=== PATIENT | male | born 1930 | race Caucasian/White ===

== ENCOUNTER 2018-03-27 22:00 | Inpatient (IN) | payer MEDICARE ==
[~2018-03-27] VITALS: Ht 182.9 cm; Wt 63.9 kg
[~2018-03-27 22:00] MED LIST: ALDACTONE25 MG PO; ALENDRONATE SOD70 MG PO; ANORO ELLIPTA1 EACH INH; ASPIR 8181 MG PO; BISOPROLOL FUMAR5 MG PO; CARDURA2 MG PO; CO Q-10200 MG PO; COUMADIN2 MG PO; DILTIAZEM 24HR120 MG PO; IPRAT-ALBUT 0.5-3 ML INH; LANOXIN125 MCG PO; LASIX40 MG PO; LISINOPRIL2.5 MG PO; MIRALAX17 GM PO; MULTI VITAMIN1 EACH PO; OXYBUTYNIN CHLOR5 MG PO; OXYCODONE HCL5 MG PO; SENNA8.6 MG PO; VENTOLIN HFA18 GM INH; ZOCOR20 MG PO
--- OUTSIDE RECORDS SUMMARY | 2018-03-27 22:08 | XMS ---
PreManage Notification: RUDY MARTI Security Project Intern Events No recent Security Events currently on file CRITERIA MET - [facility] - Has Care Guidelines CARE PROVIDERS There are no care providers on record at this time. Guidelines Source: [facility] Guidelines Date: 03/05/2018 Care Coordination: PATIENT IS UNDER SERVICES AT [facility].\T\nbsp; IF PATIENT IS SEEN IN THE ED, PLEASE NOTIFY THEM AT [phone].\T\nbsp; IF AFTER HOURS OR ON WEEKENDS PLEASE CALL SWITCHBOARD AT [phone] AND HAVE ON-CALL RN NOTIFIED. E.D. VISIT COUNT (12 MO.) 1 [facility] 1 [facility]. TOTAL 2 NOTE: Visits indicate total known visits. ED/UCC VISIT TRACKING (12 MO.) 03/27/2018 22:04 ROJELIO Longo TYPE: Emergency COMPLAINT: - [facility] TYPE: Emergency DIAGNOSES: - Shortness of Breath - Acute pulmonary edema - Heart failure, unspecified - Presents with CC of SOB and low 02 sat. - Chronic obstructive pulmonary disease with (acute) exacerbation - Wedge compression fracture of T11-T12 vertebra, initial encounter for closed fracture - Swelling INPATIENT VISIT TRACKING (12 MO.) [facility]14[facility]2017 [facility] TYPE: Inpatient Rehab DIAGNOSES: - Deconditioning 11/11/2017 15:27 [facility] TYPE: General Medicine DIAGNOSES: - Heart failure, unspecified - Chronic obstructive pulmonary disease with (acute) exacerbation - Acute pulmonary edema - Unspecified atrial fibrillation - Repeated falls - Shortness of breath - Wedge compression fracture of T11-T12 vertebra, initial encounter for closed fracture - Low back pain [email or web address]
[2018-03-27] MEDS ORDERED: LASIX20 MG PO (22:39)
[2018-03-28] MEDS ORDERED: K-TAB10 MEQ PO (01:29)
--- NOTE | 2018-03-28 03:00 | NUR ---
PATIENT ARRIVED TO ROOM 129 VIA STRETCHER, TRANSFERED TO BED WITH 1PA. NOW RESTING IN BED, BREATHING IS EVEN AND UNLABORED. DENIES CHEST PAIN OR FEELING SOB. DENIES NEEDS AT THIS TIME. CALL LIGHT WITHIN REACH.
--- NOTE | 2018-03-28 04:30 | NUR ---
PATIENT RESTING IN BED WITH EYES CLOSED, BREATHING IS EVEN AND UNLABORED. CALL LIGHT WITHIN REACH.
--- NOTE | 2018-03-28 05:46 | NUR ---
TITRATED O2 TO 4L O2 VIA NC DUE TO SATURATIONS <88%. PATIENT RR IS 20, DENIES SOB, NO CHEST PAIN. PATIENT NOT DIAPHORETIC, NO APPARENT SIGNS OF DISTRESS. CALL LIGHT WITHIN REACH.
--- NOTE | 2018-03-28 06:11 | NUR ---
NOTIFIED DR. ARCOS REGADING PATIENT'S POTASSIUM OF 5.5 AND SODIUM OF 129. NO NEW ORDERS AT THIS TIME. ALSO CONFIRMED THAT NO FURTHER TROPONIN TESTS WERE NEEDED.
--- NOTE | 2018-03-28 08:07 | NUR ---
PATIENT RESTING IN BED UPON INITIAL ASSESSMENT. PT'S HEART RATE NOTED TO BE LUIZ, ANYWHERE FROM 35-60s. PT IS AWAKE, ALERT, AND ORIENTED. SP02 IS RANING IN THE MID TO UPPER 80-LOW 90s ON 3 L NC. PT NORMALLY WEARS 2 L NC AT HOME AT BASELINE. PT'S DAUGTHER IN LAW BEBA IN ROOM AND BRINGS PT HIS GLASSES AND DENTURES. RT PROVIDING NEB TX. PT IS SHORT OF BREATH WITH TOO MUCH ACTIVITY OR TALKING. CARTER DRAINING CLEAR YELLOW URINE. PT HAS CRACKLES BILATERALLY TO HIS LOWER BASES AND LOW AIR MOVEMENT NOTED TO RIGHT SIDE ESPECIALLY. TRACE PITTING EDEMA NOTED TO BILATERAL LOWER LEGS. SCDs ON. LAB DRAWING NEXT BMP. PLAN OF CARE DISCUSSED WITH PATIENT. CONTINUE TO MONITOR.
--- NOTE | 2018-03-28 09:30 | NUR ---
DR. ARCOS CALLED AND UPDATED ON PT'S HEART RHYTHM AND MOST RECENT POTASSIUM LEVEL. EKG ORDERED AND DONE AT THIS TIME. PT NOTED TO BE HAVING MORE PVCs AND HR MAINTAINING IN THE LOW 40-50s. PT RESTING IN BED. URINE OUTPUT REMAINS CLEAR. MONITOR CLOSELY.
--- NOTE | 2018-03-28 09:53 | NUR ---
DR. ARCOS IN ROOM TO SEE PATIENT AT THIS TIME. CARTER DRAINING CLEAR DILUTE URINE AT THIS TIME.
--- NOTE | 2018-03-28 10:04 | NUR ---
KUB COMPLETED AT THIS TIME. PT IS VERY PAINFUL WHEN LYING ON HIS BACK FLAT. TYLENOL AND FLOMAX GIVEN, WELL AN ADDITIONAL 20 MG IV LASIX AT THIS TIME. PT SHORT OF BREATH WITH MUCH ACTIVITY. STILL ON 3 L NC. CONTINUE TO MONITOR.
--- NOTE | 2018-03-28 11:02 | NUR ---
PATIENT GIVEN POTASSIUM LOWERING PROTOCOL OF MEDICATIONS WHICH INCLUDED 1 AMP OF 13.6 MEQ CALCIUM CHLORIDE, 25 ML OF D50, 10 UNITS OF REGULAR INSULIN IV, AND 1 AMP OF SODIUM BICARB. PT TOLERATED WELL. CARTER CONTINUES TO PUT OUT CLEAR YELLOW URINE. PT ALERT AND SITTING UP WATCHING TV. CALL LIGHT IN PT'S HAND.
[2018-03-28] MEDS ORDERED: SPIRONOLACTONE25 MG PO (12:06)
--- NOTE | 2018-03-28 14:43 | NUR ---
ADDITIONAL 20 MG IV LASIX GIVEN AROUND THIS TIME. PT'S FAMILY ARRIVES IN ROOM AND HAS QUESTIONS ABOUT PATIENT'S CARE AND TIMELINE OF POTENTIAL DISCHARGE. FAMILY ALSO WANTING TO DISCUSS PT'S STATUS WITH PHYSICIAN AT SOME POINT TODAY IF POSSIBLE. DR. CODY TO BE NOTIFIED LATER THIS AFTERNOON. PT'S CARTER CONTINUES TO DRAINE DILUTE YELLOW URINE. PT GIVEN 1000 MG PO TYLENOL FOR CHRONIC BACK PAIN. PT AND FAMILY ALSO CONCERNED ABOUT PT'S BOWEL HABITS, AND THE FACT THAT HE WILL LIKELY NEED STOOL SOFTENERS TO HELP HIM WITH HAVING A BM. CONTINUE TO MONITOR.
[2018-03-28] MEDS ORDERED: WARFARIN SODIUM2 MG PO (15:04)
[2018-03-28] MEDS ORDERED: DAILY MULTIPLE1 EACH PO (15:05)
[2018-03-28] MEDS ORDERED: PRESERVISION A1 EAC3 PO (15:05)
[2018-03-28] MEDS ORDERED: CALCIUM 500 +1 EAC3 PO (15:06)
[2018-03-28] MEDS ORDERED: MYRBETRIQ25 MG PO (15:07)
[2018-03-28] MEDS ORDERED: OXYCODONE HCL5 MG PO (15:09)
[2018-03-28] MEDS ORDERED: NAPROSYN500 MG PO (15:10)
[2018-03-28] MEDS ORDERED: TYLENOL EXTRA500 MG PO (15:11)
--- NOTE | 2018-03-28 15:13 | NUR ---
MED REC COMPLETE
--- NOTE | 2018-03-28 17:19 | NUR ---
LAB IN TO DRAW 1700 LABS AT THIS TIME. PT'S DINNER ORDERED. PT HAS RESTED WELL THIS AFTERNOON. PT SEEMS LESS SHORT OF BREATH TONIGHT AND LUNG SOUNDS SHOWED IMPROVEMENT THIS LAST ASSESSMETN WITH LESS CRACKLES AND MORE AIR ENTRY APPRECIATED. CARTER STILL DRAINING CLEAR YELLOW URINE. CONTINUE TO MONITOR.
--- NOTE | 2018-03-28 18:34 | NUR ---
PATIENT'S OXYGEN TURNED UP TO 4 L NC FROM 3, SP02 WAS HOVERING AT 85-87%. PT ASKED TO TAKE A FEW DEEP BREATHS WHICH HE ATTEMPTS TO DO, BUT STATES, "I JUST DON'T FEEL LIKE I CAN YET TAKE A FULL DEEP BREATH." DR. CODY UPDATED ON PT'S STATUS OVERALL. PT SITTING UPRIGHT IN BED WATCHING TV AND ATE 100% OF HIS DINNER. CONTINUE TO MONITOR.
--- NOTE | 2018-03-28 19:30 | NUR ---
SHIFT REPORT RECEIVED FROM SELAM SEXTON. PT CURRENTLY RESTING IN BED, 2 VISITORS AT BEDSIDE. 4L O2 VIA NC IN PLACE. EMMA PATENT. CALL LIGHT WITHIN REACH.
--- NOTE | 2018-03-28 20:06 | NUR ---
ASSESSMENT COMPLETED. PT IS ALERT/ORIENTED, DENIES PAIN. LUNGS CLEAR, DIM IN BASES, 4L O2 VIA NC IN PLACE, RT IN TO GIVE BREATHING TREATMENT. HR REGULAR, MURMUR NOTED. BOWEL TONES ACTIVE, DENIES NAUSEA, SENNA AND MIRALAX GIVEN. SKIN GROSSLY INTACT, TRACE EDEMA IN BLE, SCD'S IN PLACE. IV IN RIGHT AC IS PAINFUL AND SLUGGISH WHEN FLUSHED, BRUISED AT SITE, D/C'D WNL. SITE IN FOREARM PATENT, SL. PT HAS CALL LIGHT WITHIN REACH, WILL CONTINUE TO MONITOR.
--- NOTE | 2018-03-28 20:26 | NUR ---
20G IV PLACED ON FIRST ATTEMPT VIA ASEPTIC TECHNIQUE IN LEFT FOREARM. PT TOLERATED WELL.
--- NOTE | 2018-03-28 22:05 | NUR ---
PT REMAINS AWAKE AND WATCHING TV. DENIES NEEDS AT THIS TIME, STATES HE THINKS ITS ABOUT TIME TO TRY TO GO TO SLEEP. CALL LIGHT WITHIN REACH, WILL CONTINUE TO MONITOR.
--- NOTE | 2018-03-29 00:17 | NUR ---
PT APPEARS TO BE SLEEPING, NO APPARENT DISTRESS. RESPIRATIONS EVEN AND UNLABORED, RR:21, SPO2: 92% ON 4L VIA NC. LUNGS REMAIN CLEAR/DIM. HR REGULAR WITH MURMUR. CARTER PATENT, DRAINING CLEAR YELLOW URINE. WILL ALLOW FOR REST AND CONTINUE TO MONITOR.
--- NOTE | 2018-03-29 02:25 | NUR ---
PT CONTINUES TO SLEEP, NO APPARENT DISTRESS. RESPIRATIONS EVEN AND UNLABORED, RR:15, SPO2:98% ON 4L, HR:65. WILL ALLOW FOR REST AND CONTINUE TO MONITOR.
--- NOTE | 2018-03-29 04:05 | NUR ---
PT CONTINUES TO SLEEP, NO APPARENT DISTRESS. RESPIRATIONS EVEN AND UNLABORED, RR: 17, SPO2: 98% ON 4L, LUNGS REMAIN CLEAR/DIM. HR REGULAR, MURMUR. CARTER PATENT, UO QS. WILL ALLOW FOR REST AND CONTINUE TO MONITOR.
--- NOTE | 2018-03-29 06:32 | NUR ---
STANDING WEIGHT: 148.1 POUNDS. DOWN 4.3LBS (1.95KG) FROM ADMIT WEIGHT.
--- NOTE | 2018-03-29 08:39 | NUR ---
PATIENT RESTING IN BED THIS AM UPON INITIAL ASSESSMENT. PATIENT STATES HE SLEPT WELL THROUGH THE NIGHT. ASSESSMENT AND VITALS COMPLETE. PT'S OXYGEN TURNED BACK DOWN TO 3 L SP02 NOTED TO BE 97%. PATIENT HELPED UP TO CHAIR THIS AM. LINEN CHANGED. PT'S FAMILY NOW IN ROOM VISITING WITH HIM. PATIENT STATES HE FEELS LIKE HE CAN TAKE SOMEWHAT OF A DEEPER BREATH OVERALL. CRACKLES NOTED TO LOWER BASES STILL. TRACE EDEMA IN PRETIBIAL AREAS. CARTER DRAINING DILUTE YELLOW URINE. AM MEDS GIVEN WITHOUT DIFFICUTLY. PT'S WEIGHT 148.1 LB ON STANDING SCALE THIS AM. CONTINUE TO MONITOR CLOSELY.
--- NOTE | 2018-03-29 09:55 | NUR ---
PATIENT WORKED WITH PHYSICAL THERAPY AND WALKED FROM 129, DOWN TO [address] TO THE END OF CCU [place] BY 130 BEFORE RETURNING TO HIS ROOM. PT USED A FRONT WHEEL WALKER AND REMAINED ON OXYGEN DURING THIS MOVEMENT AND TOLERATED IT WELL. PT STATES HE EVEN SUPRISED HIMSELF WITH HOW WELL HE MOVED. PT NOW SITTING IN CHAIR WATCHING TV. PT'S FAMILY HAS LEFT AT THIS TIME, BUT STATE THEY WILL RETURN LATER TODAY. CONTINUE TO MONITOR.
--- NOTE | 2018-03-29 11:55 | NUR ---
PATIENT WANTING TO WALK AGAIN AND WALKED IN [place] WITH THIS RN. PT AGAIN WALKED TO END OF CCU [place] AND BACK. PT TOLERATED WELL, BUT DID NOTE HIMSELF TO BE A LITTLE MORE WINDED AFTER THIS WALK. LUNCH NOW IN ROOM AND PT UP IN CHAIR EATING. PT WANTING TO WAIT UNTIL THIS AFTERNOON TO SHOWER. PT WILL BE GIVEN A SUPPOSITORY TO TRY AND HELP HIM HAVE A BM. CALL LIGHT WITHIN REACH. CONTINUE TO MONITOR.
--- NOTE | 2018-03-29 13:46 | NUR ---
PATIENT WALKED AGAIN IN HALLWAY AND TOLERATED FAIR. PT THEN INTO BATHROOM TO HAVE A BM WHICH WAS LARGE AND FORMED. DULCOLAX SUPP GIVEN TO PATIENT STILL HE STILL REQUETED TO HAVE IT. PT HAS TWO VISITORS NOW AT BEDSIDE. CONTINUE TO MONITOR.
--- NOTE | 2018-03-29 14:16 | NUR ---
PATIENT HAD ANOTHER BM, SOME IN HIS ATTENDS. PATIENT SAT ON COMMODE AGAIN AND HAD MORE OF A LARGE BM. PT HELPED BACK TO BED AND NOW RESTING. FRIENDS IN ROOM AGAIN.
--- NOTE | 2018-03-29 15:18 | NUR ---
PATIENT'S VISITORS GONE AT THIS TIME AND PATIENT GOING TO REST UNTIL AROUND 1600. PLAN TO WALK PATIENT TO END OF ESP[place]OSA AND HELP HIM SHOWER AROUND 1600.
--- NOTE | 2018-03-29 18:47 | NUR ---
PATIENT WALKED DOWN TO SHOWER ROOM AND TOLERATED SHOWER WELL. PT THEN SAT IN CHAIR AND ATE DINNNER. PT RE-WEIGHED FOR 147.7 LB THIS EVENING. CARTER EMPTIED FOR 925 ML DILUTE URINE. PT'S FAMILY BACK TO VISIT THIS EVENING. PT REMAINS IN CHAIR AT THIS TIME. CONTINUE TO MONITOR.
--- NOTE | 2018-03-29 18:59 | NUR ---
PATIENT HELPED BACK TO BED AT THIS TIME. PT IS A ONE PERSON ASSIST TO TRANSFER AND TOLERATES THIS ACTIVITY WELL. PT AWARE OF HOW MUCH FLUID HE HAS LEFT TO DRINK FOR THE REST OF THE DAY.
--- NOTE | 2018-03-29 19:20 | NUR ---
SHIFT REPORT RECEIVED FROM SELAM SEXTON. PT CURRENTLY SITTING UP IN CHAIR, TRANSFERRED BACK TO BED WITH SBA. 3L O2 VIA NC IN PLACE. EMMA PATENT. IV'S SL. CALL LIGHT WITHIN REACH.
--- NOTE | 2018-03-29 19:53 | EKG ---
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
--- NOTE | 2018-03-29 19:53 | EKG ---
[facility] [address] [place] [address] Signed Junctional bradycardia Possible Anterior infarct (cited on or before 27-MAR-2018) Abnormal ECG When compared with ECG of 27-MAR-2018 22:12, (Unconfirmed) Current undetermined rhythm precludes rhythm comparison, needs review ST no longer depressed in Anterior leads Confirmed by SOURAV CODY MD ([id number]) on 03/29/2018 7:53:23 PM Electronically Signed By: SOURAV CODY MD 03/29/181952 PATIENT NAME: RUDY MARTI Electrocardiogram DATE OF : 34 PHYSICIAN: SOURAV CODY MD REPORT #: [id number] REPORT IS CONFIDENTIAL AND NOT TO BE RELEASED WITHOUT AUTHORIZATION
--- NOTE | 2018-03-29 20:45 | NUR ---
ASSESSMENT COMPLETED. ALERT/ORIENTED, DENIES PAIN. LUNGS CLEAR AND DIM IN THE BASES, 3L O2 VIA NC IN PLACE, DENIES SOB. HR REGULAR, MURMUR, DENIES CHEST PAIN. BOWEL TONES ACTIVE, DENIES NAUSEA. IV SITES PATENT, SL. CARTER PATENT, DRAINING CLEAR YELLOW URINE. PT DENIES NEEDS AT THIS TIME, CALL LIGHT IS WITHIN REACH. WILL CONTINUE TO MONITOR.
--- NOTE | 2018-03-29 22:20 | NUR ---
INCREASED O2 TO 4L, PT DESATURATING INTO LOW-MID 80'S.
--- NOTE | 2018-03-29 23:45 | NUR ---
ASSESSMENT COMPLETED, NO CHANGES FROM PREVIOUS ASSESSMENT. PT DENIES NEEDS AT THIS TIME, WILL CONTINUE TO MONITOR.
--- NOTE | 2018-03-30 02:42 | NUR ---
PT SLEEPING, NO APPARENT DISTRESS. RESPIRATIONS EVEN AND UNLABORED, RR:17, SPO2: 100% ON 4L, HR: 70. WILL ALLOW FOR REST AND CONTINUE TO MONITOR.
--- NOTE | 2018-03-30 04:24 | NUR ---
PT SLEEPING, NO APPARENT DISTRESS. RESPIRATIONS EVEN AND UNLABORED, RR:17, SPO2:99% ON 4L, HR:74. WILL ALLOW FOR REST AND CONTINUE TO MONITOR.
--- NOTE | 2018-03-30 06:15 | NUR ---
COUDE CATHETER REMOVED AFTER 5ML DEFLATED FROM BALLOON. PT TOLERATED WELL. PT UP TO STANDING SCALE WITH SBA, WEIGHT: 145.2 POUNDS. PT TOLERATED ACTIVITY WELL, DENIES SOB. FRESH ICE WATER PROVIDED. NO FURTHER REQUESTS AT THIS TIME.
[2018-03-30] MEDS ORDERED: DOXAZOSIN MESYLA1 MG PO (08:57)
--- NOTE | 2018-03-30 09:05 | NUR ---
PATIENT'S SON IN ROOM EARLIER THIS AM AND PT EATING HIS BREAKFAST. PT STATES HE HAD A GOOD NIGHT OVERALL, BUT STRUGGLED TO FALL ASLEEP. SHEETER MACHINE OPERATOR NOW IN ROOM TALKING WITH PATIENT. PT HAS VOIDED TWICE SINCE EMMA WAS D/C. CALL LIGHT WITHIN REACH. PT REPORTS FEELING LESS SHORT OF BREATH TODAY.
--- NOTE | 2018-03-30 10:23 | NUR ---
PATIENT USES CALL LIGHT AND NEEDS TO WALK INTO BATHROOM TO HAVE A BM. PT HAD SOME IN HIS ATTENDS, AND NOW SITTING ON TOILET. PT ALSO WORKED WITH OCCUPATIONAL THERAPY THIS AM.
--- NOTE | 2018-03-30 11:26 | NUR ---
PATIENT WORKED WITH PHYSICAL THERAPY AND WALKED DOWN TO PHYS THERAPY ROOM AND BACK. DR. CODY IN ROOM TO EVAL PATIENT. RT NOW IN ROOM ADMINISTERING CB LEÓN
--- NOTE | 2018-03-30 11:32 | NUR ---
PATIENT TO TRANSITION TO THE MEDICAL FLOOR WITHOUT TELEMETRY. PATIENT TO BE GIVEN A DOSE OF DIAMOX TODAY. CONTINUE TO MONITOR.
--- NOTE | 2018-03-30 13:11 | NUR ---
REPORT GIVEN TO SELAM ROWAN ON MED/SURG AND PATIENT TAKEN OVER TO ROOM 107 AT 1305.
--- NOTE | 2018-03-30 13:22 | NUR ---
PATIENT TRANSFERED FROM CCU. REPORT RECEIVED FROM SELAM ROWAN. ASSESSMENT DONE. PATIENT SITTING IN CHAIR WATCHING TV. CALL LIGHT WITHIN REACH.
--- NOTE | 2018-03-30 13:51 | NUR ---
PATIENT WAS SLEEPING, FAMILY IN ROOM. CALL LIGHT IN REACH. NO OTHER NEEDS AT THIS TIME.
--- NOTE | 2018-03-30 13:53 | NUR ---
Medications reconciled with RX bottles and patient interview.
--- NOTE | 2018-03-30 14:21 | NUR ---
PATIENT SITTING UP IN HIS CHAIR, WATCHING TV. VITALS TAKEN NO I & OS AT THIS TIME. NO OTHER NEEDS AT THIS TIME
--- NOTE | 2018-03-30 15:53 | NUR ---
ROUNDED ON PATIENT. REFILLED WATER FOR AFTERNOON FREE WATER. CALL LIGHT WITHIN REACH. NO FURTHER REQUESTS AT THIS TIME.
--- NOTE | 2018-03-30 16:07 | NUR ---
REPORT RECEIVED FROM ANUM DOSS. THIS RN TAKING OVER CARE FOR PATIENT. PATIENT SITTING IN RECLINER. 3L [address] PT REPORTS WEARING 2L 02 CHRONICALLY DAY AND NIGHT AT HOME. PT WATCHING TELEVISION. REFUSES STOOL SOFTENERS PLANNED FOR EVENING MED PASS. BM THIS MORNING.
--- NOTE | 2018-03-30 17:20 | NUR ---
PATIENT REQUESTED A SHOWER. SHOWER WAS GIVING BY MELQUIADES GUTIERREZ, PATIENT IS WITH FAMILY, REQUESTED TO STAY UP AND MOVE AROUND. NO OTHER NEEDS AT THIS TIME
--- NOTE | 2018-03-30 18:10 | NUR ---
3L 02 VIA GA. 2L CHRONIC. DUONEBS QID. NEBS Q2P. MIRALAX AND SENNA HELD THIS EVENING. BM THIS MORNING. COUMADIN GIVEN. LASIX THIS MORNING. CARTER OUT THIS MORNING. VOIDING WELL. FINE CRACKLES LEFT LOBE. CLEAR RIGHT LOBE. PT/OT. 1PA/SBA FWW. DAILY WEIGHT 145.2# TODAY. IV X2 SALINE LOCKED. CARDIAC DIET. 1800ML FLUID RESTRICTION.
--- NOTE | 2018-03-30 19:00 | NUR ---
RECEIVED REPORT FROM DAY SHIFT RN. PATIENT IS RESTING IN RECLINER VISITING WITH FAMILY. PATIENT DENIES ANY NEEDS AT THIS TIME. ALL QUESTIONS ANSWERED. CALL LIGHT IN REACH.
--- NOTE | 2018-03-30 20:15 | NUR ---
PATIENT ASSESMENT COMPLETED. PATIENT ASSISTED INTO BED BY COURT INTERPRETER. VITALS TAKEN AND RECORDED BY COURT INTERPRETER. PATIENT DENIES ANY [AIN OR SOB. PATIENT TOELRATED ACITVITY WELL. PATIENT IS A SBA W/FWW AND DOES WELL WITH AMBULATION. PATIENT DENIES ANY FURTHER NEEDS. PATIENT IS NOW RESTING IN BED WATCDHING TV. CALL LIGHT IN REACH. COURT INTERPRETER GAVE PATIENT MORE ICE WATER. PATIENT EDUCATED ON HIS FLUID RESTRICTION AND HOW MUCH IS LEFT UNTIL 0600. PATIENT VERBALIZES UNDERSTANDING.
--- NOTE | 2018-03-30 21:00 | EKG ---
[facility] [address] [facility] [place] [address] Signed Sinus bradycardia with marked sinus arrhythmia with 1st degree AV block Nonspecific T wave abnormality Abnormal ECG When compared with ECG of 28-MAR-2018 01:28, (Unconfirmed) Previous ECG has undetermined rhythm, needs review Borderline criteria for Anterior infarct are no longer present Confirmed by SOURAV CODY MD ([id number]) on 03/30/2018 9:00:21 PM Electronically Signed By: SOURAV CODY MD 03/30/18 2100 PATIENT NAME: RUDY MARTI Electrocardiogram DATE OF : 34 PHYSICIAN: SOURAV CODY MD REPORT #: [id number] REPORT IS CONFIDENTIAL AND NOT TO BE RELEASED WITHOUT AUTHORIZATION
--- NOTE | 2018-03-30 23:34 | NUR ---
PATIENT IS RESTING IN BED WATCHING TV. PATIENT DENIES ANY NEEDS. CALL LIGHT IN REACH. BED ALARM ON FOR SAFETY.
--- NOTE | 2018-03-31 00:12 | NUR ---
1PA/ SBA TO THE BATHROOM AND BACK TO BED. CALL LIGHT AND BEDSIDE TABLE WITHIN REACH.
--- NOTE | 2018-03-31 02:20 | NUR ---
PATIENT AWOKEN WHEN ROOM WAS ENTERED. PATIENT REPOSITIONED IN BED. ASSESMENT COMPLETED. PATIENT DENIES ANY SOB. NO NEEDS NOTED. CALL LIGHT IN REACH.
--- NOTE | 2018-03-31 03:52 | NUR ---
PATIENTS BED ALARM ALERTED STAFF THAT PATIENT WAS GETTING UP. PATIENT ASSISTED TO THE RESTROOM A SBA. PATIENT WAS INCONTINET AND WAS ABLE TO VOID. PATIENTS BEDDING CHANGED. PATIENT IS NOW BACK IN BED RESTING. BED ALARM IS ON FOR SAFETY. CALL LIGHT IN REACH.
--- NOTE | 2018-03-31 04:42 | NUR ---
PATIENT RESTED WELL THROUGHOUT THE SHIFT. PATIENT IS ON A CARDIAC DIET AD 1800ML FLUID RESTRICTION. PAITENT IS ON 3L VIA NC(2L IS CHRONIC). PATIENTIS WORKING WITH PT/OT. PATIENT IS A SBA W/FWW. PATIENT DOES WELL WITH AMBULATION AND IS STEADY ON HIS FEET. PATIENT IS SL X2 IV SITES. PATIENT IS A DAILY WEIGHT. PATIENT IS FORGETFUL AT TIMES. PATIENT DENIED ANY SOB AT REST OR WITH AMBULATION. PATIENTS BED ALARM IS ON FOR SAFETY. PATIENT DOES NOT ALWAYS USE HIS CALL LIGHT APPROPRIATELY.
--- NOTE | 2018-03-31 05:37 | NUR ---
PATIENT ASSESMENT COMPLETED. PATIENTS VITALS TAKEN AND RECORDED. PATIENTS DAILY WEIGHT TAKEN AND RECORDED. PATIENT AMBULATED TO THE RESTROOM A SBA W/FWW. PATIENT IS STEADY ON HIS FEET. PATIENT IS BACK IN BED RESTING. BED ALARM IS IN PLACE FOR PATIENT SAFETY. PATIENT REMAINS ON 3L VIA NC. PATIENT DENIES SOB WITH AMBULATION. PATIENT DENIES ANY FURTHER NEEDS. CALL LIGHT IN REACH.
--- NOTE | 2018-03-31 07:11 | NUR ---
RECIEVED CHANGE OF SHIFT REPORT FROM JAVY DOSS. PATIENT RESTING COMFORTABLY IN BED. SALINE LOCKED. CALL LIGHT WITHIN REACH. WHITE BOARD UPDATED. NO NEEDS AT THIS TIME.
--- NOTE | 2018-03-31 07:41 | NUR ---
PATIENT WAS IN BED UP TO BR W 1 PA. BACK TO BED, RN CHECKING ON HIS WATER, CALL LIGHT IN REACH, NO OTER NEEDS AT THIS TIME.
[2018-03-31] MEDS ORDERED: TAMSULOSIN HCL0.4 MG PO (09:19)
[2018-03-31] MEDS ORDERED: TYLENOL EXTRA500 MG PO (09:21)
[2018-03-31] MEDS ORDERED: MAG-OXIDE400 MG PO (09:22)
[2018-03-31] MEDS ORDERED: SENNA8.6 MG PO (09:23)
--- NOTE | 2018-03-31 09:59 | NUR ---
ROUNDED ON PATIENT FOR MORNING ASSESSMENT AND MEDICATION ADMINSTRATION. PATIENT UP IN CHAIR. 3L VIA NC. NO COMPLAINTS OF PAIN. PLAN TO DISCHARGE PATIENT AND TO ADMINISTER FLU SHOT AT THAT TIME. PHARMACIST IN ROOM TO VISIT WITH PATIENT. WILL CONTINUE TO MONITOR. CALL LIGHT WITHIN REACH. NO COMPLAINTS AT THIS TIME. SALINE LOCKED.
--- NOTE | 2018-03-31 10:54 | NUR ---
FAXED ORDERS TO [facility] IN [place]. RECIEVED FAX CONFIRMATION. TALKED WITH KRYSTA AT [facility]. SHE STATED THAT THEY WILL BE HERE TO PICK HIM UP AT 1330 TODAY.
--- NOTE | 2018-03-31 11:30 | NUR ---
PATIENT SITTING IN HIS CHAIR WATCHING TV, VITALS DONE. NO OTHER NEEDS AT THIS TIME.
--- NOTE | 2018-03-31 12:36 | NUR ---
Patient walked to the bath room w 4WW. 1 assist. back to his chair.watching to TV. call light with in reach, no otherneeds at this time.
--- NOTE | 2018-03-31 14:12 | NUR ---
Certified Heart Failure Nurse Notes: Diagnosis:HFpEF, hyperkalemia PCP: Dr. Jones Admit Wt.: 152 Today's Wt.: 141 Admit BNP: Social support system: Patient is discharging to [facility]. He states we can call his son Blayne with outpatient communications as needed. Weight monitoring: Discussed how to weigh daily/ when to notify PCP Diet: Usual diet not discussed at this initial meeting. Patient states he feels better about salt restrictions since talking to [facility] staff members about it. Usual physical activity: Not discussed at this initial meeting. Recently patient has been too weak to stand for home weights. Patient's ride to care facility arrived during this discussion. Follow-up plans: I will follow up with phone call to facility. Patient agrees to later contact for individual outpatient heart failure education. He may qualify for Pulmonary Rehab- I have contacted Chandrakant Simental [facility] RT Teaching materials given today: [facility] Living with Heart Failure book, Low Sodium Shopping list, Daily weight and symptom monitoring log
--- NOTE | 2018-03-31 14:37 | NUR ---
VISITED WITH PT HE WAS BEING DC'D. HE WAS ALL SMILES AND STATED HE FEELS SO MUCH BETTER. EXTENDED A BLESSING
== END 2018-03-31 13:50 | DRG 292 ==
LOC: ED 22:00 → CCU 22:05 → MS 03-28 02:47 → CCU 03-28 02:47 → MS 03-30 13:10
PROVIDERS: ADMIT Student in an Organized Health Care Education/Training Program
DX: I11.0 Hypertensive heart disease with heart failure (principal); J96.11 Chronic respiratory failure with hypoxia; I50.33 Acute on chronic diastolic (congestive) heart failure; E87.5 Hyperkalemia; I48.91 Unspecified atrial fibrillation; Z79.01 Long term (current) use of anticoagulants; J44.9 Chronic obstructive pulmonary disease, unspecified; N40.0 Benign prostatic hyperplasia without lower urinary tract symptoms; G89.4 Chronic pain syndrome; Z72.89 Other problems related to lifestyle; Z87.311 Personal history of (healed) other pathological fracture
CPT/HCPCS: 36415; 51702; 51798; 71045; 74018; 80048; 80053; 80069; 80162; 83735; 83880; 84100; 84484; 85025; 85610; 85730; 93005; 93010; 94640; 96374; 96375; 96376; 97116; 97162; 97165; 99285; J1120; J1815; J2930

== ENCOUNTER 2018-09-30 16:42 | Inpatient (IN) | payer MEDICARE ==
[~2018-09-30] VITALS: Ht 182.9 cm; Wt 64.0 kg
--- NOTE | 2018-09-30 08:35 | NUR ---
PATIENT ARRIVED TO ROOM 127 VIA STRETCHER WITH SELAM LOZOYA. WITH SELAM LOZOYA, SELAM PLASCENCIA, AND THIS RN, PATIENT SLID TO HOSPITAL BED. PATIENT IS A&O X4, BREATHING IS EVEN AND UNLABORED, SPO2 98% ON 3L O2 VIA NC, LUNGS ARE CLEAR. REPORTS PAIN IN LEFT SHOULDER, STATES THAT PAIN HAPPENED AFTER GROUND-LEVEL FALL BEFORE COMING TO ED. IV BOLUS STARTED IN ED INFUSING THROUGH PATENT IV. PATIENT IS HYPOTENSIVE (SEE DOCUMENTED VITALS), AND BRADICARDIC, PATIENT DENIES SYMPTOMS WITH THIS. DR. SANCHEZ AWARE OF VITALS, CONTINUE WITH IV BOLUS OF NS. SKIN GROSSLY INTACT. PATIENT DENIES NEEDS AT THIS TIME. CALL LIGHT WITHIN REACH.
[~2018-09-30 16:42] MED LIST changes: -ANORO ELLIPTA1 EACH INH; +ATORVASTATIN CA10 MG PO; +CALCIUM 500 +1 EAC3 PO; +COUMADIN3 MG PO; +DAILY MULTIPLE1 EACH PO; +DEMADEX20 MG PO; +DIGOX125 MCG PO; +DOXAZOSIN MESYLA1 MG PO; +FERRLECIT62.5 MG/1 IV; +K-TAB10 MEQ PO; +LASIX20 MG PO; +MAG-OXIDE400 MG PO; +METOPROLOL SUCC25 MG PO; +MYRBETRIQ25 MG PO; +NAPROSYN500 MG PO; +PRESERVISION A1 EAC3 PO; +SPIRONOLACTONE25 MG PO; +TAMSULOSIN HCL0.4 MG PO; +TYLENOL EXTRA500 MG PO; +WARFARIN SODIUM3 MG PO
--- OUTSIDE RECORDS SUMMARY | 2018-09-30 16:44 | XMS ---
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.\T\nbsp; IF PATIENT IS SEEN IN THE ED, PLEASE NOTIFY THEM AT [phone].\T\nbsp; IF AFTER HOURS OR ON WEEKENDS PLEASE CALL SWITCHBOARD AT [phone] AND HAVE ON-CALL RN NOTIFIED. Care History Medical/Surgical 03/30/2018 [facility] - Patient is currently established with [facility]. If patient is seen in the ED during business hours. Please contact CHWs at [facility]. Care Recommendation: This patient has had 5 or more Emergency Department visits in the last 12 months.\T\nbsp; Patient requires education on the scope and purpose of the ED as an acute care provider not a Primary Care Provider and should not be utilized for chronic conditions.\T\nbsp; These are guidelines and the provider should exercise clinical judgment when providing care. E.D. VISIT COUNT (12 MO.) 1 [facility] 2 ROJELIO Zamora TOTAL 3 NOTE: Visits indicate total known visits. ED/UCC VISIT TRACKING (12 MO.) 09/30/2018 16:42 [facility] [place] TYPE: Emergency COMPLAINT: - L SHOULDER PAIN/FALL 03/27/2018 22:04 [facility] [place] TYPE: Emergency COMPLAINT: - HEART FAILURE EXACERBATION 11/11/2017 15:27 [facility] TYPE: Emergency DIAGNOSES: - Shortness of Breath - Acute pulmonary edema - Heart failure, unspecified - Presents with CC of SOB and low 02 sat. - Chronic obstructive pulmonary disease with (acute) exacerbation - Wedge compression fracture of T11-T12 vertebra, initial encounter for closed fracture - Swelling INPATIENT VISIT TRACKING (12 MO.) 06/10/2018 13:37 [facility] [place] TYPE: Medical Surgical COMPLAINT: - CHF DIAGNOSES: - Chronic obstructive pulmonary disease, unspecified - Dependence on supplemental oxygen - Gastro-esophageal reflux disease without esophagitis - Benign prostatic hyperplasia without lower urinary tract symptoms - Atherosclerotic heart disease of [place] coronary artery without angina pectoris - Iron deficiency anemia, unspecified - Paroxysmal atrial fibrillation - Do not resuscitate - Acute on chronic diastolic (congestive) heart failure - Hypertensive heart disease with heart failure - Chronic atrial fibrillation - Acute and chronic respiratory failure with hypoxia - Mixed hyperlipidemia 03/28/2018 02:47 ROJELIO Longo TYPE: Medical Surgical COMPLAINT: - HEART FAILURE EXACERBATION DIAGNOSES: - Chronic obstructive pulmonary disease, unspecified - Unspecified atrial fibrillation - Hypertensive heart disease with heart failure - [employer] (current) use of anticoagulants - Acute on chronic diastolic (congestive) heart failure - Chronic pain syndrome - Other problems related to lifestyle - Encounter for immunization - Benign prostatic hyperplasia without lower urinary tract symptoms - Personal history of (healed) other pathological fracture - Hyperkalemia - Chronic respiratory failure with hypoxia [facility]14[facility]2017 11:[facility] DIAGNOSES: - Deconditioning 11/11/2017 15:27 [facility]: General Medicine DIAGNOSES: - Heart failure, unspecified - Chronic obstructive pulmonary disease with (acute) exacerbation - Acute pulmonary edema - Unspecified atrial fibrillation - Repeated falls - Shortness of breath - Wedge compression fracture of T11-T12 vertebra, initial encounter for closed fracture - Low back pain [email or web address]
[2018-09-30] MEDS ORDERED: NITROFURANTOIN100 M1 PO (17:26)
[2018-09-30] MEDS ORDERED: ELIQUIS2.5 MG PO (17:27)
[2018-09-30] MEDS ORDERED: FERRLECIT62.5 MG/1 IV (17:28)
[2018-09-30] MEDS ORDERED: SPIRONOLACTONE25 MG PO (17:33)
--- NOTE | 2018-09-30 20:12 | EKG ---
[facility] [address] [facility] [place] [address] Signed Sinus bradycardia with 1st degree AV block Otherwise normal ECG When compared with ECG of 28-MAR-2018 09:26, Nonspecific T wave abnormality no longer evident in Lateral leads Confirmed by MELQUIADES SANCHEZ MD ([id number] on 09/30/2018 8:11:50 PM Electronically Signed By: MELQUIADES SANCHEZ MD 09/30/18 2012 PATIENT NAME: RUDY MARTI Electrocardiogram DATE OF : 34 PHYSICIAN: MELQUIADES SANCHEZ MD REPORT #: [id number] REPORT IS CONFIDENTIAL AND NOT TO BE RELEASED WITHOUT AUTHORIZATION
--- NOTE | 2018-09-30 21:45 | NUR ---
UPDATED DR. SANCHEZ THAT PATIENT'S BP IS 69/45 (51), CONFIRMED WITH MANUAL BLOOD PRESSURE. ORDER FOR STAT BLOOD CULTURES AND LACTIC ACID, INCREASE IVF TO 150 CC/HR.
--- NOTE | 2018-09-30 22:43 | NUR ---
PATIENT RESTFUL WITH EYES CLOSED, BREATHING IS EVEN AND UNLABORED, SPO2 98% ON 3L O2 VIA NC. LAST BP 90/48 (59), HEART RATE VARIES BETWEEN 35 AND 65. CALL LIGHT WITHIN REACH, IVF INFUSING PER ORDER.
--- NOTE | 2018-09-30 23:30 | NUR ---
PATIENT CONTINUES TO HAVE HYPOTENSION WITH SYSTOLIC < 70 AND MAP BETWEEN 45 AND 50, NOTIFIED DR. SANCHEZ, 250 CC BOLUS OF NS ORDERED.
--- NOTE | 2018-10-01 00:41 | NUR ---
PATIENT IS RESTFUL WITH EYES CLOSED, BREATHING IS EVEN AND UNLABORED, DENIES PAIN, HAS NO NEEDS AT THIS TIME. CONTINUES TO HAVE HPOTENSION WITH SYSTOLIC < 70 AND MAP BETWEEN 45 AND 50, HEART RATE BETWEEN 42 AND 55. MD IS AWARE AND ON UNIT. PATIENT IS ASYMPTOMATIC.
--- NOTE | 2018-10-01 01:47 | NUR ---
PATIENT REMAINS RESTFUL, BREATHING IS EVEN AND UNLABORED. BP 70/52 (56), 500 CC BOLUS NORMAL SALINE STARTED. PATIENT DENIES NEEDS AT THIS TIME. CALL LIGHT WITHIN REACH.
--- NOTE | 2018-10-01 02:35 | NUR ---
DR. SANCHEZ NOTIFIED THAT PATIENT CONTINUES TO HAVE HYPOTENSION WITH SYSTOLIC <75 AND MAP BETWEEN 47 AND 52. ALSO NOTIFIED HER THAT PATIENT IS ASYMPTOMATIC, SPO2 96% WITH 3L O2, LUNGS ARE CLEAR. NO NEW ORDERS AT THIS TIME.
--- NOTE | 2018-10-01 04:20 | NUR ---
PATIENT REPORTS 7/10 PAIN IN LEFT SHOULDER, PRN TYLENOL GIVEN. ALSO CHANGED LINENS DUE TO INCONTINENT VOID. DENIES FURTHER NEEDS.
--- NOTE | 2018-10-01 05:59 | NUR ---
PATIENT IS RESTFUL WITH EYES CLOSED, BREATHING IS EVEN AND UNLABORED. BP 84/59 (64), HEART RATE 50. FLACC SCORE OF 0. IVF INFUSING PER ORDER, CALL LIGHT WITHIN REACH.
--- NOTE | 2018-10-01 08:07 | NUR ---
pt boosted up in bed with two person assist. pt alert and oriented x4, denies pain, nausea, and sob at this time. pt given breakfast tray.
--- NOTE | 2018-10-01 08:50 | NUR ---
IV SITE INTACT, NO REDNESS OR SWELLING NOTED, PT DENIES PAIN AT SITE, FLUIDS INFUSING EASILY.
--- NOTE | 2018-10-01 10:55 | NUR ---
DISCUSSED PLAN FOR A SHOWER WITH PT. PT STATES HE WOULD LIKE TO SHOWER AFTER LUNCH. OREDERED LUNCH FOR PT. PT IS AWAKE AND ALERT SITTING UP IN BED WATCHING TV. PT GIVEN 650 MG PO TYLENOL FOR 7/10 LEFT SHOULDER PAIN. BLINDS OPENED SO PT CAN SEE OUTSIDE.
--- NOTE | 2018-10-01 12:34 | NUR ---
PT EATING LUNCH, USES CALL LIGHT APPROPRIATLY. VOIDS IN URINAL WHILE IN BED. HANDS WASHED WITH WARM SOAPY WASH CLOTH. PT FINISHING LUNCH TRAY. PT IS ALERT AND ORIENTED X4, DENIES PAIN, NAUSEA, AND SOB AT THIS TIME. HR IS A-FIB RATE CONTROLED.
--- NOTE | 2018-10-01 12:49 | NUR ---
norepi drip started a 2mcg/min.
--- NOTE | 2018-10-01 13:07 | NUR ---
titrated levophed to 4 mcg/min
--- NOTE | 2018-10-01 13:19 | NUR ---
titrated levophed to 8 mcg/min.
--- NOTE | 2018-10-01 13:21 | NUR ---
PT BACK TO BED AT THIS TIME WITH TWO WARM BLANKETS. CALL LIGHT WITHIN REACH. PHONE CALL TO [facility] TO INFORM THEM OF PT BM STATUS. NO NEW ORDERS AT THIS TIME.
--- NOTE | 2018-10-01 13:22 | NUR ---
IV SITE INTACT, NO REDNESS OR SWELLING NOTED, FLUIDS INFUSING EASILY.
--- NOTE | 2018-10-01 13:35 | NUR ---
titrated levophed drip to 14 mcg/min.
--- NOTE | 2018-10-01 13:50 | NUR ---
titrated levophed drip to 16 mcg/min.
--- NOTE | 2018-10-01 15:15 | NUR ---
titrated levophed drip down to 12 mcg/min.
--- NOTE | 2018-10-01 15:40 | NUR ---
titrated levophed drip down to 8 mcg/min.
--- NOTE | 2018-10-01 16:10 | NUR ---
PT GIVEN 650 MG PO TYLENOL FOR LEFT SHOULDER PAIN.
--- NOTE | 2018-10-01 16:50 | NUR ---
TITRATED LEVOPHED DRIP TO 6 MCG/MIN
--- NOTE | 2018-10-01 17:00 | NUR ---
FULL BED BATH COMPLETED, SHAMPOOED PT HAIR. PT FULL ASSIST WITH BATH, ONLY ABLE TO WASH HIS OWN HANDS AND FACE. ALL LINENS CHANGED. PT ABLE TO ASSIST WITH ROLLING FROM SIDE TO SIDE WITH LINEN CHANGE, PAINFUL TO ROLL ONTO THE LEFT SIDE DUE TO RECENT LEFT SHOULDER INJURY. PT REMAINS COOPERATIVE AND ORIENTED.
--- NOTE | 2018-10-01 17:20 | NUR ---
TITRATED LEVOPHED DRIP TO 4 MCG/MIN
--- NOTE | 2018-10-01 17:35 | NUR ---
PT SITTING UP IN BED EATING DINNER AND VISITING WITH HIS SON. PT DENIES SOB, NAUSEA, AND PAIN AT THIS TIME.
[2018-10-01] MEDS ORDERED: AMPICILLIN TRI500 MG PO (17:41)
[2018-10-01] MEDS ORDERED: MYRBETRIQ50 MG PO (17:44)
--- NOTE | 2018-10-01 17:51 | NUR ---
TITRATED LEVOPHED DRIP TO 8 MCG/MIN
[2018-10-01] MEDS ORDERED: ANORO ELLIPTA1 EACH INH (18:43)
[2018-10-01] MEDS ORDERED: FERROUS GLUCON324 M1 PO (18:45)
[2018-10-01] MEDS ORDERED: IPRAT-ALBUT 0.5-3 ML INH (18:46)
[2018-10-01] MEDS ORDERED: PRESERVISION A1 EAC3 PO (18:48)
[2018-10-01] MEDS ORDERED: SENNA8.6 MG PO (18:49)
--- NOTE | 2018-10-01 18:51 | NUR ---
MED REC COMPLETE
--- NOTE | 2018-10-01 19:51 | NUR ---
RECEIVED REPORT AT 1900, PT WAS IN BED READING NEWS PAPER. LEVOPHED DRIP AT THIS TIME IS AT 4MCG/MIN SINCE 1945.
--- NOTE | 2018-10-01 20:45 | NUR ---
NEW BAG OF LEVOPHED MIXED AND STARTED. BP STILL LOW AT TIMES, MAP IS WDL. LOBES ARE CLEAR BUT VERY DIMINISHED IN THE BASES. ABD SOUNDS ARE PRESENT. PERIPHERAL PULSES ARE WDL AND CAP REFILL IS WDL. URINE OUTPUT SO FAR IS ADEQUATE. NO NEW CONCERNS NOTED AT THIS TIME.
--- NOTE | 2018-10-01 20:50 | NUR ---
SECOND IV CATHETER PLACED TO PT'S RIGHT FOREARM, 22 GAUZE. PT TOLERATED WELL. WINDOW AND TAPE IN PLACE. RECENT 225 OUTPUT NOTED AND DOCUMENTED. PT ALSO REPORTED 7/10 PAIN IN LEFT SHOULDER, PRN TYLENOL GIVEN. NO FURTHER NEEDS, WATER AND CALL LIGHT IN REACH.
--- NOTE | 2018-10-01 22:07 | NUR ---
LEVOPHED GOING AT 12MCG/MIN. CAP REFILL IS WDL, PERIPHERAL PULSES ARE +2. HANDS AND FEET ARE WARM TO TOUCH. PT DENIES ANY SOB. URINE OUTPUT IS ADEQUATE. PT WAS ABOUT TO FALL ASLEEP. WILL CONTINUE TO MONITOR. NO NEW COCNERNS NOTED AT THIS TIME.
--- NOTE | 2018-10-01 22:38 | NUR ---
LEVOPHED DRIP TITRATED DOWN TO 8MCG/MIN. FRESH WATER AT BEDSIDE, URINAL EMPTIED. CALL LIGHT IN REACH.
--- NOTE | 2018-10-01 23:48 | NUR ---
PAIN IS WELL CONTROLLED WITH PRN TYLENOL. LEVOPHED DRIP IS AT 4-12MCG/MIN. PERIPHERAL PULSES ARE WDL, CAP REFILL IS WDL. LOBES ARE CLEAR BUT VERY DIMINISHED IN THE BASES. URINE OUTPUT IS ADEQUATE. IV SITE IS WDL. WILL CONTINUE TO MONITOR.
--- NOTE | 2018-10-01 23:48 | NUR ---
LEVOPHED DRIP TITRATED UP TO 8 MCG/MIN, IV SITE WNL. CALL LIGHT IN REACH.
--- NOTE | 2018-10-02 00:53 | NUR ---
PT AT THIS TIME IS SLEEPING. LEVOPHED AT 8MCG/MIN AT THIS TIME.
--- NOTE | 2018-10-02 02:08 | NUR ---
I&O'S RECORDED. LEVOFED DRIP AT 8MCG/MIN, IV SITE WNL. CALL LIGHT IN REACH.
--- NOTE | 2018-10-02 02:29 | NUR ---
PT IS SLEEPING AT THIS TIME. LEVOPHED DRIP AT 8MCG/MIN. V/S OVERALL ARE WDL. IV SITE IS WDL.
--- NOTE | 2018-10-02 03:07 | NUR ---
PT RECEIVED ANOTHER DOSE OF TYLENOL FOR PAIN OF 03/16. PERIPHERAL PULSES +2, CAP REFILL IS WDL, LEVOPHED AT 8MCG/MIN.
--- NOTE | 2018-10-02 04:24 | NUR ---
PT IS RESTING FOR THE MOST PART. NO CHANGE WITH 0400 ASSESSMENT NOTED. PAIN IS WELL CONTROLLED WITH PRN TYLENOL. LEVOPHED AT 4MCG/MIN AT THIS TIME.
--- NOTE | 2018-10-02 06:20 | NUR ---
PT OVERALL HAD A RESTFUL NIGHT. PT HAS REMAINED ON LEVOPHED DRIP ALL SHIFT. DOSE WAS FROM 4MCG-12MCG. MOSTLY PT WAS AT 8MCG/MIN HOWEVER. LOBES HAVE BEEN CLEAR BUT DIMM IN THE BASES. HR IS IRREGULAR WITH A 1ST DEGREE HEART BLOCK, A-FIB AT TIMES, FREQUENT PVC'S AND MULTIFORM PVC'S. PT ALSO HAD A FEW PAUSES >2SEC. PERIPHERAL PULSES ARE +2, IV SITES ARE WDL, NO INFILTRATION NOTED. CAP REFILL IS < 3SEC. RR IS STILL IN THE 20'S FOR THE MOST PART. PT DENIED SOB. PAIN IS CONTROLLED WITH PRN TYLENOL BUT THE 6HR WINDOW MAY BE A BIT TOO LONG. PERHAPS ANOTHER MEDICATION COULD BE ADDED. PT MAY BENEFIT FORM A LIDOCAINE PATCH. NO NEW CONCERNS WERE NOTED SO FAR THIS SHIFT.
--- NOTE | 2018-10-02 07:35 | NUR ---
levophed drip down to 4 mcg/min
--- NOTE | 2018-10-02 07:50 | NUR ---
levophed drip turned off.
--- NOTE | 2018-10-02 07:51 | NUR ---
pt sitting up in bed eating breakfast at this time, pt denies pain, nausea, and sob at this time.
--- NOTE | 2018-10-02 10:23 | NUR ---
SPOKE WITH ASST DIRECTOR AT [facility] THEY ARE INTENDING FOR PATIENT TO DISCHARGE HOME TO THEIR FACILITY WHEN MEDICALLY STABLE. SHE STATES THEY HAVE NEEDED EQUPMENT. PATIENT IS MOSTLY WHEELCHAIR BOUND. SHE KNOWS OF NO NEED EQUIPMENT UNLESS A NEW NEED DEVELOPS WHILE HERE. SHE STATES TO LET THEM KNOW THE DAY BEFORE ANTICIPATED DISCHARGE.
--- NOTE | 2018-10-02 12:30 | NUR ---
SPOKE WITH PATIENT IN ROOM. PATIENT IS EATING LUNCH ON OWN. PATIENT LIVES AT [facility]. PATIENT STATES HE PLANS TO RETURN THERE AT DISCHARGE. PATIENT STATES HE KNOWS OF NO EQUIPMENT HE NEEDS. HE HAS OWN WHEELCHAIR IN ROOM. DISCUSSED THAT HE SHOULD UNDERSTAND ALL DIAGNOSIS AND MEDICATIONS AND SIDE EFFECTS. HE STATES UNDERSTANDING. PATIENT DENIES QUESITONS AT THIS TIME. WILL CONTINUE TO FOLLOW.
--- NOTE | 2018-10-02 15:25 | NUR ---
PT ASSISTED UP TO THE CHAIR WITH TWO PERSON ASSIST AND WALKER. PT GIVEN PARTIAL BEDBATH, CLEAN ATTENDS AND GOWN PLACED. PT GIVEN PARTIAL BED BATH. PT REPORTS WOB HAS INCREASED THE AFTERNOON.
--- NOTE | 2018-10-02 15:38 | NUR ---
PT UP TO BEDSIDE COMMODE WITH TWO PERSON ASSIST. CALL LIGHT WITHIN REACH. PT USES CALL LIGHT APPROPRIATLY.
--- NOTE | 2018-10-02 15:50 | NUR ---
PT BACK TO CHAIR FROM [facility], ONLY ABLE TO PASS FLATUS.
--- NOTE | 2018-10-02 19:30 | NUR ---
[employer]WN [employer]ERS'Ema FROM DAY SHIFT NURSE [facility]. REPORTS PT UP TO CHAIR, NEW MEDICATION FOR PAIN MANAGEMENT, UNABLE TO HAVE BM AND SENNA GIVEN EARLY SO NO 2100 DOSE NEEDED. PT RESTING IN CHAIR AT THIS TIME.
--- NOTE | 2018-10-02 20:25 | NUR ---
Vitals were complete and patient asked if he could use the urinal. bedside table and call light are in place. patient is in a good mood as per usual.
--- NOTE | 2018-10-02 21:25 | NUR ---
patient asked for a denture cup for his teeth. call light and bed side table are within reach.
--- NOTE | 2018-10-02 21:30 | NUR ---
AAOX4 AND RESPONDING APPROPRIATELY. AFIB NOTED ON MONITOR. BUL CLEAR, BLL DIMINISHED, DEEP BREATHING COMPLETED, NO COUGH, CHRONIC 3L O2. BOWEL TONES ACTIVE X4, DENIES NAUSEA, TOLERATING REGULAR DIET. VOIDING QS. CMS INTACT. REPORTS PAIN WITHIN TOLERABLE LIMITS, 4/10, CHRONIC 3/10 BACK PAIN. IV SITES SALINE LOCKED, FLUSHED, PATENT, WNL. 2PA WITH FWW BABK TO BED, TOLERATED WELL. EDUCATION PROVIDED ON PLAN OF CARE, SAFETY, FALL PREVENTION, AND MEDICATION, VERBALIZED UNDERSTADNING, NO QUESTIONS, AGREEABLE WITH PLAN. DENIES OTHER NEEDS. CALL LIGHT WITHIN REACH
--- NOTE | 2018-10-03 00:30 | NUR ---
PT REQUESTING "NEW PAIN PILL" FOR 6/10 PAIN, GIVEN. CRACKLES TO BLL AUSCULTATED, INSTRUCTED TO DEEP BREATH, NO IMPROVEMENT. NO ADDITIONAL ACUTE CHANGES TO ASSESSMENT. DENIES OTHER NEEDS. CALL LIGHT WITHIN REACH.
--- NOTE | 2018-10-03 01:30 | NUR ---
CALL LIGHT ANSWERED, PT REQUESTING TO HAVE URINAL DUMPED, COMPLETED. STATES IMPROVMENT IN PAIN. DENIES OTHER NEEDS.
--- NOTE | 2018-10-03 03:00 | NUR ---
CALL LIGHT ANSWERED, PT REQUESTING URINAL TO BE EMPTIED, COMPLETED. DENEIS OTHER NEEDS. CALL LIGHT WITHIN REACH.
--- NOTE | 2018-10-03 04:21 | NUR ---
NO ACUTE CHANGES TO ASSESSMENT. PT RESTING COMFORTABLY AND AWAKENS EASILY. REPORTS PAIN IMPROVED. DENIES OTHER NEEEDS. CALL LIGHT WITHIN REACH.
--- NOTE | 2018-10-03 06:34 | NUR ---
PT RESTED ON AND OFF FOR MAJORITY OF SHIFT. PRN NORCO 5/325 GIVEN X3, REPORTS PAIN WELL MANAGED WITH MEDICATION. BUL CLEAR AND FINE CRACKLES TO BLL, CHRONIC 3L O2, RR 18/24. SYSTOLIC BP 90-100'S FOR MOST OF SHIFT, LAST BP AT 0600 151/84, CONTINUE TO MONTIOR. VOIDING QS. SALINE LOCKED.
--- NOTE | 2018-10-03 08:00 | NUR ---
ASSESSMENT DONE, C/O PAIN IN LEFT SHOULDER AND LEFT SIDE. HAS BRUISE ON LEFT ANTERIOR CHEST WALL. TALKED WITH PATIENT ABOUT PLAN OF CARE FOR DAY, IS UNDERSTANDING. TOOK BREAKFAST WELL. DENIES NAUSEA.
--- NOTE | 2018-10-03 09:45 | NUR ---
REPORT TO MEDICAL FLOOR.
--- NOTE | 2018-10-03 09:50 | NUR ---
SPONGE BATH GIVEN. TRANSFERRED TO CHAIR. TELE #6 APPLIED.
--- NOTE | 2018-10-03 10:15 | NUR ---
TO MED-SURG VIA CHAIR.
--- NOTE | 2018-10-03 10:30 | NUR ---
PATIENT ARRIVED BY CHAIR FROM CCU. PATIENT RATES LEFT SHOULDER PAIN 6/10 AND WOULD LIKE HIS PAIN MEDICATIONS SOON, PLAN TO GIVE MEDICATION AT 1115. PATIENT HAS CHRONIC 3L OF OXYGEN ON, DENIES OTHER NEEDS AT THIS TIME. FOCUSED RESPIRATORY AND PAIN ASSESSEMENTS DONE UPON ARRIVAL.
--- NOTE | 2018-10-03 11:40 | NUR ---
PO PAIN PILL GIVEN FOR 7/10 LEFT SHOULDER PAIN. LUNCH ORDERED FOR PATIENT.
--- NOTE | 2018-10-03 12:14 | NUR ---
PATIENT UP TO COMMODE WITH 1 ASSIST, LARGE BM, BACK TO CHAIR FOR LUNCH.
--- NOTE | 2018-10-03 14:49 | NUR ---
PATIENT UP TO CHAIR. ORDERING DINNER, DENIES NEEDS.
--- NOTE | 2018-10-03 17:17 | NUR ---
PATIENT HAS DONE WELL TODAY, WAS UP TO CHAIR FOR MOST OF THE DAY, RESTED IN BED IN THE LATE AFTERNOON. PATIENT HAS CHRONIC BACK PAIN, ADDITIONAL LEFT SHOULDER PAIN FROM PREVIOUS FALL AT HOME. PATIENT IS GIVEN ONE NORCO EVERY 6 HOURS, THE LAST DOSE AT 1715. PATIENT HAD BM TODAY, VOIDS TO URINAL, AND IS ONE PERSON ASSIST FROM BED TO CHAIR. PATIENT TO HAVE PHYSICAL THERAPY EVALUATION AND POSSIBLE RETURN TO [facility] TOMORROW.
--- NOTE | 2018-10-03 19:00 | NUR ---
SHIFT REPORT RECEIVED. PATIENT RESTING IN BED WATCHING TV. DENIES ANY NEEDS AT THIS TIME. CALL LIGHT IN REACH.
--- NOTE | 2018-10-03 20:17 | NUR ---
patient requested to take his dentures out so i got his denture cup and helped him out. he does not need anything else at this time, bedside table and call light within reach.
--- NOTE | 2018-10-03 21:00 | NUR ---
PATIENT PROVIDED WITH EVENING MEDICATIONS. PATIENT REPORTS PAIN IN HIS L SHOULDER, 6/10. PRN NORCO PROVIDED. INSTRUMENT SETTER IN ROOM TO COMPLETE VS, WNL. PATIENT APPEARS SLIGHTLY SOB AFTER HAVING TO ROLL FOR A BED CHANGE DUE TO WATER BEING SPILLED. PATIENT REQUEST PRN NEB WHICH WAS PROVIDED. PATIENT HAD SOME EXP WHEEZES PRIOR TO THE NEB WHICH RESOLVED. AND CRACKLES IN SOLO LUNG BASES, WHICH CONTINUE POST-NEB. PATIENT REPORTS FEELING LESS SOB AND APPEARS COMFORTABLE. NO OTHER NEEDS AT THIS TIME. CALL LIGHT IN REACH.
--- NOTE | 2018-10-03 23:17 | NUR ---
PATIENT APPEARS TO BE SLEEPING SOUNDLY. RR18. CALL LIGHT IN REACH.
--- NOTE | 2018-10-04 01:15 | NUR ---
PATIENT APPEARS TO BE SLEEPING SOUNDLY. RR 18. 3L NC IN PLACE. CALL LIGHT IN REACH.
--- NOTE | 2018-10-04 03:00 | NUR ---
PATIENT EXIT THE BED WITHOUT CALLING FOR ASSISTANCE. PATIENT WAS STANDING AT BEDSIDE, VERY UNSTEADY AND LEANING ON THE BEDSIDE TABLE WHILE USING THE URNAL. ASSISTED THE PATIENT IN STANDING, PATIENT APPEARS CONFUSED. 2ND RN IN TO ASSIST. PATIENT'S BED CHANGED DUE TO INCONTINENCE. FRESH ATTENDS AND GOWN PLACED. PATIENT ABLE TO SIT IN WC THEN TRANSFER BACK TO BED. PATIENT APPEARS MORE AWAKE AT THIS TIME AND ORIENTED TO PLACE AND TIME. PATIENT APPEARS SOB, DENIES NEB TREATMENT. REPORTS PAIN IN LEFT SHOULDER, WARM PACK PROVIDED. BED ALARM ON. REMINDED PATIENT TO USE CALL LIGHT.
--- NOTE | 2018-10-04 04:50 | NUR ---
PATIENT HAVING 8/10 LEFT SHOULDER PAIN AND GIVEN 1 PO NORCO.
--- NOTE | 2018-10-04 05:14 | NUR ---
patients VS, I&O's and weight were completed. bedside table in place and call light within reach.
--- NOTE | 2018-10-04 05:39 | NUR ---
PATIENT SLEPT MOST OF THE NIGHT. PATIENT HAD SOME MOMENTS OF CONFUSION THROUGHOUT THE SHIFT BUT IS OTHERWISE AAOX4. PRN NORCO FOR LEFT SHOULDER PAIN. WARM PACK PRN. PATIENT HAS LIMITED MOVEMENT OF LEFT LIMB DUE TO PAIN. SBA TRANSFER TO . PRN NEB X1. 3L NC. REGULAR DIET. IV SL.
--- NOTE | 2018-10-04 07:23 | NUR ---
Pt resting in bed with no complaints at this time and his call costa within reach. Bedside report recived from Sarai DOSS.
--- NOTE | 2018-10-04 07:55 | NUR ---
PT RESTING IN HIS BED AND EATING BREAKFAST AT THIS TIME. HE DENIES ANY CP OR SOB. HE STATES HIS LEFT SHOULDER PAIN IS A 5/10 FROM HIS FALL WHICH HE STATES IS ACCEPTABLE TO HIM AND HE DECLINES THE NEED FOR ANYTHING FOR IT. PT VOIDING CLEAR YELLOW URINE WITHOUT DIFFICULTY.
--- NOTE | 2018-10-04 08:54 | NUR ---
Pt states his left shoulder pain is a 7/10 at this time. 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 He was informed to tell me if the pain increases or if he changes his mind on the Tylenol. The pt states understanding of this.
[2018-10-04] MEDS ORDERED: HYDROCODON-ACE1 EA10 PO (09:30)
[2018-10-04] MEDS ORDERED: TORSEMIDE5 MG PO (09:31)
--- NOTE | 2018-10-04 10:00 | NUR ---
Pt working with physical therapy at this time.
--- NOTE | 2018-10-04 10:03 | NUR ---
Per the physical therapist his sat decreased to 83% on 3L and HR increased to 120 with standing. Sat increased and hr decreased back to baseline with sitting back down. The hr quickly returned and the sat took about 5 minutes to return. Pt denies feeling dizzy when he stood up.
--- NOTE | 2018-10-04 10:20 | NUR ---
1010: notified of pt status with activity. New orders recieved.
--- NOTE | 2018-10-04 11:01 | NUR ---
PT RESTING IN HIS CHAIR AND HE DENIES ANY CHEST PAIN BUT STATES HE IS HAVING A "LITTLE DIFFICULTY WITH HIS BREATHING". SAT IS 92% AT THIS TIME. UPPER LUNGS ARE CLEAR AND CRACKLES NOTED IN THE BASES.
--- NOTE | 2018-10-04 11:49 | NUR ---
Pt states his breathing feels "better". His left shoulder pain is now a 5/10 which he states is acceptable to him.
--- NOTE | 2018-10-04 12:07 | NUR ---
Pt's HR increased to the 120's while using the urinal. aware.
--- NOTE | 2018-10-04 12:25 | NUR ---
I was notified by [facility] that the pt has about 30 seconds of SVT. Pt denies any problems and is eating lunch when I stepped into his room. HR 112, RR 20, bp 144/85, MAP (94), sat 92% on 3L. Dr Montgomery was called and nofied of the pt's status.
--- NOTE | 2018-10-04 13:19 | NUR ---
Pt states his shoulder pain level is now a 4.5/10 and he denies any CP. HR is now 110.
--- NOTE | 2018-10-04 15:24 | NUR ---
HR in the 90's at this time and appears to be SSS.
--- NOTE | 2018-10-04 17:12 | NUR ---
Pt denies any change in how he is feeling with the increased HR and he continues eating his dinner. A tele sheet was printed out from CCU and Dr Dougherty was called and notified of the event.
--- NOTE | 2018-10-04 17:24 | NUR ---
DR ARCOS VISITED WITH THE PT AND CHECKED UP ON HIM A FEW MINUTES AGO.
--- NOTE | 2018-10-04 18:09 | NUR ---
PT BECOME SOB, HR INCREASED 120'S AND O2 SAT DECREASED TO 83% WITH STANDING FOR PHYSICAL THERAPY. PT HAD 2 EPISODES OF SVT WITH RATES HITTING AROUND 200. HE WAS NON-SYMPTOMATIC, HIS VITALS REMAINED STABLE. LABS HAVE BEEN DRAWN AND HE WAS GIVEN IV DIGOXIN, LASIX AND HIS MAG WAS REPLACED. PT CONTINUES TO HAVE LEFT SHOULDER PAIN R/T HIS FALL AND HAS PRN NORCO.
--- NOTE | 2018-10-04 19:00 | NUR ---
SHIFT REPORT RECEIVED. PATIENT RESTING IN BED. DENIES PAIN OR SOB AT THIS TIME. TELE IN PLACE, IRREGULAR RHYTHM NOTED WITH HR 80-90. PATIENT DENIES NEEDS AT THIS TIME. CALL LIGHT IN REACH.
--- NOTE | 2018-10-04 20:45 | NUR ---
PATIENT PROVIDED WITH EVENING MEDS. PATIENT REPORTS GOOD PAIN CONTROL AT THIS TIME IN HIS LEFT SHOULDER WITH THE PRN NORCO. DENIES ANY CONCERNS. PATIENT HAS BEEN VOIDING FREQUENTLY AFTER RECEIVING IV LASIX, USES URNAL INDEPENDENTLY. PATIENT TOLERATING 3L NC. LUNG SOUNDS ARE CLEAR IN SOLO UPPER LOBES WITH UNFAMILIAR ADVENTISIOUS LUNG SOUNDS IN BASE OF LUNGS AT END OF EXPIRATION. PATIENT DENIES FEELING SOB. NO CRACKLES NOTED. PATIENT TOLERATING REGULAR DIET. NO EDEMA NOTED. PATIENT DENIES ANY NEEDS AT THIS TIME. CALL LIGHT IN REACH.
--- NOTE | 2018-10-04 21:07 | NUR ---
VS along with I&O's were complete. Patient requested his urinal be empited and I suggested a breif changed which he agreed to. He also requested that his teeth be put in a denture cup for tonight.
--- NOTE | 2018-10-04 22:00 | NUR ---
PATIENT REQUESTING PRN NORCO FOR PAIN. DISCUSSED TIME FRAME WITH PATIENT ON HIS NEXT AVAILABLE DOSE. PATIENT DECLINED PRN TYLENOL AND WILL WAIT UNTIL NORCO IS AVAILABLE. HOT/COLD PACK OFFERED AND REFUSED. PATIENT DECLINES FURTHER NEEDS. CALL LIGHT IN REACH.
--- NOTE | 2018-10-04 22:25 | NUR ---
Patient asked for ice water and a pillow under his feet because it feels like his feet are swelling.
--- NOTE | 2018-10-04 23:30 | NUR ---
PATIENT PROVIDED WITH PRN NORCO FOR 8/10 L SHOULDER PAIN. PATIENT STATES "THIS HAS BEEN THE WORST IT HAS FELT SINCE IT HAPPENED". PATIENT DECLINES HOT/COLD PACK.
--- NOTE | 2018-10-05 01:23 | NUR ---
PATIENT'S URNAL EMPTIED. HE IS RESTING IN BED WATCH TV. DENIES ANY NEEDS. APPEARS COMFORTABLE. CALL LIGHT IN REACH.
--- NOTE | 2018-10-05 02:57 | NUR ---
PATIENT REQUEST HIS BLANKETS TO BE RESITUATED AND URNAL EMPTIED. IKER DOSS ASSISTED PATIENT.
--- NOTE | 2018-10-05 05:42 | NUR ---
PATIENT PROVIDED WITH PRN NORCO FOR LEFT SHOULDER PAIN 02/13. PATIENT CALLED SOON 6 HOURS HAD PASSED. STATES "I'VE BEEN WATCHING THE CLOCK BECAUSE ITS BEEN HURTING PRETTY BAD". ENCOURAGED PATIENT TO ALERT STAFF WHEN PAIN IS INCREASING. DISCUSSED PAIN CONTROL OPTIONS. PATIENT UNSURE IF HE WILL HAVE GOOD PAIN CONTROL ONCE DISCHARGED DUE TO NEEDING TO CARE FOR HIMSELF AT HIS ASSISTED LIVING FACILITY. PATIENT ABLE TO TRANSFER BUT HAS LIMITED MOVEMENT OF LEFT SHOULDER. WILL DISCUSS WITH DAYSHIFT TO CONSIDER PRIOR TO DC. PATIENT VERBALIZED AGREEMENT WITH THIS PLAN.
--- NOTE | 2018-10-05 06:28 | NUR ---
PATIENT HAS SLEPT ON AND OFF THIS SHIFT. PRN NORCO Q6H FOR LEFT SHOULDER PAIN. PATIENT HAS CONSISTENTLY RATED PAIN 6-8/10 AND HAS NOT BEEN ABLE TO USE HIS LEFT ARM AT ALL. 1PA TO WC STAND PIVOT FOR TRANSFER. 3L NC, PRN NEBS. PATIENT HIGHLY ACTIVITY INTOLERANT. HR 80-90'S IRREGULAR, TELE 6. IV SL. REGULAR DIET.
--- NOTE | 2018-10-05 06:31 | NUR ---
VS and I&O's were complete.
--- NOTE | 2018-10-05 07:05 | NUR ---
BEDSIDE REPORTS..PT RESTING IN BED. NO COMPLAINTS OR REQUESTS. ALERT AND ORIENTED
--- NOTE | 2018-10-05 09:00 | NUR ---
SPOKE WITH PATIENT AND FAMILY. PATIENT REMAINS PLANNING TO RETURN TO [facility] AT DISCHARGE. HE STATES HE IS STILL FEELING SOME SOB AND DOES NOT THINK HE IS READY TO GO HOME TODAY. DISCUSSED FOR THEM TO UNDERSTAND DISCHARGE INSTRUCTIONS, DIAGNOSIS, MEDICATIONS (AND SIDE EFFECTS) AT DISCHARGE. NO QUESTIONS AT THIS TIME. WILL FOLLOW NEEDED.
--- NOTE | 2018-10-05 10:19 | NUR ---
RETURNED CALL TO RANDAL DOSS AT [facility].
--- NOTE | 2018-10-05 11:08 | NUR ---
PT WORKING WITH PHYSICAL THERAPY. HR 97 BPM AT THIS TIME. PT TOLERATED ACTIVITY WELL
--- NOTE | 2018-10-05 11:10 | NUR ---
PATIENT IN WHEEL CHAIR LOOKING OUTSIDE. LINENS CHANGED. FRESH WATER GIVEN. CALL LIGHT IN REACH. NO FURTHER NEEDS AT THIS TIME.
--- NOTE | 2018-10-05 11:34 | NUR ---
PT SITTING UP IN W/C, FACING WINDOW, PERSONAL SUPPLIES AT SIDE, IS CALL LIGHT. PT REPORTS THAT HIS PAIN TO LEFT SHOULDER IS IMPROVED WITH LIDOCAINE PATCH, RATES PAIN 4/10. DENIED NEEDS AT THIS TIME.
--- NOTE | 2018-10-05 13:35 | NUR ---
PATIENT TRANSFERED FROM WHEEL CHAIR TO BED, 1PA. CALL LIGHT IN REACH. NO FURTHER NEEDS AT THIS TIME.
--- NOTE | 2018-10-05 13:44 | NUR ---
PT IN BED, HOB ELEVATED. PT REPORTED THAT PAIN TO LEFT SHOULDER IS WELL CONTROLLED AT THIS TIME. PERSONAL SUPPLIES AND CALL LIGHT IN REACH. PT EDUCATED REGARDING INSENTIVE SPIROMETER USE. PT USED INSENTIVE SPIROMETER AFTER THIS RN ENCOUARGED HIM TO.
--- NOTE | 2018-10-05 14:53 | NUR ---
PT IN BED, AWAKE, ALERT, WATCHING TV. RATED PAIN TO LEFT SHOULDER 4/10 AT REST, 6/10 WITH MOVEMENT. GAVE SCHEDULED TYLENOL. PT REMAINS ON 3L O2 VIA NC.
--- NOTE | 2018-10-05 16:19 | NUR ---
RECEIVED A MESSAGE FOR CALL BACK FROM SHAYNE [facility] [phone]. RETURNED AND SPOKE WITH SHAYNE. QUESTIONS ANSWERED REGARDING PATIENTS ADMIT AND CHANGE TO INPATIENT STATUS. THEY WISH TO BE NOTIFIED FOR DISCHARGE IF ORDERS WILL BE RESUMED FOR CARE AT FACILITY.
--- NOTE | 2018-10-05 16:55 | NUR ---
PT REPOSITIONED IN BED WITH ASSISTANCE FROM THIS RN. SITTING UPRIGHT, EATING DINNER. RATES PAIN TO LEFT SHOULDER 4/10, REPORTS THIS IS TOLERABLE LEVEL. DENIES NEEDS.
--- NOTE | 2018-10-05 17:38 | NUR ---
PATIENT SITTING UP IN BED WATCHING TV. FRESH WATER GIVEN. CALL LIGHT IN REACH. NO FURTHER NEEDS AT THIS TIME.
--- NOTE | 2018-10-05 18:43 | NUR ---
PT ON TELE # 6, HR IRREGULAR. PT ON 3L O2 VIA NC, CHRONIC. FINE CRACKLES NOTED IN BASES OF LUNGS ON AUSCULTATION. PT C/O 3-12/14 PAIN TO LEFT SHOULDER, REPORTS PAIN IMPROVED WITH NEWLY ORDERED SCHEDULED TYLENOL AND LIDOCAINE PATCH. IV SALINE LOCKED. 2 PERSON ASSIST WITH TRANSFERS. PT UP IN W/C MUCH OF SHIFT. TOLERATED WELL. ECHO DONE THIS AM. PT HAD MAGNESIUM IV REPLACEMENT THIS AM. WILL HAVE DIGOXIN LAB LEVEL DRAWN 10/06/18 AM.
--- NOTE | 2018-10-05 18:57 | NUR ---
SHIFT REPORT RECEIVED FROM DAYSNEFT SELAM SERRANO AT BEDSIDE. PT AWAKE, RR WNL, DENIES NEEDS AT THIS TIME. CALL LIGHT IN REACH.
--- NOTE | 2018-10-05 21:30 | NUR ---
ASSESSMENT COMPLETE, SCHEDULED MEDICATIONS GIVEN (SEE EMAR). PT RATES PAIN 5/10, SCHEDULED TYLENOL GIVEN. LIDOCAINE PATCH REMOVED. PT ON 3LNC, TELE#[address], IRREGULAR RHYTHM. PT DENIES CHEST PAIN. BILATERAL CRACKLES AUSCULTATED IN LOWER BASES. 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 CALL LIGHT IN REACH.
--- NOTE | 2018-10-05 21:57 | NUR ---
V/S AND I&O DONE AND CHARTED.
--- NOTE | 2018-10-05 23:17 | NUR ---
PT RESTING IN BED, EYES CLOSED, RR WNL. TELE#[address], HR 75, IRREGULAR RHYTHM . CALL LIGHT IN REACH.
--- NOTE | 2018-10-06 02:36 | NUR ---
PT RESTING IN BED, EYES CLOSED, RR WNL. TELE#6 HR 72, IRREGULAR. NO DISTRESS NOTED. PT APPEARS COMFORTABLE. CALL LIGHT IN REACH.
--- NOTE | 2018-10-06 03:58 | NUR ---
PT RESTING IN BED, EYES CLOSED. NO DISTRESS NOTED. TELE #[address], HR 70 AND IRREGULAR. CALL LIGHT IN REACH.
--- NOTE | 2018-10-06 05:45 | NUR ---
ASSESSMENT COMPLETE, NO NEW CONCERNS. VSS AND I&O'S RECORDED. 3LNC INPLACE, PT DENIES SOB. NO FURTHER NEEDS, CALL LIGHT IN REACH.
--- NOTE | 2018-10-06 06:45 | NUR ---
pt slept for most of night, pain controlled with scheduled pain medications. vss, tele#6, irregular. pt on ra, 3lnc. pt wheelchair bound, 1-2pa. bt active. pt uses call light approperiately.
--- NOTE | 2018-10-06 07:05 | NUR ---
BEDSIDE HANDOFF REPORT RECEIVED FROM BILINGUAL SCHOOL PSYCHOLOGIST RN. PT RESTING IN BED. PT DENIES NEEDS AT THIS TIME.
--- NOTE | 2018-10-06 08:16 | NUR ---
PT RESTING ROBERTO BED, PT REFUSED TO GET TO CHAIR FOR BREAKFAST, WANTS TO WAIT FOR LUNCH OR P.T. PT ON 3L NC, O2 SATS 93%, LUNG SOUNDS WITH CRACKLES THROUGHOUT. PT WITH PAIN TO LEFT SHOULDER, 01/13, SCHEDULED TYLENOL AND LIDOCAINE PATCH. IV WITH INFLAMMATION, DC'D. PT WITH CMS INTACT, WITHOUT EDEMA, PULSES PALPABLE. PT ON TELE #6, IRREGULAR. PT DENIES NAUSEA, BOWEL TONES ACTIVE, TOLERATING CARDIAC DIET. PT DENIES OTHER NEEDS AT THIS TIME.
--- NOTE | 2018-10-06 09:21 | NUR ---
PATIENT SITTING UP IN BED WATCHING TV. FRESH WATER GIVEN. CALL LIGHT IN REACH. NO FURTHER NEEDS AT THIS TIME.
[2018-10-06] MEDS ORDERED: LIDODERM1 EACH TD (09:43)
[2018-10-06] MEDS ORDERED: OXYCODONE HCL5 MG PO (09:43)
[2018-10-06] MEDS ORDERED: METOPROLOL TART25 MG PO (09:43)
[2018-10-06] MEDS ORDERED: TYLENOL EXTRA500 MG PO (09:43)
[2018-10-06] MEDS ORDERED: MAG-OXIDE400 MG PO (09:53)
--- NOTE | 2018-10-06 10:20 | NUR ---
PT RESTING IN BED. PT STATES PAIN IS FINE AT THIS TIME, PAINFUL WHEN GETTING TO COMMODE. PT DENIES OTHER NEEDS AT THIS TIME.
--- NOTE | 2018-10-06 14:20 | NUR ---
DISCHARGE INSTRUCTIONS COMPLETED WITH PT AND SON. MEDICATIONS REVIEWED. PT DRESSED, BELONGINGS RETURNED. REPORT CALLED TO RANDAL DOSS AT [facility]. PT ESCORTED TO LOBBY WITH NURSE AIDE.
== END 2018-10-06 14:10 | disposition home or self-care (01) | DRG 309 ==
LOC: ED 16:42 → CCU 16:43 → MS 10-03 10:15
PROVIDERS: ADMIT Internal Medicine
DX: I49.5 Sick sinus syndrome (principal); N17.9 Acute kidney failure, unspecified; N39.0 Urinary tract infection, site not specified; J96.11 Chronic respiratory failure with hypoxia; I50.32 Chronic diastolic (congestive) heart failure; R00.1 Bradycardia, unspecified; E86.0 Dehydration; E83.42 Hypomagnesemia; I48.2 Chronic atrial fibrillation; J44.9 Chronic obstructive pulmonary disease, unspecified; M54.9 Dorsalgia, unspecified; G89.29 Other chronic pain; I95.9 Hypotension, unspecified; J98.6 Disorders of diaphragm; S49.92XA Unspecified injury of left shoulder and upper arm, initial encounter; W18.30XA Fall on same level, unspecified, initial encounter; Y92.099 Unspecified place in other non-institutional residence as the place of occurrence of the external cause; Z99.81 Dependence on supplemental oxygen; Z88.5 Allergy status to narcotic agent; Z66 Do not resuscitate; Z79.02 Long term (current) use of antithrombotics/antiplatelets; Z79.82 Long term (current) use of aspirin; Z79.899 Other long term (current) drug therapy
CPT/HCPCS: 36415; 73030; 80048; 80053; 80162; 81001; 83540; 83605; 83735; 83880; 84466; 84484; 85025; 85610; 87040; 87088; 93005; 93010; 93306; 94640; 96360; 96361; 97110; 97116; 97162; 99284-25; J0696; J1160; J1940; J3475; J7030; J7040; J7060

== ENCOUNTER 2019-12-28 19:44 | Emergency (ER) | payer MEDICARE ==
[~2019-12-28] VITALS: Ht 182.9 cm; Wt 64.0 kg
[~2019-12-28 19:44] MED LIST changes: +AMPICILLIN TRI500 MG PO; +ANORO ELLIPTA1 EACH INH; +ELIQUIS2.5 MG PO; +FERROUS GLUCON324 M1 PO; +HYDROCODON-ACE1 EA10 PO; +LIDODERM1 EACH TD; +METOPROLOL TART25 MG PO; +MYRBETRIQ50 MG PO; +NITROFURANTOIN100 M1 PO; +TORSEMIDE5 MG PO
--- OUTSIDE RECORDS SUMMARY | 2019-12-28 19:46 | XMS ---
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 Care History Medical/Surgical 03/30/2018 [facility] - Patient is currently established with [facility]. If patient is seen in the ED during business hours. Please contact CHWs at [facility]. Care Recommendation: This patient has had 5 [...] care. E.D. VISIT COUNT (12 MO.) 1 ROJELIO Zamora TOTAL 1 NOTE: Visits indicate total known visits. ED/UCC VISIT TRACKING (12 MO.) 12/28/2019 19:44 ROJELIO Rivera [place] TYPE: Emergency COMPLAINT: - GLF INPATIENT VISIT TRACKING (12 MO.) No inpatient visits to display in this time frame [email or web address]
== END 2019-12-28 21:48 | disposition home or self-care (01) ==
LOC: ED 19:44
PROC: 0HQ3XZZ Repair Left Ear Skin, External Approach (ICD-10-PCS; principal; 2019-12-28)
DX: S01.312A Laceration without foreign body of left ear, initial encounter (principal); S61.512A Laceration without foreign body of left wrist, initial encounter; S41.112A Laceration without foreign body of left upper arm, initial encounter; J44.9 Chronic obstructive pulmonary disease, unspecified; I50.9 Heart failure, unspecified; Z23 Encounter for immunization; I48.91 Unspecified atrial fibrillation; Z87.891 Personal history of nicotine dependence; Z88.8 Allergy status to other drugs, medicaments and biological substances; Z79.899 Other long term (current) drug therapy; Z79.82 Long term (current) use of aspirin; Z79.01 Long term (current) use of anticoagulants; W18.30XA Fall on same level, unspecified, initial encounter
CPT/HCPCS: 12014; 90471; 90714; 99283-25

== ENCOUNTER 2020-02-19 10:43 | Emergency (ER) | payer MEDICARE ==
[~2020-02-19] VITALS: Ht 182.9 cm; Wt 64.0 kg
--- OUTSIDE RECORDS SUMMARY | 2020-02-19 11:00 | XMS ---
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 Care History Medical/Surgical 12/30/2019 [facility] Patient will contact Dr. Jones if follow up needed. 03/30/2018 [facility] - Patient is currently established with [facility]. If patient is seen in the ED during business hours. Please contact CHWs at [facility]. Care Recommendation: This patient has had [...] providing care. E.D. VISIT COUNT (12 MO.) 2 ROJELIO Zamora TOTAL 2 NOTE: Visits indicate total known visits. ED/UCC VISIT TRACKING (12 MO.) 02/19/2020 10:44 ROJELIO Rivera [place] TYPE: Emergency COMPLAINT: - FALL 12/28/2019 19:[address] [facility] [place] TYPE: Emergency COMPLAINT: - GLF DIAGNOSES: - Chronic obstructive pulmonary disease, unspecified - Personal history of nicotine dependence - Other residential (current) drug therapy - Encounter for immunization - Heart failure, unspecified - intermediate frame tender (current) use of aspirin - Laceration without foreign body of left upper arm, initial en - Allergy status to other drugs, medicaments and biological sub - Fall on same level, unspecified, initial encounter - Laceration without foreign body of left ear, initial encounte - intermediate frame tender (current) use of anticoagulants - Laceration without foreign body of left wrist, initial encoun - Unspecified atrial fibrillation INPATIENT VISIT TRACKING (12 MO.) No inpatient visits to display in this time frame [id number]
== END 2020-02-19 15:30 | disposition home or self-care (01) ==
LOC: ED 10:43
DX: Z04.3 Encounter for examination and observation following other accident (principal); J44.9 Chronic obstructive pulmonary disease, unspecified; I50.9 Heart failure, unspecified; I48.91 Unspecified atrial fibrillation; Z87.891 Personal history of nicotine dependence; Z79.899 Other long term (current) drug therapy
CPT/HCPCS: 70450; 99284-25

== ENCOUNTER 2020-02-22 18:59 | Inpatient (IN) | payer MEDICARE, OTHER ==
[~2020-02-22] VITALS: Ht 162.6 cm; Wt 61.7 kg
--- OUTSIDE RECORDS SUMMARY | ~2020-02-22 | XMS | Encounter Summary ---
Demographics + + + | Address | [address] | | | [place] [address] | + + + | Home Phone | | + + + | Preferred Language | Unknown | + + + | Marital Status | | + + + | Restoration Affiliation | 1077 | + + + | Race | White | + + + | Ethnic Group | Not or | + + + Author + + + | Author | [facility] | | | and [place] | + + + | Organization | [facility] | | | and [place] | + + + | Address | Unknown | + + + | Phone | Unavailable | + + + Support + + +---------+ + | Name | Relationship | Address | Phone | + + +---------+ + | Blayne Casarez | ECON | Unknown | | + + +---------+ + | Dora Casarez (Daughter | ECON | Unknown | | | in [facility]) | | | | + + +---------+ + Care Team Providers + +------+ + | Care Architecture Department Chair Name | Role | Phone | + +------+ + PCP | Unavailable | + +------+ + Encounter Details +--------+ + + + + | Date | Type | Department | Care Team | Description | +--------+ + + + + | 12/01/ | Hospital | [facility] | Qiana, | AMI NOS, Unspecified | | 2006 - | Encounter | [facility] | MD Annalee | ([facility]) | | | | CARE FLOOR [address] | [address] [place] | | | 12/03/ | | [address] | [address] [place], [place] | | | 2006 | | [place], [place] | [address] | | | | | [address] | [phone] | | | | | [phone] | | | +--------+ + + + + Social History + +-------+ +--------+------+ | Tobacco Use | Types | Packs/Day | Years | Date | | | | | Used | | + +-------+ +--------+------+ | Never Assessed | | | | | + +-------+ +--------+------+ + + + | Sex Assigned at | Date Recorded | | | | + + + | Not on file | | + + + documented as of this encounter Plan of Treatment +--------+---------+ + + + | Date | Type | Specialty | Care Team | Description | +--------+---------+ + + + | 06/22/ | Office | Cardiology | Jody Lebron | | | 2019 | Visit | | [address] | | | | | | [address] | | | | | | [place] [address] | | | | | | [phone] | | | | | | | | +--------+---------+ + + + documented as of this encounter Visit Diagnoses + + | Diagnosis | + + | Acute myocardial infarction, unspecified site, episode of care unspecified | + + documented in this encounter"
--- OUTSIDE RECORDS SUMMARY | ~2020-02-22 | XMS | Encounter Summary ---
Demographics + + + | Address | [address] | | | [place] [address] | + + + | Home Phone | | + + + | Preferred Language | Unknown | + + + | Marital Status | | + + + | Confucianist Affiliation | [id number] | + + + | Race | White | + + + | Ethnic Group | Not or | + + + Author + + + | Author | [facility] | | | and [place] | + + + | Organization | [facility] | | | and [...] ECON | Unknown | | | in [facility]) | | | | + + +---------+ + Care Team Providers + +------+ + | Care Central Supply Nurse Name | Role | Phone | + +------+ + | Nalini Jones MD | PCP | | + +------+ + Reason for Visit + + + | Reason | Comments | + + + | Follow-up, Office | 2 month | | Visit | | + + + Encounter Details +--------+---------+ + + + | Date | Type | Department | Care Team | Description | +--------+---------+ + + + | 09/26/ | Office | [facility] | Jody Lebron | Persistent atrial | | 2020 | Visit | [facility]ARDIOLOGY [facility] | [address] | fibrillation (HCC) | | | | [address] | [place]I [address] [address] | (Primary Dx); | | | | [address] | [place] [address] | Chronic diastolic | | | | [place] | [phone] | heart failure (HCC); | | | | [address] | | Coronary artery | | | | [phone] | | disease of [place] | | | | | | artery of [place] | | | | | | 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 | | | | | | (HCC); History of | | | | | | non-ST elevation | | | | | | myocardial | | | | | | infarction (NSTEMI); | | | | | | Moderate mitral | | | | | | regurgitation by | | | | | | prior | | | | | | echocardiogram; | | | | | | Chronic | | | | | | anticoagulation; | | | | | | Essential | | | | | | hypertension; Mixed | | | | | | hyperlipidemia; | | | | | | Other secondary | | | | | | pulmonary | | | | | | hypertension (HCC); | | | | | | Encounter for | | | | | | monitoring diuretic | | | | | | therapy; Chronic | | | | | | respiratory failure | | | | | | with hypoxia, on | | | | | | home O2 therapy | | | | | | (HCC); Stage 3 | | | | | | chronic kidney | | | | | | disease (HCC); | | | | | | Chronic obstructive | | | | | | pulmonary disease, | | | | | | unspecified COPD | | | | | | type (HCC); Former | | | | | | smoker | +--------+---------+ + + + Social History + +-------+ +--------+------+ | Tobacco Use | Types | Packs/Day | Years | Date | | | | | Used | | + +-------+ +--------+------+ | Former Smoker | | 2.5 | | | + +-------+ +--------+------+ + +---+---+---+ | Smokeless Tobacco: | | | | | Former User | | | | + +---+---+---+ + + +---------+ + | Alcohol Use | Drinks/Week | oz/Week | Comments | + + +---------+ + | Yes | 2 Shots of liquor | 2.0 | Twice weekly | + + +---------+ + + + + | Sex Assigned at | Date Recorded | | | | + + + | Not on file | | + + + documented as of this encounter Last Filed Vital Signs + + + + + | Vital Sign | Reading | Time Taken | Comments | + + + + + | Blood Pressure | 96/50 | 09/27/2019 10:29 AM | | | | | PDT | | + + + + + | Pulse | 59 | 09/27/2019 10:29 AM | | | | | PDT | | + + + + + | Temperature | 36.7 C (98.1 F) | 09/27/2019 10:29 AM | | | | | PDT | | + + + + + | Respiratory Rate | - | - | | + + + + + | Oxygen Saturation | 90% | 09/27/2019 10:54 AM | | | | | PDT | | + + + + + | Inhaled Oxygen | - | - | | | Concentration | | | | + + + + + | Weight | 71.5 kg (157 lb 11.2 | 09/27/2019 10:29 AM | | | | oz) | PDT | | + + + + + | Height | 163.8 cm (5' 4.5") | 09/27/2019 10:29 AM | | | | | PDT | | + + + + + | Body Mass Index | 26.65 | 09/27/2019 10:29 AM | | | | | PDT | | + + + + + documented in this encounter Patient Instructions Patient Instructions Jody Lebron FNP - 09/27/2019 10:30 AM PDTYou are stable totita de leon I made no changes to medications See me back in 6 months, and you have an appointment with Dr. Keating in December What is Coronavirus? The Novel Coronavirus 2019 (COVID-19) is a new virus strain that is spread mainly from pers bg-ql-[id number] through respiratory droplets when an infected person coughs or sneezes. Symptom s may appear 2-14 days after exposure. Reported illnesses have ranged from mild symptoms to severe illness and for confirmed cases. Symptoms include: ? Fever ? Cough ? Shortness of breath COVID-19 is most commonly spread from an infected person to others through: ? Respiratory droplets produced by coughing and sneezing. ? Close personal contact, like shaking hands. ? Touching a surface with the virus on it and then touching your mouth, nose, or eyes befor e washing your hands. How to protect yourself ? Stay home when you are sick. ? Avoid touching your eyes, nose and mouth. ? Wash your hands often with soap and water for at least 20 seconds. This is especially imp ortant after blowing your nose, coughing, or sneezing; going to the bathroom; and before eat ing or preparing food. ? If soap and water are not available, use an alcohol-based hand air cargo specialist supervisor with at least 60 % alcohol covering all surfaces of your hands and rubbing them together until they feel dry. ? Cover your cough or sneeze with a tissue, then throw the tissue in the trash. (Putting a tissue on a table contaminates the surface of the table with germs.) ? Routinely disinfect frequently touched objects and surfaces, using a cleaning spray or wi pe. ? Avoid travel to high-risk countries. We are discouraging non-essential travel to or throu gh any of the countries for which the CDC has issued a level 2 or 3 travel health notice. (h ttps://www.cdc.gov/coronavirus/2019-ncov/travelers/index.html) The Centers for Disease Control and Prevention (CDC) does not recommend that people who are well wear a facemask to protect themselves from respiratory illnesses, including COVID-19. You should only wear a mask if a healthcare professional recommends it. A facemask should be used by people who have COVID-19 and are showing symptoms of infection like coughing, sneez ing or fever. This is to protect others from the risk of getting infected. What to do if you are sick ? Stay home if you are sick or believe you have been exposed to the virus, even if you are not showing any symptoms. ? Separate yourself from other people in your home, this is known as home isolation. ? Monitor yourself for fever, coughing and shortness of breath. When you should seek medical evaluation and advice? ? Call 911 if you have a medical emergency. If you have a medical emergency and need to sindhu l 911, notify the power digger operator that you have or think you might have, COVID-19. If possible, put on a facemask before medical help arrives. ? If you are 60 and older, or have underlying conditions such as , heart disease, diabetes, lung disease and weakened immune system, work with your doctor to develop a plan t o determine your health risks to COVID-19 and how to manage symptoms. If you do have symptom s, contact your doctor immediately. ? For worsening symptoms or difficulty breathing, please contact your primary care provider or consider a virtual visit. ? If you do not have a high-risk condition and your symptoms are mild, you do not need to b e evaluated in person and do not need to be tested for COVID-19. (Please see Home Quarantin e and Isolation Instructions below) We ask that you please avoid coming to the emergency department, unless you have a health e mergency and/or you have been advised by a provider to do so. This helps prevent the risk of spreading this disease and further exposure in our community and allows us to dedicate crit ical and limited emergency resources to those who are very sick. Who should be tested? A common question right now is, Why can't I get tested? The answer: Not everyone need s to be tested. People with flu-like symptoms are not being tested for COVID-19 unless they meet certain criteria set by the CDC. The criteria are set by the CDC as a condition of the FDA-approved emergency use authorization, which allows new tests to be used in an emergency situation on high-risk people only. That criteria have widened in the last week to include people who are hospitalized with sym ptoms that are otherwise unexplained. That is in addition to testing people with travel hist ory, and people with contacts to a known case. These criteria may evolve to include more peo ple over time, as this situation is evolving rapidly. Home Quarantine and Isolation Instructions: If you are currently sick with a fever, respiratory symptoms or a virus, you should avoid e xposure to others. If you have possible significant exposure to COVID-19 because of travel o r direct exposure to a known case, the current recommendation is for you to stay home for 7 days (home quarantine) even if you do not develop symptoms or your illness has improved. If you are ill, we recommend avoiding exposure to others (home isolation) until you have been well (without a fever or feeling ill) for 72 hours. Many patients will have a prolonged coug h after they are sick if you are otherwise well, contact your doctor or one of the noted resources to determine if it is safe to return to your usual activities. Guidelines for home quarantine and home isolation include: ? Stay at home and do not have visitors. ? Do not go to another person's home. ? Do not use public transportation. ? Restrict activities outside your home, except for seeking medical care. ? Do not go to work, school or public areas. ? Avoid close contact with household members (stay 10 feet away when possible). ? Cover coughs and sneezes. ? Clean all high touch surfaces every day. ? Use separate sleeping and bathroom/bathing facilities, if feasible. ? Avoid sharing personal household items (dishes, drinking glasses, cups, eating utensils, towels, or bedding) with other people or pets in your home. After using these items, they sh ould be washed thoroughly with soap and water. ? Call ahead before visiting your doctor. This will help the healthcare provider's office t samina steps to keep other people from getting infected or exposed. ? If you have been tested for COVID-19, stay home until your healthcare provider contacts y ou about your test results. Does this mean my family or other people I live with need to self-quarantine? Other members of the household are not required to self-quarantine, unless they have been told by a medical professional to do so. If you develop symptoms and are suspected to have C OVID-19, members of the household will be classified as close contacts and will then need to be in self-quarantine. How is this Virus Treated? Most people with COVID-19 will recover on their own. There is no specific antiviral treatm ent recommended for COVID-19. People with COVID-19 should receive supportive care to help re lieve symptoms. For severe cases, treatment should include care to support vital organ funct ions. Additional Information For up-to-date information about coronavirus and the community public health response, visi t your local public health website. CDC: COVID-19: https://www.cdc.gov/coronavirus/2019-ncov/index.html [place] Coronavirus Advisory: https://www.[place].org/zinkkhmw-hnh-ptiauywn/coron avirus-advisory Virtual Visits Available https://virtual.[facility].org/ documented in this encounter Progress Notes Jody Lebron FNP - 09/27/2019 10:30 AM PDTFormatting of this note might be differe nt from the original. Date of visit: 09/27/2019 Primary Care Physician: Nalini Jones MD CHIEF COMPLAINT: Chief Complaint Patient presents with Follow-up, Office Visit 2 month HISTORY OF PRESENT ILLNESS: Jose Ayala is an 89 year old man who is here today for 2 month follow-up on his heart failure He is with his son Blayne, today , who contributed to history , and is his primary caregive r, though he also lives in assisted living at [facility]. He was previously been a patient of ,and last seen by him 10/16/2017, and also has been seen by heart failure PHYSICIAN OPHTHALMOLOGIST, Cornelia Escudero , last on 01/2018. He has now established care with Dr. Keating , who is his local primary it help desk associate, an d last seen by him in 05/19/2019, and he ordered him a BNP , and made no medication changes. . I saw him last 07/29/2019 when he was doing well on Bisoprolol 5 mg daily controlling A. fib with RVR resolved , and continued Torsemide to 10 mg at 8 am and 2 pm, and ordered and updated BMP. Today, I reviewed all current and previous documentation available to me in electronic medical record and external sources. He has a history of coronary artery disease with prior myocardial infarction, chronic atri al fibrillation, chronic diastolic heart failure,secondary pulmonary hypertension, COPD wit h chronic respiratory failure with hypoxia, treated with 2 liters oxygen 24 hrs daily ,paral yzed right diaphragm, and ongoing back pain related to thoracic compression fractures. He is anticoagulated on Eliquis 2.5 mg twice daily for [id number] VASC score is 5 (CHF, a ge, vasc dis,) . Though previously documented as valvular atrial fibrillation , he has not undergone valve surgery, either repair or replacement, and does not have severe rheumatic mitral stenosis. He was previously hospitalized on November 1405/2018 until December 022017 at [facility] for increa sed dyspnea, edema, and back pain due to acute heart failure and new T12 compression fractur e, and heart failure exacerbation likely secondary to stopping diuretic and fall. He was also hospitalized [facility] on June 10 - June 14, 2018 for acute deco mpensation of chronic diastolic heart failure and iron deficiency anemia as well as exacerba tion of his chronic respiratory failure, and chronic A. fib . He was admitted again to [facility] September 30 - October 04, 2018 after a ground-level f all at home with injury to his left shoulder, predominantly soft tissue, symptomatic bradyca rdia, hypotension, acute kidney injury,in the setting of chronic UTI. He has not been hospitalized since. His current and previous testing and procedures are detailed below He reports today that he continues to feel improved on the increased dose of bisoprolol 5 mg with much less shortness of breath and better activity tolerance, as he can walk 3 la ps around his assisted living and tolerating it well, and also attends daily 15 minute exerc ise He also reports he feels much stronger, and his appetite has improved, and though his w eight is up overall in the last few months, it has been stable at his facility at 153-156 po unds at his facility since I saw him last, and stable in the clinic as well and he appears t o be euvolemic. I think increased weight is due more to better appetite than fluid, as BNP again good at 156 on [facility] . His vital sign record from [facility] documents blood pressure has also been well contro lled as predominantly in the 122-140 mmHg systolic range for the past 2 weeks, and his room air sat's have been 91 to 95%, and his heart rate has been 64 to 75 bpm and recorded as reg ular at his facility He still as ongoing HERNANDEZ with chronic obstructive and restrictive lung disease, but stable with no recent exacerbations. He has not had any hospital admissions since seen by Dr. Lloyd on November 11, which is also the longest he has gone without being admitted to the emergency room or hospital. He continues to look much improved today, and is still using a walker to ambulate instead of a wheelchair, and his son reports he seems much stronger and less short of breath, thoug h still using continuous oxygen. He denies any chest pain, focal edema, dizziness or lightheadedness. He also denies any s igns or symptoms of stroke or TIA, though continues to bruise easily. He is anticoagulated on Eliquis 2.5 mg twice daily and no longer takes any NSAIDs., and de nies any bleeding We had previously discussed that he wishes to remain DNR/DNI. His bradycardia in the hospital had resolved by decreasing his beta-nini and stopping di goxin, but they had discussed the possibility of a pacemaker. He reports he would proceed w ith a pacemaker if indicated. I had previously discussed with him that no current indication for a pacemaker as he had been maintaining sinus rhythm until today in the 60's without any bradycardia, or pauses, o r blocks.. He and his son report he will be seeing Dr. Jones again in October REVIEW OF SYSTEMS: Negative except for pertinent items noted in HPI. Constitutional: reports improved energy, activity tolerance, and appetite.Denies unexplain ed weight loss. Appetite is good. Weight is Decreased 12 lbs since 11/14/2017 when weighed 162 lbs, dry weight close to 145 ?euvolemic at 146 lbs Denies night sweats fevers or ch ills HENT: Denies nosebleeds. Moderate hearing loss. Denies dysphagia Eyes: Denies visual disturbance or double vision. Respiratory/Sleep::Ongoing HERNANDEZ, Use continuous oxygen. 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 Denies hemoptysis or excessive sputum production. Denies snoring, PND. Cardiovascular: Resolved LE edema. Resolved central edema. Denies chest pain, palpitatio ns .Denies history of rheumatic fever. Denies claudication . Gastrointestinal: HX PUD, history of GERD. Hx hepatitis ,prone to constipation . Hx Knee s urgery Denies nausea, vomiting, abdominal pain and blood in stool. Genitourinary: Denies hematuria. Musculoskeletal: pain to left upper shoulder and neck since ground level fall 09/30/2018 t horacic compression fractures, DJD, uses wheel chair , and now walker.Kyphoscoliosis, freque nt falls denies myalgias,. Skin: Denies color change. Denies rash or lesions. Skin dry , thin, and fragile. Neurological: Denies history of stroke/Transient ischemic attack.Denies history of seizures . Denies dizziness, syncope and numbness. Hematological/Oncology . Bruises easily. Denies bleeding Denies history of cancer Endocrine: Denies diabetes or thyroid disease. Denies excessive thirst or hunger. Psychiatric/Behavioral: denies any history of depression or anxiety or other psychiatric il lness. Vaccines: Current on 04/2019 flu vaccine. Current on post 67 pneumonia vaccine. Habits/Social : history of smoking, quit 09/1999. EtOH use. seldom now, previously 2 [facility] ons per day, . Drinks 1 servings of caffeine daily . Denies recreational or illicit drug use. Exercises with occasional walking , limited by pain from compression fractures, and O2 and tolerates. Lives in [place] [facility] at [facility]. Son lives nearby. Use d to live in [place] [facility] Medications Prior to Visit Medication Sig Dispense Refill acetaminophen (TYLENOL) 500 mg tablet Take 500 mg by mouth every 6 hours as needed. albuterol-ipratropium (COMBIVENT RESPIMAT) 100-20 mcg/puff inhaler Inhale 1 puff into t he lungs every 4 hours as needed. apixaban (ELIQUIS) 2.5 mg tablet Take 1 tablet by mouth 2 (two) times daily. aspirin 81 MG tablet Take 81 mg by mouth daily. atorvaSTATin (LIPITOR) 10 mg tablet Take 1 tablet by mouth every morning. bisoprolol (ZEBETA) 5 mg tablet Take 1 tablet by mouth At Bedtime. Hold for HR < 50, or SBP< 100 mmhg 30 tablet 11 Calcium Carbonate-Vitamin D (OYST-SINDHU-D 500 PO) Take 1 tablet by mouth qhs Coenzyme Q10 (COQ10) 200 MG CAPS Take 200 mg by mouth Daily. DEBROX 6.5 % otic solution Place 1 drop into both ears 2 times daily. ferrous gluconate (FERGON) 324 (38 Fe) MG tablet Take 324 mg by mouth daily with breakf ast. MAGNESIUM PO Take 400 mg by mouth daily. mirabegron (MYRBETRIQ) 50 mg ER tablet Take 1 tablet by mouth daily. Multiple Vitamins-Minerals (CENTRUM SILVER) TABS one by mouth daily (Patient taking dif ferently: 1 tablet.) Multiple Vitamins-Minerals (PRESERVISION AREDS 2 PO) Take 1 capsule by mouth daily. spironolactone (ALDACTONE) 25 mg tablet Take 25 mg by mouth twice daily tamsulosin (FLOMAX) 0.4 mg CAPS Take 0.8 mg by mouth nightly. torsemide (DEMADEX) 10 mg tablet Take 1 tablet by mouth 2 times daily. At 8 am and 2pm 60 tablet 11 umeclidinium-vilanterol (ANORO ELLIPTA) 62.5-25 mcg/puff inhaler Inhale 1 puff into the lungs daily. UNABLE TO FIND Start oxygen on exertion/ambulation at __ LPM via nasal cannula, and at night at __ LPM. Pls evaluate for conserving device. Pls provide home concentrator and tomasa ble oxygen system. No facility-administered medications prior to visit. PHYSICAL EXAM: Wt Readings from Last 3 Encounters: 09/27/19 71.5 kg (157 lb 11.2 oz) 07/29/19 69.7 kg (153 lb 9.6 oz) 06/24/19 69.3 kg (152 lb 11.2 oz) Temp Readings from Last 3 Encounters: 09/27/19 36.7 C (98.1 F) BP Readings from Last 3 Encounters: 09/27/19 96/50 07/29/19 98/52 06/24/19 110/58 Pulse Readings from Last 3 Encounters: 09/27/19 59 07/29/19 63 06/24/19 123 Vital signs: 12/24/2018 Wt:143 Lbs. BP:110/56 . HR. 62 Vital signs: 11/11/2018 Wt: 136 Lbs. BP: 96/54 . HR. 55 GENERAL: Frail elderly man, in no distress. Appears approximately stated age. HEENT: Normocephalic, atraumatic. EYES: PERRL, EOM normal. MOUTH: Oral mucosae moist, dentures, no lesions noted NECK: No JVD, lymphadenopathy, thyromegaly, bruits. Carotid pulses are 2+ bilaterally LUNGS/CHEST: Kyphoscoliosis, diminished breath sounds throughout, continuous oxygen. Margot r bilaterally, with no rhonchi or wheezing noted, respirations unlabored HEART: Nondisplaced PMI, irregularly irregular rhythm with fast rate, S1, S2 normal. 2/6 LLSB Murmurs, No rubs or gallops noted. ABDOMEN: Soft, nontender, no organomegaly, masses or bruits. Bowel sounds are normal in a ll 4 quadrants. The abdominal aortic pulsation is not palpable. EXTREMITIES: No pedal edema ,radial pulses 2+ bilaterally. Femoral pulses are 2+ bilat erally without bruits. DP and PT pulses are 2+ bilaterally. clubbing to nail beds, , SKIN: Warm and dry, capillary refill is normal, no lesions. Skin tear to right forearm co flash with a dressing. NEUROLOGIC: Awake, alert and oriented x 3. No focal motor or sensory deficits. PSYCHIATRIC: Appropriate, affect appears normal DATA: Blood tests: Lab Results Component Value Date WBC 10.04 11/14/2017 RBC 4.96 11/14/2017 HGB 10.4 (L) 11/14/2017 Lab Results Component Value Date NA 135 06/25/2018 K 4.7 06/25/2018 CL 88 (A) 06/25/2018 CO2 38 (A) 06/25/2018 ANIONGAP 13.7 06/25/2018 GLUF 117 (A) 06/25/2018 BUN 20 06/25/2018 EGFR 90 06/25/2018 Lab Results Component Value Date GLUF 117 (A) 06/25/2018 Lab Results Component Value Date BNP 194 (H) 11/11/2017 No results found for: TOTEPI CARDIAC PROCEDURES/IMAGING Last angiogram 12/01/2006:Severe coronary arteriosclerosis, with complete occlusion of o btuse marginal branch/ramus intermedius branch, and complete occlusion RCA. Oifp-xo-lllokiuj involvement of the rest of the system.Good left ventricular function, with inferobasal hypo kinesia.Normal LVEDP. Attempted and failed angioplasty of the obtuse marginal branch/ramus intermedius branch. Attempt at angioplasty of the right coronary artery. Last stress test:( Nuclear Treadmill) 08/22/2016: No exercise induced symptoms, no change i n underlying arrhythmia, EKG suggestive of ischemia. SPECT images show small inferior defec t that worsens her breast, no ischemia. Normal LV systolic function. Resting heart rate 79 bpm, resting blood pressure 104/78. EKG atrial fib is 73 bpm, old septal IL. Nonspecific ST and T-wave abnormalities. Stress heart rate 148 bpm, stress blood pressure 139/69. METS 5.10. 108 percent MPHR. No change in underlying arrhythmia on EKG, ST segment depression suggestive of ischemia area. Rest EF 65 percent, stress EF 68 percent. VASCULAR TESTING AND PROCEDURES-none ECHO Last echo: 10/05/2018: ([facility]) atrial fibrillation. Technically adequate study. Sub-supraster nal and subcostal windows not visualized. EF 55-60%, LV normal in size and wall thickness. Moderate RV E, RV systolic function normal. Left atrium markedly enlarged. Right atrium m oderately enlarged. Aortic valve trileaflet, mild AI, no aortic stenosis, valve is trileafl et, mildly thickened, aortic pressure by halftime 467 ms. Normal-appearing mitral valve, mo derate MR. Tricuspid valve normal, mild TR. Moderate pulmonary hypertension, RVSP 52 mmHg. Pulmonic valve normal, trace PI, no pericardial or pleural effusion. IVC not well visuali zed. Aortic root dilated limited to sinus of Valsalva, 41 mm. Mobile intra-arterial septum Echo: 11/12/2017:([facility]) . Atrial fib. EF 55-60 percent. LV normal in size with mild left ventricular hypertrophy. Unable to assess diastolic function. Severe RVE, >4.1 cm. Marked ly dilated LA. Markedly enlarged RA. Aortic valve trileaflet, minimally thickened, trileaf let, mild aortic sclerosis without stenosis, mild to moderate AI, no aortic stenosis. Radha l valve normal, moderate MR, mild MAC. Tricuspid valve normal, moderate TR. Mild to modera te pulmonary hypertension, RVSP 50.90 mmHg. Trace SD. No pericardial effusion. IVC WNL, C [employer] normal. 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 Technically adequate study. EF 60-65 percent. LV normal in size, moderate left ventricular hypertrophy. No assessment of diastolic function. Severe R VE, >4.1 cm. LA markedly enlarged, RA markedly enlarged. Aortic valve trileaflet, mild AI, no aortic stenosis. Mitral valve normal, moderate MR. Tricuspid valve normal, moderate TR . Moderate pulmonary hypertension, RVSP 50.47 mmHg. Pulmonic valve normal, no pericardial effusion. IVC WNL, CVP 5-10. Aortic root dilated 4.0 cm Echo: 08/22/2016: Atrial fib. Technically adequate study. EF 55-60 percent. LV normal in size, mild left ventricular hypertrophy, no regional wall motion abnormalities. Moderate, g rade 2 diastolic dysfunction. Moderate RVE, 3.8-4.1. Both atria markedly enlarged. Aortic valve trileaflet, mild AI, no aortic stenosis. Mitral valve normal, mild MR. Mild to mode rate TR. Moderate pulmonary hypertension, RVSP 51.16 mmHg. Trace PI. No pericardial effus ion. IVC dilated greater than 2.5 cm, CVP 10 mmHg. Aortic root, ascending aorta are dilate d up to 42 mm. No mass, no clot EKG/EVENT MONITOR EK08/01/2016: Atrial fibrillation, with controlled ventricular response. Rate 86 bpm, QR S 104 ms, QTC [address]-T wave abnormalities in inferolateral leads, tracing per sonally reviewed by sc EK11/11/2017: Atrial fib with RVR, rate 1 26 bpm, QRS 90 ms, QTC 443 ms him a tracing perc ent reviewed by sc EK03/28/2018: Atrial fibrillation with slow ventricular response, rate 47 bpm, QRS 102 ms , QTC 332 ms , tracing personally reviewed by sc EK05/18/2018: Atrial fib with borderline controlled rate. Rate 92 bpm, QRS 92 ms, QTC 4 30 ms, wondering baseline, tracing personally reviewed by sc E K10/19/2018: NS rhythm, PAC's, A. fib at 85 bpm, SD 236 ms, QRS 94 ms, QTC 430 ms jose luis ng personally reviewed by sc, also had atrial fib with controlled ventricular response at 62 bpm captured when EKG tracing allowed to run EK06/24/2019:(bisoprolol 2.5 mg) Atrial fib with RVR, occasional PVC. Rate 123 bpm, QRS 90 ms, QTC 449 ms, tracing personally reviewed by sc EK07/29/2019:( bisoprolol 5 mg ) Sinus rhythm with occasional PAC. Rate 63 bpm, SD 178 ms, QRS 98 ms, QTC 405 ms, tracing personally reviewed by me, and compared to EKG performed on June 24, sinus rhythm has replaced atrial fib, and rate now well controlled LABS Labs: 03/31/2018: BMP: Sodium 139, potassium 3.9, chloride 95, glucose 96, BUN 20, creatinin e 0.69, GFR 109 Labs: 03/27/2018:( [facility]) CMP: Sodium 134, potassium 5.7, chloride 98, BUN 31, creatinine 0.99, GFR 72, glucose 122, magnesium 2, total bilirubin 0.4, AST 24, ALT 18, alk phos 112, t roponin T 0.124, BNP 1600, albumin 3.1, INR 1.6. CBC: WBC 8.5, hemoglobin 10.6, hematocrit 34.3, platelets 209, digoxin 1.52 Labs: 05/14/2018: CMP: Sodium 144, potassium 3.8, chloride 97, glucose 117, BUN 28, creatini ne 0.75, GFR 99, AST 77, ALT 60, alk phos 193, total bilirubin 0.8,albumin 3.5. BNP 371. C BC: WBC 7.1, hemoglobin 9.3, hematocrit 32.4, platelets 196 Labs: 07/03/2018: Iron panel: Iron 26.69, TIBC 476, percent sat 5.6, ferritin 83.2 U IBC 44 9, transferrin 39.91. CMP: Sodium 138, potassium 4.8, chloride 92, CO2 32, glucose 105, BUN 19, creatinine 0.79, GFR 93, AST 26, ALT 24, alk phos 202, total bili 0.7, albumin 3.7. Vi tamin B12 484, folate 10.6. CBC: WBC 7.6, RBC 5.27, hemoglobin 11.9, hematocrit 40.8, plate lets 298. Labs: 09/30/2018: [facility] ER: CMP: Sodium 131, potassium 4.9, chloride 93, CO2 29, B UN 44, creatinine 2.77, GFR 22, glucose 140, total bili 0.6, AST 28, ALT 33, alk phos 114, t roponin T 0.152, albumin 3.5. CBC: WBC 9.7, RBC 4.78, hemoglobin 13.8, hematocrit 42.7, simona telets 239. Digoxin 1.6 Labs: 10/01/2018: Iron panel: Iron 45.61, TIBC 314, percent sat 14.5%, transferrin 224 BNP 10/04/2018: 205 Labs:: 10/06/2018: BMP: Sodium 136, potassium 4.2, chloride 98, BUN 20, creatinine 0.66, GFR 114, glucose 99, magnesium 2.1, digoxin 0.65 Labs: 11/05/2018 CMP: Sodium 144, potassium 4.6, chloride 100, glucose 107, BUN 10, creatinin e 0.76, GFR 97, AST 20, ALT 23, alk phos 118, total bili 0.6, albumin 3.5. CBC: WBC 6.2, RB C 4.27, hemoglobin 12.7, hematocrit 39.2, platelets 224. Labs: 03/25/2019: CMP: Sodium 138, potassium 5.3, chloride 95, CO2 34, glucose 73, BUN 29, c reatinine 1.04, GFR 68, AST 25, ALT 29, alk phos 114, total bili 0.6, albumin 4. CBC: WBC 6 .8, RBC 4.56, hemoglobin 14.5, hematocrit 44.6, platelets 221 Labs: 04/30/2019: CMP: Sodium 138, potassium 4.8, chloride 94, glucose 111, BUN 30, creatin ine 1.06, AST 42, ALT 53, alk phos 118, total bili 0.5, GFR 66, albumin 4.1. BNP 152. Labs: 05/12/2019: Lipids: ( atorvastatin 10 mg) cholesterol 136, triglycerides 90, HDL 52.8 , LDL 65. CMP: Sodium 137, potassium 5, chloride 96, glucose 95, BUN 34, creatinine 1.16, G FR 60, AST 35, ALT 52, alk phos 121, total bili 0.6, albumin 4 ferritin: 89.6. BNP 156. CB C: WBC 7.2, RBC 4.43, hemoglobin 14.2, hematocrit 43.6, platelets 225 Labs: 08/05/2018 labs:CMP: Sodium 138, potassium 4.9, chloride 96, CO2 37, glucose 97, BUN 33, creatinine 1.03, GFR 68, calcium 9.8, AST 29, ALT 31, alk phos 112, total bili 0.5, albu min 4.2. Magnesium: 2.4. CBC: WBC 7, RBC 4.8, hemoglobin 15.1, hematocrit 46.3, platelets 242 ASSESSMENT & PLAN: He was here today with his son for 2 month follow-up on for A. fib and heart failure He has problems as detailed below with significant co morbidities, and is a DNR/DNI. As discussed in HPI, overall he continues to feel well, though blood pressure again a l ittle low in the clinic today, his systolic blood pressure at his facility has been good as discussed in HPI. He also symptomatically feels much improved, and has increased activity tolerance, and st rength, and looked very bright and alert today with good color, and appears euvolemic today . His labs performed in July are detailed above, and CMP continues to show good renal fu nction, with normal electrolytes, , magnesium therapeutic, and CBC normal , and I reviewed w ith him and his son in detail. I made no changes to his cardiac medications today, and he should continue bisoprolol 5 mg qhs,aspirin 81 mg daily for coronary artery disease, atorvastatin 10 mg nightly for hype rlipidemia, spironolactone 25 mg twice daily for heart failure, and torsemide 10 mg at 8 AM and 2 PM for heart failure, and Eliquis 2.5 mg twice daily for stroke prevention. He should be on Tylenol only for pain, due to decreased renal function and increased risk of bleeding with NSAIDs and chronic anticoagulation. I have encouraged him to continue with his daily physical therapy with gentle daily walki ng of 15-30 minutes daily which he has been progressing well with, and he is now on the wait ing list to attend Cardiac Rehab as ordered by Dr. Keating., but cardiac rehab now closed d ue to Covid-19 pandemic restrictions. He will see Dr. Lloyd 12/15/2019, and I have not ordered an updated echo for that visit , as non urgent testing on hold with pandemic, and he is aware his visit may be rescheduled , and done telephonically due to pandemic. I will see him back in 6 months 1. Persistent atrial fibrillation 2. Chronic diastolic heart failure (HCC) 3. 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 History of non-ST elevation myocardial infarction (NSTEMI) 5. Moderate mitral regurgitation by prior echocardiogram 6. Chronic anticoagulation 7. Essential hypertension 8. Mixed hyperlipidemia 9. Other secondary pulmonary hypertension (HCC) 10. Encounter for monitoring diuretic therapy 11. Chronic respiratory failure with hypoxia, on home O2 therapy (HCC) 12. Stage 3 chronic kidney disease (HCC) 13. Chronic obstructive pulmonary disease, unspecified COPD type (HCC) 14. Former smoker No orders of the defined types were placed in this encounter. The following portions of the patient's history were personally reviewed by me and updated as appropriate: EKG tracings, other specialty provider and PCP notes,any Hospital admission and discharge summaries, any ER records , current and previous cardiac testing and procedure reports and d korina, medication and vital sign record from [facility] personally reviewed by me. Allergies, current medications.labs Family history, past medical history, past social history, past surgical history. Problem list. This encounter was dictated with voice recognition software and may contain inadvertent rec ognition errors. Portions of this chart may have been copied from previous notes for continuity of care purp ose Taylor [facility] Cardiology 09/27/2019 docume nted in this encounter Plan of Treatment +--------+---------+ + + + | Date | Type | Specialty | Care Team | Description | +--------+---------+ + + + | 06/22/ | Office | Cardiology | Jody Lebron | | 2019 | Visit | | [address] | | | | | | [address] | | | | | | [place] [address] | | | | | | [phone] | | | | | | | | +--------+---------+ + + + documented as of this encounter Visit Diagnoses + + | Diagnosis | + + | Persistent atrial fibrillation (HCC) - Primary Atrial fibrillation | + + | Chronic diastolic heart failure (HCC) Chronic diastolic heart failure | + + | Coronary artery disease of [place] artery of [place] heart with stable angina pectoris | | (HCC) | + + | History of non-ST elevation myocardial infarction (NSTEMI) Old myocardial infarction | + + | Moderate mitral regurgitation by prior echocardiogram Mitral valve disorders | + + | Chronic anticoagulation Encounter for long-term (current) use of anticoagulants | + + | Essential hypertension Unspecified essential hypertension | + + | Mixed hyperlipidemia | + + | Other secondary pulmonary hypertension (HCC) | + + | Encounter for monitoring diuretic therapy Encounter for therapeutic drug monitoring | + + | Chronic respiratory failure with hypoxia, on home O2 therapy (HCC) | + + | Stage 3 chronic kidney disease (HCC) | + + | Chronic obstructive pulmonary disease, unspecified COPD type (HCC) | + + | Former smoker Personal history of tobacco use, presenting hazards to health | + + documented in this encounter
--- OUTSIDE RECORDS SUMMARY | ~2020-02-22 | XMS | Encounter Summary ---
Demographics + + + | Address | [address] | | | [place] [address] | + + + | Home Phone | | + + + | Preferred Language | Unknown | + + + | Marital Status | | + + + | Druze Affiliation | [id number] | + + + | Race | White | + + + | Ethnic Group | Not or | + + + Author + + + | Author | [facility] | | | and [place] | + + + | Organization | [facility] | | | [...] ECON | Unknown | | | in [facility]) | | | | + + +---------+ + Care Team Providers + +------+ + | Care Vehicle Operator Name | Role | Phone | + +------+ + PCP | Unavailable | + +------+ + Encounter Details +--------+ + + + + | Date | Type | Department | Care Team | Description | +--------+ + + + + | 10/25/ | Hospital | [facility] [place] [place] [facility] | Conversion | Pain | | 2018 | Encounter | CONVERSION [address] | Transaction, | | | | | [address] | Provider Unknown | | | | | [place], [place] | [phone] | | | | | [address] | | | | | | [phone] | | | +--------+ + + + [...] + + documented as of this encounter Medications at Time of Discharge + + + +---------+ + + | Medication | Sig | Dispensed | Refills | Start | End Date | | | | | | Date | | + + + +---------+ + + | Coenzyme Q10 | Take 200 mg by mouth | | 0 | 10/17/19 | | | (COQ10) 200 MG CAPS | Daily. | | | 12 | | + + + +---------+ + + | Multiple | one by mouth daily | | 0 | 10/17/19 | | | Vitamins-Minerals | | | | 12 | | | (CENTRUM SILVER) | | | | | | | TABS | | | | | | + + + +---------+ + + | aspirin (ASPIRIN | Take 81 mg by mouth | | 0 | 10/17/19 | | | ADULT LOW STRENGTH) | Daily. | | | 12 | 9 | | 81 mg chewable | | | | | | | tablet | | | | | | + + + +---------+ + + | | one-half tablet by | | 0 | 11/13/19 | | | bisoprolol-hydrochlo | mouth daily | | | 12 | 9 | | rothiazide (ZIAC) | | | | | | | 10-6.25 mg per | | | | | | | tablet | | | | | | + + + +---------+ + + | digoxin (LANOXIN) | Take 125 mcg by | | 0 | 10/17/19 | | | 125 mcg tablet | mouth Daily. | | | 12 | 9 | + + + +---------+ + + | doxazosin | Take 2 mg by mouth 2 | | 0 | 10/17/19 | | | (CARDURA) 2 MG | times daily. | | | 12 | 9 | | tablet | | | | | | + + + +---------+ + + | | one-half tablet by | | 0 | 11/13/19 | | | hydrochlorothiazide | mouth daily | | | 12 | 9 | | 25 mg tablet | | | | | | + + + +---------+ + + | lisinopril | Take 10 mg by mouth | | 0 | 10/17/19 | | | (PRINIVIL, ZESTRIL) | 2 times daily. | | | 12 | 9 | | 10 mg tablet | | | | | | + + + +---------+ + + | loperamide | Take 2 mg by mouth 2 | | 0 | 10/17/19 | | | (IMODIUM A-D) 2 MG | times daily. | | | 12 | 9 | | tablet | | | | | | + + + +---------+ + + | olmesartan | Take 40 mg by mouth | | 0 | 10/17/19 | | | (BENICAR) 40 MG | Daily. | | | 12 | 9 | | tablet | | | | | | + + + +---------+ + + | simvastatin | Take 40 mg by mouth | | 0 | 10/17/19 | | | (ZOCOR) 40 mg tablet | every evening. | | | 12 | 9 | + + + +---------+ + + | tadalafil (CIALIS) | Take 20 mg by mouth | | 0 | 10/17/19 | | | 20 MG tablet | as needed. | | | 12 | 9 | + + + +---------+ + + | warfarin | Take 3 mg by mouth | | 0 | 10/17/19 | | | (COUMADIN) 3 MG | Daily. | | | 12 | 9 | | tablet | | | | | | + + + +---------+ + + documented as of this encounter [...] [address] | | | | | | [place] [address] | | | | | | [phone] | | | | | | | | +--------+---------+ + + + documented as of this encounter Procedures + +--------+ + + + | Procedure Name | Priori | Date/Time | Associated Diagnosis | Comments | | | ty | | | | + +--------+ + + + | XR CHEST 2 VIEWS | Routin | 06/12/2016 | | Results for this | | | e | 2:29 AM | | procedure are in the | | | | PST | | results section. | + +--------+ + + + documented in this encounter Results XR Chest 2 Vws (06/12/2016 2:29 AM PST) + + | Specimen | + + | | + + + + + | Narrative | Performed At | + + + | This is a non-reportable procedure without a radiologist report and | | | is used for image storage only | | + + + + + | Procedure Note | + + | Armando Rdz Luli - 02/17/2019 5:56 AM PDT This is a non-reportable procedure | | without a radiologist report and isused for image storage only | + + documented in this encounter Visit Diagnoses + + | Diagnosis | + + | Pain Generalized pain | + + documented in this encounter"
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
--- OUTSIDE RECORDS SUMMARY | ~2020-02-22 | XMS | Encounter Summary ---
Demographics + + + | Address | [address] | | | [place] [address] | + + + | Home Phone | | + + + | Preferred Language | Unknown | + + + | Marital Status | | + + + | Adventist Affiliation | 1077 | + + + | Race | White | + + + | Ethnic Group | Not or | + + + Author + + + | Author | [facility] | | | and [place] | + + + | Organization | [facility] | | | [...] ECON | Unknown | | | in [facility]) | | | | + + +---------+ + Care Team Providers + +------+ + | Care Welder Operator Name | Role | Phone | + +------+ + PCP | Unavailable | + +------+ + Encounter Details +--------+ + + + + | Date | Type | Department | Care Team | Description | +--------+ + + + + | 10/23/ | Orders Only | [facility] | Enzo Knox, | | | 2017 | | [address] | [address] | | | | | [place], [place] | [place] [address] | | | | | [address] | [phone] | | | | | [phone] | | | +--------+ + + + [...] [address] | | | | | | [place] [address] | | | | | | [phone] | | | | | | | | +--------+---------+ + + + documented as of this encounter Procedures + +--------+ + + + | Procedure Name | Priori | Date/Time | Associated Diagnosis | Comments | | | ty | | | | + +--------+ + + + | BASIC METABOLIC | Routin | 10/23/2017 | | Results for this | | PANEL | e | 12:14 PM | | procedure are in the | | | | PDT | | results section. | + +--------+ + + + documented in this encounter Results Basic Metabolic Panel (10/23/2017 12:14 PM PDT) + + + + + + | Component | Value | Ref Range | Performed | Pathologist | | | | | At | Signature | + + + + + + | Na | 136 | 135 - 145 | EXTERNAL | | | | | mmol/L | LAB | | + + + + + + | K | 4.3 | 3.5 - 4.9 | EXTERNAL | | | | | mmol/L | LAB | | + + + + + + | Cl | 96 (L) | 99 - 109 mmol/L | EXTERNAL | | | | | | LAB | | + + + + + + | CO2 | 34 (H) | 23 - 32 mmol/L | EXTERNAL | | | | | | LAB | | + + + + + + | Anion Gap | 10 | 5 - 20 mmol/L | EXTERNAL | | | | | | LAB | | + + + + + + | Glucose, | 123 (H) | 65 - 99 mg/dL | EXTERNAL | | | Fasting | | | LAB | | + + + + + + | BUN | 17 | 8 - 25 mg/dL | EXTERNAL | | | | | | LAB | | + + + + + + | Creatinine | 0.9 | 0.70 - 1.30 | EXTERNAL | | | | | mg/dL | LAB | | + + + + + + | BUN/Creatin | 19 | | EXTERNAL | | | ine Ratio | | | LAB | | + + + + + + | Calcium | 9.3 | 8.5 - 10.5 | EXTERNAL | | | | | mg/dL | LAB | | + + + + + + | Estimated | >60Comment: GFR <60: | mL/min/1.73_m2 | EXTERNAL | | | GFR | CHRONIC KIDNEY DISEASE, | | LAB | | | | IF FOUND OVER A 3 MONTH | | | | | | PERIOD. GFR <15: KIDNEY | | | | | | FAILURE. FOR | | | | | | AMERICANS, MULTIPLY THE | | | | | | CALCULATED GFR BY 1.210. | | | | + + + + + + + + | Specimen | + + | Blood specimen | | (specimen) | + + + +---------+ + + | Performing | Address | City/State/Zipcode | Phone Number | | Organization | | | | + +---------+ + + | EXTERNAL LAB | | | | + +---------+ + + documented in this encounter Visit Diagnoses Not on filedocumented in this encounter"
--- OUTSIDE RECORDS SUMMARY | ~2020-02-22 | XMS | Encounter Summary ---
Demographics + + + | Address | [address] | | | [place] [address] | + + + | Home Phone | | + + + | Preferred Language | Unknown | + + + | Marital Status | | + + + | Buddhist Affiliation | 1077 | + + + | Race | White | + + + | Ethnic Group | Not or | + + + Author + + + | Author | [facility] | | | and [place] | + + + | Organization | [facility] | | | and [...] ECON | Unknown | | | in [facility]) | | | | + + +---------+ + Care Team Providers + +------+ + | Care Counselling Psychologist Name | Role | Phone | + +------+ + PCP | Unavailable | + +------+ + Encounter Details +--------+ + + + + | Date | Type | Department | Care Team | Description | +--------+ + + + + | 05/18/ | Hospital | [facility] | Timur Londono MD | | | 2007 | Encounter | MED CTR GENERIC OP | [address], [place] | | | | | CONV DEPT [address] [place], [place] | | | | | [address] [place], | [address] | | | | | [place] [address] | | | | | | [phone] | | | +--------+ + + + [...] [address] | | | | | | [place] [address] | | | | | | [phone] | | | | | | | | +--------+---------+ + + + documented as of this encounter Visit Diagnoses Not on filedocumented in this encounter"
--- OUTSIDE RECORDS SUMMARY | ~2020-02-22 | XMS | Encounter Summary ---
Demographics + + + | Address | [address] | | | [place] [address] | + + + | Home Phone | | + + + | Preferred Language | Unknown | + + + | Marital Status | | + + + | Advent Affiliation | 1077 | + + + | Race | White | + + + | Ethnic Group | Not or | + + + Author + + + | Author | [facility] | | | and [place] | + + + | Organization | [facility] | | | [...] ECON | Unknown | | | in [facility]) | | | | + + +---------+ + Care Team Providers + +------+ + | Care Cloth Mercerizer Operator Name | Role | Phone | + +------+ + PCP | Unavailable | + +------+ + Encounter Details +--------+ + + + + | Date | Type | Department | Care Team | Description | +--------+ + + + + | 10/25/ | Hospital | [facility] | Conversion | Pain | | 2018 | Encounter | CONVERSION [address] | Transaction, | | | | | [address] | Provider Unknown | | | | | [place], [place] | [phone] | | | | | [address] | | | | | | [phone] | | | +--------+ + + + [...] [address] | | | | | | [place] [address] | | | | | | [phone] | | | | | | | | +--------+---------+ + + + documented as of this encounter Procedures + +--------+ + + + | Procedure Name | Priori | Date/Time | Associated Diagnosis | Comments | | | ty | | | | + +--------+ + + + | XR CHEST 2 VIEWS | Routin | 06/25/2010 | | Results for this | | | e | 2:29 AM | | procedure are in the | | | | PST | | results section. | + +--------+ + + + documented in this encounter Results XR Chest 2 Vws (06/25/2010 2:29 AM PST) + + | Specimen [...]
--- OUTSIDE RECORDS SUMMARY | ~2020-02-22 | XMS | Clinical Summary ---
Demographics + + + | Address | [address] | | | [place] [address] | + + + | Home Phone | | + + + | Preferred Language | Unknown | + + + | Marital Status | | + + + | Mandaeism Affiliation | 1077 | + + + | Race | White | + + + | Ethnic Group | Not or | + + + Author + + + | Author | [facility] | | | and [place] | + + + | Organization | [facility] | | | [...] ECON | Unknown | | | in Law) | | | | + + +---------+ + Care Team Providers + +------+ + | Care Elementary Ell Teacher Name | Role | Phone | + +------+ + | Nalini Jones MD | PCP | | + +------+ + Allergies + + + + + + | Active Allergy | Reactions | Severity | Noted | Comments | | | | | Date | | + + + + + + | Fentanyl | Diarrhea | Low | 11/13/19 | | | | | | 18 | | + + + + + + Medications + + + +---------+------+------+-------+ | Medication | Sig | Dispensed | Refills | Star | End | Statu | | | | | | t | Date | s | | | | | | Date | | | + + + +---------+------+------+-------+ | Coenzyme Q10 | Take 200 mg by mouth | | 0 | 04/1 | | Activ | | (COQ10) 200 MG CAPS | Daily. | | | 08/26 | | e | | | | | | 12 | | | + + + +---------+------+------+-------+ | Multiple | one by mouth daily | | 0 | 04/1 | | Activ | | Vitamins-Minerals | | | | 08/26 | | e | | (CENTRUM SILVER) | | | | 12 | | | | TABS | | | | | | | + + + +---------+------+------+-------+ +---+ + | | Additional | | | InformationPatient | | | taking differently: | | | 1 tablet, Reported | | | on 03/29/2019 11:19 | | | AM | +---+ + + + +--------+----+------+---+-------+ | Multiple | Take 1 capsule by | | 0 | | | Activ | | Vitamins-Minerals | mouth daily. | | | | | e | | (PRESERVISION AREDS | | | | | | | | 2 PO) | | | | | | | + + +--------+----+------+---+-------+ | UNABLE TO FIND | Start oxygen on | | 0 | 06/2 | | Activ | | | exertion/ambulation | | | 020 | | e | | | at __ LPM via nasal | | | 18 | | | | | cannula, and at | | | | | | | | night at __ LPM. Pls | | | | | | | | evaluate for | | | | | | | | conserving device. | | | | | | | | Pls provide home | | | | | | | | concentrator and | | | | | | | | portable oxygen | | | | | | | | system. | | | | | | + + +--------+----+------+---+-------+ | acetaminophen | Take 500 mg by mouth | | 0 | | | Activ | | (TYLENOL) 500 mg | every 6 hours as | | | | | e | | tablet | needed. | | | | | | + + +--------+----+------+---+-------+ | apixaban (ELIQUIS) | Take 1 tablet by | | 0 | 01/1 | | Activ | | 2.5 mg tablet | mouth 2 (two) times | | | 6/20 | | e | | | daily. | | | 19 | | | + + +--------+----+------+---+-------+ | atorvaSTATin | Take 1 tablet by | | 0 | 11/0 | | Activ | | (LIPITOR) 10 mg | mouth every morning. | | | 6/20 | | e | | tablet | | | | 18 | | | + + +--------+----+------+---+-------+ | MAGNESIUM PO | Take 400 mg by | | 0 | | | Activ | | | mouth daily. | | | | | e | + + +--------+----+------+---+-------+ | mirabegron | Take 1 tablet by | | 0 | 05/2 | | Activ | | (MYRBETRIQ) 50 mg ER | mouth daily. | | | 9/20 | | e | | tablet | | | | 19 | | | + + +--------+----+------+---+-------+ | spironolactone | Take 25 mg by mouth | | 0 | | | Activ | | (ALDACTONE) 25 mg | twice daily | | | | | e | | tablet | | | | | | | + + +--------+----+------+---+-------+ | tamsulosin | Take 0.8 mg by mouth | | 0 | 11/0 | | Activ | | (FLOMAX) 0.4 mg CAPS | nightly. | | | 6/20 | | e | | | | | | 18 | | | + + +--------+----+------+---+-------+ | | Inhale 1 puff into | | 0 | 05/1 | | Activ | | umeclidinium-vilante | the lungs daily. | | | 07/26 | | e | | rol (ANORO ELLIPTA) | | | | 18 | | | | 62.5-25 mcg/puff | | | | | | | | inhaler | | | | | | | + + +--------+----+------+---+-------+ | aspirin 81 MG | Take 81 mg by mouth | | 0 | | | Activ | | tablet | daily. | | | | | e | + + +--------+----+------+---+-------+ | torsemide | Take 1 tablet by | 60 | 11 | / | | Activ | | (DEMADEX) 10 mg | mouth 2 times daily. | tablet | | 09/23 | | e | | tablet | At 8 am and 2pm | | | 19 | | | + + +--------+----+------+---+-------+ | | Inhale 1 puff into | | 0 | | | Activ | | albuterol-ipratropiu | the lungs every 4 | | | | | e | | m (COMBIVENT | hours as needed. | | | | | | | RESPIMAT) 100-20 | | | | | | | | mcg/puff inhaler | | | | | | | + + +--------+----+------+---+-------+ | bisoprolol | Take 1 tablet by | 30 | 11 | 12/ | | Activ | | (ZEBETA) 5 mg tablet | mouth At Bedtime. | tablet | | 03/26 | | e | | | Hold for HR < 50, or | | | 19 | | | | | SBP< 100 mmhg | | | | | | + + +--------+----+------+---+-------+ | DEBROX 6.5 % otic | Place 1 drop into | | 0 | 01/3 | | Activ | | solution | both ears 2 times | | | 0/20 | | e | | | daily. | | | 20 | | | + + +--------+----+------+---+-------+ | | Take 1 tablet by | | 0 | | | Activ | | oxyCODONE-acetaminop | mouth Daily as | | | | | e | | hen (PERCOCET) 5-325 | needed for Pain. | | | | | | | mg per tablet | | | | | | | + + +--------+----+------+---+-------+ Active Problems + + + | Problem | Noted Date | + + + | Moderate mitral regurgitation by prior echocardiogram | 12/24/2018 | + + + | Chronic anticoagulation | 10/19/2018 | + + + + + | Manjeet: Miles 2.5 mg BID | + + + + + | Stage 3 chronic kidney disease | 10/19/2018 | + + + | Coronary artery disease involving [place] coronary artery of | 05/18/2018 | | [place] heart | | + + + | Diaphragmatic paralysis | 12/24/2017 | + + + | Mixed restrictive and obstructive lung disease | 12/24/2017 | + + + | Chronic diastolic heart failure | 11/12/2017 | + + + + + | Overview: Heart failure with preserved EF, NYHA class III, | | stage C | + + + + + | Essential hypertension | 11/12/2017 | + + + | Chronic obstructive pulmonary disease | 10/21/2017 | + + + | Chronic respiratory failure with hypoxia, on home O2 therapy | 10/21/2017 | + + + | Other secondary pulmonary hypertension | 09/19/2017 | + + + | Former smoker | 09/19/2017 | + + + | T12 compression fracture | 09/19/2017 | + + + + + | Overview: Last Assessment & Plan: | | Please see discussion under lumbar facet hypertrophy | + + + + + | Spondylolisthesis of lumbar region | 11/09/2012 | + + + + + | Overview: Last Assessment & Plan: | | Please see discussion under lumbar facet hypertrophy | + + + + + | Mixed hyperlipidemia | 10/17/2011 | + + + Resolved Problems + + + + | Problem | Noted | Resolved | | | Date | Date | + + + + | Absolute anemia | 10/20/19 | | | | 19 | 9 | + + + + | Encounter for monitoring diuretic therapy | 10/20/19 | | | | 19 | 9 | + + + + | Hospital discharge follow-up | 12/03/19 | | | | 18 | 9 | + + + + | Persistent atrial fibrillation | 09/20/19 | | | | 18 | 9 | + + + + | ATRIAL FIBRILLATION | 10/17/19 | | | | 12 | 9 | + + + + | CHF | 10/17/19 | | | | 12 | 9 | + + + + | Coronary artery disease | 10/17/19 | | | | 12 | 9 | + + + + | Essential hypertension, benign | 10/17/19 | | | | 12 | 0 | + + + + | Coronary atherosclerosis | 10/17/19 | | | | 12 | 9 | + + + + Encounters +--------+---------+ + + + | Date | Type | Specialty | Care Team | Description | +--------+---------+ + + + | 12/14/ | Office | Cardiology | Sera Godwin, | Chronic diastolic | | 2020 | Visit | | MD | heart failure (HCC) | | | | | | (Primary Dx); | | | | | | Essential | | | | | | hypertension; | | | | | | Coronary artery | | | | | | disease of [place] | | | | | | artery of [place] | | | | | | 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 | | | | | | (HCC) | +--------+---------+ + + + from Last 3 Months Family History + + +------+ + | Medical History | Relation | Name | Comments | + + +------+ + | Cancer | Sister | | | + + +------+ + + +------+--------+ + | Relation | Name | Status | Comments | + +------+--------+ + | Sister | | Alive | | + +------+--------+ + | Sister | | | | + +------+--------+ + Social History + +-------+ +--------+------+ | [...] on file | | + + + Last Filed Vital Signs + + + + + | Vital Sign | Reading | Time Taken | Comments | + + + + + | Blood Pressure | 98/66 | 12/15/2019 10:01 AM | | | | | PDT | | + + + + + | Pulse | 66 | 12/15/2019 10:01 AM | | | | | PDT | | + + + + + | Temperature | 36.7 C (98.1 F) | 09/27/2019 10:29 AM | | | | | PDT | | + + + + + | Respiratory Rate | 18 | 12/24/2018 1:33 PM | | | | | PDT | | + + + + + | Oxygen Saturation | 93% | 12/15/2019 10:01 AM | | | | | PDT | | + + + + + | Inhaled Oxygen | - | - | | | Concentration | | | | + + + + + | Weight | 68.5 kg (151 lb) | 12/15/2019 10:01 AM | | | | | PDT | | + + + + + | Height | 162.6 cm (5' 4") | 12/15/2019 10:01 AM | | | | | PDT | | + + + + + | Body Mass Index | 25.92 | 12/15/2019 10:01 AM | | | | | PDT | | + + + + + Plan of Treatment +--------+---------+ + + + | Date | Type | Specialty | Care Team | Description | +--------+---------+ + + + | 06/22/ | Office | Cardiology | Jody Lebron | | | 2019 | Visit | | [address] | | | | | | [address] | | | | | | [place] [address] | | | | | | [phone] | | | | | | | | +--------+---------+ + + + + + + + + | Health Maintenance | Due Date | Last | Comments | | | | Done | | + + + + + | Medication | | | | | Management | 2 | | | + + + + + | Vaccine: | | | | | Dtap/Tdap/Td (1 - | 1 | | | | Tdap) | | | | + + + + + | Vaccine: Zoster (1 | | | | | of 2) | 2 | | | + + + + + | Vaccine: | | | | | Pneumococcal 65+ (1 | 7 | | | | of 1 - PPSV23) | | | | + + + + + | Med Mgmt: HCT | | 11/15/19 | | | | 9 | 18, | | | | | 11/14/19 | | | | | 18, | | | | | 11/13/19 | | | | | 18, | | | | | Addition | | | | | al | | | | | history | | | | | exists | | + + + + + | Med Mgmt: HGB | | 11/15/19 | | | | 9 | 18, | | | | | 11/14/19 | | | | | 18, | | | | | 11/13/19 | | | | | 18, | | | | | Addition | | | | | al | | | | | history | | | | | exists | | + + + + + | Adult Annual | | | | | Wellness Visit | 9 | | | + + + + + | Med Mgmt: Cr | | 06/25/20 | | | | 9 | 18, | | | | | 12/05/19 | | | | | 18, | | | | | 11/15/19 | | | | | 18, | | | | | Addition | | | | | al | | | | | history | | | | | exists | | + + + + + | Med Mgmt: K | | 06/25/20 | | | | 9 | 18, | | | | | 12/05/19 | | | | | 18, | | | | | 11/15/19 | | | | | 18, | | | | | Addition | | | | | al | | | | | history | | | | | exists | | + + + + + | Med Mgmt: Na | | 06/25/20 | | | | 9 | 18, | | | | | 12/05/19 | | | | | 18, | | | | | 11/15/19 | | | | | 18, | | | | | Addition | | | | | al | | | | | history | | | | | exists | | + + + + + | Vaccine: Influenza | | | | | (#1) | 0 | | | + + + + + Procedures + +--------+ + + + | Procedure Name | Priori | Date/Time | Associated Diagnosis | Comments | | | ty | | | | + +--------+ + + + | LABS - EXTERNAL SCAN | | 12/15/2019 | | Results for this | | | | 12:00 AM | | procedure are in the | | | | PDT | | results section. | + +--------+ + + + from Last 3 Months Results LABS - EXTERNAL SCAN (12/15/2019 12:00 AM PDT) + + + | Narrative | Performed At | + + + | Ordered by an | | | unspecified provider. | | + + + from Last 3 Months Insurance + +--------+ +--------+ +---------+--------+ | Payer | Benefi | Subscriber | Effect | Phone | Address | Type | | | t Plan | ID | rico | | | | | | / | | Dates | | | | | | Group | | | | | | + +--------+ +--------+ +---------+--------+ | MEDICARE | MEDICA | [id number] | 11/05/19 | [phone] | | Medica | | | RE | | 00-Pre | 5 | | re | | | PART A | | sent | | | | | | AND B | | | | | | + +--------+ +--------+ +---------+--------+ | AARP | AARP | [id number] | 07/07/19 | [phone] | | Indemn | | | MDCR | | 19-Pre | 0 | | ity | | | SUPPL | | sent | | | | + +--------+ +--------+ +---------+--------+ + +--------+ +--------+ + + | Guarantor Name | Accoun | Relation to | Date | Phone | Billing Address | | | t Type | Patient | of | | | | | | | | | | + +--------+ +--------+ + + | Yeyo Casarez | Person | Self | [birth year] | [address] | | | al/Fam | | 1930 | [phone] | [place] | | | [place] | | | [place] (Home) | [address] | + +--------+ +--------+ + + Advance Directives + + + + + | Type | Date Recorded | Patient | Explanation | | | | [employer] | | + + + + + | Power of | | | | | Ad Setter | | | | + + + + + | Advance | 12/03/2017 4:53 | | | | Directive | PM | | | + + + + + | Advance | 12/03/2017 5:41 | | | | Directive | PM | | | + + + + +
--- OUTSIDE RECORDS SUMMARY | ~2020-02-22 | XMS | Encounter Summary ---
Demographics + + + | Address | [address] | | | [place] [address] | + + + | Home Phone | | + + + | Preferred Language | Unknown | + + + | Marital Status | | + + + | Worship Affiliation | 1077 | + + + | Race | White | + + + | Ethnic Group | Not or | + + + Author + + + | Author | [facility] | | | and [place] | + + + | Organization | [facility] | | | and [...] ECON | Unknown | | | in [facility]) | | | | + + +---------+ + Care Team Providers + +------+ + | Care Director Gift Name | Role | Phone | + +------+ + PCP | Unavailable | + +------+ + Encounter Details +--------+ + + + + | Date | Type | Department | Care Team | Description | +--------+ + + + + | 06/25/ | Orders Only | [facility] | Jody Lebron | | | 2018 | | CARDIOLOGY [place] | [address] | | | | | [address] | [address] | | | | | [place], [place] | [place] [address] | | | | | [address] | [phone] | | | | | [phone] | | | +--------+ + + + [...] [address] | | | | | | [place] [address] | | | | | | [phone] | | | | | | | | +--------+---------+ + + + documented as of this encounter Procedures + +--------+ + + + | Procedure Name | Priori | Date/Time | Associated Diagnosis | Comments | | | ty | | | | + +--------+ + + + | COMPREHENSIVE | Routin | 06/25/2018 | | Results for this | | METABOLIC PANEL | e | 9:05 AM | | procedure are in the | | | | PST | | results section. | + +--------+ + + + documented in this encounter Results Comprehensive Metabolic Panel (06/25/2018 9:05 AM PST) + +---------+ + + + | Component | Value | Ref Range | Performed | Pathologist | | | | | At | Signature | + +---------+ + + + | Glucose, | 117 (A) | 70 - 100 mg/dL | EXTERNAL | | | Fasting | | | LAB | | + +---------+ + + + | BUN | 20 | 6 - 23 mg/dL | EXTERNAL | | | | | | LAB | | + +---------+ + + + | Creatinine | 0.81 | 0.70 - 1.11 | EXTERNAL | | | | | mg/dL | LAB | | + +---------+ + + + | BUN/Creatin | 24.7 | 6.0 - 28.6 | EXTERNAL | | | ine Ratio | | | LAB | | + +---------+ + + + | Calcium | 9.4 | 8.5 - 10.3 | EXTERNAL | | | | | mg/dL | LAB | | + +---------+ + + + | Protein, | 6.0 | 6.0 - 8.3 g/dL | EXTERNAL | | | Total | | | LAB | | + +---------+ + + + | Albumin | 3.7 | 3.5 - 5.0 | EXTERNAL | | | | | | LAB | | + +---------+ + + + | Globulin | 2.3 | 1.8 - 3.5 | EXTERNAL | | | | | | LAB | | + +---------+ + + + | A/G Ratio | 1.6 | 1.1 - 2.4 | EXTERNAL | | | | | | LAB | | + +---------+ + + + | Bilirubin | 0.7 | 0.0 - 1.2 mg/dL | EXTERNAL | | | Total | | | LAB | | + +---------+ + + + | ALP, | 218 (A) | 31 - 120 | EXTERNAL | | | External | | | LAB | | + +---------+ + + + | ALT | 36 | 7 - 52 U/L | EXTERNAL | | | | | | LAB | | + +---------+ + + + | AST | 37 | 13 - 39 U/L | EXTERNAL | | | | | | LAB | | + +---------+ + + + | Na | 135 | 132 - 143 | EXTERNAL | | | | | mmol/L | LAB | | + +---------+ + + + | K | 4.7 | 3.6 - 5.1 | EXTERNAL | | | | | mmol/L | LAB | | + +---------+ + + + | Cl | 88 (A) | 95 - 112 mmol/L | EXTERNAL | | | | | | LAB | | + +---------+ + + + | CO2 | 38 (A) | 19 - 31 mmol/L | EXTERNAL | | | | | | LAB | | + +---------+ + + + | Anion Gap | 13.7 | 7 - 21 mmol/L | EXTERNAL | | | | | | LAB | | + +---------+ + + + | Estimated | 90 | mg/dL | EXTERNAL | | | GFR | | | LAB | | + +---------+ + + + + + | Specimen [...]
--- OUTSIDE RECORDS SUMMARY | ~2020-02-22 | XMS | Encounter Summary ---
Demographics + + + | Address | [address] | | | [place] [address] | + + + | Home Phone | | + + + | Preferred Language | Unknown | + + + | Marital Status | | + + + | Religion Affiliation | 1077 | + + + | Race | White | + + + | Ethnic Group | Not or | + + + Author + + + | Author | [facility] | | | and [place] | + + + | Organization | [facility] | | [...] ECON | Unknown | | | in [facility]) | | | | + + +---------+ + Care Team Providers + +------+ + | Care Enforcement Safety Officer Name | Role | Phone | + +------+ + | Nalini Jones MD | PCP | | + +------+ + Encounter Details +--------+ + + + + | Date | Type | Department | Care Team | Description | +--------+ + + + + | 10/05/ | Orders Only | [facility] | Anna Montgomery, | | | 2018 | | CONVERSION 888 | MD [address] | | | | | [address] | [place], [place] | | | | | [place], [place] | [address] | | | | | [address] | | | | | | [phone] | | | +--------+ + + + [...] TERAN | | | | | | [facility] [address] | | | | | | [phone] | | | | | | | | +--------+---------+ + + + documented as of this encounter Procedures + +--------+ + + + | Procedure Name | Priori | Date/Time | Associated Diagnosis | Comments | | | ty | | | | + +--------+ + + + | ECHO INTERPRETATION | Routin | 10/05/2018 | | Results for this | | OF OUTSIDE FILMS | e | 12:41 PM | | procedure are in the | | | | PDT | | results section. | + +--------+ + + + documented in this encounter Results ECHO Interpretation of Outside Films (10/05/2018 12:41 PM PDT) + + | Specimen | + + | | + + + + + | Impressions | Performed At | + + + | 1. The left ventricle is normal in size, wall thickness and systolic | | | function EF 55-60% 2. The right ventricle is moderately enlarged | | | with normal systolic function. 3. Moderate mitral regurgitation with | | | severely dilated left atrium. 4. Mild tricuspid regurgitation and | | | moderate pulmonary hypertension. 5. There is no pericardial effusion. | | + + + + + + | Narrative | Performed At | + + + | Patient Name: RUDY CASAREZ Date of : 1930 | | | Performing Physician: Sera Godwin | | | | | | INDICATIONS HYPOTENSION, MR CONCLUSIONS | | | 1. The left ventricle is normal in size, wall thickness and systolic | | | function EF 55-60% 2. The right ventricle is moderately enlarged | | | with normal systolic function. 3. Moderate mitral regurgitation with | | | severely dilated left atrium. 4. Mild tricuspid regurgitation and | | | moderate pulmonary hypertension. 5. There is no pericardial effusion. | | | FINDINGS -------- ECG rhythm: Atrial fibrillation. Study: A | | | 2-dimensional transthoracic echocardiogram with m-mode, spectral and | | | color flow Doppler was perfomed. Study: This was a technically | | | adequate study. Study: Suprasternal and subcostal windows not | | | visualized. Left Ventricle: Overall left ventricular systolic | | | function is normal with, an EF between 55 - 60 %. Left Ventricle: The | | | left ventricle cavity size is normal. Left Ventricle: Left | | | ventricular wall thickness is normal. Right Ventricle: The right | | | ventricle is moderately enlarged. Right Ventricle: The right | | | ventricular systolic function is normal. Left Atrium: The left atrium | | | is markedly enlarged. Right Atrium: The right atrium is moderately | | | enlarged. Aortic Valve: The aortic valve is trileaflet. Aortic | | | Valve: There is mild aortic regurgitation. Aortic Valve: There is no | | | evidence of aortic stenosis. Aortic Valve: The aortic valve is | | | trileaflet. Aortic Valve: Aortic valve is mildly thickened. Aortic | | | Valve: The aortic pressure half-time by doppler is 467ms. Mitral | | | Valve: Normal appearing mitral valve. Mitral Valve: Moderate mitral | | | regurgitation is present. Tricuspid Valve: The tricuspid valve | | | appears structurally normal. Tricuspid Valve: Mild tricuspid | | | regurgitation present. Tricuspid Valve: There is moderate pulmonary | | | hypertension. Tricuspid Valve: The right ventricular systolic | | | pressure (pulmonary artery systolic pressure), as measured by Doppler, | | | is 52 mmHg. Pulmonic Valve: Pulmonic valve appears structurally | | | normal. Pulmonic Valve: Trace pulmonic regurgitation. Pericardium: | | | There is no pericardial effusion. Pericardium: No pleural effusion | | | seen. IVC/Hepatic Veins: The IVC was not well visualized. Aorta: The | | | aortic root is dilated, limited to the sinuses of valsalva measuring | | | up to 41mm. Septum: Mobile interatrial septum. MEASUREMENTS | | | Ao asc: 3.49 cm Ao sinus: 4.[address] junct: | | | 3.37 cm LA Diam: 6.87 cm EDV(Teich): 86.47 ml IVSd: | | | 1.06 cm LVIDd: 4.37 cm LVPWd: 1.13 cm LVOT Area: 4.34 cm2 | | | LVOT Diam: 2.35 cm %FS: 36.00 % EF(Teich): 65.84 % | | | ESV(Teich): 29.53 ml LVIDs: 2.79 cm SV(Teich): 56.94 ml RV | | | Major: 7.83 cm RV Minor: 4.79 cm LVEF MOD A2C: 58.60 % SV | | | MOD A2C: 85.09 ml LVEF MOD A4C: 51.78 % SV MOD A4C: 64.23 | | | ml EF Biplane: 55.85 % LVEDV MOD BP: 136.88 ml LVESV MOD BP: | | | 60.43 ml LVEDV MOD A2C: 145.20 ml LVLd A2C: 7.58 cm LVEDV | | | MOD A4C: 124.03 ml LVLd A4C: 7.22 cm LVESV MOD A2C: 60.11 | | | ml LVLs A2C: 6.39 cm LVESV MOD A4C: 59.79 ml LVLs A4C: | | | 6.26 cm LAESV(A-L): 184.94 ml LAESV Index (A-L): 101.61 ml/m2 | | | LAAs A2C: 38.67 cm2 LAESV A-L A2C: 172.17 ml LALs A2C: | | | 7.37 cm LAAs A4C: 41.54 cm2 LAESV A-L A4C: 195.38 ml LALs | | | A4C: 7.49 cm RAAs: 21.71 cm2 RAESV A-L: 58.10 ml RAESV | | | MOD: 61.98 ml RALs: 6.88 cm TAPSE: 1.90 cm AR Dec Howard: | | | 2.60 m/s2 AR Dec Time: 1609.18 ms AR maxP.36 mmHg AR | | | PHT: 466.66 ms AR Vmax: 4.19 m/s AV maxP.15 mmHg AV | | | meanP.43 mmHg AV Vmax: 1.51 m/s AV Vmean: 1.00 m/s AV | | | VTI: 27.53 cm EFRAÍN Vmax: 2.61 cm2 EFRAÍN (VTI): 2.84 cm2 AVAI | | | (Vmax): 0.00 cm2/m2 AVAI (VTI): 0.00 cm2/m2 LVOT maxPG: | | | 3.31 mmHg LVOT meanP.66 mmHg LVSI Dopp: 42.98 ml/m2 LVSV | | | Dopp: 78.23 ml LVOT Vmax: 0.91 m/s LVOT Vmean: 0.59 m/s | | | LVOT VTI: 18.00 cm MV A Kehinde: 0.44 m/s MV Dec Howard: 3.91 | | | m/s2 MV DecT: 187.42 ms MV E Kehinde: 0.73 m/s MV E/A Ratio: | | | 1.65 MV PHT: 54.35 ms MVA By PHT: 4.04 cm2 TR maxP.14 | | | mmHg TR Vmax: 3.35 m/s RV s': 0.12 m/s Earth Mover: MORALES | | | Authenticated by: Sera Almontenorth [place] Report Date/Time: 10-06-2018 | | | 15:40:22 | | + + + + + | Procedure Note | + + | [place], Rad Conversion - 02/25/2019 12:31 PM PDT Patient Name: Carlos CASAREZ of | | : 1930 Performing Physician: Sera | | Tato INDICATIONS------ | | -----HYPOTENSION, MR CONCLUSIONS 1. The left ventricle is normal in size, wall | | thickness and systolic function EF 55-60%2. The right ventricle is moderately enlarged | | with normal systolic function.3. Moderate mitral regurgitation with severely dilated | | left atrium.4. Mild tricuspid regurgitation and moderate pulmonary hypertension.5. There | | is no pericardial effusion. FINDINGS--------ECG rhythm: Atrial fibrillation.Study: A | | 2-dimensional transthoracic echocardiogram with m-mode, spectral and color flow Doppler | | was perfomed.Study: This was a technically adequate study.Study: Suprasternal and | | subcostal windows not visualized.Left Ventricle: Overall left ventricular systolic | | function is normal with, an EF between 55 - 60 %.Left Ventricle: The left ventricle | | cavity size is normal.Left Ventricle: Left ventricular wall thickness is normal.Right | | Ventricle: The right ventricle is moderately enlarged.Right Ventricle: The right | | ventricular systolic function is normal.Left Atrium: The left atrium is markedly | | enlarged.Right Atrium: The right atrium is moderately enlarged.Aortic Valve: The aortic | | valve is trileaflet.Aortic Valve: There is mild aortic regurgitation.Aortic Valve: There | | is no evidence of aortic stenosis.Aortic Valve: The aortic valve is trileaflet.Aortic | | Valve: Aortic valve is mildly thickened.Aortic Valve: The aortic pressure half-time by | | doppler is 467ms.Mitral Valve: Normal appearing mitral valve.Mitral Valve: Moderate | | mitral regurgitation is present.Tricuspid Valve: The tricuspid valve appears | | structurally normal.Tricuspid Valve: Mild tricuspid regurgitation present.Tricuspid | | Valve: There is moderate pulmonary hypertension.Tricuspid Valve: The right ventricular | | systolic pressure (pulmonary artery systolic pressure), as measured by Doppler, is 52 | | mmHg.Pulmonic Valve: Pulmonic valve appears structurally normal.Pulmonic Valve: Trace | | pulmonic regurgitation.Pericardium: There is no pericardial effusion.Pericardium: No | | pleural effusion seen.IVC/Hepatic Veins: The IVC was not well visualized.Aorta: The | | aortic root is dilated, limited to the sinuses of valsalva measuring up to 41mm.Septum: | | Mobile interatrial septum. MEASUREMENTS Ao asc: 3.49 cmAo sinus: 4.11 | | cmAo st junct: 3.37 cmLA Diam: 6.87 cmEDV(Teich): 86.47 mlIVSd: 1.06 cmLVIDd: | | 4.37 cmLVPWd: 1.13 cmLVOT Area: 4.34 [id number] Diam: 2.35 cm%FS: 36.00 %EF(Teich): | | 65.84 %ESV(Teich): 29.53 mlLVIDs: 2.79 cmSV(Teich): 56.94 mlRV Major: 7.83 | | cmRV Minor: 4.79 cmLVEF MOD A2C: 58.60 %SV MOD A2C: 85.09 mlLVEF MOD A4C: 51.78 | | %SV MOD A4C: 64.23 mlEF Biplane: 55.85 %LVEDV MOD BP: 136.88 mlLVESV MOD BP: | | 60.43 mlLVEDV MOD A2C: 145.20 mlLVLd A2C: 7.58 cmLVEDV MOD A4C: 124.03 mlLVLd A4C: | | 7.22 cmLVESV MOD A2C: 60.11 mlLVLs A2C: 6.39 cmLVESV MOD A4C: 59.79 mlLVLs A4C: | | 6.26 cmLAESV(A-L): 184.94 mlLAESV Index (A-L): 101.61 ml/m2LAAs A2C: 38.67 | | [id number] A-L A2C: 172.17 mlLALs A2C: 7.37 cmLAAs A4C: 41.54 [id number] A-L A4C: | | 195.38 mlLALs A4C: 7.49 cmRAAs: 21.71 [id number] A-L: 58.10 mlRAESV MOD: 61.98 | | mlRALs: 6.88 cmTAPSE: 1.90 cmAR Dec Howard: 2.60 m/s2AR Dec Time: 1609.18 msAR | | maxP.36 mmHgAR PHT: 466.66 msAR Vmax: 4.19 m/Roxy maxP.15 mmHgAV meanPG: | | 4.43 mmHgAV Vmax: 1.51 m/Roxy Vmean: 1.00 m/Roxy VTI: 27.53 cmAVA Vmax: 2.61 | | cm2AVA (VTI): 2.84 [id number] (Vmax): 0.00 cm2/m2AVAI (VTI): 0.00 cm2/m2LVOT maxPG: | | 3.31 mmHgLVOT meanP.66 mmHgLVSI Dopp: 42.98 ml/m2LVSV Dopp: 78.23 mlLVOT | | Vmax: 0.91 m/sLVOT Vmean: 0.59 m/sLVOT VTI: 18.00 cmMV A Kehinde: 0.44 m/sMV Dec | | Howard: 3.91 m/s2MV DecT: 187.42 msMV E Kehinde: 0.73 m/sMV E/A Ratio: 1.65MV PHT: | | 54.35 msMVA By PHT: 4.04 cm2TR maxP.14 mmHgTR Vmax: 3.35 m/sRV s': 0.12 m/s | | Earth Mover: DBSAuthenticated by: Sera Leighort Date/Time: 10-06-2018 15:40:22 | | IMPRESSION: 1. The left ventricle is normal in size, wall thickness and systolic | | function EF 55-60%2. The right ventricle is moderately enlarged with normal systolic | | function.3. Moderate mitral regurgitation with severely dilated left atrium.4. Mild | | tricuspid regurgitation and moderate pulmonary hypertension.5. There is no pericardial | | effusion. | |MEASUREMENTS | | | |Ao asc: 3.49 cm | |Ao sinus: 4.11 cm | |Ao st junct: 3.37 cm | |LA Diam: 6.87 cm | |EDV(Teich): 86.47 ml | |IVSd: 1.06 cm | |LVIDd: 4.37 cm | |LVPWd: 1.13 cm | |LVOT Area: 4.34 cm2 | |LVOT Diam: 2.35 cm | |%FS: 36.00 % | |EF(Teich): 65.84 % | |ESV(Teich): 29.53 ml | |LVIDs: 2.79 cm | |SV(Teich): 56.94 ml | |RV Major: 7.83 cm | |RV Minor: 4.79 cm | |LVEF MOD A2C: 58.60 % | |SV MOD A2C: 85.09 ml | |LVEF MOD A4C: 51.78 % | |SV MOD A4C: 64.23 ml | |EF Biplane: 55.85 % | |LVEDV MOD BP: 136.88 ml | |LVESV MOD BP: 60.43 ml | |LVEDV MOD A2C: 145.20 ml | |LVLd A2C: 7.58 cm | |LVEDV MOD A4C: 124.03 ml | |LVLd A4C: 7.22 cm | |LVESV MOD A2C: 60.11 ml | |LVLs A2C: 6.39 cm | |LVESV MOD A4C: 59.79 ml | |LVLs A4C: 6.26 cm | |LAESV(A-L): 184.94 ml | |LAESV Index (A-L): 101.61 ml/m2 | |LAAs A2C: 38.67 cm2 | |LAESV A-L A2C: 172.17 ml | |LALs A2C: 7.37 cm | |LAAs A4C: 41.54 cm2 | |LAESV A-L A4C: 195.38 ml | |LALs A4C: 7.49 cm | |RAAs: 21.71 cm2 | |RAESV A-L: 58.10 ml | |RAESV MOD: 61.98 ml | |RALs: 6.88 cm | |TAPSE: 1.90 cm | |AR Dec Howard: 2.60 m/s2 | |AR Dec Time: 1609.18 ms | |AR maxP.36 mmHg | |AR PHT: 466.66 ms | |AR Vmax: 4.19 m/s | |AV maxP.15 mmHg | |AV meanP.43 mmHg | |AV Vmax: 1.51 m/s | |AV Vmean: 1.00 m/s | |AV VTI: 27.53 cm | |EFRAÍN Vmax: 2.61 cm2 | |EFRAÍN (VTI): 2.84 cm2 | |AVAI (Vmax): 0.00 cm2/m2 | |AVAI (VTI): 0.00 cm2/m2 | |LVOT maxP.31 mmHg | |LVOT meanP.66 mmHg | |LVSI Dopp: 42.98 ml/m2 | |LVSV Dopp: 78.23 ml | |LVOT Vmax: 0.91 m/s | |LVOT Vmean: 0.59 m/s | |LVOT VTI: 18.00 cm | |MV A Kehinde: 0.44 m/s | |MV Dec Howard: 3.91 m/s2 | |MV DecT: 187.42 ms | |MV E Kehinde: 0.73 m/s | |MV E/A Ratio: 1.65 | |MV PHT: 54.35 ms | |MVA By PHT: 4.04 cm2 | |TR maxP.14 mmHg | |TR Vmax: 3.35 m/s | |RV s': 0.12 m/s | | | |Earth Mover: DBS | |Authenticated by: Sera Godwin | |Report Date/Time: 10-06-2018 15:40:22 | | | |IMPRESSION: | |1. The left ventricle is normal in size, wall thickness and systolic function EF 55-60% | |2. The right ventricle is moderately enlarged with normal systolic function. | |3. Moderate mitral regurgitation with severely dilated left atrium. | |4. Mild tricuspid regurgitation and moderate pulmonary hypertension. | |5. There is no pericardial effusion. | + + documented in this encounter Visit Diagnoses Not on filedocumented in this encounter"
--- OUTSIDE RECORDS SUMMARY | ~2020-02-22 | XMS | Encounter Summary ---
Demographics + + + | Address | [address] | | | [place] [address] | + + + | Home Phone | | + + + | Preferred Language | Unknown | + + + | Marital Status | | + + + | Catholic Affiliation | 1077 | + + + | Race | White | + + + | Ethnic Group | Not or | + + + Author + + + | Author | [facility] | | | and [place] | + + + | Organization | [facility] | | | and [...] ECON | Unknown | | | in [facility]) | | | | + + +---------+ + Care Team Providers + +------+ + | Care Pass Worker Name | Role | Phone | + +------+ + PCP | Unavailable | + +------+ + Encounter Details +--------+ + + + + | Date | Type | Department | Care Team | Description | +--------+ + + + + | 10/27/ | Hospital | [facility] | Conversion | Pain | | 2013 | Encounter | CONVERSION [address] | Transaction, | | | | | [address] | Provider Unknown | | | | | [place], [place] | [phone] | | | | | [address] | | | | | | [phone] | | | +--------+ + + + [...] [address] | | | | | | [place] [address] | | | | | | [phone] | | | | | | | | +--------+---------+ + + + documented as of this encounter Procedures + +--------+ + + + | Procedure Name | Priori | Date/Time | Associated Diagnosis | Comments | | | ty | | | | + +--------+ + + + | CT LUMBAR SPINE WO | Routin | 10/23/2012 | | Results for this | | CONTRAST | e | 11:14 AM | | procedure are in the | | | | PDT | | results section. | + +--------+ + + + documented in this encounter Results CT Lumbar Spine wo Contrast (10/23/2012 11:14 AM PDT) + + | Specimen | + + | | + + + + + | Narrative | Performed At | + + + | This is a non-reportable procedure without a radiologist report and | | | is used for image storage only | | + + + + + | Procedure Note | + + | Armando Rdz Luli - 02/26/2019 10:09 PM PDT This is a non-reportable procedure | | without a radiologist report and isused for image storage only | + + documented in this encounter Visit Diagnoses + + | Diagnosis | + + | Pain Generalized pain | + + documented in this encounter"
--- OUTSIDE RECORDS SUMMARY | ~2020-02-22 | XMS | Encounter Summary ---
Demographics + + + | Address | [address] | | | [place] [address] | + + + | Home Phone | | + + + | Preferred Language | Unknown | + + + | Marital Status | | + + + | Episcopal Affiliation | [id number] | + + + | Race | White | + + + | Ethnic Group | Not or | + + + Author + + + | Author | [facility] | | | and [place] | + + + | Organization | [facility] | | [...] ECON | Unknown | | | in [facility]) | | | | + + +---------+ + Care Team Providers + +------+ + | Care Beautician Apprentice Name | Role | Phone | + [...] Description | +--------+---------+ + + + | 05/06/ | Office | [facility] | Jody Lebron | Coronary artery | | 2019 | Visit | [facility] | [address] | disease of [place] | | | | [address] | [place] [address] [address] | artery [place] | | | | [address] | [place] [address] | heart with stable | | | | [place] | [phone] | angina pectoris | | | | [phone] | | (HCC) (Primary Dx); | | | | [phone] | | History of non-ST | | | | | | elevation myocardial | | | | | | infarction | | | | | | (NSTEMI); Chronic | | | | | | diastolic heart | | | | | | failure (HCC); | | | | | | Persistent atrial | | | | | | fibrillation ([facility]); | | | | | | Chronic | | | | | | anticoagulation; | | | | | | Encounter for | | | | | | monitoring diuretic | | | | | | therapy; Essential | | | | | | hypertension; Mixed | | | | | | hyperlipidemia; | | | | | | Moderate mitral | | | | | | regurgitation by | | | | | | prior | | | | | | echocardiogram; | | | | | | Stage 3 chronic | | | | | | kidney disease | | | | | | ([facility]); Other | | | | | | secondary pulmonary | | | | | | hypertension ([facility]); | | | | | | 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 | | | | | | disease ([facility]); | | | | | | Chronic obstructive | | | | | | pulmonary disease, | | | | | | unspecified COPD | | | | | | type ([facility]); Chronic | | | | | | respiratory failure | | | | | | with hypoxia, on | | | | | | home O2 therapy | | | | | | ([facility]) | +--------+---------+ + + + Social History [...] | | | + +---+---+---+ + + + | Sex Assigned at | Date Recorded | | | | + + + | Not on file | | + + + documented as of this encounter Last Filed Vital Signs + + + + + | Vital Sign | Reading | Time Taken | Comments | + + + + + | Blood Pressure | 104/68 | 05/06/2019 9:04 AM | | | | | PDT | | + + + + + | Pulse | 91 | 05/06/2019 9:04 AM | | | | | PDT | | + + + + + | Temperature | - | - | | + + + + + | Respiratory Rate | - | - | | + + + + + | Oxygen Saturation | 98% | 05/06/2019 9:04 AM | | | | | PDT | | + + + + + | Inhaled Oxygen | - | - | | | Concentration | | | | + + + + + | Weight | 67.8 kg (149 lb 8 | 05/06/2019 9:04 AM | | | | oz) | PDT | | + + + + + | Height | 175.3 cm (5' 9") | 05/06/2019 9:04 AM | | | | | PDT | | + + + + + | Body Mass Index | 22.08 | 05/06/2019 9:04 AM | | | | | PDT | | + + + + + documented in this encounter Patient Instructions Patient Instructions Jody Lebron FNP - 05/06/2019 9:00 AM PDTI made these change s to medications : stop metoprolol after 2nd dose today, and tomorrow night start Bisoprolol 2.5 mg , and have them call me if heart rate still > [address] Keating back in May 19, and see me 6 weeks after that documented in this encounter Progress Notes Jody Lebron FNP - 05/06/2019 9:00 AM PDTFormatting of this note might be differe nt from the original. Date of visit: 05/06/2019 Primary Care Physician: Nalini Jones MD CHIEF COMPLAINT: Chief Complaint Patient presents with Follow-up, Office Visit One month HISTORY OF PRESENT ILLNESS: Jose Ayala is an 89 year old man who is here today follow-up on his respons e to torsemide 10 mg twice daily which I had ordered when I saw him last on March 29 for weight gain and shortness of breath. He is with his son Blayne, today , who contributed to history , and is his primary caregive r, though he also lives in assisted living at [facility]. He was previously seen patient of and last seen by him 10/16/2017, and also has b een seen by heart failure TROUSSEAU CONSULTANT, Cornelia Escudero , last on 01/2018. He has now established care with Dr. Keating , who is his local primary frog shaker, an charo last seen by him in 11/11/2018. I saw him last 03/29/2019 when I increased his Torsemide to 10 mg at 8 am and 2 pm, and orde red him a BMP. Today, I reviewed all [...] on Eliquis 2.5 mg twice daily for [id number] VASC score is 5 (CHF, a ge, vasc dis,) . Though previously documented as valvular atrial fibrillation , he has not undergone valve surgery, either repair or replacement, and does not have severe rheumatic mitral stenosis. His current and previous testing and procedures are detailed below. He was previously hospitalized on November 1405/2018 until December 022017 at [facility] for increa sed dyspnea, edema, and back pain due to acute heart failure and new T12 compression fractur e, and heart failure exacerbation likely secondary to stopping diuretic and fall. He was also hospitalized [facility] on June 10 - June 14 for acute decompensa tion of chronic diastolic heart failure and iron deficiency anemia as well as exacerbation o f his chronic respiratory failure, and chronic A. fib . He was admitted again to [facility] September 30 - October 04, 2018 after a ground-level fall at home with injury to his left shoulder, predominantly soft tissue, symptomatic maurice cardia, hypotension, acute kidney injury,in the setting of chronic UTI. His current and previous testing and procedures are detailed below. When last seen by Dr. Keating, he continued spironolactone 25 mg twice daily, continue torsemide 10 mg daily and recommended it could be increased to 20 mg as needed, continue met oprolol 12.5 mg twice daily, and continued Eliquis 2.5 mg twice daily. He reports today that he continues to feel better, and is now able to walk the .25 miles around his facility twice , and his weight has been stable at his facility ,and seems to hav e settled down at 146-147 lbs, which I think is due more to better appetite than fluid, as e uvolemic ,and BNP now 154 on recent labs. He still as ongoing HERNANDEZ with chronic [...] current indication for a pacemaker as he miss ed maintained a sinus rhythm in the 60's without any bradycardia, or pauses, or blocks.. REVIEW OF SYSTEMS: Negative except for pertinent items noted in HPI. Constitutional: reports improved energy, activity tolerance, and appetite.Denies unexplain ed weight loss. Appetite is good. Weight is Decreased 13 lbs since 11/14/2017 when weighed 162 lbs, [...] fractures, and O2 and tolerates. Lives in [facility]. Son lives nearby. Use d to live in [place] [facility] Medications Prior to Visit Medication Sig Dispense Refill acetaminophen (TYLENOL) 500 mg tablet Take 500 mg by mouth every 4 (four) hours as need ed for Pain. apixaban (ELIQUIS) 2.5 mg tablet Take 1 tablet by mouth 2 (two) times daily. aspirin 81 MG tablet Take 81 mg by mouth daily. atorvaSTATin (LIPITOR) 10 mg tablet Take 1 tablet by mouth every morning. Calcium Carbonate-Vitamin D (OYST-DANIELLE-D 500 PO) Take 1 tablet by mouth qhs Coenzyme Q10 (COQ10) 200 MG CAPS Take 200 mg by mouth Daily. ferrous gluconate (FERGON) 324 (38 Fe) MG tablet Take 324 mg by mouth daily with breakf ast. MAGNESIUM PO Take 400 mg by mouth daily. metoprolol tartrate (LOPRESSOR) 25 mg tablet Take 0.5 tablets by mouth 2 (two) times da олег. Hold for HR< 50 bpm, or SBP< 100 mmHg mirabegron (MYRBETRIQ) 50 mg ER tablet Take 1 tablet by mouth daily. Multiple Vitamins-Minerals (CENTRUM SILVER) TABS one by mouth daily (Patient taking dif ferently: 1 tablet.) Multiple Vitamins-Minerals (PRESERVISION AREDS 2 PO) Take 1 capsule by mouth daily. MYRBETRIQ 25 MG ER tablet spironolactone (ALDACTONE) 25 mg tablet Take 25 [...] EXAM: Wt Readings from Last 3 Encounters: 05/06/19 67.8 kg (149 lb 8 oz) 03/29/19 67.7 kg (149 lb 4.8 oz) 12/02/17 68.8 kg (151 lb 9.6 oz) Temp Readings from Last 3 Encounters: 12/02/17 35.6 C (96.1 F) 11/14/17 36.7 C (98 F) BP Readings from Last 3 Encounters: 05/06/19 104/68 03/29/19 116/58 12/02/17 132/74 Pulse Readings from Last 3 Encounters: 05/06/19 91 03/29/19 54 12/02/17 83 Vital signs: 12/24/2018 Wt:143 Lbs. BP:110/56 . [...] GLUF 117 (A) 06/25/2018 BUN 20 06/25/2018 BCR 24.7 06/25/2018 EGFR 90 06/25/2018 Lab Results Component Value Date GLUF 117 (A) 06/25/2018 Lab Results Component Value Date BNP 194 (H) 11/11/2017 No results found for: TOTEPI CARDIAC PROCEDURES/IMAGING Last angiogram 12/01/2006:Severe coronary arteriosclerosis, with complete occlusion of o btuse marginal branch/ramus intermedius branch, and complete occlusion RCA. [id number] involvement of the rest of the system.Good [...] atrial fib is 73 bpm, old septal KS. Nonspecific ST and T-wave abnormalities. Stress heart [...] Valsalva, 41 mm. Mobile intra-arterial septum Echo: 11/12/2017:([facility]) . Atrial fib. EF 55-60 [...] te pulmonary hypertension, RVSP 50.90 mmHg. Trace NH. No pericardial effusion. IVC WNL, C [employer] normal. 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 Rate 92 bpm, QRS 92 ms, QTC 4 30 ms, wondering baseline, tracing personally reviewed by me E K10/19/2018: NS rhythm, PACs, A. fib at 85 bpm, NH 236 ms, QRS 94 ms, QTC 430 ms burt negrete personally reviewed by me, also had atrial fib with controlled ventricular response at 62 bpm captured when EKG tracing allowed to run LABS Labs: 03/31/2018: BMP: Sodium 139, potassium 3.9, chloride 95, glucose 96, BUN 20, creatinin e 0.69, GFR 109 Labs: 03/27/2018:( [facility]) CMP: Sodium 134, potassium 5.7, chloride [...] hematocrit 40.8, plate lets 298. Labs: 09/30/2018: [facility] ER: CMP: Sodium 131, potassium [...] 0.5, GFR 66, albumin 4.1. BNP 152. ASSESSMENT & PLAN: He was here today with his son to follow up on his response to torsemide 10 mg BID, and labs. He has problems as detailed below with significant co morbidities, and is a DNR/DNI. His labs performed 04/30/2019 are detailed above, and shows now almost normal BNP of 154 , which shows not fluid overloaded, and CMP normal except for mildly elevated BUN. He also has much improved activity tolerance as discussed in HPI, and better appetite, an d appears euvolemic today. I had previously thought his dry weight close to 136-138 lbs, but his weight has been sta ble since I saw him last at 146-147 lbs in [facility],and think now higher weight with incr eased muscle and calories. I reviewed his labs with him and his son, and discussed with him that he does not seem fl uid overloaded on current diuretics , and seems much improved overall. I am concerned today though his heart rate is more elevated, and also has been elevated at [facility], and BP more labile recently ;and I have stopped his metoprolol , and starte d him on Bisoprolol 2.5 mg qhs which should be held for heart rate less than 50, or systoli c blood pressure less than 100, which will also be a more cardiac specific beta nini for his severe pulmonary disease. I made no other changes to his cardiac medications today, and he should continue aspirin 81 mg daily for coronary artery disease, atorvastatin 10 mg nightly for hyperlipidemia, spir onolactone 25 mg twice daily for heart failure, and torsemide 10 mg at 8 AM and 2 PM for he art failure, and Eliquis 2.5 mg twice daily for stroke prevention. He should be on Tylenol only for pain, due to decreased renal function and increased risk of bleeding with NSAIDs and chronic anticoagulation. I have encouraged him to continue with his daily physical therapy with gentle daily walki ng of 15-30 minutes daily which he has been progressing well with He looked bright and alert today, and about the best that I had seen him, has not had an y recent hospitalizations . He can follow up with Dr. Keating May 19 on response to Bisoprolol, and I will see h im back in 6 weeks for ongoing monitoring of his heart failure, as has prevented hospitaliza tion since November 2018. 1. 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 History of non-ST elevation myocardial infarction (NSTEMI) 3. Chronic diastolic heart failure (HCC) 4. Persistent atrial fibrillation 5. Chronic anticoagulation 6. Encounter for monitoring diuretic therapy 7. Essential hypertension 8. Mixed hyperlipidemia 9. Moderate mitral regurgitation by prior echocardiogram 10. Stage 3 chronic kidney disease (HCC) 11. Other secondary pulmonary hypertension (HCC) 12. 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 Chronic obstructive pulmonary disease, unspecified COPD type (HCC) 14. Chronic respiratory failure with hypoxia, on home O2 therapy (HCC) No orders of the defined types were placed in this encounter. The following portions of the patient's history were personally reviewed by me and updated as appropriate: EKG tracings, other specialty provider and PCP notes,any Hospital admission and discharge summaries, any ER records , current and previous cardiac testing and procedure reports and d korina, medication and vital sign record from Megan Parada personally reviewed by me. Allergies, current medications.labs Family history, past medical history, past social history, past surgical history. Problem list. Taylor BARRETO [facility] Cardiology 05/06/2019 docum ented in this encounter Plan of Treatment +--------+---------+ + + + | Date | Type | Specialty | Care Team | Description | +--------+---------+ + + + | 06/22/ | Office | Cardiology | Jody Lebron | | | 2020 | Visit | | [address] | | | | | | [address] | | | | | | [place] [address] | | | | | | [phone] | | | | | | | | +--------+---------+ + + + documented as of this encounter Visit Diagnoses + + | Diagnosis | + + | Coronary artery disease of [place] artery of [place] heart with stable angina pectoris | | (HCC) - Primary | + + | History of non-ST elevation myocardial infarction (NSTEMI) Old myocardial infarction | + + | Chronic diastolic heart failure (HCC) Chronic diastolic heart failure | + + | Persistent atrial fibrillation ([facility]) Atrial fibrillation | + + | Chronic anticoagulation Encounter for long-term (current) use of anticoagulants | + + | Encounter for monitoring diuretic therapy Encounter for therapeutic drug monitoring | + + | Essential hypertension Unspecified essential hypertension | + + | Mixed hyperlipidemia | + + | Moderate mitral regurgitation by prior echocardiogram Mitral valve disorders | + + | Stage 3 chronic kidney disease (HCC) | + + | Other secondary pulmonary hypertension (HCC) | + + | 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
--- OUTSIDE RECORDS SUMMARY | ~2020-02-22 | XMS | Encounter Summary ---
Demographics + + + | Address | [address] | | | [place] [address] | + + + | Home Phone | | + + + | Preferred Language | Unknown | + + + | Marital Status | | + + + | Taoism Affiliation | 1077 | + + + | Race | White | + + + | Ethnic Group | Not or | + + + Author + + + | Author | [facility] | | | and [place] | + + + | Organization | [facility] | | | [...] ECON | Unknown | | | in [facility]) | | | | + + +---------+ + Care Team Providers + +------+ + | Care Welder/Installer Name | Role | Phone | + +------+ + | Nalini Jones MD | PCP | | + +------+ + Encounter Details +--------+ + + + + | Date | Type | Department | Care Team | Description | +--------+ + + + + | 04/23/ | Orders Only | [facility] | Enzo Knox, | | | 2016 | | [place] | [address] | | | | | [address] | [place] [address] | | | | | [place] | [phone] | | | | | [address] | | | | | | [phone] | | | +--------+ + + + [...] TERAN | | | | | | [place] [address] | | | | | | [phone] | | | | | | | | +--------+---------+ + + + documented as of this encounter Procedures + +--------+ + + + | Procedure Name | Priori | Date/Time | Associated Diagnosis | Comments | | | ty | | | | + +--------+ + + + | ECHO COMPLETE | Routin | 04/23/2017 | | Results for this | | | e | 2:18 PM | | procedure are in the | | | | PDT | | results section. | + +--------+ + + + documented in this encounter Results ECHO Complete (04/23/2017 2:18 PM PDT) + + | Specimen | + + | | + + + + + | Impressions | Performed At | + + + | 1. Overall left ventricular systolic function is normal with, an EF | | | between 60 - 65 %. 2. There is moderate concentric left ventricular | | | hypertrophy. 3. There is mild aortic regurgitation. 4. Moderate | | | mitral regurgitation is present. 5. Moderate tricuspid regurgitation | | | present. 6. There is moderate pulmonary hypertension. 7. 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 | | + + + + + + | Narrative | Performed At | + + + | Patient Name: RUDY CASAREZ Date of : 1930 | | | Performing Physician: Enzo Knox MD, | | | FACC, FACP, FASNC | | | | | | INDICATIONS afib CONCLUSIONS 1. | | | Overall left ventricular systolic function is normal with, an EF | | | between 60 - 65 %. 2. There is moderate concentric left ventricular | | | hypertrophy. 3. There is mild aortic regurgitation. 4. Moderate | | | mitral regurgitation is present. 5. Moderate tricuspid regurgitation | | | present. 6. There is moderate pulmonary hypertension. 7. 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 FINDINGS -------- ECG rhythm: | | | Atrial fibrillation. Study: A 2-dimensional transthoracic | | | echocardiogram with m-mode, spectral and color flow Doppler was | | | perfomed. Study: This was a technically adequate study. Left | | | Ventricle: Overall left ventricular systolic function is normal with, | | | an EF between 60 - 65 %. Left Ventricle: The left ventricle cavity | | | size is normal. Left Ventricle: There is moderate concentric left | | | ventricular hypertrophy. Left Ventricle: Poor tissue doppler signal | | | prevents accurate assessment of diastolic function. Right Ventricle: | | | The right ventricle is severely enlarged measuring >4.1 cm. Left | | | Atrium: The left atrium is markedly enlarged. Right Atrium: The right | | | atrium is markedly enlarged. Aortic Valve: The aortic valve is | | | trileaflet and appears structurally normal. Aortic Valve: There is | | | mild aortic regurgitation. Aortic Valve: There is no evidence of | | | aortic stenosis. Mitral Valve: The mitral valve is normal. Mitral | | | Valve: Moderate mitral regurgitation is present. Tricuspid Valve: The | | | tricuspid valve appears structurally normal. Tricuspid Valve: | | | Moderate tricuspid regurgitation present. Tricuspid Valve: There is | | | moderate pulmonary hypertension. Tricuspid Valve: The right | | | ventricular systolic pressure (pulmonary artery systolic pressure), as | | | measured by Doppler, is 50.47mmHg. Pulmonic Valve: The pulmonic | | | valve is normal. Pericardium: There is no pericardial effusion. | | | IVC/Hepatic Veins: The IVC is normal size (1.5-2.5cm) and collapses | | | >50% with sniff, consistent with central venous pressures of 5-10mmHg. | | | Aorta: The aortic root is dilated measuring 4.0cm. Mass: No mass | | | visualized Thrombus: No clot visualized Septum: No ASD observed. | | | Septum: No VSD observed. MEASUREMENTS Ao asc: | | | 3.71 cm Ao sinus: 4.05 cm IVC: 2.34 cm EDV(Teich): 103.12 | | | ml IVSd: 1.44 cm LVIDd: 4.71 cm LVPWd: 1.49 cm LVOT Diam: | | | 2.43 cm %FS: 33.05 % EF(Teich): 61.58 % ESV(Teich): | | | 39.60 ml LVIDs: 3.15 cm SV(Teich): 63.51 ml RVIDd: 4.29 cm | | | LVEF MOD A2C: 60.06 % SV MOD A2C: 39.89 ml LVEF MOD A4C: | | | 66.55 % SV MOD A4C: 61.73 ml EF Biplane: 64.25 % LVEDV MOD | | | BP: 79.90 ml LVESV MOD BP: 28.56 ml LVEDV MOD A2C: 66.41 ml | | | LVLd A2C: 6.62 cm LVEDV MOD A4C: 92.75 ml LVLd A4C: 7.18 | | | cm LVESV MOD A2C: 26.52 ml LVLs A2C: 5.93 cm LVESV MOD A4C: | | | 31.02 ml LVLs A4C: 5.96 cm LAESV(A-L): 175.68 ml LAESV | | | Index (A-L): 90.09 ml/m2 LAAs A2C: 42.26 cm2 LAESV A-L A2C: | | | 203.39 ml LALs A2C: 7.45 cm LAAs A4C: 35.80 cm2 LAESV A-L | | | A4C: 148.83 ml LAESV MOD A4C: 140.90 ml LALs A4C: 7.31 cm | | | RAAs: 32.35 cm2 RAESV A-L: 134.91 ml RAESV MOD: 140.79 ml | | | RALs: 6.58 cm Ao Diam: 3.91 cm Ao/LA: 0.51 LA Diam: | | | 7.56 cm LA/Ao: 1.93 TAPSE: 1.58 cm AR Dec Ralls: 2.29 m/s2 | | | AR Dec Time: 1909.57 ms AR maxP.85 mmHg AR PHT: | | | 553.77 ms AR Vmax: 4.38 m/s AV Env.Ti: 251.60 ms AV maxPG: | | | 7.91 mmHg AV meanP.07 mmHg AV Vmax: 1.40 m/s AV Vmean: | | | 0.94 m/s AV VTI: 23.83 cm EFRAÍN Vmax: 3.02 cm2 EFRAÍN (VTI): | | | 2.92 cm2 AVAI Vmax: 0.00 cm2/m2 AVAI (VTI): 0.00 cm2/m2 LVOT | | | Env.Ti: 222.31 ms LVOT maxP.33 mmHg LVOT meanP.01 | | | mmHg LVSI Dopp: 35.72 ml/m2 LVSV Dopp: 69.65 ml LVOT Vmax: | | | 0.90 m/s LVOT Vmean: 0.67 m/s LVOT VTI: 14.93 cm MR maxPG: | | | 85.14 mmHg MR meanP.02 mmHg MR Vmax: 4.61 m/s MR | | | Vmean: 3.68 m/s MR VTI: 131.43 cm MV E Kehinde: 0.92 m/s MV | | | Dec Ralls: 4.93 m/s2 MV DecT: 183.10 ms MV E Kehinde: 0.89 m/s | | | MV DecT: 145.02 ms PV maxP.45 mmHg PV Vmax: 1.05 m/s | | | RAP: 10 mmHg RV S': 0.08 m/s RVSP: 50.46 mmHg TR maxPG: | | | 40.46 mmHg TR Vmax: 3.14 m/s Band Saw Marker: [id number] Authenticated | | | by: Enzo Knox MD, FACC, FACP, FASNC Report Date/Time: 04-26-2017 | | | 15:19:7 | | + + + + + | Procedure Note | + + | [place], Rad Conversion - 02/25/2019 7:08 PM PDT Patient Name: Carlos CASAREZ of | | : 1930 Performing Physician: Enzo Knox MD, FAC, | | FACP, | | FASNC INDICATIONS--------- | | --afib CONCLUSIONS 1. Overall left ventricular systolic function is normal | | with, an EF between 60 - 65 %.2. There is moderate concentric left ventricular | | hypertrophy.3. There is mild aortic regurgitation.4. Moderate mitral regurgitation is | | present.5. Moderate tricuspid regurgitation present.6. There is moderate pulmonary | | hypertension.7. The aortic root is dilated measuring 4.0cm. FINDINGS--------ECG rhythm: | | Atrial fibrillation.Study: A 2-dimensional transthoracic echocardiogram with m-mode, | | spectral and color flow Doppler was perfomed.Study: This was a technically adequate | | study.Left Ventricle: Overall left ventricular systolic function is normal with, an EF | | between 60 - 65 %.Left Ventricle: The left ventricle cavity size is normal.Left | | Ventricle: There is moderate concentric left ventricular hypertrophy.Left Ventricle: | | Poor tissue doppler signal prevents accurate assessment of diastolic function.Right | | Ventricle: The right ventricle is severely enlarged measuring >4.1 cm.Left Atrium: The | | left atrium is markedly enlarged.Right Atrium: The right atrium is markedly | | enlarged.Aortic Valve: The aortic valve is trileaflet and appears structurally | | normal.Aortic Valve: There is mild aortic regurgitation.Aortic Valve: There is no | | evidence of aortic stenosis.Mitral Valve: The mitral valve is normal.Mitral Valve: | | Moderate mitral regurgitation is present.Tricuspid Valve: The tricuspid valve appears | | structurally normal.Tricuspid Valve: Moderate tricuspid regurgitation present.Tricuspid | | Valve: There is moderate pulmonary hypertension.Tricuspid Valve: The right ventricular | | systolic pressure (pulmonary artery systolic pressure), as measured by Doppler, is | | 50.47mmHg.Pulmonic Valve: The pulmonic valve is normal.Pericardium: There is no | | pericardial effusion.IVC/Hepatic Veins: The IVC is normal size (1.5-2.5cm) and collapses | | >50% with sniff, consistent with central venous pressures of 5-10mmHg.Aorta: The aortic | | root is dilated measuring 4.0cm.Mass: No mass visualizedThrombus: No clot | | visualizedSeptum: No ASD observed.Septum: No VSD observed. MEASUREMENTS Ao | | asc: 3.71 cmAo sinus: 4.05 cmIVC: 2.34 cmEDV(Teich): 103.12 mlIVSd: 1.44 | | cmLVIDd: 4.71 cmLVPWd: 1.49 cmLVOT Diam: 2.43 cm%FS: 33.05 %EF(Teich): 61.58 | | %ESV(Teich): 39.60 mlLVIDs: 3.15 cmSV(Teich): 63.51 mlRVIDd: 4.29 cmLVEF MOD | | A2C: 60.06 %SV MOD A2C: 39.89 mlLVEF MOD A4C: 66.55 %SV MOD A4C: 61.73 mlEF | | Biplane: 64.25 %LVEDV MOD BP: 79.90 mlLVESV MOD BP: 28.56 mlLVEDV MOD A2C: 66.41 | | mlLVLd A2C: 6.62 cmLVEDV MOD A4C: 92.75 mlLVLd A4C: 7.18 cmLVESV MOD A2C: 26.52 | | mlLVLs A2C: 5.93 cmLVESV MOD A4C: 31.02 mlLVLs A4C: 5.96 cmLAESV(A-L): 175.68 | | mlLAESV Index (A-L): 90.09 ml/m2LAAs A2C: 42.26 [id number] A-L A2C: 203.39 mlLALs | | A2C: 7.45 cmLAAs A4C: 35.80 [id number] A-L A4C: 148.83 mlLAESV MOD A4C: 140.90 | | mlLALs A4C: 7.31 cmRAAs: 32.35 [id number] A-L: 134.91 mlRAESV MOD: 140.79 mlRALs: | | 6.58 cmAo Diam: 3.91 cmAo/LA: 0.51LA Diam: 7.56 cmLA/Ao: 1.93TAPSE: 1.58 | | cmAR Dec Ralls: 2.29 m/s2AR Dec Time: 1909.57 msAR maxP.85 mmHgAR PHT: | | 553.77 msAR Vmax: 4.38 m/Roxy Env.Ti: 251.60 msAV maxP.91 mmHgAV meanP.07 | | mmHgAV Vmax: 1.40 m/Roxy Vmean: 0.94 m/Roxy VTI: 23.83 cmAVA Vmax: 3.02 cm2AVA | | (VTI): 2.92 [id number] Vmax: 0.00 cm2/m2AVAI (VTI): 0.00 cm2/m2LVOT Env.Ti: 222.31 | | msLVOT maxP.33 mmHgLVOT meanP.01 mmHgLVSI Dopp: 35.72 ml/m2LVSV Dopp: | | 69.65 mlLVOT Vmax: 0.90 m/sLVOT Vmean: 0.67 m/sLVOT VTI: 14.93 cmMR maxP.14 | | mmHgMR meanP.02 mmHgMR Vmax: 4.61 m/sMR Vmean: 3.68 m/sMR VTI: 131.43 cmMV | | E Kehinde: 0.92 m/sMV Dec Ralls: 4.93 m/s2MV DecT: 183.10 msMV E Kehinde: 0.89 m/sMV | | DecT: 145.02 msPV maxP.45 mmHgPV Vmax: 1.05 m/sRAP: 10 mmHgRV S': 0.08 | | m/sRVSP: 50.46 mmHgTR maxP.46 mmHgTR Vmax: 3.14 m/s Band Saw Marker: | | RKAuthenticated by: Enzo Knox MD, FACC, FACP, FASNCReport Date/Time: 04-26-2017 | | 15:19:7 IMPRESSION: 1. Overall left ventricular systolic function is normal with, an EF | | between 60 - 65 %.2. There is moderate concentric left ventricular hypertrophy.3. There | | is mild aortic regurgitation.4. Moderate mitral regurgitation is present.5. Moderate | | tricuspid regurgitation present.6. There is moderate pulmonary hypertension.7. The | | aortic root is dilated measuring 4.0cm. | |IVC: 2.34 cm | |EDV(Teich): 103.12 ml | |IVSd: 1.44 cm | |LVIDd: 4.71 cm | |LVPWd: 1.49 cm | |LVOT Diam: 2.43 cm | |%FS: 33.05 % | |EF(Teich): 61.58 % | |ESV(Teich): 39.60 ml | |LVIDs: 3.15 cm | |SV(Teich): 63.51 ml | |RVIDd: 4.29 cm | |LVEF MOD A2C: 60.06 % | |SV MOD A2C: 39.89 ml | |LVEF MOD A4C: 66.55 % | |SV MOD A4C: 61.73 ml | |EF Biplane: 64.25 % | |LVEDV MOD BP: 79.90 ml | |LVESV MOD BP: 28.56 ml | |LVEDV MOD A2C: 66.41 ml | |LVLd A2C: 6.62 cm | |LVEDV MOD A4C: 92.75 ml | |LVLd A4C: 7.18 cm | |LVESV MOD A2C: 26.52 ml | |LVLs A2C: 5.93 cm | |LVESV MOD A4C: 31.02 ml | |LVLs A4C: 5.96 cm | |LAESV(A-L): 175.68 ml | |LAESV Index (A-L): 90.09 ml/m2 | |LAAs A2C: 42.26 cm2 | |LAESV A-L A2C: 203.39 ml | |LALs A2C: 7.45 cm | |LAAs A4C: 35.80 cm2 | |LAESV A-L A4C: 148.83 ml | |LAESV MOD A4C: 140.90 ml | |LALs A4C: 7.31 cm | |RAAs: 32.35 cm2 | |RAESV A-L: 134.91 ml | |RAESV MOD: 140.79 ml | |RALs: 6.58 cm | |Ao Diam: 3.91 cm | |Ao/LA: 0.51 | |LA Diam: 7.56 cm | |LA/Ao: 1.93 | |TAPSE: 1.58 cm | |AR Dec Ralls: 2.29 m/s2 | |AR Dec Time: 1909.57 ms | |AR maxP.85 mmHg | |AR PHT: 553.77 ms | |AR Vmax: 4.38 m/s | |AV Env.Ti: 251.60 ms | |AV maxP.91 mmHg | |AV meanP.07 mmHg | |AV Vmax: 1.40 m/s | |AV Vmean: 0.94 m/s | |AV VTI: 23.83 cm | |EFRAÍN Vmax: 3.02 cm2 | |EFRAÍN (VTI): 2.92 cm2 | |AVAI Vmax: 0.00 cm2/m2 | |AVAI (VTI): 0.00 cm2/m2 | |LVOT Env.Ti: 222.31 ms | |LVOT maxP.33 mmHg | |LVOT meanP.01 mmHg | |LVSI Dopp: 35.72 ml/m2 | |LVSV Dopp: 69.65 ml | |LVOT Vmax: 0.90 m/s | |LVOT Vmean: 0.67 m/s | |LVOT VTI: 14.93 cm | |MR maxP.14 mmHg | |MR meanP.02 mmHg | |MR Vmax: 4.61 m/s | |MR Vmean: 3.68 m/s | |MR VTI: 131.43 cm | |MV E Kehinde: 0.92 m/s | |MV Dec Ralls: 4.93 m/s2 | |MV DecT: 183.10 ms | |MV E Kehinde: 0.89 m/s | |MV DecT: 145.02 ms | |PV maxP.45 mmHg | |PV Vmax: 1.05 m/s | |RAP: 10 mmHg | |RV S': 0.08 m/s | |RVSP: 50.46 mmHg | |TR maxP.46 mmHg | |TR Vmax: 3.14 m/s | | | |Band Saw Marker: RK | |Authenticated by: Enzo Knox MD, FACC, FACP, [facility] | |Report Date/Time: 04-26-2017 15:19:7 | | | |IMPRESSION: | |1. Overall left ventricular systolic function is normal with, an EF between 60 - 65 %. | |2. There is moderate concentric left ventricular hypertrophy. | |3. There is mild aortic regurgitation. | |4. Moderate mitral regurgitation is present. | |5. Moderate tricuspid regurgitation present. | |6. There is moderate pulmonary hypertension. | |7. The aortic root is dilated measuring 4.0cm. | + + documented in this encounter Visit Diagnoses Not on filedocumented in this encounter"
--- OUTSIDE RECORDS SUMMARY | ~2020-02-22 | XMS | Encounter Summary ---
Demographics + + + | Address | [address] | | | [place] [address] | + + + | Home Phone | | + + + | Preferred Language | Unknown | + + + | Marital Status | | + + + | Church Affiliation | 1077 | + + + | Race | White | + + + | Ethnic Group | Not or | + + + Author + + + | Author | [facility] | | | and [place] | + + + | Organization | [facility] | | [...] ECON | Unknown | | | in [facility]) | | | | + + +---------+ + Care Team Providers + +------+ + | Care Aircraft Engine Mechanic Supervisor Name | Role | Phone | + +------+ + PCP | Unavailable | + +------+ + Encounter Details +--------+ + + + + | Date | Type | Department | Care Team | Description | +--------+ + + + + | 11/14/ | Hospital | [facility] | Harmony Byrne | | | 2018 - | Encounter | [facility] | MD Christof[address] | | | | | INPATIENT | Dr Garcia | | | 12/02/ | | REHABILIT[address] | [place], [place] | | | [address] | | [address] | [address] | | | | | [place], [place] | [phone] | | | | | [address] | | | | | | [phone] | | | +--------+ + + + [...] + + + | Blood Pressure | 132/74 | 12/02/2017 8:38 AM | | | | | PDT | | + + + + + | Pulse | 83 | 12/02/2017 8:38 AM | | | | | PDT | | + + + + + | Temperature | 35.6 C (96.1 F) | 12/02/2017 8:38 AM | | | | | PDT | | + + + + + | Respiratory Rate | 18 | 12/02/2017 8:38 AM | | | | | PDT | | + + + + + | Oxygen Saturation | - | - | | + + + + + | Inhaled Oxygen | - | - | | | Concentration | | | | + + + + + | Weight | 68.8 kg (151 lb 9.6 | 12/02/2017 8:38 AM | | | | oz) | PDT | | + + + + + | Height | 175.3 cm (5' 9") | 12/02/2017 8:38 AM | | | | | PDT | | + + + + + | Body Mass Index | 22.39 | 12/02/2017 8:38 AM | | | | | PDT | | + + + + + documented in this encounter Discharge Summaries Wing Micah Jain MD - 12/02/2017 9:45 AM PDTFormatting of this note might be different from t robert original. Discharge Summaries by Wing Micah Jain MD at 12/02/17 0945 Author: Wing Micah Jain MD Service: (none) Author Type: Physician Filed: 12/03/17 1114 Date of Service: 12/02/17 0945 Status: Signed Hooking Machine Operator: Wing Micah Jain MD (Physician) [facility] Service: Physical Medicine & Rehab Discharge Summary Date of Admission: 11/14/2017 Date of Discharge: 12/02/2017 Discharge Provider: Wing Demetra Jain MD Treatment Team: Admitting Provider: Harmony Byrne MD Discharge Diagnoses: Active Problems: Compression fracture of lumbar vertebra (HCC) Lumbar degenerative disc disease T12 compression fracture (HCC) Chronic atrial fibrillation (HCC) COPD, severe (HCC) Chronic respiratory failure with hypoxia (HCC) Hypertension Resolved Problems: * No resolved hospital problems. * Final Diagnoses: Vertebral compression fracture Procedures: * No surgery found * Significant Diagnostic Studies: BRIEF HISTORY OF PRESENTATION: The patient is a 87 y.o. male with significant past medical history of Chronic atrial fibrillation, HFpEF, Oxygen dependent COPD, pulmonary hypertension, elevated right hemidiaph ragm, coronary artery disease, hepatitis, hypertension, previous history of lumbar compressi on fracture of L1 who presented with Increased dyspnea, edema, and back pain due to acute CHF and new T12 Compression Fx. Pt says that he sees Dr Knox, director of maintenance, and Dr Wei, municipal engineer. His medicatio ns were changed and his Lasix was increased but he stopped all Lasix a few days before admis kelin. He also fell 3 - 4 days before admission. He has Chronic Back pain but the pain marilyn me increasingly worse. He denies leg weakness or numbness. His edema and dyspnea also in creased so he came to [facility]. He was admitted and aggressively diuresed. Digoxin was resta rted to control his rate. He is unable to walk due to severe Lower Back pain and severe Dys pnea. Pt is on 2 L Oxygen 24 hrs a day at home. He has a chávez because he was unable to ge t out of bed and he was unable to urinate. RNs started chávez clamping routine prior to disc harge to IPR without success. No BM x 1 week. Pt plans to go home at discharge. HOSPITAL COURSE: The patient has been afebrile, vital signs have been stable. Patient's pain is adequa tely controlled. Protime was followed serially to adjust for Coumadin dosing. The patient was slightly low INR at Coumadin 3 mg daily. This was increased to 4 mg, but he was with si gnificantly elevated on the day of discharge. He was instructed to hold Coumadin. He will have home health services to follow with INR checks. Patient otherwise is eating adequately and sleeping well. The patient has made progress with IPR care. By discharge, his functional status is as fo adelaws: Activities of Daily Living: Yeyo feeds himself with modified independence. He performs jere oming tasks seated independently, standing with supervision/minimal assist. He bathes seated with moderate assist using grab bars and hand held shower head. He dresses his upper body w ith set up, supervision and cues to kait back brace. He dresses his lower body with moderate assist to supervision dependent upon pain and shortness of breath, using adaptive equipment . He toilets himself with moderate assist using walker and grab bars and elevated toilet sea t. He has been educated on kitchen retrieval and walker safety, as well as energy conservati on techniques/pacing. Standing tolerance: 1 min 45 seconds without arm support, up to 4 minutes using walker to r etrieve objects on floor Home safety assessment: indicating independent responses, patient should do well at h ome 30 second chair test: 6 stands indicating lower levels of ability (norm is 8-14 stands) Functional Transfers: Yeyo performs toilet and shower transfers with supervision using wal ker and grab bars. He is also able to transition out of bed while log rolling with supervisi on and cues to maintain his spinal precautions. Simulation of Yeyo's elevated bed height at family home requires assistance of single leg to return into bed while maintaining spinal p recautions. Yeyo is able to move from sitting to stance at his front wheeled walking with i mproving safety and requires cues less than 25% of the time. He has initiated family trainin g for car transfers with his son appropriately assisting in/out of the passenger side of the vehicle. Mobility: Yeyo has made good progress with his walking, now able to maintain upright stanc e at a front wheeled walker and complete a distance up to 54ft in a single trial with limita tions due to shortness of breath, fatigue and ongoing lumbar pain. Yeyo reports also feelin g that the legs will give out of him when he reaches increased distances and would like to c ontinue strengthening. Fall Risk: Yeyo continues to present with a high risk of falling due to limited activity t olerance, pain and decreased mobility in the presence of healing spinal fracture. Cognition/Communication:The patient has been focusing on functional memory strategies (e. g. Adding events to the calendar on his phone). At times Yeyo's memory skills are negativel y impacted by his pain, however he is able to communicate that with staff. He continues to w ant to use his phone as a means of organization for his events and appointments, even though it is hard for him to navigate. He may benefit from using speech to text. Hand writing information is not functional for him as he cannot read his handwriting. ST wi ll continue to trial different strategies to find which one would best suit his needs. Recom mend speech therapy to assess safety with activities of daily living reportedly at baseline, as well as support or new learning of safety precautions and functional strategies to use w hen he is at home. Past Medical History Diagnosis Date Acute on chronic diastolic heart failure (HCC) 11/12/2017 Atrial fibrillation (HCC) Drug-induced constipation 11/12/2017 Heart attack (HCC) Hepatitis History of stomach ulcers Hypertension Irregular heart beat Joint pain Unspecified visual disturbance Past Surgical History Procedure Laterality Date Diagnostic blocks Left 11-09-2015 Left diagnostic block of the dorsal ramus of L5 & lateral branches of S1,S2,S3 HERNIA REPAIR 1937 NECK SURGERY SACROILIAC JOINT INJECTION 11-24-12 Left SACROILIAC JOINT INJECTION 05-18-13 Left SACROILIAC JOINT INJECTION 10-14-2014 Left sacroiliac joint injection SACROILIAC JOINT INJECTION Left 03/28/2015 Left Sacroiliac Joint Injection SHOULDER SURGERY 2001 STOMACH SURGERY 1970 TOTAL KNEE ARTHROPLASTY 1999 Allergies Allergen Reactions Fentanyl Diarrhea No prescriptions prior to admission. DISCHARGE EXAM Vital Signs: BP 132/74 | Pulse 83 | Temp 96.1 F (35.6 C) (Axillary) | Resp 18 | Ht 1.753 m (5' 9 ") | Wt 68.8 kg (151 lb 9.6 oz) | SpO2 95% | BMI 22.39 kg/m Physical Exam HEENT: No Neck Lymph Nodes. [place]. . RESP: Pt speaks in short sentences due to dyspnea. Using Accessory respiratory muscles. Lungs Clear. Dull in R base. No wheezing. CV: + Murmur. No Gallop, Carotid Bruit, Pitting Edema. ABD: + BS. Nondistended. Nontender. No HSM. No rebound. SKIN: Bruising arms and legs. . Skin tear Left Elbow. EXT: Calves Nontender. Negative Rita's sign. MUSC: Bilat olecranon bursa swelling. Lumbar spine tender. Tender with movement. Could not test SLR or Maxime's test. NEURO: A&O x 3. PERRLA. CN 2 - 12 grossly normal except [place]. Reflexes symmetric. Sens ations of light touch and proprioception intact in all 4 extremities. DATA PLAN the patient will be discharge home with home health services. Disposition: Home Condition: Good Code Status: Prior No discharge procedures on file. Follow up: [facility] [address] [facility] [id number] Follow up A referral was made to [facility] for Physical and occupational therapy, bat h aid and a RN for medical management. Please call them within 24/48 hrs after your initial appointment with Dr. Jones so they can open services. Dr. Nalini Jones MD [facility] [address] [place] [address] Follow up You have a new primary care doctor appointment scheduled with Dr. Jones on December 5t h at 1:00 p.m.. Enzo Knox MD [address] [place] [address] Follow up You have a scheduled appointment with Dr. Knox on December 02 at 10:15.. [facility] [address] [facility] [address] Follow up They will call you on Friday12/02/17 with your scheduled appointment. Medication List START taking these medications ipratropium-albuterol 0.5-2.5 mg/3mL QTY: 360 mL Refills: 0 Commonly known as: DUO-NEB Take 3 mLs by nebulization every 4 (four) hours as needed. oxybutynin 5 MG tablet QTY: 180 tablet Refills: 0 Commonly known as: DITROPAN Take 2 tablets by mouth 3 (three) times daily. polyethylene glycol packet QTY: 14 each Refills: 0 Commonly known as: GLYCOLAX Take 17 g by mouth daily as needed for up to 3 days. senna 8.6 MG tablet QTY: 60 tablet Refills: 0 Commonly known as: SENOKOT Take 2 tablets by mouth nightly. warfarin 4 MG tablet QTY: 30 tablet Refills: 0 Commonly known as: COUMADIN Take 1 tablet by mouth Once daily-Coumadin. Notes to patient: DO NOT TAKE UNTIL NEW INR LAB DRAW CHANGE how you take these medications oxyCODONE 5 MG immediate release tablet QTY: 30 tablet Refills: 0 Commonly known as: ROXICODONE Take 1 tablet by mouth 4 (four) times daily. What changed: medication strength how much to take when to take this reasons to take this CONTINUE taking these medications albuterol 108 (90 Base) MCG/ACT inhaler QTY: 1 Inhaler Refills: 5 For diagnoses: Mixed restrictive and obstructive lung disease Commonly known as: PROAIR HFA Inhale 2 puffs into the lungs every 4 (four) hours as needed for Wheezing. aspirin 81 MG tablet Refills: 0 bisoprolol 5 MG tablet Refills: 0 Commonly known as: ZEBETA CoQ10 200 MG Caps Refills: 0 digoxin 0.125 MG tablet Refills: 0 Commonly known as: LANOXIN diltiazem 180 MG 24 hr capsule QTY: 90 capsule Refills: 3 Commonly known as: CARDIZEM CD Take 1 capsule by mouth daily. doxazosin 2 MG tablet Refills: 0 Commonly known as: CARDURA furosemide 40 MG tablet Refills: 0 Commonly known as: LASIX Take 1 tablet by mouth daily. lisinopril 2.5 MG tablet Refills: 0 Commonly known as: ZESTRIL multivitamin with minerals tablet Refills: 0 Oxygen (outpatient therapy) QTY: 1 Units Refills: 0 For diagnoses: Chronic respiratory failure with hypoxia Start oxygen on exertion/ambulation at __ LPM via nasal cannula, and at night at __ LPM. Pl s evaluate for conserving device. Pls provide home concentrator and portable oxygen system. simvastatin 40 MG tablet Refills: 0 Commonly known as: ZOCOR spironolactone 25 MG tablet Refills: 0 Commonly known as: ALDACTONE umeclidinium-vilanterol 62.5-25 MCG/INH inhaler QTY: 3 each Refills: 3 For diagnoses: Mixed restrictive and obstructive lung disease Commonly known as: ANORO ELLIPTA Inhale 1 puff into the lungs daily. You might also be taking other medications not listed above. If you have questions about an y of your other medications, talk to the person who prescribed them or your Primary Care Pro vider. STOP taking these medications metaxalone 800 MG tablet Commonly known as: SKELAXIN oxyCODONE-acetaminophen 10-325 MG per tablet Commonly known as: PERCOCET Where to Get Your Medications These medications were sent to [facility] - [address], [facility] [address] umeclidinium-vilanterol 62.5-25 MCG/INH inhaler You can get these medications from any pharmacy Bring a paper prescription for each of these medications ipratropium-albuterol 0.5-2.5 mg/3mL oxybutynin 5 MG tablet oxyCODONE 5 MG immediate release tablet polyethylene glycol packet senna 8.6 MG tablet warfarin 4 MG tablet Discharge took 60 minutes, to include final examination, discussion of admission, and prepa ration of prescriptions, instructions for on-going care, follow-up and documentation of disc harge summary. Wing Demetra Jain MD 12/03/2017 documented in this enco unter Medications at Time of Discharge + + [...] + + +---------+ + + | | Inhale 1 puff into | | 0 | 11/15/19 | | | umeclidinium-vilante | the lungs daily. | | | 18 | | | rol (ANORO ELLIPTA) | | | | | | | 62.5-25 mcg/puff | | | | | | | inhaler | | | | | | + [...] + + documented as of this encounter Progress Notes Luli Sun, Provider Unknown - 12/02/2017 10:16 AM PDTFormatting of this note m ight be different from the original. Progress Notes by Marisol Tyler RN at 12/02/17 1016 Author: Marisol Tyler RN Service: (none) Author Type: Registered Nurse Filed: 12/02/17 1017 Date of Service: 12/02/17 1016 Status: Signed Hooking Machine Operator: Marisol Tyler RN (Registered Nurse) Provided discharge education to patient and son. Provided them with AVS and prescriptions. Told them to call if further questions arise. No further questions at this time. onver kelin Sun, Provider Unknown - 12/02/2017 9:45 AM PDT Case Management by RONNELL Rangel at 12/02/17 0945 Author: RONNELL Rangel Service: (none) Author Type: Government Property Inspector Filed: 12/03/17 1156 Date of Service: 12/02/17944 Status: Signed Hooking Machine Operator: RONNELL Rangel (Government Property Inspector) DC Summary faxed to [facility] onver kelin Transaction, Provider Unknown - 12/02/2017 9:45 AM PDT Case Management by RONNELL Rangel at 12/02/17 0945 Author: RONNELL Rangel Service: (none) Author Type: Government Property Inspector Filed: 12/03/17 1202 Date of Service: 12/02/17944 Status: Addendum Hooking Machine Operator: RONNELL Rangel (Government Property Inspector) Related Notes: Original Note by RONNELL Rangel (Government Property Inspector) filed at 12/03/17 [address] [facility] msg that Coumadin Clinic is not able to see patient until he is established with an [place] on physician which will happen on December 09 at 1300 with Nalini Jones MD. Scheduled a couma din clinic appt on 12/09/17 at 1400. Called pt's son Blayne and informed him of the above appt and encouraged him to remind Dr. Jones to immediately make a referral to [facility] in [facility] for his appt at 1400 that same day. Informed son that pt needed to go to [facility] sometime tomorrow for an INR lab draw and that Dr. Jain will monitor his INR until marty ent gets established with a new PCP on December 09. Faxed order for INR lab draw to [facility] in [place] ([phone]) and results to be called to Dr. Jain. Faxed DC Summary to [facility] and to Dr. Jones's office. onver kelin Transaction, Provider Unknown - 12/01/2017 3:21 PM PDT Therapy Progress Note by GURWINDER Dahl at 12/01/17 1521 Author: GURWINDER Dahl Service: (none) Author Type: Occupational Therapist Filed: 12/01/17 1523 Date of Service: 12/01/171520 Status: Signed Hooking Machine Operator: GURWINDER Dahl (Occupational Therapist) OCCUPATIONAL THERAPY TREATMENT NOTE OT Received On: 12/01/17 Reason for Treatment: Deconditioning Requires OT Follow Up: No Assistance Required: 1 person Workforce Planning Analyst Needed: No Family/Caregiver Present: No Requires OT Follow Up: No Recommendation Comments Plan Requires OT Follow Up: No Focus for next session: N/A, pt discharging Follow up OT only? [] Yes [x] No Precautions Spinal Precautions: Lumbar, TLSO on when upright Other Precautions: fall risk, SpO2>/= 88%, pre medicate for pain Summary Pt seen for OT session. Focus of session on ADL's, showering and energy conservaiton durin g funcitonal ADL tasks. Pt was supine in bed when OT arrived for session. Completed bed mo bility and transferred to the W/C. Self-propelled to the for showering tasks. Pt's O2 w as increased to 3L during the shower. He removed the NC during the shower but at the end wh en it was replaced pt was prompted to breathe in through his nose and out through his mouth. Pt returned to his room and transferred back to bed. O2 sats checked after returning to [facility] room on 3L O2, at 97%. Returned pt to 2L. ADL/IADL See FIM for breakdown. FIM Bathing Which bathing tasks were completed during this session?: Arm right, Arm left, Chest, Abdome n, Perineal area front, Buttocks, Leg upper right, Leg upper left Patient completed % of overall bathing task: 100 Percent Bathing Final Score: Minimal Assistance Upper Body Dressing Clothing Items Worn This Session: addictions recovery specialist shirt Upper Body Dressing Final Score: Supervision/Set-up Lower Body Dressing Clothing Items Worn This Session: Pants, Socks % Dressing Tasks Completed : 20 % Lower Body Dressing Final Score: Total Assistance Toileting Is this a continent episode?: Yes-continue scoring Patient completed % of overall toileting task: 100 Percent Toileting Final Score: Modified Bryant Bladder Management Bladder Management: Level of Assistance: Complete Bryant Bowel Management Bowel Management: Level of Assistance: Complete Bryant Transfer Bed/Chair Wheelchair Transfers: Bed, Chair, Wheelchair Final Score: Minimal Assistance Toilet Transfer Transfers: Toilet Final Score: Supervision/Set-up Tub/Shower Transfer Transfers: Tub, Shower Final Score: Supervision/Set-up Comprehension Comprehension Final Score: 6 - Modified independence Expression Expression Final Score : Modified independence Social Interaction Social Interaction Final Score: Modified Bryant Problem Solving Problem Solving Final Score: Modified Bryant Memory Memory Final Score: Complete Bryant Barriers to d/c at this time include: [] Home environment [] Family support [] Equipment needs [] Cognitive deficits impacting functional independence [] Physical deficits impacting functional independence [] Self-care deficits impacting functional independence [] Other Pain The patient did not demonstrate any signs of symptoms of pain throughout OT session Education Completed: Education Topics: Pacing, PLB, energy conservation, functional mobility Completed with: [x] Patient [] Spouse [] Significant other [] Family [] C aregiver [] Other Completed by :[x] Verbal education [] Demonstration [] Handout [] Other: Response to Education: [x] Stated Understanding [] Reinforcement necessary [] Returned demonstration [] Demonstrated understanding [] No evidence of learning [] Refused onver kelin Sun Provider Unknown - 12/01/2017 2:36 PM PDT Progress Notes by Blayne Brown RRT at 12/01/17 6099 Author: Blayne Brown RRT Service: (none) Author Type: Registered Respiratory Therapist Filed: 12/01/17 1430 Date of Service: 12/01/171435 Status: Signed Hooking Machine Operator: Blayne Brown RRT (Registered Respiratory Therapist) [facility] Department of Respiratory Longterm Oxygen Evaluation (Evaluation is valid for 48 hours once completed) Date: 12/01/2017 RT: Blayne Brown Time: 2:36 PM Home O2 Eval at rest-Part 1 Is the patient's SpO2 88% or lower at rest & breathing room air? : Yes (did not test pt on RA his home baseline is 2l flow) If yes, lpm O2 to keep SpO2 88% or higher at rest: 2 lpm SpO2 on O2 at rest : 93 percent Home O2 Eval during exercise-Part 2 Is the patient's SpO2 88% or lower during exercise & breathing room air? : Yes (walking RA test not done pt baseline is 2l flow) If yes, lpm O2 to keep SpO2 88% or higher during excercise: 2 lpm SpO2 on O2 during exercise: 91 percent Home O2 Eval Comment Eval Comment: pt baseline supplemental O2 is 2l flow, test was to determine if increase of baseline, pt able to walk greater than 150 feet with walker at moderate pace with no additio nal SOB or dyspnea. HOME OXYGEN PROVIDER PREFERENCE PHONE FAX *NOTE* Provider must include liter flow, route of oxygen administration, frequency of use w ith duration of need in months on the prescription AND document patient s diagnosis. OXYGEN PRN IS NOT A VALID ORDER Physician Signature: Date: Time: onver kelin Transaction, Provider Unknown - 12/01/2017 2:15 PM PDT Therapy Progress Note by Josy Kwok PT at 12/01/17 1415 Author: Josy Kwok PT Service: (none) Author Type: Physical Therapist Filed: 12/01/17 1528 Date of Service: 12/01/171414 Status: Signed Hooking Machine Operator: Joys Kwok PT (Physical Therapist) PHYSICAL THERAPY TREATMENT NOTE PT Received On: 12/01/17 Reason for Treatment: Other (comment) (s/p fall with compression fx, SOB with CHF exacerbat ion) Requires PT Follow Up: Yes Follow up PT Only?: No Assistance Required: 1 person Recommendations: Home Assist, HH OT, HH PT Equipment Recommended: (pt owns FWW and W/C) PT Ready for Discharge: Yes Plan Treatment/Interventions: Continue per Primary PT POC Progress: Progressing toward goals Summary Comments: Pt supine in bed when PT arrived, agreeable to therapy. Reports no pain. Session focused on completing care tool items. RT present at start of session to monitor SpO2 during activity. SpO2 remained > 91 during all activities. Pt demonstrated good safety awareness t hroughout session. Only requiring VCs during car transfer to encourage him to get closer bef ore turning around with his walker to limit retro steps. Anticipate pt safe to d/c home with assist tomorrow. Pt finished session supine in bed, all needs met. Precautions Spinal Precautions: Lumbar, TLSO on when upright Other Precautions: fall risk, SpO2>/= 88%, pre medicate for pain Cognition Overall Cognitive Status: Within Functional Limits Orientation Level: Oriented FUNCTIONAL MOBILITY Bed Mobility Rolling: Modified independent Sidelying to Sit: Modified independent Sit to Sidelying: Modified independent - Transfers Sit to/from Stand: Modified independent Bed to/from Chair: Modified independent Car Transfer: Verbal instruction, Supervision Ambulation Maximal Ambulation Distance (feet): 175ft Total Ambulation Distance (feet): 175ft Ambulation Assistance: Supervision Distance limited by?: Patient's ability Pattern: Alternating, Decreased garland, Right swing foot doesn't pass stance foot, Left sw ing foot doesn't pass stance foot, Forward flexed Assistive Device: Walker front wheeled Stairs Number of Stairs: 9 Stairs Assistance: Standby assist Number of stairs limited by?: Patient's ability Stair Management Technique: Rails bilateral, Step-to Wheelchair Mobility Maximal Wheelchair Distance (feet): 200ft Total Wheelchair Distance (feet): 200ft Wheelchair: Modified Independent Distance limited by?: Patient's ability Wheelchair Propulsion: BUE, BLE Wheelchair Type: Lightweight Wheelchair Surface: Linoleum, Carpet, [place] Wheelchair Management: Brake Right, Brake Left Activity Tolerance: Patient limited by fatigue, Patient limited by shortness of breath (SOB ) Nurse Made Aware: yes Safety Devices in Place: (call light) The patient demonstrated no indication of pain during therapy session. Education Completed: Education Topics: [] Rationale for PT [] PT POC [x] DC planning [] Precautions [] Exercises [] Bed mobility [] Transfer training with hand placement [] Gait training [] Stair training [] Use of gait belt [] Other Completed with: [x] Patient [] Spouse [] Significant other [] Family [] C aregiver [] Other Completed by: [x] Verbal education [] Demonstration [] Handout [] Other: Response to Education: [x] Stated Understanding [] Reinforcement necessary [] Returned demonstration [x] Demonstrated understanding [] No evidence of learning [] Refused Raymundo De Los Santos MS CCC-HOSPITAL COOK - 12/01/2017 10:30 AM PDT Progress Notes by Veena Ayala MS CCC-HOSPITAL COOK at 12/01/17 1030 Author: Veena Ayala MS CCC-HOSPITAL COOK Service: (none) Author Type: Speech and Language Patho logist Filed: 12/01/17 1110 Date of Service: 12/01/17 1030 Status: Signed Hooking Machine Operator: Veena Ayala MS CCC-HOSPITAL COOK (Speech and Language Pathologist) SPEECH - LANGUAGE - COGNITION HOSPITAL COOK Received On: 12/01/17 Requires HOSPITAL COOK Follow Up: Yes Treatment Plan: Continue with current plan Treatment Frequency: 4-6 x/week Session type: Treatment Additional Pertinent History: Pt provided his personal hx wihich is corroborated by previou s ST notes. Pt was aware his phone had been done charging and asked for the wind operations supervisor to be di sconnected and placed in the night table top drawer. Initially he could not find his phone, but discovered it under some papers on his tray table. We used the memory binder to review r ecording a voice message via text. Family/Caregiver Present: No Auditory Reading Expression Pragmatics Speech/voice Passy-Kelvin Passy-Atkinson Valve Trials Written Expression Cognition Problem Solving Comments: Answered questions regarding medicine labels and variou s types of receipts to 88% accuracy. Min cues needed for more details. Pt used the labels an d receipts to answer specific questions, often involving numbers: phone numbers, amounts, fr equency of occurrence, etc. Memory Comments: Pt recalled activities documented in previous ST sessions as well as thei r significance to his ADLs. He recalled where his memory book and what it looked like. His o nly memory struggle today was finding his telephone, which was out of view under some papers on his tray table. 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 Education Completed Education Topics: [x] Cognition: Educate on speech-language pathology role, sessions activities, results, sa fety precautions, plan of care, and homework activities [] Speech: Educate on speech-language pathology role, sessions activities, results, plan of care, and homework activities. [] Language: Educate on speech-language pathology role, sessions activities, results, pl an of care, and homework activities. Completed with: [x] Patient [] Spouse [] Significant other [] Family [] C aregiver [] Other Completed by: [x] Verbal education [x] Demonstration [] Handout [] Other: Response to Education: [x] Stated Understanding [] Reinforcement necessary [x] Retur asa demonstration [x] Demonstrated understanding [] No evidence of learning [] Refused Veena Ayala MS CCC-HOSPITAL COOK onversion Tra nsaction, Provider Unknown - 12/01/2017 10:00 AM PDTFormatting of this note might be differe nt from the original. Therapy Progress Note by Josy Kwok PT at 12/01/17 1000 Author: Josy Kwok PT Service: (none) Author Type: Physical Therapist Filed: 12/01/17 5290 Date of Service: 12/01/17 1000 Status: Signed Hooking Machine Operator: Josy Kwok PT (Physical Therapist) PHYSICAL THERAPY TREATMENT NOTE PT Received On: 12/01/17 Reason for Treatment: Other (comment) (s/p fall with compression fx, SOB with CHF exacerbat ion) Requires PT Follow Up: Yes Follow up PT Only?: No Assistance Required: 1 person Recommendations: IRF Plan Treatment/Interventions: Continue per Primary PT POC Progress: Progressing toward goals Summary Comments: Pt supine in bed sleeping when PT arrived, agreeable to therapy. Reported no pain . Pt requested to use restroom at start of session - noted small BM in brief. Pt unable to u rinate or have BM. Required assistance to don new brief/pants and for peircare - pt initiall y attempting to leave bathroom with no lower body dressing completed. Pt able to maintain st anding for 1.5-2mins while therapist assisted with pericare. Required extended seated rest b reak following to recover. Remainder of session focused on assessing w/c tolerance for care tool. Pt finished session up in w/c, all needs met. Precautions Spinal Precautions: Lumbar, TLSO on when upright Other Precautions: fall risk, SpO2>/= 88%, pre medicate for pain Cognition Overall Cognitive Status: Within Functional Limits Orientation Level: Oriented FUNCTIONAL MOBILITY Bed Mobility Rolling: Modified independent Sidelying to Sit: Modified independent Sit to Sidelying: Modified independent - Transfers Sit to/from Stand: Modified independent Ambulation Stairs Wheelchair Mobility Maximal Wheelchair Distance (feet): 150x2 Total Wheelchair Distance (feet): 300ft Wheelchair: Modified Independent Distance limited by?: Patient's ability Wheelchair Propulsion: BUE, BLE Wheelchair Type: Lightweight Wheelchair Surface: Linoleum Wheelchair Management: Brake Right, Brake Left BALANCE THERAPEUTIC EXERCISE Activity Tolerance: Patient limited by fatigue, Patient limited by shortness of breath (SOB ) Nurse Made Aware: yes Safety Devices in Place: (call light) The patient demonstrated no indication of pain during therapy session. Education Completed: Education Topics: [] Rationale for PT [] PT POC [x] DC planning [] Precautions [] Exercises [] Bed mobility [] Transfer training with hand placement [] Gait training [] Stair training [] Use of gait belt [] Other Completed with: [x] Patient [] Spouse [] Significant other [] Family [] C aregiver [] Other Completed by: [x] Verbal education [] Demonstration [] Handout [] Other: Response to Education: [x] Stated Understanding [] Reinforcement necessary [] Returned demonstration [] Demonstrated understanding [] No evidence of learning [] Refused Wing Micah Lopes MD - 12/01/2017 7:20 AM PDTFormatting of this note might be different from the orig inal. Progress Notes by Wing Micah Jain MD at 12/01/17719 Author: Wing Micah Jain MD Service: (none) Author Type: Physician Filed: 12/01/17720 Date of Service: 12/01/17719 Status: Signed Hooking Machine Operator: Wing Micah Jain MD (Physician) [facility] Service: Physical Medicine & Rehab Progress Note Hospital Day: LOS: 17 days SUBJECTIVE Patient Summary: The patient with early appt with Dr. Knox tomorrow on discharge, alistair whitney get paperwork done early. participate in OT. Emphasis on addressing transporting items with use of FWW and counter to ps. w/c mobility to/from IPR kitchen area. pt to partake in task ROS: No current complaints of neurological problems such as new weakness, numbness, tinglin g, visual changes. No complaints of CVS, pulmonary, GI, , integument, probs. No complaints of SOB,CP,NAUSEA, swallowing problems or pain problems. No complaints of sleeping difficult y. No complaints of anxiety or depression. Scheduled Medications aspirin 81 mg Oral Daily atorvastatin 20 mg Oral Nightly calcitonin (salmon) 1 spray Alternating Nares Daily co-enzyme Q-10 200 mg Oral Daily digoxin 0.125 mg Oral Daily diltiazem 240 mg Oral Daily doxazosin 2 mg Oral Nightly furosemide 40 mg Oral Daily Lidocaine 1 patch Transdermal Daily methocarbamol 750 mg Oral 4x Daily methylnaltrexone 12 mg Subcutaneous Daily multivitamin with minerals 1 tablet Oral Daily oxybutynin 10 mg Oral TID oxyCODONE 5 mg Oral 4x Daily senna 2 tablet Oral Nightly spironolactone 12.5 mg Oral Daily umeclidinium-vilanterol 1 puff Inhalation Daily warfarin 4 mg Oral Daily PRN Medications acetaminophen OR acetaminophen, ipratropium-albuterol, magnesium hydroxide, ondansetron OR ondansetron, oxyCODONE-acetaminophen, oxyCODONE-acetaminophen, polyethylene glycol, zolpidem OBJECTIVE Vital Signs: BP 138/82 (BP Location: Left upper arm) | Pulse 75 | Temp 98 F (36.7 C) (Oral) | Res p 18 | Ht 1.753 m (5' 9") | Wt 67.9 kg (149 lb 9.6 oz) | SpO2 95% | BMI 22.09 kg/m General Appearance: Alert, cooperative, no distress. Head: symmetrical Eyes: reactive Lungs: clear Chest wall: nontender Heart: regular Abdomen: soft Extremities: Negative edema Pulses: regular Skin: intact DATA No results found for this or any previous visit (from the past 24 hour(s)). 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 2) Mobility ADL/dysfunction - continue OT for ADL's, IADL's, functional transfers, equipmen t evaluation, family training. 3) Mobility dysfunction - continue 24 hr. Rehab nursing for bowel, bladder skin pain sleep. Wing Demetra Jain MD 12/01/20177:20 AM onversion Transaction, Provider Unknown - 11/30/2017 2:15 PM PDTFormatting of this note might be different from t robert original. Therapy Progress Note by Enzo Chan at 11/30/17 1415 Author: Enzo Chan Service: (none) Author Type: Recreational Therapist Filed: 11/30/17 1415 Date of Service: 11/30/171414 Status: Signed Hooking Machine Operator: Enzo Chan (Recreational Therapist) 11/30/17 1413 Attendance Activity Leisure planning (sports history journal) Therapeutic Recreation Social Skills Initiates conversation or social interaction Physical Functioning Skills Increase tolerance Cognitive Function (good) Leisure Participation Active participation Satisfied with Leisure Interest Yes Time Spent With Patient Minutes 30 Requires REC Follow Up Yes (continue possible crafts, magic cards, history journaling) Wing Micah Lopes MD - 11/30/2017 7:59 AM PDTFormatting of this note might be different from the orig inal. Progress Notes by Wing Micah Jain MD at 11/30/17 0759 Author: Wing Micah Jain MD Service: (none) Author Type: Physician Filed: 11/30/17 0759 Date of Service: 11/30/17 0759 Status: Signed Hooking Machine Operator: Wing Micah Jain MD (Physician) [facility] Service: Physical Medicine & Rehab Progress Note Hospital Day: LOS: 16 days SUBJECTIVE Patient Summary: The patient's INR at 2.5 today, therapeutic. Pt demonstrated improved safety awareness with w/c management, did not require cueing to lo ck brakes. Once down in gym pt requested to use bathroom. Demonstrated improved safety aware ness while ambulating to the bathroom - did not woodard, improved upright posture. Pt unsuccess ful with urinating. Pt demonstrated improved recall for safe car transfer technique, did not attempt to lift one limb into car while standing as he did during his last car transfer ROS: No current complaints of neurological problems such as new weakness, numbness, tinglin g, visual changes. No complaints of CVS, pulmonary, GI, , integument, probs. No complaints of SOB,CP,NAUSEA, swallowing problems or pain problems. No complaints of sleeping difficult y. No complaints of anxiety or depression. Scheduled Medications aspirin 81 mg Oral Daily atorvastatin 20 mg Oral Nightly calcitonin (salmon) 1 spray Alternating Nares Daily co-enzyme Q-10 200 mg Oral Daily digoxin 0.125 mg Oral Daily diltiazem 240 mg Oral Daily doxazosin 2 mg Oral Nightly furosemide 40 mg Oral Daily Lidocaine 1 patch Transdermal Daily methocarbamol 750 mg Oral 4x Daily methylnaltrexone 12 mg Subcutaneous Daily multivitamin with minerals 1 tablet Oral Daily oxybutynin 10 mg Oral TID oxyCODONE 5 mg Oral 4x Daily senna 2 tablet Oral Nightly spironolactone 12.5 mg Oral Daily umeclidinium-vilanterol 1 puff Inhalation Daily warfarin 4 mg Oral Daily PRN Medications acetaminophen OR acetaminophen, ipratropium-albuterol, magnesium hydroxide, ondansetron OR ondansetron, oxyCODONE-acetaminophen, oxyCODONE-acetaminophen, polyethylene glycol, zolpidem OBJECTIVE Vital Signs: BP 120/73 | Pulse 106 | Temp 98.5 F (36.9 C) (Oral) | Resp 18 | Ht 1.753 m (5' 9") | Wt 67.6 kg (149 lb 1.6 oz) | SpO2 92% | BMI 22.02 kg/m General Appearance: Alert, cooperative, no distress. Head: symmetrical Eyes: reactive Lungs: clear Chest wall: nontender Heart: regular Abdomen: soft Extremities: Negative edema Pulses: regular Skin: intact DATA Results for orders placed or performed during the hospital encounter of 11/14/17 (from the past 24 hour(s)) Protime-INR Collection Time: 11/30/17 6:27 AM Result Value Ref Range INR 2.5 ASSESSMENT & PLAN Patient Active Hospital Problem List: Compression fracture of lumbar vertebra (HCC) (11/09/2012) Assessment: improving Plan: cont with pain management Lumbar degenerative disc disease (11/09/2012) Assessment: stable Plan: pain management T12 compression fracture (HCC) (09/19/2017) Assessment: stable Plan: pain management Chronic atrial fibrillation (HCC) (09/19/2017) Assessment: stable Plan: cont with Digoxin COPD, 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 2) Mobility ADL/dysfunction - continue OT for ADL's, IADL's, functional transfers, equipmen t evaluation, family training. 3) Mobility dysfunction - continue 24 hr. Rehab nursing for bowel, bladder skin pain sleep. Wing Demetra Jain MD 11/30/20177:59 AM onversion Transaction, Provider Unknown - 11/29/2017 11:33 AM PDTFormatting of this note might be different from t robert original. Therapy Progress Note by Josy Kwok PT at 11/29/17 4623 Author: Josy Kwok PT Service: (none) Author Type: Physical Therapist Filed: 11/29/17 1222 Date of Service: 11/29/17 1133 Status: Signed Hooking Machine Operator: Josy Kwok PT (Physical Therapist) PHYSICAL THERAPY TREATMENT NOTE PT Received On: 11/29/17 Reason for Treatment: Other (comment) (s/p fall with compression fx, SOB with CHF exacerbat ion) Requires PT Follow Up: Yes Follow up PT Only?: No Assistance Required: 1 person Recommendations: IRF Plan Treatment/Interventions: Continue per Primary PT POC Progress: Progressing toward goals Summary Comments: Pt sitting up in w/c when PT arrived, agreeable to therapy. Pt demonstrated impro olimpia safety awareness with w/c management, did not require cueing to lock brakes. Once down i n gym pt requested to use bathroom. Demonstrated improved safety awareness while ambulating to the bathroom - did not woodard, improved upright posture. Pt unsuccessful with urinating. Pt demonstrated improved recall for safe car transfer technique, did not attempt to lift one l imb into car while standing as he did during his last car transfer. Pt finished session sitt ing up in w/c all needs met. Precautions Spinal Precautions: Lumbar, TLSO on when upright Other Precautions: fall risk, SpO2>/= 88%, pre medicate for pain Cognition Overall Cognitive Status: Within Functional Limits Orientation Level: Oriented FUNCTIONAL MOBILITY Bed Mobility - Transfers Sit to/from Stand: Modified independent Car Transfer: Supervision Ambulation Weight Bearing Status: WBAT RLE, WBAT LLE Maximal Ambulation Distance (feet): 75ft Total Ambulation Distance (feet): 75ft Ambulation Assistance: Supervision Distance limited by?: Therapist/staff discretion Pattern: Alternating, Decreased garland, Right swing foot doesn't pass stance foot, Left sw ing foot doesn't pass stance foot, Forward flexed Assistive Device: Walker front wheeled Stairs Wheelchair Mobility BALANCE THERAPEUTIC EXERCISE Activity Tolerance: Patient limited by fatigue, Patient limited by shortness of breath (SOB ) Safety Devices in Place: (call light) The patient demonstrated no indication of pain during therapy session. Education Completed: Education Topics: [] Rationale for PT [x] PT POC [] DC planning [] Precautions [] Exercises [] Bed mobility [x] Transfer training with hand placement [] Gait training [] Stair training [] Use of gait belt [] Other Completed with: [x] Patient [] Spouse [] Significant other [] Family [] C aregiver [] Other Completed by: [x] Verbal education [] Demonstration [] Handout [] Other: Response to Education: [x] Stated Understanding [] Reinforcement necessary [] Returned demonstration [] Demonstrated understanding [] No evidence of learning [] Refused onver kelin Transaction, Provider Unknown - 11/29/2017 11:00 AM PDT Therapy Progress Note by EMMA Mead at 11/29/17 1100 Author: EMMA Mead Service: (none) Author Type: Occupational Therapy Meir davis Filed: 11/29/17 1226 Date of Service: 11/29/17 1100 Status: Signed Hooking Machine Operator: EMMA Mead (Automatic Wheel Line Operator) OCCUPATIONAL THERAPY TREATMENT NOTE OT Received On: 11/29/17 Reason for Treatment: Deconditioning Requires OT Follow Up: Yes Assistance Required: 1 person Workforce Planning Analyst Needed: No Family/Caregiver Present: No Recommendation: (continue IRF) Equipment Recommended: Raised toilet seat Requires OT Follow Up: Yes Recommendation Comments Plan Treatment Interventions: (per OT POC) Progress: Progressing toward goals Requires OT Follow Up: Yes Focus for next session: Activity tolerance Follow up OT only? [] Yes [x] No Precautions Spinal Precautions: Lumbar, TLSO on when upright Other Precautions: fall risk, SpO2>/= 88%, pre medicate for pain Summary pt seated in w/c in room upon ELISEO arrival. Agreeable to participate in OT at this time. Emp hasis on addressing transporting items with use of FWW and counter tops. w/c mobility to/fro m IPR kitchen area. pt to partake in task. At end of session pt remained seated in w/c in ro om no needs indicated at htis time. ADL/IADL Light Housekeeping Light Housekeeping Level: Walker Light Housekeeping Level of Assistance: Close supervision Light Housekeeping: for placement of cup into top shelf of plate washer providing for appropriate reaching distance and walker positioning. Kitchen Mobility Kitchen-Mobility Level: Walker Kitchen Activity: Transport items Kitchen Mobility Comments: pt requiring mod for tech to transport item from one area to another with use of FWW and counter top. Pt to have tendency to twist and or attempt to hold item within hand. With /demonstration of appropriate tech pt able to demonstrate. frequen t seated rest break d/t fatigue throughout session. Safety Devices in Place: Yes Type of Devices: Call lite in place, Wheelchair Comprehension Comprehension Final Score: 5 - Supervision/set-up Expression Expression Final Score : Modified independence Social Interaction Social Interaction Final Score: Modified Bryant Problem Solving Problem Solving Final Score: Moderate Assistance Memory Memory Final Score: Minimal Assistance Barriers to d/c at this time include: [] Home environment [] Family support [] Equipment needs [] Cognitive deficits impacting functional independence [] Physical deficits impacting functional independence [] Self-care deficits impacting functional independence [] Other Pain The patient did not demonstrate any signs of symptoms of pain throughout OT session Education Completed: Education Topics: wlkaer safety(transporting) Completed with: [x] Patient [] Spouse [] Significant other [] Family [] C aregiver [] Other Completed by :[x] Verbal education [] Demonstration [] Handout [] Other: Response to Education: [x] Stated Understanding [] Reinforcement necessary [x] Returned demonstration [] Demonstrated understanding [] No evidence of learning [] Refused Reviewed plan of care and goals set by OTR/L. ovarTrinity hoffmann MA, CCC-HOSPITAL COOK - 11/29/2017 10:29 AM PDTFormatting of this note might be differ ent from the original. Therapy Progress Note by Trinity Arzola MA CCC-HOSPITAL COOK at 11/29/17 1029 Author: Trinity Arzola MA CCC-HOSPITAL COOK Service: (none) Author Type: Speech and Language Pathologist Filed: 11/29/17 1226 Date of Service: 11/29/17 1029 Status: Signed Hooking Machine Operator: Trinity Arzola MA CCC-HOSPITAL COOK (Speech and Language Pathologist) SPEECH - LANGUAGE - COGNITION HOSPITAL COOK Received On: 11/29/17 Requires HOSPITAL COOK Follow Up: Yes Treatment Plan: Continue with current plan Session type: Treatment Additional Pertinent History: Pt given cognitive stimulation packet with a variety of activ ities and worksheets. Family/Caregiver Present: No Cognition Memory Comments: Started memory binder that included a section to write down steps on how t o do different tasks on his cell phone. Wrote down steps for how to send a recorded voice me ssage via text. Activity Tolerance Activity Tolerance: Patient tolerated treatment well Goals are progressing unless otherwise indicated. Education Completed Education Topics: [x] Cognition: Educate on speech-language pathology role, sessions activities, results, sa fety precautions, plan of care, and homework activities [] Speech: Educate on speech-language pathology role, sessions activities, results, plan of care, and homework activities. [] Language: Educate on speech-language pathology role, sessions activities, results, pl an of care, and homework activities. Completed with: [x] Patient [] Spouse [] Significant other [] Family [] C aregiver [] Other Completed by: [x] Verbal education [x] Demonstration [x] Handout [] Other: Response to Education: [x] Stated Understanding [x] Reinforcement necessary [] Retur asa demonstration [] Demonstrated understanding [] No evidence of learning [] Refused Trinity Arzola MA CCC-HOSPITAL COOK Wing Micah Lopes MD - 11/29/2017 7:08 AM PDTFormatting of this note might be different from the orig inal. Progress Notes by Wing Micah Jain MD at 11/29/17707 Author: Wing Micah Jain MD Service: (none) Author Type: Physician Filed: 11/29/17708 Date of Service: 11/29/17707 Status: Signed Hooking Machine Operator: Wing Micah Jain MD (Physician) [facility] Service: Physical Medicine & Rehab Progress Note Hospital Day: LOS: 15 days SUBJECTIVE Patient Summary: The patient is doing adequately with nasal oxygen. participated in Therex session ( nustep, 2 lbs dowel therex, tossing ball to therapist 1x10 and against trampoline 1x 20 . Pt required Min vcs for body mechanics and safety to transfe r from W/C to nustep and R/W. Pt O2 was checked duriing therapy Pt withing ranges at pO2 of 97. ROS: No current complaints of neurological problems such as new weakness, numbness, tinglin g, visual changes. No complaints of CVS, pulmonary, GI, , integument, probs. No complaints of SOB,CP,NAUSEA, swallowing problems or pain problems. No complaints of sleeping difficult y. No complaints of anxiety or depression. Scheduled Medications aspirin 81 mg Oral Daily atorvastatin 20 mg Oral Nightly calcitonin (salmon) 1 spray Alternating Nares Daily co-enzyme Q-10 200 mg Oral Daily digoxin 0.125 mg Oral Daily diltiazem 240 mg Oral Daily doxazosin 2 mg Oral Nightly furosemide 40 mg Oral Daily Lidocaine 1 patch Transdermal Daily methocarbamol 750 mg Oral 4x Daily methylnaltrexone 12 mg Subcutaneous Daily multivitamin with minerals 1 tablet Oral Daily oxybutynin 10 mg Oral TID oxyCODONE 5 mg Oral 4x Daily senna 2 tablet Oral Nightly spironolactone 12.5 mg Oral Daily umeclidinium-vilanterol 1 puff Inhalation Daily warfarin 4 mg Oral Daily PRN Medications acetaminophen OR acetaminophen, ipratropium-albuterol, magnesium hydroxide, ondansetron OR ondansetron, oxyCODONE-acetaminophen, oxyCODONE-acetaminophen, polyethylene glycol, zolpidem OBJECTIVE Vital Signs: BP 128/89 (BP Location: Left upper arm) | Pulse 85 | Temp 96.8 F (36 C) (Oral) | Res p 16 | Ht 1.753 m (5' 9") | Wt 68.5 kg (151 lb) | SpO2 94% | BMI 22.30 kg/m General Appearance: Alert, cooperative, no distress. Head: symmetrical Eyes: reactive Lungs: clear Chest wall: nontender Heart: regular Abdomen: soft Extremities: Negative edema Pulses: regular Skin: intact DATA No results found for this or any previous visit (from the past 24 hour(s)). 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 2) Mobility ADL/dysfunction - continue OT for ADL's, IADL's, functional transfers, equipmen t evaluation, family training. 3) Mobility dysfunction - continue 24 hr. Rehab nursing for bowel, bladder skin pain sleep. Wing Demetra Jain MD 11/29/20177:08 AM onversion Transaction, Provider Unknown - 11/28/2017 4:31 PM PDTFormatting of this note might be different from t he original. Therapy Progress Note by EMMA Joiner at 11/28/17 1631 Author: EMMA Joiner Service: (none) Author Type: Occupational Therapy Meir davis Filed: 11/28/17 1638 Date of Service: 11/28/17 1631 Status: Signed Hooking Machine Operator: EMMA Joiner (Automatic Wheel Line Operator) 11/28/17 2995 OT Last Visit OT Received On 11/28/17 Reason for Treatment Deconditioning Requires OT Follow Up Yes Assistance Required 1 person Workforce Planning Analyst Needed No Family/Caregiver Present No Precautions Spinal Precautions Lumbar;TLSO on when upright Other Precautions fall risk, SpO2>/= 88%, pre medicate for pain Other Comments Comments Ppt supine upon ELISEO arrival. Pt willing to participated in Therex session ( nustep , 2 lbs dowel therex, tossing ball to therapist 1x10 and against trampoline 1x 20 . Pt requi red Min vcs for body mechanics and safety to transfer from W/C to nustep and R/W. Pt O2 was checked duriing therapy Pt withing ranges 97. However, Pt required rest breaks and water jordan aks during session.. Therapeutic Exercise - Strength Strength Yes Strength Exercise shoulder protraction seated with 2 lbs Exercise Tools Exercise Tools Yes Other Exercise Tool 1 Dowel 2 lbs Other Exercise Tool 2 nustep for 10 minutes Other Exercise Tool 3 tossing ball to trampolie Activity Tolerance Activity Tolerance Patient tolerated treatment well (with rest breaks SPO2 checked 97) Safety Devices Safety Devices in Place Yes Type of Devices Call lite in place;Wheelchair Plan Treatment Interventions (Per OT POC) Progress Progressing toward goals Recommendation Recommendation (Cont IPR) Equipment Recommended Raised toilet seat 11/28/17 1345 Comprehension (in [place] language) 6 - Patient understands complex/abstract information WITH? extra time 5 - Patient understands basic information WITH? cues/instruction Comprehension Final Score 5 - Supervision/set-up Expression (in [place] language) 6 - Patient expresses complex/abstract information WITH? extra time (3 times normal) Expression Final Score 6 Social Interaction 6 - Patient interacts appropriately WITH? extra time Social Interaction Final Score 6 Problem Solving 6 - Patient solves complex problems WITH? mild difficulty 5 - Patient requires supervision for basic problem solving DUE TO? cueing/instruction only in unfamiliar environments Problem Solving Final Score 5 Memory 7- Patient is independent with memory DUE TO? recalling 3 of 3 tasks 6 - Patient is modified independent with memory DUE TO? mild difficulty recognizing/remembe ring/executing tasks 5 - Patient requires supervision for memory DUE TO? cueing/instruction only in unfamiliar e nvironments 4 - Patient requires minimal assistance for memory DUE TO? recognizing/remembering/executin g tasks 75-90% of time Memory Final Score 4 Social/Cognitive Score Impacted By: The 5 social/cognitive scores impacted by Hearing Mary Schwartz MARCIAL/L 11/28/2017 Wing Micah Lopes MD - 11/28/2017 1:39 PM PDTFormatting of this note might be different from the orig inal. Progress Notes by Wing Micah Jain MD at 11/28/17 3628 Author: Wing Micah Jain MD Service: (none) Author Type: Physician Filed: 11/28/17 6854 Date of Service: 11/28/171338 Status: Signed Hooking Machine Operator: Wing Micah Jain MD (Physician) [facility] Service: Physical Medicine & Rehab Progress Note Hospital Day: LOS: 14 days SUBJECTIVE Patient Summary: The patient's INR still at 1.9, increase Coumadin 4 mg daily. Became SOB with bed mobility and donning TLSO- able to recover with deep breathing. Pt req uested to use bathroom. Demosntrated fair balance while donning on doffing pants - still req uiring supervision for safety. ROS: No current complaints of neurological problems such as new weakness, numbness, tinglin g, visual changes. No complaints of CVS, pulmonary, GI, , integument, probs. No complaints of SOB,CP,NAUSEA, swallowing problems or pain problems. No complaints of sleeping difficult y. No complaints of anxiety or depression. Scheduled Medications aspirin 81 mg Oral Daily atorvastatin 20 mg Oral Nightly calcitonin (salmon) 1 spray Alternating Nares Daily co-enzyme Q-10 200 mg Oral Daily digoxin 0.125 mg Oral Daily diltiazem 240 mg Oral Daily doxazosin 2 mg Oral Nightly furosemide 40 mg Oral Daily Lidocaine 1 patch Transdermal Daily methocarbamol 750 mg Oral 4x Daily methylnaltrexone 12 mg Subcutaneous Daily multivitamin with minerals 1 tablet Oral Daily oxybutynin 10 mg Oral TID oxyCODONE 5 mg Oral 4x Daily senna 2 tablet Oral Nightly spironolactone 12.5 mg Oral Daily umeclidinium-vilanterol 1 puff Inhalation Daily warfarin 4 mg Oral Daily PRN Medications acetaminophen OR acetaminophen, ipratropium-albuterol, magnesium hydroxide, ondansetron OR ondansetron, oxyCODONE-acetaminophen, oxyCODONE-acetaminophen, polyethylene glycol, zolpidem OBJECTIVE Vital Signs: BP 123/86 | Pulse 86 | Temp 97.9 F (36.6 C) (Oral) | Resp 18 | Ht 1.753 m (5' 9") | Wt 66.5 kg (146 lb 9.7 oz) | SpO2 94% | BMI 21.65 kg/m General Appearance: Alert, cooperative, no distress. Head: symmetrical Eyes: reactive Lungs: clear Chest wall: nontender Heart: regular Abdomen: soft Extremities: Negative edema Pulses: regular Skin: intact DATA Results for orders placed or performed during the hospital encounter of 11/14/17 (from the past 24 hour(s)) Protime-INR Collection Time: 11/28/17 7:07 AM Result Value Ref Range INR 1.8 ASSESSMENT & PLAN Patient Active Hospital Problem List: Compression fracture of lumbar vertebra (HCC) (11/09/2012) Assessment: improving Plan: cont with pain management Lumbar degenerative disc disease (11/09/2012) Assessment: stable Plan: pain management T12 compression fracture (HCC) (09/19/2017) Assessment: stable Plan: pain management Chronic atrial fibrillation ([facility]) (09/19/2017) Assessment: stable Plan: cont with Digoxin COPD, 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 2) Mobility ADL/dysfunction - continue OT for ADL's, IADL's, functional transfers, equipmen t evaluation, family training. 3) Mobility dysfunction - continue 24 hr. Rehab nursing for bowel, bladder skin pain sleep. Wing Demetra Jain MD 11/28/20171:39 PM onversion Transaction, Provider Unknown - 11/28/2017 1:25 PM PDTFormatting of this note might be different from t he original. Therapy Progress Note by Josy Kwok PT at 11/28/17 2115 Author: Josy Kwok PT Service: (none) Author Type: Physical Therapist Filed: 11/28/17 0800 Date of Service: 11/28/174 Status: Signed Hooking Machine Operator: Josy Kwok PT (Physical Therapist) PHYSICAL THERAPY TREATMENT NOTE PT Received On: 11/28/17 Reason for Treatment: Other (comment) (s/p fall with compression fx, SOB with CHF exacerbat ion) Requires PT Follow Up: Yes Follow up PT Only?: No Assistance Required: 1 person Recommendations: IRF Plan Treatment/Interventions: Continue per Primary PT POC Progress: Progressing toward goals Summary Comments: Pt supine in bed when PT arrived, agreeable to therapy. Session focused on improv ing up right posture and standing tolerance for improved ability to complete ADLS in standin g. Pt able to stand for 5 mins, continues to benefit from cues for pacing. Ed pt on position ing of w/c within the home setting as therapy has recommended pt use w/c when home alone to improve safety and energy conservation. Pt required cueing for proper positioning and would benefit from continued practice. Finished session supine in bed, all needs met. Precautions Spinal Precautions: Lumbar, TLSO on when upright Other Precautions: fall risk, SpO2>/= 88%, pre medicate for pain Cognition Overall Cognitive Status: Within Functional Limits Orientation Level: Oriented FUNCTIONAL MOBILITY Bed Mobility Sidelying to Sit: Modified independent Sit to Sidelying: Modified independent, Verbal instruction - Transfers Sit to/from Stand: Modified independent Ambulation Stairs Wheelchair Mobility Maximal Wheelchair Distance (feet): 50x2 Total Wheelchair Distance (feet): 100ft Wheelchair: Modified Independent Distance limited by?: Therapist/staff discretion Wheelchair Propulsion: BUE Wheelchair Type: Lightweight Wheelchair Surface: Linoleum Wheelchair Management: Brake Right, Brake Left Wheelchair Adaptations: Brake extension right, Brake extension left BALANCE THERAPEUTIC EXERCISE Activity Tolerance: Patient limited by fatigue, Patient limited by shortness of breath (SOB ) Nurse Made Aware: yes Safety Devices in Place: (call light) The patient demonstrated no indication of pain during therapy session. Education Completed: Education Topics: [] Rationale for PT [] PT POC [] DC planning [] Precautions [] Exercises [] Bed mobility [] Transfer training with hand placement [] Gait training [] Stair training [] Use of gait belt [x] Other: w/c management in the home Completed with: [x] Patient [] Spouse [] Significant other [] Family [] C aregiver [] Other Completed by: [x] Verbal education [x] Demonstration [] Handout [] Other: Response to Education: [] Stated Understanding [x] Reinforcement necessary [] Returned demonstration [] Demonstrated understanding [] No evidence of learning [] Refused onver kelin Transaction, Provider Unknown - 11/28/2017 12:31 PM PDT Case Management by RONNELL Rangel at 11/28/17 1231 Author: RONNELL Rangel Service: (none) Author Type: Government Property Inspector Filed: 11/28/17 1233 Date of Service: 11/28/17 1231 Status: Signed Hooking Machine Operator: RONNELL Rangel (Government Property Inspector) A referral/order was sent to [facility] for mgmt of INR. Requested [facility] call son with appt time on Friday. onver kelin Transaction, Provider Unknown - 11/28/2017 10:48 AM PDT Therapy Progress Note by EVANGELIST Braun at 11/28/17 1044 Author: EVANGELIST Braun Service: (none) Author Type: Physical Therapist Filed: 11/28/17 3311 Date of Service: 11/28/17 1048 Status: Attested Hooking Machine Operator: EVANGELIST Braun (Physical Therapist) Cosigner: Josy Kwok, PT at 1448 Attestation signed by Josy Kwok PT at 11/28/17 1440 Student therapist educationally participated in therapy session under the supervision of brent vazquez licensed therapist. This note was created by the student therapist and co-signed by the li censed therapist. Information in this note may have been obtained from flowsheet charting. T his note is co-signed at the treatment plan/progress note level. The patient approved of brent vazquez student's role in care. PHYSICAL THERAPY TREATMENT NOTE PT Received On: 11/28/17 Reason for Treatment: Other (comment) (s/p fall with compression fx, SOB with CHF exacerbat ion)) Requires PT Follow Up: Yes Follow up PT Only?: No Assistance Required: 1 person Workforce Planning Analyst Needed: No Recommendations: IRF Plan Treatment/Interventions: Continue per Primary PT POC Progress: Progressing toward goals Summary Comments: Pt upright in w/c when PT arrived, BLOOD BANK ASSISTANT and son present. Pt reports 7/10 pain, SELAM Vera notified and administered meds. Session focused on family education and proper mobility techniques in the home. Assesed fit of pt new w/c. [facility] educated on pt limited endurance and need for cues to pace self during activites with frequent rest brakes. [facility] ed on use of w/c brakes, armrests and footplates. [facility] aware of spinal precautions and proper technique of ca r transfers. [facility] ed on w/c and walker placement in the kitchen and next to bed. Pt demonstra kalen correct transfer technique with verbal cues from PT with family present. Pt likely benef it from continued therapy to improve recall of spinal precations and improve endurance. Sess ion ended supine in bed, all needs met, family present. Precautions Spinal Precautions: Lumbar, TLSO on when upright Other Precautions: fall risk, SpO2>/= 88%, pre medicate for pain Cognition Overall Cognitive Status: Within Functional Limits Orientation Level: Oriented FUNCTIONAL MOBILITY Bed Mobility Rolling: Modified independent Sit to Supine: Modified independent, Verbal instruction Sit to Sidelying: Modified independent, Verbal instruction - Transfers Sit to/from Stand: Modified independent Car Transfer: Supervision, Verbal instruction Stairs Number of Stairs: 3 Stairs Assistance: Minimal assist, Standby assist Number of stairs limited by?: Therapist/staff discretion Stair Management Technique: Rail on right ascending, Step-to (lateral step to) Wheelchair Mobility Maximal Wheelchair Distance (feet): 50 Total Wheelchair Distance (feet): 50 Wheelchair: Modified Independent Distance limited by?: Therapist/staff discretion Wheelchair Type: Standard Wheelchair Surface: Linoleum Wheelchair Management: Brake Right, Brake Left (verbal cue) Activity Tolerance: Patient limited by fatigue Nurse Made Aware: yes Safety Devices in Place: (call light) The patient reported pain rated at a 7/10. RN was notified (Jody). Education Completed: Education Topics: [] Rationale for PT [] PT POC [] DC planning [x] Precautions [] Exercises [x] Bed mobility [x] Transfer training with hand placement [] Gait training [] Stair training [] Use of gait belt [x] Other kitchen safety, w/c us e Completed with: [x] Patient [] Spouse [] Significant other [x] Family [] Caregiver [] Other Completed by: [x] Verbal education [x] Demonstration [] Handout [] Other: Response to Education: [x] Stated Understanding [] Reinforcement necessary [] Returned demonstration [] Demonstrated understanding [] No evidence of learning [] Refused onver kelin Transaction, Provider Unknown - 11/28/2017 10:15 AM PDT Therapy Progress Note by EMMA Mead at 11/28/17 1015 Author: EMMA Mead Service: (none) Author Type: Occupational Therapy Meir davis Filed: 11/28/17 3673 Date of Service: 11/28/17 1015 Status: Signed Hooking Machine Operator: EMMA Mead (Automatic Wheel Line Operator) OCCUPATIONAL THERAPY TREATMENT NOTE OT Received On: 11/28/17 Reason for Treatment: Deconditioning Requires OT Follow Up: Yes Assistance Required: 1 person Workforce Planning Analyst Needed: No Family/Caregiver Present: Yes Recommendation: (continue IRF) Equipment Recommended: Raised toilet seat Requires OT Follow Up: Yes Recommendation Comments Plan Treatment Interventions: (per OT POC) Progress: Progressing toward goals Requires OT Follow Up: Yes Focus for next session: Activity tolerance Follow up OT only? [] Yes [x] No Precautions Spinal Precautions: Lumbar, TLSO on when upright Other Precautions: fall risk, SpO2>/= 88% Summary pt seated in w/c with son upon ELISEO arrival Agreeable for participation in OT at this time. Emphasis on family training/education regarding assistance levels throughout all ADL/IADL ta sks, standing tolerance, ECT within home, precautions related to ADL tasks and functional tr ansfer. At end of sesison pt returned to room for PT session no further needs indicated at t his time. ADL/IADL Toileting Toileting Comments: unsucessful attempt with urination/BM at this time. SBA for safety whil e completing clothing management with use of grab bars Toilet Transfers Toilet Transfers Comments: educated benefits on RTS to assist with transition to/from walke r. Pt son state understanding Tub Transfers Tub Transfer From: Walker Tub Transfer Type: To and From Tub Transfer to: Transfer tub bench Tub Transfer Technique: Ambulating Tub Transfers: Supervision Tub Transfers Comments: for transition to/from tub unit. for hand placement during ST S transition as well as bringing 1 LE in/out of tub unit. Son report understanding and posit ioning to assist pt during transition Safety Devices in Place: Yes Type of Devices: Call lite in place Barriers to d/c at this time include: [] Home environment [] Family suppor [] Equipment needs-RTS [] Cognitive deficits impacting functional independence [] Physical deficits impacting functional independence [] Self-care deficits impacting functional independence [] Other Pain The patient did not demonstrate any signs of symptoms of pain throughout OT session Education Completed: Education Topics: Family training Completed with: [x] Patient [] Spouse [] Significant other [] Family [] C aregiver [] Other Completed by :[x] Verbal education [] Demonstration [] Handout [] Other: Response to Education: [x] Stated Understanding [] Reinforcement necessary [x] Returned demonstration [] Demonstrated understanding [] No evidence of learning [] Refused Reviewed plan of care and goals set by OTR/L. ovarTrinity hoffmann MA, CCC-HOSPITAL COOK - 11/28/2017 9:30 AM PDTFormatting of this note might be differ ent from the original. Therapy Progress Note by Trinity Arzola MA CCC-HOSPITAL COOK at 11/28/17929 Author: Trinity Arzola MA CCC-HOSPITAL COOK Service: (none) Author Type: Speech and Language Pathologist Filed: 11/28/17 1223 Date of Service: 11/28/17929 Status: Signed Hooking Machine Operator: Trinity Arzola MA CCC-HOSPITAL COOK (Speech and Language Pathologist) SPEECH - LANGUAGE - COGNITION HOSPITAL COOK Received On: 11/28/17 Requires HOSPITAL COOK Follow Up: Yes Treatment Plan: Continue with current plan Session type: Treatment Additional Pertinent History: Completed family training today. Pt and son given handouts re : applications and web sites targeting cognitive skills, and attention strategies. Reviewed recommendations re: using calendar with large print. Per son: pt's hearing aids are not work ing and they will be going to get them repaired once pt d/c'. Son reports he would like for patient to continue to learn how to use his phone (using calendar, sending messages). Pt in agreement to have ST write down steps for his to use different applications on his phone as he reports he forgets how to get navigate his phone. All of pt and son's questions were answ ered. Family and pt with no further questions. Family/Caregiver Present: Yes (Pt's son present ) Cognition Memory Comments: Pt recalled activities from previous ST sessions and today's date. 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 Education Completed Education Topics: [x] Cognition: Educate on speech-language pathology role, sessions activities, results, sa fety precautions, plan of care, and homework activities [] Speech: Educate on speech-language pathology role, sessions activities, results, plan of care, and homework activities. [] Language: Educate on speech-language pathology role, sessions activities, results, pl an of care, and homework activities. Completed with: [x] Patient [] Spouse [] Significant other [x] Family [] Caregiver [] Other Completed by: [x] Verbal education [x] Demonstration [] Handout [] Other: Response to Education: [x] Stated Understanding [x] Reinforcement necessary for patient [] Returned demonstration [] Demonstrated understanding [] No evidence of learning [] Refused Trinity Arzola MA CCC-HOSPITAL COOK onver kelin Transaction, Provider Unknown - 11/27/2017 2:30 PM PDT Therapy Progress Note by EVANGELIST Braun at 11/27/17 1430 Author: EVANGELIST Braun Service: (none) Author Type: Physical Therapist Filed: 11/27/17 4479 Date of Service: 11/27/171429 Status: Attested Hooking Machine Operator: EVANGELIST Braun (Physical Therapist) Cosigner: Josy Kwok PT at 1543 Attestation signed by Josy Kwok PT at 11/27/171543 Student therapist educationally participated in therapy session under the supervision of brent vazquez licensed therapist. This note was created by the student therapist and co-signed by the [facility] centered therapist. Information in this note may have been obtained from flowsheet charting. T his note is co-signed at the treatment plan/progress note level. The patient approved of brent vazquez student's role in care. PHYSICAL THERAPY TREATMENT NOTE PT Received On: 11/03/17 Reason for Treatment: Other (comment) (s/p fall with compression fx, SOB with CHF exacerbat ion) Requires PT Follow Up: Yes Follow up PT Only?: No Assistance Required: 1 person Workforce Planning Analyst Needed: No Recommendations: IRF Plan Treatment/Interventions: Continue per Primary PT POC Progress: Progressing toward goals Summary Comments: Pt upright in w/c when PT arrived, agreeable to therapy. Pt reports no pain. Sess ion focused on standing and stair tolerance to improve endurance. Pt required verbal cues to take deep, slow breaths. Pt reports fatigue at end of session. Could benefit from contivued therapy to improve endurance and 5STS time. Session ended supine in bed, all needs met. Precautions Spinal Precautions: Lumbar, TLSO on when upright Other Precautions: fall risk, SpO2>/= 88% Cognition Overall Cognitive Status: Within Functional Limits Orientation Level: Oriented FUNCTIONAL MOBILITY Bed Mobility Rolling: Modified independent Sit to Sidelying: Modified independent - Transfers Sit to/from Stand: Supervision Bed to/from Chair: Supervision Stand Pivot Transfers: Supervision Ambulation Weight Bearing Status: WBAT RLE, WBAT LLE Maximal Ambulation Distance (feet): 50x2+100 Total Ambulation Distance (feet): 200 Ambulation Assistance: Supervision Distance limited by?: Patient's ability Pattern: Alternating, Decreased garland, Right swing foot doesn't pass stance foot, Left sw ing foot doesn't pass stance foot, Forward flexed Assistive Device: Walker front wheeled Wheelchair Mobility Maximal Wheelchair Distance (feet): 200 Total Wheelchair Distance (feet): 200 Wheelchair: Modified Independent, Verbal instruction (occasional cues to relock brakes) Distance limited by?: Patient's ability Wheelchair Propulsion: BUE, BLE Wheelchair Type: Standard Wheelchair Surface: Linoleum Wheelchair Management: Brake Right, Brake Left BALANCE Static Standing Balance Static Standing-Balance Support: No upper extremity support Static Standing-Level of Assistance: Supervision Static Standing-Comment/Duration: 15sec, 30sec,45 sec, 20 sec High Level Balance High Level Comments: 5x3 step ups with B railing Standardized Test Five Time Vem-mh-Ltstd: 44 sec Activity Tolerance: Patient limited by fatigue, Patient limited by shortness of breath (SOB ) Nurse Made Aware: yes Safety Devices in Place: (call light) The patient demonstrated no indication of pain during therapy session. Education Completed: Education Topics: [] Rationale for PT [] PT POC [] DC planning [] Precautions [] Exercises [] Bed mobility [x] Transfer training with hand placement [] Gait training [] Stair training [] Use of gait belt [] Other Completed with: [x] Patient [] Spouse [] Significant other [] Family [] C aregiver [] Other Completed by: [x] Verbal education [] Demonstration [] Handout [] Other: Response to Education: [x] Stated Understanding [] Reinforcement necessary [] Returned demonstration [] Demonstrated understanding [] No evidence of learning [] Refused onver kelin Transaction, Provider Unknown - 11/27/2017 12:45 PM PDT Therapy Progress Note by Josy Kwok PT at 11/27/17 9094 Author: Josy Kwok PT Service: (none) Author Type: Physical Therapist Filed: 11/27/17 7310 Date of Service: 11/27/17 4336 Status: Signed Hooking Machine Operator: Josy Kwok PT (Physical Therapist) PHYSICAL THERAPY TREATMENT NOTE PT Received On: 11/27/17 Reason for Treatment: Other (comment) (L1 compression fracture) Requires PT Follow Up: Yes Follow up PT Only?: No Assistance Required: 1 person Recommendations: IRF Plan Treatment/Interventions: Continue per Primary PT POC Progress: Progressing toward goals Summary Comments: Pt supine in bed when PT arrived, agreeable to therapy. Pt requiring more frequen t rest breaks today. Became SOB with bed mobility and donning TLSO- able to recover with emily p breathing. Pt requested to use bathroom. Demosntrated fair balance while donning on doffin g pants - still requiring supervision for safety. Pt attempted to urinate twice - was unsucc essful. Pt continues to ambualte with crouched gait, however appears more stable today - les s mini buckling/trunk sway. Finished session sitting up in w/c, all needs met. Precautions Spinal Precautions: TLSO on when upright, Lumbar Other Precautions: fall risk, SpO2>/= 88% Cognition Overall Cognitive Status: Within Functional Limits Orientation Level: Oriented FUNCTIONAL MOBILITY Bed Mobility Sidelying to Sit: Modified independent - Transfers Sit to/from Stand: Supervision Ambulation Weight Bearing Status: WBAT LLE, WBAT RLE Maximal Ambulation Distance (feet): 50+75+75 Total Ambulation Distance (feet): 200ft Ambulation Assistance: Supervision Distance limited by?: Patient's ability Pattern: Alternating, Decreased garland, Right swing foot doesn't pass stance foot, Left sw ing foot doesn't pass stance foot, Forward flexed Assistive Device: Walker front wheeled Activity Tolerance: Patient limited by fatigue, Patient limited by shortness of breath (SOB ) Nurse Made Aware: yes Safety Devices in Place: (call light) The patient demonstrated no indication of pain during therapy session. Education Completed: Education Topics: [] Rationale for PT [] PT POC [] DC planning [] Precautions [] Exercises [] Bed mobility [] Transfer training with hand placement [] Gait training [] Stair training [] Use of gait belt [x] Other: activity pacing Completed with: [x] Patient [] Spouse [] Significant other [] Family [] C aregiver [] Other Completed by: [x] Verbal education [] Demonstration [] Handout [] Other: Response to Education: [x] Stated Understanding [x] Reinforcement necessary [] Returned demonstration [] Demonstrated understanding [] No evidence of learning [] Refused onver kelin Transaction, Provider Unknown - 11/27/2017 12:07 PM PDT Case Management by RONNELL Rangel at 11/27/17 1207 Author: RONNELL Rangel Service: (none) Author Type: Government Property Inspector Filed: 11/27/17 1208 Date of Service: 11/27/171206 Status: Signed Hooking Machine Operator: RONNELL Rangel (Government Property Inspector) Left ms for [facility] to call back for INR lab draw and monitoring. Aw ait call back. onver kelin Transaction, Provider Unknown - 11/27/2017 11:27 AM PDT Case Management by RONNELL Rangel at 11/27/17 1127 Author: RONNELL Rangel Service: (none) Author Type: Government Property Inspector Filed: 11/27/17 1130 Date of Service: 11/27/171126 Status: Signed Hooking Machine Operator: RONNELL Rangel (Government Property Inspector) Scheduled new PCP appointment with Dr. Nalini Jones at [facility] in [place] for FridayDecember 09 at 1300 (clinical faxed to Dr. Jones). Pt has a cardiology follow-up appointment with Dr. Knox's office on December 02 at 1015. Informed pt's son so he can be sure a nd arrive early enough for dc and then transport to [facility]. Referral sent to [facility] for physical and occupational therapy, bath aid and a RN. Left [facility] for Dr. Abilio Sanabria's nurse to see if their office can monitor pt's INR. Mariajose Bajwa, OTR/L - 11/27/2017 10:15 AM PDTFormatting of this note might be different from th e original. Therapy Progress Note by GURWINDER Mortensen at 11/27/17 1015 Author: GURWINDER Mortensen Service: (none) Author Type: Occupational Therapist Filed: 11/27/17 8886 Date of Service: 11/27/17 1015 Status: Signed Hooking Machine Operator: GURWINDER Mortensen (Occupational Therapist) OCCUPATIONAL THERAPY TREATMENT NOTE OT Received On: 11/27/17 Reason for Treatment: Deconditioning (T12 compression fx) Requires OT Follow Up: Yes Assistance Required: 1 person Workforce Planning Analyst Needed: No Family/Caregiver Present: No Recommendation: Home OT, Home PT, Home with daytime assist, Home with nighttime assist (lorne e with dtr) Equipment Recommended: Tub transfer bench Requires OT Follow Up: Yes Plan Treatment Interventions: (per OT POC) Progress: Progressing toward goals Requires OT Follow Up: Yes Focus for next session: strengthening, standing Follow up OT only? [] Yes [x] No Precautions Spinal Precautions: TLSO on when upright, Lumbar Other Precautions: fall risk, SpO2>/= 88% Summary Pt supine in bed upon OT arrival, pt agreeable to therapy. Pt required extra time to comple te using urinal. Pt participated in adl/shower, pt required extra time for SOB and rest dong ks. Bed mobility OOB mod I, into bed supervised with cues to keep knees bent, transfer to and back mod I. Pt left supine in bed at end of session, pt on 2L O2, O2 sat 95%, HR 91-99. RN notified. Safety Devices in Place: Yes Type of Devices: Call lite in place, RN notified FIM Grooming Which grooming tasks completed during this session?: Wash/rinse/dry hands, Wash/rinse/dry f jeannette, Oral care, [place] hair Patient completed % of overall grooming tasks: 100 Percent Grooming Final Score: Complete [place] Bathing Which bathing tasks were completed during this session?: Arm right, Arm left, Chest, Abdome n, Perineal area front, Buttocks, Leg upper right, Leg upper left, Leg lower left and foot, Leg lower right and foot Patient completed % of overall bathing task: 70 Percent Bathing Final Score: Moderate Assistance Upper Body Dressing Clothing Items Worn This Session: addictions recovery specialist shirt Upper Body Dressing Final Score: Complete Bryant Lower Body Dressing Clothing Items Worn This Session: Pants, Socks % Dressing Tasks Completed : 100 % Lower Body Dressing Final Score: Modified Bryant Toileting Is this a continent episode?: Yes-continue scoring (Pt stood to urinate, however did not vo id) Patient completed % of overall toileting task: 100 Percent Toileting Final Score: Complete Bryant Bladder Management Bladder Management: Level of Assistance: Set-up Transfer Bed/Chair Wheelchair Transfers: Bed, Chair, Wheelchair Final Score: Supervision/Set-up Toilet Transfer Transfers: Toilet Final Score: Activity does not occur Tub/Shower Transfer Transfers: Tub, Shower Final Score: Modified Bryant Barriers to d/c at this time include: [] Home environment [] Family support [x] Equipment needs [] Cognitive deficits impacting functional independence [x] Physical deficits impacting functional independence [x] Self-care deficits impacting functional independence [] Other Pain The patient did not demonstrate any signs of symptoms of pain throughout OT session The patient reported pain rated at a 7-8/10. RN was notified Education Completed: Education Topics: Adl Completed with: [x] Patient [] Spouse [] Significant other [] Family [] C aregiver [] Other Completed by :[x] Verbal education [] Demonstration [] Handout [] Other: Response to Education: [x] Stated Understanding [] Reinforcement necessary [] Returned demonstration [] Demonstrated understanding [] No evidence of learning [] Refused Meche Robin MS CCC-HOSPITAL COOK - 11/27/2017 9:45 AM PDTFormatting of this note might be different from the shaneka reyes. Therapy Progress Note by Meche Batista MS CCC-HOSPITAL COOK at 11/27/17 0903 Author: Meche Batista MS CCC-HOSPITAL COOK Service: (none) Author Type: Speech and Language Pa thologist Filed: 11/27/17 1016 Date of Service: 11/27/1787 Status: Signed Hooking Machine Operator: Meche Batista MS CCC-HOSPITAL COOK (Speech and Language Pathologist) SPEECH - LANGUAGE - COGNITION HOSPITAL COOK Received On: 11/27/17 Requires HOSPITAL COOK Follow Up: Yes Treatment Plan: Cognitive evaluation/treatment Treatment Frequency: 4-6 x/week Session type: Treatment Additional Pertinent History: Session targeted memory of precautions, d/c planning, and saf ety with ADLs. Pt was unaware of pocketed vitamin in the left side of his mouth, which was b right orange and visible along lips, inner cheek, gums, teeth and tongue. RN notified of poc keted vitamin from AM. Family/Caregiver Present: No Cognition Problem Solving Comments: Talked about solutions for if he fell and couldn't get up. Patimarco alvarado's voice is quiet b/c of inc'd O2 needs and he wasn't aware that if someone was in another room watching TV that he might not be heard if he tried to call for help. Therapist wrote do wn on his Team Conference report to remind his son Blayne to stay within earshot during times where he may need inc'd supervision. Organization Comments: Discussed how he has benefited from his board and having a large sindhu endar to which he could refer when he goes to his son's house. Memory Comments: Pt able to read board and reference it for his new d/c date that was tran ed yesterday. When asked why the date change, he said, "So I can get stronger before being o n my own." Pt u/a to state what equipment he needs for bathroom use. Practiced saying them a loud and remembering them in the session. Goals are progressing unless otherwise indicated. Education Completed Education Topics: [x] Cognition: Educate on speech-language pathology role, sessions activities, results, sa fety precautions, plan of care, and homework activities [] Speech: Educate on speech-language pathology role, sessions activities, results, plan of care, and homework activities. [] Language: Educate on speech-language pathology role, sessions activities, results, pl an of care, and homework activities. Completed with: [x] Patient [] Spouse [] Significant other [] Family [] C aregiver [] Other Completed by: [x] Verbal education [] Demonstration [x] Handout [] Other: Response to Education: [x] Stated Understanding [x] Reinforcement necessary [] Retur asa demonstration [] Demonstrated understanding [] No evidence of learning [] Refused onversio n Transaction, Provider Unknown - 11/27/2017 9:26 AM PDTFormatting of this note might be di fferent from the original. Case Management by RONNELL Rangel at 11/27/17925 Author: RONNELL Rangel Service: (none) Author Type: Government Property Inspector Filed: 11/27/17925 Date of Service: 11/27/17925 Status: Signed Hooking Machine Operator: RONNELL Rangel (Government Property Inspector) Faxed order for MWC and FWW to [facility]. Wing Micah Lopes MD - 11/27/2017 6:45 AM PDTFormatting of this note might be different from the orig inal. Progress Notes by Wing Micah Jain MD at 11/27/17644 Author: Wing Micah Jain MD Service: (none) Author Type: Physician Filed: 11/27/17645 Date of Service: 11/27/17644 Status: Signed Hooking Machine Operator: Wing Micah Jain MD (Physician) [facility] Service: Physical Medicine & Rehab Progress Note Hospital Day: LOS: 13 days SUBJECTIVE Patient Summary: The patient's INR at 1.9, continue Coumadin 3 mg daily. Pt reports no pain. Session focused on stair training with railing and parallel bar activit ies. Pt completed stairs safely, requiring rest breaks between bouts due to SOB. Pt tolerate d retro ambulation and side stepping in parallel bars, requiring rest breaks to catch breath . Pt able to propel self upstairs back to room with 1 rest break ROS: No current complaints of neurological problems such as new weakness, numbness, tinglin g, visual changes. No complaints of CVS, pulmonary, GI, , integument, probs. No complaints of SOB,CP,NAUSEA, swallowing problems or pain problems. No complaints of sleeping difficult y. No complaints of anxiety or depression. Scheduled Medications aspirin 81 mg Oral Daily atorvastatin 20 mg Oral Nightly calcitonin (salmon) 1 spray Alternating Nares Daily co-enzyme Q-10 200 mg Oral Daily digoxin 0.125 mg Oral Daily diltiazem 240 mg Oral Daily doxazosin 2 mg Oral Nightly furosemide 40 mg Oral Daily Lidocaine 1 patch Transdermal Daily methocarbamol 750 mg Oral 4x Daily methylnaltrexone 12 mg Subcutaneous Daily multivitamin with minerals 1 tablet Oral Daily oxybutynin 10 mg Oral TID oxyCODONE 5 mg Oral 4x Daily senna 2 tablet Oral Nightly spironolactone 12.5 mg Oral Daily umeclidinium-vilanterol 1 puff Inhalation Daily warfarin 3 mg Oral Daily PRN Medications acetaminophen OR acetaminophen, ipratropium-albuterol, magnesium hydroxide, ondansetron OR ondansetron, oxyCODONE-acetaminophen, oxyCODONE-acetaminophen, polyethylene glycol, zolpidem OBJECTIVE Vital Signs: BP 144/71 (BP Location: Left upper arm) | Pulse 88 | Temp 97.3 F (36.3 C) (Oral) | R santiago 16 | Ht 1.753 m (5' 9") | Wt 67.5 kg (148 lb 13 oz) | SpO2 94% | BMI 21.98 kg/m General Appearance: Alert, cooperative, no distress. Head: symmetrical Eyes: reactive Lungs: clear Chest wall: nontender Heart: regular Abdomen: soft Extremities: Negative edema Pulses: regular Skin: intact DATA No results found for this or any previous visit (from the past 24 hour(s)). 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 2) Mobility ADL/dysfunction - continue OT for ADL's, IADL's, functional transfers, equipmen t evaluation, family training. 3) Mobility dysfunction - continue 24 hr. Rehab nursing for bowel, bladder skin pain sleep. Wing Demetra Jain MD 11/27/20176:45 AM onversion Transaction, Provider Unknown - 11/26/2017 6:50 PM PDTFormatting of this note might be different from t robert original. Therapy Progress Note by Enzo Chan at 11/26/171849 Author: Enzo Chan Service: (none) Author Type: Recreational Therapist Filed: 11/26/171849 Date of Service: 11/26/171849 Status: Signed Hooking Machine Operator: Enzo Chan (Recreational Therapist) 11/26/171846 Attendance Activity Leisure planning (future activities) Therapeutic Recreation Social Skills Initiates conversation or social interaction Physical Functioning Skills Increase tolerance Cognitive Function (good) Leisure Participation Active participation Satisfied with Leisure Interest Yes Time Spent With Patient Minutes 15 Requires REC Follow Up Yes (continue history journal, possible [employer] project, cards) onver kelin Transaction, Provider Unknown - 11/26/2017 4:40 PM PDT Case Management by RONNELL Rangel at 11/26/17 1640 Author: RONNELL Rangel Service: (none) Author Type: Government Property Inspector Filed: 11/26/17 1641 Date of Service: 11/26/17 1640 Status: Signed Hooking Machine Operator: RONNELL Rangel (Government Property Inspector) Scheduled family trng with pt's son for Friday at 0930. onver kelin Transaction, Provider Unknown - 11/26/2017 4:34 PM PDT Case Management by RONNELL Rangel at 11/26/17 1634 Author: RONNELL Rangel Service: (none) Author Type: Government Property Inspector Filed: 11/26/17 1635 Date of Service: 11/26/17 1634 Status: Signed Hooking Machine Operator: RONNELL Rangel (Government Property Inspector) The interdisciplinary team rounded with the patient after team conference. A copy of the te am conference was provided and questions were answered. Verbal update given to son and DIL via phone. RONNELL RANGEL 11/26/2017 4:34 PM onver kelin Higginsaction, Provider Unknown - 11/26/2017 3:00 PM PDT Therapy Progress Note by EVANGELIST Braun at 11/26/17 1500 Author: EVANGELIST Braun Service: (none) Author Type: Physical Therapist Filed: 11/26/17 1631 Date of Service: 11/26/17 1500 Status: Attested Hooking Machine Operator: EVANGELIST Braun (Physical Therapist) Cosigner: Josy Kwok PT at 155 Attestation signed by Josy Kwok PT at 11/26/17 155 Student therapist educationally participated in therapy session under the supervision of brent vazquez licensed therapist. This note was created by the student therapist and co-signed by the [facility] centered therapist. Information in this note may have been obtained from flowsheet charting. T his note is co-signed at the treatment plan/progress note level. The patient approved of brent vazquez student's role in care. PHYSICAL THERAPY TREATMENT NOTE PT Received On: 11/26/17 Reason for Treatment: Other (comment) (L1 compression fracture)) Requires PT Follow Up: Yes Follow up PT Only?: No Assistance Required: 1 person Recommendations: IRF Plan Treatment/Interventions: Continue per Primary PT POC Progress: Progressing toward goals Summary Comments: Pt supine in bed when PT arived, agreeable to therapy. Pt reports no pain. Sessio n focused on stair training with railing and parallel bar activities. Pt completed stairs sa mihir, requiring rest breaks between bouts due to SOB. Pt tolerated retro ambulation and side stepping in parallel bars, requiring rest breaks to catch breath. Pt able to propel self up stairs back to room with 1 rest break. pt could benefit from continued therapy to improve en durance and decrease SOB during activity. Session endded supine in bed, all needs met. Precautions Spinal Precautions: TLSO on when upright, Lumbar Other Precautions: fall risk, SpO2>/= 88% Cognition Overall Cognitive Status: Within Functional Limits Orientation Level: Oriented FUNCTIONAL MOBILITY Bed Mobility Rolling: Supervison, Modified independent (bed rail) Supine to Sit: Supervision Sit to Supine: Supervision Sidelying to Sit: Modified independent Sit to Sidelying: Supervision Scooting : Modified independent - Transfers Sit to/from Stand: Supervision Bed to/from Chair: Supervision Stand Pivot Transfers: Supervision Stairs Number of Stairs: 3x2 Stairs Assistance: Minimal assist Number of stairs limited by?: Patient's ability Stair Management Technique: Ojmi-uzjh-dati, Step-to, Rails bilateral, Rail on right ascendi ng Wheelchair Mobility Maximal Wheelchair Distance (feet): 200 Total Wheelchair Distance (feet): 200 Wheelchair: Modified Independent Distance limited by?: Therapist/staff discretion Wheelchair Propulsion: BUE, BLE Wheelchair Type: Standard Wheelchair Surface: Linoleum Wheelchair Management: Brake Right, Brake Left High Level Balance Side Stepping: Right, Left, Parallel bars (2x) Backwards Walking: Parallel bars (2x) Activity Tolerance: Patient limited by fatigue Nurse Made Aware: yes Safety Devices in Place: (call light) The patient demonstrated no indication of pain during therapy session. Education Completed: Education Topics: [] Rationale for PT [] PT POC [] DC planning [] Precautions [] Exercises [] Bed mobility [] Transfer training with hand placement [] Gait training [x] Stair training [] Use of gait belt [] Other Completed with: [x] Patient [] Spouse [] Significant other [] Family [] C aregiver [] Other Completed by: [x] Verbal education [] Demonstration [] Handout [] Other: Response to Education: [x] Stated Understanding [] Reinforcement necessary [] Returned demonstration [] Demonstrated understanding [] No evidence of learning [] Refused Mariajose Bajwa OTR/L - 11/26/2017 1:00 PM PDTFormatting of this note might be different from brent vazquez original. Therapy Progress Note by GURWINDER Mortensen at 11/26/17 1300 Author: GURWINDER Mortensen Service: (none) Author Type: Occupational Therapist Filed: 11/26/17 1408 Date of Service: 11/26/17 1300 Status: Signed Hooking Machine Operator: GURWINDER Mortensen (Occupational Therapist) OCCUPATIONAL THERAPY TREATMENT NOTE OT Received On: 11/26/17 Reason for Treatment: Deconditioning (T12 compression fx) Requires OT Follow Up: Yes Assistance Required: 1 person Workforce Planning Analyst Needed: No Family/Caregiver Present: No Recommendation: Home OT, Home PT, Home with daytime assist, Home with nighttime assist (lorne e with dtr) Equipment Recommended: Tub transfer bench Requires OT Follow Up: Yes Plan Treatment Interventions: (per OT POC) Progress: Progressing toward goals Requires OT Follow Up: Yes Focus for next session: standing tolerance Follow up OT only? [] Yes [x] No Precautions Spinal Precautions: TLSO on when upright, Lumbar Other Precautions: fall risk, SpO2>/= 88% Summary Pt seated in in room upon OT arrival, pt agreeable to therapy. Pt participated in home s afety assessment, 30 sec chair test, and functional mobility approx 230 ft with FWW sba on 3 L O2 NC, pt sat >90%. Pt transferred from to bed via bedrail mod I. Bed mobility into bed supervised, reminder required for log roll tech. Pt left supine in bed with phone to [facility] to order dinner, no other needs identified. RN notified. Additional Activities Additional Activities Comments: Home safety assessment and 30 sec chair test completed, see results below: 30 second chair test Name: Yeyo Casarez Date: 11/26/2017 Time: 2:07 PM Instructions to the patient: 1. Sit in the middle of the chair. 2. Place each hand on the opposite shoulder crossed at the wrists. 3. Place your feet flat on the floor. 4. Keep your back straight and keep your arms against your chest. 5. On Go , rise to a full standing position and then sit back down again. 6. Repeat this for 30 seconds. On Go begin timing.# of stands in 30 seconds: Number of times patient came to a full standing position in 30 seconds and record it below. If the patient is over [facility] to a standing position when 30 seconds have elapsed, count i t as a stand. If the patient must use his or her arms to stand then stop the test and record 0 for the number below. Number of reps: 6 Modifications to test: armrests (chair height, assist needed, use of armrests) Scores less than 8 (unassisted) stands are associated with lower levels of functional abili ty Age # of stands-women (avg) # of stands-men 60-64 12-17 14-19 65-79 -06-23 70-74 04-20 75-79 04-20 80-84 03-20 85-90 02-16 90-95 10-15 [facility] Occupational Therapy Department Home Safety Assessment 1. What is the month? _may 2. What is the day? _wed 3. What is the year? _2018 4. If there is a storm at night and the electricity went off, what would you do? (get a fla shlight, light a candle, go to a friends house for the night, call the special events manager) light candle s 5. What would you do if it was still off the next day? (call the [employer]) call power co 6. What type of heat source do you have in your home? (electricity, gas, oil, wood, other) electricity 7. If it is snowing outside and your heat wasn t working, what would you do? (put on warm clothing, stay with a friend, call the [employer]/gas company) put on warm clothing ____ 8. Who would you call to fix your heat? [place] 9. If there is a tear in the carpet between your bed and the bathroom , what could happen? fall 10. What should you do about the tear? (do not score a point if pt says to cover tear) tear out carpet 11. The electric wall outlet where a lamp is plugged in begins to smoke, what should you do first? (turn off the breaker, fisher scallop, call fire department to find out) turn off dong ker 12. What should you do next? (pull plug if breaker is off, fisher scallop, etc) pull plug out 13. Would you try to use this outlet again? (not until it s fixed) no, replace it 14. What is our National Emergency Number? (911) 911 15. What emergency services does 911 connect you with? (Fire, police, ambulance-must say 2 services to get the point) fire, police, medics 16. Would you call 911 if you have a grease fire in your frying young? (no if the fire is con tained in young, if uncontrolled, then yes) yes 17. What would you do to put out a grease fire? (place a lid over it, sprinkle baking soda or salt on it) smother it 18. If you cotton picker the phone to call 911 during an emergency and there is no dial tone, wha t should you do? (wiggle the connection, use a cell phone, go to neighbor/pay phone, flag do wn a car) use cell phone, go outside and get someones' attention 19. Name a situation where you would need to call 911? (fire, person unconscious, saw an ac cident, heaving bleeding, etc) burglary 20. Name another situation where you would need to call 911? (fire, person unconscious, saw an accident, heaving bleeding, etc) bad accident 21. If your smoke alarm goes off, what would you do? (look for fire or smoke, get out and c all 911, wave a paper under the alarm to shut it off if you know it is safe, etc) look for f jennifer/smoke, then change battery if no fire 22. What would you do if you fell and couldn t get up and the phone was out of reach? (pu ll the phone cord to bring the phone down where you can reach it, crawl to the door and yell for help, push life alert, use cell phone, etc) crawl to phone Assessment completed with: __x__ Independent responses-pt should do well at home ____ Prompting to clarify or for more complete responses-pt missed 25-50%-pt may need supe rvision for safety at home ____ Unable to give appropriate responses-pt missed more than 50%-pt may be unsafe without assistance at home-recommend 24 hour supervision Patient score: __22__/22 Additional comments: Therapist: Mariajose PURDY, [facility] Date: 11/26/[address]: Yes Type of Devices: Call lite in place, RN notified Barriers to d/c at this time include: [] Home environment [] Family support [] Equipment needs [] Cognitive deficits impacting functional independence [x] Physical deficits impacting functional independence [x] Self-care deficits impacting functional independence [] Other Pain The patient reported pain rated at a 7/10. RN was notified Education Completed: Education Topics: 30 sec chair test, home safety assessment, functional mobility Completed with: [x] Patient [] Spouse [] Significant other [] Family [] C aregiver [] Other Completed by :[x] Verbal education [x] Demonstration [] Handout [] Other: Response to Education: [x] Stated Understanding [] Reinforcement necessary [] Returned demonstration [] Demonstrated understanding [] No evidence of learning [] Refused Mariajose Bajwa OTR/L - 11/26/2017 11:30 AM PDT Therapy Progress Note by GURWINDER Mortensen at 11/26/17 1130 Author: GURWINDER Mortensen Service: (none) Author Type: Occupational Therapist Filed: 11/26/17 1241 Date of Service: 11/26/17 1130 Status: Signed Hooking Machine Operator: GURWINDER Mortensen (Occupational Therapist) OCCUPATIONAL THERAPY TREATMENT NOTE OT Received On: 11/26/17 Reason for Treatment: Deconditioning (T12 compression fx) Requires OT Follow Up: Yes Assistance Required: 1 person Workforce Planning Analyst Needed: No Family/Caregiver Present: No Recommendation: (cont IPR) Equipment Recommended: (tbd) Requires OT Follow Up: Yes Plan Treatment Interventions: (per OT POC) Progress: Progressing toward goals Requires OT Follow Up: Yes Focus for next session: Standing tolerance, adls with AE Follow up OT only? [] Yes [x] No Precautions Spinal Precautions: TLSO on when upright, Lumbar Other Precautions: fall risk, SpO2>/= 88% Summary Pt seated in wc in room upon OT arrival, pt agreeable to therapy. Pt participated in standi ng tolerance without UE support. 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 Wc propulsion mod I from room to DR using B LEs. Pt left sitti ng in wc in DR with lunch tray at end of session with no other needs identified. O2 sats >90 % on 3L O2 NC. Functional Standing Tolerance Time: 1 min 45 sec; 1 min 30 sec; 1 min 45 sec Activity: folding towels Comments: Pt able to tolerate standing for approx 1.5 min while completing a UE task with n o UE support, pt had difficulty with task, more SOB and demo'd "sinking" posture, increased flexion at B knees, pt able to self correct x 3, then unable and required a seated rest dong k. Pt required approx 2 min btw sets to recover normal breathing pattern. Safety Devices in Place: Yes Type of Devices: Call lite in place, Wheelchair, RN notified Barriers to d/c at this time include: [] Home environment [] Family support [x] Equipment needs [] Cognitive deficits impacting functional independence [x] Physical deficits impacting functional independence [x] Self-care deficits impacting functional independence [] Other Pain The patient reported pain rated at a 7/10. RN was notified Education Completed: Education Topics: Standing tolerance Completed with: [x] Patient [] Spouse [] Significant other [] Family [] C aregiver [] Other Completed by :[x] Verbal education [x] Demonstration [] Handout [] Other: Response to Education: [x] Stated Understanding [] Reinforcement necessary [] Returned demonstration [] Demonstrated understanding [] No evidence of learning [] Refused onversion Transa ctmalaika, Provider Unknown - 11/26/2017 10:45 AM PDT Therapy Progress Note by EVANGELIST Braun at 11/26/17 1042 Author: EVANGELIST Braun Service: (none) Author Type: Physical Therapist Filed: 11/26/171156 Date of Service: 11/26/171044 Status: Attested Hooking Machine Operator: EVANGELIST Braun (Physical Therapist) Cosigner: Josy Kwok PT at 1156 Attestation signed by Josy Kwok PT at 11/26/171156 Student therapist educationally participated in therapy session under the supervision of brent vazquez licensed therapist. This note was created by the student therapist and co-signed by the nellie lawrence therapist. Information in this note may have been obtained from flowsheet charting. T his note is co-signed at the treatment plan/progress note level. The patient approved of brent vazquez student's role in care. PHYSICAL THERAPY TREATMENT NOTE PT Received On: 11/26/17 Reason for Treatment: Other (comment) (L1 compression fracture) Requires PT Follow Up: Yes Follow up PT Only?: No Assistance Required: 1 person Workforce Planning Analyst Needed: No Recommendations: IRF Plan Treatment/Interventions: Continue per Primary PT POC Progress: Progressing toward goals Summary Comments: Pt received supine in bed at start of session, agreeable to therapy. Pt reports n o pain. Session focused on FWW management in kitchen with use of powerhouse mechanic helper. Pt completed task, requiring verbal cues for proper walker placement >75%. Lidocane patch fell onto floor duri ng session, RN Marisol made aware. Pt presents with increased SOB during activitiy, requiring 3 rest breaks. Pt could benefit from activity pacing to ensure safety. Pt could benefit from continued therapy to improve endurance and stair train. Session ended supoine in bed, all ne eds met. Precautions Spinal Precautions: TLSO on when upright, Lumbar Other Precautions: (Fall risk, SP02>/=88%, pre medicate for ) Cognition Overall Cognitive Status: Within Functional Limits Orientation Level: Oriented FUNCTIONAL MOBILITY Bed Mobility Rolling: Supervison Sit to Supine: Supervision - Transfers Sit to/from Stand: Minimal assist (steadying/contact guard), Verbal instruction Bed to/from Chair: Supervision Ambulation Weight Bearing Status: WBAT RLE, WBAT LLE Maximal Ambulation Distance (feet): 75x2 Total Ambulation Distance (feet): 150 Ambulation Assistance: Supervision Distance limited by?: Therapist/staff discretion Pattern: Alternating, Decreased garland, Right swing foot doesn't pass stance foot, Left sw ing foot doesn't pass stance foot, Forward flexed Assistive Device: Walker front wheeled High Level Balance High Level Comments: cone scavenger martinez in kitchen Activity Tolerance: Patient limited by fatigue Nurse Made Aware: yes Safety Devices in Place: (call light) The patient demonstrated no indication of pain during therapy session. Education Completed: Education Topics: [] Rationale for PT [] PT POC [] DC planning [] Precautions [] Exercises [] Bed mobility [x] Transfer training with hand placement [] Gait training [] Stair training [] Use of gait belt [] Other Completed with: [x] Patient [] Spouse [] Significant other [] Family [] C aregiver [] Other Completed by: [x] Verbal education [] Demonstration [] Handout [] Other: Response to Education: [x] Stated Understanding [] Reinforcement necessary [] Returned demonstration [] Demonstrated understanding [] No evidence of learning [] Refused Mariajose Bajwa OTR/L - 11/25/2017 2:55 PM PDTFormatting of this note might be different from brent alberto. Therapy Progress Note by GURWINDER Mortensen at 11/25/17 5537 Author: GURWINDER Mortensen Service: (none) Author Type: Occupational Therapist Filed: 11/25/17 6590 Date of Service: 11/25/172 Status: Signed Hooking Machine Operator: GURWINDER Mortensen (Occupational Therapist) OCCUPATIONAL THERAPY TREATMENT NOTE OT Received On: 11/25/17 Reason for Treatment: Deconditioning (T12 compression fx) Requires OT Follow Up: Yes Assistance Required: 1 person Workforce Planning Analyst Needed: No Family/Caregiver Present: No Recommendation: (cont IPR) Equipment Recommended: (none. pt now has hip kit in room) Requires OT Follow Up: Yes Plan Treatment Interventions: (per OT POC) Progress: Progressing toward goals Requires OT Follow Up: Yes Focus for next session: transfers, adl using AE Follow up OT only? [] Yes [x] No Precautions Spinal Precautions: TLSO on when upright, Lumbar Other Precautions: Fall risk, SP02>/=88%, pre medicate for pain Summary Pt supine in bed upon OT arrival, pt agreeable to therapy. Pt participated in bed mobility OOB mod I, donning of TLSO with supervision, pt improved with his ability to kait using "ove r the head" method. Pt then participated in functional mobility with FWW sba from room to DR and back on 3L O2 NC, and circuit transfer training x 4 including the lift recliner chair s ba that pt states family is purchasing currently. Pt educated on controls, pt used control t o raise himself to max height and lower himself to max lower, OT educated him on positioning if needed with pillows for additional support. Pt stated understanding, pt left sitting in wc in room with family at end of session with no other needs identified. Pts O2 sats 95%. Safety Devices in Place: Yes Type of Devices: Call lite in place, Wheelchair, Other (comment) (family present) Barriers to d/c at this time include: [] Home environment [] Family support [x] Equipment needs [] Cognitive deficits impacting functional independence [x] Physical deficits impacting functional independence [x] Self-care deficits impacting functional independence [] Other Pain The patient did not demonstrate any signs of symptoms of pain throughout OT session Education Completed: Education Topics: transfers Completed with: [x] Patient [] Spouse [] Significant other [] Family [] C aregiver [] Other Completed by :[x] Verbal education [x] Demonstration [] Handout [] Other: Response to Education: [x] Stated Understanding [] Reinforcement necessary [] Returned demonstration [] Demonstrated understanding [] No evidence of learning [] Refused onversion Transa ction, Provider Unknown - 11/25/2017 1:09 PM PDT Case Management by RONNELL Rangel at 11/25/17 4062 Author: RONNELL Rangel Service: (none) Author Type: Government Property Inspector Filed: 11/25/17 7573 Date of Service: 11/25/17 1305 Status: Signed Hooking Machine Operator: Dashawn Lora, POPULATION GENETICIST (Government Property Inspector) Called pt's son and JOHNNY to inform them of change in Team Conference mtg. They are advocati ng for addtl time on rehab. Pt also expressed feeling concerned about being ready to dc on Friday. Son and JOHNNY won't make it over for Team tomorrow as they have DME being delivered i n the afternoon. They asked POPULATION GENETICIST to call and give an update via phone after Team tomorrow. onver kelin Transaction, Provider Unknown - 11/25/2017 11:15 AM PDT Therapy Progress Note by Dulce Sanders PT at 11/25/17 2101 Author: Dulce Sanders PT Service: (none) Author Type: Physical Therapist Filed: 11/25/17 4752 Date of Service: 11/25/171114 Status: Signed Hooking Machine Operator: Dulce Sanders PT (Physical Therapist) PHYSICAL THERAPY TREATMENT NOTE PT Received On: 11/25/17 Reason for Treatment: Other (comment) (L1 compression fx) Requires PT Follow Up: Yes Follow up PT Only?: No Focus for Next Treatment: Stair Training, Family Training/Education (see comment), Bed Mobi lity Technique, Transfer Technique Assistance Required: 1 person Workforce Planning Analyst Needed: No Recommendations: IRF Plan Treatment/Interventions: Continue per Primary PT POC Progress: Progressing toward goals Summary Comments: Pt received upright in manual wheelchair donning TLSO and 3LPM nc and agreeable t o PT session noting 7/10 prior to mobilization. Treatment emphasis for increased ambulation distance, ongoing education/practice for transfer safety. Pt continues to require cueing for safety during transfers for appropriate UE placement and alignment at walker frame. Additio mary pt with fair novel trial of transfer in/out of car requiring up to modA for LE managem ent to ensure no rotation through the lumbar spine. Pt to continue to benefit from further s killed PT to promote increased activity tolerance while progressing independence and improvi ng compliance with spinal precautions. Pt returned end of session to upright in manual wheel chair with brace and LPM continued, call light in reach with all needs met. Precautions Spinal Precautions: TLSO on when upright, Lumbar Other Precautions: fall risk, SpO2>/=88% Cognition Overall Cognitive Status: Within Functional Limits Orientation Level: Oriented Oriented: x 4 FUNCTIONAL MOBILITY Transfers Sit to/from Stand: Standby assist, Supervision, Verbal instruction Car Transfer: Moderate assist, Safety concerns Ambulation Weight Bearing Status: WBAT RLE, WBAT LLE Maximal Ambulation Distance (feet): 54ft Total Ambulation Distance (feet): 60ft Ambulation Assistance: Standby assist, Verbal instruction Distance limited by?: Patient's ability (SOB, fatigue) Pattern: Alternating, Decreased garland, Right swing foot doesn't pass stance foot, Left sw ing foot doesn't pass stance foot, Right step height adequate, Left step height adequate, Fo rward flexed (crouched gait) Assistive Device: Walker front wheeled Wheelchair Mobility Maximal Wheelchair Distance (feet): 200ft Total Wheelchair Distance (feet): 210ft Wheelchair: Supervision Distance limited by?: Patient's ability Wheelchair Propulsion: BUE, BLE Wheelchair Type: Standard Wheelchair Surface: Carpet, Linoleum Wheelchair Management: Brake Right, Brake Left BALANCE Static Standing Balance Static Standing-Balance Support: No upper extremity support Static Standing-Level of Assistance: Minimal assist Static Standing-Comment/Duration: 90 seconds Activity Tolerance: Patient limited by pain, Patient limited by fatigue, Patient limited by shortness of breath (SOB) Nurse Made Aware: SELAM chang Safety Devices in Place: Yes Type of Devices: (call light in reach) Restraints Initially in Place: No Pt reporting 7/10 lumbar spine prior to mobility in sitting position, declines PRN medicati on with reduction to 5/10 following PT session with nursing aware. Education Completed: Education Topics: [x] Rationale for PT [x] PT POC [x] DC planning [x] Precautions [x] Exercises [x] Bed mobility [x] Transfer training with hand placement [x] Gait training [] Stair training [] Use of gait belt [x] Other: car transfer Completed with: [x] Patient [] Spouse [] Significant other [] Family [] C aregiver [] Other Completed by: [x] Verbal education [x] Demonstration [] Handout [] Other: Response to Education: [x] Stated Understanding [x] Reinforcement necessary [x] Returned demonstration [x] Demonstrated understanding [] No evidence of learning [] Refused Mariajose Bajwa OTR/Gaby - 11/25/2017 10:15 AM PDTFormatting of this note might be different from brent vazquez original. Therapy Progress Note by GURWINDER Mortensen at 11/25/17 1015 Author: GURWINDER Mortensen Service: (none) Author Type: Occupational Therapist Filed: 11/25/17 1212 Date of Service: 11/25/17 1015 Status: Signed Hooking Machine Operator: GURWINDER Mortensen (Occupational Therapist) OCCUPATIONAL THERAPY TREATMENT NOTE OT Received On: 11/25/17 Reason for Treatment: Deconditioning (t12 compression fx) Requires OT Follow Up: Yes OT Eval/Reassessment Date: 11/25/17 Assistance Required: 1 person Workforce Planning Analyst Needed: No Family/Caregiver Present: No Recommendation: (cont IPR) Equipment Recommended: Faculty Neuropsychologist, Sock aid, Other (comment) Requires OT Follow Up: Yes Plan Treatment Interventions: (per OT POC) Progress: Progressing toward goals OT Frequency: 4-6 x/wk Care Duration (Days): 7 Days Requires OT Follow Up: Yes Focus for next session: AE training, transfers with FWW Follow up OT only? [] Yes [x] No Precautions Spinal Precautions: TLSO on when upright, Lumbar Other Precautions: Fall risk, SP02>/=88%, pre medicate for pain Summary Pt supine in bed upon OT arrival, pt agreeable to therapy. Pt participated in adls seated i n wc. Bed mobility mod I, STS to FWW sba, functional mobility with FWW to BR sba. Pt left si tting in wc for PT arrival at end of session with no other needs identified. Pt educated on alternative method for donning/doffing TLSO. Pt required min A and demo for first attempt, will continue to need practice to inc indep. Safety Devices in Place: Yes Type of Devices: Call lite in place FIM Grooming Which grooming tasks completed during this session?: Oral care, [place] hair, Wash/rinse/dry face, Shave face Patient completed % of overall grooming tasks: 100 Percent Grooming Final Score: Complete Bryant Upper Body Dressing Clothing Items Worn This Session: addictions recovery specialist shirt Upper Body Dressing Final Score: Supervision/Set-up Lower Body Dressing Clothing Items Worn This Session: Pants, Socks % Dressing Tasks Completed : 60 % Lower Body Dressing Final Score: Moderate Assistance Transfer Bed/Chair Wheelchair Transfers: Bed, Chair, Wheelchair Final Score: Supervision/Set-up Comprehension Comprehension Final Score: 5 - Supervision/set-up Expression Expression Final Score : Complete independence Social Interaction Social Interaction Final Score: Complete Bryant Problem Solving Problem Solving Final Score: Supervision/Set-up Memory Memory Final Score: Supervision/Set-up Barriers to d/c at this time include: [] Home environment [] Family support [x] Equipment needs [] Cognitive deficits impacting functional independence [x] Physical deficits impacting functional independence [x] Self-care deficits impacting functional independence [] Other Pain The patient reported pain rated at a 8/10. RN was notified Education Completed: Education Topics: Adl, transfers, bed mobility Completed with: [x] Patient [] Spouse [] Significant other [] Family [] C aregiver [] Other Completed by :[x] Verbal education [x] Demonstration [] Handout [] Other: Response to Education: [x] Stated Understanding [x] Reinforcement necessary [] Returned demonstration [] Demonstrated understanding [] No evidence of learning [] Refused onversion Transsridhar alberto, Provider Unknown - 11/25/2017 9:45 AM PDT Therapy Progress Note by SARAH NewellS at 11/25/1791 Author: SARAH NewellS Service: (none) Author Type: Speech Therapist Filed: 11/25/171118 Date of Service: 11/25/17944 Status: Attested Hooking Machine Operator: SARAH NewellS (Speech Therapist) Cosigner: MS CHAYITO AlvarezS LP at 11/25/171138 Attestation signed by Meche Batista MS CCC-HOSPITAL COOK at 11/25/171138 Student therapist educationally participated in therapy session under the supervision of brent vazquez licensed therapist. This note was created by the student therapist and co-signed by the [facility] centered therapist. Information in this note may have been obtained from flowsheet charting. T his note is co-signed at the treatment plan/progress note level. The patient approved of e student's role in care. SPEECH - LANGUAGE - COGNITION HOSPITAL COOK Received On: 11/25/17 Requires HOSPITAL COOK Follow Up: Yes Treatment Plan: Cognitive evaluation/treatment Treatment Frequency: 4-6 x/week Session type: Treatment Additional Pertinent History: Pt alert and cooperative during session. Able to add 3 events to his calendar with moderate assist. Pt needed reminders to recall what button to push to accurately navigate his phone. Pt may benefit from using speech to text on his phone. When a sked if he would still like to continue working on adding events to his calendar on his phon e, he said yes, even though it was hard for him. Expression Primary Mode of Expression: Verbal Cognition Problem Solving Comments: Pt needed moderate assist to problem solve adding events to his c alendar on his phone. Memory Comments: Struggled w/ recalling how to navigate his phone. Relied on cues from ST t o help him remember what step came next. 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 Memory/Recall Goals Windows Server Engineer Goals: Increased recall Pt will demonstrate increased recall of information : For basic ADLs, New/revised goal, Wit h min cues Short Term Goals: Recall 3 items, Recall activities/events Pt will recall activities/events : [address] session, Daily activities, With min cues, In 80% of trials, Goal progressing Pt will recall 3 items after a delay : After 10 min delay, With min cues, In 80% of trials, Goal progressing Education Completed Education Topics: [x] Cognition: Educate on speech-language pathology role, sessions activities, results, sa fety precautions, plan of care, and homework activities [] Speech: Educate on speech-language pathology role, sessions activities, results, plan of care, and homework activities. [x] Language: Educate on speech-language pathology role, sessions activities, results, p [place] of care, and homework activities. Completed with: [x] Patient [] Spouse [] Significant other [] Family [] C aregiver [] Other Completed by: [x] Verbal education [] Demonstration [] Handout [] Other: Response to Education: [x] Stated Understanding [] Reinforcement necessary [] Return ed demonstration [x] Demonstrated understanding [] No evidence of learning [] Refused Savita Sandoval, [facility]-S 11/25/2017 Wing Micah Lopes MD - 11/25/2017 7:15 AM PDTFormatting of this note might be different from the orig inal. Progress Notes by Wing Micah Jain MD at 11/25/17714 Author: Wing Micah Jain MD Service: (none) Author Type: Physician Filed: 11/25/17715 Date of Service: 11/25/17714 Status: Signed Hooking Machine Operator: Wing Micah Jain MD (Physician) [facility] Service: Physical Medicine & Rehab Progress Note Hospital Day: LOS: 11 days SUBJECTIVE Patient Summary: The patient's INR at 1.8, will return to COumadin 3 mg daily, rechec k INR tomorrow. Tinetti Balance Assessment as pt. lives alone. Patient scored 18/28 w/FWW indicating high fall risk. PT reviewing importance of having someone w/him for all upright mob due to fall risk. PT educating pt. on importance of mwc and FWW for discharge. ROS: No current complaints of neurological problems such as new weakness, numbness, tinglin g, visual changes. No complaints of CVS, pulmonary, GI, , integument, probs. No complaints of SOB,CP,NAUSEA, swallowing problems or pain problems. No complaints of sleeping difficult y. No complaints of anxiety or depression. Scheduled Medications aspirin 81 mg Oral Daily atorvastatin 20 mg Oral Nightly calcitonin (salmon) 1 spray Alternating Nares Daily co-enzyme Q-10 200 mg Oral Daily digoxin 0.125 mg Oral Daily diltiazem 240 mg Oral Daily doxazosin 2 mg Oral Nightly furosemide 40 mg Oral Daily Lidocaine 1 patch Transdermal Daily methocarbamol 750 mg Oral 4x Daily methylnaltrexone 12 mg Subcutaneous Daily multivitamin with minerals 1 tablet Oral Daily oxybutynin 10 mg Oral TID oxyCODONE 5 mg Oral 4x Daily senna 2 tablet Oral Nightly spironolactone 12.5 mg Oral Daily umeclidinium-vilanterol 1 puff Inhalation Daily warfarin 3 mg Oral Daily PRN Medications acetaminophen OR acetaminophen, ipratropium-albuterol, magnesium hydroxide, ondansetron OR ondansetron, oxyCODONE-acetaminophen, oxyCODONE-acetaminophen, polyethylene glycol, zolpidem OBJECTIVE Vital Signs: BP 134/78 (BP Location: Right upper arm) | Pulse 92 | Temp 96.8 F (36 C) (Oral) | Re sp 18 | Ht 1.753 m (5' 9") | Wt 67.9 kg (149 lb 12.8 oz) | SpO2 95% | BMI 22.12 kg/m General Appearance: Alert, cooperative, no distress. Head: symmetrical Eyes: reactive Lungs: clear Chest wall: nontender Heart: regular Abdomen: soft Extremities: Negative edema Pulses: regular Skin: intact DATA Results for orders placed or performed during the hospital encounter of 11/14/17 (from the past 24 hour(s)) Protime-INR Collection Time: 11/25/17 6:04 AM Result Value Ref Range INR 1.8 ASSESSMENT & PLAN Patient Active Hospital Problem List: Compression fracture of lumbar vertebra (HCC) (11/09/2012) Assessment: improving Plan: cont with pain management Lumbar degenerative disc disease (11/09/2012) Assessment: stable Plan: pain management T12 compression fracture (HCC) (09/19/2017) Assessment: stable Plan: pain management Chronic atrial fibrillation ([facility]) (09/19/2017) Assessment: stable Plan: cont with Digoxin COPD, 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 2) Mobility ADL/dysfunction - continue OT for ADL's, IADL's, functional transfers, equipmen t evaluation, family training. 3) Mobility dysfunction - continue 24 hr. Rehab nursing for bowel, bladder skin pain sleep. Wing Demetra Jain MD 11/25/20177:15 AM onversion Transaction, Provider Unknown - 11/24/2017 3:35 PM PDTFormatting of this note might be different from t robert original. Therapy Progress Note by Carisa Garner PT at 11/24/17 7829 Author: Carisa Garner PT Service: (none) Author Type: Physical Therapist Filed: 11/24/17 6878 Date of Service: 11/24/171534 Status: Signed Hooking Machine Operator: Carisa Garner PT (Physical Therapist) PHYSICAL THERAPY TREATMENT NOTE PT Received On: 11/24/17 Reason for Treatment: Other (comment) (s/p fall with compression fx, SOB with CHF ) Requires PT Follow Up: Yes Follow up PT Only?: No Assistance Required: 1 person Workforce Planning Analyst Needed: No Recommendations: IRF Plan Treatment/Interventions: Continue per Primary PT POC Progress: Progressing toward goals Summary Extended time required discussing scheduling requests per patient as he indicates that he h as significant pain in AM. Patient requesting to start therapies around 10 that involve mob ilizing. Comments: Upon PT arrival, pt. supine in bed. Patient agreeable to PT. Session f ocusing on Tinetti Balance Assessment as pt. lives alone. Patient scored 18/28 w/FWW indica ting high fall risk. PT reviewing importance of having someone w/him for all upright mob du e to fall risk. PT educating pt. on importance of mwc and FWW for discharge. Patient indic ates that he plans on dc'ing to his son's home in [place] to assist w/safe indep mob and d c plan. PT f/u w/OT regarding concern w/pt.'s insight/cog as pt. appeared somewhat surprise d w/high fall risk score, though after further discussing, PT discovering that pt. has had n umerous falls over this past year. Pt. seated in mwc in room @ end of PT. Call light withi n reach to verb needs. Precautions Spinal Precautions: TLSO on when upright, Lumbar Other Precautions: Fall risk, SP02>/=88%, pre medicate for pain Cognition Overall Cognitive Status: Within Functional Limits Orientation Level: Oriented Oriented: x 4 Comments: 3.5L O2 w/mob FUNCTIONAL MOBILITY Bed Mobility Rolling: Modified independent Sidelying to Sit: Modified independent - Transfers Sit to/from Stand: Standby assist, Verbal instruction Ambulation Weight Bearing Status: WBAT RLE, WBAT LLE Maximal Ambulation Distance (feet): 40ft Total Ambulation Distance (feet): 40ft Ambulation Assistance: Standby assist Distance limited by?: Therapist/staff discretion Pattern: Alternating, Decreased garland, Left swing foot doesn't pass stance foot, Forward flexed (crouched gait) Assistive Device: Walker front wheeled Standardized Test Tinetti Performance Oriented Mobility Assessment : w/FWW high fall risk, pt. Educate d that he needs to have someone w/him w/mob, pt. Verb understanding Activity Tolerance: Patient limited by fatigue The patient demonstrated no indication of pain during therapy session. Education Completed : Education Topics: [x] Rationale for PT [] PT POC [x] DC planning [x] Precautions [x] Exercises [x] Bed mobility [x] Transfer training with hand placement [x] Gait training [] Stair training [] Use of gait belt [] Other Completed with: [x] Patient [] Spouse [] Significant other [] Family [] C aregiver [] Other Completed by: [x] Verbal education [x] Demonstration [] Handout [] Other: Response to Education: [x] Stated Understanding [] Reinforcement necessary [x] Returned demonstration [x] Demonstrated understanding [] No evidence of learning [] Refused onver kelin Transaction, Provider Unknown - 11/24/2017 2:18 PM PDT Progress Notes by Gail Dave RD at 11/24/17 1418 Author: Gail Dave RD Service: (none) Author Type: Registered Dietitian Filed: 11/24/17 1427 Date of Service: 11/24/171417 Status: Addendum Hooking Machine Operator: Gail Dave RD (Registered Dietitian) Related Notes: Original Note by Gail Dave RD (Registered Dietitian) filed at 11/24 1418 11/24/17 1343 Subjective Timepoint Admit (LOS day 10) Pt c/o In to see pt admitted for chronic atrial fibrillation. Pt with Hx of CHF, currently on lasix. Reported by Patient Diet Experience Self-selected diet(s) followed Pt states he eats 3 meals daily at home. Breakfast: 2 poache d eggs and 1 slice of toast. Lunch: bowl of soup and crackers. Dinner; beef celina with ruby se and canned veggies. Fluid / Beverage Intake Oral Fluids Amount Ad emily Liquid Meal Replacement or Supplement Will send Chocolate Boost Pudding with Lunch and dinn er trays. Food Intake Amount of Food Breakfast: pt reports he couldn't eat much of it d/t therapies. Type of Food / Meals Cardiac diet Meal / Snack Pattern Per flowsheets, pt eating 50-100% of meals over the last 6 days, altho ugh meals are variable. Pt reports disliking the foods here although understands why he has to be on a cardiac diet. Micronutrient Intake Vitamin Intake Multivitamin Anthropometrics Weight change Wt down 5.5 kg since admit. Per I/O's pt is fluid negative 5.3 L and likely r /t fluids. Noted to be on lasix. Biochemical data, medical tests, and procedures reviewed Biochemical data, medical tests, and procedures reviewed labs reviewed. Recommendations Recommended energy needs Continue cardiac diet as ordered. Discontinued house meals per pt preference. Pt to order consistent meals daily. Sending Boost pudding BID with lunch and din ner trays. Encourage to maintian po intake of at least 75% of meals. Will continue to monito r per nutrition protocol. Nutritional Risk Nutritional risk Low Follow up date 12/01/[address] F/u date: 12/04/17 Wing Micah Lopes MD - 11/24/2017 10:33 AM PDTFormatting of this note might be different from the orig inal. Progress Notes by Wing Micah Jain MD at 11/24/17 1033 Author: Wing Micah Jain MD Service: (none) Author Type: Physician Filed: 11/24/17 1033 Date of Service: 11/24/17 1033 Status: Signed Hooking Machine Operator: Wing Micah Jain MD (Physician) [facility] Service: Physical Medicine & Rehab Progress Note Hospital Day: LOS: 10 days SUBJECTIVE Patient Summary: The patient is agreeable to working with [facility]. Will have repeat INR tomorrow. Targeted new learning with completing multi-step navigation on electronic calendar to impr ove new reclal with daily events/appointments. Pt formulated step by step instructions with ST, to provide written supplement. Pt limited by visual deficits and hand tremors, print and buttons on phone made larger. ST to continue to review/practice implementation. ROS: No current complaints of neurological problems such as new weakness, numbness, tinglin g, visual changes. No complaints of CVS, pulmonary, GI, , integument, probs. No complaints of SOB,CP,NAUSEA, swallowing problems or pain problems. No complaints of sleeping difficult y. No complaints of anxiety or depression. Scheduled Medications aspirin 81 mg Oral Daily atorvastatin 20 mg Oral Nightly calcitonin (salmon) 1 spray Alternating Nares Daily co-enzyme Q-10 200 mg Oral Daily digoxin 0.125 mg Oral Daily diltiazem 240 mg Oral Daily doxazosin 2 mg Oral Nightly furosemide 40 mg Oral Daily Lidocaine 1 patch Transdermal Daily methocarbamol 750 mg Oral 4x Daily methylnaltrexone 12 mg Subcutaneous Daily multivitamin with minerals 1 tablet Oral Daily oxybutynin 10 mg Oral TID oxyCODONE 5 mg Oral 4x Daily senna 2 tablet Oral Nightly spironolactone 12.5 mg Oral Daily umeclidinium-vilanterol 1 puff Inhalation Daily warfarin 2.5 mg Oral Daily PRN Medications acetaminophen OR acetaminophen, ipratropium-albuterol, magnesium hydroxide, ondansetron OR ondansetron, oxyCODONE-acetaminophen, oxyCODONE-acetaminophen, polyethylene glycol, zolpidem OBJECTIVE Vital Signs: BP 146/83 | Pulse 91 | Temp 97.6 F (36.4 C) (Oral) | Resp 18 | Ht 1.753 m (5' 9") | Wt 67.6 kg (149 lb) | SpO2 92% | BMI 22.00 kg/m General Appearance: Alert, cooperative, no distress. Head: symmetrical Eyes: reactive Lungs: clear Chest wall: nontender Heart: regular Abdomen: soft Extremities: Negative edema Pulses: regular Skin: intact DATA No results found for this or any previous visit (from the past 24 hour(s)). ASSESSMENT & PLAN Patient Active Hospital Problem List: Compression fracture of lumbar vertebra (HCC) (11/09/2012) Assessment: improving Plan: cont with pain management Lumbar degenerative disc disease (11/09/2012) Assessment: stable Plan: pain management T12 compression fracture (HCC) (09/19/2017) Assessment: stable Plan: pain management Chronic atrial fibrillation (HCC) (09/19/2017) Assessment: stable Plan: cont with Digoxin COPD, 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 2) Mobility ADL/dysfunction - continue OT for ADL's, IADL's, functional transfers, equipmen t evaluation, family training. 3) Mobility dysfunction - continue 24 hr. Rehab nursing for bowel, bladder skin pain sleep. Wing Demetra Jain MD 11/24/201710:33 AM Babs Pride COTA - 11/24/2017 10:30 AM PDT Therapy Progress Note by EMMA More at 11/24/17 1030 Author: EMMA More Service: (none) Author Type: Occupational Therapy Shauna alvarado Filed: 11/24/17 7930 Date of Service: 11/24/17 1030 Status: Signed Hooking Machine Operator: EMMA More (Automatic Wheel Line Operator) OCCUPATIONAL THERAPY TREATMENT NOTE OT Received On: 11/24/17 Reason for Treatment: Deconditioning, Other (comment) (t12 compression fx) Requires OT Follow Up: Yes Assistance Required: 1 person Workforce Planning Analyst Needed: No Family/Caregiver Present: No Requires OT Follow Up: Yes Recommendation Comments Plan Requires OT Follow Up: Yes Precautions Spinal Precautions: TLSO on when upright, Lumbar Other Precautions: Fall risk, SP02>/=88%, pre medicate for pain Summary Pt seated up in w/c upon MARCIAL arrival. Pt willing to participate with OT this am. Focus on adl training with tub t/f bench. Adapted techniques for safe home bathing and dressing. A dapted equipment disucssion and options. Pt tolerated session well and was up in w/c with ca ll light within reach, no needs indicated. ADL/IADL UE Bathing UE Bathing Comments: Discussed adapted bathing techniuqes and equipment needs. Pt reporting [id number] is getting all the needed equipment. Tub Transfers Tub Transfer From: Wheelchair Tub Transfer Type: To and From Tub Transfer to: Transfer tub bench Tub Transfer Technique: Stand pivot Tub Transfers: Contact guard Tub Transfers Comments: Dry practice of tub t/f training from w/c level. Extra time requir ed with rest breaks due to fatigue and endurance. Pt was able to complete in a safe manner to and from w/c. Exercise Tools Exercise Tools: Yes Theraputty: Blending of two color putty. Safety Devices in Place: Yes Type of Devices: Call lite in place Pain The patient did not demonstrate any signs of symptoms of pain throughout OT session Education Completed: Education Topics: Adapted equipment use and energy conservation Completed with: [x] Patient [] Spouse [] Significant other [] Family [] C aregiver [] Other Completed by :[x] Verbal education [] Demonstration [] Handout [] Other: Response to Education: [x] Stated Understanding [] Reinforcement necessary [] Returned demonstration [] Demonstrated understanding [] No evidence of learning [] Refused Wilder Burroughs PT - 11/24/2017 9:45 AM PDT Therapy Progress Note by Wilder Enrique PT at 11/24/17 7438 Author: Wilder Enrique PT Service: (none) Author Type: Physical Therapist Filed: 11/24/17 1051 Date of Service: 11/24/17944 Status: Signed Hooking Machine Operator: Wilder Enrique PT (Physical Therapist) PHYSICAL THERAPY TREATMENT NOTE PT Received On: 11/24/17 Reason for Treatment: Other (comment) (Other (comment) (s/p fall with compression fx, SOB w ith CHF ) Requires PT Follow Up: Yes Follow up PT Only?: No Assistance Required: 1 person Recommendations: IRF Plan Treatment/Interventions: Continue per Primary PT POC Progress: Progressing toward goals Summary Comments: Upon PT arrival pt sitting in [facility]. pt agreeable to therapy. Pt had spilled his cu p of water everywhere. PT grabbed towels to mop up the water and patient used his feet to mo ve the towel around as well. Pt reported that his pain was an 8.5/10. RN notified and admini stered his pn meds while PT assessed vitals. Pts vitals WNL, unable to chart d/t computer in room not functioning. Pt able to propel himself down to the [facility] gym. Pt requiring verbal cu es for directions. Pt in gym vitals assessed again O2 below 88% but quickly recovered with d eep breathing. Pt able to transfer from [facility] and ambulate in [facility] gym. Vitals assessed again a nd found WNL. Pt requiring a therapeutic rest break after ambulation. Pt propelled over to / / bars where pt practiced walkign forward and backward with varying UE support. Pt propelled himself back up to his room sitting in [facility] with call light within reach. Precautions Spinal Precautions: TLSO on when upright, Lumbar Other Precautions: Fall risk, SP02>/=88%, pre medicate for pain FUNCTIONAL MOBILITY Transfers Sit to/from Stand: Standby assist, Verbal instruction Ambulation Weight Bearing Status: WBAT RLE, WBAT LLE Maximal Ambulation Distance (feet): 100, 6x 10ft Total Ambulation Distance (feet): 160 Ambulation Assistance: Standby assist, Minimal assist (Louie with turning) Distance limited by?: Patient's ability Pattern: Alternating, Decreased garland, Right swing foot doesn't pass stance foot, Left sw ing foot doesn't pass stance foot Assistive Device: Walker front wheeled Wheelchair Mobility Maximal Wheelchair Distance (feet): 220 x2 Total Wheelchair Distance (feet): 440 Wheelchair: Standby assist, Verbal instruction Distance limited by?: Therapist/staff discretion Wheelchair Propulsion: BLE Wheelchair Type: Standard Wheelchair Surface: Carpet, Linoleum Wheelchair Management: Brake Right, Brake Left Activity Tolerance: Patient limited by fatigue, Patient limited by pain Nurse Made Aware: yes The patient reported pain rated at a 8.5/10. RN was notified (yes). Other measures provided to relieve pts pain included: repositioning Education Completed: Education Topics: [x] Rationale for PT [] PT POC [] DC planning [x] Precautions [] Exercises [x] Bed mobility [x] Transfer training with hand placement [x] Gait training [] Stair training [x] Use of gait belt [] Other Completed with: [x] Patient [] Spouse [] Significant other [] Family [] C aregiver [] Other Completed by: [x] Verbal education [x] Demonstration [] Handout [] Other: Response to Education: [x] Stated Understanding [x] Reinforcement necessary [x] Returned demonstration [x] Demonstrated understanding [] No evidence of learning [] Refused onversion Trans action, Provider Unknown - 11/24/2017 9:30 AM PDT Therapy Progress Note by EMMA Jauregui at 11/24/17929 Author: EMMA Jauregui Service: (none) Author Type: Service Delivery Analyst ant Filed: 11/24/17 1141 Date of Service: 11/24/17929 Status: Signed Hooking Machine Operator: EMMA Jauregui (Automatic Wheel Line Operator) OCCUPATIONAL THERAPY TREATMENT NOTE OT Received On: 11/24/17 Reason for Treatment: Deconditioning, Other (comment) (t12 compression fx) Requires OT Follow Up: Yes Assistance Required: 1 person Workforce Planning Analyst Needed: No Family/Caregiver Present: No Recommendation: (Cont IPR) Equipment Recommended: Faculty Neuropsychologist, Sock aid, Other (comment) (pt currently has all items in ro om) Requires OT Follow Up: Yes Recommendation Comments Pt would benefit from education on AE, using powerhouse mechanic helper and sock aide for dressing. Pt current ly has personal AE in room. Plan Treatment Interventions: Other (comment) (per OT POC) Progress: Progressing toward goals Requires OT Follow Up: Yes Focus for next session: use of AE during ADL's; standing balance; walker safety Follow up OT only? [] Yes [x] No Precautions Spinal Precautions: TLSO on when upright, Lumbar Other Precautions: Fall risk, SP02>/=88%, pre medicate for pain Summary Pt seated in W/C upon ELISEO arrival. Pt agreed to participate in OT at this time. The focus o f todays session included hygiene/grooming tasks, UB/LB dressing with use of FWW, and AE edu cation. Pt tolerated session well, but required extra time due to pain and increased fatigue . Additional Activities Additional Activities Comments: Pt would benefit from education on AE, using powerhouse mechanic helper and so ck aide for dressing. Pt currently has personal AE in room. Safety Devices in Place: Yes Type of Devices: Chair alarm, Call lite in place, Wheelchair FIM Grooming Which grooming tasks completed during this session?: Oral care, [place] hair, Wash/rinse/dry face Patient completed % of overall grooming tasks: 100 Percent Grooming Final Score: Supervision/Set-up Upper Body Dressing Clothing Items Worn This Session: addictions recovery specialist shirt Upper Body Dressing Final Score: Supervision/Set-up Lower Body Dressing Clothing Items Worn This Session: Underwear, Pants % Dressing Tasks Completed : 83.33 % Lower Body Dressing Final Score: Minimal Assistance Barriers to d/c at this time include: [] Home environment [] Family support [] Equipment needs [] Cognitive deficits impacting functional independence [x] Physical deficits impacting functional independence [x] Self-care deficits impacting functional independence [] Other Pain The patient reported pain rated at a 8.5/10. RN was notified. Education Completed: Education Topics: Hygiene/grooming tasks, UB/LB dressing, STS with use of FWW and safety awareness Completed with: [x] Patient [] Spouse [] Significant other [] Family [] C aregiver [] Other Completed by :[x] Verbal education [x] Demonstration [] Handout [] Other: Response to Education: [] Stated Understanding [x] Reinforcement necessary [] Returned demonstration [] Demonstrated understanding [] No evidence of learning [] Refused Reviewed plan of care and goals set by OTR/L. onver kelin Transaction, Provider Unknown - 11/24/2017 8:00 AM PDT Therapy Progress Note by SARAH NewellS at 11/24/17799 Author: JUAN CARLOS Newell Service: (none) Author Type: Speech Therapist Filed: 11/24/17929 Date of Service: 11/24/17799 Status: Attested Addendum Hooking Machine Operator: SARAH NewellS (Speech Therapist) Related Notes: Original Note by Savita Breazeale, [facility] (Speech Therapist) filed at 11/05 07/24 0909 Cosigner: Meche Batista, CCC-HOSPITAL COOK at 11/24/17 09 Attestation signed by Mecheqasim Batista CCC-HOSPITAL COOK at 11/24/17 09 Student therapist educationally participated in therapy session under the supervision of brent vazquez licensed therapist. This note was created by the student therapist and co-signed by the censed therapist. Information in this note may have been obtained from flowsheet charting. T his note is co-signed at the treatment plan/progress note level. The patient approved of brent vazquez student's role in care. SPEECH - LANGUAGE - COGNITION Addendum made to add treatment plan and frequency [facility] Received On: 11/24/17 Requires HOSPITAL C[facility] Follow Up: Yes Treatment Plan: Continue with current plan Treatment Frequency: 4-6 x/week Session type: Treatment Additional Pertinent History: Pt in a lot of pain and stated that he usually wakes up early , but doesn't do many activities as his pain level his higher in the morning. He needed his glasses for functional cell phone task, but couldn't recall where he left them. Pt needed pr ompting to remember that he would need his glasses for cellphone activity. Therapy minutes w ere short due to pt needing to use the restroom. Family/Caregiver Present: No Expression Primary Mode of Expression: Verbal Cognition Problem Solving Comments: Pt couldn't remember where his glasses were. Relied on ST to find them. Pt suggested they might be on the floor since they were not in his bed. Memory Comments: Able to recall step one of adding important dates to his calendar, but the n stated that his pain level was high causing him to struggle concentrating. 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 Education Completed Education Topics: [x] Cognition: Educate on speech-language pathology role, sessions activities, results, sa fety precautions, plan of care, and homework activities [] Speech: Educate on speech-language pathology role, sessions activities, results, plan of care, and homework activities. [] Language: Educate on speech-language pathology role, sessions activities, results, pl an of care, and homework activities. Completed with: [x] Patient [] Spouse [] Significant other [] Family [] C aregiver [] Other Completed by: [x] Verbal education [] Demonstration [] Handout [] Other: Response to Education: [x] Stated Understanding [] Reinforcement necessary [] Return ed demonstration [] Demonstrated understanding [] No evidence of learning [] Refused Savita Sandoval, [facility]PITAL COOK-[facility] 11/24/2017 onver kelin Transaction, Provider Unknown - 11/23/2017 5:05 PM PDT Nurse Progress Note by Naina Angeles RN at 11/23/171704 Author: Naina Angeles RN Service: (none) Author Type: Registered Nurse Filed: 11/23/17 614 Date of Service: 11/23/171704 Status: Signed Hooking Machine Operator: Naina Angeles RN (Registered Nurse) No significant events this day. Up for therapies and resting with pressure relief in betwe en. Hourly rounding completed to decrease risk for falls. Call light within reach at all ti mes when in bed/chair. Bed/chair alarm on and activated while in bed/chair. Patient eating meals without difficulty. Occupational, and physical therapy plan of care incorporated i n nursing plan of care to facilitate maximum rehabilitation. Medical management continues t o focus on DVT prevention, fall prevention, pressure ulcer prevention, medication management , bowel management, bladder management, pain management, nutrition and hydration. Continue to monitor. No complaints at this time. Wing Micah Lopes MD - 11/23/2017 1:03 PM PDTFormatting of this note might be different from the orig inal. Progress Notes by Wing Micah Jain MD at 11/23/17 1309 Author: Wing Micah Jain MD Service: (none) Author Type: Physician Filed: 11/23/17 1305 Date of Service: 11/23/17 130 Status: Signed Hooking Machine Operator: Wing Micah Jain MD (Physician) [facility] Service: Physical Medicine & Rehab Progress Note Hospital Day: LOS: 9 days SUBJECTIVE Patient Summary: The patient is with constipation. Start Relistor. Pt requesting to shave. Therapist to assist with setup. pt to partake in 5 STS, rest break after each STS d/t fatigue. ROS: No current complaints of neurological problems such as new weakness, numbness, tinglin g, visual changes. No complaints of CVS, pulmonary, GI, , integument, probs. No complaints of SOB,CP,NAUSEA, swallowing problems or pain problems. No complaints of sleeping difficult y. No complaints of anxiety or depression. Scheduled Medications aspirin 81 mg Oral Daily atorvastatin 20 mg Oral Nightly calcitonin (salmon) 1 spray Alternating Nares Daily co-enzyme Q-10 200 mg Oral Daily digoxin 0.125 mg Oral Daily diltiazem 240 mg Oral Daily doxazosin 2 mg Oral Nightly furosemide 40 mg Oral Daily Lidocaine 1 patch Transdermal Daily methocarbamol 1,500 mg Oral 4x Daily methylnaltrexone 12 mg Subcutaneous Daily multivitamin with minerals 1 tablet Oral Daily oxybutynin 10 mg Oral TID oxyCODONE 10 mg Oral 4x Daily senna 2 tablet Oral Nightly spironolactone 12.5 mg Oral Daily umeclidinium-vilanterol 1 puff Inhalation Daily warfarin 2.5 mg Oral Daily PRN Medications acetaminophen OR acetaminophen, ipratropium-albuterol, magnesium hydroxide, ondansetron OR ondansetron, oxyCODONE-acetaminophen, oxyCODONE-acetaminophen, polyethylene glycol, zolpidem OBJECTIVE Vital Signs: BP 137/80 (BP Location: Right upper arm) | Pulse 56 | Temp 96.8 F (36 C) (Oral) | Re sp 20 | Ht 1.753 m (5' 9") | Wt 70.9 kg (156 lb 4.8 oz) | SpO2 94% | BMI 23.08 kg/m General Appearance: Alert, cooperative, no distress. Head: symmetrical Eyes: reactive Lungs: clear Chest wall: nontender Heart: regular Abdomen: soft Extremities: Negative edema Pulses: regular Skin: intact DATA Results for orders placed or performed during the hospital encounter of 11/14/17 (from the past 24 hour(s)) Digoxin level Collection Time: 11/23/17 5:54 AM Result Value Ref Range DATE OF LAST DOSE UNKNOWN TIME OF LAST DOSE UNKNOWN DIGOXIN LEVEL 1.3 0.90 - 2.00 ng/mL ASSESSMENT & PLAN Patient Active Hospital Problem List: Compression fracture of lumbar vertebra (HCC) (11/09/2012) Assessment: improving Plan: cont with pain management Lumbar degenerative disc disease (11/09/2012) Assessment: stable Plan: pain management T12 compression fracture (HCC) (09/19/2017) Assessment: stable Plan: pain management Chronic atrial fibrillation ([facility]) (09/19/2017) Assessment: stable Plan: cont with Digoxin COPD, 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 2) Mobility ADL/dysfunction - continue OT for ADL's, IADL's, functional transfers, equipmen t evaluation, family training. 3) Mobility dysfunction - continue 24 hr. Rehab nursing for bowel, bladder skin pain sleep. Wing Demetra Jain MD 11/23/20171:03 PM onversion Transaction, Provider Unknown - 11/22/2017 5:57 PM PDTFormatting of this note might be different from t robert original. Nurse Progress Note by Naina Angeles RN at 11/22/171756 Author: Naina Angeles RN Service: (none) Author Type: Registered Nurse Filed: 11/22/171957 Date of Service: 11/22/171756 Status: Signed Hooking Machine Operator: Naina Angeles RN (Registered Nurse) No significant events this day. Up for therapies and resting with pressure relief in betwe en. Hourly rounding completed to decrease risk for falls. Call light within reach at all ti mes when in bed/chair. Bed/chair alarm on and activated while in bed/chair. Patient eating meals without difficulty. Occupational, and physical therapy plan of care incorporated in nursing plan of care to facilitate maximum rehabilitation. Medical management continues to focus on DVT prevention, fall prevention, pressure ulcer prevention, medication managemen t, bowel management, bladder management, pain management, nutrition and hydration. Continue to monitor. No complaints at this time. Marianne, Wing Micah MD - 11/22/2017 3:35 PM PDTFormatting of this note might be different from the orig inal. Progress Notes by Wing Micah Jain MD at 11/22/17 1805 Author: Wing Micah Jain MD Service: (none) Author Type: Physician Filed: 11/22/17 4326 Date of Service: 11/22/171534 Status: Signed Hooking Machine Operator: Wing Micah Jain MD (Physician) [facility] Service: Physical Medicine & Rehab Progress Note Hospital Day: LOS: 8 days SUBJECTIVE Patient Summary: The patient INR at 2.5, will continue with Coumadin 3 mg daily. ongoing limitations for functional activities becoming SOB while SpO2 and HR in therapeutic range with brief ambulation. Pt additionally with reduced postural control, slight R latera l trunk lean requiring therapist support for upright at AD for ambulation. ROS: No current complaints of neurological problems such as new weakness, numbness, tinglin g, visual changes. No complaints of CVS, pulmonary, GI, , integument, probs. No complaints of SOB,CP,NAUSEA, swallowing problems or pain problems. No complaints of sleeping difficult y. No complaints of anxiety or depression. Scheduled Medications aspirin 81 mg Oral Daily atorvastatin 20 mg Oral Nightly calcitonin (salmon) 1 spray Alternating Nares Daily co-enzyme Q-10 200 mg Oral Daily digoxin 0.125 mg Oral Daily diltiazem 240 mg Oral Daily doxazosin 2 mg Oral Nightly furosemide 40 mg Oral Daily Lidocaine 1 patch Transdermal Daily methocarbamol 1,500 mg Oral 4x Daily methocarbamol 1,500 mg Oral 4x Daily multivitamin with minerals 1 tablet Oral Daily oxybutynin 10 mg Oral TID oxyCODONE 10 mg Oral 4x Daily senna 2 tablet Oral Nightly spironolactone 12.5 mg Oral Daily umeclidinium-vilanterol 1 puff Inhalation Daily warfarin 2.5 mg Oral Daily PRN Medications acetaminophen OR acetaminophen, ipratropium-albuterol, magnesium hydroxide, ondansetron OR ondansetron, oxyCODONE-acetaminophen, oxyCODONE-acetaminophen, polyethylene glycol, zolpidem OBJECTIVE Vital Signs: BP 120/78 (BP Location: Right upper arm) | Pulse 68 | Temp 97.8 F (36.6 C) (Oral) | Resp 20 | Ht 1.753 m (5' 9") | Wt 67.3 kg (148 lb 6.4 oz) | SpO2 95% | BMI 21.91 kg/m General Appearance: Alert, cooperative, no distress. Head: symmetrical Eyes: reactive Lungs: clear Chest wall: nontender Heart: regular Abdomen: soft Extremities: Negative edema Pulses: regular Skin: intact DATA Results for orders placed or performed during the hospital encounter of 11/14/17 (from the past 24 hour(s)) Protime-INR Collection Time: 11/22/17 6:04 AM Result Value Ref Range INR 2.5 ASSESSMENT & PLAN Patient Active Hospital Problem List: Compression fracture of lumbar vertebra (HCC) (11/09/2012) Assessment: improving Plan: cont with pain management Lumbar degenerative disc disease (11/09/2012) Assessment: stable Plan: pain management T12 compression fracture (HCC) (09/19/2017) Assessment: stable Plan: pain management Chronic atrial fibrillation (HCC) (09/19/2017) Assessment: stable Plan: cont with Digoxin COPD, 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 2) Mobility ADL/dysfunction - continue OT for ADL's, IADL's, functional transfers, equipmen t evaluation, family training. 3) Mobility dysfunction - continue 24 hr. Rehab nursing for bowel, bladder skin pain sleep. Wing Demetra Jain MD 11/22/20173:35 PM onversion Transaction, Provider Unknown - 11/22/2017 10:30 AM PDTFormatting of this note might be different from t robert original. Therapy Progress Note by EMMA Mead at 11/22/17 1030 Author: EMMA Mead Service: (none) Author Type: Occupational Therapy Meir davis Filed: 11/22/17 1106 Date of Service: 11/22/17 1030 Status: Signed Hooking Machine Operator: EMMA Mead (Automatic Wheel Line Operator) OCCUPATIONAL THERAPY TREATMENT NOTE OT Received On: 11/22/17 Reason for Treatment: Other (comment) (t12 compression fx) Requires OT Follow Up: Yes Assistance Required: 1 person Workforce Planning Analyst Needed: No Family/Caregiver Present: No Recommendation: (continue IRF) Equipment Recommended: Faculty Neuropsychologist, Sock aid, Sponge long handled, Shoe horn long handled, AD w alker Requires OT Follow Up: Yes Recommendation Comments Plan Treatment Interventions: (per OT POC) Progress: Progressing toward goals Requires OT Follow Up: Yes Focus for next session: Activity tolerance, standing activities Follow up OT only? [] Yes [x] No Precautions Spinal Precautions: TLSO on when upright, Lumbar Other Precautions: Fall precautions, SpO2>/=88%, pre-medicate for pain Summary pt seated in w/c upon ELISEO arrival. Agreeable to participate in OT at this time. Pt requesti ng to shave. Therapist to assist with setup. pt to partake in 5 STS, rest break after each S TS d/t fatigue. At end of sesison pt reamined seated in w/c in room no needs indicated at th is time. 3L of 02 throughout entire session. ADL/IADL Grooming Grooming Comments: cueing for various areas missed, able to manage electric shaver appropri ately. additional time to complete d/t fatigue Safety Devices in Place: Yes Type of Devices: Wheelchair, RN notified FIM Grooming Which grooming tasks completed during this session?: Wash/rinse/dry hands, Wash/rinse/dry f jeannette, Shave face Patient completed % of overall grooming tasks: 100 Percent Grooming Final Score: Supervision/Set-up Transfer Bed/Chair Wheelchair Transfers: Bed, Chair, Wheelchair Final Score: Minimal Assistance Comprehension Comprehension Final Score: 6 - Modified independence Expression Expression Final Score : Modified independence Social Interaction Social Interaction Final Score: Complete Bryant Problem Solving Problem Solving Final Score: Supervision/Set-up Memory Memory Final Score: Modified Bryant Barriers to d/c at this time include: [] Home environment [] Family support [] Equipment needs [] Cognitive deficits impacting functional independence [] Physical deficits impacting functional independence [] Self-care deficits impacting functional independence [] Other Pain The patient did not demonstrate any signs of symptoms of pain throughout OT session Education Completed: Education Topics: ADL, STS Completed with: [x] Patient [] Spouse [] Significant other [] Family [] C aregiver [] Other Completed by :[x] Verbal education [] Demonstration [] Handout [] Other: Response to Education: [x] Stated Understanding [] Reinforcement necessary [x] Returned demonstration [] Demonstrated understanding [] No evidence of learning [] Refused Reviewed plan of care and goals set by OTR/L. onver kelin Transaction, Provider Unknown - 11/22/2017 8:15 AM PDT Progress Notes by Dulce Branch CCC-HOSPITAL COOK at 11/22/17814 Author: CHAYITO GrubbsHOSPITAL COOK Service: (none) Author Type: Speech and Legal Collector ologist Filed: 11/22/17 0956 Date of Service: 11/22/17814 Status: Signed Hooking Machine Operator: Dulce Branch CCC-HOSPITAL COOK (Speech and Language Pathologist) SPEECH - LANGUAGE - COGNITION HOSPITAL COOK Received On: 11/22/17 Requires HOSPITAL COOK Follow Up: Yes Treatment Plan: Continue with current plan Treatment Frequency: 4-6 x/week Session type: Treatment Family/Caregiver Present: No Expression Primary Mode of Expression: Verbal Cognition Problem Solving Comments: Targeted generating hypothetical daily/monthly/annual events to i nput into electronic calendar. Pt generated 2 ideas (e.g. doctors appointments, birthdays) i ndependently. Pt required max assist to problem solve how to locate/find dates of birthdays or appointments he could not remember. When provided solution (e.g. call son, call doctor's office) pt stated understanding and able to repeat back. New Learning Memory : Maximal cues Memory Comments: Targeted new learning with completing multi-step navigation on electronic calendar to improve new reclal with daily events/appointments. Pt formulated step by step in structions with ST, to provide written supplement. Pt limited by visual deficits and hand tr emors, print and buttons on phone made larger. ST to continue to review/practice implementat ion. 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 Education Completed Education Topics: [x] Cognition: Educate on speech-language pathology role, sessions activities, results, sa fety precautions, plan of care, and homework activities [] Speech: Educate on speech-language pathology role, sessions activities, results, plan of care, and homework activities. [] Language: Educate on speech-language pathology role, sessions activities, results, pl an of care, and homework activities. Completed with: [x] Patient [] Spouse [] Significant other [] Family [] C aregiver [] Other Completed by: [x] Verbal education [] Demonstration [] Handout [] Other: Response to Education: [x] Stated Understanding [] Reinforcement necessary [] Return ed demonstration [] Demonstrated understanding [] No evidence of learning [] Refused Dulce Branch CCC-HOSPITAL COOK onver kelin Transaction, Provider Unknown - 11/22/2017 8:00 AM PDT Therapy Progress Note by Dulce Sanders PT at 11/22/17 0800 Author: Dulce Sanders PT Service: (none) Author Type: Physical Therapist Filed: 11/22/17 1203 Date of Service: 11/22/17 08 Status: Signed Hooking Machine Operator: Dulce Sanders PT (Physical Therapist) PHYSICAL THERAPY TREATMENT NOTE PT Received On: 11/22/17 Reason for Treatment: Other (comment) (Other (comment) (s/p fall with compression fx, SOB w ith CHF ) Requires PT Follow Up: Yes Follow up PT Only?: No Assistance Required: 1 person Workforce Planning Analyst Needed: No Recommendations: IRF Plan Treatment/Interventions: Continue per Primary PT POC Progress: Progressing toward goals, Slow progress, decreased activity tolerance PT Frequency: 5-7x/wk, Once per day, Twice a day Summary Comments: Pt received reclined in bed donning 3LPM nc agreeable to PT session. Treatment em phasis for progression of all mobility techniques while maintaining spinal precautions. Pt o bserved with ongoing limitations for functional activities becoming SOB while SpO2 and HR in therapeutic range with brief ambulation. Pt additionally with reduced postural control, sli ght R lateral trunk lean requiring therapist support for upright at AD for ambulation. Pt re turned end of brief session to upright in wheelchair on 3LPM nc in room and transition to SL P treatment. Precautions Spinal Precautions: Lumbar, TLSO on when upright Other Precautions: Fall precautions, SpO2>/=88%, pre-medicate for pain Cognition Overall Cognitive Status: Within Functional Limits Orientation Level: Oriented Oriented: x 4 Comments: intermittent cueing for safety all mobility tasks FUNCTIONAL MOBILITY Bed Mobility Rolling: Supervison (cueing for log roll) Supine to Sit: Min assist (1 LE OOB) Scooting : Modified independent Transfers Sit to/from Stand: Minimal assist (steadying/contact guard), Standby assist (cueing for UE placement) Ambulation Weight Bearing Status: WBAT RLE, WBAT LLE Maximal Ambulation Distance (feet): 45ft, 25ft Total Ambulation Distance (feet): 70ft Ambulation Assistance: Minimal assist Distance limited by?: Patient's ability Pattern: Alternating, Decreased garland, Right swing foot doesn't pass stance foot, Left sw ing foot doesn't pass stance foot (crouched gait, slight R lateral trunk lean) Assistive Device: Walker front wheeled Safety Devices in Place: Yes Restraints Initially in Place: No The patient reported pain rated at a 5/10 with RN aware and pt currently on pain medication schedule. Other measures provided to relieve pts pain included: repositioning Education Completed: Education Topics: [x] Rationale for PT [] PT POC [] DC planning [x] Precautions [] Exercises [x] Bed mobility [x] Transfer training with hand placement [x] Gait training [] Stair training [] Use of gait belt [] Other Completed with: [x] Patient [] Spouse [] Significant other [] Family [] C aregiver [] Other Completed by: [x] Verbal education [x] Demonstration [] Handout [] Other: Response to Education: [x] Stated Understanding [x] Reinforcement necessary [x] Returned demonstration [x] Demonstrated understanding [] No evidence of learning [] Refused onver kelin Transaction, Provider Unknown - 11/21/2017 3:15 PM PDT Therapy Progress Note by EVANGELIST Braun at 11/21/171514 Author: EVANGELIST Braun Service: (none) Author Type: Physical Therapist Filed: 11/21/171614 Date of Service: 11/21/171514 Status: Attested Hooking Machine Operator: EVANGELIST Braun (Physical Therapist) Cosigner: Josy Kwok PT at 1615 Attestation signed by Josy Kwok PT at 11/21/171615 Student therapist educationally participated in therapy session under the supervision of brent vazquez licensed therapist. This note was created by the student therapist and co-signed by the [facility] centered therapist. Information in this note may have been obtained from flowsheet charting. T his note is co-signed at the treatment plan/progress note level. The patient approved of brent vazquez student's role in care. PHYSICAL THERAPY TREATMENT NOTE PT Received On: 11/21/17 Reason for Treatment: Other (comment) (Other (comment) (s/p fall with compression fx, SOB w ith CHF ) Requires PT Follow Up: Yes Follow up PT Only?: No Assistance Required: 1 person Recommendations: IRF Plan Treatment/Interventions: Continue per Primary PT POC Progress: Progressing toward goals Summary Comments: Pt received sitting in w/c with SOT present, agreeable to therapy. Session focuse d on bed exercises and toilet transfer. Pt requested to use the restroom. Rushing to toilet with increased crouched gait, Pt cued to stand upright and slow down for safety. Pt required verbal cues for proper hand placement during toilet transfer. Pt performed bed exercises, r equiring rest breaks to catch breath due to increased SOB. Pt could benefit from continues t herapy to improve endurance to decrease SOB and to increase ambulation/standing tolerance. S ession ended supine in bed, all needs met. Precautions Spinal Precautions: Lumbar, TLSO on when upright Other Precautions: Fall precautions, SpO2>/=88%, pre-medicate for pain Cognition Overall Cognitive Status: Within Functional Limits Orientation Level: Oriented Oriented: x 4 FUNCTIONAL MOBILITY Bed Mobility Rolling: Modified independent Sit to Supine: Min assist (1 LE into bed) Sit to Sidelying: Standby assist - Transfers Sit to/from Stand: Standby assist, Moderate assist (to arise OR lower) Ambulation Weight Bearing Status: WBAT RLE, WBAT LLE Maximal Ambulation Distance (feet): 75ft Total Ambulation Distance (feet): 75ft Ambulation Assistance: Minimal assist Distance limited by?: Patient's ability Pattern: Alternating, Decreased garland, Right swing foot doesn't pass stance foot, Left sw ing foot doesn't pass stance foot (crouched) Assistive Device: Walker front wheeled THERAPEUTIC EXERCISE Supine-Exercise Type: Ankle pumps, ABduction/ADduction, Straight leg raising, Heel slides, Bridging without bolster Supine-Exercise Comments: 10 reps B Safety Devices in Place: (call light) The patient demonstrated no indication of pain during therapy session. Education Completed: Education Topics: [] Rationale for PT [] PT POC [] DC planning [] Precautions [x] Exercises [] Bed mobility [] Transfer training with hand placement [] Gait training [] Stair training [] Use of gait belt [] Other Completed with: [x] Patient [] Spouse [] Significant other [] Family [] C aregiver [] Other Completed by: [x] Verbal education [] Demonstration [x] Handout [] Other: Response to Education: [] Stated Understanding [] Reinforcement necessary [] Returned demonstration [x] Demonstrated understanding [] No evidence of learning [] Refused onver kelin Sun Provider Unknown - 11/21/2017 2:30 PM PDT Therapy Progress Note by GURWINDER Carr at 11/21/17 1430 Author: GURWINDER Carr Service: (none) Author Type: Occupational Therapist Filed: 11/21/17 1546 Date of Service: 11/21/17 1430 Status: Signed Hooking Machine Operator: GURWINDER Carr (Occupational Therapist) OCCUPATIONAL THERAPY TREATMENT NOTE OT Received On: 11/21/17 Reason for Treatment: Other (comment) (T12 compression fx) Requires OT Follow Up: Yes Assistance Required: 1 person Workforce Planning Analyst Needed: No Family/Caregiver Present: No Recommendation: (cont IPR) Equipment Recommended: Faculty Neuropsychologist, Sock aid, Shoe horn long handled, Sponge long handled, Leg liftner Requires OT Follow Up: Yes Plan Treatment Interventions: (Per OT POC) Progress: Progressing toward goals Requires OT Follow Up: Yes Focus for next session: retrieval tasks at w/c level VS FWW, functional dynamic activities in standing Follow up OT only? [] Yes [x] No Precautions Spinal Precautions: Lumbar, TLSO on when upright Other Precautions: Fall precautions, SpO2>/=88%, pre-medicate for pain Summary Pt agreeable to session this PM. This OT and OTS present during OT tx. Pt aware of student' s role in participation/observation and agreeable to session. Pt sitting up in w/c upon OT a rrival with son present in room--discussing equipment needs at home, including a lift chair and bed. Primary focus on kitchen retrieval and ECTs. O2 sats remaining in 90s throughout se ssion on 3L of O2. At end of session, pt left in family room with PT. ADL/IADL Reviewed ECTs (and provided handout): reviewed sitting vs standing, use of AE to assist for ease/safety. Educ pt on delegating tasks to family members to assist. Pt stated understandi ng. Educ pt on taking a rest break even if the task is not completed, for safety. Kitchen Mobility Kitchen-Mobility Level: Wheelchair Kitchen Activity: Retrieve items, Transport items Kitchen Mobility Comments: Initial retrieval task started with using the FWW. When pt start ed reaching into cupboard, pt's knees not in full extension, and pt continued to bend LEs. O TS provided moderate assist to maintain pt upright. Pt assisted back into w/c. Pt aware of f lexed position and risk for falls, however pt wanted to complete the task. Reviewed benefits to use of a w/c. 2nd attempt at retrieval tasks with use of the w/c--modified environment f or items to reach at counter height. Pt was able to p/u items with use of the powerhouse mechanic helper-pt req uiring for technique and placement of w/c for success. Pt may benefit from a w/c for safety, as pt reports he will be at home by himself during the day. At w/c level, pt requiring SBA and cueing for technique. Safety Devices in Place: Yes Type of Devices: Wheelchair, Chair alarm Pain The patient reported pain rated at a 7/10. RN already aware of pt.'s pain level. Education Completed: Education Topics: Retrieval tasks, ECTs Completed with: [x] Patient [] Spouse [] Significant other [] Family [] C aregiver [] Other Completed by :[x] Verbal education [x] Demonstration [] Handout [] Other: Response to Education: [x] Stated Understanding [x] Reinforcement necessary [x] Returned demonstration [x] Demonstrated understanding [] No evidence of learning [] Refused Mariajose Bajwa OTR/L - 11/21/2017 11:30 AM PDTFormatting of this note might be different from th e original. Therapy Progress Note by GURWINDER Mortensen at 11/21/17 1130 Author: GURWINDER Mortensen Service: (none) Author Type: Occupational Therapist Filed: 11/21/17 1250 Date of Service: 11/21/17 1130 Status: Signed Hooking Machine Operator: GURWINDER Mortensen (Occupational Therapist) OCCUPATIONAL THERAPY TREATMENT NOTE OT Received On: 11/21/17 Reason for Treatment: Other (comment) (T12 compression fx) Requires OT Follow Up: Yes Assistance Required: 1 person Workforce Planning Analyst Needed: No Family/Caregiver Present: No Recommendation: (cont IPR) Equipment Recommended: Faculty Neuropsychologist, Sock aid, Shoe horn long handled, Sponge long handled, Leg liftner Requires OT Follow Up: Yes Plan Treatment Interventions: (per OT POC) Progress: Progressing toward goals Requires OT Follow Up: Yes Focus for next session: adl with AE Follow up OT only? [] Yes [x] No Precautions Spinal Precautions: TLSO on when upright, Lumbar Other Precautions: Fall precautions, SpO2>/=88%, pre-medicate for pain Summary Pt supine in bed upon OT arrival, pt agreeable to therapy. Pt participated in floor retriev al with powerhouse mechanic helper. Bed mobility OOB mod I. STS to FWW sba. Pt picked up 10 blocks off floor wi th 1 seated rest break due to SOB and fatigue in LEs. Pt on 3L O2 NC during activity. Pt pro vided with walker bag and used it during activity. Pt required cues for positioning self and walker as well as body mechanics ie bending at knees. Pts O2 sats 97% on 3L and HR 98. Pt l eft sitting in wc with lunch tray set up. No other needs identified. Safety Devices in Place: Yes Type of Devices: Call lite in place, Wheelchair, RN notified Barriers to d/c at this time include: [] Home environment [] Family support [x] Equipment needs [] Cognitive deficits impacting functional independence [x] Physical deficits impacting functional independence [x] Self-care deficits impacting functional independence [] Other Pain The patient reported pain rated at a 7/10. RN was notified Education Completed: Education Topics: Floor retrieval, body mechanics, walker safety with walker bag Completed with: [x] Patient [] Spouse [] Significant other [] Family [] C aregiver [] Other Completed by :[x] Verbal education [x] Demonstration [] Handout [] Other: Response to Education: [x] Stated Understanding [] Reinforcement necessary [] Returned demonstration [] Demonstrated understanding [] No evidence of learning [] Refused onversion Transa ction, Provider Unknown - 11/21/2017 10:00 AM PDT Therapy Progress Note by Yisel Goetz PT at 11/21/17 1000 Author: Yisel Goetz PT Service: (none) Author Type: Physical Therapist Filed: 11/21/17 1633 Date of Service: 11/21/17 1000 Status: Signed Hooking Machine Operator: Yisel Goetz PT (Physical Therapist) PHYSICAL THERAPY TREATMENT NOTE PT Received On: 11/21/17 Reason for Treatment: Other (comment) (s/p fall with compression fx, SOB with CHF exacerbat ion) Requires PT Follow Up: Yes Follow up PT Only?: No Focus for Next Treatment: Formal Balance Assessment Assistance Required: 1 person Recommendations: IRF Plan Treatment/Interventions: Continue per Primary PT POC Progress: Progressing toward goals Summary Comments: Pt in supine upon arrival and required assist for brief change and donning pants. Pt able to sequence donning TLSO but required min A to help thread LUE (after RUE was alrea dy threaded). Pt somewhat retropulsive upon initial standing d/t flexed posture. Car trans nanette was performed; pt reporting increased lumbar pain when sitting in car and states he sybil ot tolerate any seat with lumbar support. Pt has 45 minute car ride home so may need use of pillows to find comfortable position. Stair training performed on stairs with min A and pt a ble to descend backwards with min A. Sats at 92% post stairs on 3 L O2. Overall, pt limited by back pain (despite pre-medication) and fatigue/dyspnea on exertion. Pt left in room sit ting in w/c with HOSE SUSPENDER CUTTER to assist pt back to bed once linens were changed. Precautions Spinal Precautions: TLSO on when upright, Lumbar Other Precautions: Fall precautions, SpO2>/=88%, pre-medicate for pain Cognition Overall Cognitive Status: Within Functional Limits Orientation Level: Oriented FUNCTIONAL MOBILITY Bed Mobility Rolling: Modified independent Sidelying to Sit: Modified independent - Transfers Sit to/from Stand: Minimal assist (steadying/contact guard), Standby assist (d/t retropulsi on) Car Transfer: Minimal assist, Verbal instruction Ambulation Maximal Ambulation Distance (feet): 80 Total Ambulation Distance (feet): 140 Ambulation Assistance: Standby assist Distance limited by?: Patient's ability Pattern: Decreased garland, Right swing foot doesn't pass stance foot, Left swing foot does n't pass stance foot Assistive Device: Walker front wheeled Stairs Number of Stairs: 3 Stairs Assistance: Verbal instruction, Minimal assist (CGA) Number of stairs limited by?: Patient's ability Stair Management Technique: Step-to, Rails bilateral Wheelchair Mobility Maximal Wheelchair Distance (feet): 150 Total Wheelchair Distance (feet): 150 Wheelchair: Supervision Distance limited by?: Patient's ability Wheelchair Propulsion: BLE Wheelchair Type: Standard Wheelchair Surface: Linoleum Wheelchair Management: Brake Right, Brake Left Wheelchair Cushion Type: (waffle cushion) Wheelchair Pressure Relief: Verbal Instruction Activity Tolerance: Patient limited by fatigue, Patient limited by pain Nurse Made Aware: SELAM Cyr Safety Devices in Place: (HOSE SUSPENDER CUTTER to assist pt back to bed once she changes linens) The patient reported pain rated at a 7/10. RN was notified (Marisol). Other measures provided to relieve pts pain included: rest, pre-medication by RN Education Completed: Education Topics: [x] Rationale for PT [x] PT POC [] DC planning [x] Precautions [x] Exercises [x] Bed mobility [] Transfer training with hand placement [] Gait training [x] Stair training [x] Use of gait belt [] Other Completed with: [x] Patient [] Spouse [] Significant other [] Family [] C aregiver [] Other Completed by: [x] Verbal education [] Demonstration [] Handout [] Other: Response to Education: [x] Stated Understanding [] Reinforcement necessary [x] Returned demonstration [] Demonstrated understanding [] No evidence of learning [] Refused tegTereza johnson MS CCC-HOSPITAL COOK - 11/21/2017 8:45 AM PDT Therapy Progress Note by Tereza Montanez MS CCC-HOSPITAL COOK at 11/21/17 2196 Author: Tereza Montanez MS CCC-HOSPITAL COOK Service: (none) Author Type: Speech and Language Pathologist Filed: 11/21/17 1130 Date of Service: 11/21/17 1320 Status: Signed Hooking Machine Operator: Tereza Montanez MS CCC-HOSPITAL COOK (Speech and Language Pathologist) ADULT STANDARDIZED TESTS HOSPITAL COOK Last Visit HOSPITAL COOK Received On: 11/21/17 Requires HOSPITAL COOK Follow Up: Yes Assessment of Language-Related Functional Activities Understanding medicine labels # correct: 8 Understanding medicine labels % correct: 80 SPEECH - LANGUAGE - COGNITION HOSPITAL COOK Received On: 11/21/17 Requires HOSPITAL COOK Follow Up: Yes Session type: Treatment Family/Caregiver Present: No Verbal Expression Comment: Pt demo'd some word finding difficulties when answering ?s and c ommenting throughout the session. Cognition Problem Solving Comments: Pt was able to request for repetitions of prompts during testing when he was unsure of what was said. Pt had difficulty figuring out correct amounts and patricia ng of some of the medication scenarios during testing. Pt demo'd some inc'd accuracy when gi regis inc'd time process information and double check accuracy. Memory Comments: Pt was able to recall activities from ST the previous day. Goals are progressing unless otherwise indicated. Education Completed Education Topics: [x] Cognition: Educate on speech-language pathology role, sessions activities, results, sa fety precautions, plan of care, and homework activities [] Speech: Educate on speech-language pathology role, sessions activities, results, plan of care, and homework activities. [] Language: Educate on speech-language pathology role, sessions activities, results, pl an of care, and homework activities. Completed with: [x] Patient [] Spouse [] Significant other [] Family [] C aregiver [] Other Completed by: [x] Verbal education [x] Demonstration [] Handout [] Other: Response to Education: [x] Stated Understanding [x] Reinforcement necessary [] Retur asa demonstration [] Demonstrated understanding [] No evidence of learning [] Refused Tereza Montanez MS CCC-HOSPITAL COOK ristobal, Felipe Obrien MD - 11/21/2017 7:24 AM PDTFormatting of this note might be different from the arin delgadillo Progress Notes by Wing Micah Jain MD at 11/21/17723 Author: Wing Micah Jain MD Service: (none) Author Type: Physician Filed: 11/21/17723 Date of Service: 11/21/17723 Status: Signed Hooking Machine Operator: Wing Micah Jain MD (Physician) [facility] Service: Physical Medicine & Rehab Progress Note Hospital Day: LOS: 7 days SUBJECTIVE Patient Summary: The patient INR at 2.7, cont with Coumadin 3 mg daily. SBA for transfers and gait, one mild LOB during ambulation end gait but able to self correc t. Completed 5x STS 48.6s, indicates increased fall risk and decreased endurance ROS: No current complaints of neurological problems such as new weakness, numbness, tinglin g, visual changes. No complaints of CVS, pulmonary, GI, , integument, probs. No complaints of SOB,CP,NAUSEA, swallowing problems or pain problems. No complaints of sleeping difficult y. No complaints of anxiety or depression. Scheduled Medications aspirin 81 mg Oral Daily atorvastatin 20 mg Oral Nightly calcitonin (salmon) 1 spray Alternating Nares Daily co-enzyme Q-10 200 mg Oral Daily digoxin 0.125 mg Oral Daily diltiazem 240 mg Oral Daily doxazosin 2 mg Oral Nightly furosemide 40 mg Oral Daily levofloxacin 500 mg Oral QDQ Lidocaine 1 patch Transdermal Daily methocarbamol 1,500 mg Oral 4x Daily multivitamin with minerals 1 tablet Oral Daily oxybutynin 10 mg Oral TID oxyCODONE 10 mg Oral 4x Daily senna 2 tablet Oral Nightly spironolactone 12.5 mg Oral Daily umeclidinium-vilanterol 1 puff Inhalation Daily warfarin 2.5 mg Oral Daily PRN Medications acetaminophen OR acetaminophen, ipratropium-albuterol, ondansetron OR ondansetron, oxyCODONE-acetaminophen, oxyCODONE-acetaminophen, polyethylene glycol, zolpidem OBJECTIVE Vital Signs: BP 119/72 (BP Location: Left upper arm) | Pulse 85 | Temp 96.2 F (35.7 C) (Oral) | R santiago 16 | Ht 1.753 m (5' 9") | Wt 69.3 kg (152 lb 12.8 oz) | SpO2 94% | BMI 22.56 kg/m General Appearance: Alert, cooperative, no distress. Head: symmetrical Eyes: reactive Lungs: clear Chest wall: nontender Heart: regular Abdomen: soft Extremities: Negative edema Pulses: regular Skin: intact DATA Results for orders placed or performed during the hospital encounter of 11/14/17 (from the past 24 hour(s)) Protime-INR Collection Time: 11/21/17 5:48 AM Result Value Ref Range INR 2.7 ASSESSMENT & PLAN Patient Active Hospital Problem List: Compression fracture of lumbar vertebra (HCC) (11/09/2012) Assessment: improving Plan: cont with pain management Lumbar degenerative disc disease (11/09/2012) Assessment: stable Plan: pain management T12 compression fracture ([facility]) (09/19/2017) Assessment: stable Plan: pain management Chronic atrial fibrillation ([facility]) (09/19/2017) Assessment: stable Plan: cont with Digoxin COPD, 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 2) Mobility ADL/dysfunction - continue OT for ADL's, IADL's, functional transfers, equipmen t evaluation, family training. 3) Mobility dysfunction - continue 24 hr. Rehab nursing for bowel, bladder skin pain sleep. Wing Micah. Cristobal, MD 11/21/20177:24 AM Mariajose Bajwa OTR/Gaby - 11/20/2017 3:25 PM PDT Therapy Progress Note by GURWINDER Mortensen at 11/20/17 1525 Author: GURWINDER Mortensen Service: (none) Author Type: Occupational Therapist Filed: 11/20/17 5206 Date of Service: 11/20/17 1525 Status: Signed Hooking Machine Operator: GURWINDER Mortensen (Occupational Therapist) OCCUPATIONAL THERAPY TREATMENT NOTE OT Received On: 11/20/17 Reason for Treatment: Other (comment) (T12 compression fx) Requires OT Follow Up: Yes Assistance Required: 1 person Workforce Planning Analyst Needed: No Family/Caregiver Present: No Recommendation: (cont IPR) Equipment Recommended: Faculty Neuropsychologist, Sock aid, Shoe horn long handled, Sponge long handled, Leg liftner Requires OT Follow Up: Yes Plan Treatment Interventions: (per OT POC) Progress: Progressing toward goals Requires OT Follow Up: Yes Focus for next session: functional mobility, AE with LB dressing Follow up OT only? [] Yes [x] No Precautions Spinal Precautions: TLSO on when upright, Lumbar Other Precautions: Fall precautions, SpO2>/=88%, pre-medicate for pain Summary Pt supine in bed upon OT arrival, pt using urinal, pt completed task indep, set up assist t o empty urinal. Bed mobility OOB supervised, into bed min A for 1 LE into bed, STS to FWW sb a, functional mobility to shower room and back to room with FWW sba. Pt left supine in bed a t end of session with no other needs identified. Pt able to kait/doff TLSO with min . Tub Transfers Tub Transfer From: Walker Tub Transfer Type: To and From Tub Transfer to: Standing Tub Transfer Technique: Lateral Tub Transfers: Contact guard Tub Transfers Comments: Pt able to side step into tub using grab bars and FWW. No pain repo rted. Safety Devices in Place: Yes Type of Devices: Bed alarm, Call lite in place Barriers to d/c at this time include: [] Home environment [] Family support [x] Equipment needs [] Cognitive deficits impacting functional independence [x] Physical deficits impacting functional independence [x] Self-care deficits impacting functional independence [] Other Pain The patient reported pain rated at a 5/10. RN was notified Education Completed: Education Topics: Tub transfer, functional and bed mobility Completed with: [x] Patient [] Spouse [] Significant other [] Family [] C aregiver [] Other Completed by :[x] Verbal education [] Demonstration [] Handout [] Other: Response to Education: [x] Stated Understanding [] Reinforcement necessary [] Returned demonstration [] Demonstrated understanding [] No evidence of learning [] Refused onversion Transa ction, Provider Unknown - 11/20/2017 1:30 PM PDT Therapy Progress Note by Samira Sanders PT at 11/20/17 1330 Author: Samira Sanders PT Service: (none) Author Type: Physical Therapist Filed: 11/20/17 7263 Date of Service: 11/20/170 Status: Signed Hooking Machine Operator: Samira Sanders PT (Physical Therapist) PHYSICAL THERAPY TREATMENT NOTE PT Received On: 11/20/17 Reason for Treatment: Other (comment) (s/p fall with compression fx, SOB with CHF exacerbat ion) Requires PT Follow Up: Yes Follow up PT Only?: No Assistance Required: 1 person Recommendations: IRF Plan Treatment/Interventions: Continue per Primary PT POC Progress: Progressing toward goals Summary Comments: Pt in bed upon entry, agreeable to PT. Pt w/need to urinate at beginning of sess ion, able to complete, assist only to empty. SBA for transfers and gait, one mild LOB durin g ambulation end gait but able to self correct. Completed 5x STS 48.6s, indicates increased fall risk and decreased endurance (norm <15 age-matched). May benefit from formal balance testing. Progress activity tolerance as able. Precautions Spinal Precautions: TLSO on when upright Other Precautions: Fall precautions, SpO2>/=88%, pre-medicate for pain Cognition Overall Cognitive Status: Within Functional Limits Orientation Level: Oriented FUNCTIONAL MOBILITY Bed Mobility Rolling: Modified independent Sidelying to Sit: Modified independent - Transfers Sit to/from Stand: Standby assist Ambulation Maximal Ambulation Distance (feet): 75x2 Total Ambulation Distance (feet): 150 Ambulation Assistance: Standby assist Distance limited by?: Patient's ability Pattern: Alternating, Decreased garland Assistive Device: Walker front wheeled BALANCE Static Standing Balance Static Standing-Balance Support: Right upper extremity support, Left upper extremity suppor t Static Standing-Level of Assistance: Standby assist Activity Tolerance: Patient limited by fatigue (decreased HERNANDEZ) Safety Devices in Place: (call light in reach, chair alarm) The patient reported pain rated at a 4/10. RN was notified (Jody). Other measures provided to relieve pts pain included: rest, repositioning Education Completed: Education Topics: [x] Rationale for PT [x] PT POC [x] DC planning [x] Precautions [] Exercises [x] Bed mobility [x] Transfer training with hand placement [x] Gait training [] Stair training [] Use of gait belt [] Other Completed with: [x] Patient [] Spouse [] Significant other [] Family [] C aregiver [] Other Completed by: [x] Verbal education [x] Demonstration [] Handout [] Other: Response to Education: [x] Stated Understanding [x] Reinforcement necessary [] Returned demonstration [] Demonstrated understanding [] No evidence of learning [] Refused onver kelin Sun Provider Unknown - 11/20/2017 11:00 AM PDT Therapy Progress Note by Samira Sanders PT at 11/20/17 1100 Author: Samira Sanders PT Service: (none) Author Type: Physical Therapist Filed: 11/20/17 1328 Date of Service: 11/20/17 1100 Status: Signed Hooking Machine Operator: Samira Sanders PT (Physical Therapist) PHYSICAL THERAPY TREATMENT NOTE PT Received On: 11/20/17 Reason for Treatment: Other (comment) (s/p fall with compression fx, SOB with CHF exacerbat ion) Requires PT Follow Up: Yes Follow up PT Only?: No Assistance Required: 1 person Recommendations: IRF Plan Treatment/Interventions: Continue per Primary PT POC Progress: Progressing toward goals Summary Comments: Pt in bed upon entry, agreeable to PT. Noted feeling much better "I'm almost catarina k to where I was before". Pt continues to ambulate >50ft consistently, improved to SBA, min v.i. for pacing. Trialed step up and able to complete 4" step in //bars with SBA. WOuld b enefit from progression of stair training as he has step entry to home. Also trialed Nustep . Able to complete 5min intervals with rest breaks between, progress activity tolerance as able. Precautions Spinal Precautions: TLSO on when upright Other Precautions: Fall precautions, SpO2>/=88%, pre-medicate for pain Cognition Overall Cognitive Status: Within Functional Limits Orientation Level: Oriented FUNCTIONAL MOBILITY Bed Mobility Rolling: Modified independent Sidelying to Sit: Modified independent (extra time) - Transfers Sit to/from Stand: Standby assist Ambulation Maximal Ambulation Distance (feet): 65 Total Ambulation Distance (feet): 65 Ambulation Assistance: Standby assist Distance limited by?: Patient's ability Pattern: Alternating, Decreased garland Assistive Device: Walker front wheeled Stairs Number of Stairs: 4, 4" STEPS in //bars Stairs Assistance: Standby assist Number of stairs limited by?: Patient's ability Stair Management Technique: Step-to, Rails bilateral (//bars) Wheelchair Mobility Maximal Wheelchair Distance (feet): 200 Total Wheelchair Distance (feet): 200 Wheelchair: Supervision Distance limited by?: Patient's ability Wheelchair Propulsion: BUE, BLE Wheelchair Type: Standard Wheelchair Surface: Linoleum Wheelchair Management: Brake Right, Brake Left Wheelchair Cushion Type: Folded blanket (waffle) Wheelchair Pressure Relief: Verbal Instruction THERAPEUTIC EXERCISE Equipment Use Equipment Used: Nu Step Nu Step : L0 BUE/LE 2x5min for global strength/conditioning to increase activity tolerance and promote functional mobility. Activity Tolerance: Patient limited by fatigue Safety Devices in Place: (call light in reach, chair alarm) The patient demonstrated no indication of pain during therapy session. Education Completed: Education Topics: [x] Rationale for PT [x] PT POC [x] DC planning [x] Precautions [x] Exercises [] Bed mobility [x] Transfer training with hand placement [x] Gait training [] Stair training [] Use of gait belt [x] Other Completed with: [x] Patient [] Spouse [] Significant other [] Family [] C aregiver [] Other Completed by: [x] Verbal education [x] Demonstration [] Handout [] Other: Response to Education: [x] Stated Understanding [x] Reinforcement necessary [] Returned demonstration [] Demonstrated understanding [] No evidence of learning [] Refused Mariajose Bajwa OTR/L - 11/20/2017 10:00 AM PDTFormatting of this note might be different from brent vazquez original. Therapy Progress Note by GURWINDER Mortensen at 11/20/17 1000 Author: GURWINDER Mortensen Service: (none) Author Type: Occupational Therapist Filed: 11/20/17 1548 Date of Service: 11/20/17 1000 Status: Signed Hooking Machine Operator: GURWINDER Mortensen (Occupational Therapist) OCCUPATIONAL THERAPY TREATMENT NOTE OT Received On: 11/20/17 Reason for Treatment: Other (comment), Deconditioning (T12 compression fx) Requires OT Follow Up: Yes Assistance Required: 1 person Workforce Planning Analyst Needed: No Family/Caregiver Present: No Recommendation: (cont IPR) Equipment Recommended: Faculty Neuropsychologist, Sock aid, Shoe horn long handled, Sponge long handled, Leg liftner Requires OT Follow Up: Yes Plan Treatment Interventions: (per OT POC) Progress: Progressing toward goals Requires OT Follow Up: Yes Focus for next session: tub transfer Follow up OT only? [] Yes [x] No Precautions Spinal Precautions: TLSO on when upright, Lumbar Other Precautions: Fall precautions, SpO2>/=88%, pre-medicate for pain Summary Pt supine in bed upon OT arrival, pt agreeable to therapy. Pt participated in shower/adl. B ed mobility OOB sba. Transfer to from EOB sba, pt able to maintain back precautions. Pt c ompleted shower/adls, assisted back to bed due to pain level at 8-9/10 sba, bed mobility int o bed min A. Pt left supine in bed with TLSO on, RN assisted with repositioning. Pt had no o ther needs identified. Safety Devices in Place: Yes Type of Devices: Bed alarm, Call lite in place FIM Grooming Which grooming tasks completed during this session?: Wash/rinse/dry hands, Wash/rinse/dry f jeannette Patient completed % of overall grooming tasks: 100 Percent Grooming Final Score: Supervision/Set-up Bathing Which bathing tasks were completed during this session?: Arm right, Arm left, Chest, Abdome n, Perineal area front, Buttocks, Leg lower left and foot, Leg upper right, Leg upper left, Leg lower right and foot Patient completed % of overall bathing task: 70 Percent Bathing Final Score: Moderate Assistance Upper Body Dressing Clothing Items Worn This Session: addictions recovery specialist shirt Upper Body Dressing Final Score: Minimal Assistance Lower Body Dressing Clothing Items Worn This Session: Socks, Pants % Dressing Tasks Completed : 60 % Lower Body Dressing Final Score: Moderate Assistance Transfer Bed/Chair Wheelchair Transfers: Bed, Chair, Wheelchair Final Score: Supervision/Set-up Transfer Tub/Shower Transfers: Supervision Barriers to d/c at this time include: [] Home environment [] Family support [x] Equipment needs [] Cognitive deficits impacting functional independence [x] Physical deficits impacting functional independence [x] Self-care deficits impacting functional independence [] Other Pain The patient reported pain rated at a 8-9/10. RN was notified, pain meds given prior to OT a rrival Education Completed: Education Topics: adl, transfers Completed with: [x] Patient [] Spouse [] Significant other [] Family [] C aregiver [] Other Completed by :[x] Verbal education [] Demonstration [] Handout [] Other: Response to Education: [x] Stated Understanding [] Reinforcement necessary [] Returned demonstration [] Demonstrated understanding [] No evidence of learning [] Refused onversion Transa ction, Provider Unknown - 11/20/2017 9:15 AM PDT Therapy Progress Note by TREY Grubbs at 11/20/17914 Author: TREY Grubbs Service: (none) Author Type: Speech and Legal Collector ologist Filed: 11/20/17 0080 Date of Service: 11/20/17914 Status: Addendum Hooking Machine Operator: CHAYITO GrubbsHOSPITAL COOK (Speech and Language Pathologist) Related Notes: Original Note by Savita Sandoval, HOSPITAL COOK-S (Speech Therapist) filed at 11/04 01/21 1129 ADULT STANDARDIZED TESTS HOSPITAL COOK Last Visit HOSPITAL COOK Received On: 11/20/17 Requires HOSPITAL COOK Follow Up: Yes Plan of Care Treatment Plan: Continue with current plan, Cognitive evaluation/treatment Treatment Frequency: 4-6 x/week Assessment of Language-Related Functional Activities Reading instructions # correct: 9 Reading instructions % correct: 90 Reading instructions IFR: 1 Using the telephone # correct: 10 Using the telephone % correct: 50 Using the telephone IFR: 1 Writing a phone message # correct: 3 Clinical impressions: Patient to benefit from minimal supervision and assist with reading i nstructions to ensure comprehension however d/t reduced legibility and recall mod/max assist with recall of phone messages at this time. SPEECH - LANGUAGE - COGNITION HOSPITAL COOK Received On: 11/20/17 Requires HOSPITAL COOK Follow Up: Yes Treatment Plan: Continue with current plan, Cognitive evaluation/treatment Treatment Frequency: 4-6 x/week Session type: Treatment Family/Caregiver Present: No Expression Primary Mode of Expression: Verbal Cognition Problem Solving Comments: Pt re-read prompt to answer question when he couldn't remember ex act answer Reasoning Comments: Pt initiated writing phone messages down, however with reduced legibili ty. When showed his messages was not able to read them or recall message. Pt demonstrated aw areness to limitation in writing (I.e. recognizing that writing messages may not be function al strategy to improve recall of newly heard information) and impaired recall, asking for ST to repeat information. Discussed alternative ways to improve recall of/keep track of messag es. Memory: Impaired Memory Comments: Pt able to remember answers from reading prompts without referring back to them 2x. Pt recalled ST student from prior day and with minimal cueing prior conversation t opics. Activity Tolerance Activity Tolerance: Patient tolerated treatment well Goals are progressing unless otherwise indicated. Education Completed Education Topics: [x] Cognition: Educate on speech-language pathology role, sessions activities, results, sa fety precautions, plan of care, and homework activities [] Speech: Educate on speech-language pathology role, sessions activities, results, plan of care, and homework activities. [] Language: Educate on speech-language pathology role, sessions activities, results, pl an of care, and homework activities. Completed with: [x] Patient [] Spouse [] Significant other [] Family [] C aregiver [] Other Completed by: [x] Verbal education [] Demonstration [] Handout [] Other: Response to Education: [x] Stated Understanding [] Reinforcement necessary [] Return ed demonstration [] Demonstrated understanding [] No evidence of learning [] Refused Savita Sandoval, HOSPITAL COOK-S 11/20/2017 Student therapist educationally participated in therapy session under the supervision of brent vazquez licensed therapist. This note was created by the student therapist and co-signed by the li censed therapist. Information in this note may have been obtained from flowsheet charting. T his note is co-signed at the treatment plan/progress note level. The patient approved of brent vazquez student's role in care. Dulce Branch CCC-HOSPITAL COOK Wing Micah Lopes MD - 11/20/2017 6:53 AM PDTFormatting of this note might be different from the orig inal. Progress Notes by Wing Micah Jain MD at 11/20/17 0653 Author: Wing Micah Jain MD Service: (none) Author Type: Physician Filed: 11/20/17 0739 Date of Service: 11/20/17652 Status: Addendum Hooking Machine Operator: Wing Micah Jain MD (Physician) Related Notes: Original Note by Wing Micah Jain MD (Physician) filed at 11/20/17 0653 [facility] Service: Physical Medicine & Rehab Progress Note Hospital Day: LOS: 6 days SUBJECTIVE Patient Summary: The patient INR at 2.6, will reduce Coumadin to 2.5 mg daily. He garcia s frequent small urination with 100 cc PVR. Will start Ditropan. Pt significantly improved his ambulation tolerance. Required only intermittent cueing for r est breaks. Continues to require cueing for more knee extension due to crouched gait/energy inefficiency ROS: No current complaints of neurological problems such as new weakness, numbness, tinglin g, visual changes. No complaints of CVS, pulmonary, GI, , integument, probs. No complaints of SOB,CP,NAUSEA, swallowing problems or pain problems. No complaints of sleeping difficult y. No complaints of anxiety or depression. Scheduled Medications aspirin 81 mg Oral Daily atorvastatin 20 mg Oral Nightly calcitonin (salmon) 1 spray Alternating Nares Daily co-enzyme Q-10 200 mg Oral Daily digoxin 0.125 mg Oral Daily diltiazem 240 mg Oral Daily doxazosin 2 mg Oral Nightly furosemide 40 mg Oral Daily levofloxacin 500 mg Oral QDQ Lidocaine 1 patch Transdermal Daily methocarbamol 1,500 mg Oral 4x Daily multivitamin with minerals 1 tablet Oral Daily oxyCODONE 10 mg Oral 4x Daily senna 2 tablet Oral Nightly spironolactone 12.5 mg Oral Daily umeclidinium-vilanterol 1 puff Inhalation Daily warfarin 2.5 mg Oral Daily PRN Medications acetaminophen OR acetaminophen, ipratropium-albuterol, ondansetron OR ondansetron, oxyCODONE-acetaminophen, oxyCODONE-acetaminophen, polyethylene glycol, zolpidem OBJECTIVE Vital Signs: BP 124/71 (BP Location: Left upper arm) | Pulse 86 | Temp 97 F (36.1 C) (Oral) | Res p 18 | Ht 1.753 m (5' 9") | Wt 67.9 kg (149 lb 9.6 oz) | SpO2 94% | BMI 22.09 kg/m General Appearance: Alert, cooperative, no distress. Head: symmetrical Eyes: reactive Lungs: clear Chest wall: nontender Heart: regular Abdomen: soft Extremities: Negative edema Pulses: regular Skin: intact DATA Results for orders placed or performed during the hospital encounter of 11/14/17 (from the past 24 hour(s)) Protime-INR Collection Time: 11/20/17 5:44 AM Result Value Ref Range INR 2.6 ASSESSMENT & PLAN Patient Active Hospital Problem List: Compression fracture of lumbar vertebra (HCC) (11/09/2012) Assessment: improving Plan: cont with pain management Lumbar degenerative disc disease (11/09/2012) Assessment: stable Plan: pain management T12 compression fracture (HCC) (09/19/2017) Assessment: stable Plan: pain management Chronic atrial fibrillation ([facility]) (09/19/2017) Assessment: stable Plan: cont with Digoxin COPD, 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 2) Mobility ADL/dysfunction - continue OT for ADL's, IADL's, functional transfers, equipmen t evaluation, family training. 3) Mobility dysfunction - continue 24 hr. Rehab nursing for bowel, bladder skin pain sleep. Wing Demetra Jain MD 11/20/20176:53 AM onversion Transaction, Provider Unknown - 11/20/2017 3:28 AM PDTFormatting of this note might be different from t he original. Nurse Progress Note by Juventino Velasco RN at 11/20/17327 Author: Juventino Velasco RN Service: (none) Author Type: Registered Nurse Filed: 11/20/17 0344 Date of Service: 11/20/17327 Status: Signed Hooking Machine Operator: Juventino Velasco RN (Registered Nurse) Patient set off his bed alarm this morning trying to get to the bathroom. He forgot his TL SO. When asked why he got up instead of using the urinal as he had, he stated he forgot whe re he was and what he was doing. Reoriented well with simple conversation. onver kelin Transaction, Provider Unknown - 11/19/2017 6:18 PM PDT Therapy Progress Note by Enzo Chan at 11/19/171817 Author: Enzo Chan Service: (none) Author Type: Recreational Therapist Filed: 11/19/171817 Date of Service: 11/19/171817 Status: Signed Hooking Machine Operator: Enzo Chan (Recreational Therapist) 11/19/171816 Attendance Activity Leisure planning (future plans) Therapeutic Recreation Social Skills Initiates conversation or social interaction Physical Functioning Skills Increase tolerance Cognitive Function (good) Leisure Participation Active participation Time Spent With Patient Minutes 15 Requires REC Follow Up Yes (continue possible crafts, magic cards, history journaling) onver kelin Transaction, Provider Unknown - 11/19/2017 3:05 PM PDT Therapy Progress Note by Josy Kwok PT at 11/19/17 1500 Author: Josy Kwok PT Service: (none) Author Type: Physical Therapist Filed: 11/19/17 1275 Date of Service: 11/19/171504 Status: Signed Hooking Machine Operator: Josy Kwok PT (Physical Therapist) PHYSICAL THERAPY TREATMENT NOTE PT Received On: 11/19/17 Reason for Treatment: Other (comment) (/p fall with compression fx, SOB with CHF exacerbati on) Requires PT Follow Up: Yes Follow up PT Only?: No Assistance Required: 1 person Workforce Planning Analyst Needed: No Recommendations: IRF Plan Treatment/Interventions: Continue per Primary PT POC Progress: Progressing toward goals Summary Comments: Pt supine in bed when PT arrived, agreeable to therapy. Session focused on improv ing ambulation tolerance, activity pacing and safety with ambulation. Pt significantly impro olimpia his ambulation tolerance. Required only intermittent cueing for rest breaks. Continues t o require cueing for more knee extension due to crouched gait/energy inefficiency. Pt more f atigued at end of session and required assistance to bring LEs into bed. Finished session moss pine in bed, all needs met. Precautions Spinal Precautions: TLSO on when upright Other Precautions: Fall precautions, SpO2>/=88%, pre-medicate for pain Cognition Overall Cognitive Status: Within Functional Limits Orientation Level: Oriented FUNCTIONAL MOBILITY Bed Mobility Sidelying to Sit: Mod assist (BLEs OOB or trunk to upright) Sit to Sidelying: Standby assist - Transfers Sit to/from Stand: Standby assist, Minimal assist (steadying/contact guard) Ambulation Weight Bearing Status: WBAT RLE, WBAT LLE Maximal Ambulation Distance (feet): 30-50ft Total Ambulation Distance (feet): 400ft Ambulation Assistance: Standby assist, Minimal assist Distance limited by?: Patient's ability Pattern: Alternating, Decreased garland, Right swing foot doesn't pass stance foot, Left sw ing foot doesn't pass stance foot (crouched gait) Assistive Device: Walker front wheeled Stairs Wheelchair Mobility BALANCE High Level Balance Side Stepping: Right, Left (wall rail x12 ft B) THERAPEUTIC EXERCISE Activity Tolerance: Patient limited by fatigue Nurse Made Aware: yes Safety Devices in Place: (call light, bed alarm on) The patient reported pain rated at a 6/10. RN was notified Education Completed: Education Topics: [] Rationale for PT [] PT POC [] DC planning [] Precautions [] Exercises [x] Bed mobility [] Transfer training with hand placement [] Gait training [] Stair training [] Use of gait belt [x] Other activity pacing Completed with: [x] Patient [] Spouse [] Significant other [] Family [] C aregiver [] Other Completed by: [x] Verbal education [] Demonstration [] Handout [] Other: Response to Education: [x] Stated Understanding [] Reinforcement necessary [] Returned demonstration [] Demonstrated understanding [] No evidence of learning [] Refused onver kelin Sun Provider Unknown - 11/19/2017 3:03 PM PDT Pharmacy Note by WILLIAM Byrd at 11/19/17 1503 Author: WILLIAM Byrd Service: Pharmacy Author Type: Pharmacist Filed: 11/19/17 1503 Date of Service: 11/19/17 150 Status: Attested Hooking Machine Operator: WILLIAM Byrd (Pharmacist) Cosigner: Yecenia Resendez RPH at 11/19/17 1512 Attestation signed by Yecenia Resendez RPH at 11/19/17 1512 Accompanied student on counseling session and reviewed note. Rx CHF Medication Counseling Note Patient received medication counseling for the following CHF medications: (JEANNETTE) Inhibitors: lisinopril (ZESTRIL or PRINIVIL) Diuretics: furosemide (LASIX) Digoxin Spironolactone Counseled patient on medications and the importance of adherence. Patient states he has pil l boxes at home. Counseled patient on the importance of weighing himself daily to check for weight gain. Patient states he has a scale at home. Counseled patient on importance of maint aining current medication list and updating with dc medications. Patient was alert and engag ed in counseling. WILLIAM Byrd 11/19/2017 3:00 PM Levar Reyes MS CCC-HOSPITAL COOK - 11/19/2017 1:30 PM PDT Therapy Progress Note by Daja Marrero MS CCC-HOSPITAL COOK at 11/19/17 9746 Author: Daja Marrero MS CCC-HOSPITAL COOK Service: (none) Author Type: Speech and Language Pathol ogist Filed: 11/19/17 9632 Date of Service: 11/19/17 8376 Status: Signed Hooking Machine Operator: Daja Marrero MS CCC-HOSPITAL COOK (Speech and Language Pathologist) SPEECH - LANGUAGE - COGNITION HOSPITAL [facility]OOK Received On: 11/19/17 Requires HOSPITAL COOK Follow Up: Yes Treatment Plan: Continue with current plan Session type: Treatment Family/Caregiver Present: No Cognition Problem Solving Comments: difficulty initially counting money during continuation of langua ge test. Pt able to come up with accurate amount w/min-mod cues. He then was able to complet e simple money/mental math in his head and demo correct amount w/dec'd cues. Organization Comments: Pt able to fill out an envelope w/all the appropriate information in dependently. He reports he avoids writing because his hand writing has gotten worse w/his tr emors. Pt justino to verbally sequence 4 step process for making meals x2 independently. Memory Comments: Pt reports change in his memory and he now relies on help to clean his carrie se and take care of his lawn. Goals are progressing unless otherwise indicated. HOSPITAL COOK to con't testing and indirectly work on memory w/strategies for recall as well as probl em solving of safety situations. General Goals Pt will complete formal assessment : Goal progressing Education Completed Education Topics: [x] Cognition: Educate on speech-language pathology role, sessions activities, results, sa fety precautions, plan of care, and homework activities [] Speech: Educate on speech-language pathology role, sessions activities, results, plan of care, and homework activities. [] Language: Educate on speech-language pathology role, sessions activities, results, pl an of care, and homework activities. Completed with: [x] Patient [] Spouse [] Significant other [] Family [] C aregiver [] Other Completed by: [x] Verbal education [] Demonstration [] Handout [] Other: Response to Education: [x] Stated Understanding [] Reinforcement necessary [] Return ed demonstration [] Demonstrated understanding [] No evidence of learning [] Refused DAJA MARRERO MS CCC-HOSPITAL COOK 11/19/2017 Mariajose Bajwa OTR/L - 11/19/2017 1:00 PM PDTFormatting of this note might be different from the arin edlgadillo Therapy Progress Note by GURWINDER Mortensen at 11/19/17 1300 Author: GURWINDER Mortensen Service: (none) Author Type: Occupational Therapist Filed: 11/19/17 0980 Date of Service: 11/19/17 1300 Status: Signed Hooking Machine Operator: GURWINDER Mortensen (Occupational Therapist) OCCUPATIONAL THERAPY TREATMENT NOTE OT Received On: 11/19/17 Reason for Treatment: Deconditioning, Other (comment) (T12 compression fx) Requires OT Follow Up: Yes Assistance Required: 1 person Workforce Planning Analyst Needed: No Family/Caregiver Present: No Recommendation: (cont IPR) Equipment Recommended: Faculty Neuropsychologist, Sock aid, Shoe horn long handled, Sponge long handled, Leg liftner Requires OT Follow Up: Yes Plan Treatment Interventions: (per OT POC) Progress: Progressing toward goals Requires OT Follow Up: Yes Focus for next session: strengthening, balance, transfers Follow up OT only? [] Yes [x] No Precautions Spinal Precautions: TLSO on when upright, Lumbar Other Precautions: Fall precautions, SpO2>/=88%, pre-medicate for pain Summary Pt seated in wc in room upon OT arrival, pt agreeable to therapy. Pt on 3L O2 NC during ses kelin. Pt participated in functional mobility with FWW approx 50 ft cga, STS training focusin g on body mechanics/posture/hand placement/breathing during activity. Pt educated on pacing, ECT, work simplification and AE needs for shower. Pt stated understanding. Pt left sitting in wc for HOSPITAL COOK session at end of this session, no other needs identified. Therapeutic exercise - strength Therapeutic Exercise - Strength Strength: Yes Strength Exercise: STS x 5 reps sba with for techniques. Safety Devices in Place: Yes Type of Devices: Chair alarm, Wheelchair (with HOSPITAL COOK) Barriers to d/c at this time include: [] Home environment [] Family support [x] Equipment needs [] Cognitive deficits impacting functional independence [x] Physical deficits impacting functional independence [x] Self-care deficits impacting functional independence [] Other Pain The patient did not demonstrate any signs of symptoms of pain throughout OT session Education Completed: Education Topics: STS, ECT/pacing, posture, breathing Completed with: [x] Patient [] Spouse [] Significant other [] Family [] C aregiver [] Other Completed by :[x] Verbal education [] Demonstration [] Handout [] Other: Response to Education: [x] Stated Understanding [] Reinforcement necessary [] Returned demonstration [] Demonstrated understanding [] No evidence of learning [] Refused onversion Transa ction, Provider Unknown - 11/19/2017 11:30 AM PDT Therapy Progress Note by Samira Sanders PT at 11/19/17 1130 Author: Samira Sanders PT Service: (none) Author Type: Physical Therapist Filed: 11/19/17 4762 Date of Service: 11/19/170 Status: Signed Hooking Machine Operator: Samira Sanders PT (Physical Therapist) PHYSICAL THERAPY TREATMENT NOTE PT Received On: 11/19/17 Reason for Treatment: Other (comment) (Other (comment) (s/p fall with compression fx, SOB w ith CHF ) Requires PT Follow Up: Yes Follow up PT Only?: No Assistance Required: 1 person Recommendations: IRF Plan Treatment/Interventions: Continue per Primary PT POC Progress: Progressing toward goals Summary Comments: Pt in bed upon entry, agreable to PT. Focus on activity tolerance/gait. Educati on on PLB/breath control and valsalva prevention w/transtions. Increased gait distance up t o 75ft with decreased HERNANDEZ. Does require extended rest breaks for recovery. Progress as deacon erated. Precautions Spinal Precautions: TLSO on when upright, Lumbar Other Precautions: Fall precautions, SpO2>/=88%, pre-medicate for pain Cognition Overall Cognitive Status: Within Functional Limits Orientation Level: Oriented FUNCTIONAL MOBILITY Bed Mobility Rolling: Modified independent - Transfers Sit to/from Stand: Standby assist Stand Pivot Transfers: Standby assist Ambulation Maximal Ambulation Distance (feet): 75x2+50 Total Ambulation Distance (feet): 200 Ambulation Assistance: Minimal assist Distance limited by?: Patient's ability Pattern: Alternating, Decreased garland Assistive Device: Walker front wheeled Activity Tolerance: Patient limited by fatigue, Patient limited by shortness of breath (SOB ) Nurse Made Aware: RN Marisol notified of pt status and recommendations; c/o pn Safety Devices in Place: Yes (call light in reach, chair alarm) The patient reported pain rated at a 6/10. RN was notified (Marisol). Other measures provided to relieve pts pain included: repositioning, rest Education Completed: Education Topics: [x] Rationale for PT [x] PT POC [] DC planning [x] Precautions [x] Exercises [] Bed mobility [x] Transfer training with hand placement [x] Gait training [] Stair training [] Use of gait belt [] Other Completed with: [x] Patient [] Spouse [] Significant other [] Family [] C aregiver [] Other Completed by: [x] Verbal education [x] Demonstration [] Handout [] Other: Response to Education: [x] Stated Understanding [x] Reinforcement necessary [] Returned demonstration [] Demonstrated understanding [] No evidence of learning [] Refused O2 95% HR91 end activity onver kelin Transaction, Provider Unknown - 11/19/2017 11:18 AM PDT Case Management by RONNELL Rangel at 11/19/17 1118 Author: RONNELL Rangel Service: (none) Author Type: Government Property Inspector Filed: 11/19/17 111 Date of Service: 11/19/171117 Status: Signed Hooking Machine Operator: RONNELL Rangel (Government Property Inspector) The interdisciplinary team rounded with the patient and family (son and DIL) after team con ference. A copy of the team conference was provided and questions were answered. RONNELL RM 11/19/2017 11:18 AM onver kelin Higginsaction, Provider Unknown - 11/19/2017 9:56 AM PDT Case Management by RONNELL Rangel at 05/955 Author: RONNELL Rangel Service: (none) Author Type: Government Property Inspector Filed: 11/19/1758 Date of Service: 11/19/17955 Status: Signed Hooking Machine Operator: RONNELL Rangel (Government Property Inspector) Met with pt, son and DIL to discuss dcp. Provided information for traveling notaries. Pt' s PCP has recently retired therefore will need to follow-up with his office to see who will provide services. Pt's Mantel Craftsman is Dr. Knox, they would prefer for him to monitor INR i f possible. onver kelin Transaction, Provider Unknown - 11/19/2017 8:15 AM PDT Therapy Progress Note by SABAS Carr/Gaby at 11/19/17814 Author: GURWINDER Carr Service: (none) Author Type: Occupational Therapist Filed: 11/19/1748 Date of Service: 11/19/17814 Status: Addendum Hooking Machine Operator: GURWINDER Carr (Occupational Therapist) Related Notes: Original Note by GURWINDER Carr (Occupational Therapist) filed at 39 OCCUPATIONAL THERAPY TREATMENT NOTE OT Received On: 11/19/17 Reason for Treatment: Deconditioning Requires OT Follow Up: Yes Assistance Required: 1 person Workforce Planning Analyst Needed: No Family/Caregiver Present: No Recommendation: (cont IPR) Equipment Recommended: Faculty Neuropsychologist, Sock aid, Shoe horn long handled, Sponge long handled, Leg liftner Requires OT Follow Up: Yes Plan Treatment Interventions: (Per OT POC) Progress: Progressing toward goals Requires OT Follow Up: Yes Focus for next session: tub/shower transfer, retrieval tasks, further AE training Follow up OT only? [] Yes [x] No Precautions Spinal Precautions: TLSO on when upright, Lumbar Other Precautions: Fall precautions, SpO2>/=88%, pre-medicate for pain Summary Pt agreeable to session this AM. This OT and OTS present in room. Pt aware of student's rol e and willing for participation/observation throughout OT tx. Primary focus on ADLs and AE t raining. Pt reported 7/10 pain, and was recently provided with pain medication prior to OT a rrival. BP @ 111/71, heart rate 90, O2 sats @ 93% on 3.5L of O2. Pt demonstrates increased S OB throughout activity, requiring VCs for rest breaks. Peak activity O2 sats at 92%. VCs for pursed lip breathing. ADL/IADL UE Dressing UE Dressing Level of Assistance: Minimum assistance (TLSO) UE Dressing Where Assessed: Edge of bed UE Dressing Comments: Pt already dressed prior to OT arrival. Pt seated EOB to don TLSO-pt was able to verbalize donning/doffing, with assistance of 1 person. LE Dressing LE Dressing Adaptive Equipment: Faculty Neuropsychologist, Sock aide Sock Level of Assistance: Setup, Minimal verbal cues Shoe Level of Assistance: Setup, Minimal verbal cues LE Dressing Where Assessed: Wheelchair LE Dressing Comments: Reviewed use of AE, including powerhouse mechanic helper & sockaid. Pt still requiring V Cs for technique. Pt was able to don sandals when top strap (closest to toe) already fastene d. Pt was able to grab onto strap closest to ankle with use of the powerhouse mechanic helper. Additional time to complete, but was successful. Reviewed locations to purchase AE and benefits to its use, including reinforcing back precautions and increasing independence in ADLs. Functional Standing Tolerance Time: 4+ Activity: Retrieval tasks with use of FWW and powerhouse mechanic helper. Comments: Pt was able to reach for items high/low placed in room with use of FWW and reache r. Pt requiring cueing for FWW placement, to reinforce precautions. pt had a tendency to fle x knees, requiring cueing for upright positioning. Pt also had a tendency to hold his breath . O2 sats remained in low 90s throughout session. Pt with increased SOB, VCs to initiate a s eated rest break. Min A while in standing, no LOB throughout activity, however when pt fatig ued he had a tendency to flex knees in bent position. Safety Devices in Place: Yes Type of Devices: Bed alarm, Call lite in place (seated in bed) FIM Grooming Which grooming tasks completed during this session?: Wash/rinse/dry hands, Wash/rinse/dry f jeannette Patient completed % of overall grooming tasks: 100 Percent Grooming Final Score: Supervision/Set-up Transfer Bed/Chair Wheelchair Transfers: Bed, Chair, Wheelchair Final Score: Moderate Assistance Comprehension Comprehension Final Score: 6 - Modified independence Expression Expression Final Score : Modified independence Social Interaction Social Interaction Final Score: Complete Bryant Problem Solving Problem Solving Final Score: Modified Bryant Memory Memory Final Score: Modified Bryant Pain The patient reported pain rated at a 7/10. RN provided medication prior to OT arrival. Pt a ssisted back into bed at end of session. Education Completed: Education Topics: ADLs, AE training, home safety questionnaire Completed with: [x] Patient [] Spouse [] Significant other [] Family [] C aregiver [] Other Completed by :[x] Verbal education [x] Demonstration [] Handout [] Other: Response to Education: [x] Stated Understanding [x] Reinforcement necessary [x] Returned demonstration [x] Demonstrated understanding [] No evidence of learning [] Refused Addendum to add home safety questionnaire [facility] Occupational Therapy Department Home Safety Assessment 1. What is the month? November 2. What is the day? 3. What is the year? 2017 4. If there is a storm at night and the electricity went off, what would you do? (get a fla shlight, light a candle, go to a friends house for the night, call the special events manager) to go sleep, (with cueing) grab a flashlight 5. What would you do if it was still off the next day? (call the [employer]) call someon e; son or [employer] 6. What type of heat source do you have in your home? (electricity, gas, oil, wood, other) electric 7. If it is snowing outside and your heat wasn t working, what would you do? (put on warm clothing, stay with a friend, call the electric/gas company) blankets 8. Who would you call to fix your heat? [facility] 9. If there is a tear in the carpet between your bed and the bathroom, what could happen? f all 10. What should you do about the tear? (do not score a point if pt says to cover tear) take the carpet out, repair or replace 11. The electric wall outlet where a lamp is plugged in begins to smoke, what should you do first? (turn off the breaker, fisher scallop, call fire department to find out) unplug the la mp 12. What should you do next? (pull plug if breaker is off, fisher scallop, etc) turn the dong ker off 13. Would you try to use this outlet again? (not until it s fixed) no 14. What is our National Emergency Number? (911) 911 15. What emergency services does 911 connect you with? (Fire, police, ambulance-must say 2 services to get the point) fire, police 16. Would you call 911 if you have a grease fire in your frying young? (no if the fire is con tained in young, if uncontrolled, then yes) first contain the fire, then call 911 17. What would you do to put out a grease fire? (place a lid over it, sprinkle baking soda or salt on it) cover it up or smother 18. If you cotton picker the phone to call 911 during an emergency and there is no dial tone, wha t should you do? (wiggle the connection, use a cell phone, go to neighbor/pay phone, flag do wn a car) use a cell phone 19. Name a situation where you would need to call 911? (fire, person unconscious, saw an ac cident, heaving bleeding, etc) fire 20. Name another situation where you would need to call 911? (fire, person unconscious, saw an accident, heaving bleeding, etc) injured 21. If your smoke alarm goes off, what would you do? (look for fire or smoke, get out and c all 911, wave a paper under the alarm to shut it off if you know it is safe, etc) look for s moke or fire; handle it 22. What would you do if you fell and couldn t get up and the phone was out of reach? (pu ll the phone cord to bring the phone down where you can reach it, crawl to the door and yell for help, push life alert, use cell phone, etc) crawl to get the cell phone Assessment completed with: Prompting to clarify or for more complete responses-pt missed 25-50%-pt may need supervisi on for safety at home Patient score: 21/22 Additional comments: Pt answered appropriately throughout the home safety questionnaire. P t did need cueing for clarification/prompting to answer correctly. Pt reported he may be sta mariluz with his son prior to returning home. onver kelin Transaction, Provider Unknown - 11/18/2017 6:20 PM PDT Therapy Progress Note by Enzo Chan at 11/18/171819 Author: Enzo Chan Service: (none) Author Type: Recreational Therapist Filed: 11/18/171819 Date of Service: 11/18/171819 Status: Signed Hooking Machine Operator: Enzo Chan (Recreational Therapist) 11/18/171817 Attendance Activity Leisure planning (basketball ) Therapeutic Recreation Social Skills Initiates conversation or social interaction Physical Functioning Skills Increase tolerance Cognitive Function (good) Leisure Participation Active participation Satisfied with Leisure Interest Yes Time Spent With Patient Minutes 15 Requires REC Follow Up Yes (continue history journal, magiccards, possible craft project) onver kelin Transaction, Provider Unknown - 11/18/2017 3:53 PM PDT Pharmacy Note by Shena Loredo RPH at 11/18/17 887 Author: Shena Loredo RPH Service: Pharmacy Author Type: Pharmacist Filed: 11/18/17 155 Date of Service: 11/18/171552 Status: Signed Hooking Machine Operator: Shena Loredo RPH (Pharmacist) Antimicrobial Stewardship Team Note Duration of Therapy Recommendation Patient: Yeyo Casarez Attending: Wing Micah Jain MD Admission Date: [id number] Current Antimicrobial Medications: Anti-infectives Start Dose/Rate Route Frequency Ordered Stop 11/18/17 1000 levofloxacin (LEVAQUIN) tablet 500 mg Ordering Provider: Wing Micah Jain MD 500 mg Oral Daily 11/18/17 0711 11/25/17 0959 Current Labs: Lab Results Component Value Date/Time WBC 10.04 11/14/2017 05:15 AM WBC 9.11 11/13/2017 05:17 AM WBC 10.62 11/12/2017 02:15 AM PCALX <0.05 11/12/2017 02:15 AM Current Indication/Therapy: Treatment Indication: Urinary Tract Infection Anti-Infective: PO levofloxacin Assessment/Recommendation: Stewardship Recommendation Type: Optimize duration of therapy Recommended Duration of Therapy: 3 days Recommendation Comment: Patient was started on levofloxacin today for enterococcus growth i n urine culture. Unsure if patient has been reporting any symptoms and UA only showed leukoc ytes otherwise no bacteria detected. If true UTI process and concerned for an uncomplicated lower UTI recommend a 3 day duration as opposed to 7 days as new studies have shown effectiv e treatment with shorter course which lowers risk of potential side effects by avoiding a lo nger course of fluoroquinilone use. (Stewardship Recommendation Review Status: Pending MD Evaluation) Submitted by: Shena Loredo, Cristóbal Disclaimer: The recommendations from the Antibiotic Stewardship Program are derived from a review of the medical records and not a history and/or physical. The recommendations are n ot a substitute for either clinical judgement or an infectious disease consultation and are not binding. onver kelin Transaction, Provider Unknown - 11/18/2017 2:50 PM PDT Therapy Progress Note by EVANGELIST Braun at 11/18/17 1458 Author: EVANGELIST Braun Service: (none) Author Type: Physical Therapist Filed: 11/18/17 3527 Date of Service: 11/18/171449 Status: Attested Hooking Machine Operator: EVANGELIST Braun (Physical Therapist) Cosigner: Josy Kwok PT at 6 Attestation signed by Josy Kwok PT at 11/18/17 162 Student therapist educationally participated in therapy session under the supervision of brent vazquez licensed therapist. This note was created by the student therapist and co-signed by the [facility] centered therapist. Information in this note may have been obtained from flowsheet charting. T his note is co-signed at the treatment plan/progress note level. The patient approved of brent vazquez student's role in care. PHYSICAL THERAPY TREATMENT NOTE PT Received On: 11/18/17 Reason for Treatment: Other (comment) (Other (comment) (s/p fall with compression fx, SOB w ith CHF ) Requires PT Follow Up: Yes Follow up PT Only?: No Focus for Next Treatment: (standing balance, endurance) PT Eval/Reassessment Date: 11/18/17 Assistance Required: 1 person Recommendations: IRF Equipment Recommended: Walker front wheeled, Walker 4 wheeled Barriers to Discharge: Physical Deficits Impacting Functional Bryant, Self-care Defic its Impacting Functional Bryant, Equipment Needs (see comment) Plan Treatment/Interventions: Continue per Primary PT POC Progress: Progressing toward goals PT Frequency: 5-7x/wk, Once per day, Twice a day Care Duration (# of days): 7 # of days Summary Comments: Pt supine in bed when PT arrived, agreeable to therapy. Session focused on HS str etching to improve contractures for better standing tolerance and endurance. Pt demonstrates better upright posture after HS stretcghing. Pt ambulates with crouched gait, taking freque nt rest breaks to catch breath by taking deep breaths. Pt demonstartes good self-pacing for rest breaks to prevent severe SOB. Pt demonstrates safe w/c mobility. Finished session in w/ c with all needs met. Precautions Spinal Precautions: TLSO on when upright Other Precautions: fall risk, SpO2>/= 88%, pre medicate for pain Cognition Overall Cognitive Status: Within Functional Limits Orientation Level: Oriented Oriented: x 4 FUNCTIONAL MOBILITY Bed Mobility Rolling: Modified independent Sidelying to Sit: Supervision - Transfers Sit to/from Stand: Minimal assist (steadying/contact guard) Stand Pivot Transfers: Minimal assist (steadying/contact guard) Ambulation Weight Bearing Status: WBAT RLE, WBAT LLE Maximal Ambulation Distance (feet): 20-50 Total Ambulation Distance (feet): 180 Ambulation Assistance: Minimal assist Distance limited by?: Patient's ability Pattern: Alternating, Right swing foot doesn't pass stance foot, Left swing foot doesn't pa ss stance foot, Left dec toe clearance, Right dec toe clearance Assistive Device: Walker front wheeled Wheelchair Mobility Maximal Wheelchair Distance (feet): 20-50 Total Wheelchair Distance (feet): 180 Wheelchair: Supervision, Verbal instruction Distance limited by?: Patient's ability Wheelchair Propulsion: BUE, BLE Wheelchair Type: Lightweight Wheelchair Surface: Linoleum Wheelchair Management: Brake Left, Brake Right Activity Tolerance: Patient limited by fatigue Nurse Made Aware: (yes) Safety Devices in Place: (call light) The patient demonstrated no indication of pain during therapy session. Education Completed: Education Topics: [] Rationale for PT [] PT POC [] DC planning [] Precautions [] Exercises [] Bed mobility [] Transfer training with hand placement [] Gait training [] Stair training [] Use of gait belt [x] Other place pillow under misa ls when in bed to stretch HS Completed with: [] Patient [] Spouse [] Significant other [] Family [] Ca regiver [] Other Completed by: [x] Verbal education [] Demonstration [] Handout [] Other: Response to Education: [x] Stated Understanding [] Reinforcement necessary [] Returned demonstration [] Demonstrated understanding [] No evidence of learning [] Refused onver kelin Transaction, Provider Unknown - 11/18/2017 1:45 PM PDT Therapy Progress Note by SARAH NewellS at 11/18/17 1345 Author: JUAN CARLOS Newell Service: (none) Author Type: Speech Therapist Filed: 11/18/17 1447 Date of Service: 11/18/17 1345 Status: Attested Hooking Machine Operator: SARAH NewellS (Speech Therapist) Cosigner: MS CHAYITO AlvarezS LP at 11/18/17 1543 Attestation signed by MS TREY Alvarez at 11/18/17 9477 Student therapist educationally participated in therapy session under the supervision of brent vazquez licensed therapist. This note was created by the student therapist and co-signed by the [facility] therapist. Information in this note may have been obtained from flowsheet charting. T his note is co-signed at the treatment plan/progress note level. The patient approved of brent vazquez student's role in care. 11/18/17 1345 HOSPITAL COOK Last Visit HOSPITAL COOK Received On 11/18/17 Requires HOSPITAL COOK Follow Up Yes General Session type Treatment Additional Pertinent History Session targeted memory of OT vocabulary (sock aid and powerhouse mechanic helper ) as well as the initiation of the JENNY to evaluate patient's ability to tell the time and r ead a calendar Family/Caregiver Present No Auditory Comprehension Hearing X Hearing Comment Pt able to ask for repetition when he didn't hear clearly or correctly. Bet ter performance in session with door closed. Expression Primary Mode of Expression Verbal Cognition Problem Solving Comments Able to ask for help about adding a phone number into his Contacts that is someone he recognizes that should be accessible for later. Organization Comments Patient with good spelling of vocabulary he read and heard auditorily , able to dictate to therapist. Memory Impaired Activity Tolerance Activity Tolerance Patient tolerated treatment well Plan of Care Treatment Plan Cognitive evaluation/treatment Treatment Frequency 4-6 x/week Memory/Recall Goals Windows Server Engineer Goals Increased recall Pt will demonstrate increased recall of information For basic ADLs;New/revised goal;With m in cues Short Term Goals Recall 3 items;Recall activities/events Pt will recall activities/events [address] session;Daily activities;With mi n cues;In 80% of trials;Goal progressing Pt will recall 3 items after a delay After 10 min delay;With min cues;In 80% of trials;Goa l progressing General Goals Pt will complete formal assessment Goal progressing ADULT STANDARDIZED TESTS Assessment of Language-Related Functional Activities Telling time # correct: 9 Telling time % correct: 90 Telling time IFR: 1 Using a calendar # correct: 9 Using a calendar % correct: 90 Using a calendar IFR: 1 Education Completed Education Topics: [x] Cognition: Educate on speech-language pathology role, sessions activities, results, saf ety precautions, plan of care, and homework activities [] Speech: Educate on speech-language pathology role, sessions activities, results, plan of care, and homework activities. [] Language: Educate on speech-language pathology role, sessions activities, results, plan of care, and homework activities. Completed with: [x] Patient [] Spouse [] Significant other [] Family [] C aregiver [] Other Completed by: [x] Verbal education [] Demonstration [] Handout [] Other: Response to Education: [x] Stated Understanding [] Reinforcement necessary [] Return ed demonstration [x] Demonstrated understanding [] No evidence of learning [] Refused Savita Sandoval, HOSPITAL COOK-S 11/18/2017 Marianne Nur OTR/Gaby - 11/18/2017 12:45 PM PDTFormatting of this note might be different from t he original. Therapy Progress Note by GURWINDER Rogers at 11/18/17 8087 Author: GURWINDER Rogers Service: (none) Author Type: Occupational Therapist Filed: 11/18/17 6308 Date of Service: 11/18/17 1248 Status: Signed Hooking Machine Operator: GURWINDER Rogers (Occupational Therapist) OCCUPATIONAL THERAPY TREATMENT NOTE OT Received On: 11/18/17 Reason for Treatment: Deconditioning Requires OT Follow Up: Yes Assistance Required: 1 person Workforce Planning Analyst Needed: No Family/Caregiver Present: No Recommendation: (cont IPR) Equipment Recommended: Faculty Neuropsychologist, Sock aid, Leg liftner Requires OT Follow Up: Yes Recommendation Comments Provided with handout on energy conservation. Reviewed with pt. Plan Treatment Interventions: (Per OT POC) Progress: Progressing toward goals Requires OT Follow Up: Yes Focus for next session: ADLs, AE, standing balance Follow up OT only? [] Yes [x] No Precautions Spinal Precautions: TLSO on when upright Other Precautions: fall risk, SpO2>/= 88%, pre medicate for pain Summary Pt seated in w/c upon arrival and agreeable to session with focus on standing balance and A DLs. Pt propelled self to family room. Pt at end of session left set up in bed, RN aware of pain during session and present to administer pain medication. Needs in reach at end of sess ion, bed alarm on. ADL/IADL LE Dressing LE Dressing Adaptive Equipment: Faculty Neuropsychologist, Sock aide LE Dressing Where Assessed: Wheelchair LE Dressing Comments: Trial of powerhouse mechanic helper and sock aid for LE dressing. Pt completed donning a nd doffing both socks with AE. Additional breaks required to allow time of pain management. Functional Standing Tolerance Time: around 3 minutes total Activity: standing for table top task Comments: Pt com pelted standing for 3 x around 1 min 10 seconds. He required min A to stea d as he had backwards lean. He completed word search while standing. Breaks frequently for kartik otto RN aware. FUNCTIONAL MOBILITY Additional Activities Additional Activities Comments: Provided with handout on energy conservation. Reviewed with pt. Safety Devices in Place: Yes Type of Devices: Call lite in place FIM Grooming Which grooming tasks completed during this session?: Wash/rinse/dry hands Patient completed % of overall grooming tasks: 100 Percent Grooming Final Score: Minimal Assistance Toileting Is this a continent episode?: Yes-continue scoring Patient completed % of overall toileting task: 66.67 Percent Toileting Final Score: Moderate Assistance Bladder Management Bladder Management: Level of Assistance: Total Assistance Bowel Management Transfer Bed/Chair Wheelchair Transfers: Bed, Chair, Wheelchair Final Score: Moderate Assistance Toilet Transfer Transfers: Toilet Final Score: Moderate Assistance Comprehension Comprehension Final Score: 6 - Modified independence Expression Expression Final Score : Modified independence Social Interaction Social Interaction Final Score: Modified Bryant Problem Solving Problem Solving Final Score: Minimal Assistance Memory Memory Final Score: Supervision/Set-up Barriers to d/c at this time include: [] Home environment [] Family support [x] Equipment needs- see recommendations [] Cognitive deficits impacting functional independence [x] Physical deficits impacting functional independence [x] Self-care deficits impacting functional independence [] Other Pain The patient reported pain rated at a 8-9/10. RN was notified and present to administer medi cation. Other measures provided to relieve pts pain included: reposition Education Completed: Education Topics: ADls, AE, energy conservation (handout provided) Barnett Points: Balance activity with rest breaks Plan ahead for your day and/or week to know what you need to do Set your priorities (doctor appointments, grocery shopping, family time, etc.) Pace your activities (never woodard through an activity) Learn your activity tolerance (how long you can perform an activity before needing a rest break) Completed with: [x] Patient [] Spouse [] Significant other [] Family [] C aregiver [] Other Completed by :[x] Verbal education [] Demonstration [] Handout [] Other: Response to Education: [x] Stated Understanding [] Reinforcement necessary [x] Returned demonstration [x] Demonstrated understanding [] No evidence of learning [] Refused Marianne Nur OTR/L - 11/18/2017 11:30 AM PDTFormatting of this note might be different from the arin delgadillo Therapy Progress Note by GURWINDER Rogers at 11/18/17 2151 Author: GURWINDER Rogers Service: (none) Author Type: Occupational Therapist Filed: 11/18/17 1527 Date of Service: 11/18/171129 Status: Signed Hooking Machine Operator: UGRWINDER Rogers (Occupational Therapist) 11/18/17 5346 OT Last Visit OT Received On 06/05/18 Reason for Treatment Deconditioning Requires OT Follow Up Yes Assistance Required 1 person Workforce Planning Analyst Needed No Family/Caregiver Present No Precautions Spinal Precautions TLSO on when upright Other Precautions fall risk, SpO2>/= 88%, pre medicate for pain Other Comments Comments Pt supine in bed upon arrival and easily awoken. Agreeable to session this AM. Foc us on ADLs and education for session. At end of session pt left seated in w/c, tab alarm on. Additional Activities Additional Activities Comments Present with verbal brief education regarding energy conserv ation techniques. Plan to provide with handout and complete further education in PM session. Activity Tolerance Activity Tolerance Patient tolerated treatment well Safety Devices Safety Devices in Place Yes Type of Devices Call lite in place Plan Treatment Interventions (Per OT POC) Progress Progressing toward goals Recommendation Recommendation (cont IPR) Equipment Recommended Faculty Neuropsychologist;Sock aid;Leg combining machine operator 3 11/18/17 1130 Grooming Which grooming tasks completed during this session? Wash/rinse/dry hands Number of tasks completed 1 Which grooming task(s) did the patient complete WITHOUT ASSIST? Wash/rinse/dry face Number of tasks completed w/o assist 1 Patient completed % of overall grooming tasks 100 Percent 5 - Patient completes 100% of task and requires helper FOR? supervision 4 - Patient completes 75-100% of task Patient requires steadying assist Grooming impacted by Pain;Endurance;Safety concerns;Precautions Where grooming completed Standing at sink Grooming Final Score 4 Toileting Is this a continent episode? Yes-continue scoring Which toileting tasks were completed during this session? Adjust clothing prior;Perineal Ca re;Adjust clothing after Number of tasks completed 3 Which toileting task(s) did the patient complete WITHOUT ASSIST? Adjust clothing prior;Barb emmett care Number of tasks completed w/o assist 2 Patient completed % of overall toileting task 66.67 Percent 3 - Patient completes 50-74% of task Patient completes 50-74% of task Toileting impacted by Endurance;Pain;Precautions;Safety concerns Where toileting completed Bathroom in room Toileting Final Score 3 Bladder Management Did patient have bladder acc during this shift? No 5 - Set-up Bladder Management Requirements Diaper 1 - Total Assistance for Bladder Management Required [place] changes diaper/absorbent pad Bladder Management: Level of Assistance 1 Transfers: Bed, Chair, Wheelchair 3 - Patient requires moderate assist DUE TO? lifting assist to arise OR lower Bed/chair/wheelchair transfers impacted by Safety concerns;Precautions;Endurance;Pain Where transfers completed Wheelchair;Sitting at bedside Transfers: Bed, Chair, Wheelchair Final Score 3 Transfers: Toilet 3 - Patient requires moderate assist DUE TO? lifting assist to arise OR lower Toileting transfer impacted by Pain;Endurance;Precautions;Safety concerns Where toileting transfer completed Bedside commode Transfers: Toilet Final Score 3 RN notified of pt pain complaint. Education Completed Education Topics: ADLs, precautions, brief overview of energy conservation techniques. Completed with: [x] Patient [] Spouse [] Significant other [] Family [ ] Caregiver [] Other Completed by [x] Verbal education [x] Demonstration [x] Handout [] Othe r: Response to Education: [x] Stated Understanding [] Reinforcement necessary [] Ret urned demonstration [x] Demonstrated understanding [] No evidence of learning [] Refused Focus for next session: ADLs, endurance, functional t/f Follow up OT only? [] Yes [x] No Barriers to d/c at this time include: [x] Home environment- lives alone, states he may be able to stay with family upon d/c [] Family support [x] Equipment needs- see recommendations [] Cognitive deficits impacting functional independence [x] Physical deficits impacting functional independence [x] Self-care deficits impacting functional independence [] Other onversion Trans action, Provider Unknown - 11/18/2017 11:04 AM PDT Case Management by RONNELL Rangel at 11/18/17 1104 Author: RONNELL Rangel Service: (none) Author Type: Government Property Inspector Filed: 11/18/17 1124 Date of Service: 11/18/17 110 Status: Signed Hooking Machine Operator: RONNELL Rangel (Government Property Inspector) 11/18/17 1000 Discharge Planning Evaluation Admitting Diagnosis Acute CHF Readmission No Living Arrangements Alone Support Systems Children Type of Residence Private residence House type House-1 story Steps to enter 1 Bathrooms on 1st Floor 1-Full Independent with ADL's No-comment (Pt needing more help) Independent with Mobility No-comment (Used a cane for walking) Home Care Services No Caregiver after Discharge Yes Caregiver Name Blayne Relationship to Patient son Caregiver Name Dora Relationship to Patient DIL Phone number [phone] Mental Status Oriented Prior functional status independent Power of Decatizer No Resources Financial concerns No Transportation issues No Patient/Family concerns No Prescription Plan Yes Name of Pharmacy [facility] in [place], Mail order Met with patient and completed initial assessment and discussed discharge planning, Pt is a 87 y.o., male. Pt was living alone prior to admit. He said he was struggling with taking care of his own needs, therefore the dcp is for patient to move in with his son Blayne and JOHNNY John. 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 Pt was driving pr ior to admit. He already has a disabled parking permit. Pt denied depression or anxiety. Patient's PCP is: Eze Rice Patient's insurance: Medicare/[facility] Coverage concerns: No Medication coverage/concerns: No Rx Bedside Delivery: TBD Community resources utilized / needed: TBD Assistance in transportation: Son/DIL Identification of any specific education / training: Family training Barriers to Discharge / Alternative housing needed: Yes, dcp is to move in with son and DIL Anticipated DCP: Home with son and DIL. HH vs OP Therapy DASHAWN LEGGETT onver kelin Sun, Provider Unknown - 11/18/2017 9:00 AM PDT Therapy Progress Note by Josy Kwok PT at 11/18/17 09 Author: Josy Kwok PT Service: (none) Author Type: Physical Therapist Filed: 11/18/17 0959 Date of Service: 11/18/17899 Status: Signed Hooking Machine Operator: Jsoy Kwok PT (Physical Therapist) PHYSICAL THERAPY RE-assessment PT Received On: 11/18/17 Reason for Treatment: Other (comment) (s/p fall with compression fx, SOB with CHF exacerbat ionf) Requires PT Follow Up: Yes Follow up PT Only?: No Focus for Next Treatment: Transfer Technique PT Eval/Reassessment Date: 05/15/18 Assistance Required: 1 person Recommendations: IRF Equipment Recommended: (TBD: likely 4WW or FWW) Barriers to Discharge: Physical Deficits Impacting Functional [place], Self-care Defic its Impacting Functional [place], Equipment Needs (see comment) Plan Treatment/Interventions: Continue per Primary PT POC Progress: Slow progress, decreased activity tolerance PT Frequency: 5-7x/wk, Once per day, Twice a day Care Duration (# of days): 7 # of days Summary Comments: Pt supine in bed when PT arrived, agreeable to therapy. Pt found to have soiled h is brief in bed (RN marisol present). Pt reports it has been soiled for 2-3 hours. Ed pt on imp ortance of notifiying nursing when he has soiled his brief as sitting in urine leads to skin break down. Pt stated his understanding. Pt much more SOB this session, required more frequ ent rest breaks and cueing for breathing technique. Pt requested to transfer onto toilet, ed pt on w/c set up for toilet transfer - pt completed 4 transfers on and off the toilet, requ ired VCs 100% of the time for hand placement. Due to increased SOB and unsteadiness walking held, and focused on w/c mobility. Pt required rest breaks approximately every 20-25 ft. Fin ished session sititng up in w/c, all needs met. Precautions Spinal Precautions: TLSO on when upright Other Precautions: fall risk, SpO2>/= 88%, pre medicate for pain Cognition Overall Cognitive Status: Within Functional Limits Orientation Level: Oriented FUNCTIONAL MOBILITY Bed Mobility Rolling: Modified independent Sidelying to Sit: Minimal assist (1 LE OOB) Transfers Sit to/from Stand: Minimal assist (steadying/contact guard) Stand Pivot Transfers: Minimal assist (steadying/contact guard), Verbal instruction Ambulation Weight Bearing Status: WBAT RLE, WBAT LLE Maximal Ambulation Distance (feet): 20ft Total Ambulation Distance (feet): 20ft Ambulation Assistance: Minimal assist Distance limited by?: Patient's ability, Therapist/staff discretion Pattern: Alternating, Decreased garland, Right swing foot doesn't pass stance foot, Left sw ing foot doesn't pass stance foot, Right dec toe clearance, Left dec toe clearance Assistive Device: Walker front wheeled Wheelchair Mobility Maximal Wheelchair Distance (feet): 20-25ft Total Wheelchair Distance (feet): 150ft Wheelchair: Supervision, Verbal instruction Distance limited by?: Patient's ability Wheelchair Propulsion: BUE, BLE Wheelchair Type: Lightweight Wheelchair Surface: Linoleum Wheelchair Management: Brake Right, Brake Left Activity Tolerance: Patient limited by fatigue, Patient limited by shortness of breath (SOB ) Nurse Made Aware: yes Safety Devices in Place: (call light) The patient reported moderate pain. RN was notified - meds provided at start of session. Education Completed: Education Topics: [] Rationale for PT [] PT POC [] DC planning [] Precautions [] Exercises [] Bed mobility [x] Transfer training with hand placement [] Gait training [] Stair training [] Use of gait belt [x] Other Completed with: [x] Patient [] Spouse [] Significant other [] Family [] C aregiver [] Other Completed by: [x] Verbal education [] Demonstration [] Handout [] Other: Response to Education: [x] Stated Understanding [] Reinforcement necessary [] Returned demonstration [] Demonstrated understanding [] No evidence of learning [] Refused Physical Therapy Goals PT Goals Goal Formulation: With patient Pt Will Go Supine To Sit: With modified independence, Not met Pt Will Go Sit To Supine: With modified independence, Not met Pt Will Logroll: With modified independence, Met Pt Will Transfer Sit to Stand: With modified independence, Not met Pt Will Transfer Bed/Chair: With modified independence, Not met Pt Will Ambulate: 50-100 feet, Partly met Ambulate Level Assist: With modified independence, Not met Ambulate with Assistive Device: Least restricitve device, Partly met Pt Will Go Up / Down Stairs: 1-2 stairs, Not met Stairs Level of Assist: With modified independence, Not met Wing Micah Lopes MD - 11/18/2017 7:12 AM PDTFormatting of this note might be different from the orig inal. Progress Notes by Wing Micah Jain MD at 11/18/17711 Author: Wing Micah Jain MD Service: (none) Author Type: Physician Filed: 11/18/17712 Date of Service: 11/18/17711 Status: Signed Hooking Machine Operator: Wing Micah Jain MD (Physician) [facility] Service: Physical Medicine & Rehab Progress Note Hospital Day: LOS: 4 days SUBJECTIVE Patient Summary: The patient INR at 1.2, continue with Coumadin 5 mg daily. He has a pparent UTI by U/A and culture. Will start Levaquin. focused on standing balance, requiring verbal cues to keep knees straight in upright posit ion and not crouch forward. Pt could benefit from further static balance training incorporat ing dynamic standing balance with increased time ROS: No current complaints of neurological problems such as new weakness, numbness, tinglin g, visual changes. No complaints of CVS, pulmonary, GI, , integument, probs. No complaints of SOB,CP,NAUSEA, swallowing problems or pain problems. No complaints of sleeping difficult y. No complaints of anxiety or depression. Scheduled Medications aspirin 81 mg Oral Daily atorvastatin 20 mg Oral Nightly calcitonin (salmon) 1 spray Alternating Nares Daily co-enzyme Q-10 200 mg Oral Daily digoxin 0.125 mg Oral Daily diltiazem 240 mg Oral Daily doxazosin 2 mg Oral Nightly furosemide 40 mg Oral Daily levofloxacin 500 mg Oral QDQ Lidocaine 1 patch Transdermal Daily methocarbamol 1,500 mg Oral 4x Daily multivitamin with minerals 1 tablet Oral Daily senna 2 tablet Oral Nightly spironolactone 12.5 mg Oral Daily umeclidinium-vilanterol 1 puff Inhalation Daily warfarin 5 mg Oral Daily PRN Medications acetaminophen OR acetaminophen, ipratropium-albuterol, ondansetron OR ondansetron, oxyCODONE-acetaminophen, oxyCODONE-acetaminophen, polyethylene glycol, zolpidem OBJECTIVE Vital Signs: BP 120/81 (BP Location: Left upper arm) | Pulse 107 | Temp 98.7 F (37.1 C) (Oral) | Resp 20 | Ht 1.753 m (5' 9") | Wt 71.1 kg (156 lb 11.2 oz) | SpO2 92% | BMI 23.14 kg/m General Appearance: Alert, cooperative, no distress. Head: symmetrical Eyes: reactive Lungs: clear Chest wall: nontender Heart: regular Abdomen: soft Extremities: Negative edema Pulses: regular Skin: intact DATA Results for orders placed or performed during the hospital encounter of 11/14/17 (from the past 24 hour(s)) Protime-INR Collection Time: 11/18/17 5:36 AM Result Value Ref Range INR 1.2 ASSESSMENT & PLAN Patient Active Hospital Problem List: Compression fracture of lumbar vertebra (HCC) (11/09/2012) Assessment: improving Plan: cont with pain management Lumbar degenerative disc disease (11/09/2012) Assessment: stable Plan: pain management T12 compression fracture (HCC) (09/19/2017) Assessment: stable Plan: pain management Chronic atrial fibrillation (HCC) (09/19/2017) Assessment: stable Plan: cont with Digoxin COPD, 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 2) Mobility ADL/dysfunction - continue OT for ADL's, IADL's, functional transfers, equipmen t evaluation, family training. 3) Mobility dysfunction - continue 24 hr. Rehab nursing for bowel, bladder skin pain sleep. Wing Demetra Jain MD 11/18/20177:12 AM onversion Transaction, Provider Unknown - 11/17/2017 2:53 PM PDTFormatting of this note might be different from t robert original. Therapy Progress Note by Josy Kwok PT at 11/17/17 3305 Author: Josy Kwok PT Service: (none) Author Type: Physical Therapist Filed: 11/17/17 1542 Date of Service: 11/17/17 6173 Status: Signed Hooking Machine Operator: Josy Kwok PT (Physical Therapist) PHYSICAL THERAPY TREATMENT NOTE PT Received On: 11/17/17 Reason for Treatment: Other (comment) (s/p fall with compression fx, SOB with CHF exacerbat ionf)) Requires PT Follow Up: Yes Follow up PT Only?: No Focus for Next Treatment: Transfer Technique Assistance Required: 1 person Recommendations: IRF Plan Treatment/Interventions: Continue per Primary PT POC Progress: Progressing toward goals Summary Comments: pt supine in bed with HOB 30 degrees when Pt arrived, agreeable to therapy. Repor ts feeling better with no nausea and mild pain. Pt requested to use urinal at start of sessi on, had an accident. Therapist assisted with changing clothes, RN notified. Session focused on standing balance, requiring verbal cues to keep knees straight in upright position and no t crouch forward. Pt could benefit from further static balance training incorporating dynami c standing balance with increased time. Finished session sitting in w/c in family room with friend. All needs met. Precautions Spinal Precautions: TLSO on when upright Other Precautions: fall risk, SpO2>/= 88%, pre medicate for pain Cognition Overall Cognitive Status: Within Functional Limits Orientation Level: Oriented Oriented: x 4 FUNCTIONAL MOBILITY Bed Mobility Rolling: Modified independent Sidelying to Sit: Standby assist - Transfers Sit to/from Stand: Standby assist, Minimal assist (steadying/contact guard) Ambulation Stairs Wheelchair Mobility Maximal Wheelchair Distance (feet): 75 Total Wheelchair Distance (feet): 75 Wheelchair: Supervision, Verbal instruction (brake management) Distance limited by?: Therapist/staff discretion Wheelchair Propulsion: BUE Wheelchair Type: Lightweight Wheelchair Surface: Linoleum Wheelchair Management: Brake Right, Brake Left BALANCE Static Standing Balance Static Standing-Balance Support: Left upper extremity support Static Standing-Level of Assistance: Standby assist Static Standing-Comment/Duration: 10+4mins THERAPEUTIC EXERCISE Activity Tolerance: Patient limited by fatigue Safety Devices in Place: (call costa, family room) The patient reported mild pain, did not request pain meds. RN was notified Education Completed: Education Topics: [] Rationale for PT [] PT POC [] DC planning [] Precautions [] Exercises [] Bed mobility [] Transfer training with hand placement [] Gait training [] Stair training [] Use of gait belt [x] Other standing tolerance for ADLs Completed with: [x] Patient [] Spouse [] Significant other [] Family [] C aregiver [] Other Completed by: [x] Verbal education [] Demonstration [] Handout [] Other: Response to Education: [] Stated Understanding [] Reinforcement necessary [] Returned demonstration [x] Demonstrated understanding [] No evidence of learning [] Refused onver kelin Transaction, Provider Unknown - 11/17/2017 1:30 PM PDT Therapy Progress Note by EMMA Jauregui at 11/17/17 5780 Author: EMMA Jauregui Service: (none) Author Type: Service Delivery Analyst [email or web address] Filed: 11/17/17 6348 Date of Service: 11/17/171329 Status: Signed Hooking Machine Operator: EMMA Jauregui (Automatic Wheel Line Operator) OCCUPATIONAL THERAPY TREATMENT NOTE OT Received On: 11/17/17 Reason for Treatment: Deconditioning Requires OT Follow Up: Yes Assistance Required: 1 person Workforce Planning Analyst Needed: No Family/Caregiver Present: No Recommendation: (cont IPR) Equipment Recommended: Faculty Neuropsychologist, Sock aid, Leg liftner Requires OT Follow Up: Yes Recommendation Comments Plan Treatment Interventions: Other (comment) (per OT POC) Progress: Progressing toward goals Requires OT Follow Up: Yes Focus for next session: ADL's; bed mobility/transfers Follow up OT only? [] Yes [x] No Precautions Spinal Precautions: TLSO on when upright Other Precautions: fall risk, Spo2>/=88%, pre medicate for pain Summary Pt supine with HOB slightly elevated, asleep when ELISEO arrived. Pt was slighlty confused whe n waking up, thinking it was morning and he has slept all through the night. Pt agreed to pa rticipate in OT at this time. Pt asked for urinal and had difficulty completing the task, re quiring Mod A. The focus of todays session was to perform ADLS with UB/LB dressing, bed mobi lity (with log roll) and STS using FWW and SBA. Safety Devices in Place: Yes Type of Devices: Call lite in place Upper Body Dressing Clothing Items Worn This Session: addictions recovery specialist shirt Upper Body Dressing Final Score: Supervision/Set-up Lower Body Dressing Clothing Items Worn This Session: Underwear, Pants % Dressing Tasks Completed : 50 % Lower Body Dressing Final Score: Moderate Assistance Bladder Management Bladder Management: Level of Assistance: Maximal Assistance Barriers to d/c at this time include: [] Home environment [] Family support [x] Equipment needs [] Cognitive deficits impacting functional independence [] Physical deficits impacting functional independence [] Self-care deficits impacting functional independence [] Other Pain The patient reported pain rated at a 7/10. RN was notified. Education Completed: Education Topics: Bed mobility (log roll), UB/LB dressing, STS with use of FWW Completed with: [x] Patient [] Spouse [] Significant other [] Family [] C aregiver [] Other Completed by :[x] Verbal education [x] Demonstration [] Handout [] Other: Response to Education: [] Stated Understanding [x] Reinforcement necessary [x] Returned demonstration [] Demonstrated understanding [] No evidence of learning [] Refused Reviewed plan of care and goals set by OTR/L. onver kelin Transaction, Provider Unknown - 11/17/2017 11:00 AM PDT Therapy Progress Note by Josy Kwok PT at 11/17/17 1100 Author: Josy Kwok PT Service: (none) Author Type: Physical Therapist Filed: 11/17/17 5099 Date of Service: 11/17/17 1100 Status: Signed Hooking Machine Operator: Josy Kwok PT (Physical Therapist) PHYSICAL THERAPY TREATMENT NOTE PT Received On: 11/17/17 Reason for Treatment: Other (comment) (s/p fall with compression fx, SOB with CHF exacerbat ionf) Requires PT Follow Up: Yes Follow up PT Only?: No Assistance Required: 1 person Recommendations: IRF Plan Treatment/Interventions: Continue per Primary PT POC Progress: Progressing toward goals Summary Comments: Pt sitting up in w/c when PT arrived, agreeable to therapy. Reports mild pain, al ready medicated. Session focused on bed mobility and transfer tranining. Pt progressing well with transfer training, now able to bring B LEs out of bed and trunk to upright. With cuein g and assistance to block the LEs from sliding back out his is able to lift one leg up at a time into bed. Pt mildly retropulsive upon standing. Pt unable to achieve full erect standin g due to crouched knees - likely contracted due to prolonged sitting at home. Pt would likel y benefit from HS stretching. Pt unable to tolerate multiple bouts of ambulation or standing due to nausea - RN notified and provided anti nausea meds. Pt ed on seated exercises to com plete between sessions to assist with glute and quad strength/stretch HS. Pt agreeable to co mplete these. Finished session sitting up in w/c all needs met. (Vitals: 138/60's HR 70s, S pO2 92% on 3L ) Precautions Spinal Precautions: TLSO on when upright Other Precautions: fall risk, SpO2>/= 88%, pre medicate for pain Cognition Overall Cognitive Status: Within Functional Limits Orientation Level: Oriented FUNCTIONAL MOBILITY Bed Mobility Rolling: Minimal assist Sidelying to Sit: Mod assist (BLEs OOB or trunk to upright) Sit to Sidelying: Mod assist (BLEs into bed or trunk to lower) - Transfers Sit to/from Stand: Minimal assist (steadying/contact guard), Verbal instruction, Standby as sist Bed to/from Chair: Minimal assist (steadying/contact guard), Verbal instruction Stand Pivot Transfers: Minimal assist (steadying/contact guard), Standby assist, Verbal ins truction Ambulation Weight Bearing Status: WBAT RLE, WBAT LLE Maximal Ambulation Distance (feet): 50 Total Ambulation Distance (feet): 50 Ambulation Assistance: Minimal assist Distance limited by?: Patient's ability Pattern: Alternating, Decreased garland, Right swing foot doesn't pass stance foot, Left sw ing foot doesn't pass stance foot, Forward flexed Assistive Device: Walker front wheeled Activity Tolerance: Treatment limited secondary to medical complications (nausea) Nurse Made Aware: yes Safety Devices in Place: (call light) The patient reported pain rated at a 8/10. RN was notified Education Completed: Education Topics: [] Rationale for PT [] PT POC [] DC planning [] Precautions [] Exercises [] Bed mobility [x] Transfer training with hand placement [x] Gait training [] Stair training [] Use of gait belt [] Other Completed with: [x] Patient [] Spouse [] Significant other [] Family [] C aregiver [] Other Completed by: [x] Verbal education [x] Demonstration [] Handout [] Other: Response to Education: [] Stated Understanding [x] Reinforcement necessary [] Returned demonstration [] Demonstrated understanding [] No evidence of learning [] Refused Wing Micah Lopes MD - 11/17/2017 10:17 AM PDTFormatting of this note might be different from the orig inal. Progress Notes by Wing Micah Jain MD at 11/17/17 101 Author: Wing Micah Jain MD Service: (none) Author Type: Physician Filed: 11/17/17 1020 Date of Service: 11/17/171016 Status: Addendum Hooking Machine Operator: Wing Micah Jain MD (Physician) Related Notes: Original Note by Wing Micah Jain MD (Physician) filed at 11/17/17 101 [facility] Service: Physical Medicine & Rehab Progress Note Hospital Day: LOS: 3 days SUBJECTIVE Patient Summary: The patient INR is down to 1.3, will restart Coumadin at 5 mg and re check Protime in AM. Chávez out this morning. Spoke with son and family. Informed of team conference on Fri. ROS: No current complaints of neurological problems such as new weakness, numbness, tinglin g, visual changes. No complaints of CVS, pulmonary, GI, , integument, probs. No complaints of SOB,CP,NAUSEA, swallowing problems or pain problems. No complaints of sleeping difficult y. No complaints of anxiety or depression. Scheduled Medications aspirin 81 mg Oral Daily atorvastatin 20 mg Oral Nightly calcitonin (salmon) 1 spray Alternating Nares Daily co-enzyme Q-10 200 mg Oral Daily digoxin 0.125 mg Oral Daily diltiazem 240 mg Oral Daily doxazosin 2 mg Oral Nightly furosemide 40 mg Oral Daily Lidocaine 1 patch Transdermal Daily methocarbamol 1,500 mg Oral 4x Daily multivitamin with minerals 1 tablet Oral Daily senna 2 tablet Oral Nightly spironolactone 12.5 mg Oral Daily umeclidinium-vilanterol 1 puff Inhalation Daily warfarin 5 mg Oral Daily PRN Medications acetaminophen OR acetaminophen, ipratropium-albuterol, ondansetron OR ondansetron, oxyCODONE-acetaminophen, oxyCODONE-acetaminophen, polyethylene glycol, zolpidem OBJECTIVE Vital Signs: BP 135/84 | Pulse 102 | Temp 98.2 F (36.8 C) (Oral) | Resp 18 | Ht 1.753 m (5' 9") | Wt 71.5 kg (157 lb 11.2 oz) | SpO2 97% | BMI 23.29 kg/m General Appearance: Alert, cooperative, no distress. Head: symmetrical Eyes: reactive Lungs: clear Chest wall: nontender Heart: regular Abdomen: soft Extremities: Negative edema Pulses: regular Skin: intact DATA Results for orders placed or performed during the hospital encounter of 11/14/17 (from the past 24 hour(s)) Protime-INR Collection Time: 11/17/17 6:38 AM Result Value Ref Range INR 1.3 ASSESSMENT & PLAN Patient Active Hospital Problem List: Compression fracture of lumbar vertebra (HCC) (11/09/2012) Assessment: improving Plan: cont with pain management Lumbar degenerative disc disease (11/09/2012) Assessment: stable Plan: pain management T12 compression fracture (HCC) (09/19/2017) Assessment: stable Plan: pain management Chronic atrial fibrillation ([facility]) (09/19/2017) Assessment: stable Plan: cont with Digoxin COPD, 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 2) Mobility ADL/dysfunction - continue OT for ADL's, IADL's, functional transfers, equipmen t evaluation, family training. 3) Mobility dysfunction - continue 24 hr. Rehab nursing for bowel, bladder skin pain sleep. Wing Demetra Jain MD 11/17/201710:17 AM onversion Transaction, Provider Unknown - 11/17/2017 9:45 AM PDTFormatting of this note might be different from t robert original. Therapy Progress Note by GURWINDER Cummins at 11/17/17 9281 Author: GURWINDER Cummins Service: (none) Author Type: Occupational Therapist Filed: 11/17/17 1123 Date of Service: 11/17/1715 Status: Signed Hooking Machine Operator: GURWINDER Cummins (Occupational Therapist) OCCUPATIONAL THERAPY TREATMENT NOTE OT Received On: 11/17/17 Reason for Treatment: Deconditioning Requires OT Follow Up: Yes Assistance Required: 1 person Workforce Planning Analyst Needed: No Family/Caregiver Present: No Recommendation: (cont IPR ) Requires OT Follow Up: Yes Plan Treatment Interventions: Other (comment) (per OT POC ) Progress: Progressing toward goals Requires OT Follow Up: Yes Focus for next session: Safe functional txfers, ADL modifications for increased independenc e, AE/DME training and recommendations Follow up OT only? [] Yes [x] No Precautions Spinal Precautions: TLSO on when upright Other Precautions: fall risk, SpO2>/= 88%, pre medicate for pain Summary Pt is seen for ADL retraining with focus on spinal precautions for pain reduction and incre ased independence. Pt is supine upon entry, alert and agreeable to OT session. provided verb al education, demonstration and time to trial technique for LB dressing from w/c with reache r/ sock aide use. pt requires close supervision and VC for more than half the task for techn iques and spinal precautions. Assist requires for TLSO due to increased pain and poor sittin g tolerance at EOB. ADL/IADL Grooming Grooming Level of Assistance: Setup, Distant supervision Grooming Where Assessed: Sitting sinkside, Wheelchair UE Dressing UE Dressing Level of Assistance: Moderate assistance UE Dressing Where Assessed: Edge of bed LE Dressing LE Dressing: Yes LE Dressing Adaptive Equipment: Faculty Neuropsychologist, Sock aide Pants Level of Assistance: Moderate assistance, Maximum verbal cues Sock Level of Assistance: Maximum verbal cues, Minimum assistance Adult Briefs Level of Assistance: Moderate assistance, Maximum verbal cues LE Dressing Where Assessed: Wheelchair FUNCTIONAL MOBILITY Bed Mobility Rolling: Minimal assist, Verbal instruction Sidelying to Sit: Mod assist (BLEs OOB or trunk to upright), Verbal instruction Scooting : Minimal assist, Verbal instruction - Transfers Sit to/from Stand: Minimal assist (steadying/contact guard), Verbal instruction Stand Pivot Transfers: Minimal assist (steadying/contact guard), Verbal instruction Ambulation Ambulation Assistance: Minimal assist, Verbal instruction Assistive Device: Walker front wheeled Safety Devices in Place: Yes Type of Devices: Call lite in place, Chair alarm, Wheelchair FIM Grooming Which grooming tasks completed during this session?: [place] hair, Wash/rinse/dry hands, Wash /rinse/dry face Patient completed % of overall grooming tasks: 100 Percent Grooming Final Score: Supervision/Set-up Upper Body Dressing Clothing Items Worn This Session: addictions recovery specialist shirt Upper Body Dressing Final Score: Supervision/Set-up Lower Body Dressing Clothing Items Worn This Session: Pants, Socks % Dressing Tasks Completed : 20 % Lower Body Dressing Final Score: Total Assistance Transfer Bed/Chair Wheelchair Transfers: Bed, Chair, Wheelchair Final Score: Minimal Assistance Comprehension Comprehension Final Score: 6 - Modified independence Expression Expression Final Score : Modified independence Social Interaction Social Interaction Final Score: Complete Bryant Problem Solving Problem Solving Final Score: Modified Bryant Memory Memory Final Score: Modified Bryant Barriers to d/c at this time include: [] Home environment [x] Family support [x] Equipment needs [] Cognitive deficits impacting functional independence [x] Physical deficits impacting functional independence [x] Self-care deficits impacting functional independence [] Other Pain The patient reported pain rated at a 8/10. RN was notified/ aware and addressing Other radha ures provided to relieve pts pain included:, assisted pt to position of comfort Education Completed: Education Topics: ADL modifications, fall prevention, AE/DME recommendations, precautions ' Completed with: [x] Patient [] Spouse [] Significant other [] Family [] C aregiver [] Other Completed by :[x] Verbal education [x] Demonstration [] Handout [] Other: Response to Education: [] Stated Understanding [x] Reinforcement necessary [] Returned demonstration [] Demonstrated understanding [] No evidence of learning [] Refused Wing Micah Lopes MD - 11/16/2017 8:54 PM PDTFormatting of this note might be different from the orig inal. Progress Notes by Wing Micah Jain MD at 11/16/172053 Author: Wing Micah Jain MD Service: (none) Author Type: Physician Filed: 11/16/172055 Date of Service: 11/16/172053 Status: Signed Hooking Machine Operator: Wing Micah Jain MD (Physician) [facility] Service: Physical Medicine & Rehab Progress Note Hospital Day: LOS: 2 days SUBJECTIVE Patient Summary: The patient resting well in bed. No complaints of pain. He is spea destiny well. Pt req A threading B UE and tightening lumbar straps of TLSO. Bed height raised to A pt to standing, ambulation pt moans in pain, but is agreeable to continue with PT. He ambulated 50' with PT. ROS: No current complaints of neurological problems such as new weakness, numbness, tinglin g, visual changes. No complaints of CVS, pulmonary, GI, , integument, probs. No complaints of SOB,CP,NAUSEA, swallowing problems or pain problems. No complaints of sleeping difficult y. No complaints of anxiety or depression. Scheduled Medications aspirin 81 mg Oral Daily atorvastatin 20 mg Oral Nightly calcitonin (salmon) 1 spray Alternating Nares Daily co-enzyme Q-10 200 mg Oral Daily digoxin 0.125 mg Oral Daily diltiazem 240 mg Oral Daily doxazosin 2 mg Oral Nightly furosemide 40 mg Oral Daily Lidocaine 1 patch Transdermal Daily methocarbamol 1,500 mg Oral 4x Daily multivitamin with minerals 1 tablet Oral Daily senna 2 tablet Oral Nightly spironolactone 12.5 mg Oral Daily umeclidinium-vilanterol 1 puff Inhalation Daily PRN Medications acetaminophen OR acetaminophen, ipratropium-albuterol, ondansetron OR ondansetron, oxyCODONE-acetaminophen, oxyCODONE-acetaminophen, polyethylene glycol, zolpidem OBJECTIVE Vital Signs: BP 115/65 (BP Location: Right upper arm) | Pulse 82 | Temp 97.4 F (36.3 C) (Oral) | Resp 18 | Ht 1.753 m (5' 9") | Wt 71.1 kg (156 lb 11.2 oz) | SpO2 93% | BMI 23.14 kg/m General Appearance: Alert, cooperative, no distress. Head: symmetrical Eyes: reactive Lungs: clear Chest wall: nontender Heart: regular Abdomen: soft Extremities: Negative edema Pulses: regular Skin: intact DATA Results for orders placed or performed during the hospital encounter of 11/14/17 (from the past 24 hour(s)) Protime-INR Collection Time: 11/16/17 4:41 AM Result Value Ref Range INR 1.7 ASSESSMENT & PLAN Patient Active Hospital Problem List: Compression fracture of lumbar vertebra (HCC) (11/09/2012) Assessment: improving Plan: cont with pain management Lumbar degenerative disc disease (11/09/2012) Assessment: stable Plan: pain management T12 compression fracture (HCC) (09/19/2017) Assessment: stable Plan: pain management Chronic atrial fibrillation (HCC) (09/19/2017) Assessment: stable Plan: cont with Digoxin COPD, 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 2) Mobility ADL/dysfunction - continue OT for ADL's, IADL's, functional transfers, equipmen t evaluation, family training. 3) Mobility dysfunction - continue 24 hr. Rehab nursing for bowel, bladder skin pain sleep. Wing Demetra Jain MD 11/16/20178:54 PM onversion Transaction, Provider Unknown - 11/16/2017 2:14 PM PDTFormatting of this note might be different from t he original. Therapy Progress Note by Enzo Chan at 11/16/174 Author: Enzo Chan Service: (none) Author Type: Recreational Therapist Filed: 11/16/171413 Date of Service: 11/16/171413 Status: Signed Hooking Machine Operator: Enzo Chan (Recreational Therapist) 11/16/17 1409 Attendance Activity (Recreational Assessment review) Therapeutic Recreation Social Skills Initiates conversation or social interaction (very talkative) Physical Functioning Skills Increase tolerance Cognitive Function (good) Leisure Participation Active participation Lesiure Interest (tv, reading, crafts, music, computers, cooking, rope hobby) Satisfied with Leisure Interest Yes ("Really good.") Time Spent With Patient Minutes 45 Requires REC Follow Up Yes (possible [employer] project, history journaling, magic cards) onver kelin Transaction, Provider Unknown - 11/15/2017 11:51 PM PDT Nurse Progress Note by Juventino Velasco RN at 11/15/17 9542 Author: Juventino Velasco RN Service: (none) Author Type: Registered Nurse Filed: 11/15/17 5424 Date of Service: 11/15/17 324 Status: Signed Hooking Machine Operator: Juventino Velasco RN (Registered Nurse) UA culture came back positive tonight (2230) for gram positive cocci. Called Dr. Cristina alvarado he attending ([id number]) for orders but he declined to make any new changes. onver kelin Transaction, Provider Unknown - 11/15/2017 6:24 PM PDT Nurse Progress Note by Naina Angeles RN at 11/15/171823 Author: Naina Angeles RN Service: (none) Author Type: Registered Nurse Filed: 11/15/171924 Date of Service: 11/15/171823 Status: Signed Hooking Machine Operator: Naina Angeles RN (Registered Nurse) No significant events this day. Up for therapies and resting with pressure relief in betwe en. Hourly rounding completed to decrease risk for falls. Call light within reach at all ti mes when in bed/chair. Bed/chair alarm on and activated while in bed/chair. Patient eating meals without difficulty. Occupational and physical therapy plan of care incorporated in nursing plan of care to facilitate maximum rehabilitation. Medical management continues to focus on DVT prevention, fall prevention, pressure ulcer prevention, medication management, bowel management, bladder management, pain management, nutrition and hydration. Continue t o monitor. No complaints at this time. avdeep Breen PT - 11/15/2017 4:30 PM PDTFormatting of this note might be different fro m the original. Therapy Progress Note by Navdeep Chisholm PT at 11/15/17 1630 Author: Navdeep Chisholm PT Service: (none) Author Type: Physical Therapist Filed: 11/15/17 1740 Date of Service: 11/15/17 1630 Status: Signed Hooking Machine Operator: Navdeep Chisholm PT (Physical Therapist) PHYSICAL THERAPY TREATMENT NOTE PT Received On: 11/15/17 Reason for Treatment: Other (comment) (S/p fall with T-12 compression fx) Requires PT Follow Up: Yes Follow up PT Only?: No Focus for Next Treatment: Bed Mobility Technique, Transfer Technique Assistance Required: 1 person Recommendations: IRF Barriers to Discharge: Physical Deficits Impacting Functional Bryant, Self-care Defic its Impacting Functional Bryant Plan Treatment/Interventions: Continue per Primary PT POC Progress: Progressing toward goals Summary Comments: Upon arrival pt supine in bed agreeable to PT. Req verbal instructions for log ro ll to L and sidelying to sit. Pt req A threading B UE and tightening lumbar straps of TLSO. Bed height raised to A pt to standing, ambulation pt moans in pain, but is agreeable to cont inue with PT. Following 50' walk pt reporting an urgent need to have BM. Pt assisted to toil et. A req for pericare with extra time req for standing balance with B grab bars during barb care. Pt ambulating back to bed. A needed to bring B LE into bed, pt having difficutly seque ncing sit to sidelying and log roll to supine, requires follow up A. At end of session pt moss pine in bed with call light and needs in reach. Precautions Spinal Precautions: TLSO on when upright, Lumbar Other Precautions: fall risk, SpO2>/= 88%, pre medicate for pain Cognition Overall Cognitive Status: Within Functional Limits Orientation Level: Oriented Oriented: x 4 FUNCTIONAL MOBILITY Bed Mobility Rolling: Supervison, Verbal instruction Sidelying to Sit: Supervision, Verbal instruction, Visual instruction Sit to Sidelying: Mod assist (BLEs into bed or trunk to lower) Scooting : Maximal assist - Transfers Sit to/from Stand: Minimal assist (steadying/contact guard) Ambulation Maximal Ambulation Distance (feet): 60 Total Ambulation Distance (feet): 80 Ambulation Assistance: Standby assist Distance limited by?: Patient's ability Pattern: Alternating, Decreased garland, Right swing foot doesn't pass stance foot, Left sw ing foot doesn't pass stance foot, Forward flexed, Antalgic Assistive Device: Walker front wheeled Stairs Stairs Assistance: Unable to assess (Comment), Safety concerns BALANCE Balance: Yes Static Standing Balance Static Standing-Balance Support: Right upper extremity support, Left upper extremity suppor t Static Standing-Level of Assistance: Standby assist, Verbal instruction, Visual instruction /cues Static Standing-Comment/Duration: 2 x 3 min Activity Tolerance: Patient limited by pain, Patient limited by fatigue The patient reported pain rated at a 7/10. RN was notified (Naina). Other measures provided to relieve pts pain included: Repositioning and rest Education Completed: Education Topics: [x] Rationale for PT [] PT POC [] DC planning [x] Precautions [] Exercises [x] Bed mobility [x] Transfer training with hand placement [] Gait training [] Stair training [x] Use of gait belt [] Other Completed with: [x] Patient [] Spouse [] Significant other [] Family [] C aregiver [] Other Completed by: [x] Verbal education [] Demonstration [] Handout [] Other: Response to Education: [] Stated Understanding [x] Reinforcement necessary [] Returned demonstration [] Demonstrated understanding [] No evidence of learning [] Refused onversion Tr evelyn, Provider Unknown - 11/15/2017 1:58 PM PDTFormatting of this note might be differ ent from the original. Therapy Progress Note by GURWINDER Devlin at 11/15/17 3552 Author: GURWINDER Devlin Service: (none) Author Type: Occupational Therapist Filed: 11/15/17 1270 Date of Service: 11/15/17 5126 Status: Signed Hooking Machine Operator: GURWINDER Devlin (Occupational Therapist) OCCUPATIONAL THERAPY TREATMENT NOTE OT Received On: 11/15/17 Reason for Treatment: Deconditioning Requires OT Follow Up: Yes Assistance Required: 1 person Workforce Planning Analyst Needed: No Family/Caregiver Present: No Recommendation: (cont IPR) Requires OT Follow Up: Yes Plan Treatment Interventions: (cont OT POC) Requires OT Follow Up: Yes Follow up OT only? [] Yes [x] No Precautions Spinal Precautions: TLSO on when upright, Lumbar Other Precautions: fall risk; SpO2 >/=88%; pre-medicate for pain Functional Standing Tolerance Time: ~3 minutes Activity: standing for trnasfer/ LB dressing & bed bath adl at EOB Comments: increased pain when upright, limited by pain FUNCTIONAL MOBILITY Bed Mobility Rolling: Moderate assist Sidelying to Sit: Max assist (BLEs OOB & trunk to upright) Sit to Sidelying: Mod assist (BLEs into bed or trunk to lower) Scooting : Minimal assist - Transfers Sit to/from Stand: Moderate assist (to arise OR lower) Bed to/from Chair: Moderate assist (to arise OR lower) Stand Pivot Transfers: Maximal assist (to arise AND lower) Safety Devices in Place: Yes Type of Devices: RN notified, Call lite in place, Other (comment) (HOSE SUSPENDER CUTTER in room ) FIM Grooming Which grooming tasks completed during this session?: [place] hair, Wash/rinse/dry hands, Wash /rinse/dry face Patient completed % of overall grooming tasks: 100 Percent Grooming Final Score: Supervision/Set-up Bathing Which bathing tasks were completed during this session?: Leg lower right and foot, Leg lowe r left and foot, Leg upper left, Leg upper right, Buttocks, Perineal area front, Abdomen, Ch est, Arm left, Arm right Patient completed % of overall bathing task: 70 Percent Bathing Final Score: Moderate Assistance Upper Body Dressing Clothing Items Worn This Session: addictions recovery specialist shirt Upper Body Dressing Final Score: Supervision/Set-up Lower Body Dressing Clothing Items Worn This Session: Pants, Socks % Dressing Tasks Completed : 0 % Lower Body Dressing Final Score: Total Assistance Transfer Bed/Chair Wheelchair Transfers: Bed, Chair, Wheelchair Final Score: Moderate Assistance Barriers to d/c at this time include: [] Home environment [] Family support [] Equipment needs [] Cognitive deficits impacting functional independence [x] Physical deficits impacting functional independence [x] Self-care deficits impacting functional independence [] Other Pain The patient reported pain rated at a 5/10 when supine in bed. When in w/c or sitting EOB pa in increased to 8-9/10 with pt displaying physical signs of distress. RN aware, pt not able to have pain meds at this time. Pt required multiple rest breaks supine in bed as this is th e position that most elevates pain. Pt was very agreeable to continuing session and wanting to do whatever needed for therapy but was limited by his pain. RN made aware. Spoke to matt milian about pt being scheduled to where he has breaks in between sessions as he is not able to tolerate large chunks of time at once. Education Completed: Education Topics: Bed mobility (Log roll); safety, pain management Completed with: [x] Patient [] Spouse [] Significant other [] Family [] C aregiver [] Other Completed by :[x] Verbal education [] Demonstration [] Handout [] Other: Response to Education: [x] Stated Understanding [] Reinforcement necessary [] Returned demonstration [] Demonstrated understanding [] No evidence of learning [] Refused Graeme Roa DO - 11/15/2017 9:15 AM PDT Progress Notes by Graeme Evans DO at 11/15/17914 Author: Graeme Evans DO Service: Physical Medicine and Rehab Author Type: Physician Filed: 11/15/17916 Date of Service: 11/15/17914 Status: Signed Hooking Machine Operator: Graeme Evans DO (Physician) [facility] Service: Physical Medicine & Rehab Progress Note Hospital Day: LOS: 1 day Post-Op Day: * No surgery found * SUBJECTIVE Adjusting to unit Patient Summary: no new c/o Events Overnight: none Scheduled Medications aspirin 81 mg Oral Daily atorvastatin 20 mg Oral Nightly calcitonin (salmon) 1 spray Alternating Nares Daily co-enzyme Q-10 200 mg Oral Daily digoxin 0.125 mg Oral Daily diltiazem 240 mg Oral Daily doxazosin 2 mg Oral Nightly furosemide 40 mg Oral Daily lactulose 30 g Oral Daily Lidocaine 1 patch Transdermal Daily methocarbamol 1,500 mg Oral 4x Daily multivitamin with minerals 1 tablet Oral Daily senna 2 tablet Oral Nightly spironolactone 12.5 mg Oral Daily umeclidinium-vilanterol 1 puff Inhalation Daily Continuous Infusions PRN Medications acetaminophen OR acetaminophen, ipratropium-albuterol, ondansetron OR ondansetron, oxyCODONE-acetaminophen, oxyCODONE-acetaminophen, polyethylene glycol, zolpidem OBJECTIVE Vital Signs: BP 141/81 | Pulse 93 | Temp 97.9 F (36.6 C) (Oral) | Resp 20 | Ht 1.753 m (5' 9") | Wt 71.7 kg (158 lb 1.6 oz) | SpO2 95% | BMI 23.35 kg/m Temp: [97 F (36.1 C)-97.9 F (36.6 C)] 97.9 F (36.6 C) (11/16 527) BP: (136-144)/(69-95) 141/81 (11/15 832) Heart Rate: [92-100] 93 (11/15 832) Resp: [20-22] 20 (11/16 527) SpO2: [91 %-99 %] 95 % (11/16 527) Height: [175.3 cm (5' 9")] 175.3 cm (5' 9") (11/15 1199) Weight: [71.7 kg (158 lb 1.6 oz)-73.1 kg (161 lb 3.2 oz)] 71.7 kg (158 lb 1.6 oz) (11/15 0 528) BMI (Calculated): [23.9] 23.9 (11/15 1199) No changes in PE DATA CBC: Lab Results Component Value Date WBC 10.04 11/14/2017 RBC 4.96 11/14/2017 HGB 10.4 (L) 11/14/2017 HCT 34.1 (L) 11/14/2017 MCV 68.7 (L) 11/14/2017 MCH 21.0 (L) 11/14/2017 MCHC 30.6 (L) 11/14/2017 RDW 46.8 11/14/2017 PLT 300 11/14/2017 MPV 7.8 11/14/2017 DIFFTYPE AUTOMATED 11/14/2017 PROBLEM LIST Active Problems: Compression fracture of lumbar vertebra (HCC) Lumbar degenerative disc disease T12 compression fracture (HCC) Chronic atrial fibrillation (HCC) COPD, severe (HCC) Chronic respiratory failure with hypoxia (HCC) Hypertension ASSESSMENT & PLAN Continue full PT, OT and HOSPITAL COOK program Disposition: home Code Status: Prior Graeme Evans DO 11/15/2017 documented in this encounter H&P Notes Harmony Byrne MD - 11/14/2017 4:56 PM PDT H&P by Harmony Byrne MD at 11/14/17 5551 Author: Harmony Byrne MD Service: Physical Medicine and Rehab Author Type: Physician Filed: 11/14/17 1800 Date of Service: 11/14/17 5280 Status: Signed Hooking Machine Operator: Harmony Byrne MD (Physician) [facility] Service: Physical Medicine and Rehab Admission History & Physical Date of Admission: 11/14/2017 Reason for Admission: Admitted for increasing back pain due to new T 12 Compression Fractu re and 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 CHIEF COMPLAINT: SOB. Lower Back Pain. HISTORY OF PRESENT ILLNESS Hx from patient and chart review. The patient is a 87 y.o. male with significant past medical history of Chronic atrial fibri llation, HFpEF, Oxygen dependent COPD, pulmonary hypertension, elevated right hemidiaphragm, coronary artery disease, hepatitis, hypertension, previous history of lumbar compression fr acture of L1 who presented with Increased dyspnea, edema, and back pain due to acute CHF a nd new T12 Compression Fx. Pt says that he sees Dr Knox, director of maintenance, and Dr Wei, municipal engineer. His medicatio ns were changed and his Lasix was increased but he stopped all Lasix a few days before admis kelin. He also fell 3 - 4 days before admission. He has Chronic Back pain but the pain marilyn me increasingly worse. He denies leg weakness or numbness. His edema and dyspnea also in creased so he came to [facility]. He was admitted and aggressively diuresed. Digoxin was resta rted to control his rate. He is unable to walk due to severe Lower Back pain and severe Dys pnea. Pt is on 2 L Oxygen 24 hrs a day at home. He has a chávez because he was unable to ge t out of bed and he was unable to urinate. RNs started chávez clamping routine prior to disc harge to [facility] without success. No BM x 1 week. Pt plans to go home at discharge. REVIEW OF SYSTEMS GEN: No Fever or Chills. Weight loss 10 lbs with diuresis. HEENT: No Sore throat, Earache, Headache, Rhinitis. RESP: + SOB, HERNANDEZ. No cough, Wheezing, Sputum, Orthopnea. CV: No Chest Pain, Palpitations, Pedal Edema(now), Syncope. ABD: No Nausea, Vomiting, Abdominal Pain, DIarrhea, Melena, BRBPR. + Constipation. URO: No Dysuria, Hematuria prior to admission. He did not have a chávez at home. + Retent ion Symptoms. ENDO: No History Diabetes or Thyroid Disease. NEURO: No new Neuro Symptoms. No History of Seizures or CVAs. Past Medical History Diagnosis Date Acute on chronic diastolic heart failure (HCC) 11/12/2017 Atrial fibrillation (HCC) Drug-induced constipation 11/12/2017 Heart attack (HCC) Hepatitis History of stomach ulcers Hypertension Irregular heart beat Joint pain Unspecified visual disturbance Past Surgical History Procedure Laterality Date Diagnostic blocks Left 11-09-2015 Left diagnostic block of the dorsal ramus of L5 & lateral branches of S1,S2,S3 HERNIA REPAIR 1937 NECK SURGERY SACROILIAC JOINT INJECTION 11-24-12 Left SACROILIAC JOINT INJECTION 05-18-13 Left SACROILIAC JOINT INJECTION 10-14-2014 Left sacroiliac joint injection SACROILIAC JOINT INJECTION Left 03/28/2015 Left Sacroiliac Joint Injection SHOULDER SURGERY 2001 STOMACH SURGERY 1970 TOTAL KNEE ARTHROPLASTY 1999 Allergies Allergen Reactions Fentanyl Diarrhea Prescriptions Prior to Admission Medication Sig Dispense Refill Last Dose albuterol (PROAIR HFA) 108 (90 Base) MCG/ACT inhaler Inhale 2 puffs into the lungs ever y 4 (four) hours as needed for Wheezing. 1 Inhaler 5 Taking at Unknown time aspirin 81 MG tablet Take 81 mg by mouth daily. Taking at Unknown time Coenzyme Q10 (COQ10) 200 MG CAPS Take by mouth. Taking at Unknown time digoxin (LANOXIN) 0.125 MG tablet Take 125 mcg by mouth daily. Taking at Unknown time diltiazem (CARDIZEM CD) 180 MG 24 hr capsule Take 1 capsule by mouth daily. 90 capsule 3 Taking at Unknown time doxazosin (CARDURA) 2 MG tablet Take 2 mg by mouth nightly. Taking at Unknown time furosemide (LASIX) 40 MG tablet Take 1 tablet by mouth daily. Taking at Unknown time Multiple Vitamins-Minerals (MULTIVITAMIN WITH MINERALS) tablet Take 1 tablet by mouth d aily. Taking at Unknown time oxycodone-acetaminophen (PERCOCET) 10-325 MG per tablet Take 1 tablet by mouth every 6 (six) hours as needed. 120 tablet 0 Taking at Unknown time Oxygen (outpatient therapy) Start oxygen on exertion/ambulation at __ LPM via nasal can nula, and at night at __ LPM. Pls evaluate for conserving device. Pls provide home concentra tor and portable oxygen system. 1 Units 0 Taking at Unknown time spironolactone (ALDACTONE) 25 MG tablet Take 12.5 mg by mouth daily. Taking at Unknow n time bisoprolol (ZEBETA) 5 MG tablet Take 5 mg by mouth 2 (two) times daily. Not Taking at Unknown time lisinopril (ZESTRIL) 2.5 MG tablet Take 2.5 mg by mouth daily. Not Taking at Unknown time metaxalone (SKELAXIN) 800 MG tablet Not Taking at Unknown time OXYCODONE HCL PO Take 0.5 tablets by mouth as needed. Taking simvastatin (ZOCOR) 40 MG tablet Take 40 mg by mouth nightly. Not Taking at Unknown t ze Family History Problem Relation Age of Onset Cancer Sister Social History Social History Marital status: Spouse name: N/A Number of children: N/A Years of education: N/A Occupational History Not on file. Social History Main Topics Smoking status: Former Smoker Packs/day: 2.50 Years: 15.00 Quit date: 09/20/1999 Smokeless tobacco: Former User Alcohol use 8.4 oz/week 14 Shots of liquor per week Drug use: No Sexual activity: Not on file Other Topics Concern Not on file Social History Narrative No narrative on file PHYSICAL EXAM Vital Signs: BP (!) 136/95 (BP Location: Right upper arm) | Pulse 100 | Temp 97 F (36.1 C) (Oral) | Resp 20 | Ht 1.753 m (5' 9") | Wt 73.1 kg (161 lb 3.2 oz) | SpO2 99% | BMI 23.81 kg/m HEENT: No Neck Lymph Nodes. [place]. . RESP: Pt speaks in short sentences due to dyspnea. Using Accessory respiratory muscles. Lungs Clear. Dull in R base. No wheezing. CV: + Murmur. No Gallop, Carotid Bruit, Pitting Edema. ABD: + BS. Nondistended. Nontender. No HSM. No rebound. SKIN: Bruising arms and legs. . Skin tear Left Elbow. EXT: Calves Nontender. Negative Rita's sign. MUSC: Bilat olecranon bursa swelling. Lumbar spine tender. Tender with movement. Could not test SLR or Maxime's test. NEURO: A&O x 3. PERRLA. CN 2 - 12 grossly normal except [place]. Reflexes symmetric. Sens ations of light touch and proprioception intact in all 4 extremities. DATA CBC: Lab Results Component Value Date WBC 10.04 11/14/2017 RBC 4.96 11/14/2017 HGB 10.4 (L) 11/14/2017 HCT 34.1 (L) 11/14/2017 MCV 68.7 (L) 11/14/2017 MCH 21.0 (L) 11/14/2017 MCHC 30.6 (L) 11/14/2017 RDW 46.8 11/14/2017 PLT 300 11/14/2017 MPV 7.8 11/14/2017 DIFFTYPE AUTOMATED 11/14/2017 CMP: Lab Results Component Value Date NA 132 (L) 11/14/2017 K 4.5 11/14/2017 CL 92 (L) 11/14/2017 CO2 38 (H) 11/14/2017 ANIONGAP 7 11/14/2017 GLUF 110 (H) 11/14/2017 BUN 21 11/14/2017 CREATININE 1.0 11/14/2017 BCR 21 11/14/2017 CA 8.7 11/14/2017 PROT 6.6 11/11/2017 ALB 3.2 (L) 11/11/2017 GLOB 3.4 11/11/2017 BILITOT 0.6 11/11/2017 ALP 209 (H) 11/11/2017 AST 27 11/11/2017 ALT 27 11/11/2017 EGFR >60 11/14/2017 PT/INR: Lab Results Component Value Date INR 5.8 (HH) 11/14/2017 PTT: Lab Results Component Value Date APTT 44 (H) 11/11/2017 [APTT} Last 3 Troponin: Lab Results Component Value Date TROPONINI 0.033 11/11/2017 CPK: Lab Results Component Value Date CKTOTAL 73 11/11/2017 CKMB: Lab Results Component Value Date CKMB 2.9 11/11/2017 U/A: No results found for: COLORU, CLARITYU, MEROPENEM, LEUKOCYTESUR, NITRITE, UROBILINOGE N, UPRO, PHUR, BLOODU, KETONES, BILIRUBINUR, GLUCOSEU, EPIS TSH: No results found for: TSH, TSHNEO PROBLEM LIST Active Problems: Compression fracture of lumbar vertebra (HCC) Lumbar degenerative disc disease T12 compression fracture (HCC) Chronic atrial fibrillation (HCC) COPD, severe (HCC) Chronic respiratory failure with hypoxia (HCC) [facility] 87 y/[facility] male admitted to [facility] for debilitation due to CHF and Gait disturbance due to new T 1 2 Compression Fracture. 1. HFpEF - acute on chronic. Monitor weight, fluid status, oxygenation.Continue current m edications. 2. Acute T 12 Compression Fracture / Gait disturbance. Monitor Pain control. Aggressive PT and OT. 3. Debilitation due to CHF. Aggressive PT and OT. Monitor Oxygen saturation with therapy. 4. Coagulopathy due to over anticoagulation on Coumadin. Coumadin held. Check INR daily and resume lower dose Coumadin when INR therapeutic. 5. Chronic A.Fib. Monitor rate. 6. Oxygen dependent COPD with Pulmonary HTN. Monitor symptoms and oxygenation. Continue Oxygen. Continue current meds. 7. HTN. BP normal this morning. Monitor. Continue current medication. 8. Urinary Retention. Pt has indwelling chávez. Begin Bladder training with clamping Fole y for 3 hrs, if no senstion continue clamping for total of 5 hours. If pt has bladder sensa tion, remove chávez. If no sensation, unclamp chávez and repeat next day. Bladder Ultrasound s prn. 9. [place]. 10. Disposition. for discharge planning. Pt wishes to return home. Plan IPR admissi on for 2 weeks. Code Status: Prior HARMONY BYRNE MD 11/14/2017 documented in th is encounter Miscellaneous Notes Plan of Care - Conversion Transaction, Provider Unknown - 12/02/2017 2:36 AM PDT Plan of Care by Esha Garcia RN at 12/02/17 0236 Author: Esha Garcia RN Service: (none) Author Type: Registered Nurse Filed: 12/02/17 0237 Date of Service: 12/02/17235 Status: Signed Hooking Machine Operator: Esha Garcia RN (Registered Nurse) Patient will remain free from falls: High Risk (Dale 51+) Progressing No falls this shift. Resting quietly at this time. Calls appropriately to request assistanc e as needed. lan o f Care - Conversion Transaction, Provider Unknown - 12/01/2017 6:33 PM PDTFormatting of thi s note might be different from the original. Plan of Care by Gonsalo Voss RN at 12/01/171832 Author: Gonsalo Voss RN Service: (none) Author Type: Registered Nurse Filed: 12/01/171832 Date of Service: 12/01/171832 Status: Signed Hooking Machine Operator: Gonsalo Voss RN (Registered Nurse) Problem: Pain Goal: STG - Patients pain is managed to allow active participation in daily activities Outcome: Progressing Pt states that pain has been tolerable at a 4/10 during my shift. He continues to receive s cheuled oxycodone as prescribed. No facial grimacing or signs of discomfort noted. Pt restin g comfortably in bed now. WCTM. lan o f Care - Conversion Transaction, Provider Unknown - 11/30/2017 11:43 PM PDTFormatting of thi s note might be different from the original. Plan of Care by Juventino Velasco RN at 11/30/172342 Author: Juventino Velasco RN Service: (none) Author Type: Registered Nurse Filed: 11/30/172342 Date of Service: 11/30/172342 Status: Signed Hooking Machine Operator: Juventino Velasco RN (Registered Nurse) Problem: Pain Goal: STG - Patients pain is managed to allow active participation in daily activities Outcome: Progressing Scheduled pain medication sufficient for patient's pain this evening. Patient appears to b e resting peacefully in bed. Will continue to round. lan o f Care - Conversion Transaction, Provider Unknown - 11/30/2017 7:58 AM PDTFormatting of thi s note might be different from the original. Plan of Care by Jody Brown RN at 11/30/17757 Author: Jody Brown RN Service: (none) Author Type: Registered Nurse Filed: 11/30/17 0758 Date of Service: 11/30/17757 Status: Signed Hooking Machine Operator: Jody Brown RN (Registered Nurse) Problem: Bowel Elimination Goal: LTG - Patient will have regular and routine bowel evacuation Outcome: Progressing Pt. Having regular bowel movements with medication management. lan o f Care - Conversion Transaction, Provider Unknown - 11/29/2017 11:[address] s note might be different from the original. Plan of Care by Juventino Velasco RN at 11/29/172357 Author: Juventino Velasco RN Service: (none) Author Type: Registered Nurse Filed: 11/29/172357 Date of Service: 11/29/172357 Status: Signed Hooking Machine Operator: Juventino Velasco RN (Registered Nurse) Problem: Pain Goal: LTG - Patient will manage pain with the appropriate technique/Intervention Outcome: Progressing Current scheduled pain interventions appear to be work well for patient. Patient currently resting in bed. Bed alarm is on and call light within reach. lan o f Care - Conversion Transaction, Provider Unknown - 11/29/2017 8:[address] s note might be different from the original. Plan of Care by Marisol Tyler RN at 11/29/17843 Author: Marisol Tyler RN Service: (none) Author Type: Registered Nurse Filed: 11/29/17843 Date of Service: 11/29/17843 Status: Signed Hooking Machine Operator: Marisol Tyler RN (Registered Nurse) Problem: Knowledge Deficit Goal: Patient will remain free from falls: High Risk (Dale 51+) Outcome: Progressing Patient understands that he is a high fall risk. Will continue to monitor. lan o f Care - Conversion Transaction, Provider Unknown - 11/29/2017 12:[address] s note might be different from the original. Plan of Care by Juventino Velasco RN at 11/29/1716 Author: Juventino Velasco RN Service: (none) Author Type: Registered Nurse Filed: 11/29/177 Date of Service: 11/29/1716 Status: Signed Hooking Machine Operator: Juventino Velasco RN (Registered Nurse) Problem: Pain Goal: LTG - Patient will manage pain with the appropriate technique/Intervention Outcome: Progressing Discussed patients pain needs this afternoon. Patient states he is ok with just scheduled pain medication at this time. He appears to be resting peacefully now. Hourly rounding in the process of being done. lan o f Care - Conversion Transaction, Provider Unknown - 11/28/2017 9:42 AM PDTFormatting of thi s note might be different from the original. Plan of Care by Jody Brown RN at 11/28/17941 Author: Jody Brown RN Service: (none) Author Type: Registered Nurse Filed: 11/28/17941 Date of Service: 11/28/17941 Status: Signed Hooking Machine Operator: Jody Brown RN (Registered Nurse) Problem: Risk for Falls Goal: No falls during hospitalization Patient will not fall during hospitalization. Outcome: Progressing Pt. Locking brakes for all transfers. Pt. prepping before transfers. Non skin socks on at all times. Fall mat beside the bed. lan o f Care - Conversion Transaction, Provider Unknown - 11/28/2017 12:34 AM PDTFormatting of thi s note might be different from the original. Plan of Care by Donya Venegas RN at 11/28/1733 Author: Donya Venegas RN Service: (none) Author Type: Registered Nurse Filed: 11/28/1733 Date of Service: 11/28/1733 Status: Signed Hooking Machine Operator: Donya Venegas RN (Registered Nurse) Problem: Bladder/Voiding Goal: LTG - Patient will achieve acceptable level of continence Outcome: Completed Date Met: 11/28/17 Pt is continent and is using urinal. Problem: Bowel Elimination Goal: LTG - Patient will demonstrate appropriate Intervention for safe bowel elimination. Outcome: Progressing Pt using laxatives and stool softeners. Bowel tones are active and pt is passing gas. Goal: LTG - Patient will have regular and routine bowel evacuation Outcome: Progressing Using laxatives and stool softeners to help have regular bowel movements. lan o f Care - Conversion Transaction, Provider Unknown - 11/27/2017 9:23 AM PDTFormatting of thi s note might be different from the original. Plan of Care by Marisol Tyler RN at 11/27/17922 Author: Marisol Tyler RN Service: (none) Author Type: Registered Nurse Filed: 11/27/17922 Date of Service: 11/27/17922 Status: Signed Hooking Machine Operator: Marisol Tyler RN (Registered Nurse) Problem: Safety Goal: STG - Patient uses gait belt during all transfers Outcome: Progressing Patient understands that he needs his gait belt while transferring. Will continue to monito r. lan o f Care - Conversion Transaction, Provider Unknown - 11/26/2017 11:28 PM PDTFormatting of thi s note might be different from the original. Plan of Care by Donya Venegas RN at 11/26/172327 Author: Donya Veneags RN Service: (none) Author Type: Registered Nurse Filed: 11/26/172327 Date of Service: 11/26/172327 Status: Signed Hooking Machine Operator: Donya Venegas RN (Registered Nurse) Problem: Pain Goal: LTG - Patient will manage pain with the appropriate technique/Intervention Outcome: Progressing Pt states that current medications regimen is effective in managing pain. Goal: STG - Patients pain is managed to allow active participation in daily activities Outcome: Progressing Pt's pain is well managed with scheduled oxycodone and Robaxin. lan o f Pamella - Wing Micah Jain MD - 11/26/2017 2:56 PM PDTFormatting of this note might be differen t from the original. Patient Care Conference by Wing Micah Jain MD at 11/26/17 6014 Author: Wing Micah Jain MD Service: (none) Author Type: Physician Filed: 11/26/17 7172 Date of Service: 11/26/17 5504 Status: Signed Hooking Machine Operator: Wing Micah Jain MD (Physician) INTERDISCIPLINARY TEAM CONFERENCE [facility] Patient's Name: Yeyo Casarez Admit Date: 11/14/2017 CSN: [id number] Admit Dx (Etiologic Dx): T12 compression fracture; 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 CMS Impairment Group Code (IGC): 16 Date of Team Conference: 11/26/2017 Discharge Planning Anticipated discharge date: 12/02/2017 Anticipated discharge destination: Home with family Post discharge services: Home health: PT, OT, RN and Bath aide Follow up with providers: Dr. EZE RICE; Level of supervision at discharge: goal is independent or supervision for higher level acti vities of daily living Equipment needed: Front wheel walker, wheelchair Equipment recommended (to be obtained by family/friends): Leg combining machine operator, tub transfer bench, g rab bars in shower and by toilet, raised toilet seat Family training pending Driving Not recommended Barriers to community-based discharge Back precautions Fall risk Balance deficits Lives alone Areas of focus for the upcoming week: Therapy to continue to work on increasing leg strength, activity tolerance, and safety with transfers and independence with self care. Speech therapy to focus on problem solving and f unctional memory tasks. Home Environment Type of Home: Home one story Home Exterior Layout: 1-3 steps (1 AICHA) Home Interior Layout: Lives on main level with bedroom/bathroom Bathroom Shower/Tub: Tub/shower unit Bathroom Toilet: Standard Bathroom Accessibility: Accessible via walker Home Equipment: Cane quad Prior Function Level of Bryant: Modified independent with functional mobility, Modified independent with ADLs, Assist with IADLs, Driving in community Falls in Past Year: Yes Lives With: Alone Receives Help From: Supervisor Doping ADL Assistance: Independent Home ADL's: (Assistance provided by prisoner classification interviewer and son) Employment: Retired for age Leisure: Hobbies-yes (Comment) (crafts baskets) Comments: Pt reports being on 2L O2 at home within the last month. Current Status: Medical diagnoses/prognosis/interventions Patient Active Hospital Problem List: Compression fracture of lumbar vertebra Assessment: improving Plan: cont with PT and OT Chronic atrial fibrillation Assessment: stable Plan: continue to follow INR Hypertension (11/12/2017) Assessment: stale Plan: cont with current meds Body mass index is 21.97 kg/m. Scheduled Meds: aspirin 81 mg Oral Daily atorvastatin 20 mg Oral Nightly calcitonin (salmon) 1 spray Alternating Nares Daily co-enzyme Q-10 200 mg Oral Daily digoxin 0.125 mg Oral Daily diltiazem 240 mg Oral Daily doxazosin 2 mg Oral Nightly furosemide 40 mg Oral Daily Lidocaine 1 patch Transdermal Daily methocarbamol 750 mg Oral 4x Daily methylnaltrexone 12 mg Subcutaneous Daily multivitamin with minerals 1 tablet Oral Daily oxybutynin 10 mg Oral TID oxyCODONE 5 mg Oral 4x Daily senna 2 tablet Oral Nightly spironolactone 12.5 mg Oral Daily umeclidinium-vilanterol 1 puff Inhalation Daily warfarin 3 mg Oral Daily Results for orders placed or performed during the hospital encounter of 11/14/17 (from the past 24 hour(s)) Protime-INR Collection Time: 11/26/17 6:06 AM Result Value Ref Range INR 1.9 Nursing Pain: Managed with scheduled Roxicodone & Robaxin; Percocet available if needed for break through pain. Bladder: Continent. Bowel: Continent. Medication Management: No issues identified at this time. Skin integrity: BUE bruising. Oxygen needs: 3-3.5L via nasal cannula. (Baseline use: 1.5L at home.) To have home O2 eval prior to discharge. Bed/tab alarm: On for safety. Patient will self-transfer if alarms not active. Diet: Cardiac. Nursing Goals Patient and/or caregiver will demonstrate the ability to manage medical conditions to preve nt complications or extension of primary impairment Ongoing Patient will report that pain is managed at controllable level Ongoing Patient will maintain adequate oxygenation with activity Ongoing Patient will maintain skin integrity Ongoing Patient will remain safe and free from falls Ongoing Activities of Daily Living: Yeyo feeds himself with modified independence. He performs jere oming tasks seated independently, standing with supervision/minimal assist. He bathes seated with moderate assist using grab bars and hand held shower head. He dresses his upper body w ith set up, supervision and cues to kait back brace. He dresses his lower body with moderate assist to supervision dependent upon pain and shortness of breath, using adaptive equipment . He toilets himself with moderate assist using walker and grab bars and elevated toilet sea t. He has been educated on kitchen retrieval and walker safety, as well as energy conservati on techniques/pacing. Standing tolerance: 1 min 45 seconds without arm support, up to 4 minutes using walker to r etrieve objects on floor Home safety assessment: indicating independent responses, patient should do well at h ome 30 second chair test: 6 stands indicating lower levels of ability (norm is 8-14 stands) Functional Transfers: Yeyo performs toilet and shower transfers with supervision using wal ker and grab bars. He is also able to transition out of bed while log rolling with supervisi on and cues to maintain his spinal precautions. Simulation of Yeyo's elevated bed height at family home requires assistance of single leg to return into bed while maintaining spinal p recautions. Yeyo is able to move from sitting to stance at his front wheeled walking with i mproving safety and requires cues less than 25% of the time. He has initiated family trainin g for car transfers with his son appropriately assisting in/out of the passenger side of the vehicle. Mobility: Yeyo has made good progress with his walking, now able to maintain upright stanc e at a front wheeled walker and complete a distance up to 54ft in a single trial with limita tions due to shortness of breath, fatigue and ongoing lumbar pain. Yeyo reports also feelin g that the legs will give out of him when he reaches increased distances and would like to c ontinue strengthening. Fall Risk: Yeyo continues to present with a high risk of falling due to limited activity t olerance, pain and decreased mobility in the presence of healing spinal fracture. Cognition/Communication: The patient has been focusing on functional memory strategies (e.g . Adding events to the calendar on his phone). At times Yeyo's memory skills are negatively impacted by his pain, however he is able to communicate that with staff. He continues to wa nt to use his phone as a means of organization for his events and appointments, even though it is hard for him to navigate. He may benefit from using speech to text. Hand writing information is not functional for him as he cannot read his handwriting. ST wi ll continue to trial different strategies to find which one would best suit his needs. Recom mend speech therapy to assess safety with activities of daily living reportedly at baseline, as well as support or new learning of safety precautions and functional strategies to use w hen he is at home. By discharge from the rehab unit, Yeyo Casarez is expected to regain sufficient function to allow for achievement of the following goals: (STG = short term goal; LTG = prison goal; UE=upper extremity; LE=lower extremity) Physical Therapy Goals PT Goals Goal Formulation: With patient/family Pt Will Go Supine To Sit: With modified independence, Not met Pt Will Go Sit To Supine: With modified independence, Not met Pt Will Logroll: With modified independence, Not met Pt Will Transfer Sit to Stand: With modified independence, Not met Pt Will Transfer Bed/Chair: With modified independence, Not met Pt Will Ambulate: 50-100 feet, Met, New / revised goal, 101-149 feet Ambulate Level Assist: With modified independence, Not met Ambulate with Assistive Device: Least restricitve device, Partly met Pt Will Go Up / Down Stairs: 1-2 stairs, Not met Stairs Level of Assist: With modified independence, Not met Family Training: Demonstrate understanding of proper use of equipment, Demonstrate ability to assist patient with donning /doffing TLSO, Provide return demo of safe assistance with fu nctional mobility, New / revised goal Occupational Therapy Goals ADL Goals Pt Will Perform Grooming: Standing at sink, With supervision, Goal not met (continue goal) Pt Will Perform Bathing: In shower/tub unit, With mod assist, Goal met (LTG supervision-con tinue goal) Pt Will Perform UE Dressing: At edge of bed, Mod independently, Goal met Pt Will Perform LE Dressing: At edge of bed, With mod assist, With adaptive equipment, Goal met (LTG supervision-partly met, continue) LE Dressing Adaptive Equipment: Sock aid, Faculty Neuropsychologist, Dressing stick Functional Transfer Goals Pt Will Perform All Functional Transfers: With min assist, With assistive device, Goal met (LTG supervision-goal met) Speech Therapy Goals Memory/Recall Goals Windows Server Engineer Goals: Increased recall Pt will demonstrate increased recall of information : For basic ADLs, New/revised goal, Wit h min cues Short Term Goals: Recall 3 items, Recall activities/events Pt will recall activities/events : [address] session, Daily activities, With min cues, In 80% of trials, Goal progressing Pt will recall 3 items after a delay : After 10 min delay, With min cues, In 80% of trials, Goal progressing General Goals Short Term Goals: Complete formal assessment Pt will complete formal assessment : Goal progressing Staff present Administration: Wing Cristobal MD, Personal Injury Paralegal Therapy Services Discharge Planning: RONNELL Rangel, Tension Machine OperatorProduct Applications Engineer Services: Barbara Edwards RN Occupational Therapy: Mariajose Morin, OTR/L Physical Therapy: Carisa Garner, PT Speech/Language Pathology: Daja Marrero MS, CCC-HOSPITAL COOK Scribe: Jana Loredo PT Trinity Singh MA, CCC-HOSPITAL COOK - 11/26/2017 10:15 AM PDTFormatting of this note might be differe nt from the original. Treatment Plan by Trinity Arzola MA CCC-HOSPITAL COOK at 11/26/17 1015 Author: Trinity Arzola MA CCC-HOSPITAL COOK Service: (none) Author Type: Speech and Language Pathologist Filed: 11/26/17 7618 Date of Service: 11/26/17 1015 Status: Signed Hooking Machine Operator: Trinity Arzola MA CCC-HOSPITAL COOK (Speech and Language Pathologist) SPEECH - LANGUAGE - COGNITION HOSPITAL COOK Received On: 04/20/18 Requires HOSPITAL COOK Follow Up: Yes Treatment Plan: Cognitive evaluation/treatment Treatment Frequency: 4-6 x/week Session type: Treatment Family/Caregiver Present: No Cognition Problem Solving Comments: Pt required moderate cues to navigate his cell phone and find shahid t messages. Memory Comments: Pt required mod-max cues to recall steps to take to find text messages on his phone and send a recorded voice message (through text). Pt shared he would like to khadar yovanny to practice sending recorded voice messages stating he found it very helpful. ST offered to write down steps to navigate phone however pt declined. 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 Education Completed Education Topics: [x] Cognition: Educate on speech-language pathology role, sessions activities, results, sa fety precautions, plan of care, and homework activities [] Speech: Educate on speech-language pathology role, sessions activities, results, plan of care, and homework activities. [] Language: Educate on speech-language pathology role, sessions activities, results, pl an of care, and homework activities. Completed with: [x] Patient [] Spouse [] Significant other [] Family [] C aregiver [] Other Completed by: [x] Verbal education [x] Demonstration [] Handout [] Other: Response to Education: [] Stated Understanding [x] Reinforcement necessary [] Return ed demonstration [] Demonstrated understanding [] No evidence of learning [] Refused Trinity Arzola MA CCC-HOSPITAL COOK lan o f Care - Conversion Transaction, Provider Unknown - 11/26/2017 9:40 AM PDTFormatting of thi s note might be different from the original. Plan of Care by Marisol Tyler RN at 11/26/17939 Author: Marisol Tyler RN Service: (none) Author Type: Registered Nurse Filed: 11/26/17939 Date of Service: 11/26/17939 Status: Signed Hooking Machine Operator: Marisol Tyler RN (Registered Nurse) Problem: Safety Goal: STG - Patient locks brakes on wheelchair Outcome: Progressing Patient knows to lock his brakes on his wheelchair before he gets up. Will continue to dorothy tor. lan o f Care - Conversion Transaction, Provider Unknown - 11/26/2017 3:27 AM PDTFormatting of thi s note might be different from the original. Plan of Care by Esha Garcia RN at 11/26/17326 Author: Esha Garcia RN Service: (none) Author Type: Registered Nurse Filed: 11/26/178 Date of Service: 11/26/17326 Status: Signed Hooking Machine Operator: Esha Garcia RN (Registered Nurse) Patient will remain free from falls: High Risk (Dale 51+) Progressing Fall mat at bedside. Bed alarm on at all times for safety. Reinforced teaching to call befo re attempting to get OOB. Patient has not set of alarm this shift. Calling appropriately at this time. iscel laneous - Conversion Transaction, Provider Unknown - 11/25/2017 4:00 PM PDTFormatting of th is note might be different from the original. Treatment Plan by Dulce Sanders PT at 11/25/171599 Author: Dulce Sanders PT Service: (none) Author Type: Physical Therapist Filed: 11/25/171905 Date of Service: 05/22/18 1600 Status: Signed Hooking Machine Operator: Dulce Sanders, PT (Physical Therapist) PHYSICAL THERAPY RE-EVALUATION PT Received On: 11/25/17 Reason for Treatment: Other (comment) (L1 compression fracture) Requires PT Follow Up: Yes Follow up PT Only?: No Focus for Next Treatment: Stair Training, Family Training/Education (see comment), Bed Mobi lity Technique, Transfer Technique PT Eval/Reassessment Date: 11/25/17 Assistance Required: 1 person Workforce Planning Analyst Needed: No Recommendations: IRF (HHPT at d/c) Equipment Recommended: Walker front wheeled, W/C manual Plan Treatment/Interventions: Amb with mobility aide, Assist d/c plannning, Balance training, Be d mobility training, Family training, Gait training, Review HEP, Review precautions, Stair t raining, Therapeutic exercise, Transfer training, W/C training Progress: Progressing toward goals PT Frequency: 5-7x/wk, Once per day, Twice a day Care Duration (# of days): 7 # of days Summary Comments: Pt received sitting upright in manual wheelchair donning TLSO on 3LPM nc with gladys denney present and agreeable to PT session with treatment emphasis for introduction to family t raining. Pt participates in car transfer x 2 trials with reduced burden of care and good ret urn demo performed by son. Ongoing episodes of impulsivity reducing safety/efficacy of FWW u se to assist in upright balance and avoid lumbar rotation. Pt additionally with poor recall for log roll and transition to return to recline in bed. Pt and family to benefit from [facility] skilled PT to progress all mobility techniques with emphasis for stair training as d/c lo cation has 2STE. Pt returned end of session to reclined in bed, TLSO doffed with 3LPM nc con tinued and RN present for medication administration. Precautions Spinal Precautions: TLSO on when upright, Lumbar Other Precautions: fall risk, SpO2>/= 88% Cognition Overall Cognitive Status: Within Functional Limits Orientation Level: Oriented Oriented: x 4 FUNCTIONAL MOBILITY Bed Mobility Rolling: Supervison, Verbal instruction Sit to Supine: Min assist (1 LE into bed) Transfers Sit to/from Stand: Supervision, Verbal instruction Bed to/from Chair: Supervision, Verbal instruction Car Transfer: Minimal assist, Verbal instruction Ambulation Weight Bearing Status: WBAT RLE, WBAT LLE Maximal Ambulation Distance (feet): 2x15ft Total Ambulation Distance (feet): 30ft Ambulation Assistance: Standby assist, Supervision Distance limited by?: Therapist/staff discretion Pattern: Alternating, Decreased garland, Right swing foot doesn't pass stance foot, Left sw ing foot doesn't pass stance foot, Right step height adequate, Left step height adequate, Fo rward flexed Assistive Device: Walker front wheeled Wheelchair Mobility Maximal Wheelchair Distance (feet): 200ft Total Wheelchair Distance (feet): 200ft Wheelchair: Supervision Distance limited by?: Patient's ability Wheelchair Propulsion: BUE, BLE Wheelchair Type: Standard Wheelchair Surface: Carpet, Linoleum Wheelchair Management: Brake Right, Brake Left Activity Tolerance: Patient limited by fatigue, Patient limited by pain, Patient limited by shortness of breath (SOB) Nurse Made Aware: SELAM Vera present and aware Safety Devices in Place: Yes Type of Devices: (call light in reach, bed alarm armed) Restraints Initially in Place: No The patient reported pain rated at a 5/10. SELAM Vera present and administers medication. Education Completed: Education Topics: [x] Rationale for PT [x] PT POC [x] DC planning [x] Precautions [] Exercises [x] Bed mobility [x] Transfer training with hand placement [x] Gait training [] Stair training [x] Use of gait belt [x] Other: car transfer Completed with: [x] Patient [] Spouse [] Significant other [x] Family [] Caregiver [] Other Completed by: [x] Verbal education [x] Demonstration [] Handout [] Other: Response to Education: [x] Stated Understanding [x] Reinforcement necessary [x] Returned demonstration [x] Demonstrated understanding [] No evidence of learning [] Refused Physical Therapy Goals PT Goals Goal Formulation: With patient/family Pt Will Go Supine To Sit: With modified independence, Not met Pt Will Go Sit To Supine: With modified independence, Not met Pt Will Logroll: With modified independence, Not met Pt Will Transfer Sit to Stand: With modified independence, Not met Pt Will Transfer Bed/Chair: With modified independence, Not met Pt Will Ambulate: 50-100 feet, Met, New / revised goal, 101-149 feet Ambulate Level Assist: With modified independence, Not met Ambulate with Assistive Device: Least restricitve device, Partly met Pt Will Go Up / Down Stairs: 1-2 stairs, Not met Stairs Level of Assist: With modified independence, Not met Family Training: Demonstrate understanding of proper use of equipment, Demonstrate ability to assist patient with donning /doffing TLSO, Provide return demo of safe assistance with fu nctional mobility, New / revised goal lan o f Care - Conversion Transaction, Provider Unknown - 11/25/2017 9:42 AM PDTFormatting of thi s note might be different from the original. Plan of Care by Jody Brown RN at 11/25/17941 Author: Jody Brown RN Service: (none) Author Type: Registered Nurse Filed: 11/25/17941 Date of Service: 11/25/17941 Status: Signed Hooking Machine Operator: Jody Brown RN (Registered Nurse) Problem: Pain Goal: LTG - Patient will manage pain with the appropriate technique/Intervention Outcome: Progressing Pt. Occasionally uses breakthrough pain. Pt. Aware of medication options. lan o f Care - Conversion Transaction, Provider Unknown - 11/25/2017 3:09 AM PDTFormatting of thi s note might be different from the original. Plan of Care by Esha Garcia RN at 11/25/17 0309 Author: Esha Garcia RN Service: (none) Author Type: Registered Nurse Filed: 11/25/17 0309 Date of Service: 11/25/17308 Status: Signed Hooking Machine Operator: Esha Garcia RN (Registered Nurse) Patient will remain free from falls: High Risk (Dale 51+) Progressing Bed alarm on for safety. Patient calls appropriately for needs. LTG - Patient will achieve acceptable level of continence Progressing Patient continent this shift. Uses urinal independently in bed. lan o f Care - Conversion Transaction, Provider Unknown - 11/24/2017 9:41 AM PDTFormatting of thi s note might be different from the original. Plan of Care by Jody Brown RN at 11/24/17 0941 Author: Jody Brown RN Service: (none) Author Type: Registered Nurse Filed: 11/24/17940 Date of Service: 11/24/17940 Status: Signed Hooking Machine Operator: Jody Brown RN (Registered Nurse) Problem: Risk for Falls Goal: No falls during hospitalization Patient will not fall during hospitalization. Outcome: Progressing Pt. Using brakes for transfers. Pt. Getting stronger on his transfers. Non skid socks or shoes on at all times. lan o f Care - Conversion Transaction, Provider Unknown - 11/23/2017 10:30 PM PDTFormatting of thi s note might be different from the original. Plan of Care by Anna Joaquin RN at 11/23/172229 Author: Anna Joaquin RN Service: (none) Author Type: Registered Nurse Filed: 11/23/172229 Date of Service: 11/23/172229 Status: Signed Hooking Machine Operator: Anna Joaquin RN (Registered Nurse) Problem: Bladder/Voiding Goal: LTG - Patient will achieve acceptable level of continence Outcome: Progressing Pt remains continent. Uses urinal at bedside. Will continue to monitor. Dejan DOSS lan o f Care - Conversion Transaction, Provider Unknown - 11/23/2017 10:39 AM PDTFormatting of thi s note might be different from the original. Plan of Care by Naina Angeles RN at 11/23/171038 Author: Naina Angeles RN Service: (none) Author Type: Registered Nurse Filed: 11/23/179 Date of Service: 11/23/171038 Status: Signed Hooking Machine Operator: Naina Angeles RN (Registered Nurse) Problem: Bowel Elimination Goal: LTG - Patient will have regular and routine bowel evacuation Outcome: Not Progressing Using laxatives daily without bm for 7 days. Administered sub-q Relistor today lan o f Care - Conversion Transaction, Provider Unknown - 11/22/2017 11:02 PM PDTFormatting of thi s note might be different from the original. Plan of Care by Evelin Chan RN at 11/22/172301 Author: Evelin Chan RN Service: (none) Author Type: Registered Nurse Filed: 11/22/172301 Date of Service: 11/22/172301 Status: Signed Hooking Machine Operator: Evelin Chan RN (Registered Nurse) Problem: Bladder/Voiding Goal: LTG - Patient will achieve acceptable level of continence Outcome: Progressing Pt remains continent. Uses urinal independently. lan o f Care - Conversion Transaction, Provider Unknown - 11/22/2017 3:45 PM PDTFormatting of thi s note might be different from the original. Plan of Care by Naina Angeles RN at 11/22/171544 Author: Naina Angeles RN Service: (none) Author Type: Registered Nurse Filed: 11/22/17 154 Date of Service: 11/22/171544 Status: Signed Hooking Machine Operator: Naina Angeles RN (Registered Nurse) Problem: Pain Goal: STG - Patients pain is managed to allow active participation in daily activities Outcome: Progressing Reports pain control much improved lan o f Care - Conversion Transaction, Provider Unknown - 11/21/2017 11:34 PM PDTFormatting of thi s note might be different from the original. Plan of Care by Evelin Chan RN at 11/21/172333 Author: Evelin Chan RN Service: (none) Author Type: Registered Nurse Filed: 11/21/174 Date of Service: 11/21/172333 Status: Signed Hooking Machine Operator: Evelin Chan RN (Registered Nurse) Problem: Safety Goal: STG - Patient uses call light consistently to request assistance with transfers Outcome: Progressing Pt calls consistently for staff assistance. Bed alarm activated and floor abigail placed by be d. Call light in reach. lan o f Care - Conversion Transaction, Provider Unknown - 11/21/2017 9:57 AM PDTFormatting of thi s note might be different from the original. Plan of Care by Marisol Tyler RN at 11/21/17956 Author: Marisol Tyler RN Service: (none) Author Type: Registered Nurse Filed: 11/21/17956 Date of Service: 11/21/17956 Status: Signed Hooking Machine Operator: Marisol Tyler RN (Registered Nurse) Problem: Safety Goal: STG - Patient uses call light consistently to request assistance with transfers Outcome: Progressing Patient calls consistently to request assistance from staff. Will continue to monitor. lan o f Care - Conversion Transaction, Provider Unknown - 11/20/2017 11:[address] s note might be different from the original. Plan of Care by Juventino Velasco RN at 11/20/172347 Author: Juventino Velasco RN Service: (none) Author Type: Registered Nurse Filed: 11/20/172347 Date of Service: 11/20/172347 Status: Signed Hooking Machine Operator: Juventino Velasco RN (Registered Nurse) Problem: Pain Goal: LTG - Patient will manage pain with the appropriate technique/Intervention Outcome: Progressing Patient calls appropriately for care needs including pain management. Bed alarm is on and call light is within reach. lan o f Care - Conversion Transaction, Provider Unknown - 11/20/2017 10:[address] s note might be different from the original. Plan of Care by Jody Brown RN at 11/20/17 101 Author: Jody Brown RN Service: (none) Author Type: Registered Nurse Filed: 11/20/17 1011 Date of Service: 11/20/17 101 Status: Signed Hooking Machine Operator: Jody Brown RN (Registered Nurse) Problem: Pain Goal: LTG - Patient will manage pain with the appropriate technique/Intervention Outcome: Progressing Pt. Aware of pain options. Pt. Changed to scheduled medication times. Pt. Stating plan is working well. lan o f Care - Conversion Transaction, Provider Unknown - 11/20/2017 12:[address] s note might be different from the original. Plan of Care by Juventino Velasco RN at 11/20/1733 Author: Juventino Velasco RN Service: (none) Author Type: Registered Nurse Filed: 11/20/1733 Date of Service: 11/20/1733 Status: Signed Hooking Machine Operator: Juventino Velasco RN (Registered Nurse) Problem: Bladder/Voiding Goal: LTG - Patient will achieve acceptable level of continence Outcome: Progressing Patient is voiding small amounts in frequent intervals. Encouraged patient to call for car e needs. Bed alarm is on and call light is within reach. lan o f Care - Conversion Transaction, Provider Unknown - 11/19/2017 9:[address] s note might be different from the original. Plan of Care by Marisol Tyler RN at 11/19/17949 Author: Marisol Tyler RN Service: (none) Author Type: Registered Nurse Filed: 11/19/17949 Date of Service: 11/19/17949 Status: Signed Hooking Machine Operator: Marisol Tyler RN (Registered Nurse) Problem: Knowledge Deficit Goal: Patient will remain free from falls: High Risk (Dale 51+) Outcome: Progressing Patient is aware of his high fall risk and to call staff for assistance. Fall mat and alarm in place. lan o f Care - Wing Micah Jain MD - 11/19/2017 8:37 AM PDTFormatting of this note might be differen t from the original. 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 EZE RICE; Level of supervision at discharge: goal is independent or supervision for higher level acti vities of daily living Equipment needed: To be determined closer to discharge; likely a 4-wheeled walker Equipment recommended (to be obtained by family/friends): Faculty Neuropsychologist;Sock aid;Leg combining machine operator Family training pending Driving Not recommended Barriers to community-based discharge Fall risk Decreased endurance Decreased safety May need assistance with medication management and finances Areas of focus for the upcoming week: Continue to address his decreased endurance to allow for more independence with all activit y. Improve bladder control. Home Environment Type of Home: Home one story Home Exterior Layout: 1-3 steps (1 AICHA) Home Interior Layout: Lives on main level with bedroom/bathroom Bathroom Shower/Tub: Tub/shower unit Bathroom Toilet: Standard Bathroom Accessibility: Accessible via walker Home Equipment: Cane quad Prior Function Level of Bryant: Modified independent with functional mobility, Modified independent with ADLs, Assist with IADLs, Driving in community Falls in Past Year: Yes Lives With: Alone Receives Help From: Supervisor Doping ADL Assistance: Independent Home ADL's: (Assistance provided by prisoner classification interviewer and son) Employment: Retired for age Leisure: Hobbies-yes (Comment) (crafts baskets) Comments: Pt reports being on 2L O2 at home within the last month. Current Status: Medical diagnoses/prognosis/interventions Patient Active Hospital Problem List: T12 compression fracture Assessment: improving Plan: cont with pain management; PT and OT Chronic atrial fibrillation Assessment: monitoring Plan: resumed Coumadin COPD, severe Assessment: stable Plan: on oxygen Chronic respiratory failure with hypoxia Assessment: stable Plan: monitor respiration Hypertension Assessment: stable Plan: cont with current meds Body mass index is 23.1 kg/m. Scheduled Meds: aspirin 81 mg Oral Daily atorvastatin 20 mg Oral Nightly calcitonin (salmon) 1 spray Alternating Nares Daily co-enzyme Q-10 200 mg Oral Daily digoxin 0.125 mg Oral Daily diltiazem 240 mg Oral Daily doxazosin 2 mg Oral Nightly furosemide 40 mg Oral Daily levofloxacin 500 mg Oral QDQ Lidocaine 1 patch Transdermal Daily methocarbamol 1,500 mg Oral 4x Daily multivitamin with minerals 1 tablet Oral Daily senna 2 tablet Oral Nightly spironolactone 12.5 mg Oral Daily umeclidinium-vilanterol 1 puff Inhalation Daily warfarin 5 mg Oral Daily Results for orders placed or performed during the hospital encounter of 11/14/17 (from the past 24 hour(s)) Protime-INR Collection Time: 11/19/17 5:12 AM Result Value Ref Range INR 1.8 Nursing Pain: Using scheduled Robaxin along with Percocet as needed to control pain. Patient state s that this offers some relief, but that his pain level remains high. Bladder: Continent. Wears briefs for occasional incontinence. Bowel: Continent. Using stool softeners and laxatives. Medication Management: Takes pills whole with water. Requires set-up. Blood glucose: No issues. Skin integrity: No issues. Oxygen needs: Requiring O2 @ 3.5 L/min via nasal cannula. Bed/tab alarm: Calls appropriately. Isolation: None. Diet: Cardiac Nursing Goals Patient and/or caregiver will demonstrate the ability to manage medical conditions to preve nt complications or extension of primary impairment Patient will report that pain is managed at controllable level Patient will maintain adequate oxygenation with activity Patient will maintain skin integrity Ongoing Patient will remain safe and free from falls Ongoing Activities of Daily Living: Yeyo is feeding himself independently. He performs grooming ta sks standing at sink with minimal assist. He bathes seated with moderate assist using hand h eld shower head and grab bars. He dresses his upper body with supervision. He dresses his lo wer body and toilets himself with moderate assist. He is able to tolerate standing for up to 1 minute. Functional Transfers: Yeyo is performing toilet and shower transfers with moderate assist using grab bars. Mobility: Yeyo is able to walk 20-50ft, he is limited by endurance and shortness of breath . When he is in a woodard to get to the bathroom, he becomes much more unsteady and requires in creased assistance for safety. He is now able to transfer in and out of bed with supervision to ensure safety. Fall Risk: High risk for falls. Cognition/Communication: The Assessment of Language-Related Functional Abilities has been s tarted to assess the patient's abilities to complete tasks of daily living. Yeyo mentioned that he has some concerns with his memory, giving the example that he needs multiple repetit ions in order to learn new information. Patient demonstrated insight into his need for chapis tance at home given his current physical limitations, stating that he knows his 4 bedroom ho use is too much for him to take care of at the time and that it may be a good idea to move i n with his family. He stated that he learns better by reading/seeing information. Recommend speech therapy to assess safety with activities of daily living reportedly at baseline, as w ell as support new learning of safety precautions as patient stated it is something he strug gles with and is concerned about with the changes in his health. By discharge from the rehab unit, Yeyo Casarez is expected to regain sufficient function to allow for achievement of the following goals: (STG = short term goal; LTG = prison goal; UE=upper extremity; LE=lower extremity) Physical Therapy Goals PT Goals Goal Formulation: With patient Pt Will Go Supine To Sit: With modified independence, Not met Pt Will Go Sit To Supine: With modified independence, Not met Pt Will Logroll: With modified independence, Met Pt Will Transfer Sit to Stand: With modified independence, Not met Pt Will Transfer Bed/Chair: With modified independence, Not met Pt Will Ambulate: 50-100 feet, Partly met Ambulate Level Assist: With modified independence, Not met Ambulate with Assistive Device: Least restricitve device, Partly met Pt Will Go Up / Down Stairs: 1-2 stairs, Not met Stairs Level of Assist: With modified independence, Not met Occupational Therapy Goals ADL Goals Pt Will Perform Grooming: Standing at sink, With min assist, Goal met, Discontinued (LTG: S upervision- cont goal) Pt Will Perform Bathing: In shower/tub unit, With mod assist, Goal not met (LTG: Supervisi on, conitnue STG and LTG) Pt Will Perform UE Dressing: At edge of bed, With mod assist, Goal met (LTG: Supervision- met, NEW LTG: mod I ) Pt Will Perform LE Dressing: With mod assist, With adaptive equipment, At edge of bed, Goal partly met (LTG: Supervision- not yet met) LE Dressing Adaptive Equipment: Faculty Neuropsychologist, Sock aid, Dressing stick Functional Transfer Goals Pt Will Perform All Functional Transfers: With min assist, With assistive device, Goal not met (LTG: Supervision- not met continue) Speech Therapy Goals Memory/Recall Goals Nursing Home Goals: Increased recall Pt will demonstrate increased recall of information : For basic ADLs, New/revised goal, Wit h min cues Short Term Goals: Recall 3 items, Recall activities/events Pt will recall activities/events : [address] session, Daily activities, With min cues, In 80% of trials, Goal progressing Pt will recall 3 items after a delay : After 10 min delay, With min cues, In 80% of trials, Goal progressing General Goals Short Term Goals: Complete formal assessment Pt will complete formal assessment : Goal progressing Staff present Administration: Wing Cristobal MD, Personal Injury Paralegal Therapy Services Discharge Planning: RONNELL Rangel, Tension Machine OperatorProduct Applications Engineer Services: Barbara Edwards RN Occupational Therapy: Mariajose Morin, OTR/L Physical Therapy: Josy Kwok PT Speech/Language Pathology: JESE Reeder, [facility] Scribe: Jana Loredo, PT lan of Care - Conversi on Transaction, Provider Unknown - 11/19/2017 3:53 AM PDTFormatting of this note might be d ifferent from the original. Plan of Care by Donya Venegas RN at 11/19/17352 Author: Donya Venegas RN Service: (none) Author Type: Registered Nurse Filed: 11/19/17352 Date of Service: 11/19/17352 Status: Signed Hooking Machine Operator: Donya Venegas RN (Registered Nurse) Problem: Pain Goal: LTG - Patient will manage pain with the appropriate technique/Intervention Outcome: Progressing Pt using scheduled Robaxin with Percocet prn to relieve pain. Pt states that pain level is improved slightly with these medications but that it remains high. Ice placed prn with addit ional relief. lan o f Care - Conversion Transaction, Provider Unknown - 11/18/2017 10:13 AM PDTFormatting of thi s note might be different from the original. Plan of Care by Marisol Tyler RN at 11/18/17 1013 Author: Marisol Tyler RN Service: (none) Author Type: Registered Nurse Filed: 11/18/17 1013 Date of Service: 11/18/17 101 Status: Signed Hooking Machine Operator: Marisol Tyler RN (Registered Nurse) Problem: Breathing Goal: STG - Patient can utilize incentive spirometer Outcome: Progressing Encourage patient to use incentive spirometer. Told him to use it frequently throughout the day. Will continue to monitor. lan o f Care - Conversion Transaction, Provider Unknown - 11/18/2017 4:[address] s note might be different from the original. Plan of Care by Donya Venegas RN at 11/18/17421 Author: Donya Venegas RN Service: (none) Author Type: Registered Nurse Filed: 11/18/17421 Date of Service: 11/18/17421 Status: Signed Hooking Machine Operator: Donya Venegas RN (Registered Nurse) Problem: Bladder/Voiding Goal: LTG - Patient will achieve acceptable level of continence Outcome: Progressing Pt has remained continent since removal of catheter. Goal: STG - Patient demonstrates ability to take care of indwelling catheter Outcome: Completed Date Met: 11/18/17 Indwelling catheter removed 11/17. Goal: LTG - Patient will complete bladder elimination Outcome: Progressing Indwelling catheter removed 11/17. Pt is voiding. Pt states that baseline is to void small a katelynn at frequent intervals. Meche Hernandez MS CCC-HOSPITAL COOK - 11/17/2017 10:30 AM PDTFormatting of this note migh t be different from the original. Treatment Plan by Meche Batista MS CCC-HOSPITAL COOK at 11/17/17 1030 Author: Meche Batista MS CCC-HOSPITAL [facility]OOK Service: (none) Author Type: Speech and Language Pa thologist Filed: 11/17/17 1158 Date of Service: 11/17/17 1030 Status: Signed Hooking Machine Operator: Meche Lynne, MS CCC-HOS[facility] (Speech and Language Pathologist) SPEECH - LANGUAGE - COGNITION HOSPITAL COOK Received On: 11/17/17 Requires HOSPITAL COOK Follow Up: Yes Treatment Plan: Cognitive evaluation/treatment Treatment Frequency: 4-6 x/week Session type: Evaluation Additional Pertinent History: Patient reported that he lives alone and is independent with ADLs and iADLs at baseline. He uses his iPad at home as well as his personal search planner/noteboo k to keep track of appointments and orientation, although he remarked that it isn't a foolpr jeanette system and he does forget about appointments at times and needs reminders. He uses an AM /PM pill box and fills it himself. For bill pay, he uses the online system for automatic wit hdrawal as well as addressing statements that come through. He does also write checks, howalexandra er he stated "My handwriting is getting so shakey you can't tell if the amount is for $300 o r $3000 now a days." Patient does not have any concerns with voice or swallowing. Family/Caregiver Present: No Recommend HOSPITAL COOK to follow to assess safety with ADLs reportedly at baseline as well as suppor t new learning of fall precautions as patient stated it is something he struggles with and i s concerned about with the changes in his health. Auditory Hearing: Exceptions to WFL Expression Primary Mode of Expression: Verbal Cognition Responsiveness: Within Functional Limits Oriented To: Situation Reasoning: Deficit awareness/judgement Reasoning Comments: After HOSPITAL COOK explained roles and responsibilities, pt said, "Well, I guess I'm not thinking very good right now" and mentioned that he has some concerns with his ronaldo ry, giving the example that he needs repetition in order to learn. Patient demonstrated insi ght into his need for assistance at home given his current physical limitations, stating ellen t he knows his 4 bedroom house is too much for him to take care of at the time and that it m ay be a good idea to move in with his family. He stated that he learns better by reading/see ing information. Organization Comments: Patient states that he fills his pillbox every Friday. Memory Comments: He wasn't sure how many medications he was taking, but estimated about 7. Patient able to remember that his hearing aids need to be adjusted because they squeal when they're in his ears. He stated that he would have to go to [facility]. Speech Therapy Diagnosis Cognitive Diagnosis: Suspected needs further assessment Activity Tolerance Activity Tolerance: Patient tolerated treatment well Memory/Recall Goals Short Term Goals: Recall activities/events, Recall 3 items Pt will recall activities/events : Daily activities, [address] session, With min cues, In 80% of trials, New/revised goal Pt will recall 3 items after a delay : After 10 min delay, With min cues, In 80% of trials, New/revised goal General Goals Short Term Goals: Complete formal assessment Pt will complete formal assessment : New/revised goal Education Completed Education Topics: [x] Cognition: Educate on speech-language pathology role, sessions activities, results, sa fety precautions, plan of care, and homework activities [] Speech: Educate on speech-language pathology role, sessions activities, results, plan of care, and homework activities. [] Language: Educate on speech-language pathology role, sessions activities, results, pl an of care, and homework activities. Completed with: [x] Patient [] Spouse [] Significant other [] Family [] C aregiver [] Other Completed by: [x] Verbal education [x] Demonstration [] Handout [] Other: Response to Education: [x] Stated Understanding [] Reinforcement necessary [] Return ed demonstration [x] Demonstrated understanding [] No evidence of learning [] Refused lan of Micah alcantara - Wing Micah Jain MD - 11/17/2017 10:18 AM PDTFormatting of this note might be different f rom the original. Plan of Care by Wing Micah Jain MD at 11/17/17 1018 Author: Wing Micah Jain MD Service: (none) Author Type: Physician Filed: 11/17/17 1020 Date of Service: 11/17/17 1018 Status: Signed Hooking Machine Operator: Wing Micah Jain MD (Physician) IOPOC (Inpatient Rehab Individualized Overall Plan of Care) 11/17/2017 Impairment Group Code: Orthopedic Disorders 08.9 Other Orthopedic Medical Prognosis/Intervention: s/p T12 vertebral fracture, acute on chronic CHF, A-fib Required interventions: Physical therapy: Frequency/Duration: 1.5 hours per day, 7 days per week for 14 days, with abbreviated sessi ons or rest breaks on other days PRN Intervention gait training, therapeutic exercise, transfer training, patient education, fa stefanie training and stair training Occupational therapy: Frequency/Duration: 1.5 hours per day, 7 days per week for 14 days, with abbreviated sessi ons or rest breaks on other days PRN Intervention ADL training, patient education, family training, AE instruction, IADL retrai lorena and therapeutic exercise Rehab nursing: Frequency/Duration: 24 hours per day, 7 days per week for duration of stay Intervention bowel/bladder management, medication management, patient education and family training Case management Interventions: assist with discharge planning, patient education and family education Prosthetics/Orthotics: As needed Recreation Therapy: PRN Estimated length of stay: 2 weeks Expected level of improvement: supervision Anticipated discharge destination: Home with family Post discharge services: Home health: PT, OT and Bath aide Wing Demetra Jain MD 11/17/2017 10:20 AM lan of Care - Conversi on Transaction, Provider Unknown - 11/17/2017 9:36 AM PDTFormatting of this note might be d ifferent from the original. Plan of Care by Jody Brown RN at 11/17/17935 Author: Jody Brown RN Service: (none) Author Type: Registered Nurse Filed: 11/17/17935 Date of Service: 11/17/17935 Status: Signed Hooking Machine Operator: Jody Brown RN (Registered Nurse) Problem: Pain Goal: LTG - Patient will manage pain with the appropriate technique/Intervention Outcome: Progressing Pt. Pain medication is reducing his pain and he is becoming more mobile. lan o f Care - Conversion Transaction, Provider Unknown - 11/17/2017 1:28 AM PDTFormatting of thi s note might be different from the original. Plan of Care by Juventino Velasco RN at 11/17/17127 Author: Juventino Velasco RN Service: (none) Author Type: Registered Nurse Filed: 11/17/17127 Date of Service: 11/17/17127 Status: Signed Hooking Machine Operator: Juventino Velasco RN (Registered Nurse) Problem: Bowel Elimination Goal: LTG - Patient will demonstrate appropriate Intervention for safe bowel elimination. Outcome: Progressing Patient with L BM this afternoon. He refused stool softener this evening stating that he d idn't need it. Patient appears to be resting peacefully at this time. lan o f Care - Conversion Transaction, Provider Unknown - 11/16/2017 9:42 AM PDTFormatting of thi s note might be different from the original. Plan of Care by Jody Brown RN at 11/16/17941 Author: Jody Brown RN Service: (none) Author Type: Registered Nurse Filed: 11/16/17941 Date of Service: 11/16/17941 Status: Signed Hooking Machine Operator: Jody Brown RN (Registered Nurse) Problem: Bowel Elimination Goal: LTG - Patient will demonstrate appropriate Intervention for safe bowel elimination. Outcome: Progressing Pt. Had bowel movement. lan o f Care - Conversion Transaction, Provider Unknown - 11/16/2017 12:11 AM PDTFormatting of thi s note might be different from the original. Plan of Care by Juventino Velasco RN at 11/16/1710 Author: Juventino Velasco RN Service: (none) Author Type: Registered Nurse Filed: 11/16/17 0011 Date of Service: 11/16/1710 Status: Signed Hooking Machine Operator: Juventino Velasco RN (Registered Nurse) Problem: Bowel Elimination Goal: LTG - Patient will demonstrate appropriate Intervention for safe bowel elimination. Outcome: Progressing Patient refused his stool softener this evening. Encouraged patient to use the call light for all care needs. Appears to be resting peacefully at this time. lan o f Care - Conversion Transaction, Provider Unknown - 11/15/2017 2:05 PM PDTFormatting of thi s note might be different from the original. Plan of Care by Naina Angeles RN at 11/15/17 1405 Author: Naina Angeles RN Service: (none) Author Type: Registered Nurse Filed: 11/15/17 1405 Date of Service: 11/15/17 1405 Status: Signed Hooking Machine Operator: Naina Angeles RN (Registered Nurse) Problem: Risk for Falls Goal: No falls during hospitalization Patient will not fall during hospitalization. Outcome: Progressing Needs reminders to call whenever wants to transfer out of bed iscNavdeep Dumont PT - 11/15/2017 10:05 AM PDT Treatment Plan by Navdeep Chisholm PT at 11/15/17 1005 Author: Navdeep Chisholm PT Service: (none) Author Type: Physical Therapist Filed: 11/15/17 9267 Date of Service: 11/15/17 1005 Status: Signed Hooking Machine Operator: Navdeep Chisholm PT (Physical Therapist) PHYSICAL THERAPY EVALUATION PT Received On: 11/15/17 Reason for Treatment: Other (comment) (S/p fall with T-12 compression fx, ) Requires PT Follow Up: Yes Follow up PT Only?: No PT Eval/Reassessment Date: 11/15/17 Assistance Required: 1 person Workforce Planning Analyst Needed: No Recommendations: IRF Equipment Recommended: (To be determined) Barriers to Discharge: Physical Deficits Impacting Functional Bryant, Self-care Defic its Impacting Functional Bryant, Pain Recommendation Comments: Pt is severely limited by pain in his mobility, continued pain man agment is a must for him for him to progress in therapy. Plan Treatment/Interventions: Bed mobility training, Balance training, Gait training, Monitor O2 sats, Provide HEP, Review precautions, Set goals, Stair training, Therapeutic exercise, Tra nsfer training, W/C training PT Frequency: 5-7x/wk Care Duration (# of days): 7 # of days Summary Comments: Chart reviewed: pt admit s/p fall with T-12 compression fx and deconditioning. Ev aluated pt PLOF, O&A, and mobility. Pt on 3L O2 90%, 88HR, and 124/74 BP. Thorughout eval pt demonstrated difficutly staying awake starting to nod off in bed. Pt req mod A for log roll ing tech, and A with trunk from sidelying to sitting. Demonstration for proper donning of TL SO, pt req A to thread 2nd arm into TLSO as well as tighten lumbar straps. Time req for kait ing pants. Pt stand piviot transfered to with use of quad cane to steady when standing, p t sits quickly and on side of chair req A to straighten up. Pt requesting use BR, time req f or toileting. Pt req max A during transfer and pt needing to sit prior to doffing pants and brief. Incotinent of bowel episoded in breif, HOSE SUSPENDER CUTTER A with pericare while PT stabilzed pt in s tanding. At end of session pt sitting in c with call light and needs in reach. Precautions Spinal Precautions: TLSO on when upright, Lumbar Other Precautions: fall risk; SpO2 >/=88%; pre-medicate for pain Cognition Overall Cognitive Status: Within Functional Limits Orientation Level: Oriented Oriented: x 4 Assessment of Patient Status Assessment of Patient Status: Decreased LE strength, Decreased functional mobility, Decrea sed ADL status, Decreased safety judgement during mobility, Pain, Decreased endurance Prognosis: Should progress with skilled therapy intervention Home Environment Type of Home: Home one story Home Exterior Layout: 1-3 steps (1 AICHA) Home Interior Layout: Lives on main level with bedroom/bathroom Bathroom Shower/Tub: Tub/shower unit Bathroom Toilet: Standard Bathroom Accessibility: Accessible via walker Home Equipment: Cane quad Prior Function Level of Bryant: Modified independent with functional mobility, Modified independent with ADLs, Modified independent with IADLs, Driving in community Falls in Past Year: Yes (Pt reports something slipped out of hand and he fell) Lives With: Alone Receives Help From: Supervisor Doping ADL Assistance: Independent Employment: Retired for age Leisure: Hobbies-yes (Comment) (Crafting baskets, ropes) Comments: Pt has hearing aids, but they are broken and curently getting fixed. 2L o2 at lorne e RUE Assessment: Within Functional Limits LUE Assessment: Within Functional Limits RLE Assessment: Exceptions to WFL LLE Assessment: Exceptions to WFL Sensation Light Touch: No apparent deficits Vision Current Vision: Wears glasses FUNCTIONAL MOBILITY Bed Mobility Rolling: Moderate assist Sidelying to Sit: Mod assist (BLEs OOB or trunk to upright) Scooting : Maximal assist Transfers Sit to/from Stand: Maximal assist (to arise AND lower) Stand Pivot Transfers: Maximal assist (to arise AND lower) Ambulation Maximal Ambulation Distance (feet): 3 Total Ambulation Distance (feet): 3 Ambulation Assistance: Moderate assist Distance limited by?: Patient's ability Pattern: Alternating, Decreased garland, Right swing foot doesn't pass stance foot, Left sw ing foot doesn't pass stance foot, Right dec toe clearance, Left dec toe clearance, Forward flexed Assistive Device: Other (Comment) (Hand hold) BALANCE Balance: Yes Static Standing Balance Static Standing-Balance Support: Right upper extremity support, Left upper extremity suppor t, Trunk support Static Standing-Level of Assistance: Maximal assist Static Standing-Comment/Duration: 2 min Activity Tolerance: Patient limited by pain, Patient limited by fatigue, Patient limited by shortness of breath (SOB) The patient reported pain rated at a 7/10. RN was notified. Other measures provided to reli newton pts pain included: Positioning and rest Education Completed: Education Topics: [x] Rationale for PT [] PT POC [] DC planning [x] Precautions [] Exercises [x] Bed mobility [x] Transfer training with hand placement [] Gait training [] Stair training [x] Use of gait belt [] Other Completed with: [x] Patient [] Spouse [] Significant other [] Family [] C aregiver [] Other Completed by: [x] Verbal education [] Demonstration [] Handout [] Other: Response to Education: [] Stated Understanding [x] Reinforcement necessary [] Returned demonstration [] Demonstrated understanding [] No evidence of learning [] Refused Physical Therapy Goals PT Goals Goal Formulation: With patient Pt Will Go Supine To Sit: With modified independence Pt Will Go Sit To Supine: With modified independence Pt Will Logroll: With modified independence Pt Will Transfer Sit to Stand: With modified independence Pt Will Transfer Bed/Chair: With modified independence Pt Will Ambulate: 50-100 feet Ambulate Level Assist: With modified independence Ambulate with Assistive Device: Least restricitve device Pt Will Go Up / Down Stairs: 1-2 stairs Stairs Level of Assist: With modified independence Low - 42722 Moderate - 39852 High - 78894 History [] no personal factors &/or comorbidities [] 1-2 personal factors &/or comorbiditi es [x] 3 or more personal factors &/or comorbidities Examination [] 1-2 elements [x] 3 elements [] 4 or more elements Clinical Presentation [] stable [] evolving [x] unstable Clinical Decision Making Complexity: [] Low 24675 [x] Moderate 80354 [] High 9 7163 lan of Care - Conversion Transaction, Provider Unknown - 11/15/2017 3:07 AM PDT Plan of Care by Juventino Velasco RN at 11/15/17306 Author: Juventino Velasco RN Service: (none) Author Type: Registered Nurse Filed: 11/15/17306 Date of Service: 11/15/17306 Status: Signed Hooking Machine Operator: Juventino Velasco RN (Registered Nurse) Problem: Risk for Falls Goal: No falls during hospitalization Patient will not fall during hospitalization. Outcome: Progressing Patient instructed to use the call light for any care needs. Bed alarm is on and call ligh t is within reach. lan o f Care - Conversion Transaction, Provider Unknown - 11/14/2017 5:44 PM PDTFormatting of thi s note might be different from the original. Plan of Care by Jessika Black RN at 11/14/17 122 Author: Jessika Black RN Service: (none) Author Type: Registered Nurse Filed: 11/14/17 2092 Date of Service: 11/14/171743 Status: Signed Hooking Machine Operator: Jessika Black RN (Registered Nurse) Problem: Bowel Elimination Goal: LTG - Patient will demonstrate appropriate Intervention for safe bowel elimination. Outcome: Not Progressing Pt felt that he needed to have a BM. Pt requested to use bedpan due to pain. Pt was unsuc cessful with BM. This RN instructed pt on importance of getting up to use BSC in the future , after we get pain controlled. iscel laneous - Conversion Transaction, Provider Unknown - 11/14/2017 3:07 PM PDTFormatting of th is note might be different from the original. Treatment Plan by SABAS Dahl/Gaby at 11/14/17 9772 Author: GURWINDER Dahl Service: (none) Author Type: Occupational Therapist Filed: 11/14/17 1550 Date of Service: 11/14/171506 Status: Signed Hooking Machine Operator: GURWINDER Dahl (Occupational Therapist) OCCUPATIONAL THERAPY EVALUATION OT Received On: 11/14/17 Reason for Treatment: Deconditioning Requires OT Follow Up: Awaiting tx order OT Eval/Reassessment Date: 11/14/17 Assistance Required: 1 person Workforce Planning Analyst Needed: No Family/Caregiver Present: No Recommendation: (Cont IPR) Requires OT Follow Up: Awaiting tx order Recommendation Comments Pt's VS's were stable during session, but pain levels were reported at 8/10. Deferred OOB activities until pain meds on board. Recommend pre-medicating pt prior to therapy sessions. Plan Treatment Interventions: ADL retraining, IADL retraining, Functional transfer training, Fun ctional dynamic activities, UE strengthening, Therapeutic exercises, Endurance training, Pat ient/Family training, Equipment eval/education Progress: (Initiate OT POC) OT Frequency: 4-6 x/wk (Q/BID) Care Duration (Days): 7 Days Requires OT Follow Up: Awaiting tx order Summary Pt is an 87 yo male admitted for CHF. Pt has a recent lumbar compression fx, acute at T12 and chronic at L1. Pt's hx significant for atrial fibrillation, heart disease, pulmonary hy pertension and elevated right hemidiaphragm coronary artery disease, hepatitis, hypertension , previous history of lumbar compression fracture, COPD. Pt's VS's were HR 62-75bpm, BP 128 /71, O2 91%. Chart reviewed, evaluation completed. Pt would continue to benefit from skill ed OT sevrices to address ADL's, functional mbility, IADL's and AE usage. Focus for next session: Caretool: Showering, toileting, dressing, oral hygiene, toilet tr ansfer, footwear, p/u item Follow up OT only? [] Yes [x] No Precautions Spinal Precautions: TLSO on when upright, Lumbar Other Precautions: fall risk; SpO2 >/=88%; pre-medicate for pain Home Environment Type of Home: Home one story Home Exterior Layout: 1-3 steps (1 AICHA) Home Interior Layout: Lives on main level with bedroom/bathroom Bathroom Shower/Tub: Tub/shower unit Bathroom Toilet: Standard Bathroom Accessibility: Accessible via walker Home Equipment: Cane quad Prior Function Level of Bryant: Modified independent with functional mobility, Modified independent with ADLs, Assist with IADLs, Driving in community Falls in Past Year: Yes Lives With: Alone Receives Help From: Supervisor Doping ADL Assistance: Independent Home ADL's: (Assistance provided by prisoner classification interviewer and son) Employment: Retired for age Leisure: Hobbies-yes (Comment) (crafts baskets) Comments: Pt reports being on 2L O2 at home within the last month. ADL Additional Comments: Pt awaiting pain meds, RN awaiting orders. Defer OOB activities d/t p ain levels reported at 8/10 at this time. Vision-Basic Assessment Current Vision: Wears glasses Cognition Overall Cognitive Status: Within Functional Limits Orientation Level: Oriented Oriented: x 4 Sensation Additional Comments: no reports numbness/tingling, pain reported R lower back. RUE Assessment: Within Functional Limits LUE Assessment: Within Functional Limits Hand Function Gross Grasp: Functional Assessment Assessment: Decreased ADL status, Decreased endurance, Decreased UE strength, Decreased elham f-care trans, Decreased high-level ADLs Prognosis: Good Activity Tolerance: Patient limited by pain Safety Devices in Place: Yes Type of Devices: Call lite in place, RN notified Occupational Therapy Goals ADL Goals Pt Will Perform Grooming: Standing at sink, With min assist (LTG: Supervision) Pt Will Perform Bathing: In shower/tub unit, With mod assist (LTG: Supervision) Pt Will Perform UE Dressing: At edge of bed, With mod assist (LTG: Supervisoin) Pt Will Perform LE Dressing: With mod assist, With adaptive equipment, At edge of bed (LTG: Supervision) LE Dressing Adaptive Equipment: Faculty Neuropsychologist, Sock aid, Dressing stick Functional Transfer Goals Pt Will Perform All Functional Transfers: With min assist, With assistive device (LTG: Supe rvision) Barriers to d/c at this time include: [] Home environment [] Family support [] Equipment needs [] Cognitive deficits impacting functional independence [x] Physical deficits impacting functional independence [x] Self-care deficits impacting functional independence [] Other Pain The patient did not demonstrate any signs of symptoms of pain throughout OT session The patient reported pain rated at a 8/10. RN was notified (Jessika) Other measures provided to relieve pts pain included: repositioning, RN notified of pain med request Education Completed: Education Topics: OT role, IPR policy Completed with: [x] Patient [] Spouse [] Significant other [] Family [] C aregiver [] Other Completed by :[x] Verbal education [] Demonstration [] Handout [] Other: Response to Education: [x] Stated Understanding [] Reinforcement necessary [] Returned demonstration [] Demonstrated understanding [] No evidence of learning [] Refused Low - 42041 Moderate - 69406 High - 67922 History [] Brief history including review of medical record [x] Expanded review of medica l records; additional review of physical, cognitive, or psychosocial skills [] Review of nm dical records; extensive additional review of physical, cognitive, or psychosocial skills Examination [] Identification of 1-3 performance deficits [x]Identification of 3-5 perfo rmance deficits [] Identification of 5 or more performance deficits Decision Making [] No comorbidities that affect occupational performance; modification of tasks or assistance is not needed to complete eval [x] May present with comorbidities; mini mal to moderate modification of tasks or assistance is needed to complete eval [] Presents with comorbidities; significant modification of tasks or assistance is needed to complete e eugenio Clinical Decision Making Complexity: [] Low 68621 [x] Moderate 55340 [] High [id number] docume nted in this encounter Plan of Treatment +--------+---------+ + + + | Date | Type | Specialty | Care Team | Description | +--------+---------+ + + + | 06/22/ | Office | Cardiology | Jody Lebron | | | 2019 | Visit | | [address] | | | | | | [address] | | | | | | [place] [address] | | | | | | [phone] | | | | | | | | +--------+---------+ + + + documented as of this encounter Procedures + +--------+ + + + | Procedure Name | Priori | Date/Time | Associated Diagnosis | Comments | | | ty | | | | + +--------+ + + + | LANGIME INR | Routin | 12/02/2017 | | Results for this | | | e | 5:44 AM | | procedure are in the | | | | PDT | | results section. | + +--------+ + + + | GERALDINE INR | Routin | 11/30/2017 | | Results for this | | | e | 6:27 AM | | procedure are in the | | | | PDT | | results section. | + +--------+ + + + | PROTIME INR | Routin | 11/28/2017 | | Results for this | | | e | 7:07 AM | | procedure are in the | | | | PDT | | results section. | + +--------+ + + + | PROTIME INR | Routin | 11/26/2017 | | Results for this | | | e | 6:06 AM | | procedure are in the | | | | PDT | | results section. | + +--------+ + + + | PROTIME INR | Routin | 11/25/2017 | | Results for this | | | e | 6:04 AM | | procedure are in the | | | | PDT | | results section. | + +--------+ + + + | DIGOXIN LEVEL | Routin | 11/23/2017 | | Results for this | | | e | 5:54 AM | | procedure are in the | | | | PDT | | results section. | + +--------+ + + + | PROTIME INR | Routin | 11/22/2017 | | Results for this | | | e | 6:04 AM | | procedure are in the | | | | PDT | | results section. | + +--------+ + + + | PROTIME INR | Routin | 11/21/2017 | | Results for this | | | e | 5:48 AM | | procedure are in the | | | | PDT | | results section. | + +--------+ + + + | PROTIME INR | Routin | 11/20/2017 | | Results for this | | | e | 5:44 AM | | procedure are in the | | | | PDT | | results section. | + +--------+ + + + | PROTIME INR | Routin | 11/19/2017 | | Results for this | | | e | 5:12 AM | | procedure are in the | | | | PDT | | results section. | + +--------+ + + + | PROTIME INR | Routin | 11/18/2017 | | Results for this | | | e | 5:36 AM | | procedure are in the | | | | PDT | | results section. | + +--------+ + + + | PROTIME INR | Routin | 11/17/2017 | | Results for this | | | e | 6:38 AM | | procedure are in the | | | | PDT | | results section. | + +--------+ + + + | PROTIME INR | Routin | 11/16/2017 | | Results for this | | | e | 4:41 AM | | procedure are in the | | | | PDT | | results section. | + +--------+ + + + | PROTIME INR | Routin | 11/15/2017 | | Results for this | | | e | 5:47 AM | | procedure are in the | | | | PDT | | results section. | + +--------+ + + + | URINALYSIS, REFLEX | Routin | 11/14/2017 | | Results for this | | MICROSCOPIC AND/OR | e | 7:06 PM | | procedure are in the | | CULTURE | | PDT | | results section. | + +--------+ + + + | CULTURE, URINE | Routin | 11/14/2017 | | Results for this | | | e | 7:06 PM | | procedure are in the | | | | PDT | | results section. | + +--------+ + + + documented in this encounter Results Protime INR (12/02/2017 5:44 AM PDT) + + + + + + | Component | Value | Ref Range | Performed | Pathologist | | | | | At | Signature | + + + + + + | INR | 4.8Comment: REFERENCE | | EXTERNAL | | | | RANGE:0.9 - 1.2 | | LAB | | | | NON-ANTICOAGULATED2.0 | | | | | | - 3.0 ALL OTHER | | | | | | THERAPEUTIC | | | | | | INDICATIONS2.5 - 3.5 | | | | | | MECHANICAL HEART VALVES, | | | | | | RECURRENT OR SYSTEMIC | | | | | | EMBOLISMTesting | | | | | | performed at [facility] | | | | | | [place] [facility];[place], [place] | | | | | | [address] | | | | + + + + + + + + | Specimen | + + | Blood specimen | | (specimen) | + + + +---------+ + + | Performing | Address | City/State/Zipcode | Phone Number | | Organization | | | | + +---------+ + + | EXTERNAL LAB | | | | + +---------+ + + Protime INR (11/30/2017 6:27 AM PDT) + + + + + + | Component | Value | Ref Range | Performed | Pathologist | | | | | At | Signature | + + + + + + | INR | 2.5Comment: REFERENCE | | EXTERNAL | | | | RANGE:0.9 - 1.2 | | LAB | | | | NON-ANTICOAGULATED2.0 | | | | | | - 3.0 ALL OTHER | | | | | | THERAPEUTIC | | | | | | INDICATIONS2.5 - 3.5 | | | | | | MECHANICAL HEART VALVES, | | | | | | RECURRENT OR SYSTEMIC | | | | | | EMBOLISMTesting | | | | | | performed at [facility] | | | | | | [address];[place], [place] | | | | | | [address] | | | | + + + + + + + + | Specimen | + + | Blood specimen | | (specimen) | + + + +---------+ + + | Performing | Address | City/State/Zipcode | Phone Number | | Organization | | | | + +---------+ + + | EXTERNAL LAB | | | | + +---------+ + + Langime INR (11/28/2017 7:07 AM PDT) + + + + + + | Component | Value | Ref Range | Performed | Pathologist | | | | | At | Signature | + + + + + + | INR | 1.8Comment: REFERENCE | | EXTERNAL | | | | RANGE:0.9 - 1.2 | | LAB | | | | NON-ANTICOAGULATED2.0 | | | | | | - 3.0 ALL OTHER | | | | | | THERAPEUTIC | | | | | | INDICATIONS2.5 - 3.5 | | | | | | MECHANICAL HEART VALVES, | | | | | | RECURRENT OR SYSTEMIC | | | | | | EMBOLISMTesting | | | | | | performed at [facility] | | | | | | [facility];[place], [place] | | | | | | [address] | | | | + + + + + + + + | Specimen | + + | Blood specimen | | (specimen) | + + + +---------+ + + | Performing | Address | City/State/Zipcode | Phone Number | | Organization | | | | + +---------+ + + | EXTERNAL LAB | | | | + +---------+ + + Protime INR (11/26/2017 6:06 AM PDT) + + + + + + | Component | Value | Ref Range | Performed | Pathologist | | | | | At | Signature | + + + + + + | INR | 1.9Comment: REFERENCE | | EXTERNAL | | | | RANGE:0.9 - 1.2 | | LAB | | | | NON-ANTICOAGULATED2.0 | | | | | | - 3.0 ALL OTHER | | | | | | THERAPEUTIC | | | | | | INDICATIONS2.5 - 3.5 | | | | | | MECHANICAL HEART VALVES, | | | | | | RECURRENT OR SYSTEMIC | | | | | | EMBOLISMTesting | | | | | | performed at [facility] | | | | | | [address];[place], [place] | | | | | | [address] | | | | + + + + + + + + | Specimen | + + | Blood specimen | | (specimen) | + + + +---------+ + + | Performing | Address | City/State/Zipcode | Phone Number | | Organization | | | | + +---------+ + + | EXTERNAL LAB | | | | + +---------+ + + Langime INR (11/25/2017 6:04 AM PDT) + + + + + + | Component | Value | Ref Range | Performed | Pathologist | | | | | At | Signature | + + + + + + | INR | 1.8Comment: REFERENCE | | EXTERNAL | | | | RANGE:0.9 - 1.2 | | LAB | | | | NON-ANTICOAGULATED2.0 | | | | | | - 3.0 ALL OTHER | | | | | | THERAPEUTIC | | | | | | INDICATIONS2.5 - 3.5 | | | | | | MECHANICAL HEART VALVES, | | | | | | RECURRENT OR SYSTEMIC | | | | | | EMBOLISMTesting | | | | | | performed at [facility] | | | | | | [facility];[place], [place] | | | | | | [address] | | | | + + + + + + + + | Specimen | + + | Blood specimen | | (specimen) | + + + +---------+ + + | Performing | Address | City/State/Zipcode | Phone Number | | Organization | | | | + +---------+ + + | EXTERNAL LAB | | | | + +---------+ + + Digoxin Level (11/23/2017 5:54 AM PDT) + + + + + + | Component | Value | Ref Range | Performed | Pathologist | | | | | At | Signature | + + + + + + | Date of | UNKNOWNComment: Testing | | EXTERNAL | | | Last Dose | performed at [facility] | | LAB | | | | [address];[place] | | | | | | [address] | | | | + + + + + + | Time of | UNKNOWNComment: Testing | | EXTERNAL | | | Last Dose | performed at [facility];[address] | | LAB | | | | [address];[place] | | | | | | [address] | | | | + + + + + + | Digoxin | 1.3Comment: Testing | 0.90 - 2.00 | EXTERNAL | | | level | performed at [facility], [address] | ng/mL | LAB | | | | [address], | | | | | | [place] [address] | | | | + + + + + + + + | Specimen | + + | Blood specimen | | (specimen) | + + + +---------+ + + | Performing | Address | City/State/Zipcode | Phone Number | | Organization | | | | + +---------+ + + | EXTERNAL LAB | | | | + +---------+ + + Protime INR (11/22/2017 6:04 AM PDT) + + + + + + | Component | Value | Ref Range | Performed | Pathologist | | | | | At | Signature | + + + + + + | INR | 2.5Comment: REFERENCE | | EXTERNAL | | | | RANGE:0.9 - 1.2 | | LAB | | | | NON-ANTICOAGULATED2.0 | | | | | | - 3.0 ALL OTHER | | | | | | THERAPEUTIC | | | | | | INDICATIONS2.5 - 3.5 | | | | | | MECHANICAL HEART VALVES, | | | | | | RECURRENT OR SYSTEMIC | | | | | | EMBOLISMTesting | | | | | | performed at [facility] | | | | | | [address];[place], [place] | | | | | | [address] | | | | + + + + + + + + | Specimen | + + | Blood specimen | | (specimen) | + + + +---------+ + + | Performing | Address | City/State/Zipcode | Phone Number | | Organization | | | | + +---------+ + + | EXTERNAL LAB | | | | + +---------+ + + Protime INR (11/21/2017 5:48 AM PDT) + + + + + + | Component | Value | Ref Range | Performed | Pathologist | | | | | At | Signature | + + + + + + | INR | 2.7Comment: REFERENCE | | EXTERNAL | | | | RANGE:0.9 - 1.2 | | LAB | | | | NON-ANTICOAGULATED2.0 | | | | | | - 3.0 ALL OTHER | | | | | | THERAPEUTIC | | | | | | INDICATIONS2.5 - 3.5 | | | | | | MECHANICAL HEART VALVES, | | | | | | RECURRENT OR SYSTEMIC | | | | | | EMBOLISMTesting | | | | | | performed at [facility] | | | | | | [facility];[place] | | | | | | [address] | | | | + + + + + + + + | Specimen | + + | Blood specimen | | (specimen) | + + + +---------+ + + | Performing | Address | City/State/Zipcode | Phone Number | | Organization | | | | + +---------+ + + | EXTERNAL LAB | | | | + +---------+ + + Protime INR (11/20/2017 5:44 AM PDT) + + + + + + | Component | Value | Ref Range | Performed | Pathologist | | | | | At | Signature | + + + + + + | INR | 2.6Comment: REFERENCE | | EXTERNAL | | | | RANGE:0.9 - 1.2 | | LAB | | | | NON-ANTICOAGULATED2.0 | | | | | | - 3.0 ALL OTHER | | | | | | THERAPEUTIC | | | | | | INDICATIONS2.5 - 3.5 | | | | | | MECHANICAL HEART VALVES, | | | | | | RECURRENT OR SYSTEMIC | | | | | | EMBOLISMTesting | | | | | | performed at [facility] | | | | | | [place] [facility];[place], [place] | | | | | | [address] | | | | + + + + + + + + | Specimen | + + | Blood specimen | | (specimen) | + + + +---------+ + + | Performing | Address | City/State/Zipcode | Phone Number | | Organization | | | | + +---------+ + + | EXTERNAL LAB | | | | + +---------+ + + Protime INR (11/19/2017 5:12 AM PDT) + + + + + + | Component | Value | Ref Range | Performed | Pathologist | | | | | At | Signature | + + + + + + | INR | 1.8Comment: REFERENCE | | EXTERNAL | | | | RANGE:0.9 - 1.2 | | LAB | | | | NON-ANTICOAGULATED2.0 | | | | | | - 3.0 ALL OTHER | | | | | | THERAPEUTIC | | | | | | INDICATIONS2.5 - 3.5 | | | | | | MECHANICAL HEART VALVES, | | | | | | RECURRENT OR SYSTEMIC | | | | | | EMBOLISMTesting | | | | | | performed at [facility];[address] | | | | | | [address];[place] | | | | | | [address] | | | | + + + + + + + + | Specimen | + + | Blood specimen | | (specimen) | + + + +---------+ + + | Performing | Address | City/State/Zipcode | Phone Number | | Organization | | | | + +---------+ + + | EXTERNAL LAB | | | | + +---------+ + + Protime INR (11/18/2017 5:36 AM PDT) + + + + + + | Component | Value | Ref Range | Performed | Pathologist | | | | | At | Signature | + + + + + + | INR | 1.2Comment: REFERENCE | | EXTERNAL | | | | RANGE:0.9 - 1.2 | | LAB | | | | NON-ANTICOAGULATED2.0 | | | | | | - 3.0 ALL OTHER | | | | | | THERAPEUTIC | | | | | | INDICATIONS2.5 - 3.5 | | | | | | MECHANICAL HEART VALVES, | | | | | | RECURRENT OR SYSTEMIC | | | | | | EMBOLISMTesting | | | | | | performed at [facility];[address] | | | | | | [facility];[place], [place] | | | | | | [address] | | | | + + + + + + + + | Specimen | + + | Blood specimen | | (specimen) | + + + +---------+ + + | Performing | Address | City/State/Zipcode | Phone Number | | Organization | | | | + +---------+ + + | EXTERNAL LAB | | | | + +---------+ + + Protime INR (11/17/2017 6:38 AM PDT) + + + + + + | Component | Value | Ref Range | Performed | Pathologist | | | | | At | Signature | + + + + + + | INR | 1.3Comment: REFERENCE | | EXTERNAL | | | | RANGE:0.9 - 1.2 | | LAB | | | | NON-ANTICOAGULATED2.0 | | | | | | - 3.0 ALL OTHER | | | | | | THERAPEUTIC | | | | | | INDICATIONS2.5 - 3.5 | | | | | | MECHANICAL HEART VALVES, | | | | | | RECURRENT OR SYSTEMIC | | | | | | EMBOLISMTesting | | | | | | performed at [facility] | | | | | | [facility];[place], [place] | | | | | | [address] | | | | + + + + + + + + | Specimen | + + | Blood specimen | | (specimen) | + + + +---------+ + + | Performing | Address | City/State/Zipcode | Phone Number | | Organization | | | | + +---------+ + + | EXTERNAL LAB | | | | + +---------+ + + Protime INR (11/16/2017 4:41 AM PDT) + + + + + + | Component | Value | Ref Range | Performed | Pathologist | | | | | At | Signature | + + + + + + | INR | 1.7Comment: REFERENCE | | EXTERNAL | | | | RANGE:0.9 - 1.2 | | LAB | | | | NON-ANTICOAGULATED2.0 | | | | | | - 3.0 ALL OTHER | | | | | | THERAPEUTIC | | | | | | INDICATIONS2.5 - 3.5 | | | | | | MECHANICAL HEART VALVES, | | | | | | RECURRENT OR SYSTEMIC | | | | | | EMBOLISMTesting | | | | | | performed at [facility];[address] | | | | | | [address];[place], [place] | | | | | | [address] | | | | + + + + + + + + | Specimen | + + | Blood specimen | | (specimen) | + + + +---------+ + + | Performing | Address | City/State/Zipcode | Phone Number | | Organization | | | | + +---------+ + + | EXTERNAL LAB | | | | + +---------+ + + Geraldine WOODWARD (11/15/2017 5:47 AM PDT) + + + + + + | Component | Value | Ref Range | Performed | Pathologist | | | | | At | Signature | + + + + + + | INR | 2.2Comment: REFERENCE | | EXTERNAL | | | | RANGE:0.9 - 1.2 | | LAB | | | | NON-ANTICOAGULATED2.0 | | | | | | - 3.0 ALL OTHER | | | | | | THERAPEUTIC | | | | | | INDICATIONS2.5 - 3.5 | | | | | | MECHANICAL HEART VALVES, | | | | | | RECURRENT OR SYSTEMIC | | | | | | EMBOLISMTesting | | | | | | performed at [facility] | | | | | | [place] [facility];[place], [place] | | | | | | [address] | | | | + + + + + + + + | Specimen | + + | Blood specimen | | (specimen) | + + + +---------+ + + | Performing | Address | City/State/Zipcode | Phone Number | | Organization | | | | + +---------+ + + | EXTERNAL LAB | | | | + +---------+ + + Culture, Urine (11/14/2017 7:06 PM PDT) + + | Specimen | + + | | + + + + + | Narrative | Performed At | + + + | Specimen Description URINE, COLLECTION NOT | EXTERNAL LAB | | GIVEN CULTURE >100,000 | | | CFU/ML | | | ENTEROCOCCUS FAECALISAbnormal | | | Aminoglycosides (except for high-level resistance | | | testing), cephalosporins, clindamycin, and | | | trimethoprim-sulfamethoxazole may appear active in vitro but they are | | | not effective clinically. Suscepibility for - ENTEROCOCCUS | | | FAECALIS Ampicillin SUSCEPTIBLESensitive | | | Penicillin G SUSCEPTIBLESensitive | | | Gentamicin Synergy SUSCEPTIBLESensitive Levofloxacin | | | SUSCEPTIBLESensitive Nitrofurantoin | | | SUSCEPTIBLESensitive Streptomycin Synergy | | | SUSCEPTIBLESensitive Tetracycline | | | RESISTANT Resistant Vancomycin | | | SUSCEPTIBLESensitive | | + + + + +---------+ + + | Performing | Address | City/State/Zipcode | Phone Number | | Organization | | | | + +---------+ + + | EXTERNAL LAB | | | | + +---------+ + + Urinalysis, Reflex Microscopic and/or Culture (11/14/2017 7:06 PM PDT) + + + + + + | Component | Value | Ref Range | Performed | Pathologist | | | | | At | Signature | + + + + + + | Color | YELLOW | | EXTERNAL | | | | | | LAB | | + + + + + + | Clarity, | HAZY | | EXTERNAL | | | Urine | | | LAB | | + + + + + + | Specific | 1.015 | 1.002 - 1.030 | EXTERNAL | | | [place], | | | LAB | | | Urine | | | | | + + + + + + | Leukocyte | LARGE (A) | | EXTERNAL | | | Esterase, | | | LAB | | | Urine | | | | | + + + + + + | Nitrite, | NEGATIVE | | EXTERNAL | | | Urine | | | LAB | | + + + + + + | Urobilinoge | 4.0 (H) | mg/dL | EXTERNAL | | | n, Urine | | | LAB | | + + + + + + | Protein, | NEGATIVE | mg/dL | EXTERNAL | | | Urine | | | LAB | | + + + + + + | pH, Urine | 6.0 | 5.0 - 8.0 | EXTERNAL | | | | | | LAB | | + + + + + + | Blood, | MODERATE (A) | | EXTERNAL | | | Urine | | | LAB | | + + + + + + | Ketones | NEGATIVE | mg/dL | EXTERNAL | | | | | | LAB | | + + + + + + | Bilirubin, | SMALL (A) | | EXTERNAL | | | Urine | | | LAB | | + + + + + + | Glucose, | NEGATIVE | mg/dL | EXTERNAL | | | Urine | | | LAB | | + + + + + + | WBC, UA | 50-100 | 0 - 5 /hpf | EXTERNAL | | | | | | LAB | | + + + + + + | RBC, UA | 26-49 | 0 - 2 /hpf | EXTERNAL | | | | | | LAB | | + + + + + + | Bacteria, | NONE SEEN | | EXTERNAL | | | UA | | | LAB | | + + + + + + | Epithelial | NONE SEEN | /lpf | EXTERNAL | | | Cells | | | LAB | | + + + + + + | Mucus, | 1+ | | EXTERNAL | | | Urine | | | LAB | | + + + + + + | HYALINE | 0-2Comment: Testing | | EXTERNAL | | | CASTS UA | performed at [facility];[address] | | LAB | | | | [address];[place] | | | | | | [address] | | | | + + + + + + + + | Specimen | + + | | + + + +---------+ + + | Performing | Address | City/State/Zipcode | Phone Number | | Organization | | | | + +---------+ + + | EXTERNAL LAB | | | | + +---------+ + + documented in this encounter Visit Diagnoses Not on filedocumented in this encounter
--- OUTSIDE RECORDS SUMMARY | ~2020-02-22 | XMS | Encounter Summary ---
Demographics + + + | Address | [address] | | | [place] [address] | + + + | Home Phone | | + + + | Preferred Language | Unknown | + + + | Marital Status | | + + + | Gnosticist Affiliation | 1077 | + + + | Race | White | + + + | Ethnic Group | Not or | + + + Author + + + | Author | [facility] | | | and [place] | + + + | Organization | [facility] | | | [...] | Unknown | | | in [facility]) | | | | + + +---------+ + Care Team Providers + +------+ + | Care General Milling Superintendent Name | Role | Phone | + +------+ + PCP | Unavailable | + +------+ + Encounter Details +--------+ + + + + | Date | Type | Department | Care Team | Description | +--------+ + + + + | 09/08/ | Hospital | [facility] | Conversion | Diagnosis unknown | | 2018 | Encounter | CONVERSION [address] | Transaction, | | | | | [address] | Provider Unknown | | | | | [place], [place] | | | | | | [phone] | (Fax) | | | | | [phone] | | | +--------+ + + + [...] TERAN | | | | | | [place] [address] | | | | | | [phone] | | | | | | | | +--------+---------+ + + + documented as of this encounter Procedures + +--------+ + + + | Procedure Name | Priori | Date/Time | Associated Diagnosis | Comments | | | ty | | | | + +--------+ + + + | XR CHEST 2 VIEWS | Routin | 08/15/2008 | | Results for this | | | e | 5:12 PM | | procedure are in the | | | | PST | | results section. | + +--------+ + + + documented in this encounter Results XR Chest 2 Vws (08/15/2008 5:12 PM PST) + + | Specimen | + + | | + + + + + | Narrative | Performed At | + + + | This is a non-reportable procedure without a radiologist report and | | | is used for image storage only | | + + + + + | Procedure Note | + + | Armando Rdz - 02/17/2019 5:56 AM PDT This is a non-reportable procedure | | without a radiologist report and isused for image storage only | + + documented in this encounter Visit Diagnoses + + | Diagnosis | + + | Diagnosis unknown Other unknown and unspecified cause of morbidity or mortality | + + documented in this encounter"
--- OUTSIDE RECORDS SUMMARY | ~2020-02-22 | XMS | Encounter Summary ---
Demographics + + + | Address | [address] | | | [place] [address] | + + + | Home Phone | | + + + | Preferred Language | Unknown | + + + | Marital Status | | + + + | Congregational Affiliation | 1077 | + + + | Race | White | + + + | Ethnic Group | Not or | + + + Author + + + | Author | [facility] | | | and [place] | + + + | Organization | [facility] | | | and [place] | + + + | Address | Unknown | + + + | Phone | Unavailable | + + + Support + + +---------+ + | Name | Relationship | Address | Phone | + + +---------+ + | Blayne Marti | ECON | Unknown | | + + +---------+ + | Dora Marti (Daughter | ECON | Unknown | | | in [facility]) | | | | + + +---------+ + Care Team Providers + +------+ + | Care Methods Analyst Name | Role | Phone | + +------+ + | Nalini Jones MD | PCP | | + +------+ + Encounter Details +--------+ + + + + | Date | Type | Department | Care Team | Description | +--------+ + + + + | 08/22/ | Orders Only | [facility] | Enzo Knox Levi, | | | 2016 | | MUNDO [address]S | [address] | | | | | [address] | [place] [address] | | | | | [place], [place] | [phone] | | | | | [address] | | | | | | [phone] | | | +--------+ + + + [...] | 06/22/ | Office | Cardiology | NaylexyJody | | | 2019 | Visit | | [address] | | | | | | [address] | | | | | | [place] [address] | | | | | | [phone] | | | | | | | | +--------+---------+ + + + documented as of this encounter Procedures + +--------+ + + + | Procedure Name | Priori | Date/Time | Associated Diagnosis | Comments | | | ty | | | | + +--------+ + + + | ECHO COMPLETE | Routin | 08/22/2016 | | Results for this | | | e | 3:10 PM | | procedure are in the | | | | PST | | results section. | + +--------+ + + + documented in this encounter Results ECHO Complete (08/22/2016 3:10 PM PST) + + | Specimen | + + | | + + + + + | Impressions | Performed At | + + + | 1. Overall left ventricular systolic function is normal with, an EF | | | between 55 - 60 %. 2. There is mild concentric left ventricular | | | hypertrophy. 3. Pseudonormal LV diastolic filling pattern, consistent | | | with elevated LA pressure and moderate dysfunction (Grade II). 4. | | | There is mild aortic regurgitation. 5. Dmrm-nd-xbzsxilo tricuspid | | | regurgitation present. 6. There is moderate pulmonary hypertension. | | | 7. 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 | | + + + + + + | Narrative | Performed At | + + + | Patient Name: RUDY MARTI Date of : 1930 | | | Performing Physician: Enzo Knox MD, | | | FACC, FACP, FASNC | | | | | | INDICATIONS A-Fib CONCLUSIONS 1. | | | Overall left ventricular systolic function is normal with, an EF | | | between 55 - 60 %. 2. There is mild concentric left ventricular | | | hypertrophy. 3. Pseudonormal LV diastolic filling pattern, consistent | | | with elevated LA pressure and moderate dysfunction (Grade II). 4. | | | There is mild aortic regurgitation. 5. Slaz-kt-iyayjvkq tricuspid | | | regurgitation present. 6. There is moderate pulmonary hypertension. | | | 7. 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 FINDINGS -------- ECG rhythm: Atrial fibrillation. Study: A | | | 2-dimensional transthoracic echocardiogram with m-mode, spectral and | | | color flow Doppler was perfomed. Study: This was a technically | | | adequate study. Left Ventricle: Overall left ventricular systolic | | | function is normal with, an EF between 55 - 60 %. Left Ventricle: The | | | left ventricle cavity size is normal. Left Ventricle: There is mild | | | concentric left ventricular hypertrophy. Left Ventricle: No regional | | | wall motion abnormalities. Left Ventricle: Pseudonormal LV diastolic | | | filling pattern, consistent with elevated LA pressure and moderate | | | dysfunction (Grade II). Right Ventricle: The right ventricle is | | | moderately enlarged measuring between 3.8 - 4.1 cm. Left Atrium: The | | | left atrium is markedly enlarged. Right Atrium: The right atrium is | | | markedly enlarged. Aortic Valve: The aortic valve is trileaflet and | | | appears structurally normal. Aortic Valve: There is mild aortic | | | regurgitation. Aortic Valve: There is no evidence of aortic stenosis. | | | Mitral Valve: The mitral valve is normal. Mitral Valve: Mild mitral | | | regurgitation is present. Tricuspid Valve: The tricuspid valve | | | appears structurally normal. Tricuspid Valve: Qbzf-lb-ealxrgby | | | tricuspid regurgitation present. Tricuspid Valve: There is moderate | | | pulmonary hypertension. Tricuspid Valve: The right ventricular | | | systolic pressure (pulmonary artery systolic pressure), as measured by | | | Doppler, is 51.16mmHg. Pulmonic Valve: The pulmonic valve is normal. | | | Pulmonic Valve: Trace pulmonic regurgitation. Pericardium: There | | | is no pericardial effusion. IVC/Hepatic Veins: The IVC is dilated | | | (>2.5cm) and collapses about 50% with sniff, consistent with central | | | venous pressures of 10 mmHg. Aorta: The aortic root and ascending | | | aorta are dilated measuring up to 42 mm. Mass: No mass visualized | | | Thrombus: No clot visualized Thrombus: No vegetation visualized. | | | Septum: No ASD observed. Septum: No VSD observed. MEASUREMENTS | | | Ao asc: 4.[address] junct: 3.71 cm IVC: | | | 2.86 cm LA Major: 7.78 cm EDV(Teich): 120.84 ml IVSd: 1.09 | | | cm LVIDd: 5.04 cm LVPWd: 1.18 cm LVOT Area: 4.13 cm2 | | | LVOT Diam: 2.29 cm %FS: 27.04 % EF(Teich): 52.44 % | | | ESV(Teich): 57.46 ml LVIDs: 3.68 cm SV(Teich): 63.38 ml RA | | | Major: 6.86 cm RV Major: 8.29 cm RVIDd: 3.97 cm Ao Root: | | | 4.16 cm Ao Diam SVals: 3.96 cm LVEF MOD A2C: 60.57 % SV | | | MOD A2C: 70.67 ml LVEF MOD A4C: 54.70 % SV MOD A4C: 51.30 | | | ml EF Biplane: 58.10 % LVEDV MOD BP: 99.73 ml LVESV MOD BP: | | | 41.78 ml LVEDV MOD A2C: 116.67 ml LVLd A2C: 7.99 cm LVEDV | | | MOD A4C: 93.78 ml LVLd A4C: 8.03 cm LVESV MOD A2C: 45.99 ml | | | LVLs A2C: 6.94 cm LVESV MOD A4C: 42.47 ml LVLs A4C: 6.71 | | | cm LAESV(A-L): 203.10 ml LAESV Index (A-L): 102.57 ml/m2 LAAs | | | A2C: 45.30 cm2 LAESV A-L A2C: 225.05 ml LALs A2C: 7.74 cm | | | LAAs A4C: 38.88 cm2 LAESV A-L A4C: 174.31 ml LALs A4C: | | | 7.36 cm RAAs: 35.04 cm2 RAESV A-L: 143.71 ml RAESV MOD: | | | 141.58 ml RALs: 7.25 cm Ao Diam: 4.13 cm LA Diam: 6.87 cm | | | LA/Ao: 1.66 AV maxP.96 mmHg AV meanP.07 mmHg AV | | | Vmax: 1.31 m/s AV Vmean: 0.81 m/s AV VTI: 18.10 cm EFRAÍN | | | Vmax: 2.56 cm2 EFRAÍN (VTI): 2.88 cm2 LVOT maxP.69 mmHg | | | LVOT meanP.30 mmHg LVSI Dopp: 26.36 ml/m2 LVSV Dopp: | | | 52.19 ml LVOT Vmax: 0.81 m/s LVOT Vmean: 0.52 m/s LVOT VTI: | | | 12.61 cm MV A Kehinde: 0.00 m/s MV Dec Manati: 8.21 m/s2 MV | | | DecT: 114.96 ms MV E Kehinde: 0.94 m/s MV E/A Ratio: 927.06 MV | | | PHT: 33.34 ms MVA By PHT: 6.59 cm2 Septal e': 0.08 m/s | | | Septal E/e': 11.30 Lateral e': 0.12 m/s Lateral E/e': 7.73 | | | RAP: 10 mmHg RVSP: 51.15 mmHg TR maxP.15 mmHg TR | | | Vmax: 3.20 m/s Performance Solutions Specialist: MAURICIO Authenticated by: Enzo | | | Abilio BHAKTA, FACC, FACP, FASBENITO Report Date/Time: 08-23-2016 14:29:04 | | + + + + + | Procedure Note | + + | [facility] Rad Conversion - 02/25/2019 7:08 PM PDT Patient Name: Carlos MARTI of | | : 1930 Performing Physician: Enzo Knox MD, FACC, | | FACP, | | FASNC INDICATIONS--------- | | --A-Fib CONCLUSIONS 1. Overall left ventricular systolic function is normal | | with, an EF between 55 - 60 %.2. There is mild concentric left ventricular | | hypertrophy.3. Pseudonormal LV diastolic filling pattern, consistent with elevated LA | | pressure and moderate dysfunction (Grade II).4. There is mild aortic regurgitation.5. | | Ftrg-hj-fpioftvv tricuspid regurgitation present.6. There is moderate pulmonary | | hypertension.7. 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 | | FINDINGS--------ECG rhythm: Atrial fibrillation.Study: A 2-dimensional transthoracic | | echocardiogram with m-mode, spectral and color flow Doppler was perfomed.Study: This was | | a technically adequate study.Left Ventricle: Overall left ventricular systolic function | | is normal with, an EF between 55 - 60 %.Left Ventricle: The left ventricle cavity size | | is normal.Left Ventricle: There is mild concentric left ventricular hypertrophy.Left | | Ventricle: No regional wall motion abnormalities.Left Ventricle: Pseudonormal LV | | diastolic filling pattern, consistent with elevated LA pressure and moderate dysfunction | | (Grade II).Right Ventricle: The right ventricle is moderately enlarged measuring | | between 3.8 - 4.1 cm.Left Atrium: The left atrium is markedly enlarged.Right Atrium: The | | right atrium is markedly enlarged.Aortic Valve: The aortic valve is trileaflet and | | appears structurally normal.Aortic Valve: There is mild aortic regurgitation.Aortic | | Valve: There is no evidence of aortic stenosis.Mitral Valve: The mitral valve is | | normal.Mitral Valve: Mild mitral regurgitation is present.Tricuspid Valve: The tricuspid | | valve appears structurally normal.Tricuspid Valve: Tynz-fj-sbgivcws tricuspid | | regurgitation present.Tricuspid Valve: There is moderate pulmonary | | hypertension.Tricuspid Valve: The right ventricular systolic pressure (pulmonary artery | | systolic pressure), as measured by Doppler, is 51.16mmHg.Pulmonic Valve: The pulmonic | | valve is normal.Pulmonic Valve: Trace pulmonic regurgitation.Pericardium: There is no | | pericardial effusion.IVC/Hepatic Veins: The IVC is dilated (>2.5cm) and collapses about | | 50% with sniff, consistent with central venous pressures of 10 mmHg.Aorta: The aortic | | root and ascending aorta are dilated measuring up to 42 mm.Mass: No mass | | visualizedThrombus: No clot visualizedThrombus: No vegetation visualized.Septum: No ASD | | observed.Septum: No VSD observed. MEASUREMENTS Ao asc: 4.[address] junct: | | 3.71 cmIVC: 2.86 cmLA Major: 7.78 cmEDV(Teich): 120.84 mlIVSd: 1.09 cmLVIDd: | | 5.04 cmLVPWd: 1.18 cmLVOT Area: 4.13 tu8OBEL Diam: 2.29 cm%FS: 27.04 | | %EF(Teich): 52.44 %ESV(Teich): 57.46 mlLVIDs: 3.68 cmSV(Teich): 63.38 mlRA | | Major: 6.86 cmRV Major: 8.29 cmRVIDd: 3.97 cmAo Root: 4.16 cmAo Diam SVals: | | 3.96 cmLVEF MOD A2C: 60.57 %SV MOD A2C: 70.67 mlLVEF MOD A4C: 54.70 %SV MOD A4C: | | 51.30 mlEF Biplane: 58.10 %LVEDV MOD BP: 99.73 mlLVESV MOD BP: 41.78 mlLVEDV MOD | | A2C: 116.67 mlLVLd A2C: 7.99 cmLVEDV MOD A4C: 93.78 mlLVLd A4C: 8.03 cmLVESV MOD | | A2C: 45.99 mlLVLs A2C: 6.94 cmLVESV MOD A4C: 42.47 mlLVLs A4C: 6.71 | | cmLAESV(A-L): 203.10 mlLAESV Index (A-L): 102.57 ml/m2LAAs A2C: 45.30 [id number] A-L | | A2C: 225.05 mlLALs A2C: 7.74 cmLAAs A4C: 38.88 [id number] A-L A4C: 174.31 mlLALs | | A4C: 7.36 cmRAAs: 35.04 [id number] A-L: 143.71 mlRAESV MOD: 141.58 mlRALs: 7.25 | | cmAo Diam: 4.13 cmLA Diam: 6.87 cmLA/Ao: 1.66AV maxP.96 mmHgAV meanPG: | | 3.07 mmHgAV Vmax: 1.31 m/Roxy Vmean: 0.81 m/Roxy VTI: 18.10 cmAVA Vmax: 2.56 | | cm2AVA (VTI): 2.88 [id number] maxP.69 mmHgLVOT meanP.30 mmHgLVSI Dopp: | | 26.36 ml/m2LVSV Dopp: 52.19 mlLVOT Vmax: 0.81 m/sLVOT Vmean: 0.52 m/sLVOT VTI: | | 12.61 cmMV A Kehinde: 0.00 m/sMV Dec Manati: 8.21 m/s2MV DecT: 114.96 msMV E Kehinde: | | 0.94 m/sMV E/A Ratio: 927.06MV PHT: 33.34 msMVA By PHT: 6.59 cx1Jbqewz e': 0.08 | | m/sSeptal E/e': 11.30Lateral e': 0.12 m/sLateral E/e': 7.73RAP: 10 mmHgRVSP: | | 51.15 mmHgTR maxP.15 mmHgTR Vmax: 3.20 m/s Performance Solutions Specialist: DHAuthenticated by: | | Enzo Knox MD, FACC, FACP, FASNCReport Date/Time: 08-23-2016 14:29:04 IMPRESSION: 1. | | Overall left ventricular systolic function is normal with, an EF between 55 - 60 %.2. | | There is mild concentric left ventricular hypertrophy.3. Pseudonormal LV diastolic | | filling pattern, consistent with elevated LA pressure and moderate dysfunction (Grade | | II).4. There is mild aortic regurgitation.5. Mkfx-es-tglgeuth tricuspid regurgitation | | present.6. There is moderate pulmonary hypertension.7. The aortic root and ascending | | aorta are dilated measuring up to 42 mm. | |IVC: 2.86 cm | |LA Major: 7.78 cm | |EDV(Teich): 120.84 ml | |IVSd: 1.09 cm | |LVIDd: 5.04 cm | |LVPWd: 1.18 cm | |LVOT Area: 4.13 cm2 | |LVOT Diam: 2.29 cm | |%FS: 27.04 % | |EF(Teich): 52.44 % | |ESV(Teich): 57.46 ml | |LVIDs: 3.68 cm | |SV(Teich): 63.38 ml | |RA Major: 6.86 cm | |RV Major: 8.29 cm | |RVIDd: 3.97 cm | |Ao Root: 4.16 cm | |Ao Diam SVals: 3.96 cm | |LVEF MOD A2C: 60.57 % | |SV MOD A2C: 70.67 ml | |LVEF MOD A4C: 54.70 % | |SV MOD A4C: 51.30 ml | |EF Biplane: 58.10 % | |LVEDV MOD BP: 99.73 ml | |LVESV MOD BP: 41.78 ml | |LVEDV MOD A2C: 116.67 ml | |LVLd A2C: 7.99 cm | |LVEDV MOD A4C: 93.78 ml | |LVLd A4C: 8.03 cm | |LVESV MOD A2C: 45.99 ml | |LVLs A2C: 6.94 cm | |LVESV MOD A4C: 42.47 ml | |LVLs A4C: 6.71 cm | |LAESV(A-L): 203.10 ml | |LAESV Index (A-L): 102.57 ml/m2 | |LAAs A2C: 45.30 cm2 | |LAESV A-L A2C: 225.05 ml | |LALs A2C: 7.74 cm | |LAAs A4C: 38.88 cm2 | |LAESV A-L A4C: 174.31 ml | |LALs A4C: 7.36 cm | |RAAs: 35.04 cm2 | |RAESV A-L: 143.71 ml | |RAESV MOD: 141.58 ml | |RALs: 7.25 cm | |Ao Diam: 4.13 cm | |LA Diam: 6.87 cm | |LA/Ao: 1.66 | |AV maxP.96 mmHg | |AV meanP.07 mmHg | |AV Vmax: 1.31 m/s | |AV Vmean: 0.81 m/s | |AV VTI: 18.10 cm | |EFRAÍN Vmax: 2.56 cm2 | |EFRAÍN (VTI): 2.88 cm2 | |LVOT maxP.69 mmHg | |LVOT meanP.30 mmHg | |LVSI Dopp: 26.36 ml/m2 | |LVSV Dopp: 52.19 ml | |LVOT Vmax: 0.81 m/s | |LVOT Vmean: 0.52 m/s | |LVOT VTI: 12.61 cm | |MV A Kehinde: 0.00 m/s | |MV Dec Manati: 8.21 m/s2 | |MV DecT: 114.96 ms | |MV E Kehinde: 0.94 m/s | |MV E/A Ratio: 927.06 | |MV PHT: 33.34 ms | |MVA By PHT: 6.59 cm2 | |Septal e': 0.08 m/s | |Septal E/e': 11.30 | |Lateral e': 0.12 m/s | |Lateral E/e': 7.73 | |RAP: 10 mmHg | |RVSP: 51.15 mmHg | |TR maxP.15 mmHg | |TR Vmax: 3.20 m/s | | | |Performance Solutions Specialist: | |Authenticated by: Enzo Knox MD, FACC, FACP, [facility] | |Report Date/Time: 08-23-2016 14:29:04 | | | |IMPRESSION: | |1. Overall left ventricular systolic function is normal with, an EF between 55 - 60 %. | |2. There is mild concentric left ventricular hypertrophy. | |3. Pseudonormal LV diastolic filling pattern, consistent with elevated LA pressure and mode rate dysfunction (Grade II). | |4. There is mild aortic regurgitation. | |5. Ynot-yg-rcuxjqrs tricuspid regurgitation present. | |6. There is moderate pulmonary hypertension. | |7. 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 | + + documented in this encounter Visit Diagnoses Not on filedocumented in this encounter"
--- OUTSIDE RECORDS SUMMARY | ~2020-02-22 | XMS | Encounter Summary ---
Demographics + + + | Address | [address] | | | [place] [address] | + + + | Home Phone | | + + + | Preferred Language | Unknown | + + + | Marital Status | | + + + | Faith Affiliation | 1077 | + + + | Race | White | + + + | Ethnic Group | Not or | + + + Author + + + | Author | [facility] | | | and [place] | + + + | Organization | [facility] | | [...] ECON | Unknown | | | in [facility]) | | | | + + +---------+ + Care Team Providers + +------+ + | Care Maintenance Mechanic Helper Name | Role | Phone | + +------+ + PCP | Unavailable | + +------+ + Encounter Details +--------+ + + + + | Date | Type | Department | Care Team | Description | +--------+ + + + + | 10/25/ | Hospital | [facility] | Conversion | Pain | | 2018 | Encounter | CONVERSION [address] | Transaction, | | | | | [address] | Provider Unknown | | | | | [place], [place] | [phone] | | | | | [address] | | | | | | [phone] | | | +--------+ + + + [...] [address] | | | | | | [place] [address] | | | | | | [phone] | | | | | | | [...]
--- OUTSIDE RECORDS SUMMARY | ~2020-02-22 | XMS | Encounter Summary ---
Demographics + + + | Address | [address] | | | [place] [address] | + + + | Home Phone | | + + + | Preferred Language | Unknown | + + + | Marital Status | | + + + | Protestant Affiliation | 1077 | + + + | Race | White | + + + | Ethnic Group | Not or | + + + Author + + + | Author | [facility] | | | and [place] | + + + | Organization | [facility] | | [...] ECON | Unknown | | | in [facility]) | | | | + + +---------+ + Care Team Providers + +------+ + | Care Hog Man Name | Role | Phone | + +------+ + PCP | Unavailable | + +------+ + Encounter Details +--------+ + + + + | Date | Type | Department | Care Team | Description | +--------+ + + + + | 09/08/ | Hospital | [facility] | Conversion | Diagnosis unknown | | 2018 | Encounter | CONVERSION [address] | Transaction, | | | | | [address] | Provider Unknown | | | | | [place], [place] | | | | | | [address] | (Fax) | | | | | [phone] | | | +--------+ + + + [...] [address] | | | | | | [place] [address] | | | | | | [phone] | | | | | | | | +--------+---------+ + + + documented as of this encounter Procedures + +--------+ + + + | Procedure Name | Priori | Date/Time | Associated Diagnosis | Comments | | | ty | | | | + +--------+ + + + | CT CHEST W CONTRAST | Routin | 07/31/2017 | | Results for this | | | e | 5:09 PM | | procedure are in the | | | | PST | | results section. | + +--------+ + + + documented in this encounter Results CT Chest w Contrast (07/31/2017 5:09 PM PST) + + | Specimen | [...]
--- OUTSIDE RECORDS SUMMARY | ~2020-02-22 | XMS | Encounter Summary ---
Demographics + + + | Address | [address] | | | [place] [address] | + + + | Home Phone | | + + + | Preferred Language | Unknown | + + + | Marital Status | | + + + | [employer] Affiliation | 1077 | + + + [...] ECON | Unknown | | | in [facility]) | | | | + + +---------+ + Care Team Providers + +------+ + | Care Engraver Copperplate Name | Role | Phone | + +------+ + PCP | Unavailable | + +------+ + Encounter Details +--------+ + + + + | Date | Type | Department | Care Team | Description | +--------+ + + + + | 11/11/ | Hospital | [facility] | Tae Donaldson | COPD with acute | | 2018 - | Encounter | [facility] | Norm Fonseca MD [address] | exacerbation ([facility]); | | | | CARE [address]LO[address] | Acute pulmonary | | 11/14/ | | [address] | [place] [address] | edema ([facility]); T12 | | 2018 | | [place], [place] | [phone] | compression fracture | | | | [address] | | ([facility]); Acute on | | | | [phone] | | chronic congestive | | | | | | heart failure, | | | | | | unspecified heart | | | | | | failure type ([facility]); | | | | | | Multiple falls; | | | | | | Intractable low back | | | | | | pain; Shortness of | | | | | | breath; Atrial | | | | | | fibrillation with | | | | | | RVR ([facility]) | +--------+ + + + + Social [...] + + + | Blood Pressure | 141/106 | 11/14/2017 11:02 AM | | | | | PDT | | + + + + + | Pulse | 111 | 11/14/2017 11:02 AM | | | | | PDT | | + + + + + | Temperature | 36.7 C (98 F) | 11/14/2017 11:02 AM | | | | | PDT | | + + + + + | Respiratory Rate | 18 | 11/14/2017 11:02 AM | | | | | PDT | | + + + + + | Oxygen Saturation | - | - | | + + + + + | Inhaled Oxygen | - | - | | | Concentration | | | | + + + + + | Weight | 73.5 kg (162 lb 1.6 | 11/14/2017 11:02 AM | | | | oz) | PDT | | + + + + + | Height | 175.3 cm (5' 9") | 11/14/2017 11:02 AM | | | | | PDT | | + + + + + | Body Mass Index | 23.94 | 11/14/2017 11:02 AM | | | | | PDT | | + + + + + documented in this encounter Discharge Summaries James North DO - 11/14/2017 10:09 AM PDT Discharge Summaries by James North DO at 11/14/17 1009 Author: James North DO Service: Hospitalist Author Type: Physician Filed: 11/14/17 1013 Date of Service: 11/14/17 1009 Status: Signed [employer] W[employer] Etch Operator: James North DO (Physician) [facility] Service: Hospitalist Discharge Summary Date of Admission: 11/11/2017 Date of Discharge: 11/14/2017 To [facility] with Dr Jain Discharge Provider: James North DO Treatment Team: Consulting Physician: Wing Micah Jain MD Admitting Provider: Tae Donaldson MD Discharge Diagnoses: Principal Problem (Resolved): Acute on chronic diastolic heart failure (HCC) Active Problems: Compression fracture of lumbar vertebra (HCC) T12 compression fracture (HCC) Chronic atrial fibrillation (HCC) COPD, severe (HCC) Chronic respiratory failure with hypoxia (HCC) Hypertension Drug-induced constipation Resolved Problems: Shortness of breath Admitted for increasing back pain and 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 Imaging show ed new T12 compression deformity in addition to his previous compression deformities in the past. I d/w Dr Yan, he recommended TLSO brace, conservative management. PHYSICAL THERAPY recommended IPR and patient was accepted. For CHF, he had excellent diuretic response to IV furosemide 40 mg BID, over 7 liters negat rico. Peripheral edema has dried up, and symptoms of breathlessness and orthopnea have improv ed. Furosemide changed to 40 mg PO daily. For chronic afib, HR was a bit elevated, 100+, and digoxin, which he had been on in the pas t but was taken off of recently, was added back on, with a modest improvement in HR. He is on warfarin for stroke prevention in the setting of afib. Goal INR 2-3 but was suprat herapeutic and warfarin has been held. INR slowly falling, no signs of bleeding. Continue to hold warfarin with intent to restart it when INR becomes therapeutic again. DISCHARGE EXAM Vital Signs: BP (!) 141/106 | Pulse 111 | Temp 98 F (36.7 C) (Oral) | Resp 18 | Ht 1.753 m (5' 9 ") | Wt 73.5 kg (162 lb 1.6 oz) | SpO2 91% | BMI 23.94 kg/m Physical Exam NAD AOx3 HENT - MMM, conjunctivae normal Heart - irregular, rate ~100, + murmur, no JVD, normal radial / DP pulses B/L Lungs - few crackles at bases, diminished globally, no wheeze, good effort Abd - SNTND +BSx4 Ext - LE pitting edema has nearly completely resolved Skin - dry no erythema Disposition: IPR Condition: Stable Code Status: Full Code Discharge Instructions Ambulatory referral to Cardiology Referral Priority: Urgent Referral Type: Consultation Referral Reason: Specialty Services Required Referred to Provider: BRO OCTOBER Requested Specialty: Cardiology Number of Visits Requested: 1 Follow up: Eze Rice MD [address] [place] [id number] Enzo Knox MD [address] [place] [address] Medication List CHANGE how you take these medications furosemide 40 MG tablet Refills: 0 Commonly known as: LASIX Take 1 tablet by mouth daily. What changed: how much to take CONTINUE taking these medications albuterol 108 (90 [...] tablet Refills: 0 Commonly known as: CARDURA lisinopril 2.5 MG tablet Refills: 0 Commonly known as: ZESTRIL metaxalone 800 MG tablet Refills: 0 Commonly known as: SKELAXIN multivitamin with minerals tablet Refills: 0 OXYCODONE HCL PO Refills: 0 oxyCODONE-acetaminophen 10-325 MG per tablet QTY: 120 tablet Refills: 0 Commonly known as: PERCOCET Take 1 tablet by mouth every 6 (six) hours as needed. Oxygen (outpatient therapy) QTY: 1 Units Refills: [...] as: ALDACTONE umeclidinium-vilanterol 62.5-25 MCG/INH inhaler QTY: 1 each Refills: 5 For diagnoses: Mixed restrictive and obstructive lung disease Commonly known as: ANORO ELLIPTA Inhale 1 puff into the lungs daily. You might also be taking other medications not listed above. If you have questions about an y of your other medications, talk to the person who prescribed them or your Primary Care Pro vider. STOP taking these medications warfarin 3 MG tablet Commonly known as: COUMADIN Where to Get Your Medications Information about where to get these medications is not yet available Ask your nurse or doctor about these medications furosemide 40 MG tablet Discharge took ~35 minutes, to include final examination, discussion of admission, and prep aration of prescriptions, instructions for on-going care, follow-up and documentation of dis charge summary. James North DO 11/14/2017 10:09 AM documented in this enc ounter Medications at Time of Discharge + + [...] documented as of this encounter Progress Notes Conversion Transaction, Provider Unknown - 11/14/2017 11:13 AM PDTFormatting of this note m ight be different from the original. Nurse Progress Note by Niranjan Espinoza RN at 11/14/171112 Author: Niranjan Espinoza RN Service: (none) Author Type: Registered Nurse Filed: 11/14/171115 Date of Service: 11/14/171112 Status: Signed [employer] Et[employer] Operator: Niranjan Espinoza RN (Registered Nurse) Report called and given to [facility] nurse Concepcion. Albaro arias RN reviewed AVS with patient and family. To be transported down to [facility] by our nursing staff. onver kelin Transaction, Provider Unknown - 11/14/2017 11:07 AM PDT Nurse Progress Note by Albaro Rodriguez RN at 11/14/17 1107 Author: Albaro Rodriguez RN Service: (none) Author Type: Registered Nurse Filed: 11/14/17 1109 Date of Service: 11/14/17 1107 Status: Signed [employer] Et[employer] Operator: Albaro Rodriguez RN (Registered Nurse) Discharge teaching completed with patient and family. CHF book in hand. Reviewed worsening s/sx of exacerbation and when to notify medical provider. Patient verbalized understanding a nd reports that he will weigh self daily to monitor trends. Will admit to IRP room 339 ALBARO RODRIGUEZ RN onver kelin Transaction, Provider Unknown - 11/14/2017 10:53 AM PDT Progress Notes by Mitzi Garber CMA at 11/14/17 1053 Author: Mitzi Garber CMA Service: (none) Author Type: Flat Hammerer Filed: 11/14/17 1054 Date of Service: 11/14/17 1053 Status: Signed [employer] W[employer] Etch Operator: Mitzi Garber CMA (Flat Hammerer) GPS- Patient enrolled. Will follow for appointments once DC from [facility]. 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 He indicate s that he experienced significant pain with mobility yesterday, but was able to tolerate sit ting in chair for 5 minutes. The patient performed supine exercise while awaiting pain medi cation administration. He required max verbal cues for bed mobility technique to maintain s octavio precautions and decrease pain with mobility. He was able to ambulate 5 feet to chair with Min A. The patient was receptive to sitting in chair for breakfast. PT returned to as sist patient back to bed, doff TLSO. Upon achieving supine, patient requested use of bed pa n. Therapist assisted in placement, providing instruction in log roll technique to decrease strain to the spine. Pt was left with call light in reach. Therapist informed RN of pt's location at end of treatment session. Precautions Spinal Precautions: TLSO on when upright, Lumbar Other Precautions: fall risk; SpO2 >/=88%; pre-medicate for pain Cognition Overall Cognitive Status: Within Functional Limits Orientation Level: Oriented Oriented: x 4 FUNCTIONAL MOBILITY Bed Mobility Rolling: Moderate assist, To left Supine to Sit: Mod assist (BLEs OOB or trunk to upright) - Transfers Sit to/from Stand: Moderate assist (to arise OR lower) Ambulation Weight Bearing Status: WBAT RLE, WBAT LLE Maximal Ambulation Distance (feet): 5 Total Ambulation Distance (feet): 5 Ambulation Assistance: Minimal assist Distance limited by?: Patient's ability (pain) Pattern: Alternating, Decreased garland, Right swing foot doesn't pass stance foot, Left sw ing foot doesn't pass stance foot Assistive Device: Walker front wheeled THERAPEUTIC EXERCISE Supine-Exercise Type: Ankle pumps, Heel slides, Hook lying ABduction/ADduction Supine-Exercise Comments: 15 reps bilaterally Seated-Exercise Type: Long arc quads Seated-Exercise Comments: 10 reps bilaterally Activity Tolerance: Patient limited by pain Nurse Made Aware: yes Type of Devices: (call light in reach) The patient reported pain rated at a 3/10 at start of session, 5/10 when seated in chair. R N was notified and was present during session to provide pain medication. Other measures pro vided to relieve pts pain included: repositioning in the bed. Education Completed: Education Topics: [x] Rationale for [...] No evidence of learning [] Refused onversion Transac mery, Provider Unknown - 11/13/2017 4:25 PM PDTFormatting of this note might be different f rom the original. Case Management by Jane Finch RN at 11/13/171624 Author: Jane Finch RN Service: (none) Author Type: Registered Nurse Filed: 11/13/171625 Date of Service: 11/13/171624 Status: Signed [employer] Etch Operator: Jane Finch RN (Registered Nurse) Discharge Planning: CM attended Hospitalist rounding, pt likely to need IPR or SNF, ADC simona n TBD. ames North DO - 11/13/2017 2:26 PM PDTFormatting of this note might be different from the shaneka amy. Progress Notes by James North DO at 11/13/17 1428 Author: James North DO Service: Hospitalist Author Type: Physician Filed: 11/13/17 1428 Date of Service: 11/13/171425 Status: Signed [employer] W[employer] Etch Operator: James North DO (Physician) PROGRESS NOTE 11/13/2017 for Rudy Marti on the hospitalist service. 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 Chronic afib Digoxin added back on for better rate control, continue diltiazem. INR remains supratherapeutic, hold warfarin until INR falls back to goal 2-3. New T12 compression fracture I d/w Dr Yan, proceed with TLSO, PHYSICAL THERAPY/OT, conservative management. HTN Continue diltiazem and lisinopril. COPD Stable, not in exacerbation. Problem list: Principal Problem: Acute on chronic diastolic heart failure (HCC) Active Problems: Compression fracture of lumbar vertebra (HCC) Shortness of breath T12 compression fracture (HCC) Chronic atrial fibrillation (HCC) COPD, severe (HCC) Chronic respiratory failure with hypoxia (HCC) Hypertension Drug-induced constipation Length of stay: 1 days DVT prophylaxis: INR high Code status: full code Disposition: inpatient SUBJECTIVE Patient seen/examined lying in bed, c/o back pain, but no dyspnea or chest pain. OBJECTIVE Temp: [97.5 F (36.4 C)-98.6 F (37 C)] 98 F (36.7 C) (11/13 1124) BP: (102-138)/(62-86) 106/65 (11/13 1124) Heart Rate: [75-104] 96 (11/13 1124) Resp: [20-24] 22 (11/13 1124) SpO2: [90 %-93 %] 92 % (11/13 0835) Weight: [73.9 kg (163 lb)] 73.9 kg (163 lb) (11/13 0321) Physical exam: NAD AOx3 HENT - MMM, conjunctivae normal Heart - irregular, rate ~100, + murmur, no JVD, normal radial / DP pulses B/L Lungs - crackles at bases, diminished globally, no wheeze, good effort Abd - SNTND +BSx4 Ext - +pitting edema B/L LE Skin - chronic venous stasis changes to B/L shins CBC: Lab Results Component Value Date WBC 9.11 11/13/2017 RBC 4.96 11/13/2017 HGB 10.4 (L) 11/13/2017 HCT 34.2 (L) 11/13/2017 MCV 69.1 (L) 11/13/2017 MCH 20.9 (L) 11/13/2017 MCHC 30.3 (L) 11/13/2017 RDW 47.3 11/13/2017 PLT 295 11/13/2017 MPV 7.6 11/13/2017 DIFFTYPE AUTOMATED 11/13/2017 BMP: Lab Results Component Value Date NA 134 (L) 11/13/2017 K 4.2 11/13/2017 CL 91 (L) 11/13/2017 CO2 39 (H) 11/13/2017 ANIONGAP 8 11/13/2017 GLUF 148 (H) 11/13/2017 BUN 19 11/13/2017 CREATININE 1.2 11/13/2017 BCR 16 11/13/2017 CA 8.9 11/13/2017 EGFR >60 11/13/2017 Magnesium: Lab Results Component Value Date MG 2.0 11/13/2017 Phosphorus: Lab Results Component Value Date PHOS 3.6 11/13/2017 PT/INR: Lab Results Component Value Date INR 6.7 (HH) 11/13/2017 MEDICATIONS aspirin 81 mg Oral Daily atorvastatin 20 mg Oral Nightly calcitonin (salmon) 1 spray Alternating Nares Daily co-enzyme Q-10 200 mg Oral Daily digoxin 0.125 mg Oral Daily diltiazem 240 mg Oral Daily doxazosin 2 mg Oral Nightly [START ON 11/14/2017] furosemide 40 mg Oral Daily lactulose 30 g Oral Daily Lidocaine 1 patch Transdermal Daily methocarbamol 1,500 mg Oral 4x Daily multivitamin with minerals 1 tablet Oral Daily senna 2 tablet Oral Nightly sodium chloride 10 mL Intravenous Q8H spironolactone 12.5 mg Oral Daily umeclidinium-vilanterol 1 puff Inhalation Daily PRN: acetaminophen OR acetaminophen, ipratropium-albuterol, ondansetron OR ondansetron, oxyCODONE-acetaminophen AND oxyCODONE, polyethylene glycol, zolpidem I spent over 35 minutes in reviewing patient s data, examination of patient and discussin g care of patient with patient and family. At least, 50% of time was face to face counseling or coordinating of care. Signature: James North DO 11/13/2017 2:26 PM onversion Transaction , Provider Unknown - 11/12/2017 4:13 PM PDT Case Management by Ana Maria Kuo RN at 11/12/17 1613 Author: Ana Maria Kuo RN Service: (none) Author Type: Registered Nurse Filed: 11/12/17 1622 Date of Service: 11/12/17 161 Status: Signed [employer] Etch Operator: Ana Maria Kuo RN (Registered Nurse) 11/12/17 1500 Discharge Planning Evaluation Admitting Diagnosis Acute CHF Readmission No Living Arrangements Alone Support Systems Children (daughter -Dora) Type of Residence Private residence House type Apartment Elevator available No (lives on 2nd floor) Bathrooms on 1st Floor 1-Full Independent with ADL's Yes (pt admits to needing more assistance with ADLs) Independent with Mobility Yes (uses cane for stabilitiy) Home Care Services No Caregiver after Discharge No Mental Status Oriented Prior functional status independent Power of Accounting Supervisor No Anticipated Discharge Plan Post Acute Care Needs None at this time Plan communicated to patient/family Yes Resources Financial concerns Yes (ability to afford an [facility] or caregivers) Transportation issues No Patient/Family concerns Yes (Pt needing more assistance with ADLs) Prescription Plan Yes Previous home health equipment No Vascular access device No Ostomy/Drains/Appliances No Anticipated Disposition Facility Type Home Met with patient and discussedCM discharge planning, Pt is a 87 y.o., male With SOB x3 day s and new dx of compression fx. Pt fitted for support back [facility] . Patient's PCP is: Eze Rice (planning on retired) Patient's insurance: Medicare/[facility] Coverage concerns: none Medication coverage/concerns: none Rx Bedside Delivery: Community resources utilized / needed: Pt needing assistance at home. Possibly HHS, discu ssed caregiver options. Family lives in [place], [place]. Pt lives in [place] and is resist ant to move to [facility] at this time. Pt concerned he can not afford an MARTHA. Pt admits to having problems with meal planning and frequent falls. Assistance in transportation: pov with family assist by son Identification of any specific education / training: CHF teaching and follow up clinic pro gram. Barriers to Discharge / Alternative housing needed: Pt safety in home Anticipated DCP: 3-4 days. CM to follow up with Dora-daughter ([phone]) about family assistance with home assistance. In current area he is relying on friends for assistance. Najma Kuo RN,BSN,CM BrowJames barney DO - 11/12/2017 11:39 AM PDTFormatting of this note might be different from the shaneka gicon. Progress Notes by James North DO at 11/12/17 1137 Author: James North DO Service: Hospitalist Author Type: Physician Filed: 11/12/17 1141 Date of Service: 11/12/17 1139 Status: Signed [employer] W[employer] Et[employer] Operator: James North DO (Physician) PROGRESS NOTE 11/12/2017 for Rudy Marti on the hospitalist service. 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 Chronic afib Digoxin added back on for better rate control, continue diltiazem. Warfarin INR supratherapeutic, hold until INR falls back to goal 2-3. New T12 compression fracture I will confirm with Dr Yan that we can proceed with TLSO brace and conservative manageme nt (he is currently in surgery). HTN Continue diltiazem and lisinopril. COPD Stable, not in exacerbation. Problem list: Principal Problem: Acute on chronic diastolic heart failure (HCC) Active Problems: Compression fracture of lumbar vertebra (HCC) Shortness of breath T12 compression fracture (HCC) Chronic atrial fibrillation (HCC) COPD, severe (HCC) Chronic respiratory failure with hypoxia (HCC) Hypertension Drug-induced constipation Length of stay: 0 days DVT prophylaxis: INR high Code status: full code Disposition: inpatient SUBJECTIVE Patient seen/examined lying in bed, c/o ongoing back pain, no dyspnea or chest pain. OBJECTIVE Temp: [97.4 F (36.3 C)-99.2 F (37.3 C)] 98 F (36.7 C) (11/13 1055) BP: (119-161)/(62-93) 129/70 (11/13 1055) Heart Rate: [90-120] 100 (11/13 1055) Resp: [16-24] 24 (11/13 1055) SpO2: [91 %-98 %] 93 % (11/13 1055) Height: [175.3 cm (5' 9")] 175.3 cm (5' 9") (11/12 145) Weight: [76 kg (167 lb 9.6 oz)-79.4 kg (175 lb 0.7 oz)] 76 kg (167 lb 9.6 oz) (11/12 145) BMI (Calculated): [24.8] 24.8 (11/12 145) Physical exam: NAD AOx3 HENT - MMM, conjunctivae normal Heart - irregular, rate ~100, + murmur, no JVD, normal radial / DP pulses B/L Lungs - crackles at bases, diminished globally, no wheeze, good effort Abd - SNTND +BSx4 Ext - +pitting edema B/L LE Skin - chronic venous stasis changes to B/L shins CBC: Lab Results Component Value Date WBC 10.62 11/12/2017 RBC 4.94 11/12/2017 HGB 10.4 (L) 11/12/2017 HCT 33.9 (L) 11/12/2017 MCV 68.7 (L) 11/12/2017 MCH 21.1 (L) 11/12/2017 MCHC 30.7 (L) 11/12/2017 RDW 46.8 11/12/2017 PLT 314 11/12/2017 MPV 7.9 11/12/2017 DIFFTYPE AUTOMATED 11/12/2017 BMP: Lab Results Component Value Date NA 137 11/12/2017 K 4.1 11/12/2017 CL 95 (L) 11/12/2017 CO2 38 (H) 11/12/2017 ANIONGAP 8 11/12/2017 GLUF 110 (H) 11/12/2017 BUN 16 11/12/2017 CREATININE 0.9 11/12/2017 BCR 18 11/12/2017 CA 9.5 11/12/2017 EGFR >60 11/12/2017 Magnesium: Lab Results Component Value Date MG 2.0 11/12/2017 Phosphorus: Lab Results Component Value Date PHOS 3.0 11/12/2017 PT/INR: Lab Results Component Value Date INR 4.8 11/11/2017 MEDICATIONS aspirin 81 mg Oral Daily atorvastatin 20 mg Oral Nightly calcitonin (salmon) 1 spray Alternating Nares Daily co-enzyme Q-10 200 mg Oral Daily digoxin 0.125 mg Oral Daily diltiazem 240 mg Oral Daily doxazosin 2 mg Oral Nightly furosemide 40 mg Intravenous BID [START ON 11/13/2017] lactulose 30 g Oral Daily Lidocaine 1 patch Transdermal Daily lisinopril 2.5 mg Oral Daily methocarbamol 1,500 mg Oral 4x Daily multivitamin with minerals 1 tablet Oral Daily [START ON 11/13/2017] senna 2 tablet Oral Nightly sodium chloride 10 mL Intravenous Q8H spironolactone 12.5 mg Oral Daily umeclidinium-vilanterol 1 puff Inhalation Daily PRN: acetaminophen OR acetaminophen, ipratropium-albuterol, ondansetron OR ondansetron, oxyCODONE-acetaminophen AND oxyCODONE, polyethylene glycol, zolpidem I spent over 35 minutes in reviewing patient s data, examination of patient and discussin g care of patient with patient and family. At least, 50% of time was face to face counseling or coordinating of care. Signature: James North DO 11/12/2017 11:39 AM onversion Transaction , Provider Unknown - 11/12/2017 10:32 AM PDT Therapy Progress Note by Dulce Sanders PT at 11/12/17 1032 Author: Dulce Sanders PT Service: (none) Author Type: Physical Therapist Filed: 11/12/17 1034 Date of Service: 11/12/17 1032 Status: Signed [employer] W[employer] Etch Operator: Dulce Sanders PT (Physical Therapist) 11/12/17 1032 PT Last Visit PT Received On 11/12/17 Reason for Treatment Other (comment) (s/p fall with compression fx, SOB with CHF exacerbation) Requires PT Follow Up On hold (pending consult for need for TLSO for mobility) Other Comments Comments Chart reviewed with pt presenting s/p fall and acute compression fracture T12, bri iting MD consultation for need regarding TLSO for OOB mobility and activity orders with ongo ing elevated supratherapeutic INR. Plan to continue to attempt following consultation as is appropriate. onver kelin Transaction, Provider Unknown - 11/12/2017 2:40 AM PDT Progress Notes by Ian Hussein RPH at 11/12/17239 Author: Ian Hussein RPH Service: Pharmacy Author Type: Pharmacist Filed: 11/12/17239 Date of Service: 11/12/17239 Status: Signed [employer]iconductor Wafers Etch Operator: Ian Hussein RPH (Pharmacist) Note ccl 70.1ml/min meds reviewed pharmacy will follow [facility] 0240 docume nted in this encounter H&P Notes Tae Donaldson MD - 11/11/2017 11:26 PM PDTFormatting of this note might be diff erent from the original. H&P by Tae Donaldson MD at 11/11/172325 Author: Tae Donaldson MD Service: Hospitalist Author Type: Physician Filed: 11/12/17249 Date of Service: 11/11/172325 Status: Signed [employer] W[employer] Etch Operator: Tae Donaldson MD (Physician) [facility] Service: Hospitalist Admission History & Physical Date of Admission: 11/11/2017 Requesting Physician: Dr. Rondon, Emergency Department Reason for Admission: Acute diastolic CHF History Obtained From: patient, daughter, son, chart review, Quality of history: good CHIEF COMPLAINT: SOB X 3 days HISTORY OF PRESENT ILLNESS The patient is a 87 y.o. 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 Knox and on 10/16/2017 and h is bisoprolol had been stopped, Cardizem CD 180 mg was started, his digoxin had been stopped , and at that time was told to increase his Lasix to bid for 1 week and and BNP in 1 week an d then to call his office to let them know how he is doing, however after the one week of bi d Lasix the patient had stopped taking his Lasix and according the patient had not been able to get the nurse at Dr. Knox's clinic to call him back. Patient then started to have increased shortness of breath and leg swelling 4 days prior to admission and despite using his 2 L of oxygen as well as using his inhalers and continued t o be short of breath, as well he had fallen and continued to have severe lower back pain and that been taking oxycodone without improvement in his back pain and became constipated as a result. On presentation to emergency department the patient's temperature was 99.2, blood pressure was high at 161/93 heart rate was up to 107, his pain was up to 9, SAO2 was 96% room air, PT INR was 4.8, creatinine 0.77, chloride 98 CO2 35, white cell count was 8.78 hemoglobin 10.5 hematocrit 35.4 platelets 3:15, refill 72.8 lymphocytes 12.6 monocytes 13.5 eos 1.25 monos 1.15, BNP was 194, chest x-ray showed mild pulmonary edema, lumbar CT scan showed mild compr ession deformity of T12 which is new and chronic compression deformity of L1 and multilevel degenerative changes, patient was given digoxin 0.5 mg 1, Lasix 40 mg 1, Cardizem 10 mg 1, REVIEW OF SYSTEMS ROS obtained from patient, daughter, son, chart review. A comprehensive review of systems was negative except for Items mentioned in HPI Past Medical History Diagnosis Date Acute on chronic diastolic heart failure (HCC) 11/12/2017 Atrial fibrillation (HCC) Drug-induced constipation 11/12/2017 Heart attack (HCC) Hepatitis History of stomach ulcers Hypertension Irregular heart beat Joint pain Unspecified visual disturbance Past Surgical History Procedure Laterality Date Diagnostic blocks Left 11-09-2015 Left diagnostic block of the dorsal ramus of L5 & lateral branches of S1,S2,S3 HERNIA REPAIR 1936 NECK SURGERY SACROILIAC JOINT INJECTION 11-24-12 Left SACROILIAC JOINT INJECTION 05-18-13 Left SACROILIAC JOINT INJECTION 10-14-2014 Left sacroiliac joint injection SACROILIAC JOINT INJECTION Left 03/28/2015 Left Sacroiliac Joint Injection SHOULDER SURGERY 2001 STOMACH SURGERY 1969 TOTAL KNEE ARTHROPLASTY 1999 Immunizations: Influenza: Up-to-date Pneumoccocal: Up-to-date; approximate date: less than 2 years ago per patient Allergies Allergen Reactions Fentanyl Diarrhea Prescriptions Prior to Admission Medication Sig Dispense Refill Last Dose albuterol (PROAIR HFA) 108 (90 Base) MCG/ACT inhaler Inhale 2 puffs into the lungs ever y 4 (four) hours as needed for Wheezing. 1 Inhaler 5 11/11/2017 at Unknown time bisoprolol (ZEBETA) 5 MG tablet Take 5 mg by mouth 2 (two) times daily. Past Month at Unknown time digoxin (LANOXIN) 0.125 MG tablet Take 125 mcg by mouth daily. Past Month at Unknown time diltiazem (CARDIZEM CD) 180 MG 24 hr capsule Take 1 capsule by mouth daily. 90 capsule 3 11/11/2017 at Unknown time doxazosin (CARDURA) 2 MG tablet Take 2 mg by mouth nightly. 11/10/2017 at Unknown time furosemide (LASIX) 40 MG tablet Take 20 mg by mouth daily. Past Month at Unknown time oxycodone-acetaminophen (PERCOCET) 10-325 MG per tablet Take 1 tablet by mouth every 6 (six) hours as needed. 120 tablet 0 11/11/2017 at Unknown time simvastatin (ZOCOR) 40 MG tablet Take 40 mg by mouth nightly. 11/10/2017 at Unknown lloyd e spironolactone (ALDACTONE) 25 MG tablet Take 12.5 mg by mouth daily. 11/11/2017 at Unkn own time warfarin (COUMADIN) 3 MG tablet Take 3.5 mg by mouth daily. 11/10/2017 at Unknown time aspirin 81 MG tablet Take 81 mg by mouth daily. Taking Coenzyme Q10 (COQ10) 200 MG CAPS Take by mouth. Taking lisinopril (ZESTRIL) 2.5 MG tablet Take 2.5 mg by mouth daily. More than a month at U nknown time metaxalone (SKELAXIN) 800 MG tablet Taking Multiple Vitamins-Minerals (MULTIVITAMIN WITH MINERALS) tablet Take 1 tablet by mouth d aily. Taking OXYCODONE HCL PO Take 0.5 tablets by mouth as needed. Taking Oxygen (outpatient therapy) Start oxygen on exertion/ambulation at __ LPM via nasal can nula, and at night at __ LPM. Pls evaluate for conserving device. Pls provide home concentra tor and portable oxygen system. 1 Units 0 Taking umeclidinium-vilanterol (ANORO ELLIPTA) 62.5-25 MCG/INH inhaler Inhale 1 puff into the lungs daily. 1 each 5 Family History Problem Relation Age of Onset [...] Narrative No narrative on file PHYSICAL EXAM BP 140/70 | Pulse 120 | Temp 98.2 F (36.8 C) (Oral) | Resp 18 | Ht 1.753 m (5' 9") | Wt 76 kg (167 lb 9.6 oz) | SpO2 96% | BMI 24.75 kg/m General Appearance: Alert, cooperative, no distress, appears stated age Head: Normocephalic, without obvious abnormality, atraumatic Eyes: PERRL, conjunctiva/corneas clear, EOM's intact, Ears: Normal external ear canals, both ears Nose: Nares normal, septum midline, mucosa normal, no drainage or sinus tenderness Throat: Lips, mucosa, and tongue normal; teeth and gums normal Neck: Supple, symmetrical, trachea midline, no adenopathy; thyroid: No enlargement/tenderness/nodules; no carotid bruit or JVD Back: Symmetric, positive pain on thoracic area, no CVA tenderness Lungs: Clear to auscultation bilaterally, respirations unlabored Chest wall: No tenderness or deformity Heart: Regular rate and rhythm, S1 and S2 normal, no murmur, rub or gallop Abdomen: Soft, non-tender, bowel sounds active all four quadrants, no masses, no organomegaly Extremities: Extremities normal, atraumatic, no cyanosis or edema Pulses: 2+ and symmetric all extremities Skin: Skin color, texture, turgor normal, no rashes or lesions Lymph nodes: Cervical, supraclavicular, and axillary nodes normal Neurologic: CNII-XII intact. Normal strength, sensation and reflexes throughout DATA CBC: Lab Results Component Value Date WBC 8.78 11/11/2017 RBC 5.07 11/11/2017 HGB 10.5 (L) 11/11/2017 HCT 35.4 (L) 11/11/2017 MCV 69.8 (L) 11/11/2017 MCH 20.6 (L) 11/11/2017 MCHC 29.6 (L) 11/11/2017 RDW 47.3 11/11/2017 PLT 315 11/11/2017 MPV 7.4 11/11/2017 DIFFTYPE AUTOMATED 11/11/2017 CMP: Lab Results Component Value Date NA 136 11/11/2017 K 4.4 11/11/2017 CL 98 (L) 11/11/2017 CO2 35 (H) 11/11/2017 ANIONGAP 7 11/11/2017 GLUF 103 (H) 11/11/2017 BUN 16 11/11/2017 CREATININE 0.77 11/11/2017 BCR 21 11/11/2017 CA 9.1 11/11/2017 PROT 6.6 11/11/2017 ALB 3.2 (L) 11/11/2017 GLOB 3.4 11/11/2017 BILITOT 0.6 11/11/2017 ALP 209 (H) 11/11/2017 AST 27 11/11/2017 ALT 27 11/11/2017 EGFR >60 11/11/2017 Calcium: No results found for: CALCIUM Magnesium: No results found for: MG Phosphorus: No results found for: PHOS PT/INR: Lab Results Component Value Date INR 4.8 11/11/2017 PTT: Lab Results Component Value Date APTT 44 (H) 11/11/2017 [APTT} Troponin: Lab Results Component Value Date TROPONINI 0.033 11/11/2017 CPK: Lab Results Component Value Date CKTOTAL 73 11/11/2017 CKMB: Lab Results Component Value Date CKMB 2.9 11/11/2017 Xr Chest Pa And Lateral Result Date: 11/11/2017 Pulmonary findings suggesting mild fluid overload. RADIA Electronically signed by Marah Cantor MD on Nov 11 2017 7:37PM Referring Provider Line: [phone] ID: [id number] Ct L-spine Without Contrast Result Date: 11/11/2017 1. Mild compression deformity of T12 which is new from the prior exam. 2. Chronic babar kelin deformity of L1, not significantly changed. 3. Multilevel degenerative changes as abov e with slight progression from the prior exam. Electronically signed by Stew Freed on 2017 10:36 PM PROBLEM LIST Principal Problem: Acute on chronic diastolic heart failure (HCC) Active Problems: Hypertension Drug-induced constipation Compression fracture of lumbar vertebra (HCC) Shortness of breath T12 compression fracture (HCC) Chronic atrial fibrillation (HCC) COPD, severe (HCC) Chronic respiratory failure with hypoxia ([facility]) ASSESSMENT & PLAN Patient Active Hospital Problem List: Acute on chronic diastolic heart failure Shortness of breath / (HCC) (11/12/2017) Assessment: Last echocardiogram was back in 07/2016 which showed overall LVEF of 55-60 per cent and grade 2 left ventricular diastolic filling pattern consistent with elevated LA pres sure and moderate dysfunction, and mild to moderate tricuspid regurg, mild aortic regurg, mo derate pulmonary hypertension. Plan: Admit, continue Lasix 40 mg bid, fluid restriction 1.2 L per day, daily weight, str ict I and O, BMP admission calcium and phosphorus daily, telemetry, no Lovenox as the patien t's PT/INR is 4.8, echocardiogram Hypertension (11/12/2017) Assessment: Slightly elevated Plan: We have increased the patient's Cardizem CD to 40 mg daily, Zestril 2.5 mg orally d aily, adjust upward as needed. Drug-induced constipation (11/12/2017) Assessment: From the pain medication Plan: Senokot 2 pills now as well as lactulose 30 mg now and if no result can have mag ci trate. Wh Compression fracture of lumbar vertebra (HCC) (11/09/2012) Assessment: Which is old Plan: As above T12 compression fracture ([facility]) (09/19/2017) Assessment: New Plan: dded lidocaine patch to oral and IV pain medication, PT consult , OT consult, Dr. Micah lanier for TLSO brace, Robaxin 1500 mg qid, Percocet prn, Chronic atrial fibrillation ([facility]) (09/19/2017) Assessment: heart rate not well controlled Plan: digoxin 25 g twice and then restart his digoxin pill 0.125 mg daily, increase Car dizem to 240 mg orally daily, adjust as needed. Chronic respiratory failure with hypoxia/COPD ([facility]) (10/21/2017) Assessment: Exacerbated by the diastolic congestive heart failure Plan: DuoNeb breathing treatment every 4 hours, continue with his Lipitor, I explained radiology and lab findings, plan of care and management to patient and relativ es at bedside, told them somebody else from the hospitalist service will see patient later. Patient and relatives verbalized understanding and agreement with plan of care and did not h ave any more questions for me after my interaction with them. 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 Other recommendations for management of this patient will be d ependent upon the patient's clinical course. Inpatient, patient will require minimum of 2 night stay due to complexity of patient's medi sindhu conditions, and need to stabilize patient's underlying conditions Discharge plans when stable and improved in 24 to 48 hours. Disposition: Observe in CDU Disposition: Admit as Inpatient to Acute Care Floor Dictation software, [employer], used which may contain error for similar sounding words even af ter review. Personal communication requested for any clarification. Portions of this chart may have been copied from previous notes for continuity of care. Disposition: Likely home? Code Status: Full Code Primary Care Physician: EZE Donaldson MD 11/12/2017 documented in this encounter ED Notes Conversion Transaction, Provider Unknown - 11/12/2017 1:38 AM PDTFormatting of this note m ight be different from the original. ED Notes by Jadon Sinha RN at 11/12/17137 Author: Jadon Sinha RN Service: (none) Author Type: Registered Nurse Filed: 11/12/17137 Date of Service: 11/12/17137 Status: Signed [employer] Etch Operator: Jadon Sinha RN (Registered Nurse) Report to Naina DOSS [id number] Jadon Sinha RN 11/12/17137 odine z, Eddie Fernandez MD - 11/11/2017 8:56 PM PDT ED Provider Notes by Eddie Rondon DO at 11/11/172055 Author: Eddie Rondon DO Service: Emergency Department Author Type: Physician Filed: 11/12/17 0329 Date of Service: 11/11/172055 Status: Signed [employer] Et[employer] Operator: Eddie Rondon DO (Physician) [facility] Department of Emergency Medicine 8:56 PM 11/11/2017 History of Present Illness Patient Identification Rudy Marti is a 87 y.o. male. Patient information was obtained from patient. History/Exam limitations: none. Patient presented to the Emergency Department by: Car Chief Complaint Chief Complaint Patient presents with Shortness of Breath Swelling bilateral legs and wt gain Pt presents to the ED with shortness of breath. Onset of symptoms was 4 days ago, with a w orsening course since that time. Severity is described as moderate. The patient reports exer tion worsens symptoms, and nothing relieves symptoms. Patient reports over the last several days he has had difficulty breathing. Patient states he feels like he is unable to take a de ep breath. Patient states he has trouble with daily activities due to his symptoms. Patient has noticed his oxygen saturation drops during minimal exertion. Patient does have a h/o PECAN GROWER D and is on home oxygen for the last 3 weeks. Patient states he has been using 2L of oxygen and has not increased his oxygen regimen. Patient was concerned about his symptoms, promptin g him to the ED for evaluation. Patient also complains of bilateral lower extremity edema an d severe lower back pain. Denies fever, cough, abd pain, vomiting, bowel/bladder changes, or any other symptoms. Patient has been taking oxycodone without improvement in his symptoms. Patient has a hx significant for atrial fibrillation, hypertension, and CHF. Patient states his medicine worker discontinued his Lasix and lisinopril approximately 5 weeks ago and starte d him on diltiazem. Eligibility Consultant: Past Medical History Diagnosis Date Acute on chronic diastolic heart failure (HCC) 11/12/2017 Atrial fibrillation (HCC) Drug-induced constipation 11/12/2017 Heart attack (HCC) Hepatitis History of stomach ulcers Hypertension Irregular heart beat Joint pain Unspecified visual disturbance Past Surgical History Procedure Laterality Date Diagnostic blocks Left 11-09-2015 Left diagnostic block of the dorsal ramus of L5 & lateral branches of S1,S2,S3 HERNIA REPAIR 193 NECK SURGERY SACROILIAC JOINT INJECTION 11-24-12 Left SACROILIAC JOINT INJECTION 05-18-13 Left SACROILIAC JOINT INJECTION 10-14-2014 Left sacroiliac joint injection SACROILIAC JOINT INJECTION Left 03/28/2015 Left Sacroiliac Joint Injection SHOULDER SURGERY 2002 STOMACH SURGERY 1970 TOTAL KNEE ARTHROPLASTY 2000 Prior to Admission medications Medication Sig Start Date End Date Taking? Authorizing Provider albuterol (PROAIR HFA) 108 (90 Base) MCG/ACT inhaler Inhale 2 puffs into the lungs every 4 (four) hours as needed for Wheezing. 10/21/17 10/21/18 Yes Donya Taylor MD bisoprolol (ZEBETA) 5 MG tablet Take 5 mg by mouth 2 (two) times daily. Yes Historical Pr ovider digoxin (LANOXIN) 0.125 MG tablet Take 125 mcg by mouth daily. 10/18/12 Yes Historical Prov ider diltiazem (CARDIZEM CD) 180 MG 24 hr capsule Take 1 capsule by mouth daily. 10/16/17 10/16/18 Yes Enzo Knox MD doxazosin (CARDURA) 2 MG tablet Take 2 mg by mouth nightly. 10/18/12 Yes Historical Provide r furosemide (LASIX) 40 MG tablet Take 20 mg by mouth daily. Yes Historical Provider oxycodone-acetaminophen (PERCOCET) 10-325 MG per tablet Take 1 tablet by mouth every 6 (six ) hours as needed. 04/14/13 Yes MARY LOU Rocha simvastatin (ZOCOR) 40 MG tablet Take 40 mg by mouth nightly. 10/18/12 Yes Historical Provi new spironolactone (ALDACTONE) 25 MG tablet Take 12.5 mg by mouth daily. Yes Historical Provi new warfarin (COUMADIN) 3 MG tablet Take 3.5 mg by mouth daily. 09/23/12 Yes Historical Provide r aspirin 81 MG tablet Take 81 mg by mouth daily. Historical Provider Coenzyme Q10 (COQ10) 200 MG CAPS Take by mouth. Historical Provider lisinopril (ZESTRIL) 2.5 MG tablet Take 2.5 mg by mouth daily. Historical Provider metaxalone (SKELAXIN) 800 MG tablet 08/04/12 Historical Provider Multiple Vitamins-Minerals (MULTIVITAMIN WITH MINERALS) tablet Take 1 tablet by mouth daily . Historical Provider OXYCODONE HCL PO Take 0.5 tablets by mouth as needed. Historical Provider Oxygen (outpatient therapy) Start oxygen on exertion/ambulation at __ LPM via nasal cannula , and at night at __ LPM. Pls evaluate for conserving device. Pls provide home concentrator and portable oxygen system. 09/19/17 Donya Taylor MD umeclidinium-vilanterol (ANORO ELLIPTA) 62.5-25 MCG/INH inhaler Inhale 1 puff into the lung s daily. 10/21/17 Donya Taylor MD Allergies Allergen Reactions Fentanyl Diarrhea Social History Social History Marital status: Spouse [...] Social History Narrative No narrative on file Family History Problem Relation Age of Onset Cancer Sister Review of Systems Constitutional: Negative for: fever or chills Cardiovascular: Negative for: chest pain Respiratory: Positive for: SOB Negative for: cough Gastrointestinal: Negative for: vomiting or abdominal pain Genitourinary: Negative for: dysuria, flank pain, or hematuria Musculoskeletal: Positive for: severe lumbar back pain, lower extremity swelling Skin: Negative for: rash or lesion Neuro and psych: Negative for: fainting or dizziness All other systems were reviewed and are subjectively reported as negative. Physical Exam BP (!) 161/93 (BP Location: Left upper arm) | Pulse 95 | Temp 99.2 F (37.3 C) (Tempor al) | Resp 22 | Wt 79.4 kg (175 lb 0.7 oz) | SpO2 95% | BMI 25.85 kg/m Vitals: Hypertensive, otherwise normal Pulse Oximetry Interpretation: Normal General: Alert, no active distress and not requiring any emergent interventions Eyes: Normal inspection ENT: Ears normal Nose normal Pharynx normal Neck: Normal inspection Supple Full ROM Cardiovascular: Tachycardic, irregularly irregular rhythm, no extra sounds No murmurs rubs or gallops Focal PMI Respiratory: Rales throughout lung zhang, tachypneic No retractions Abdomen: Soft, non-tender, non-distended Normal active bowel sounds Back: Normal inspection Without tenderness or deformity Skin: Color normal Warm and dry Extremities: MUÑOZ with equal pulses in the upper and lower extremities bilaterally Neuro: No gross motor/sensory deficit GCS 15 No cerebellar deficits Alert and oriented to person, place, time and situation. Medical Decision Making and Emergency Department Course ED Department Course Pt presents with shortness of breath. On exam patient has rales noted throughout the lung f ields. I consider pulmonary etiology, pulmonary embolism, adult respiratory distress syndrom e, pneumothorax, pleural effusion, pulmonary fibrosis, cardiac etiology, congestive heart fa ilure, myocardial infarction, metabolic etiology, diabetic ketoacidosis, uremia, acidosis, s epsis, aortic dissection, lumbar strain/sprain, and anemia as a cause of dyspnea in this pat ient. This is a partial list of diagnoses considered. Will obtain labs, imaging, EKG, and co ntinue monitoring patient. Patient is stable and agreeable with plan of care at this time. Patient has elevated blood pressure during exam. This may be secondary to anxiety, pain, s tress, uncontrolled HTN, or poor medication compliance. I discussed this with the patient a nd the risks of untreated elevated blood pressure. They will follow up with their physician for further evaluation and possible treatment. 8:30 PM. Labs reviewed. Patient with mild anemia. Chemistry unremarkable. Troponin negative . BNP mildly elevated at 194. 9:32 PM. CXR reviewed showing mild pulmonary edema. I am suspicious that this is likely a C OPD exacerbation with component of CHF. Will give patient dose of lasix. Will also give dilt iazem. 10:20 PM. Patient continues to have significant pain in the back. Will give dose of morphin e and oxycodone for pain control and plan for admission to the hospital. Patient is agreeabl e with plan for admission at this time. 10:[address] of the L-spine reviewed showing a mild compression deformity of T12 which is n ew compared to previous imaging. 11:01 PM. Spoke with , hospitalist, regarding patient case. He accepts patien t for admission and will see him in the ED. Medications sodium chloride 0.9 % flush 10 mL (not administered) calcitonin (salmon) (MIACALCIN) nasal spray 1 spray (not administered) aspirin EC tablet 81 mg (not administered) digoxin (LANOXIN) tablet 0.125 mg (not administered) co-enzyme Q-10 capsule 200 mg (not administered) doxazosin (CARDURA) tablet 2 mg (not administered) lisinopril (ZESTRIL) tablet 2.5 mg (not administered) methocarbamol (ROBAXIN) tablet 1,500 mg (not administered) multivitamin with minerals tablet 1 tablet (not administered) spironolactone (ALDACTONE) tablet 12.5 mg (not administered) atorvastatin (LIPITOR) tablet 20 mg (not administered) umeclidinium-vilanterol (ANORO ELLIPTA) 62.5-25 MCG/INH inhaler 1 puff (not administered) ipratropium-albuterol (DUO-NEB) 0.5-2.5 mg/3mL nebulizer solution 3 mL (not administered) furosemide (LASIX) injection 40 mg (not administered) acetaminophen (TYLENOL) tablet 650 mg (not administered) Or acetaminophen (TYLENOL) suppository 650 mg (not administered) ondansetron (ZOFRAN-ODT) disintegrating tablet 4 mg (not administered) Or ondansetron (ZOFRAN) injection 4 mg (not administered) zolpidem (AMBIEN) tablet 5 mg (not administered) polyethylene glycol (GLYCOLAX) packet 17 g (not administered) diltiazem (CARDIZEM CD) 24 hr capsule 240 mg (not administered) senna (SENOKOT) 8.6 MG tablet 17.2 mg (not administered) lactulose (CHRONULAC) 10 GM/15ML solution 30 g (not administered) oxyCODONE-acetaminophen (PERCOCET) 5-325 MG per tablet 1 tablet (not administered) And oxyCODONE (ROXICODONE) immediate release tablet 5 mg (not administered) Lidocaine (SALONPAS) 4 % patch 1 patch (not administered) furosemide (LASIX) injection 80 mg (80 mg Intravenous Given 11/11/172204) diltiazem (CARDIZEM) injection 20 mg (20 mg Intravenous Given 11/11/172204) morphine (MS CONTIN) 12 hr tablet 30 mg (30 mg Oral Given 11/11/172232) oxyCODONE (ROXICODONE) immediate release tablet 10 mg (10 mg Oral Given 11/11/172232) digoxin (LANOXIN) injection 0.25 mg (0.25 mg Intravenous Given 11/11/172235) senna-docusate (PERICOLACE) 8.6-50 MG per tablet 3 tablet (not administered) lactulose (CHRONULAC) 10 GM/15ML solution 30 g (not administered) digoxin (LANOXIN) injection 0.25 mg (not administered) Patient Vitals for the past 24 hrs: BP Temp Temp src Pulse Resp SpO2 Height Weight 11/12/17 0327 - - - 90 16 95 % - - 11/12/17 0255 - - - 107 - - - - 11/12/17 0146 140/70 98.2 F (36.8 C) Oral 120 18 - 1.753 m (5' 9") 76 kg (167 lb 9.6 oz ) 11/12/17 0113 128/73 - - 100 - 96 % - - 11/12/17 0013 142/74 - - 104 - 97 % - - 11/11/17 2313 120/74 - - 96 - 97 % - - 11/11/17 2213 121/72 - - 112 - 98 % - - 11/11/17 2205 - - - 113 - - - - 11/11/17 1928 (!) 161/93 - - 95 22 95 % - - 11/11/17 1549 121/73 99.2 F (37.3 C) Temporal 107 20 96 % - 79.4 kg (175 lb 0.7 oz) 11/11/17 1528 - - - - - - - 79.4 kg (175 lb) Records Reviewed Old ED records reviewed (Using the electronic record system of [facility], Janet antoine reviewed the records with regard to the past medical/surgical history, previous medic ations, and allergies). Nursing notes reviewed for chief complaint, medications, clinical presentation and vital si gns Laboratory Evaluation Results Procedure Component Value Ref Range Date/Time Cardiac Panel [[id number]] (Abnormal) Collected: 11/11/171907 Order Status: Completed Updated: 11/11/172021 WBC 8.78 3.80 - 11.00 K/uL RBC 5.07 4.20 - 5.70 M/uL HGB 10.5 (L) 13.2 - 17.0 g/dL HCT 35.4 (L) 39.0 - 50.0 % MCV 69.8 (L) 80.0 - 100.0 fl MCH 20.6 (L) 27.0 - 34.0 pg MCHC 29.6 (L) 32.0 - 35.5 g/dL RDW SD 47.3 37 - 53 fl PLT 315 150 - 400 K/uL MPV 7.4 fl DIFF TYPE AUTOMATED NEUTROPHILS 72.80 % LYMPHOCYTES 12.62 % MONOCYTES 13.05 % EOSINOPHILS 1.25 % BASOPHILS 0.28 % NEUTROPHILS ABS 6.39 1.90 - 7.40 K/uL LYMPHOCYTES ABS 1.11 1.00 - 3.90 K/uL MONOCYTES ABS 1.15 (H) 0.00 - 0.80 K/uL EOSINOPHILS ABS 0.11 0.00 - 0.50 K/uL BASOPHILS ABS 0.03 0.00 - 0.10 K/uL MORPHOLOGY 2+ Platelet Estimate ADEQUATE Diff Comment FEW SCHISTOCYTES SEEN SODIUM 136 135 - 145 mmol/L POTASSIUM 4.4 3.5 - 4.9 mmol/L CHLORIDE 98 (L) 99 - 109 mmol/L CO2 35 (H) 23 - 32 mmol/L ANION GAP AGAP 7 5 - 20 mmol/L GLUCOSE 103 (H) 65 - 99 mg/dL BUN 16 8 - 25 mg/dL CREATININE 0.77 0.70 - 1.30 mg/dL BUN/CREAT 21 CALCIUM 9.1 8.5 - 10.5 mg/dL TOTAL PROTEIN 6.6 6.3 - 8.2 g/dL Albumin 3.2 (L) 3.3 - 4.8 g/dL GLOBULIN 3.4 1.3 - 4.9 g/dL A/G 0.9 (L) 1.0 - 2.4 TBIL 0.6 0.1 - 1.5 mg/dL ALK PHOS 209 (H) 35 - 115 U/L AST 27 10 - 45 U/L ALT 27 10 - 65 U/L EGFR >60 >60 mL/min/1.73m2 CPK 73 55 - 400 U/L INR 4.8 APTT 44 (H) 23 - 32 seconds MMB 2.9 0.5 - 3.6 ng/mL CK-MB Index 4.0 Troponin I, Lab [[id number]] Collected: 11/11/171907 Order Status: Completed Specimen: Blood Updated: 11/11/171950 TROPONIN I 0.033 0.00 - 0.10 ng/mL BNP [[id number]] (Abnormal) Collected: 11/11/171907 Order Status: Completed Specimen: Blood Updated: 11/11/171947 BRAIN NATRIURETIC PEPTIDE 194 (H) 0 - 100 pg/mL I personally reviewed the lab results and they have been posted to the chart. Pertinent po sitive and negative findings have been addressed appropriately. Radiology and EKG Evaluation Imaging Results CT L-Spine without contrast (Final result) Result time 11/11/17 22:36:31 Final result by Stew Freed DO (11/11/17 22:36:31) Impression: 1. Mild compression deformity of T12 which is new from the prior exam. 2. Chronic compression deformity of L1, not significantly changed. 3. Multilevel degenerative changes as above with slight progression from the prior exam. Narrative: RUDY MARTI 1930 87 years Male 11/11/2017 9:[address] LUMBAR SPINE WO CONTRAST INDICATION: Back pain COMPARISON: X-ray lumbar spine 11/14/[address] lumbar spine 10/23/2012 TECHNIQUE: CT scan of the lumbar spine without contrast.1.5-mm thick helically acquired axi al images were performed of the lumbar spine in soft tissue and bone algorithm. Coronal and sagittal reconstructions were performed at 2 mm thick slices. Dose reduction techniques we re used including automated exposure control, iterative reconstruction technique, and/or aut omated adjustable mAs based on patient size. FINDINGS: Dextro levoscoliosis of the lumbar spine. There is 1 cm of right lateral subluxat ion of L2 on L3. There is 5 mm anterior subluxation of L4 and L5. There is a compression def ormity of the T12 vertebral body with approximately 25% loss of vertebral body height. This is new from the prior exam. Mild to moderate chronic compression deformity of the L1 vertebr al body is not significantly changed. There is partial fusion across the T12-L1 disc space. Severe disc space narrowing demonstrated at L2-L3 on the left with adjacent sclerosis and pr ominent left lateral disc osteophyte, slightly progressed from the prior exam. Severe disc s pace narrowing and should on the right at L4-L5. T12-L1: Broad-based posterior disc osteophyte complex. Minimal narrowing of the thecal sac. There is mild right neural foraminal narrowing. The left neural foramen is patent. L1-L2: Broad-based disc osteophyte complex, eccentric to the left. No significant spinal ca nal stenosis. Left subarticular stenosis. Moderate narrowing of the left neural foramen. The right neural foramen is patent. L2-L3: Broad-based disc osteophyte complex, eccentric to the left. No cement spinal canal s tenosis. There is mild left neural foraminal stenosis. The right neural foramen is patent. L3-L4: Circumferential disc bulge. No significant spinal canal stenosis. Mild right neural foraminal stenosis. Left neural foramen is patent. L4-L5: Circumferential disc bulge. No significant spinal canal stenosis. Mild to moderate r ight neural foraminal stenosis. The left neural foramen is patent. Moderate right facet arth ropathy. L5-S1: Mild circumferential disc bulge. No significant spinal canal or neural foraminal cale nosis. Abdominal aorta is noted to be atherosclerotic, but without significant aneurysm. Chronic d iverticulosis noted. XR Chest PA and Lateral (Final result) Result time 11/11/17 19:37:45 Final result by Navdeep Cantor MD (11/11/17 19:37:45) Impression: Pulmonary findings suggesting mild fluid overload. RADIA Electronically signed by Navdeep Cantor MD on Nov 11 2017 7:37PM Referring Provider Teresita ne: [phone] ID: [id number] Narrative: EXAM: CHEST RADIOGRAPHY EXAM DATE: 11/11/2017 07:02 PM. CLINICAL HISTORY: SOB. COMPARISON: 07/29/2017 chest x-ray. TECHNIQUE: 2 views. FINDINGS: Lungs/Pleura: Low lung volumes. There is pulmonary vascular congestion noting obscured vasc ular markings. No lobar consolidation. No pleural effusion or pneumothorax. Mediastinum: Heart and mediastinal contours are unremarkable. Other: None. Preliminary result by Navdeep Cantor MD (11/11/17 19:36:40) Impression: Pulmonary findings suggesting mild fluid overload. RADIA Read by Navdeep Cantor MD on Nov 11 2017 7:36PM 2210 Atrial fibrillation with RVR at 126bpm Normal QRS and [place] Normal QT and QTc Normal ST/T without acute ischemic changes An EKG dated 08/22/2016 is unchanged in comparison to the EKG obtained today. Interpreted by Eddie Rondon DO. ED Diagnoses Final diagnoses COPD with acute exacerbation (HCC) Acute pulmonary edema (HCC) T12 compression fracture (HCC) Multiple falls Intractable low back pain Shortness of breath Atrial fibrillation with RVR (HCC) Disposition: ED Disposition ED Disposition Condition Comment Admit/Observation Requested Unit:: Acute Care Bed request special needs: none Patient Class: Inpatient [101] Diagnosis?: Shortness of breath with congestive heart failure exacerbation likely related to poor rate control with atrial fibrillation Diagnosis?: Bilateral pedal edema Diagnosis?: COPD with oxygen dependence This document has been prepared with a voice recognition system. The possibility of "sound alike" senior recruiter errors, addition and/or deletions may occur. If there is any question p lease contact the author of the document. Additional Documentation Procedures Attending Provider Note: I, Eddie Rondon DO personally performed the services describe d in this documentation, as scribed by Destinee Barrios in my presence, and it is both accura te and complete. Chart Reviewed and Completed: 11/12/2017 3:29 AM Scribe: Rita Tapia, scribing for and in the presence of Eddie Rondon DO. Signed by: Rita Mi 11/11/2017 12:17 AM Eddie Rondon. Eddie Rondon DO 11/12/17 0329 onversion Transac tion, Provider Unknown - 11/11/2017 6:53 PM PDTFormatting of this note might be different f rom the original. ED Notes by Savanah Munroe RN at 11/11/171852 Author: Savanah Munroe RN Service: (none) Author Type: Registered Nurse Filed: 11/11/171854 Date of Service: 11/11/171852 Status: Signed Semiconductor Wafers Etch Operator: Savanah Munroe RN (Registered Nurse) Pt currently lives alone but the past couple of days has been declining. Family states pt S aO2 will go to 70s just getting out the w/c or recliner. Pt states he hasn't felt safe showe ring d/t low O2 last 4 days,. Pt has had a difficult time eating d/t SOB and weakness. Famil y is trying to set up care. Pt also has had worsening chronic back pain making it difficult for ADLs. Pt is currently taking about 2 oxycodone 5 mg s every 3 hours. Savanah Munroe RN 11/11/171854 regory Bernard PA-C - 11/11/2017 6:43 PM PDTFormatting of this note might be different from the o riginal. ED Provider Notes by Gregory Bernard PA-C at 11/11/171842 Author: Gregory Bernard PA-C Service: Emergency Department Author Type: Physician Assista nt Filed: 11/11/171845 Date of Service: 11/11/171842 Status: Signed Semiconductor Wafers Etch Operator: Gregory Bernard PA-C (Physician Window Installation Subcontractor) Cosigner: Bang Allen DO at 11/11/171850 Procedures Chief Complaint Patient presents with Shortness of Breath Exam= Neurovascularly intact. Alert. Oriented. Denies other symptoms. I have discussed the initial plan with the patient---The patient expresses understanding an d is agreeable. The patient denies the need for pain management at this time. Provider taking over care should evaluate for need of further workup. The patient will be moved to an appropriate zone. Past Medical History Diagnosis Date Atrial fibrillation (HCC) Heart attack (HCC) Hepatitis History of stomach ulcers Hypertension Irregular heart beat Joint pain Unspecified visual disturbance Gregory Bernard PA-C 11/11/171845 onversion Huseyin rivas Provider Unknown - 11/11/2017 3:28 PM PDTFormatting of this note might be differ ent from the original. ED Triage Notes by Ronan Koenig RN at 11/11/17 152 Author: Ronan Koenig RN Service: (none) Author Type: Registered Nurse Filed: 11/11/17 1528 Date of Service: 11/11/171527 Status: Signed Semiconductor Wafers Etch Operator: Ronan Koenig RN (Registered Nurse) [email or web address] docume nted in this encounter Miscellaneous Notes Plan of Care - Conversion Transaction, Provider Unknown - 11/14/2017 4:29 AM PDT Plan of Care by Enzo Bassett RN at 11/14/17428 Author: Enzo Bassett RN Service: (none) Author Type: Registered Nurse Filed: 11/14/17428 Date of Service: 11/14/17428 Status: Signed Semiconductor Wafers Etch Operator: Enzo Bassett RN (Registered Nurse) Problem: Pain Goal: Patient's pain/discomfort is manageable Assess and monitor patient's pain using appropriate pain scale. Collaborate with interdisci plinary team and initiate plan and interventions as ordered. Re-assess patient's pain level approximately 1-2 hours after pain management intervention. Premedicate as needed. Outcome: Progressing Assessed pt's pain q 4 hrs. Pain management intervention prn. nitia l Assessments - Wing Micah Jain MD - 11/13/2017 10:09 PM PDTFormatting of this note might be d ifferent from the original. 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, 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 [facility]) Prior living situation Type of Home: Home one story Lives With: Alone Home Equipment: Cane quad Current conditions requiring inpatient rehabilitation History leading to admission: s/p pneumonia with deconditioning and gait disturbance Problem List: Patient Active Problem List Diagnosis Compression fracture of lumbar vertebra (HCC) Facet arthropathy, lumbar Lumbar degenerative disc disease Spondylolisthesis of lumbar region Sacroiliac joint pain Shortness of breath Elevated diaphragm Personal history of tobacco use, presenting hazards to health T12 compression fracture (HCC) Chronic atrial fibrillation (HCC) Pulmonary hypertension (HCC) COPD, severe (HCC) Chronic respiratory failure with hypoxia (HCC) Hypertension Acute on chronic diastolic heart failure (HCC) Drug-induced constipation Risk for medical/clinical complications: DVT and/or PE and Infection Additional reasoning and justification for inpatient rehab admission: Medication management of chronic conditions, Incision care, Bowel/bladder management and Anticoagulation manageme nt Current Functional Status: Functional Mobility Bed Mobility Rolling: Moderate assist, To left (elevated HOB) Supine to Sit: Max assist (BLEs OOB & trunk to upright) Transfers Sit to/from Stand: Moderate assist (to arise OR lower), x 1 person Bed to/from Chair: Moderate assist (to arise OR lower), x 1 person Mobility Weight Bearing Status: WBAT RLE, WBAT LLE Ambulation Assistance: Moderate assist, X1 Maximal Ambulation Distance (feet): 4ft Total Ambulation Distance (feet): 4ft Distance limited by?: Patient's ability (pain) Pattern: Antalgic, Forward flexed, Left swing foot doesn't pass stance foot, Right swing fo ot doesn't pass stance foot, Decreased garland, Step to, Alternating Assistive Device: Walker front wheeled Precautions Spinal Precautions: TLSO on when upright, Lumbar Other Precautions: fall risk, SpO2>/= 88%, pre medicate for pain ADLs Therapy Assessment Vision-Basic Assessment Current Vision: Wears glasses Sensation Light Touch: No apparent deficits RUE Assessment RUE Assessment: Within Functional Limits LUE Assessment LUE Assessment: Within Functional Limits RLE Assessment RLE Assessment: Within Functional Limits LLE Assessment LLE Assessment: Within Functional Limits Swallowing/Cognition/Communication Cognition Overall Cognitive Status: Within Functional Limits Orientation Level: Oriented Oriented: x 4 Bladder/Bowel Urine Assessment Urinary Device: Urethral catheter Urine Color: Yellow/straw Urine Appearance: Clear Urine Odor: No odor Renal Symptoms: None Urinary Incontinence: No Bladder Scan Volume (mL): 230 mL (average 3x scan Post void residual) Stool Assessment Bowel Incontinence: Yes Stool Appearance: Type 3 - Sausage or snake-like with cracks Stool Color: Brown, Red Stool Amount: Medium Stool Source: Rectum Required interventions: Physical therapy: Frequency/Duration: 1 hours per day, 7 days per week for 10 days, with abbreviated session s or rest breaks on other days PRN Intervention gait training, neuromuscular reeducation, therapeutic exercise, transfer ronan lorena, patient education, family training and stair training Occupational therapy: Frequency/Duration: 1 hours per day, 7 days per week for 10 days, with abbreviated session s or rest breaks on other days PRN Intervention ADL training, patient education, family training, AE instruction, IADL retrai lorena and therapeutic exercise Speech therapy: Frequency/Duration: 1 hours per day, 7 days per week for 10 days, with abbreviated session s or rest breaks on other days PRN Intervention cognitive retraining Rehab nursing: Frequency/Duration: 24 hours per day, 7 days per week for duration of stay Intervention bowel/bladder management, medication management, patient education and family training Case management Interventions: assist with discharge planning, patient education and family education Prosthetics/Orthotics: As needed Recreation Therapy: PRN Estimated length of stay: 10 days Expected level of improvement: supervised Anticipated discharge destination: Home with spouse/significant other Post discharge services: Outpatient services: PT and OT MD indicates that information has been reviewed, MD concurs with information, and MD approv es the admission to [facility] Inpatient [facility]. Wing Demetra Jain MD 11/13/2017 10:11 PM lan of Care - Conversi on Transaction, Provider Unknown - 11/13/2017 1:15 PM PDTFormatting of this note might be d ifferent from the original. Plan of Care by Niranjan Espinoza RN at 11/13/171314 Author: Niranjan Espinzoa RN Service: (none) Author Type: Registered Nurse Filed: 11/13/171314 Date of Service: 11/13/171314 Status: Signed Semiconductor Wafers Etch Operator: Niranjan Espinoza RN (Registered Nurse) Problem: Safety Goal: Patient will be injury free during hospitalization Assess and monitor vitals signs, neurological status including level of consciousness and o rientation. Assess patient's risk for falls and implement fall prevention plan of care and i nterventions per hospital policy. Ensure arm band on, uncluttered walking paths in room, adequate room lighting, call light a nd overbed table within reach, bed in low position, wheels locked, side rails up per policy, and non-skid footwear provided. Outcome: Progressing Bed in lowest position with wheels locked, call light in reach. Bed alarm present. lan o f Care - Conversion Transaction, Provider Unknown - 11/13/2017 11:09 AM PDTFormatting of thi s note might be different from the original. Plan of Care by SN Zari at 11/13/171108 Author: SN Zari Service: (none) Author Type: Heavy Equipment Diesel Mechanic Filed: 11/13/171108 Date of Service: 11/13/171108 Status: Signed Semiconductor Wafers Etch Operator: SN Zari (Heavy Equipment Diesel Mechanic) Problem: Safety Goal: Patient will be injury free during hospitalization Assess and monitor vitals signs, neurological status including level of consciousness and o rientation. Assess patient's risk for falls and implement fall prevention plan of care and i nterventions per hospital policy. Ensure arm band on, uncluttered walking paths in room, adequate room lighting, call light a nd overbed table within reach, bed in low position, wheels locked, side rails up per policy, and non-skid footwear provided. Outcome: Progressing Arm bands on pt, LOC and neuro function assessed. Arm band on, room is uncluttered and well lit. Table, phone, and call light within reach. Bed locked in lowest position with side shelley ls 2/4 up. lan o f Care - Conversion Transaction, Provider Unknown - 11/12/2017 10:28 PM PDTFormatting of thi s note might be different from the original. Plan of Care by Enzo Bassett RN at 11/12/172227 Author: Enzo Bassett RN Service: (none) Author Type: Registered Nurse Filed: 11/12/172227 Date of Service: 11/12/172227 Status: Signed Semiconductor Wafers Etch Operator: Enzo Bassett RN (Registered Nurse) Problem: Safety Goal: Patient will be injury free during hospitalization Assess and monitor vitals signs, neurological status including level of consciousness and o rientation. Assess patient's risk for falls and implement fall prevention plan of care and i nterventions per hospital policy. Ensure arm band on, uncluttered walking paths in room, adequate room lighting, call light a nd overbed table within reach, bed in low position, wheels locked, side rails up per policy, and non-skid footwear provided. Outcome: Progressing Pathway clear. Call light in reach. Calls appropriately. Remains free of injury this stay. Bed in low position. Hourly rounding. lan o f Care - Conversion Transaction, Provider Unknown - 11/12/2017 3:35 PM PDTFormatting of thi s note might be different from the original. Plan of Care by Maria Dolores Morrissey RN at 11/12/171534 Author: Maria Dolores Morrissey RN Service: (none) Author Type: Registered Nurse Filed: 11/12/171534 Date of Service: 11/12/171534 Status: Signed Semiconductor Wafers Etch Operator: Maria Dolores Morrissey RN (Registered Nurse) Problem: Pain Goal: Patient's pain/discomfort is manageable Assess and monitor patient's pain using appropriate pain scale. Collaborate with interdisci plinary team and initiate plan and interventions as ordered. Re-assess patient's pain level approximately 1-2 hours after pain management intervention. Premedicate as needed. Intervention: Include patient/family/caregiver in decisions related to pain management TLSO when OOB, percocet iscel laneous - Conversion Transaction, Provider Unknown - 11/12/2017 3:00 PM PDTFormatting of th is note might be different from the original. Treatment Plan by Dulce Sanders PT at 11/12/17 1500 Author: Dulce Sanders PT Service: (none) Author Type: Physical Therapist Filed: 11/12/172025 Date of Service: 11/12/171499 Status: Signed Semiconductor Wafers Etch Operator: Dulce Sanders PT (Physical Therapist) PHYSICAL THERAPY EVALUATION PT Received On: 11/12/17 Reason for Treatment: Other (comment) (compression fx) Requires PT Follow Up: Awaiting tx order Follow up PT Only?: No Focus for Next Treatment: Patient Education (see comment), Formal Balance Assessment, Bed M obility Technique, Transfer Technique (gait progression, brace education/donning ) PT Eval/Reassessment Date: 11/12/17 Assistance Required: 1 person, 2 person Sugar Cane Planter Machine Operator Needed: No Recommendations: IRF, Acute OT Barriers to Discharge: Physical Deficits Impacting Functional Baldwin, Self-care Defic its Impacting Functional Baldwin, Equipment Needs (see comment), Lack of Family Support /Training, Home Design (see comment), Pain Recommendation Comments: Pt with excellent motivation for participation in all therapeutic intervention despite significant increase in pain with facilitated mobilization. Pt at mod I baseline functional independence with family willing to increase involvement and provide moss pport at d/c as necessary. Pt performance during initial intervention suggesting ability to progress to tolerate three hours of therapy daily indicating good candidacy for IRF. Plan Treatment/Interventions: Amb with mobility aide, Assist d/c plannning, Balance training, Be d mobility training, Family training, Gait training, Monitor O2 sats, Provide HEP, Review HE P, Review precautions, Stair training, Therapeutic exercise, Transfer training PT Frequency: 5-7x/wk, Once per day Care Duration (# of days): 7 # of days Summary Comments: Pt is an 87 yo M with PMH including a-fib, CHF, COPD on 2LPM nc at home, pulmonar y HTN and chronic L1 compression fracture. Pt presenting to ED with progressive SOB x 3 days and acute high frequency of falling and severe pain at lower back. Imaging reveals acute T1 2 compression fracture currently under conservative management with TLSO during OOB mobility , of note, no alteration to chronic L1 compression fx from previous imaging. Pt received rec lined in bed on 2LPM nc noting 4/10 pain at lumbar spine and agreeable to PT session with re quest for slow movements and explanation prior to mobility tasks. Pt with good intact streng th, sensation and coordination throughout allowing him to complete log rolling and transitio n to sitting with fair compliance of movement technique. Pt with good sitting balance withou t physical assistance required and able to stabilize weight bearing at AD with encouragement . Pt demonstrating excellent participation during all mobility tasks with pain current limit ing presentation. Pt returned end of session to reclined in bedside chair, donning TLSO with call light in reach and RN aware. Pt able to maintain SpO2 >/= 89% for duration of treatmen t and pain at departure 11/13. Precautions Spinal Precautions: TLSO on when upright, Lumbar Other Precautions: fall risk, SpO2>/= 88%, pre medicate for pain Cognition Overall Cognitive Status: Within Functional Limits Orientation Level: Oriented Oriented: x 4 Assessment of Patient Status Assessment of Patient Status: Pain, Precautions, Decreased functional mobility, Decreased ADL status Prognosis: Should progress with skilled therapy intervention Home Environment Type of Home: Home one story Home Exterior Layout: 1-3 steps, Rail none (1 CALE) Home Interior Layout: Lives on main level with bedroom/bathroom Bathroom Shower/Tub: Tub/shower unit Bathroom Toilet: Standard Bathroom Accessibility: Accessible via walker Home Equipment: Cane quad Prior Function Level of Baldwin: Modified independent with functional mobility, Modified independent with ADLs, Assist with IADLs, Driving in community (program development manager as needed, 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 jose pineda) Falls in Past Year: Yes Lives With: Alone Receives Help From: (son lives in [place], [place]) ADL Assistance: Independent Home ADL's: Need assistance Meal Prep: (microwave meals recently) Employment: Retired for age Leisure: Hobbies-yes (Comment) (completes crafting baskets ) RUE Assessment: Within Functional Limits LUE Assessment: Within Functional Limits RLE Assessment: Within Functional Limits LLE Assessment: Within Functional Limits Sensation Light Touch: No apparent deficits Vision Current Vision: Wears glasses FUNCTIONAL MOBILITY Bed Mobility Rolling: Moderate assist, To left (elevated HOB) Supine to Sit: Max assist (BLEs OOB & trunk to upright) Transfers Sit to/from Stand: Moderate assist (to arise OR lower), x 1 person Bed to/from Chair: Moderate assist (to arise OR lower), x 1 person Ambulation Weight Bearing Status: WBAT RLE, WBAT LLE Maximal Ambulation Distance (feet): 4ft Total Ambulation Distance (feet): 4ft Ambulation Assistance: Moderate assist, X1 Distance limited by?: Patient's ability (pain) Pattern: Antalgic, Forward flexed, Left swing foot doesn't pass stance foot, Right swing fo ot doesn't pass stance foot, Decreased garland, Step to, Alternating Assistive Device: Walker front wheeled THERAPEUTIC EXERCISE Supine-Exercise Type: Ankle pumps, Heel slides Supine-Exercise Comments: 2x8 BLE Activity Tolerance: Patient limited by pain, Patient limited by fatigue Nurse Made Aware: SELAM chang Safety Devices in Place: Yes Type of Devices: (call light in reach) Restraints Initially in Place: No The patient reported pain rated at a 4/10 at rest, increases to 7/10 during mobility and lo wers to 5/10 upon rest in bedside chair. Other measures provided to relieve pts pain include d: distraction, repositioning Education Completed: Education Topics: [x] Rationale for PT [x] PT POC [x] DC planning: pt considerin g IRF rec [x] Precautions [x] Exercises [x] Bed mobility [x] Transfer training with hand placement [x] Gait training [] Stair training [] Use of gait belt [x] Other: TLSO donning/purpose Completed with: [x] Patient [] Spouse [] [...] Pt Will Go Supine To Sit: With minimal assist, With standby assistance Pt Will Go Sit To Supine: With moderate assist, With minimal assist Pt Will Logroll: With minimal assist Pt Will Transfer Sit to Stand: With minimal assist, With standby assist Pt Will Transfer Bed/Chair: With minimal assist, With standby assist Pt Will Ambulate: 11-25 feet, 150-200 feet Ambulate Level Assist: With moderate assist, With standby assist Ambulate with Assistive Device: Least restricitve device Low - 40593 Moderate - 15923 High - 78420 History [] no personal factors &/or comorbidities [x] 1-2 personal factors &/or comorbidit ies [] 3 or more personal factors &/or comorbidities Examination [] 1-2 elements [x] 3 elements [] 4 or more elements Clinical Presentation [] stable [x] evolving [] unstable Clinical Decision Making Complexity: [] Low 56463 [x] Moderate 18319 [] High 9 7163 lan o f Care - Conversion Transaction, Provider Unknown - 11/12/2017 3:27 AM PDTFormatting of thi s note might be different from the original. Plan of Care by Naina Lane RN at 11/12/17326 Author: Naina Lane RN Service: (none) Author Type: Registered Nurse Filed: 11/12/17326 Date of Service: 11/12/17326 Status: Signed [employer] Etch Operator: Naina Lane RN (Registered Nurse) Problem: Pain Goal: Patient's pain/discomfort is manageable Assess and monitor patient's pain using appropriate pain scale. Collaborate with interdisci plinary team and initiate plan and interventions as ordered. Re-assess patient's pain level approximately 1-2 hours after pain management intervention. Premedicate as needed. Outcome: Progressing Pt states when sitting still his pain is minimal. Pt resting and not in need of interventio n at this time. WCTM. docume nted in this encounter Plan of Treatment +--------+---------+ + + + | Date | Type | Specialty | Care Team | Description | +--------+---------+ + + + | 06/22/ | Office | Cardiology | Jody Lebron | | | 2019 | Visit | | [address] | | | | | | [address] | | | | | | [place] [address] | | | | | | [phone] | | | | | | | | +--------+---------+ + + + documented as of this encounter Procedures + +--------+ + + + | Procedure Name | Priori | Date/Time | Associated Diagnosis | Comments | | | ty | | | | + +--------+ + + + | EXTERNAL LAB: CBC | Routin | 11/14/2017 | | Results for this | | | e | 5:15 AM | | procedure are in the | | | | PDT | | results section. | + +--------+ + + + | PROTIME INR | Routin | 11/14/2017 | | Results for this | | | e | 5:15 AM | | procedure are in the | | | | PDT | | results section. | + +--------+ + + + | BASIC METABOLIC | Routin | 11/14/2017 | | Results for this | | PANEL | e | 5:15 AM | | procedure are in the | | | | PDT | | results section. | + +--------+ + + + | PROTIME INR | Routin | 11/13/2017 | | Results for this | | | e | 1:08 PM | | procedure are in the | | | | PDT | | results section. | + +--------+ + + + | ECHO COMPLETE | Routin | 11/13/2017 | | Results for this | | | e | 8:21 AM | | procedure are in the | | | | PDT | | results section. | + +--------+ + + + | EXTERNAL LAB: CBC | Routin | 11/13/2017 | | Results for this | | | e | 5:17 AM | | procedure are in the | | | | PDT | | results section. | + +--------+ + + + | PROTIME INR | Routin | 11/13/2017 | | Results for this | | | e | 5:17 AM | | procedure are in the | | | | PDT | | results section. | + +--------+ + + + | PHOSPHORUS | Routin | 11/13/2017 | | Results for this | | | e | 5:17 AM | | procedure are in the | | | | PDT | | results section. | + +--------+ + + + | MAGNESIUM | Routin | 11/13/2017 | | Results for this | | | e | 5:17 AM | | procedure are in the | | | | PDT | | results section. | + +--------+ + + + | BASIC METABOLIC | Routin | 11/13/2017 | | Results for this | | PANEL | e | 5:17 AM | | procedure are in the | | | | PDT | | results section. | + +--------+ + + + | EXTERNAL LAB: CBC | Routin | 11/12/2017 | | Results for this | | | e | 2:15 AM | | procedure are in the | | | | PDT | | results section. | + +--------+ + + + | PROCALCITONIN, SERUM | Routin | 11/12/2017 | | Results for this | | | e | 2:15 AM | | procedure are in the | | | | PDT | | results section. | + +--------+ + + + | PHOSPHORUS | Routin | 11/12/2017 | | Results for this | | | e | 2:15 AM | | procedure are in the | | | | PDT | | results section. | + +--------+ + + + | MAGNESIUM | Routin | 11/12/2017 | | Results for this | | | e | 2:15 AM | | procedure are in the | | | | PDT | | results section. | + +--------+ + + + | BASIC METABOLIC | Routin | 11/12/2017 | | Results for this | | PANEL | e | 2:15 AM | | procedure are in the | | | | PDT | | results section. | + +--------+ + + + | ECG 12 LEAD | Routin | 11/11/2017 | | Results for this | | | e | 10:06 PM | | procedure are in the | | | | PDT | | results section. | + +--------+ + + + | CT LUMBAR SPINE WO | Routin | 11/11/2017 | | Results for this | | CONTRAST | e | 9:51 PM | | procedure are in the | | | | PDT | | results section. | + +--------+ + + + | HISTORICAL LAB PANEL | Routin | 11/11/2017 | | Results for this | | RESULT | e | 7:08 PM | | procedure are in the | | | | PDT | | results section. | + +--------+ + + + | TROPONIN I | Routin | 11/11/2017 | | Results for this | | | e | 7:08 PM | | procedure are in the | | | | PDT | | results section. | + +--------+ + + + | B TYPE NATRIURETIC | Routin | 11/11/2017 | | Results for this | | PEPTIDE | e | 7:08 PM | | procedure are in the | | | | PDT | | results section. | + +--------+ + + + | XR CHEST 2 VIEWS | Routin | 11/11/2017 | | Results for this | | | e | 7:01 PM | | procedure are in the | | | | PDT | | results section. | + +--------+ + + + documented in this encounter Results Protime INR (11/14/2017 5:15 AM PDT) + + + + + + | Component | Value | Ref Range | Performed | Pathologist | | | | | At | Signature | + + + + + + | INR | 5.8 ()Comment: | | EXTERNAL | | | | REFERENCE RANGE:0.9 - | | LAB | | | | 1.2 | | | | | | NON-ANTICOAGULATED2.0 | | | | | | - 3.0 ALL OTHER | | | | | | THERAPEUTIC | | | | | | INDICATIONS2.5 - 3.5 | | | | | | MECHANICAL HEART VALVES, | | | | | | RECURRENT OR SYSTEMIC | | | | | | EMBOLISMINR PHONED TO | | | | | | 6RP EDINSON AT 0630 BY | | | | | | LJREAD BACK RESULTS | | | | | | VERIFIEDTesting | | | | | | performed at [facility] | | | | | | [address];[place], [place] | | | | | | [address] | | | | + + + + + + + + | Specimen | + + | Blood specimen | | (specimen) | + + + +---------+ + + | Performing | Address | City/State/Zipcode | Phone Number | | Organization | | | | + +---------+ + + | EXTERNAL LAB | | | | + +---------+ + + External Lab: CBC (11/14/2017 5:15 AM PDT) + + +---- + + + | Component | Value | Ref Range | Performed | Pathologist | | | | | At | Signature | + + +---- + + + | WBC | 10.04 | 3.8 0 - 11.00 | EXTERNAL | | | | | K/u L | LAB | | + + +---- + + + | Non- | 4.96 | 4.2 0 - 5.70 | EXTERNAL | | | Red Blood | | M/u L | LAB | | | Cells | | | | | | Counted | | | | | + + +---- + + + | Hemoglobin | 10.4 (L) | 13. 2 - 17.0 | EXTERNAL | | | | | g/d L | LAB | | + + +---- + + + | Hematocrit, | 34.1 (L) | 39. 0 - 50.0 % | EXTERNAL | | | POC | | | LAB | | + + +---- + + + | MCV | 68.7 (L) | 80. 0 - 100.0 fl | EXTERNAL | | | | | | LAB | | + + +---- + + + | MCH | 21.0 (L) | 27. 0 - 34.0 pg | EXTERNAL | | | | | | LAB | | + + +---- + + + | MCHC | 30.6 (L) | 32. 0 - 35.5 | EXTERNAL | | | | | g/d L | LAB | | + + +---- + + + | RDW-CV | 46.8 | 37 - 53 fl | EXTERNAL | | | | | | LAB | | + + +---- + + + | Platelet | 300 | 150 - 400 K/uL | EXTERNAL | | | Count | | | LAB | | | Plasma | | | | | + + +---- + + + | MPV | 7.8 | fl | EXTERNAL | | | | | | LAB | | + + +---- + + + | Differentia | AUTOMATED | | EXTERNAL | | | l Type | | | LAB | | + + +---- + + + | % Segmented | 77.74 | % | EXTERNAL | | | | | | LAB | | | Neutrophils | | | | | + + +---- + + + | % | 11.31 | % | EXTERNAL | | | Lymphocytes | | | LAB | | + + +---- + + + | % Monocytes | 9.81 | % | EXTERNAL | | | | | | LAB | | + + +---- + + + | % | 0.82 | % | EXTERNAL | | | Eosinophils | | | LAB | | + + +---- + + + | % Basophils | 0.32 | % | EXTERNAL | | | | | | LAB | | + + +---- + + + | Absolute | 7.80 (H) | 1.9 0 - 7.40 | EXTERNAL | | | Segmented | | K/u L | LAB | | | Neutrophils | | | | | + + +---- + + + | Absolute | 1.14 | 1.0 0 - 3.90 | EXTERNAL | | | Lymphocytes | | K/u L | LAB | | + + +---- + + + | Absolute | 0.99 (H) | 0.0 0 - 0.80 | EXTERNAL | | | Monocytes | | K/u L | LAB | | + + +---- + + + | Absolute | 0.08 | 0.0 0 - 0.50 | EXTERNAL | | | Eosinophils | | K/u L | LAB | | + + +---- + + + | Absolute | 0.03 | 0.0 0 - 0.10 | EXTERNAL | | | Basophils | | K/u L | LAB | | + + +---- + + + | RBC | 2+Comment: | | EXTERNAL | | | Morphology | HYPO2+MICRO2+ANISO1+OVAL | | LAB | | | | ONORMAL PLT MORPHTesting | | | | | | performed at [facility], [address] | | [address] | [address] [facility], | | | | | | [place] [address] | | | | | |ANISO | | | | | |1+ | | | | | |OVALO | | | | | |NORMAL PLT MORPH | | | | | |Testing performed at [facility], [address] [place] [address] | | | | | | | | | | + + +---- + + + + + | Specimen | + + | Blood specimen | | (specimen) | + + + +---------+ + + | Performing | Address | City/State/Zipcode | Phone Number | | Organization | | | | + +---------+ + + | EXTERNAL LAB | | | | + +---------+ + + Basic Metabolic Panel (11/14/2017 5:15 AM PDT) + + + + + + | Component | Value | Ref Range | Performed | Pathologist | | | | | At | Signature | + + + + + + | Na | 132 (L) | 135 - 145 | EXTERNAL | | | | | mmol/L | LAB | | + + + + + + | K | 4.5 | 3.5 - 4.9 | EXTERNAL | | | | | mmol/L | LAB | | + + + + + + | Cl | 92 (L) | 99 - 109 mmol/L | EXTERNAL | | | | | | LAB | | + + + + + + | CO2 | 38 (H) | 23 - 32 mmol/L | EXTERNAL | | | | | | LAB | | + + + + + + | Anion Gap | 7 | 5 - 20 mmol/L | EXTERNAL | | | | | | LAB | | + + + + + + | Glucose, | 110 (H) | 65 - 99 mg/dL | EXTERNAL | | | Fasting | | | LAB | | + + + + + + | BUN | 21 | 8 - 25 mg/dL | EXTERNAL | | | | | | LAB | | + + + + + + | Creatinine | 1.0 | 0.70 - 1.30 | EXTERNAL | | | | | mg/dL | LAB | | + + + + + + | BUN/Creatin | 21 | | EXTERNAL | | | ine Ratio | | | LAB | | + + + + + + | Calcium | 8.7 | 8.5 - 10.5 | EXTERNAL | | | | | mg/dL | LAB | | + + + + + + | Estimated | >60Comment: GFR <60: | mL/min/1.73m2 | EXTERNAL | | | GFR | CHRONIC KIDNEY DISEASE, | | LAB | | | | IF FOUND OVER A 3 MONTH | | | | | | PERIOD.GFR <15: KIDNEY | | | | | | FAILURE.FOR | | | | | | AMERICANS, MULTIPLY THE | | | | | | CALCULATED GFR BY | | | | | | 1.210.Testing performed | | | | | | at [facility], [address] | | | | | [facility], | | | | | | [place] [address] | | | | + + + + + + + + | Specimen | + + | Blood specimen | | (specimen) | + + + +---------+ + + | Performing | Address | City/State/Zipcode | Phone Number | | Organization | | | | + +---------+ + + | EXTERNAL LAB | | | | + +---------+ + + Protime INR (11/13/2017 1:08 PM PDT) + + + + + + | Component | Value | Ref Range | Performed | Pathologist | | | | | At | Signature | + + + + + + | INR | 6.7 ()Comment: | | EXTERNAL | | | | REFERENCE RANGE:0.9 - | | LAB | | | | 1.2 | | | | | | NON-ANTICOAGULATED2.0 | | | | | | - 3.0 ALL OTHER | | | | | | THERAPEUTIC | | | | | | INDICATIONS2.5 - 3.5 | | | | | | MECHANICAL HEART VALVES, | | | | | | RECURRENT OR SYSTEMIC | | | | | | EMBOLISMCALLED NURSING | | | | | | NIRANJAN DE LA TORRE AT | | | | | | 13:51 BY EW READ BACK | | | | | | RESULTS VERIFIEDTesting | | | | | | performed at [facility];[address] | | | | | [address];[place] | | | | | | [address] | | | | + + + + + + + + | Specimen | + + | Blood specimen | | (specimen) | + + + +---------+ + + | Performing | Address | City/State/Zipcode | Phone Number | | Organization | | | | + +---------+ + + | EXTERNAL LAB | | | | + +---------+ + + ECHO Complete (11/13/2017 8:21 AM PDT) + + | Specimen | + + | | + + + + + | Impressions | Performed At | + + + | 1. Overall left ventricular systolic function is normal with, an EF | | | between 55 - 60 %. 2. There is mild concentric left ventricular | | | hypertrophy. 3. The right ventricle is severely enlarged measuring | | | >4.1 cm. 4. The left atrium is markedly dilated. 5. The right atrium | | | is markedly enlarged. 6. There is mild aortic valve sclerosis | | | without stenosis. 7. There is maeu-xc-ywajstsv aortic regurgitation. | | | 8. Moderate mitral regurgitation is present. 9. There is mild to | | | moderate pulmonary hypertension. 10. The right ventricular systolic | | | pressure (pulmonary artery systolic pressure), as measured by Doppler, | | | is 50.90mmHg. 11. 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 12. | | | Compared with the findings of the prior study 04/2017, there has been | | | no clinically significant change. | | + + + + + + | Narrative | Performed At | + + + | Patient Name: RUDY MARTI Date of : 1930 | | | Performing Physician: Flaco Murrell MD | | | | | | INDICATIONS Shortness of breath CONCLUSIONS | | | 1. Overall left ventricular systolic function is normal | | | with, an EF between 55 - 60 %. 2. There is mild concentric left | | | ventricular hypertrophy. 3. The right ventricle is severely enlarged | | | measuring >4.1 cm. 4. The left atrium is markedly dilated. 5. The | | | right atrium is markedly enlarged. 6. There is mild aortic valve | | | sclerosis without stenosis. 7. There is pjdt-jl-abggdzxw aortic | | | regurgitation. 8. Moderate mitral regurgitation is present. 9. There | | | is mild to moderate pulmonary hypertension. 10. The right | | | ventricular systolic pressure (pulmonary artery systolic pressure), as | | | measured by Doppler, is 50.90mmHg. 11. The aortic root is dilated | | | measuring 4.1 cm. 12. Compared with the findings of the prior study | | | 04/2017, there has been no clinically significant change. FINDINGS | | | -------- ECG rhythm: Atrial fibrillation. Study: A 2-dimensional | | | transthoracic echocardiogram with m-mode, spectral and color flow | | | Doppler was perfomed. Left Ventricle: Overall left ventricular | | | systolic function is normal with, an EF between 55 - 60 %. Left | | | Ventricle: The left ventricle cavity size is normal. Left Ventricle: | | | There is mild concentric left ventricular hypertrophy. Left | | | Ventricle: Cannot assess diastolic function due to tachycardia. Right | | | Ventricle: The right ventricle is severely enlarged measuring >4.1 | | | cm. Left Atrium: The left atrium is markedly dilated. Right Atrium: | | | The right atrium is markedly enlarged. Aortic Valve: Aortic valve is | | | trileaflet and is minimally thickened. Aortic Valve: The aortic valve | | | is trileaflet. Aortic Valve: There is mild aortic valve sclerosis | | | without stenosis. Aortic Valve: There is dokv-ul-aaqvapsv aortic | | | regurgitation. Aortic Valve: There is no evidence of aortic stenosis. | | | Mitral Valve: The mitral valve is normal. Mitral Valve: Moderate | | | mitral regurgitation is present. Mitral Valve: Mild mitral annular | | | calcification present. Tricuspid Valve: The tricuspid valve appears | | | structurally normal. Tricuspid Valve: Moderate tricuspid | | | regurgitation present. Tricuspid Valve: There is mild to moderate | | | pulmonary hypertension. Tricuspid Valve: The right ventricular | | | systolic pressure (pulmonary artery systolic pressure), as measured by | | | Doppler, is 50.90mmHg. Pulmonic Valve: The pulmonic valve is normal. | | | Pulmonic Valve: Trace pulmonic regurgitation. Pericardium: There | | | is no pericardial effusion. IVC/Hepatic Veins: The inferior vena cava | | | is normal in size and collapses > 50 % with sniff, indicating normal | | | central venous pressures. Aorta: The aortic root is dilated measuring | | | 4.1 cm. General comments: Compared with the findings of the prior | | | study 04/2017, there has been no clinically significant change. | | | MEASUREMENTS RA Area: 34.17 cm2 Ao asc: 3.59 cm | | | Ao sinus: 4.[address] junct: 3.38 cm IVC: 2.48 cm LA | | | Diam: 5.98 cm EDV(Teich): 113.29 ml IVSd: 1.20 cm LVIDd: | | | 4.90 cm LVPWd: 1.29 cm LVOT Diam: 2.29 cm %FS: 29.84 % | | | EF(Teich): 56.81 % ESV(Teich): 48.93 ml IVSs: 1.57 cm | | | LVIDs: 3.44 cm LVPWs: 1.94 cm SV(Teich): 64.36 ml RVIDd: | | | 3.99 cm LAESV(A-L): 201.15 ml LAESV Index (A-L): 106.43 | | | ml/m2 LAAs A2C: 41.41 cm2 LAESV A-L A2C: 191.03 ml LALs A2C: | | | 7.62 cm LAAs A4C: 43.61 cm2 LAESV A-L A4C: 202.64 ml LALs | | | A4C: 7.96 cm AR Dec Lares: 2.62 m/s2 AR Dec Time: 1693.47 | | | ms AR maxP.94 mmHg AR PHT: 491.10 ms AR Vmax: 4.44 | | | m/s AV maxP.42 mmHg AV meanP.15 mmHg AV Vmax: 1.36 | | | m/s AV Vmean: 0.95 m/s AV VTI: 25.11 cm EFRAÍN Vmax: 2.85 | | | cm2 EFRAÍN (VTI): 2.88 cm2 AVAI Vmax: 0.00 cm2/m2 AVAI (VTI): | | | 0.00 cm2/m2 LVOT maxP.51 mmHg LVOT meanP.76 mmHg | | | LVSI Dopp: 38.30 ml/m2 LVSV Dopp: 72.39 ml LVOT Vmax: 0.93 | | | m/s LVOT Vmean: 0.60 m/s LVOT VTI: 17.44 cm MV E Kehinde: 0.94 | | | m/s Septal e': 0.06 m/s Septal E/e': 13.63 Lateral e': | | | 0.15 m/s Lateral E/e': 5.91 HR: 85.44 BPM PV maxP.48 | | | mmHg PV meanP.48 mmHg PV Vmax: 0.78 m/s PV Vmean: 0.58 | | | m/s PV VTI: 12.75 cm PV maxP.45 mmHg PV Vmax: 1.16 | | | m/s RAP: 3 mmHg RVSP: 50.90 mmHg TR maxP.90 mmHg TR | | | Vmax: 3.46 m/s [employer] Representative: Authenticated by: Flaco Murrell | | | MD Report Date/Time: 11-15-2017 11:53:11 | | + + + + + | Procedure Note | + + | Armando Rdz Conversion - 02/17/2019 5:56 AM PDT Patient Name: Carlos MARTI of | | : 1930 Performing Physician: Flaco Murrell | | MD INDICATIONS S | | hortness of breath CONCLUSIONS 1. Overall left ventricular systolic function | | is normal with, an EF between 55 - 60 %.2. There is mild concentric left ventricular | | hypertrophy.3. The right ventricle is severely enlarged measuring >4.1 cm.4. The left | | atrium is markedly dilated.5. The right atrium is markedly enlarged.6. There is mild | | aortic valve sclerosis without stenosis.7. There is dcba-ia-tsnsqrig aortic | | regurgitation.8. Moderate mitral regurgitation is present.9. There is mild to moderate | | pulmonary hypertension.10. The right ventricular systolic pressure (pulmonary artery | | systolic pressure), as measured by Doppler, is 50.90mmHg.11. The aortic root is dilated | | measuring 4.1 cm.12. Compared with the findings of the prior study 04/2017, there has | | been no clinically significant change. FINDINGS--------ECG rhythm: Atrial | | fibrillation.Study: A 2-dimensional transthoracic echocardiogram with m-mode, spectral | | and color flow Doppler was perfomed.Left Ventricle: Overall left ventricular systolic | | function is normal with, an EF between 55 - 60 %.Left Ventricle: The left ventricle | | cavity size is normal.Left Ventricle: There is mild concentric left ventricular | | hypertrophy.Left Ventricle: Cannot assess diastolic function due to tachycardia.Right | | Ventricle: The right ventricle is severely enlarged measuring >4.1 cm.Left Atrium: The | | left atrium is markedly dilated.Right Atrium: The right atrium is markedly | | enlarged.Aortic Valve: Aortic valve is trileaflet and is minimally thickened.Aortic | | Valve: The aortic valve is trileaflet.Aortic Valve: There is mild aortic valve sclerosis | | without stenosis.Aortic Valve: There is ajxs-zk-crghjmrw aortic regurgitation.Aortic | | Valve: There is no evidence of aortic stenosis.Mitral Valve: The mitral valve is | | normal.Mitral Valve: Moderate mitral regurgitation is present.Mitral Valve: Mild mitral | | annular calcification present.Tricuspid Valve: The tricuspid valve appears structurally | | normal.Tricuspid Valve: Moderate tricuspid regurgitation present.Tricuspid Valve: There | | is mild to moderate pulmonary hypertension.Tricuspid Valve: The right ventricular | | systolic pressure (pulmonary artery systolic pressure), as measured by Doppler, is | | 50.90mmHg.Pulmonic Valve: The pulmonic valve is normal.Pulmonic Valve: Trace pulmonic | | regurgitation.Pericardium: There is no pericardial effusion.IVC/Hepatic Veins: The | | inferior vena cava is normal in size and collapses > 50 % with sniff, indicating normal | | central venous pressures.Aorta: 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 MEASUREMENTS RA Area: 34.17 cm2Ao asc: | | 3.59 cmAo sinus: 4.[address] junct: 3.38 cmIVC: 2.48 cmLA Diam: 5.98 | | cmEDV(Teich): 113.29 mlIVSd: 1.20 cmLVIDd: 4.90 cmLVPWd: 1.29 cmLVOT Diam: | | 2.29 cm%FS: 29.84 %EF(Teich): 56.81 %ESV(Teich): 48.93 mlIVSs: 1.57 cmLVIDs: | | 3.44 cmLVPWs: 1.94 cmSV(Teich): 64.36 mlRVIDd: 3.99 cmLAESV(A-L): 201.15 mlLAESV | | Index (A-L): 106.43 ml/m2LAAs A2C: 41.41 [id number] A-L A2C: 191.03 mlLALs A2C: | | 7.62 cmLAAs A4C: 43.61 [id number] A-L A4C: 202.64 mlLALs A4C: 7.96 cmAR Dec Lares: | | 2.62 m/s2AR Dec Time: 1693.47 msAR maxP.94 mmHgAR PHT: 491.10 msAR Vmax: | | 4.44 m/Roxy maxP.42 mmHgAV meanP.15 mmHgAV Vmax: 1.36 m/Roxy Vmean: 0.95 | | m/Roxy VTI: 25.11 cmAVA Vmax: 2.85 cm2AVA (VTI): 2.88 [id number] Vmax: 0.00 | | cm2/m2AVAI (VTI): 0.00 cm2/m2LVOT maxP.51 mmHgLVOT meanP.76 mmHgLVSI Dopp: | | 38.30 ml/m2LVSV Dopp: 72.39 mlLVOT Vmax: 0.93 m/sLVOT Vmean: 0.60 m/sLVOT VTI: | | 17.44 cmMV E Kehinde: 0.94 m/sSeptal e': 0.06 m/sSeptal E/e': 13.63Lateral e': | | 0.15 m/sLateral E/e': 5.91HR: 85.44 BPMPV maxP.48 mmHgPV meanP.48 mmHgPV | | Vmax: 0.78 m/sPV Vmean: 0.58 m/sPV VTI: 12.75 cmPV maxP.45 mmHgPV Vmax: | | 1.16 m/sRAP: 3 mmHgRVSP: 50.90 mmHgTR maxP.90 mmHgTR Vmax: 3.46 m/s | | [employer] Representative: JRAuthenticated by: Flaco YBARRAepradha Date/Time: 11-15-2017 11:53:11 | | IMPRESSION: 1. Overall left ventricular systolic function is normal with, an EF between | | 55 - 60 %.2. There is mild concentric left ventricular hypertrophy.3. The right | | ventricle is severely enlarged measuring >4.1 cm.4. The left atrium is markedly | | dilated.5. The right atrium is markedly enlarged.6. There is mild aortic valve sclerosis | | without stenosis.7. There is djjg-wv-lllqjstx aortic regurgitation.8. Moderate mitral | | regurgitation is present.9. There is mild to moderate pulmonary hypertension.10. The | | right ventricular systolic pressure (pulmonary artery systolic pressure), as measured by | | Doppler, is 50.90mmHg.11. 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 Compared with | | the findings of the prior study 04/2017, there has been no clinically significant | | change. | |Ao sinus: 4.13 cm | |Ao st junct: 3.38 cm | |IVC: 2.48 cm | |LA Diam: 5.98 cm | |EDV(Teich): 113.29 ml | |IVSd: 1.20 cm | |LVIDd: 4.90 cm | |LVPWd: 1.29 cm | |LVOT Diam: 2.29 cm | |%FS: 29.84 % | |EF(Teich): 56.81 % | |ESV(Teich): 48.93 ml | |IVSs: 1.57 cm | |LVIDs: 3.44 cm | |LVPWs: 1.94 cm | |SV(Teich): 64.36 ml | |RVIDd: 3.99 cm | |LAESV(A-L): 201.15 ml | |LAESV Index (A-L): 106.43 ml/m2 | |LAAs A2C: 41.41 cm2 | |LAESV A-L A2C: 191.03 ml | |LALs A2C: 7.62 cm | |LAAs A4C: 43.61 cm2 | |LAESV A-L A4C: 202.64 ml | |LALs A4C: 7.96 cm | |AR Dec Lares: 2.62 m/s2 | |AR Dec Time: 1693.47 ms | |AR maxP.94 mmHg | |AR PHT: 491.10 ms | |AR Vmax: 4.44 m/s | |AV maxP.42 mmHg | |AV meanP.15 mmHg | |AV Vmax: 1.36 m/s | |AV Vmean: 0.95 m/s | |AV VTI: 25.11 cm | |EFRAÍN Vmax: 2.85 cm2 | |EFRAÍN (VTI): 2.88 cm2 | |AVAI Vmax: 0.00 cm2/m2 | |AVAI (VTI): 0.00 cm2/m2 | |LVOT maxP.51 mmHg | |LVOT meanP.76 mmHg | |LVSI Dopp: 38.30 ml/m2 | |LVSV Dopp: 72.39 ml | |LVOT Vmax: 0.93 m/s | |LVOT Vmean: 0.60 m/s | |LVOT VTI: 17.44 cm | |MV E Kehinde: 0.94 m/s | |Septal e': 0.06 m/s | |Septal E/e': 13.63 | |Lateral e': 0.15 m/s | |Lateral E/e': 5.91 | |HR: 85.44 BPM | |PV maxP.48 mmHg | |PV meanP.48 mmHg | |PV Vmax: 0.78 m/s | |PV Vmean: 0.58 m/s | |PV VTI: 12.75 cm | |PV maxP.45 mmHg | |PV Vmax: 1.16 m/s | |RAP: 3 mmHg | |RVSP: 50.90 mmHg | |TR maxP.90 mmHg | |TR Vmax: 3.46 m/s | | | |[employer] Representative: JR | |Authenticated by: Flaco Murrell MD | |Report Date/Time: 11-15-2017 11:53:11 | | | |IMPRESSION: | |1. Overall left ventricular systolic function is normal with, an EF between 55 - 60 %. | |2. There is mild concentric left ventricular hypertrophy. | |3. The right ventricle is severely enlarged measuring >4.1 cm. | |4. The left atrium is markedly dilated. | |5. The right atrium is markedly enlarged. | |6. There is mild aortic valve sclerosis without stenosis. | |7. There is uqfa-ck-wvrigsbl aortic regurgitation. | |8. Moderate mitral regurgitation is present. | |9. There is mild to moderate pulmonary hypertension. | |10. The right ventricular systolic pressure (pulmonary artery systolic pressure), as measur ed by Doppler, is 50.90mmHg. | |11. 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 | |12. Compared with the findings of the prior study 04/2017, there has been no clinically sig nificant change. | + + Protime INR (11/13/2017 5:17 AM PDT) + + + + + + | Component | Value | Ref Range | Performed | Pathologist | | | | | At | Signature | + + + + + + | INR | 8.4 ()Comment: | | EXTERNAL | | | | REFERENCE RANGE:0.9 - | | LAB | | | | 1.2 | | | | | | NON-ANTICOAGULATED2.0 | | | | | | - 3.0 ALL OTHER | | | | | | THERAPEUTIC | | | | | | INDICATIONS2.5 - 3.5 | | | | | | MECHANICAL HEART VALVES, | | | | | | RECURRENT OR SYSTEMIC | | | | | | EMBOLISMCALLED NURSING | | | | | | [place] AT [address]32 | | | | | | BY Inst[employer] BACK RESULTS | | | | | | VERIFIEDTesting | | | | | | performed at [facility];[address] | | | [address] | [address];[place], [place] | | | | | | [address] | | | | + + + + + + + + | Specimen | + + | Blood specimen | | (specimen) | + + + +---------+ + + | Performing | Address | City/State/Zipcode | Phone Number | | Organization | | | | + +---------+ + + | EXTERNAL LAB | | | | + +---------+ + + External Lab: LEONIDES (11/13/2017 5:17 AM PDT) + + +---- + + + | Component | Value | Ref Range | Performed | Pathologist | | | | | At | Signature | + + +---- + + + | WBC | 9.11 | 3.8 0 - 11.00 | EXTERNAL | | | | | K/u L | LAB | | + + +---- + + + | Non- | 4.96 | 4.2 0 - 5.70 | EXTERNAL | | | Red Blood | | M/u L | LAB | | | Cells | | | | | | Counted | | | | | + + +---- + + + | Hemoglobin | 10.4 (L) | 13. 2 - 17.0 | EXTERNAL | | | | | g/d L | LAB | | + + +---- + + + | Hematocrit, | 34.2 (L) | 39. 0 - 50.0 % | EXTERNAL | | | POC | | | LAB | | + + +---- + + + | MCV | 69.1 (L) | 80. 0 - 100.0 fl | EXTERNAL | | | | | | LAB | | + + +---- + + + | MCH | 20.9 (L) | 27. 0 - 34.0 pg | EXTERNAL | | | | | | LAB | | + + +---- + + + | MCHC | 30.3 (L) | 32. 0 - 35.5 | EXTERNAL | | | | | g/d L | LAB | | + + +---- + + + | RDW-CV | 47.3 | 37 - 53 fl | EXTERNAL | | | | | | LAB | | + + +---- + + + | Platelet | 295 | 150 - 400 K/uL | EXTERNAL | | | Count | | | LAB | | | Plasma | | | | | + + +---- + + + | MPV | 7.6 | fl | EXTERNAL | | | | | | LAB | | + + +---- + + + | Differentia | AUTOMATED | | EXTERNAL | | | l Type | | | LAB | | + + +---- + + + | % Segmented | 77.00 | % | EXTERNAL | | | | | | LAB | | | Neutrophils | | | | | + + +---- + + + | % | 10.21 | % | EXTERNAL | | | Lymphocytes | | | LAB | | + + +---- + + + | % Monocytes | 11.18 | % | EXTERNAL | | | | | | LAB | | + + +---- + + + | % | 1.37 | % | EXTERNAL | | | Eosinophils | | | LAB | | + + +---- + + + | % Basophils | 0.24 | % | EXTERNAL | | | | | | LAB | | + + +---- + + + | Absolute | 7.01 | 1.9 0 - 7.40 | EXTERNAL | | | Segmented | | K/u L | LAB | | | Neutrophils | | | | | + + +---- + + + | Absolute | 0.93 (L) | 1.0 0 - 3.90 | EXTERNAL | | | Lymphocytes | | K/u L | LAB | | + + +---- + + + | Absolute | 1.02 (H) | 0.0 0 - 0.80 | EXTERNAL | | | Monocytes | | K/u L | LAB | | + + +---- + + + | Absolute | 0.12 | 0.0 0 - 0.50 | EXTERNAL | | | Eosinophils | | K/u L | LAB | | + + +---- + + + | Absolute | 0.02 | 0.0 0 - 0.10 | EXTERNAL | | | Basophils | | K/u L | LAB | | + + +---- + + + | RBC | 1+Comment: | | EXTERNAL | | | Morphology | ANISO2+HYPO2+MICRO1+OVAL | | LAB | | | | ONORMAL PLT MORPHTesting | | | | | | performed at [facility], [address] | [address], | | | | | | [place] [address] | | | | | |MICRO | | | | | |1+ | | | | | |OVALO | | | | | |NORMAL PLT MORPH | | | | | |Testing performed at [facility], [address], [place] [address] | | | | | | | | | | + + +---- + + + + + | Specimen | + + | Blood specimen | | (specimen) | + + + +---------+ + + | Performing | Address | City/State/Zipcode | Phone Number | | Organization | | | | + +---------+ + + | EXTERNAL LAB | | | | + +---------+ + + Phosphorus (11/13/2017 5:17 AM PDT) + + + + + + | Component | Value | Ref Range | Performed | Pathologist | | | | | At | Signature | + + + + + + | PHOSPHORUS | 3.6Comment: Testing | 2.3 - 4.8 mg/dL | EXTERNAL | | | | performed at [facility], [address] | | LAB | | | | [address], | | | | | | [place] [address] | | | | + + + + + + + + | Specimen | + + | Blood specimen | | (specimen) | + + + +---------+ + + | Performing | Address | City/State/Zipcode | Phone Number | | Organization | | | | + +---------+ + + | EXTERNAL LAB | | | | + +---------+ + + Magnesium (11/13/2017 5:17 AM PDT) + + + + + + | Component | Value | Ref Range | Performed | Pathologist | | | | | At | Signature | + + + + + + | Magnesium | 2.0Comment: Testing | 1.7 - 2.4 mg/dL | EXTERNAL | | | | performed at [facility], [address] | | LAB | | | | [address], | | | | | | [place] [address] | | | | + + + + + + + + | Specimen | + + | Blood specimen | | (specimen) | + + + +---------+ + + | Performing | Address | City/State/Zipcode | Phone Number | | Organization | | | | + +---------+ + + | EXTERNAL LAB | | | | + +---------+ + + Basic Metabolic Panel (11/13/2017 5:17 AM PDT) + + + + + + | Component | Value | Ref Range | Performed | Pathologist | | | | | At | Signature | + + + + + + | Na | 134 (L) | 135 - 145 | EXTERNAL | | | | | mmol/L | LAB | | + + + + + + | K | 4.2 | 3.5 - 4.9 | EXTERNAL | | | | | mmol/L | LAB | | + + + + + + | Cl | 91 (L) | 99 - 109 mmol/L | EXTERNAL | | | | | | LAB | | + + + + + + | CO2 | 39 (H) | 23 - 32 mmol/L | EXTERNAL | | | | | | LAB | | + + + + + + | Anion Gap | 8 | 5 - 20 mmol/L | EXTERNAL | | | | | | LAB | | + + + + + + | Glucose, | 148 (H) | 65 - 99 mg/dL | EXTERNAL | | | Fasting | | | LAB | | + + + + + + | BUN | 19 | 8 - 25 mg/dL | EXTERNAL | | | | | | LAB | | + + + + + + | Creatinine | 1.2 | 0.70 - 1.30 | EXTERNAL | | | | | mg/dL | LAB | | + + + + + + | BUN/Creatin | 16 | | EXTERNAL | | | ine Ratio | | | LAB | | + + + + + + | Calcium | 8.9 | 8.5 - 10.5 | EXTERNAL | | | | | mg/dL | LAB | | + + + + + + | Estimated | >60Comment: GFR <60: | mL/min/1.73m2 | EXTERNAL | | | GFR | CHRONIC KIDNEY DISEASE, | | LAB | | | | IF FOUND OVER A 3 MONTH | | | | | | PERIOD.GFR <15: KIDNEY | | | | | | FAILURE.FOR | | | | | | AMERICANS, MULTIPLY THE | | | | | | CALCULATED GFR BY | | | | | | 1.210.Testing performed | | | | | | at [facility], [address] | | | | | [address], | | | | | | [place] [address] | | | | + + + + + + + + | Specimen | + + | Blood specimen | | (specimen) | + + + +---------+ + + | Performing | Address | City/State/Zipcode | Phone Number | | Organization | | | | + +---------+ + + | EXTERNAL LAB | | | | + +---------+ + + Procalcitonin (11/12/2017 2:15 AM PDT) + + + + + + | Component | Value | Ref Range | Performed | Pathologist | | | | | At | Signature | + + + + + + | PROCALCITON | <0.05Comment: | ng/mL | EXTERNAL | | | IN | INTERPRETIVE | | LAB | | | | INFORMATION: | | | | | | PROCALCITONIN PCT <= | | | | | | 0.5 ng/mL: Low risk | | | | | | for progression to | | | | | | severe systemic | | | | | | bacterial infection | | | | | | (severe sepsis/septic | | | | | | shock). Does not | | | | | | exclude an infection, | | | | | | because localized | | | | | | infections may be | | | | | | associated with such low | | | | | | levels. If PCT is | | | | | | measured very early | | | | | | after bacterial | | | | | | challenge (usually <6 | | | | | | hours), results may | | | | | | still be low and | | | | | | should re-assess PCT | | | | | | 6-24 hours later. PCT | | | | | | >0.5 and <= 2 ng/mL: | | | | | | Moderate risk for | | | | | | progression to severe | | | | | | systemic infection | | | | | | (severe sepsis/septic | | | | | | shock). Other | | | | | | conditions are known | | | | | | to elevate PCT, patient | | | | | | should be closely | | | | | | monitored both | | | | | | clinically and by | | | | | | re-assessing PCT | | | | | | within 6-24 hours. PCT > | | | | | | 2 ng/mL: High | | | | | | likelihood for | | | | | | progression to severe | | | | | | systemic bacterial | | | | | | infection (severe | | | | | | sepsis/septic shock). | | | | | | PCT >= 10 ng/mL: | | | | | | High likelihood of | | | | | | severe sepsis or septic | | | | | | shock.Testing performed | | | | | | at [facility];[address] [place] [address] | | | | | | [facility];[place] [address] | | | | + + + + + + + + | Specimen | + + | | + + + +---------+ + + | Performing | Address | City/State/Zipcode | Phone Number | | Organization | | | | + +---------+ + + | EXTERNAL LAB | | | | + +---------+ + + External Lab: CBC (11/12/2017 2:15 AM PDT) + + +---- + + + | Component | Value | Ref Range | Performed | Pathologist | | | | | At | Signature | + + +---- + + + | WBC | 10.62 | 3.8 0 - 11.00 | EXTERNAL | | | | | K/u L | LAB | | + + +---- + + + | Non- | 4.94 | 4.2 0 - 5.70 | EXTERNAL | | | Red Blood | | M/u L | LAB | | | Cells | | | | | | Counted | | | | | + + +---- + + + | Hemoglobin | 10.4 (L) | 13. 2 - 17.0 | EXTERNAL | | | | | g/d L | LAB | | + + +---- + + + | Hematocrit, | 33.9 (L) | 39. 0 - 50.0 % | EXTERNAL | | | POC | | | LAB | | + + +---- + + + | MCV | 68.7 (L) | 80. 0 - 100.0 fl | EXTERNAL | | | | | | LAB | | + + +---- + + + | MCH | 21.1 (L) | 27. 0 - 34.0 pg | EXTERNAL | | | | | | LAB | | + + +---- + + + | MCHC | 30.7 (L) | 32. 0 - 35.5 | EXTERNAL | | | | | g/d L | LAB | | + + +---- + + + | RDW-CV | 46.8 | 37 - 53 fl | EXTERNAL | | | | | | LAB | | + + +---- + + + | Platelet | 314 | 150 - 400 K/uL | EXTERNAL | | | Count | | | LAB | | | Plasma | | | | | + + +---- + + + | MPV | 7.9 | fl | EXTERNAL | | | | | | LAB | | + + +---- + + + | Differentia | AUTOMATED | | EXTERNAL | | | l Type | | | LAB | | + + +---- + + + | % Segmented | 77.47 | % | EXTERNAL | | | | | | LAB | | | Neutrophils | | | | | + + +---- + + + | % | 10.10 | % | EXTERNAL | | | Lymphocytes | | | LAB | | + + +---- + + + | % Monocytes | 11.07 | % | EXTERNAL | | | | | | LAB | | + + +---- + + + | % | 1.03 | % | EXTERNAL | | | Eosinophils | | | LAB | | + + +---- + + + | % Basophils | 0.33 | % | EXTERNAL | | | | | | LAB | | + + +---- + + + | Absolute | 8.23 (H) | 1.9 0 - 7.40 | EXTERNAL | | | Segmented | | K/u L | LAB | | | Neutrophils | | | | | + + +---- + + + | Absolute | 1.07 | 1.0 0 - 3.90 | EXTERNAL | | | Lymphocytes | | K/u L | LAB | | + + +---- + + + | Absolute | 1.18 (H) | 0.0 0 - 0.80 | EXTERNAL | | | Monocytes | | K/u L | LAB | | + + +---- + + + | Absolute | 0.11 | 0.0 0 - 0.50 | EXTERNAL | | | Eosinophils | | K/u L | LAB | | + + +---- + + + | Absolute | 0.04 | 0.0 0 - 0.10 | EXTERNAL | | | Basophils | | K/u L | LAB | | + + +---- + + + | RBC | 3+Comment: | | EXTERNAL | | | Morphology | MICRO2+HYPOTesting | | LAB | | | | performed at [facility], [address] | | | | | [address], | | | | | | [place] [address] | | | | | |Testing performed at [facility], [address] [place] [address] | | | | | | | | | | + + +---- + + + + + | Specimen | + + | Blood specimen | | (specimen) | + + + +---------+ + + | Performing | Address | City/State/Zipcode | Phone Number | | Organization | | | | + +---------+ + + | EXTERNAL LAB | | | | + +---------+ + + Phosphorus (11/12/2017 2:15 AM PDT) + + + + + + | Component | Value | Ref Range | Performed | Pathologist | | | | | At | Signature | + + + + + + | PHOSPHORUS | 3.0Comment: Testing | 2.3 - 4.8 mg/dL | EXTERNAL | | | | performed at [facility], [address] | | LAB | | | | [address], | | | | | | [place] [address] | | | | + + + + + + + + | Specimen | + + | Blood specimen | | (specimen) | + + + +---------+ + + | Performing | Address | City/State/Zipcode | Phone Number | | Organization | | | | + +---------+ + + | EXTERNAL LAB | | | | + +---------+ + + Magnesium (11/12/2017 2:15 AM PDT) + + + + + + | Component | Value | Ref Range | Performed | Pathologist | | | | | At | Signature | + + + + + + | Magnesium | 2.0Comment: Testing | 1.7 - 2.4 mg/dL | EXTERNAL | | | | performed at [facility], [address] | | LAB | | | | [address], | | | | | | [place] [address] | | | | + + + + + + + + | Specimen | + + | Blood specimen | | (specimen) | + + + +---------+ + + | Performing | Address | City/State/Zipcode | Phone Number | | Organization | | | | + +---------+ + + | EXTERNAL LAB | | | | + +---------+ + + Basic Metabolic Panel (11/12/2017 2:15 AM PDT) + + + + + + | Component | Value | Ref Range | Performed | Pathologist | | | | | At | Signature | + + + + + + | Na | 137 | 135 - 145 | EXTERNAL | | | | | mmol/L | LAB | | + + + + + + | K | 4.1 | 3.5 - 4.9 | EXTERNAL | | | | | mmol/L | LAB | | + + + + + + | Cl | 95 (L) | 99 - 109 mmol/L | EXTERNAL | | | | | | LAB | | + + + + + + | CO2 | 38 (H) | 23 - 32 mmol/L | EXTERNAL | | | | | | LAB | | + + + + + + | Anion Gap | 8 | 5 - 20 mmol/L | EXTERNAL | | | | | | LAB | | + + + + + + | Glucose, | 110 (H) | 65 - 99 mg/dL | EXTERNAL | | | Fasting | | | LAB | | + + + + + + | BUN | 16 | 8 - 25 mg/dL | EXTERNAL | | | | | | LAB | | + + + + + + | Creatinine | 0.9 | 0.70 - 1.30 | EXTERNAL | | | | | mg/dL | LAB | | + + + + + + | BUN/Creatin | 18 | | EXTERNAL | | | ine Ratio | | | LAB | | + + + + + + | Calcium | 9.5 | 8.5 - 10.5 | EXTERNAL | | | | | mg/dL | LAB | | + + + + + + | Estimated | >60Comment: GFR <60: | mL/min/1.73m2 | EXTERNAL | | | GFR | CHRONIC KIDNEY DISEASE, | | LAB | | | | IF FOUND OVER A 3 MONTH | | | | | | PERIOD.GFR <15: KIDNEY | | | | | | FAILURE.FOR | | | | | | AMERICANS, MULTIPLY THE | | | | | | CALCULATED GFR BY | | | | | | 1.210.Testing performed | | | | | | at [facility], [address] | | | | | [facility], | | | | | | [place] [address] | | | | + + + + + + + + | Specimen | + + | Blood specimen | | (specimen) | + + + +---------+ + + | Performing | Address | City/State/Zipcode | Phone Number | | Organization | | | | + +---------+ + + | EXTERNAL LAB | | | | + +---------+ + + ECG 12 lead (11/11/2017 10:06 PM PDT) + + + + + + | Component | Value | Ref Range | Performed | Pathologist | | | | | At | Signature | + + + + + + | DIAGNOSIS: | Atrial fibrillation with | | EXTERNAL | | | | rapid ventricular | | LAB | | | | responseAbnormal ECGWhen | | | | | | compared with ECG of | | | | | | 22-AUG-2016 14:07,ST no | | | | | | longer depressed in | | | | | | Inferior leadsST no | | | | | | longer depressed in | | | | | | Lateral leadsThis ECG | | | | | | contains Unconfirmed | | | | | | Interpretation | | | | | | Statements. See ED | | | | | | Record for Physician | | | | | | Interpretation. | | | | | | Confirmed by MUSE READ | | | | | | ONLY, -COMPUTER ([id number]), | | | | | | senior editor Basilio Alatorre | | | | | | Ced ([id number]) on 11/13/2017 | | | | | | 3:35:29 AM | | | | + + + + + + + + | Specimen | + + | | + + + + + | Narrative | Performed At | + + + | Historically converted procedure from [facility] | EXTERNAL LAB | + + + + +---------+ + + | Performing | Address | City/State/Zipcode | Phone Number | | Organization | | | | + +---------+ + + | EXTERNAL LAB | | | | + +---------+ + + CT Lumbar Spine wo Contrast (11/11/2017 9:51 PM PDT) + + | Specimen | + + | | + + + + + | Impressions | Performed At | + + + | 1. Mild compression deformity of T12 which is new from the prior | | | exam. 2. Chronic compression deformity of L1, not significantly | | | changed. 3. Multilevel degenerative changes as above with slight | | | progression from the prior exam. | | + + + + + + | Narrative | Performed At | + + + | RUDY MARTI 1930 87 years Male 11/11/2017 9:[address] LUMBAR | | | SPINE WO CONTRAST INDICATION: Back pain COMPARISON: X-ray | | | lumbar spine 11/14/[address] lumbar spine 10/23/2012 TECHNIQUE: CT | | | scan of the lumbar spine without contrast.1.5-mm thick helically | | | acquired axial images were performed of the lumbar spine in soft | | | tissue and bone algorithm. Coronal and sagittal reconstructions were | | | performed at 2 mm thick slices. Dose reduction techniques were | | | used including automated exposure control, iterative reconstruction | | | technique, and/or automated adjustable mAs based on patient size. | | | FINDINGS: Dextro levoscoliosis of the lumbar spine. There is 1 cm of | | | right lateral subluxation of L2 on L3. There is 5 mm anterior | | | subluxation of L4 and L5. There is a compression deformity of the T12 | | | vertebral body with approximately 25% loss of vertebral body height. | | | This is new from the prior exam. Mild to moderate chronic compression | | | deformity of the L1 vertebral body is not significantly changed. | | | There is partial fusion across the T12-L1 disc space. Severe disc | | | space narrowing demonstrated at L2-L3 on the left with adjacent | | | sclerosis and prominent left lateral disc osteophyte, slightly | | | progressed from the prior exam. Severe disc space narrowing and should | | | on the right at L4-L5. T12-L1: Broad-based posterior disc | | | osteophyte complex. Minimal narrowing of the thecal sac. There is mild | | | right neural foraminal narrowing. The left neural foramen is patent. | | | L1-L2: Broad-based disc osteophyte complex, eccentric to the left. | | | No significant spinal canal stenosis. Left subarticular stenosis. | | | Moderate narrowing of the left neural foramen. The right neural | | | foramen is patent. L2-L3: Broad-based disc osteophyte complex, | | | eccentric to the left. No cement spinal canal stenosis. There is mild | | | left neural foraminal stenosis. The right neural foramen is patent. | | | L3-L4: Circumferential disc bulge. No significant spinal canal | | | stenosis. Mild right neural foraminal stenosis. Left neural foramen is | | | patent. L4-L5: Circumferential disc bulge. No significant spinal | | | canal stenosis. Mild to moderate right neural foraminal stenosis. The | | | left neural foramen is patent. Moderate right facet arthropathy. | | | L5-S1: Mild circumferential disc bulge. No significant spinal canal or | | | neural foraminal stenosis. Abdominal aorta is noted to be | | | atherosclerotic, but without significant aneurysm. Chronic | | | diverticulosis noted. | | + + + + + | Procedure Note | + + | Kendell, Rad Conversion - 02/17/2019 5:56 AM PDT RUDY Elizondo [id number] years | | Male11/11/2017 9:51 PMCT LUMBAR SPINE WO CONTRAST INDICATION: Back pain COMPARISON: X-ray | | lumbar spine 11/14/[address] lumbar spine 10/23/2012 TECHNIQUE: CT scan of the lumbar | | spine without contrast.1.5-mm thick helically acquired axial images were performed of | | the lumbar spine in soft tissue and bone algorithm. Coronal and sagittal | | reconstructions were performed at 2 mm thick slices. Dose reduction techniques were | | used including automated exposure control, iterative reconstruction technique, and/or | | automated adjustable mAs based on patient size. FINDINGS: Dextro levoscoliosis of the | | lumbar spine. There is 1 cm of right lateral subluxation of L2 on L3. There is 5 mm | | anterior subluxation of L4 and L5. There is a compression deformity of the T12 vertebral | | body with approximately 25% loss of vertebral body height. This is new from the prior | | exam. Mild to moderate chronic compression deformity of the L1 vertebral body is not | | significantly changed. There is partial fusion across the T12-L1 disc space. Severe disc | | space narrowing demonstrated at L2-L3 on the left with adjacent sclerosis and prominent | | left lateral disc osteophyte, slightly progressed from the prior exam. Severe disc | | space narrowing and should on the right at L4-L5. T12-L1: Broad-based posterior disc | | osteophyte complex. Minimal narrowing of the thecal sac. There is mild right neural | | foraminal narrowing. The left neural foramen is patent. L1-L2: Broad-based disc | | osteophyte complex, eccentric to the left. No significant spinal canal stenosis. Left | | subarticular stenosis. Moderate narrowing of the left neural foramen. The right neural | | foramen is patent. L2-L3: Broad-based disc osteophyte complex, eccentric to the left. No | | cement spinal canal stenosis. There is mild left neural foraminal stenosis. The right | | neural foramen is patent. L3-L4: Circumferential disc bulge. No significant spinal canal | | stenosis. Mild right neural foraminal stenosis. Left neural foramen is patent. L4-L5: | | Circumferential disc bulge. No significant spinal canal stenosis. Mild to moderate right | | neural foraminal stenosis. The left neural foramen is patent. Moderate right facet | | arthropathy. L5-S1: Mild circumferential disc bulge. No significant spinal canal or | | neural foraminal stenosis. Abdominal aorta is noted to be atherosclerotic, but without | | significant aneurysm. Chronic diverticulosis noted. IMPRESSION: 1. Mild compression | | deformity of T12 which is new from the prior exam.2. Chronic compression deformity of | | L1, not significantly changed.3. Multilevel degenerative changes as above with slight | | progression from the prior exam. | | PM | |IMPRESSION: | |1. Mild compression deformity of T12 which is new from the prior exam. | |2. Chronic compression deformity of L1, not significantly changed. | |3. Multilevel degenerative changes as above with slight progression from the prior exam. | | | | | + + HISTORICAL LAB PANEL RESULT (11/11/2017 7:08 PM PDT) + + + + + -+ | Component | Value | Ref Range | Performed | Pathologist | | | | | At | Signature | + + + + + -+ | WBC | 8.78 | 3.80 - 11.00 | EXTERNAL | | | | | K/uL | LAB | | + + + + + -+ | Non- | 5.07 | 4.20 - 5.70 | EXTERNAL | | | Red Blood | | M/uL | LAB | | | Cells | | | | | | Counted | | | | | + + + + + -+ | Hemoglobin | 10.5 (L) | 13.2 - 17.0 | EXTERNAL | | | | | g/dL | LAB | | + + + + + -+ | Hematocrit, | 35.4 (L) | 39.0 - 50.0 % | EXTERNAL | | | POC | | | LAB | | + + + + + -+ | MCV | 69.8 (L) | 80.0 - 100.0 fl | EXTERNAL | | | | | | LAB | | + + + + + -+ | MCH | 20.6 (L) | 27.0 - 34.0 pg | EXTERNAL | | | | | | LAB | | + + + + + -+ | MCHC | 29.6 (L) | 32.0 - 35.5 | EXTERNAL | | | | | g/dL | LAB | | + + + + + -+ | RDW-CV | 47.3 | 37 - 53 fl | EXTERNAL | | | | | | LAB | | + + + + + -+ | Platelet | 315 | 150 - 400 K/uL | EXTERNAL | | | Count | | | LAB | | | Plasma | | | | | + + + + + -+ | MPV | 7.4 | fl | EXTERNAL | | | | | | LAB | | + + + + + -+ | Differentia | AUTOMATED | | EXTERNAL | | | l Type | | | LAB | | + + + + + -+ | % Segmented | 72.80 | % | EXTERNAL | | | | | | LAB | | | Neutrophils | | | | | + + + + + -+ | % | 12.62 | % | EXTERNAL | | | Lymphocytes | | | LAB | | + + + + + -+ | % Monocytes | 13.05 | % | EXTERNAL | | | | | | LAB | | + + + + + -+ | % | 1.25 | % | EXTERNAL | | | Eosinophils | | | LAB | | + + + + + -+ | % Basophils | 0.28 | % | EXTERNAL | | | | | | LAB | | + + + + + -+ | Absolute | 6.39 | 1.90 - 7.40 | EXTERNAL | | | Segmented | | K/uL | LAB | | | Neutrophils | | | | | + + + + + -+ | Absolute | 1.11 | 1.00 - 3.90 | EXTERNAL | | | Lymphocytes | | K/uL | LAB | | + + + + + -+ | Absolute | 1.15 (H) | 0.00 - 0.80 | EXTERNAL | | | Monocytes | | K/uL | LAB | | + + + + + -+ | Absolute | 0.11 | 0.00 - 0.50 | EXTERNAL | | | Eosinophils | | K/uL | LAB | | + + + + + -+ | Absolute | 0.03 | 0.00 - 0.10 | EXTERNAL | | | Basophils | | K/uL | LAB | | + + + + + -+ | RBC | 2+ | | EXTERNAL | | | Morphology | Comment: | | LAB | | | | ANISO | | | | | | 2+ | | | | | | HYPO | | | | | | 2+ | | | | | | MICRO | | | | | | NORMAL PLT MORPH | | | | | | | | | | + + + + + -+ | Platelet | ADEQUATE | | EXTERNAL | | | Estimate | | | LAB | | + + + + + -+ | Differentia | FEW SCHISTOCYTES SEEN | | EXTERNAL | | | l Comments | | | LAB | | + + + + + -+ | Na | 136 | 135 - 145 | EXTERNAL | | | | | mmol/L | LAB | | + + + + + -+ | K | 4.4 | 3.5 - 4.9 | EXTERNAL | | | | | mmol/L | LAB | | + + + + + -+ | Cl | 98 (L) | 99 - 109 mmol/L | EXTERNAL | | | | | | LAB | | + + + + + -+ | CO2 | 35 (H) | 23 - 32 mmol/L | EXTERNAL | | | | | | LAB | | + + + + + -+ | Anion Gap | 7 | 5 - 20 mmol/L | EXTERNAL | | | | | | LAB | | + + + + + -+ | Glucose, | 103 (H) | 65 - 99 mg/dL | EXTERNAL | | | Fasting | | | LAB | | + + + + + -+ | BUN | 16 | 8 - 25 mg/dL | EXTERNAL | | | | | | LAB | | + + + + + -+ | Creatinine | 0.77 | 0.70 - 1.30 | EXTERNAL | | | | | mg/dL | LAB | | + + + + + -+ | BUN/Creatin | 21 | | EXTERNAL | | | ine Ratio | | | LAB | | + + + + + -+ | Calcium | 9.1 | 8.5 - 10.5 | EXTERNAL | | | | | mg/dL | LAB | | + + + + + -+ | Protein, | 6.6 | 6.3 - 8.2 g/dL | EXTERNAL | | | Total | | | LAB | | + + + + + -+ | Albumin | 3.2 (L) | 3.3 - 4.8 g/dL | EXTERNAL | | | | | | LAB | | + + + + + -+ | Globulin | 3.4 | 1.3 - 4.9 g/dL | EXTERNAL | | | | | | LAB | | + + + + + -+ | A/G Ratio | 0.9 (L) | 1.0 - 2.4 | EXTERNAL | | | | | | LAB | | + + + + + -+ | Bilirubin | 0.6 | 0.1 - 1.5 mg/dL | EXTERNAL | | | Total | | | LAB | | + + + + + -+ | ALP, | 209 (H) | 35 - 115 U/L | EXTERNAL | | | External | | | LAB | | + + + + + -+ | AST | 27 | 10 - 45 U/L | EXTERNAL | | | | | | LAB | | + + + + + -+ | ALT | 27 | 10 - 65 U/L | EXTERNAL | | | | | | LAB | | + + + + + -+ | Estimated | >60Comment: GFR <60: | mL/min/1.73m2 | EXTERNAL | | | GFR | CHRONIC KIDNEY DISEASE, | | LAB | | | | IF FOUND OVER A 3 MONTH | | | | | | PERIOD.GFR <15: KIDNEY | | | | | | FAILURE.FOR | | | | | | AMERICANS, MULTIPLY THE | | | | | | CALCULATED GFR BY 1.210. | | | | | | | | | | + + + + + -+ | CK, Total | 73 | 55 - 400 U/L | EXTERNAL | | | | | | LAB | | + + + + + -+ | INR | 4.8Comment: REFERENCE | | [...] SYSTEMIC | | | | | | EMBOLISM | | | | + + + + + -+ | aPTT, | 44 (H) | 23 - 32 seconds | EXTERNAL | | | Patient | | | LAB | | + + + + + -+ | CK-MB | 2.9 | 0.5 - 3.6 ng/mL | EXTERNAL | | | | | | LAB | | + + + + + -+ | CK-MB Index | 4.0Comment: CK INDEX | | EXTERNAL | | | | INTERPRETATION: | | LAB | | | | MMB ng/mL | | | | | | | | | | | |CK INDEX INTERPRETATION: | | | | | | MMB ng/mL | | | | | | | | | | + + + + + -+ + + | Specimen | + + | | + + + +---------+ + + | Performing | Address | City/State/Zipcode | Phone Number | | Organization | | | | + +---------+ + + | EXTERNAL LAB | | | | + +---------+ + + Troponin I (11/11/2017 7:08 PM PDT) + + + + + + | Component | Value | Ref Range | Performed | Pathologist | | | | | At | Signature | + + + + + + | Troponin I, | 0.033Comment: 0.00 to | 0.00 - 0.10 | EXTERNAL | | | Qual | 0.10 CONSISTENT WITH | ng/mL | LAB | | | | NORMAL POPULATION0.11 to | | | | | | 0.60 CONSISTENT WITH | | | | | | INCREASED RISK FOR | | | | | | ADVERSE OUTCOMES> 0.60 | | | | | | CONSISTENT | | | | | | WITH WHO CRITERIA FOR | | | | | | ACUTE NV Testing | | | | | | performed at [facility];[address] | | | | | | [facility];[place], [place] | | | | | | [address] | | | | + + + + + + + + | Specimen | + + | Blood specimen | | (specimen) | + + + +---------+ + + | Performing | Address | City/State/Zipcode | Phone Number | | Organization | | | | + +---------+ + + | EXTERNAL LAB | | | | + +---------+ + + B Type Natriuretic Peptide (11/11/2017 7:08 PM PDT) + + + + + + | Component | Value | Ref Range | Performed | Pathologist | | | | | At | Signature | + + + + + + | BNP | 194 (H)Comment: Testing | 0 - 100 pg/mL | EXTERNAL | | | | performed at [facility];[address] | | LAB | | | | [address];[place] | | | | | | [address] | | | | + + + + + + + + | Specimen | + + | Blood specimen | | (specimen) | + + + +---------+ + + | Performing | Address | City/State/Zipcode | Phone Number | | Organization | | | | + +---------+ + + | EXTERNAL LAB | | | | + +---------+ + + XR Chest 2 Vws (11/11/2017 7:01 PM PDT) + + | Specimen | + + | | + + + + + | Impressions | Performed At | + + + | Pulmonary findings suggesting mild fluid overload. [facility] | | | Electronically signed by Navdeep Cantor MD on Nov 11 2017 7:37PM | | | Referring Provider Line: [phone] ID: [id number] | | + + + + + + | Narrative | Performed At | + + + | EXAM: CHEST RADIOGRAPHY EXAM DATE: 11/11/2017 07:02 PM. | | | CLINICAL HISTORY: SOB. COMPARISON: 07/29/2017 chest x-ray. | | | TECHNIQUE: 2 views. FINDINGS: Lungs/Pleura: Low lung volumes. | | | There is pulmonary vascular congestion noting obscured vascular | | | markings. No lobar consolidation. No pleural effusion or pneumothorax. | | | Mediastinum: Heart and mediastinal contours are unremarkable. | | | Other: None. | | + + + + + | Procedure Note | + + | Armando Rdz Conversion - 02/17/2019 5:56 AM PDT EXAM:CHEST RADIOGRAPHY EXAM DATE: | | 11/11/2017 07:02 PM. CLINICAL HISTORY: SOB. COMPARISON: 07/29/2017 chest x-ray. TECHNIQUE: | | 2 views. FINDINGS:Lungs/Pleura: Low lung volumes. There is pulmonary vascular | | congestion noting obscured vascular markings. No lobar consolidation. No pleural | | effusion or pneumothorax. Mediastinum: Heart and mediastinal contours are unremarkable. | | Other: None. IMPRESSION: Pulmonary findings suggesting mild fluid overload. [facility] | | Electronically signed by Navdeep Cantor MD on Nov 11 2017 7:37PM Referring Provider | | Line: [phone] ID: [id number] | | | |TECHNIQUE: 2 views. | | | |FINDINGS: | |Lungs/Pleura: Low lung volumes. There is pulmonary vascular congestion noting obscured vasc ular markings. No lobar consolidation. No pleural effusion or pneumothorax. | | | |Mediastinum: Heart and mediastinal contours are unremarkable. | | | |Other: None. | | | |IMPRESSION: | |Pulmonary findings suggesting mild fluid overload. | | | |[facility] | | | | Electronically signed by Navdeep Cantor MD on Nov 11 2017 7:37PM Referring Provider Li ne: [phone] ID: [id number] | + + documented in this encounter Visit Diagnoses + + | Diagnosis | + + | COPD with acute exacerbation (HCC) Obstructive chronic bronchitis with exacerbation | + + | Acute pulmonary edema (HCC) Acute edema of lung, unspecified | + + | T12 compression fracture (HCC) Closed fracture of dorsal (thoracic) vertebra without | | mention of spinal cord injury | + + | Acute on chronic congestive heart failure, unspecified heart failure type (HCC) | + + | Multiple falls Personal history of fall | + + | Intractable low back pain Lumbago | + + | Shortness of breath | + + | Atrial fibrillation with RVR (HCC) Atrial fibrillation | + + documented in this encounter
--- OUTSIDE RECORDS SUMMARY | ~2020-02-22 | XMS | Encounter Summary ---
Demographics + + + | Address | [address] | | | [place] [address] | + + + | Home Phone | | + + + | Preferred Language | Unknown | + + + | Marital Status | | + + + | Mandaeism Affiliation | 1077 | + + + | Race | White | + + + | Ethnic Group | Not or | + + + Author + + + | Author | [facility] | | | and [place] | + + + | Organization | [facility] | | | [...] ECON | Unknown | | | in [facility]) | | | | + + +---------+ + Care Team Providers + +------+ + | Care Senior Ui Ux Designer Name | Role | Phone | + +------+ + PCP | Unavailable | + +------+ + Encounter Details +--------+ + + + + | Date | Type | Department | Care Team | Description | +--------+ + + + + | 12/25/ | Hospital | [facility] | Conversion | Pain | | 2014 | Encounter | [address] | Transaction, | | | | | [address] | Provider Unknown | | | | | [place], [place] | [phone] | | | | | [address] | | | | | | [phone] | | | +--------+ + + + [...] [address] | | | | | | [place] [address] | | | | | | [phone] | | | | | | | | +--------+---------+ + + + documented as of this encounter Procedures + +--------+ + + + | Procedure Name | Priori | Date/Time | Associated Diagnosis | Comments | | | ty | | | | + +--------+ + + + | FL C ARM < 1 HOUR | Routin | 05/18/2013 | | Results for this | | | e | 5:53 AM | | procedure are in the | | | | PST | | results section. | + +--------+ + + + documented in this encounter Results FL C-Arm < 1 Hour (05/18/2013 5:53 AM PST) + + | Specimen | + + | | + + + + + | Narrative | Performed At | + + + | This is a non-reportable procedure without a radiologist report and | | | is used for image storage only | | + + + + + | Procedure Note | + + | Armando Rdz Luli - 02/19/2019 11:47 PM PDT This is a non-reportable procedure | | without a radiologist report and isused for image storage only | + + documented in this encounter Visit Diagnoses + + | Diagnosis | + + | Pain Generalized pain | + + documented in this encounter"
--- OUTSIDE RECORDS SUMMARY | ~2020-02-22 | XMS | Encounter Summary ---
Demographics + + + | Address | [address] | | | [place] [address] | + + + | Home Phone | | + + + | Preferred Language | Unknown | + + + | Marital Status | | + + + | Latter Day Affiliation | 1077 | + + + | Race | White | + + + | Ethnic Group | Not or | + + + Author + + + | Author | [facility] | | | and [place] | + + + | Organization | [facility] | | [...] Team Providers + +------+ + | Care Teaching Fellow Name | Role | Phone | + +------+ + PCP | Unavailable | + +------+ + Encounter Details +--------+ + + + + | Date | Type | Department | Care Team | Description | +--------+ + + + + | 11/12/ | Hospital | [facility] | Timur Londono MD | | | 2011 | Encounter | MED CTR [facility] INTRA OP | [address], [place] | | | | | [address] | [address] [place], [place] | | | | | [place], [place] | [address] | | | | | [address] | | | | | | [phone] | | | +--------+ + + + [...] + + documented as of this encounter Miscellaneous Notes Op Note - Timur Londono MD - 11/13/2011 11:13 AM PDTPatient Name: Yeyo Casarez Gender: Raymundo Procedure Date: 11/13/2011 11:50 AM Date of : 1930 Age: 81 Admit Type: Outpatient Room: Endo Room 1 Note Status: Finalized Attending MD: Timur Londono MD Procedure: Colonoscopy Indications: High risk colon cancer surveillance: Personal history of colonic polyps Providers: Eldon Londono MD, Bharath Ambrocio, RN, Pao Barbour, Supply Chain Development Manager Referring MD: Eze Rice MD Medicines: Midazolam 2 mg IV, Meperidine 100 mg IV, Oxygen 3 liters/min nasocannula Complications: No immediate complications. Estimated blood loss: None. Procedure: - Prior to the procedure, a History and Physical was performed, and patient medications, allergies and sensitivities have been reviewed. The patient's tolerance of previous anesthesia has been reviewed. - The risks and benefits of the procedure and the sedation options and risks were discussed with the patient. All questions were answered and informed consent was obtained. - Patient identification and proposed procedure were verified prior to the procedure by the physician, the nurse and the meter/relay technician. The procedure was verified in the procedure room. - Airway Examination: normal oropharyngeal airway and neck mobility and Mallampati Class II (the uvula but not tonsillar pillars visualized). - Mental Status Examination: alert and oriented. - Prior Anticoagulants: The patient has taken Coumadin (warfarin), last dose was 3 days prior to procedure. - ASA Grade Assessment: III - A patient with severe systemic disease. - After reviewing the risks and benefits, the patient was deemed in satisfactory condition to undergo the procedure. - The anesthesia plan was to use moderate sedation/analgesia (conscious sedation). - Immediately prior to administration of medications, the patient was re-assessed for adequacy to receive sedatives. - The heart rate, respiratory rate, oxygen saturations, blood pressure, adequacy of pulmonary ventilation, and response to care were monitored throughout the procedure. - The physical status of the patient was re-assessed after the procedure. After I obtained informed consent, the scope was passed under direct vision. Throughout the procedure, the patient's blood pressure, pulse, and oxygen saturations were monitored continuously. The endoscope was introduced through the anus and advanced to the cecum, identified by the appendiceal orifice, ileocecal valve and palpation. The colonoscopy was somewhat difficult due to multiple diverticula in the colon, significant looping and a tortuous colon. Successful completion of the procedure was aided by using manual pressure, straightening and shortening the scope to obtain bowel loop reduction and using scope torsion. The patient tolerated the procedure well. The quality of the bowel preparation was good. Findings: Perianal examination was normal. The digital rectal exam was abnormal. Findings include decreased sphincter tone. Pertinent negatives include no palpable rectal lesions. Multiple small and large-mouthed diverticula were found in the sigmoid colon. There was narrowing of the colon in association with the diverticular opening. There was evidence of diverticular spasm. Barb-diverticular erythema was seen. There was no evidence of diverticular bleeding. A pedunculated polyp was found in the sigmoid colon. The polyp was 50 mm in size. The polyp was removed with a hot snare. Resection and retrieval were complete. Estimated blood loss: none. Verification of patient identification for the specimen was done. A sessile polyp was found in the cecum. The polyp was 10 mm in size. The polyp was removed with a hot snare. Resection and retrieval were complete. Estimated blood loss: none. Verification of patient identification for the specimen was done. Eight sessile, non-bleeding polyps were found in the descending colon. The polyps were 10 to 20 mm in size. These polyps were removed with a hot snare. Resection and retrieval were complete. Estimated blood loss: none. Verification of patient identification for the specimen was done. Non-bleeding internal hemorrhoids were found during retroflexion and were mild. The exam was otherwise without abnormality. Impression: - Rectal exam revealed decreased sphincter tone. - Moderate diverticulosis in the sigmoid colon. There was narrowing of the colon in association with the diverticular opening. There was evidence of diverticular spasm. Barb-diverticular erythema was seen. There was no evidence of diverticular bleeding. - One 50 mm polyp in the sigmoid colon. Resected and retrieved. - One 10 mm polyp in the cecum. Resected and retrieved. - Eight 10 to 20 mm, non-bleeding polyps in the descending colon. Resected and retrieved. - Non-bleeding internal hemorrhoids. - The examination was otherwise normal. Recommendation: - Discharge patient to home (ambulatory). - Mechanical soft diet for 3 days. - Resume Coumadin (warfarin) at prior dose in 3 days. - Continue present medications. - Await pathology results. - Repeat colonoscopy for surveillance based on pathology results. - Telephone GI clinic for pathology results in 1 week. - Telephone GI clinic if symptomatic. Timur Londono MD Signed Date: 11/13/2011 12:58 PM Number of Addenda: 0 Note initiated on 11/13/2011 11:50 AM Scope Withdrawal Time: 20 minutes 36 seconds Total Procedure Duration Time: 25 minutes 20 seconds <Electronically Signed by Timur Londono MD> 11/13/11 1259 documented in this encounter Plan of Treatment +--------+---------+ + + + | Date | Type | Specialty | Care Team | Description | +--------+---------+ + + + | 06/22/ | Office | Cardiology | Jody Lebron | | | 2019 | Visit | | [address] | | | | | | [address] | | | | | | [place] [address] | | | | | | [phone] | | | | | | | | +--------+---------+ + + + documented as of this encounter Visit Diagnoses Not on filedocumented in this encounter"
--- OUTSIDE RECORDS SUMMARY | ~2020-02-22 | XMS | Encounter Summary ---
Demographics + + + | Address | [address] | | | [place] [address] | + + + | Home Phone | | + + + | Preferred Language | Unknown | + + + | Marital Status | | + + + | Rastafarian Affiliation | 1077 | + + + | Race | White | + + + | Ethnic Group | Not or | + + + Author + + + | Author | [facility] | | | and [place] | + + + | Organization | [facility] | | [...] ECON | Unknown | | | in [facility]) | | | | + + +---------+ + Care Team Providers + +------+ + | Care Geologic Technician Name | Role | Phone | + +------+ + PCP | Unavailable | + +------+ + Encounter Details +--------+ + + + + | Date | Type | Department | Care Team | Description | +--------+ + + + + | 03/18/ | Abstract | [place] [facility] | [facility] | | | 2011 | | Conversion Location | [address] | | | | | [address] | | | | | | [place], [place] | | | | | | [address] | | | | | | [phone] | | | +--------+ + + + [...] + + + | Blood Pressure | 130/74 | 11/13/2011 12:00 AM | | | | | PDT | | + + + + + | Pulse | - | - | | + [...] + + + + | Weight | 77.1 kg (170 lb) | 11/13/2011 12:00 AM | | | | | PDT | | + + + + + | Height | 175.3 cm (5' 9") | 05/18/2008 12:00 AM | | | | | PST | | + + + + + | Body Mass Index | 25.1 | 05/18/2008 12:00 AM | | | | | PST | | + + + + + documented in this encounter Plan of Treatment +--------+---------+ + + + | Date | Type | Specialty | Care Team | Description | +--------+---------+ + + + | 06/22/ | Office | Cardiology | Jody Lebron | | | 2019 | Visit | | [address] | | | | | | [address] | | | | | | [place] [address] | | | | | | [phone] | | | | | | | | +--------+---------+ + + + documented as of this encounter Procedures + +--------+ + + + | Procedure Name | Priori | Date/Time | Associated Diagnosis | Comments | | | ty | | | | + +--------+ + + + | ENDOSCOPY, COLON, | Routin | 11/13/2011 | | Results for this | | DIAGNOSTIC | e | 12:00 AM | | procedure are in the | | | | PDT | | results section. | + +--------+ + + + documented in this encounter Results ENDOSCOPY, COLON, DIAGNOSTIC (11/13/2011 12:00 AM PDT) + + | Specimen | + + | | + + + + + | Narrative | Performed At | + + + | | | + + + documented in this encounter Visit Diagnoses Not on filedocumented in this encounter
--- OUTSIDE RECORDS SUMMARY | ~2020-02-22 | XMS | Clinical Summary ---
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 | 05/18/2018 | | confed[place] goshute heart | | + + + | [...] | | | | | disease of conf[place] | | | | | | artery of confed[place] | | | | | | heart [...] [address] | | | | | | [place] [address] | | | | | | [phone] | | | | | | | [...] +--------+ +---------+--------+ | MEDICARE | MEDICA | [id number] | 11/05/19 | [phone] | | Medica | | | RE | | 00-Pre | 5 | | re | | | PART A | | sent | | | | | | AND B | | | | | | + +--------+ +--------+ +---------+--------+ | AARP | AARP | [id number] | 07/07/19 | [phone] | | Indemn [...] | | al/Fam | | 1930 | [phone] | [place] | | | [place] | | | 0 (Home) | [address] | + +--------+ +--------+ + + Advance Directives + + + + + | Type | Date Recorded | Patient | Explanation | | | | Jingle Writer | | + + + + + | Power of | | | | | Route Driver Salesperson | | | | + + + + + | Advance | 12/03/2017 4:53 | | | | Directive | PM | | | + + + + + | Advance | 12/03/2017 5:41 | | | | Directive | PM | | | + + + + +
--- OUTSIDE RECORDS SUMMARY | ~2020-02-22 | XMS | Encounter Summary ---
Demographics + + + | Address | [address] | | | [place] [address] | + + + | Home Phone | | + + + | Preferred Language | Unknown | + + + | Marital Status | | + + + | Temple Affiliation | 1077 | + + + | Race | White | + + + | Ethnic Group | Not or | + + + Author + + + | Author | [facility] | | | and [place] | + + + | Organization | [facility] | | | [...] ECON | Unknown | | | in [facility]) | | | | + + +---------+ + Care Team Providers + +------+ + | Care Director Sanitation Bureau Name | Role | Phone | + +------+ + PCP | Unavailable | + +------+ + Encounter Details +--------+ + + + + | Date | Type | Department | Care Team | Description | +--------+ + + + + | 09/08/ | Hospital | [facility] | Conversion | Diagnosis unknown | | 2018 | Encounter | [address] | Transaction, | | | | | [address] | Provider Unknown | | | | | [place], [place] | | | | | | [address] | (Fax) | | | | | [phone] | | | +--------+ + + + [...] [address] | | | | | | [place] [address] | | | | | | [phone] | | | | | | | [...]
--- OUTSIDE RECORDS SUMMARY | ~2020-02-22 | XMS | Encounter Summary ---
Demographics + + + | Address | [address] | | | [place] [address] | + + + | Home Phone | | + + + | Preferred Language | Unknown | + + + | Marital Status | | + + + | Restorationism Affiliation | 1077 | + + + | Race | White | + + + | Ethnic Group | Not or | + + + Author + + + | Author | [facility] | | | and [place] | + + + | Organization | [facility] | | [...] Team Providers + +------+ + | Care Telegraph Printer Mechanic Name | Role | Phone | + +------+ + | Nalini Jones MD | PCP | | + +------+ + Reason for Referral Evaluate & Treat (Routine) +--------+ + + + + + | Status | Reason | Specialty | Diagnoses / | Referred By | Referred To | | | | | Procedures | Contact | Contact | +--------+ + + + + + | Closed | Specialty | Cardiac | Diagnoses | Alejandra Keating | | | Services | Rehabilitatio | Chronic | MD Sera | HOSPITAL | | | Required | n | diastolic | 1100 | PHYSICAL | | | | | heart | GO[facility]ALS | THERAPY 1425 | | | | | failure | AICHA F | RADHA | | | | | ([facility]) | [facility] | [place] | | | | | Moderate | [address] | [address] | | | | | mitral | Phone: | Phone: | | | | | regurgitatio | [phone] | [phone] | | | | | n by prior | Fax: | Fax: | | | | | echocardiogr | [phone] | [phone] | | | | | am Chronic | | | | | | | respiratory | | | | | | | failure with | | | | | | | hypoxia, on | | | | | | | home O2 | | | | | | | therapy | | | | | | | ([facility]) Stage | | | | | | | 3 chronic | | | | | | | kidney | | | | | | | disease | | | | | | | ([facility]) | | | +--------+ + + + + + Reason for Visit + + + | Reason | Comments | + + + | Follow-up | | + + + Encounter Details +--------+---------+ + + + | Date | Type | Department | Care Team | Description | +--------+---------+ + + + | 05/19/ | Office | [facility] | Sera Keating, | Chronic diastolic | | 2019 | Visit | CARDIOLOGY [place] | MD Bozena BENITEZ | heart failure (HCC) | | | | [address] | [place], [place] | (Primary Dx); | | | | [address] | [address] | Moderate mitral | | | | [place] | | regurgitation by | | | | [address] | | prior | | | | [phone] | | echocardiogram; | | | | | | Chronic respiratory | | | | | | failure with | | | | | | hypoxia, on home O2 | | | | | | therapy (HCC); Stage | | | | | | 3 chronic kidney | | | | | | disease (HCC) | +--------+---------+ + + + Social History [...] + + + | Blood Pressure | 110/64 | 05/19/2019 2:44 PM | | | | | PST | | + + + + + | Pulse | 78 | 05/19/2019 2:44 PM | | | | | PST | | + + + + + | Temperature | - | - | | + + + + + | Respiratory Rate | - | - | | + + + + + | Oxygen Saturation | 95% | 05/19/2019 2:44 PM | | | | | PST | | + + + + + | Inhaled Oxygen | - | - | | | Concentration | | | | + + + + + | Weight | 64.4 kg (142 lb) | 05/19/2019 2:44 PM | | | | | PST | | + + + + + | Height | 163.8 cm (5' 4.5") | 05/19/2019 2:44 PM | | | | | PST | | + + + + + | Body Mass Index | 24 | 05/19/2019 2:44 PM | | | | | PST | | + + + + + documented in this encounter Progress Notes Sera Keating MD - 05/19/2019 2:30 PM PSTFormatting of this note might be different f rom the original. Date of visit: 05/19/2019 Primary Care Physician: Nalini Jones MD CHIEF COMPLAINT: Chief Complaint Patient presents with Follow-up HISTORY OF PRESENT ILLNESS: Yeyo is 89 y.o. here for Complex past medical history and presentation. Denies any chest pain. Continues to be on chronic home O2 2 L currently. Comes in with his son carlos without a wheelchair. Currently in long care facility. Continues to have arthritic pain especially in the right knee. His diuretic doses were adjusted by Jody Pascual currently he has achieved euvolemic status wi th no recurrent hospitalization currently on torsemide 10 mg twice daily and Spironolactone 25 mg. Reviewed his recent hospitalization from September 2018. Admitted for exacerbation of urinary tract infection and acute renal injury. At that time was noted to be bradycardic, unfortunately was taken off all his medications d igoxin and metoprolol succinate. Was seen by Jody Pascual who restarted his metoprolol 12.5 twice daily[address] Also sees Dr. Jones who increase his torsemide as well. History of coronary artery disease, chronic atrial fibrillation on rate control and anticoa gulation. Past medical history, SH, FH, and medications were reviewed in the chart. Medications: Outpatient Encounter Medications as of 05/19/2019 Medication Sig Dispense Refill acetaminophen (TYLENOL) 500 mg tablet Take 500 mg by mouth every 4 (four) hours as need ed for Pain. albuterol-ipratropium (COMBIVENT RESPIMAT) 100-20 mcg/puff inhaler Inhale 1 puff into t he lungs 4 times daily. apixaban (ELIQUIS) 2.5 mg tablet Take 1 tablet by mouth 2 (two) times daily. aspirin 81 MG tablet Take 81 mg by mouth daily. atorvaSTATin (LIPITOR) 10 mg tablet Take 1 tablet by mouth every morning. bisoprolol (ZEBETA) 5 mg tablet Take 0.5 tablets by mouth At Bedtime. Hold for HR < 50, or SBP< 100 mmhg 15 tablet 11 Calcium Carbonate-Vitamin D (OYST-DANIELLE-D 500 [...] and tomasa ble oxygen system. No facility-administered encounter medications on file as of 05/19/2019. Allergies Allergies Allergen Reactions Fentanyl Diarrhea REVIEW OF SYSTEMS: Constitutional: Chronic fatigue weight has been stable. HEENT: Negative for nosebleeds, ear discharge, nasal congestion or soar throat. Eyes: Negative for visual disturbance, redness, or secretion. Respiratory: Chronic hypoxia requiring O2. Cardiovascular: As HPI. Gastrointestinal: Negative for nausea, vomiting, diarrhea, abdominal pain and blood in stoo l. Genitourinary: Negative for dysuria or hematuria. Musculoskeletal: chronic arthritic pain. Skin: Negative for rash. Neurological: Negative for dizziness. No numbness. No recent falls. No slurred speech. Hematological: No significant bruising. Psychiatric/Behavioral: No depression or anxiety. PHYSICAL EXAM Vital Signs: BP 110/64 | Pulse 78 | Ht 1.638 m (5' 4.5") | Wt 64.4 kg (142 lb) | SpO2 95% | BMI 24. 00 kg/m GENERAL APPEARANCE: Alert, oriented, cooperative, no distress, appears stated age. HEENT: Extraocular movements were intact. No jaundice. Pupiles round and reactive. NECK: No JVD, lymphadenopathy. Carotid upstrokes normal. No carotid bruit heard. CARDIAC: Regular rhythm and rate. There is normal S1 and S2. No galop. No murmur. CHEST: Managed air exchange bilaterally. ABDOMEN: Soft.No tenderness or guarding. No palpable organs. Active bowel sounds. EXTREMITIES: No lower extremities edema, cyanosis or clubbing. NEURO: Alert and oriented times three with no focal deficit. Cranial nerves are grossly no rmal. SKIN: Warm and dry. No rash. Psych: Normal affect and mood. 05/13/2019 WBC 7.2, hemoglobin 14.2, platelets 225, sodium 137, potassium 5.0, chloride 96, bicarb 35, BUN 34, creatinine 1.16, GFR 60. AST 2035, ALT 52, alk phos 121, total cholesterol 136, triglycerides 90, HDL 52, LDL 65. WBC 6.8, hemoglobin 14.5, platelets 221, sodium 138, potassium 5.3, chloride 2 5, bicarb 34 , BUN 29, creatinine 1.04, GFR 68. AST 25, ALT 29, alk phos 114. 11/05/2018 WBC 6.2, hemoglobin 12.7, platelets 224. Sodium 144, potassium 4.6, chloride 100, BUN 10, creatinine 0.76. AST 20, ALT 23, alk phos 118. Lab Results Component Value Date/Time NA 135 06/25/2018 09:05 AM NA 138 12/04/2017 11:47 AM NA 132 (L) 11/14/2017 05:15 AM K 4.7 06/25/2018 09:05 AM K 5.0 12/04/2017 11:47 AM K 4.5 11/14/2017 05:15 AM CO2 38 (A) 06/25/2018 09:05 AM CO2 32 (A) 12/04/2017 11:47 AM CO2 38 (H) 11/14/2017 05:15 AM BUN 20 06/25/2018 09:05 AM BUN 32 (A) 12/04/2017 11:47 AM BUN 21 11/14/2017 05:15 AM CALCIUM 9.4 06/25/2018 09:05 AM CALCIUM 9.8 12/04/2017 11:47 AM CALCIUM 8.7 11/14/2017 05:15 AM MG 2.0 11/13/2017 05:17 AM MG 2.0 11/12/2017 02:15 AM Lab Results Component Value Date/Time WBC 10.04 11/14/2017 05:15 AM WBC 9.11 11/13/2017 05:17 AM WBC 10.62 11/12/2017 02:15 AM HGB 10.4 (L) 11/14/2017 05:15 AM HGB 10.4 (L) 11/13/2017 05:17 AM HGB 10.4 (L) 11/12/2017 02:15 AM MCV 68.7 (L) 11/14/2017 05:15 AM MCV 69.1 (L) 11/13/2017 05:17 AM MCV 68.7 (L) 11/12/2017 02:15 AM LABPLAT 300 11/14/2017 05:15 AM LABPLAT 295 11/13/2017 05:17 AM LABPLAT 314 11/12/2017 02:15 AM Lab Results Component Value Date ALT 36 06/25/2018 ALT 27 11/11/2017 GLUF 117 (A) 06/25/2018 GLUF 96 12/04/2017 EC09/30/2018 From [facility] sinus bradycardia with first-degree AV block. Last Echo: 10/05/2018 1. The left ventricle is normal in size, wall thickness and systolic function EF 55-60% 2. The right ventricle is moderately enlarged with normal systolic function. 3. Moderate mitral regurgitation with severely dilated left atrium. 4. Mild tricuspid regurgitation and moderate pulmonary hypertension. Last Stress test: 2017 Reported with no ischemia, normal LV size and function. Last Cath: 2006 Reviewed. LAD mild disease. LCX mild disease/ first OM EMERGENCY DOCTOR. RCA is EMERGENCY DOCTOR at proximal segment. Left to right collaterals. Failed attempt to open OM and RCA. Last US carotid: ASSESSMENT: Patient is 89 y.o. with 1. Paroxysmal atrial fibrillation on rate control strategy and anticoagulation, CHADSVASc s core of 5. 2. Chronic diastolic heart failure, HFpEF. NYH class III, stage C. 3. Chronic respiratory failure with hypoxia on home O2 currently on 2 L. 4. Hypertension. 5. Chronic anticoagulation. 6. Chronic debility. 7. Coronary artery disease, as mention above. 8. Diaphragmatic paralysis. 9. Microcytic anemia. 10. Moderate mitral regurgitation. 11. Moderate pulmonary hypertension. Plan: Complex past medical history and decision making is challenging multiple comorbidities. At this time will continue with spironolactone 25 mg bid. Has been euvolemic with torsemide 10 mg twice daily. On low-dose bisoprolol 2.5 mg once a day. Continue with apixaban low-dose. Will continue monitoring blood level. BNP is ordered to evaluate baseline and the patient is euvolemic. Will be referred for cardiopulmonary rehab. Follow up in 2-3 month or sooner if needed *This report has been prepared using a voice recognition system. The report was reviewed fo r accuracy, however, sound-alike word errors, addition and/or deletions may occur. If there is any question about this report please contact me. Sera Keating MD, MPH documented in this encounter Plan of Treatment +--------+---------+ + + + | Date | Type | Specialty | Care Team | Description | +--------+---------+ + + + | 06/22/ | Office | Cardiology | Jody Lebron | | | 2020 | Visit | | [address] | | | | | | [address] | | | | | | [place] [address] | | | | | | [phone] | | | | | | | | +--------+---------+ + + + + +------+--------+ + + | Name | Type | Priori | Associated Diagnoses | Order Schedule | | | | ty | | | + +------+--------+ + + | B Type Natriuretic | Lab | Routin | Chronic diastolic | 1 Occurrences | | Peptide | | e | heart failure (HCC) | starting 05/19/2019 | | | | | Moderate mitral | until 05/19/2020 | | | | | regurgitation by | | | | | | prior echocardiogram | | | | | | Chronic | | | | | | respiratory failure | | | | | | with hypoxia, on | | | | | | home O2 therapy | | | | | | ([facility]) Stage 3 | | | | | | chronic kidney | | | | | | disease (HCC) | | + +------+--------+ + + + + +--------+ + + | Name | Type | Priori | Associated Diagnoses | Order Schedule | | | | ty | | | + + +--------+ + + | Ambulatory Referral | Outpatient | Routin | Chronic diastolic | Ordered: 05/19/2019 | | to Pulmonary Rehab | Referral | e | heart failure (HCC) | | | | | | Moderate [...] | | disease (HCC) | | + + +--------+ + + documented as of this encounter Visit Diagnoses + + | Diagnosis | + + | Chronic diastolic heart failure (HCC) - Primary Chronic diastolic heart failure | + + | Moderate mitral regurgitation by prior echocardiogram Mitral valve disorders | + + | Chronic respiratory failure with hypoxia, on home O2 therapy (HCC) | + + | Stage 3 chronic kidney disease (HCC) | + + documented in this encounter
--- OUTSIDE RECORDS SUMMARY | ~2020-02-22 | XMS | Encounter Summary ---
Demographics + + + | Address | [address] | | | [place] [address] | + + + | Home Phone | | + + + | Preferred Language | Unknown | + + + | Marital Status | | + + + | Voodoo Affiliation | 1077 | + + + | Race | White | + + + | Ethnic Group | Not or | + + + Author + + + | Author | [facility] | | | and [place] | + + + | Organization | [facility] | | | [...] ECON | Unknown | | | in [facility]) | | | | + + +---------+ + Care Team Providers + +------+ + | Care Orchid Hand Name | Role | Phone | + +------+ + PCP | Unavailable | + +------+ + Encounter Details +--------+ + + + + | Date | Type | Department | Care Team | Description | +--------+ + + + + | 05/18/ | Hospital | [facility] | Timur Londono MD | | | 2007 | Encounter | MED CTR GENERIC OP | [address], [place] | | | | | CONV DEPT [address] [place], [place] | | | | | [address] [place], | [address] | | | | | [place] [address] | | | | | | [phone] | | | +--------+ + + + [...] [address] | | | | | | [place] [address] | | | | | | [phone] | | | | | | | | +--------+---------+ + + + documented as of this encounter Visit Diagnoses Not on filedocumented in this encounter"
--- OUTSIDE RECORDS SUMMARY | ~2020-02-22 | XMS | Encounter Summary ---
Demographics + + + | Address | [address] | | | [place] [address] | + + + | Home Phone | | + + + | Preferred Language | Unknown | + + + | Marital Status | | + + + | Restorationist Affiliation | 1077 | + + + [...] | | | in [facility]) | | | | + + +---------+ + Care Team Providers + +------+ + | Care Co Founder Name | Role | Phone | + +------+ + PCP | Unavailable | + +------+ + Encounter Details +--------+ + + + + | Date | Type | Department | Care Team | Description | +--------+ + + + + | 10/27/ | Hospital | [facility] | Conversion | Pain | | 2013 | Encounter | CONVERSION [address] | Transaction, | | | | | [address] | Provider Unknown | | | | | [place], [place] | [phone] | | | | | [address] | | | | | | [phone] | | | +--------+ + + + [...] [address] | | | | | | [place] [address] | | | | | | [phone] | | | | | | | [...]
--- OUTSIDE RECORDS SUMMARY | ~2020-02-22 | XMS | Encounter Summary ---
Demographics + + + | Address | [address] | | | [place] [address] | + + + | Home Phone | | + + + | Preferred Language | Unknown | + + + | Marital Status | | + + + | Voodoo Affiliation | 1077 | + + + | Race | White | + + + | Ethnic Group | Not or | + + + Author + + + | Author | [facility] | | | and [place] | + + + | Organization | [facility] | | | and [...] ECON | Unknown | | | in [facility]) | | | | + + +---------+ + Care Team Providers + +------+ + | Care Medical Records Director Name | Role | Phone | + [...] + + | 12/14/ | Office | [facility] | Sera Keating, | Chronic diastolic | | 2020 | Visit | CARDIOLOGY [place] | [address] | heart failure (HCC) | | | | [address] | [place], [place] | (Primary Dx); | | | | [address] | [address] | Essential | | | | [place] | | hypertension; | | | | [address] | | Coronary artery | | | | [phone] | | disease of quechan | | | | | | artery of quechan | | | | | | 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 | | | | | | (HCC) | +--------+---------+ + + + Social [...] encounter Progress Notes Sera Keating MD - 12/15/2019 10:00 AM PDTFormatting of this note might be different f rom the original. Date of visit: 12/15/2019 Primary Care Physician: Nalini Jones MD CHIEF COMPLAINT: Chief Complaint Patient presents with Follow-up HISTORY OF PRESENT ILLNESS: Yeyo is 89 y.o. here for Complex past medical history and presentation. No symptoms of angina. Continues to be on chronic home O2 2 L currently. Comes in with his son today using a walker. Continues to be in [facility]. Continues to have arthritic pain especially in the right knee. His diuretic doses were adjusted by Jody Pascual currently he has achieved euvolemic status wi th no recurrent hospitalization currently on torsemide 10 mg twice daily and Spironolactone 25 mg twice daily. Last hospitalization was September 2018. Admitted for exacerbation of urinary tract infection and acute renal injury. At that time was noted to be bradycardic, unfortunately was taken off all his medications d igoxin and metoprolol succinate. History of coronary artery disease, chronic atrial fibrillation on rate control and anticoa gulation. Past medical history, SH, FH, and medications were reviewed in the chart. Medications: Outpatient Encounter Medications as of 12/15/2019 Medication Sig Dispense Refill acetaminophen (TYLENOL) 500 [...] or SBP< 100 mmhg 30 tablet 11 Coenzyme Q10 (COQ10) 200 MG CAPS Take 200 mg by mouth Daily. DEBROX 6.5 % otic solution Place 1 drop into both ears 2 times daily. MAGNESIUM PO Take 400 mg by mouth daily. mirabegron (MYRBETRIQ) 50 mg ER tablet Take 1 tablet by mouth daily. Multiple Vitamins-Minerals (CENTRUM SILVER) TABS one by mouth daily (Patient taking dif ferently: 1 tablet.) Multiple Vitamins-Minerals (PRESERVISION AREDS 2 PO) Take 1 capsule by mouth daily. oxyCODONE-acetaminophen (PERCOCET) 5-325 mg per tablet Take 1 tablet by mouth Daily as needed for Pain. spironolactone (ALDACTONE) 25 mg tablet Take 25 [...] facility-administered encounter medications on file as of 12/15/2019. Allergies Allergies Allergen Reactions Fentanyl Diarrhea REVIEW OF SYSTEMS: Constitutional: Chronic fatigue weight has been stable. HEENT: Negative for nosebleeds, ear discharge, nasal congestion or soar throat. Eyes: Wears glasses, redness, or secretion. Respiratory: Chronic hypoxia requiring O2. Cardiovascular: As HPI. Gastrointestinal: Negative for nausea, vomiting, diarrhea, abdominal pain and blood in stoo l. Genitourinary: No dysuria, pinkish color lately. Musculoskeletal: chronic arthritic pain. Using a walker to ambulate. Skin: Negative for rash. Neurological: Negative for dizziness. No numbness. No recent falls. No slurred speech. Hematological: No significant bruising. Psychiatric/Behavioral: No depression or anxiety. PHYSICAL EXAM Vital Signs: BP 98/66 | Pulse 66 | Ht 1.626 m (5' 4") | Wt 68.5 kg (151 lb) | SpO2 93% | BMI 25.92 kg/m GENERAL APPEARANCE: Alert, oriented, cooperative, no [...] No rash. Psych: Normal affect and mood. LABS WBC 7.0, hemoglobin 15.1, platelets 242, sodium 138, potassium 4.9, chloride 96, bicarb 37, creatinine 1.03, BUN 33, GFR 68, AST 29, ALT 31, alk phos 112. Magnesium 2.4 calcium 9.8. 05/13/2019 WBC 7.2, hemoglobin 14.2, platelets 225, [...] (A) 06/25/2018 GLUF 96 12/04/2017 EC09/30/2018 From [facility] sinus bradycardia with first-degree AV block. Last [...] mild disease. LCX mild disease/ first OM ADMINISTRATIVE SERVICES DIRECTOR. RCA is ADMINISTRATIVE SERVICES DIRECTOR at proximal segment. Left to right collaterals. [...] and decision making is challenging multiple comorbidities. Continue with spironolactone 25 mg bid. Has been euvolemic with torsemide 10 mg twice daily. Heart rate controlled with bisoprolol 5 mg once daily. Continue with apixaban low-dose. Will continue monitoring H and H. Repeat CBC, CMP and urinalysis. We will follow-up with Jody Pascual and with myself after. Will call with any change in symptoms. *This report has been prepared using a [...] [address] | | | | | | [place] [address] | | | | | | [phone] | | | | | | | | +--------+---------+ + + + + +------+--------+ + + | Name | Type | Priori | Associated Diagnoses | Order Schedule | | | | ty | | | + +------+--------+ + + | Urinalysis with | Lab | Routin | Chronic diastolic | 1 Occurrences | | Microscopic if | | e | heart failure (HCC) | starting 12/15/2019 | | Indicated | | | Essential | until 12/14/2020 | | | | | hypertension | | | | | | Coronary artery | | | | | | disease of quechan | | | | | | artery of quechan | | | | | | 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 | | | | | | (HCC) | | + +------+--------+ + + | CBC no Differential | Lab | Routin | Chronic diastolic | 1 Occurrences | | | | e | heart failure (HCC) | starting 12/15/2019 | | | | | Essential | until 12/14/2020 | | | | | hypertension | | | | | | Coronary artery | | | | | | disease of quechan | | | | | | artery of quechan | | | | | | 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 | | | | | | (HCC) | | + +------+--------+ + + | Comprehensive | Lab | Routin | Chronic diastolic | 1 Occurrences | | Metabolic Panel | | e | heart failure ([facility]) | starting 12/15/2019 | | | | | Essential | until 12/14/2020 | | | | | hypertension | | | | | | Coronary artery | | | | | | disease of quechan | | | | | | artery of quechan | | | | | | 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 | | | | | | ([facility]) | | + +------+--------+ + + documented as of this encounter Visit Diagnoses + + | Diagnosis | + + | Chronic diastolic heart failure (HCC) - Primary Chronic diastolic heart failure | + + | Essential hypertension Unspecified essential hypertension | + + | 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
--- OUTSIDE RECORDS SUMMARY | ~2020-02-22 | XMS | Encounter Summary ---
Demographics + + + | Address | [address] | | | [place] [address] | + + + | Home Phone | | + + + | Preferred Language | Unknown | + + + | Marital Status | | + + + | Buddhist Affiliation | 1077 | + + + | Race | White | + + + | Ethnic Group | Not or | + + + Author + + + | Author | [facility] | | | and [place] | + + + | Organization | [facility] | | | [...] | Unknown | | | in [facility]) | | | | + + +---------+ + Care Team Providers + +------+ + | Care Training And Development Specialist Name | Role | Phone | + +------+ + PCP | Unavailable | + +------+ + Encounter Details +--------+ + + + + | Date | Type | Department | Care Team | Description | +--------+ + + + + | 10/25/ | Hospital | [facility] | Conversion | Pain | | 2018 | Encounter | CONVERSION [address] | Transaction, | | | | | [address] | Provider Unknown | | | | | [place], [place] | [phone] | | | | | [address] | | | | | | [phone] | | | +--------+ + + + [...] [address] | | | | | | [place] [address] | | | | | | [phone] | | | | | | | | +--------+---------+ + + + documented as of this encounter Procedures + +--------+ + + + | Procedure Name | Priori | Date/Time | Associated Diagnosis | Comments | | | ty | | | | + +--------+ + + + | XR CHEST 2 VIEWS | Routin | 07/29/2017 | | Results for this | | | e | 2:28 AM | | procedure are in the | | | | PST | | results section. | + +--------+ + + + documented in this encounter Results XR Chest 2 Vws (07/29/2017 2:28 AM PST) + + | Specimen | [...]
--- OUTSIDE RECORDS SUMMARY | ~2020-02-22 | XMS | Encounter Summary ---
Demographics + + + | Address | [address] | | | [place] [address] | + + + | Home Phone | | + + + | Preferred Language | Unknown | + + + | Marital Status | | + + + | Religion Affiliation | 1077 | + + + | Race | White | + + + | Ethnic Group | Not or | + + + Author + + + | Author | [facility] | | | and [place] | + + + | Organization | [facility] | | [...] ECON | Unknown | | | in [facility]) | | | | + + +---------+ + Care Team Providers + +------+ + | Care Managed Care Specialist Name | Role | Phone | [...] Description | +--------+---------+ + + + | 06/24/ | Office | [facility] | Jody Lebron | Persistent atrial | | 2019 | Visit | CARDIOLOGY REGGIE | [address] | fibrillation (HCC) | | | | [address] | [address] [address] | (Primary Dx); | | | | [address] | [place] [address] | Coronary artery | | | | [place] | [phone] | disease [place] | | | | [address] | | artery [place] | | | | [phone] | | 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 | | | | | | (HCC); History of | | | | | | non-ST elevation | | | | | | myocardial | | | | | | infarction (NSTEMI); | | | | | | Chronic diastolic | | | | | | heart failure (HCC); | | | | | | Moderate [...] | | | | | disease (HCC); Mixed | | | | | | restrictive and | | | | | | obstructive lung | | | | | [...] + + + | Blood Pressure | 110/58 | 06/24/2019 9:05 AM | | | | | PST | | + + + + + | Pulse | 123 | 06/24/2019 9:05 AM | | | | | PST | | + + + + + | Temperature | - | - | | + + + + + | Respiratory Rate | - | - | | + + + + + | Oxygen Saturation | 96% | 06/24/2019 9:05 AM | 2L of oxygen | | | | PST | | + + + + + | Inhaled Oxygen | - | - | | | Concentration | | | | + + + + + | Weight | 69.3 kg (152 lb 11.2 | 06/24/2019 9:05 AM | | | | oz) | PST | | + + + + + | Height | 163.8 cm (5' 4.5") | 06/24/2019 9:05 AM | | | | | PST | | + + + + + | Body Mass Index | 25.81 | 06/24/2019 9:05 AM | | | | | PST | | + + + + + documented in this encounter Patient Instructions Patient Instructions Jody Lebron FNP - 06/24/2019 9:00 AM ZANEI made These tran es to medications: increased bisoprolol to 5 mg Nightly, and if feel dizzy or lightheaded o n higher dose, can be changed to 2.5 mg BID See me back in 4 weeks documented in this encounter Progress Notes Jody Lebron FNP - 06/24/2019 9:00 AM PSTFormatting of this note might be differe nt from the original. Date of visit: 06/25/2019 Primary Care Physician: Nalini Jones MD CHIEF COMPLAINT: Chief Complaint Patient presents with Follow-up HISTORY OF PRESENT ILLNESS: Jose Ayala is an 89 year old man who is here today for one month follow-up. He is with his son Blayne, today , who contributed to history , and is his primary caregive r, though he also lives in assisted living at [facility]. 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 He has now established care with Dr. 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 Though previously documented as valvular atrial fibrillation , he has not undergone valve surgery, either repair or replacement, and does not have severe rheumatic mitral stenosis. His current and previous testing and procedures are detailed below. He was previously hospitalized on November 1405/2018 until December 022017 at [facility] for increa sed dyspnea, edema, and [...] fib . He was admitted again to [facility] September 30 - October 04, 2018 after a ground-level fall at home with injury to his left shoulder, predominantly soft tissue, symptomatic maurice cardia, hypotension, acute kidney injury,in the setting of chronic UTI. He has not been hospitalized since. His current and previous testing and procedures are detailed below I saw him last on 05/19/2019 when I had started him on Bisoprolol 2.5 mg qhs for better h eart rate control, instead of metoprolol, and also more cardiac selective with his severe l david disease. When last seen by Dr. Godwin, he was doing well with heart rate controlled and no cole ges to medications . He referred him to cardiac rehab , which he is on the waiting list for. He reports today that he has noticed a little more shortness of breath, and feeling less e nergy , but overall has been doing better His weight had been up to 150 lbs, but down again to been stable 146-149 lbs, which I think is due more to better appetite than fluid, as euvolemic ,and BNP again good at 156 o n November labs. Unfortunately heart rate has been increasing in last few days per his records, and in Afib with RVR today He still as ongoing HERNANDEZ with chronic [...] fractures, and O2 and tolerates. Lives in [place] [facility]. Son lives nearby. Use d to live in [facility] Medications Prior to Visit Medication Sig [...] EXAM: Wt Readings from Last 3 Encounters: 06/24/19 69.3 kg (152 lb 11.2 oz) 05/19/19 64.4 kg (142 lb) 05/06/19 67.8 kg (149 lb 8 oz) Temp Readings from Last 3 Encounters: No data found for Temp BP Readings from Last 3 Encounters: 06/24/19 110/58 05/19/19 110/64 05/06/19 104/68 Pulse Readings from Last 3 Encounters: 06/24/19 123 05/19/19 78 05/06/19 91 Vital signs: 12/24/2018 Wt:143 Lbs. BP:110/56 . [...] branch/ramus intermedius branch, and complete occlusion RCA. [id number]-[id number] involvement of the rest of the system.Good [...] atrial fib is 73 bpm, old septal NH. Nonspecific ST and T-wave abnormalities. Stress heart [...] Valsalva, 41 mm. Mobile intra-arterial septum Echo: 11/12/2017[facility] . Atrial fib. EF 55-60 percent. LV [...] te pulmonary hypertension, RVSP 50.90 mmHg. Trace VT. No pericardial effusion. 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 Rate 92 bpm, QRS 92 ms, QTC 4 30 ms, wondering baseline, tracing personally reviewed by me E K10/19/2018: NS rhythm, PACs, A. fib at 85 bpm, VT 236 ms, QRS 94 ms, QTC 430 ms burt negrete personally reviewed by me, also had atrial fib with controlled ventricular response at 62 bpm captured when EKG tracing allowed to run EK06/24/2019: Atrial fib with RVR, occasional PVC. Rate 123 bpm, QRS 90 ms, QTC 449 ms, tracing personally reviewed by mt LABS Labs: 03/31/2018: BMP: Sodium 139, potassium [...] hematocrit 40.8, plate lets 298. Labs: 09/30/2018: [facility]: CMP: Sodium 131, potassium 4.9, chloride [...] 4.43, hemoglobin 14.2, hematocrit 43.6, platelets 225 ASSESSMENT & PLAN: He was here today with his son for 1 month follow-up. He has problems as detailed below with significant co morbidities, and is a DNR/DNI. His labs performed 05/12/2019 are detailed above, and shows again almost normal BNP of 156 , so not fluid overloaded, and CMP normal except for mildly elevated BUN, with normal GFR o f 60 and creatinine of 1.16, and his lipids are well controlled on atorvastatin 10 mg, and his CBC was normal, and ferritin normal, though declined from previously. Unfortunately , his EKG shows Afib with RVR at 123 bpm, and I noted his heart rate had bee n trending up in the last few days at his facility. I discussed with him and his son that his mildly increased dyspnea with feeling of needin g to cough likely from his atrial fib with RVR. Despite this , he is continuing to do well with good activity tolerance as discussed in H PI, and better appetite, and appears euvolemic today, despite weight being up. I have increased his bisoprolol to 5 mg qhs to better control his heart rate, or can take bisoprolol as 2.5 BID if does not tolerate. It should again be held for heart rate less ellen n 50, or systolic blood pressure less than 100. I made no other changes to his [...] Rehab as ordered by Dr. Godwin. I will see him back 07/29/2019 1. Persistent atrial fibrillation 2. 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 History of non-ST elevation myocardial infarction (NSTEMI) 4. Chronic diastolic heart failure (HCC) 5. Moderate mitral regurgitation by prior echocardiogram 6. Chronic anticoagulation 7. Essential hypertension 8. Mixed hyperlipidemia 9. Other secondary pulmonary hypertension (HCC) 10. Encounter for monitoring diuretic therapy 11. Chronic respiratory failure with hypoxia, on home O2 therapy (HCC) 12. Stage 3 chronic kidney disease (HCC) 13. 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 Problem list. Taylor BARRETO [facility] 06/25/2019 Ashley castro in this encounter Plan of Treatment +--------+---------+ + + + | Date | Type | Specialty | Care Team | Description | +--------+---------+ + + + | 06/22/ Office | Cardiology | Jody Lebron | | | 2019 | Visit | | [address] | | | | | | [address] | | | | | | [place] [address] | | | | | | [phone] | | | | | | | | +--------+---------+ + + + documented as of this encounter Procedures + +--------+ + + + | Procedure Name | Priori | Date/Time | Associated Diagnosis | Comments | | | ty | | | | + +--------+ + + + | ECG 12 LEAD | Routin | 06/24/2019 | Persistent atrial | Results for this | | | e | 9:16 AM | fibrillation (HCC) | procedure are in the | | | | PST | | results section. | + +--------+ + + + documented in this encounter Results ECG 12 lead (06/24/2019 9:16 AM PST) + + + + + + | Component | Value | Ref Range | Performed | Pathologist | | | | | At | Signature | + + + + + + | VENTRICULAR | 123 | BPM | [facility] | | | RATE EKG | | | | | + + + + + + | ATRIAL RATE | 192 | BPM | [facility] | | + + + + + + | QRS | 90 | ms | [facility] | | | DURATION | | | | | + + + + + + | Q-T | 314 | ms | [facility] | | | INTERVAL | | | | | + + + + + + | Q-T | 449 | ms | [facility] | | | INTERVAL | | | | | | (CORRECTED) | | | | | + + + + + + | QRS AXIS | 70 | degrees | [facility] | | + + + + + + | T AXIS | 49 | degrees | [facility] | | + + + + + + | INTERPRETAT | Please refer to | | [facility] | | | ION TEXT | Providers office visit | | | | | | note for Providers | | | | | | Interpretation.Confirmed | | | | | | by [facility] [place] Read Only, | | | | | | [employer] ([id number]), | | | | | | editor magazine Edgardo Cueva | | | | | | ([id number]) on 06/24/2019 | | | | | | 9:48:30 AM | | | | + + [...] Primary Atrial fibrillation | + + | Coronary artery disease of [place] artery of [place] heart with stable angina pectoris | | [...] kidney disease (HCC) | + + | 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
--- OUTSIDE RECORDS SUMMARY | ~2020-02-22 | XMS | Encounter Summary ---
Demographics + + + | Address | [address] | | | [place] [address] | + + + | Home Phone | | + + + | Preferred Language | Unknown | + + + | Marital Status | | + + + | Christianity Affiliation | 1077 | + + + | Race | White | + + + | Ethnic Group | Not or | + + + Author + + + | Author | [facility] | | | and [place] | + + + | Organization | [facility] | | | [...] ECON | Unknown | | | in [facility]) | | | | + + +---------+ + Care Team Providers + +------+ + | Care Automobile Service Advisor Name | Role | Phone | + [...] [phone] | | | | | | [place], [place] | | | | | | [address] | | | | | | [phone] | | | +--------+ + + + [...] [address] | | | | | | [place] [address] | | | | | | [phone] | | | | | | | [...]
--- OUTSIDE RECORDS SUMMARY | ~2020-02-22 | XMS | Encounter Summary ---
Demographics + + + | Address | [address] | | | [place] [address] | + + + | Home Phone | | + + + | Preferred Language | Unknown | + + + | Marital Status | | + + + | Jain Affiliation | 1077 | + + + [...] Team Providers + +------+ + | Care Budder Name | Role | Phone | + +------+ + | Nalini Jones MD | PCP | | + +------+ + Reason for Visit + +--------+ + | Reason | Onset | Comments | | | Date | | + +--------+ + | Medication Question | 03/24/ | | | | 2018 | | + +--------+ + Encounter Details +--------+ + + + + | Date | Type | Department | Care Team | Description | +--------+ + + + + | 03/24/ | Telephone | [facility] | Jody Lebron | Medication Question | | 2018 | | [facility] | [address] | | | | | [address] | | | | | [address] | [place] [address] | | | | | [address] | [phone] | | | | | [phone] | | | +--------+ + + + [...] documented as of this encounter Miscellaneous Notes Telephone Encounter - Jody Lebron FNP - 03/24/2019 4:26 PM PDTContacted by his c are facility , that his weight increased and having more shortness of breath , and weight no w 150 lbs, and anything over 148 lbs problems for him. Increased torsemide to 15 mg daily until he sees me ion 03/29/2019 documented in this encounter Plan of Treatment +--------+---------+ + + + | Date | Type | Specialty | Care Team | Description | +--------+---------+ + + + | 06/22/ | Office | Cardiology | Jody Lebron | | | 2020 | Visit | | [address] | | | | | | [address] | | | | | | [place] [address] | | | | | | [phone] | | | | | | | | +--------+---------+ + + + documented as of this encounter Visit Diagnoses + + | Diagnosis | + + | Chronic diastolic heart failure (HCC) - Primary Chronic diastolic heart failure | + + documented in this encounter"
--- OUTSIDE RECORDS SUMMARY | ~2020-02-22 | XMS | Encounter Summary ---
Demographics + + + | Address | [address] | | | [place] [address] | + + + | Home Phone | | + + + | Preferred Language | Unknown | + + + | Marital Status | | + + + | Gnosticism Affiliation | 1077 | + + + | Race | White | + + + | Ethnic Group | Not or | + + + Author + + + | Author | [facility] | | | and [place] | + + + | Organization | [facility] | | | and [...] ECON | Unknown | | | in [facility]) | | | | + + +---------+ + Care Team Providers + +------+ + | Care Election Judge Name | Role | Phone | + +------+ + PCP | Unavailable | + +------+ + Encounter Details +--------+ + + + + | Date | Type | Department | Care Team | Description | +--------+ + + + + | 12/25/ | Hospital | [facility] | Conversion | Pain | | 2014 | Encounter | [address] | Transaction, | | | | | [address] | Provider Unknown | | | | | [place], [place] | [phone] | | | | | [address] | | | | | | [phone] | | | +--------+ + + + [...] [address] | | | | | | [place] [address] | | | | | | [phone] | | | | | | | [...]
--- OUTSIDE RECORDS SUMMARY | ~2020-02-22 | XMS | Encounter Summary ---
Demographics + + + | Address | [address] | | | [place] [address] | + + + | Home Phone | | + + + | Preferred Language | Unknown | + + + | Marital Status | | + + + | Denominational Affiliation | 1077 | + + + | Race | White | + + + | Ethnic Group | Not or | + + + Author + + + | Author | [facility] | | | and [place] | + + + | Organization | [facility] | | [...] ECON | Unknown | | | in [facility]) | | | | + + +---------+ + Care Team Providers + +------+ + | Care Resident Buyer Name | Role | Phone | + +------+ + PCP | Unavailable | + +------+ + Encounter Details +--------+ + + + + | Date | Type | Department | Care Team | Description | +--------+ + + + + | 09/08/ | Hospital | [facility] | Conversion | Diagnosis unknown | | 2018 | Encounter | [address] | Transaction, | | | | | [address] | Provider Unknown | | | | | [place], [place] | | | | | | [address] | (Fax) | | | | | [phone] | | | +--------+ + + + [...] [address] | | | | | | [place] [address] | | | | | | [phone] | | | | | | | | +--------+---------+ + + + documented as of this encounter Procedures + +--------+ + + + | Procedure Name | Priori | Date/Time | Associated Diagnosis | Comments | | | ty | | | | + +--------+ + + + | XR CHEST 2 VIEWS | Routin | 12/01/2006 | | Results for this | | | e | 5:11 PM | | procedure are in the | | | | PDT | | results section. | + +--------+ + + + documented in this encounter Results XR Chest 2 Vws (12/01/2006 5:11 PM PDT) + + | Specimen | [...]
--- OUTSIDE RECORDS SUMMARY | ~2020-02-22 | XMS | Encounter Summary ---
Demographics + + + | Address | [address] | | | [place] [address] | + + + | Home Phone | | + + + | Preferred Language | Unknown | + + + | Marital Status | | + + + | Bahai Affiliation | 1077 | + + + [...] ECON | Unknown | | | in [facility]) | | | | + + +---------+ + Care Team Providers + +------+ + | Care Beach Expert Name | Role | Phone | + +------+ + PCP | Unavailable | + +------+ + Encounter Details +--------+ + + + + | Date | Type | Department | Care Team | Description | +--------+ + + + + | 10/23/ | Orders Only | [facility] | Enzo Knox, | | | 2017 | | [address] | [address] | | | | | [place], [place] | [place] [address] | | | | | [address] | [phone] | | | | | [phone] | | | +--------+ + + + [...] [address] | | | | | | [place] [address] | | | | | | [phone] | | | | | | | [...]
--- OUTSIDE RECORDS SUMMARY | ~2020-02-22 | XMS | Encounter Summary ---
Demographics + + + | Address | [address] | | | [place] [address] | + + + | Home Phone | | + + + | Preferred Language | Unknown | + + + | Marital Status | | + + + | Adventism Affiliation | 1077 | + + + | Race | White | + + + | Ethnic Group | Not or | + + + Author + + + | Author | [facility] | | | and [place] | + + + | Organization | [facility] | | | [...] ECON | Unknown | | | in [facility]) | | | | + + +---------+ + Care Team Providers + +------+ + | Care Satellite Communications Engineer Name | Role | Phone | + +------+ + PCP | Unavailable | + +------+ + Encounter Details +--------+ + + + + | Date | Type | Department | Care Team | Description | +--------+ + + + + | 12/01/ | Hospital | [facility] | Qiana, | AMI NOS, Unspecified | | 2006 - | Encounter | [facility] | MD Annalee | ([facility]) | | | | CARE FLOOR [address] | [address] [place] | | | 12/03/ | | [address] | [address] [place], [place] | | | 2006 | | [place], [place] | [address] | | | | | [address] | [phone] | | | | | [phone] | | | +--------+ + + + [...] [address] | | | | | | [place] [address] | | | | | | [phone] | | | | | | | | +--------+---------+ + + + documented as of this encounter Visit Diagnoses + + | Diagnosis | + + | Acute myocardial infarction, unspecified site, episode of care unspecified | + + documented in this encounter"
--- OUTSIDE RECORDS SUMMARY | ~2020-02-22 | XMS | Encounter Summary ---
Demographics + + + | Address | [address] | | | [place] [address] | + + + | Home Phone | | + + + | Preferred Language | Unknown | + + + | Marital Status | | + + + | Zoroastrian Affiliation | 1077 | + + + | Race | White | + + + | Ethnic Group | Not or | + + + Author + + + | Author | [facility] | | | and [place] | + + + | Organization | [facility] | | | [...] ECON | Unknown | | | in [facility]) | | | | + + +---------+ + Care Team Providers + +------+ + | Care Field Foreman Name | Role | Phone | + +------+ + PCP | Unavailable | + +------+ + Encounter Details +--------+ + + + + | Date | Type | Department | Care Team | Description | +--------+ + + + + | 11/14/ | Hospital | [facility] | Harmony Byrne | | | 2018 - | Encounter | [facility] | MD Christofer [address] | | | | | INPATIENT | Dr Garcia | | | 12/02/ | | REHABILITATION [address] | [place], [place] | | | [address] | [address] | [address] | | | | | [place], [place] | [phone] | | | | | [address] | | | | | | [phone] | | | +--------+ + + + [...] Date of Service: 12/02/17 0945 Status: Signed Starcher And Tenter Range Feeder: Wing Micah Jain MD (Physician) [facility] Service: Physical Medicine & Rehab Discharge [...] Pt says that he sees Dr Knox, recovery collector, and Dr Wei, disability liaison officer. His medicatio ns were changed and his Lasix was increased but he stopped all Lasix a few days before admis kelin. He also fell 3 - 4 days before admission. He has Chronic Back pain but the pain marilyn me increasingly worse. He denies leg weakness or numbness. His edema and dyspnea also in creased so he came to [facility]. He was admitted and aggressively diuresed. [...] Physical Exam HEENT: No Neck Lymph Nodes. [place]. . RESP: Pt speaks in short sentences [...] CN 2 - 12 grossly normal except [place]. Reflexes symmetric. Sens ations of light touch and proprioception intact in all 4 extremities. DATA PLAN the patient will be discharge home with home health services. Disposition: Home Condition: Good Code Status: Prior No discharge procedures on file. Follow up: [facility] [address] [facility] [id number] Follow up A referral was made to [facility] for Physical and occupational therapy, bat h aid and a RN for medical management. Please call them within 24/48 hrs after your initial appointment with Dr. Jones so they can open services. Dr. Nalini Jones MD [facility] [address] [place] [address] Follow up You have a new primary care doctor appointment scheduled with Dr. Jones on December 5t h at 1:00 p.m.. Enzo Knox MD [address] [place] [address] Follow up You have a scheduled appointment with Dr. Knox on December 02 at 10:15.. [facility] [address] [facility] [address] Follow up They will call you on [...] Your Medications These medications were sent to [facility] - [address], [facility] [address] umeclidinium-vilanterol 62.5-25 MCG/INH inhaler You can get [...] Date of Service: 12/02/17 1016 Status: Signed Starcher And Tenter Range Feeder: Marisol Tyler RN (Registered Nurse) Provided discharge education to patient and son. Provided them with AVS and prescriptions. Told them to call if further questions arise. No further questions at this time. onver kelin Sun, Provider Unknown - 12/02/2017 9:45 AM PDT Case Management by RONNELL Rangel at 12/02/17 0945 Author: RONNELL Rangel Service: (none) Author Type: Fishing Vessel Mate Filed: 12/03/17 1156 Date of Service: 12/02/17944 Status: Signed Starcher And Tenter Range Feeder: RONNELL Rangel (Fishing Vessel Mate) DC Summary faxed to [facility] onver kelin Transaction, Provider Unknown - 12/02/2017 9:45 AM PDT Case Management by RONNELL Rangel at 12/02/17 0945 Author: RONNELL Rangel Service: (none) Author Type: Fishing Vessel Mate Filed: 12/03/17 1202 Date of Service: 12/02/17944 Status: Addendum Starcher And Tenter Range Feeder: RONNELL Rangel (Fishing Vessel Mate) Related Notes: Original Note by RONNELL Rangel (Fishing Vessel Mate) filed at 12/03/17 1141 [facility] msg that [facility] is not able [...] Jones to immediately make a referral to [facility] in [facility] for his appt at 1400 that same day. Informed son that pt needed to go to [facility] sometime tomorrow for an INR lab draw and that Dr. Jain will monitor his INR until marty ent gets established with a new PCP on December 09. Faxed order for INR lab draw to [facility] in [place] ([phone]) and results to be called to Dr. Jain. Faxed DC Summary to [facility] and to Dr. Joens's office. onver kelin Transaction, Provider Unknown - 12/01/2017 3:21 PM PDT Therapy Progress Note by GURWINDER Dahl at 12/01/17 1521 Author: GURWINDER Dahl Service: (none) Author Type: Occupational Therapist Filed: 12/01/17 1523 Date of Service: 12/01/171520 Status: Signed Starcher And Tenter Range Feeder: GURWINDER Dahl (Occupational Therapist) OCCUPATIONAL THERAPY TREATMENT NOTE OT Received On: 12/01/17 Reason for Treatment: Deconditioning Requires OT Follow Up: No Assistance Required: 1 person School Speech Language Pathologist Needed: No Family/Caregiver Present: No Requires OT [...] bed. O2 sats checked after returning to [facility] room on 3L O2, at 97%. Returned [...] Body Dressing Clothing Items Worn This Session: loom changeover operator shirt Upper Body Dressing Final Score: Supervision/Set-up Lower Body Dressing Clothing Items Worn This Session: Pants, Socks % Dressing Tasks Completed : 20 % Lower Body Dressing Final Score: Total Assistance Toileting Is this a continent episode?: Yes-continue scoring Patient completed % of overall toileting task: 100 Percent Toileting Final Score: Modified [place] Bladder Management Bladder Management: Level of Assistance: Complete [place] Bowel Management Bowel Management: Level of Assistance: Complete [place] Transfer Bed/Chair Wheelchair Transfers: Bed, Chair, Wheelchair Final Score: Minimal Assistance Toilet Transfer Transfers: Toilet Final Score: Supervision/Set-up Tub/Shower Transfer Transfers: Tub, Shower Final Score: Supervision/Set-up Comprehension Comprehension Final Score: 6 - Modified independence Expression Expression Final Score : Modified independence Social Interaction Social Interaction Final Score: Modified [place] Problem Solving Problem Solving Final Score: Modified [place] Memory Memory Final Score: Complete [place] Barriers to d/c at this time include: [...] Notes by Blayne Brown RRT at 12/01/17 4312 Author: Balyne Brown RRT Service: (none) Author Type: Registered Respiratory Therapist Filed: 12/01/17 1430 Date of Service: 12/01/171435 Status: Signed Starcher And Tenter Range Feeder: Blayne Brown RRT (Registered Respiratory Therapist) [facility] Department of Respiratory Fpc Oxygen Evaluation (Evaluation is valid for 48 [...] 1528 Date of Service: 12/01/171414 Status: Signed Starcher And Tenter Range Feeder: Josy Kwok PT (Physical Therapist) PHYSICAL THERAPY [...] Wheelchair Type: Lightweight Wheelchair Surface: Linoleum, Carpet, [place] Wheelchair Management: Brake Right, Brake Left Activity [...] [] Refused Raymundo De Los Santos MS CCC-GRAB SETTER - 12/01/2017 10:30 AM PDT Progress Notes by Veena Ayala MS CCC-GRAB SETTER at 12/01/17 1030 Author: Veena Ayala MS CCC-GRAB SETTER Service: (none) Author Type: Speech and Language Patho logist Filed: 12/01/17 1113 Date of Service: 12/01/17 1030 Status: Signed Starcher And Tenter Range Feeder: Veena Ayala MS CCC-GRAB SETTER (Speech and Language Pathologist) SPEECH - LANGUAGE - COGNITION GRAB SETTER Received On: 12/01/17 Requires GRAB SETTER Follow Up: Yes Treatment Plan: Continue with current plan Treatment Frequency: 4-6 x/week Session type: Treatment Additional Pertinent History: Pt provided his personal hx wihich is corroborated by previou s ST notes. Pt was aware his phone had been done charging and asked for the reel tender to be di sconnected and placed in the night table top drawer. Initially he could not find his phone, but discovered it under some papers on his tray table. We used the memory binder to review r ecording a voice message via text. Family/Caregiver Present: No Auditory Reading Expression Pragmatics Speech/voice Passy-Kelvin Passy-Wolcott Valve Trials Written Expression Cognition Problem Solving [...] of learning [] Refused Veena Ayala MS CCC-GRAB SETTER onversion Tra nsaction, Provider Unknown - 12/01/2017 10:00 AM PDTFormatting of this note might be differe nt from the original. 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) Assessment: stable Plan: on nasal oxygen [...] 1415 Date of Service: 11/30/171414 Status: Signed Starcher And Tenter Range Feeder: Enzo Chan (Recreational Therapist) 11/30/17 1413 Attendance [...] Date of Service: 11/30/17 0759 Status: Signed Starcher And Tenter Range Feeder: Wing Micah Jain MD (Physician) [facility] Service: Physical Medicine & Rehab Progress [...] Note by Josy Kwok PT at 11/29/17 8063 Author: Josy Kwok PT Service: (none) Author Type: Physical Therapist Filed: 11/29/17 1222 Date of Service: 11/29/17 1133 Status: Signed Starcher And Tenter Range Feeder: Josy Kwok PT (Physical Therapist) PHYSICAL THERAPY [...] Date of Service: 11/29/17 1100 Status: Signed Starcher And Tenter Range Feeder: EMMA Mead (Graffiti Cleaner) OCCUPATIONAL THERAPY TREATMENT NOTE OT Received On: 11/29/17 Reason for Treatment: Deconditioning Requires OT Follow Up: Yes Assistance Required: 1 person School Speech Language Pathologist Needed: No Family/Caregiver Present: No Recommendation: (continue [...] placement of cup into top shelf of pipe washer providing for appropriate reaching distance and [...] Social Interaction Social Interaction Final Score: Modified [place] Problem Solving Problem Solving Final Score: Moderate [...] goals set by OTR/L. ovarTrinity hoffmann MA, CCC-GRAB SETTER - 11/29/2017 10:29 AM PDTFormatting of this note might be differ ent from the original. Therapy Progress Note by Trinity Arzola MA CCC-GRAB SETTER at 11/29/17 1029 Author: Trinity Arzola MA CCC-GRAB SETTER Service: (none) Author Type: Speech and Language Pathologist Filed: 11/29/17 1226 Date of Service: 11/29/17 1029 Status: Signed Starcher And Tenter Range Feeder: Trinity Arzola MA CCC-GRAB SETTER (Speech and Language Pathologist) SPEECH - LANGUAGE - COGNITION GRAB SETTER Received On: 11/29/17 Requires GRAB SETTER Follow Up: Yes Treatment Plan: Continue with [...] of learning [] Refused Trinity Arzola MA CCC-GRAB SETTER Wing Micah Lopes MD - 11/29/2017 7:08 AM PDTFormatting of this note might be different from the orig inal. Progress Notes by Wing Micah Jain MD at 11/29/17707 Author: Wing Micah Jain MD Service: (none) Author Type: Physician Filed: 11/29/17708 Date of Service: 11/29/17707 Status: Signed Starcher And Tenter Range Feeder: Wing Micah Jain MD (Physician) [facility] Service: Physical Medicine & Rehab Progress [...] stable Plan: pain management Chronic atrial fibrillation (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) (10/21/2017) Assessment: stable Plan: on oxygen Hypertension [...] Type: Occupational Therapy Meir davis Filed: 11/28/17 1637 Date of Service: 11/28/17 1631 Status: Signed Starcher And Tenter Range Feeder: EMMA Joiner (Graffiti Cleaner) 11/28/17 7175 OT Last Visit OT Received On 11/28/17 Reason for Treatment Deconditioning Requires OT Follow Up Yes Assistance Required 1 person School Speech Language Pathologist Needed No Family/Caregiver Present No Precautions Spinal [...] Raised toilet seat 11/28/17 1345 Comprehension (in [place] language) 6 - Patient understands complex/abstract information WITH? extra time 5 - Patient understands basic information WITH? cues/instruction Comprehension Final Score 5 - Supervision/set-up Expression (in [place] language) 6 - Patient expresses complex/abstract information [...] by Wing Micah Jain MD at 11/28/17 6997 Author: Wing Micah Jain MD Service: (none) Author Type: Physician Filed: 11/28/17 3561 Date of Service: 11/28/171338 Status: Signed Starcher And Tenter Range Feeder: Wing Micah Jain MD (Physician) [facility] Service: Physical Medicine & Rehab Progress [...] stable Plan: pain management Chronic atrial fibrillation (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) (10/21/2017) Assessment: stable Plan: on oxygen Hypertension [...] Note by Josy Kwok PT at 11/28/17 0785 Author: Josy Kwok PT Service: (none) Author Type: Physical Therapist Filed: 11/28/17 0644 Date of Service: 11/28/177 Status: Signed Starcher And Tenter Range Feeder: Josy Kwok PT (Physical Therapist) PHYSICAL THERAPY [...] Author: RONNELL Rangel Service: (none) Author Type: Fishing Vessel Mate Filed: 11/28/17 1233 Date of Service: 11/28/17 1231 Status: Signed Starcher And Tenter Range Feeder: RONNELL Rangel (Fishing Vessel Mate) A referral/order was sent to [facility] for mgmt of INR. Requested [facility] call son with appt time on Friday. onver kelin Transaction, Provider Unknown - 11/28/2017 10:48 AM PDT Therapy Progress Note by EVANGELIST Braun at 11/28/17 1045 Author: EVANGELIST Braun Service: (none) Author Type: Physical Therapist Filed: 11/28/17 9597 Date of Service: 11/28/17 1048 Status: Attested Starcher And Tenter Range Feeder: EVANGELIST Braun (Physical Therapist) Cosigner: Josy Kwok, [...] PT Only?: No Assistance Required: 1 person School Speech Language Pathologist Needed: No Recommendations: IRF Plan Treatment/Interventions: Continue per Primary PT POC Progress: Progressing toward goals Summary Comments: Pt upright in w/c when PT arrived, GUN PERFORATOR LOADER and son present. Pt reports 7/10 pain, SELAM Vera notified and administered meds. Session focused on family education and proper mobility techniques in the home. Assesed fit of pt new w/c. [facility] educated on pt limited endurance and need for cues to pace self during activites with frequent rest brakes. [facility] ed on use of w/c brakes, armrests and footplates. [facility] aware of spinal precautions and proper technique of ca r transfers. [facility] ed on w/c and walker placement in [...] Type: Occupational Therapy Meir davis Filed: 11/28/17 3645 Date of Service: 11/28/17 1015 Status: Signed Starcher And Tenter Range Feeder: EMMA Mead (Graffiti Cleaner) OCCUPATIONAL THERAPY TREATMENT NOTE OT Received On: 11/28/17 Reason for Treatment: Deconditioning Requires OT Follow Up: Yes Assistance Required: 1 person School Speech Language Pathologist Needed: No Family/Caregiver Present: Yes Recommendation: (continue [...] goals set by OTR/L. ovarTrinity hoffmann MA, CCC-GRAB SETTER - 11/28/2017 9:30 AM PDTFormatting of this note might be differ ent from the original. Therapy Progress Note by Trinity Arzola MA CCC-GRAB SETTER at 11/28/17929 Author: Trinity Arzola MA CCC-GRAB SETTER Service: (none) Author Type: Speech and Language Pathologist Filed: 11/28/17 1223 Date of Service: 11/28/17929 Status: Signed Starcher And Tenter Range Feeder: Trinity Arzola MA CCC-GRAB SETTER (Speech and Language Pathologist) SPEECH - LANGUAGE - COGNITION GRAB SETTER Received On: 11/28/17 Requires GRAB SETTER Follow Up: Yes Treatment Plan: Continue with [...] of learning [] Refused Trinity Arzola MA CCC-GRAB SETTER onver kelin Transaction, Provider Unknown - 11/27/2017 2:30 PM PDT Therapy Progress Note by EVANGELIST Braun at 11/27/17 1430 Author: EVANGELIST Braun Service: (none) Author Type: Physical Therapist Filed: 11/27/17 3507 Date of Service: 11/27/171429 Status: Attested Starcher And Tenter Range Feeder: EVANGELIST Braun (Physical Therapist) Cosigner: Josy Kwok PT at 1543 Attestation signed by Josy Kwok PT at 11/27/171543 Student therapist educationally participated in therapy session under the supervision of brent vazquez licensed therapist. This note was created by the student therapist and co-signed by the [facility] therapist. Information in this note may have [...] PT Only?: No Assistance Required: 1 person School Speech Language Pathologist Needed: No Recommendations: IRF Plan Treatment/Interventions: Continue [...] with B railing Standardized Test Five Time Zwh-lo-Zpixt: 44 sec Activity Tolerance: Patient limited by [...] Note by Josy Kwok PT at 11/27/17 4160 Author: Josy Kwok PT Service: (none) Author Type: Physical Therapist Filed: 11/27/17 5125 Date of Service: 11/27/17 0420 Status: Signed Starcher And Tenter Range Feeder: Josy Kwok PT (Physical Therapist) PHYSICAL THERAPY [...] Author: RONNELL Rangel Service: (none) Author Type: Fishing Vessel Mate Filed: 11/27/17 1208 Date of Service: 11/27/171206 Status: Signed Starcher And Tenter Range Feeder: RNONELL Rangel (Fishing Vessel Mate) Left ms for [facility] to call back for INR lab draw and monitoring. Aw ait call back. onver kelin Transaction, Provider Unknown - 11/27/2017 11:27 AM PDT Case Management by RONNELL Rangel at 11/27/17 1127 Author: RONNELL Rangel Service: (none) Author Type: Fishing Vessel Mate Filed: 11/27/17 1130 Date of Service: 11/27/171126 Status: Signed Starcher And Tenter Range Feeder: RONNELL Rangel (Fishing Vessel Mate) Scheduled new PCP appointment with Dr. Nalini Jones at [facility] in [place] for FridayDecember 09 at 1300 (clinical faxed to Dr. Jones). Pt has a cardiology follow-up appointment with Dr. Knox's office on December 02 at 1015. Informed pt's son so he can be sure a nd arrive early enough for dc and then transport to [facility]. Referral sent to [facility] for physical and occupational therapy, bath aid and a RN. Left [facility] for Dr. Abilio Sanabria's nurse to see if their office can monitor pt's INR. Mariajose Bajwa, OTR/L - 11/27/2017 10:15 AM PDTFormatting of this note might be different from th e original. Therapy Progress Note by GURWINDER Mortensen at 11/27/17 1015 Author: GURWINDER Mortensen Service: (none) Author Type: Occupational Therapist Filed: 11/27/17 2713 Date of Service: 11/27/17 1015 Status: Signed Starcher And Tenter Range Feeder: GURWINDER Mortensen (Occupational Therapist) OCCUPATIONAL THERAPY TREATMENT NOTE OT Received On: 11/27/17 Reason for Treatment: Deconditioning (T12 compression fx) Requires OT Follow Up: Yes Assistance Required: 1 person School Speech Language Pathologist Needed: No Family/Caregiver Present: No Recommendation: Home [...] Wash/rinse/dry hands, Wash/rinse/dry f jeannette, Oral care, [place] hair Patient completed % of overall grooming tasks: 100 Percent Grooming Final Score: Complete [place] Bathing Which bathing tasks were completed during this session?: Arm right, Arm left, Chest, Abdome n, Perineal area front, Buttocks, Leg upper right, Leg upper left, Leg lower left and foot, Leg lower right and foot Patient completed % of overall bathing task: 70 Percent Bathing Final Score: Moderate Assistance Upper Body Dressing Clothing Items Worn This Session: loom changeover operator shirt Upper Body Dressing Final Score: Complete [place] Lower Body Dressing Clothing Items Worn This Session: Pants, Socks % Dressing Tasks Completed : 100 % Lower Body Dressing Final Score: Modified [place] Toileting Is this a continent episode?: Yes-continue scoring (Pt stood to urinate, however did not vo id) Patient completed % of overall toileting task: 100 Percent Toileting Final Score: Complete [place] Bladder Management Bladder Management: Level of Assistance: Set-up Transfer Bed/Chair Wheelchair Transfers: Bed, Chair, Wheelchair Final Score: Supervision/Set-up Toilet Transfer Transfers: Toilet Final Score: Activity does not occur Tub/Shower Transfer Transfers: Tub, Shower Final Score: Modified [place] Barriers to d/c at this time include: [...] of learning [] Refused Meche Robin MS CCC-GRAB SETTER - 11/27/2017 9:45 AM PDTFormatting of this note might be different from the shaneka reyes. Therapy Progress Note by Meche Batista MS CCC-GRAB SETTER at 11/27/17 0948 Author: Meche Batista MS CCC-GRAB SETTER Service: (none) Author Type: Speech and Language Pa thologist Filed: 11/27/17 1016 Date of Service: 11/27/1762 Status: Signed Starcher And Tenter Range Feeder: Meche Batista MS CCC-GRAB SETTER (Speech and Language Pathologist) SPEECH - LANGUAGE - COGNITION GRAB SETTER Received On: 11/27/17 Requires GRAB SETTER Follow Up: Yes Treatment Plan: Cognitive evaluation/treatment [...] Author: RONNELL Rangel Service: (none) Author Type: Fishing Vessel Mate Filed: 11/27/17925 Date of Service: 11/27/17925 Status: Signed Starcher And Tenter Range Feeder: RONNELL Rangel (Fishing Vessel Mate) Faxed order for MWC and FWW to [facility]. Wing Micah Lopes MD - 11/27/2017 6:45 AM PDTFormatting of this note might be different from the orig inal. Progress Notes by Wing Micah Jain MD at 11/27/17644 Author: Wing Micah Jain MD Service: (none) Author Type: Physician Filed: 11/27/17645 Date of Service: 11/27/17644 Status: Signed Starcher And Tenter Range Feeder: Wing Micah Jain MD (Physician) [facility] Service: Physical Medicine & Rehab Progress [...] stable Plan: pain management Chronic atrial fibrillation (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) (10/21/2017) Assessment: stable Plan: on oxygen Hypertension [...] 11/26/171849 Date of Service: 11/26/171849 Status: Signed Starcher And Tenter Range Feeder: Enzo Chan (Recreational Therapist) 11/26/171846 Attendance Activity Leisure planning (future activities) Therapeutic Recreation Social Skills Initiates conversation or social interaction Physical Functioning Skills Increase tolerance Cognitive Function (good) Leisure Participation Active participation Satisfied with Leisure Interest Yes Time Spent With Patient Minutes 15 Requires REC Follow Up Yes (continue history journal, possible Richard Pauer - 3P project, cards) onver kelin Transaction, Provider Unknown - 11/26/2017 4:40 PM PDT Case Management by RONNELL Rangel at 11/26/17 1640 Author: RONNELL Rangel Service: (none) Author Type: Fishing Vessel Mate Filed: 11/26/17 1641 Date of Service: 11/26/17 1640 Status: Signed Starcher And Tenter Range Feeder: RONNELL Rangel (Fishing Vessel Mate) Scheduled family trng with pt's son for Friday at 0930. onver kelin Transaction, Provider Unknown - 11/26/2017 4:34 PM PDT Case Management by RONNELL Rangel at 11/26/17 1634 Author: RONNELL Rangel Service: (none) Author Type: Fishing Vessel Mate Filed: 11/26/17 1635 Date of Service: 11/26/17 1634 Status: Signed Starcher And Tenter Range Feeder: RONNELL Rangel (Fishing Vessel Mate) The interdisciplinary team rounded with the patient [...] (none) Author Type: Physical Therapist Filed: 11/26/17 3613 Date of Service: 11/26/17 1500 Status: Attested Starcher And Tenter Range Feeder: EVANGELIST Braun (Physical Therapist) Cosigner: Josy Kwok PT at 155 Attestation signed by Josy Kwok PT at 11/26/17 155 Student therapist educationally participated in therapy session under the supervision of brent vazquez licensed therapist. This note was created by the student therapist and co-signed by the [facility] therapist. Information in this note may have [...] limited by?: Patient's ability Stair Management Technique: Uwza-xomx-kysl, Step-to, Rails bilateral, Rail on right ascendi [...] Date of Service: 11/26/17 1300 Status: Signed Starcher And Tenter Range Feeder: GURWINDER Mortensen (Occupational Therapist) OCCUPATIONAL THERAPY TREATMENT NOTE OT Received On: 11/26/17 Reason for Treatment: Deconditioning (T12 compression fx) Requires OT Follow Up: Yes Assistance Required: 1 person School Speech Language Pathologist Needed: No Family/Caregiver Present: No Recommendation: Home [...] left supine in bed with phone to [facility] to order dinner, no other needs [...] it below. If the patient is over intermediate to a standing position when 30 seconds [...] 04-20 80-84 03-20 85-90 02-16 90-95 10-15 [facility] Occupational Therapy Department Home Safety Assessment 1. What is the month? _may 2. What is the day? _wed 3. What is the year? _2018 4. If there is a storm at night and the electricity went off, what would you do? (get a fla shlight, light a candle, go to a friends house for the night, call the paid search manager) light candle s 5. What would you do if it was still off the next day? (call the [employer]) call power co 6. What type of heat source do you have in your home? (electricity, gas, oil, wood, other) electricity 7. If it is snowing outside and your heat wasn t working, what would you do? (put on warm clothing, stay with a friend, call the [employer]gas company) put on warm clothing ____ 8. [...] you do first? (turn off the breaker, route service manager, call fire department to find out) turn off dong ker 12. What should you do next? (pull plug if breaker is off, route service manager, etc) pull plug out 13. Would you [...] have a grease fire in your frying yougn? (no if the fire is con tained in young, if uncontrolled, then yes) yes 17. What would you do to put out a grease fire? (place a lid over it, sprinkle baking soda or salt on it) smother it 18. 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 Wc propulsion mod I from [...] Progress Note by EVANGELIST Braun at 11/26/17 1040 Author: EVANGELIST Braun Service: (none) Author Type: Physical Therapist Filed: 11/26/171156 Date of Service: 11/26/171044 Status: Attested Starcher And Tenter Range Feeder: EVANGELIST Braun (Physical Therapist) Cosigner: Josy Kwok [...] PT Only?: No Assistance Required: 1 person School Speech Language Pathologist Needed: No Recommendations: IRF Plan Treatment/Interventions: Continue per Primary PT POC Progress: Progressing toward goals Summary Comments: Pt received supine in bed at start of session, agreeable to therapy. Pt reports n o pain. Session focused on FWW management in kitchen with use of quill fixer. Pt completed task, requiring verbal cues for [...] Progress Note by GURWINDER Mortensen at 11/25/17 1165 Author: GURWINDER Mortensen Service: (none) Author Type: Occupational Therapist Filed: 11/25/17 5597 Date of Service: 11/25/174 Status: Signed Starcher And Tenter Range Feeder: GURWINDER Mortensen (Occupational Therapist) OCCUPATIONAL THERAPY TREATMENT NOTE OT Received On: 11/25/17 Reason for Treatment: Deconditioning (T12 compression fx) Requires OT Follow Up: Yes Assistance Required: 1 person School Speech Language Pathologist Needed: No Family/Caregiver Present: No Recommendation: (cont [...] Case Management by RONNELL Rangel at 11/25/17 6405 Author: RONNELL Rangel Service: (none) Author Type: Fishing Vessel Mate Filed: 11/25/17 2277 Date of Service: 11/25/17 1303 Status: Signed Starcher And Tenter Range Feeder: Dashawn Lora, NURSE OUTREACH CASE MANAGER (Fishing Vessel Mate) Called pt's son and JOHNNY to inform them of change in Team Conference mtg. They are advocati ng for addtl time on rehab. Pt also expressed feeling concerned about being ready to dc on Friday. Son and JOHNNY won't make it over for Team tomorrow as they have DME being delivered i n the afternoon. They asked NURSE OUTREACH CASE MANAGER to call and give an update via phone after Team tomorrow. onver kelin Transaction, Provider Unknown - 11/25/2017 11:15 AM PDT Therapy Progress Note by Dulce Sanders PT at 11/25/17 1764 Author: Dulce Sanders PT Service: (none) Author Type: Physical Therapist Filed: 11/25/17 9527 Date of Service: 11/25/171114 Status: Signed Starcher And Tenter Range Feeder: Dulce Sanders PT (Physical Therapist) PHYSICAL THERAPY TREATMENT NOTE PT Received On: 11/25/17 Reason for Treatment: Other (comment) (L1 compression fx) Requires PT Follow Up: Yes Follow up PT Only?: No Focus for Next Treatment: Stair Training, Family Training/Education (see comment), Bed Mobi lity Technique, Transfer Technique Assistance Required: 1 person School Speech Language Pathologist Needed: No Recommendations: IRF Plan Treatment/Interventions: Continue [...] Date of Service: 11/25/17 1015 Status: Signed Starcher And Tenter Range Feeder: GURWINDER Mortensen (Occupational Therapist) OCCUPATIONAL THERAPY TREATMENT NOTE OT Received On: 11/25/17 Reason for Treatment: Deconditioning (t12 compression fx) Requires OT Follow Up: Yes OT Eval/Reassessment Date: 11/25/17 Assistance Required: 1 person School Speech Language Pathologist Needed: No Family/Caregiver Present: No Recommendation: (cont IPR) Equipment Recommended: Adviser Sales, Sock aid, Other (comment) Requires OT Follow [...] tasks completed during this session?: Oral care, [place] hair, Wash/rinse/dry face, Shave face Patient completed % of overall grooming tasks: 100 Percent Grooming Final Score: Complete [place] Upper Body Dressing Clothing Items Worn This Session: loom changeover operator shirt Upper Body Dressing Final Score: Supervision/Set-up Lower Body Dressing Clothing Items Worn This Session: Pants, Socks % Dressing Tasks Completed : 60 % Lower Body Dressing Final Score: Moderate Assistance Transfer Bed/Chair Wheelchair Transfers: Bed, Chair, Wheelchair Final Score: Supervision/Set-up Comprehension Comprehension Final Score: 5 - Supervision/set-up Expression Expression Final Score : Complete independence Social Interaction Social Interaction Final Score: Complete [place] Problem Solving Problem Solving Final Score: Supervision/Set-up [...] Therapy Progress Note by SARAH NewellS at 11/25/1761 Author: SARAH NewellS Service: (none) Author Type: Speech Therapist Filed: 11/25/171118 Date of Service: 11/25/17944 Status: Attested Starcher And Tenter Range Feeder: SARAH NewellS (Speech Therapist) Cosigner: MS CHAYITO AlvarezS LP at 11/25/171138 Attestation signed by Meche Batista MS CCC-GRAB SETTER at 11/25/171138 Student therapist educationally participated in therapy session under the supervision of brent vazquez licensed therapist. This note was created by the student therapist and co-signed by the [facility] therapist. Information in this note may have been obtained from flowsheet charting. T his note is co-signed at the treatment plan/progress note level. The patient approved of e student's role in care. SPEECH - LANGUAGE - COGNITION GRAB SETTER Received On: 11/25/17 Requires GRAB SETTER Follow Up: Yes Treatment Plan: Cognitive evaluation/treatment [...] are progressing unless otherwise indicated. Memory/Recall Goals Singing Messenger Goals: Increased recall Pt will demonstrate increased [...] evidence of learning [] Refused Savita Sandoval, GRAB SETTER-S 11/25/2017 Wing Micah Lopes MD - 11/25/2017 7:15 AM PDTFormatting of this note might be different from the orig inal. Progress Notes by Wing Micah Jain MD at 11/25/17714 Author: Wing Micah Jain MD Service: (none) Author Type: Physician Filed: 11/25/17715 Date of Service: 11/25/17714 Status: Signed Starcher And Tenter Range Feeder: Wing Micah Jain MD (Physician) [facility] Service: Physical Medicine & Rehab Progress [...] stable Plan: pain management Chronic atrial fibrillation (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) (10/21/2017) Assessment: stable Plan: on oxygen Hypertension [...] Note by Carisa Garner PT at 11/24/17 8910 Author: Carisa Garner PT Service: (none) Author Type: Physical Therapist Filed: 11/24/17 1566 Date of Service: 11/24/171534 Status: Signed Starcher And Tenter Range Feeder: Carias Garner PT (Physical Therapist) PHYSICAL THERAPY TREATMENT NOTE PT Received On: 11/24/17 Reason for Treatment: Other (comment) (s/p fall with compression fx, SOB with CHF ) Requires PT Follow Up: Yes Follow up PT Only?: No Assistance Required: 1 person School Speech Language Pathologist Needed: No Recommendations: IRF Plan Treatment/Interventions: Continue [...] on dc'ing to his son's home in [place] to assist w/safe indep mob and d [...] (none) Author Type: Registered Dietitian Filed: 11/24/17 142 Date of Service: 11/24/171417 Status: Addendum Starcher And Tenter Range Feeder: Gail Dave RD (Registered Dietitian) Related Notes: Original Note by Gail Dave RD (Registered Dietitian) filed at 11/24 1418 11/24/17 1349 Subjective Timepoint Admit (LOS day 10) Pt [...] Date of Service: 11/24/17 1033 Status: Signed Starcher And Tenter Range Feeder: Wing Micah Jain MD (Physician) [facility] Service: Physical Medicine & Rehab Progress Note Hospital Day: LOS: 10 days SUBJECTIVE Patient Summary: The patient is agreeable to working with GRAB SETTER. Will have repeat INR tomorrow. Targeted new [...] Type: Occupational Therapy Shauna alvarado Filed: 11/24/17 4806 Date of Service: 11/24/17 1030 Status: Signed Starcher And Tenter Range Feeder: EMMA More (Graffiti Cleaner) OCCUPATIONAL THERAPY TREATMENT NOTE OT Received On: 11/24/17 Reason for Treatment: Deconditioning, Other (comment) (t12 compression fx) Requires OT Follow Up: Yes Assistance Required: 1 person School Speech Language Pathologist Needed: No Family/Caregiver Present: No Requires OT [...] bathing techniuqes and equipment needs. Pt reporting [id number] is getting all the needed equipment. Tub [...] Note by Wilder Enrique PT at 11/24/17 3214 Author: Wilder Enrique PT Service: (none) Author Type: Physical Therapist Filed: 11/24/17 1051 Date of Service: 11/24/17944 Status: Signed Starcher And Tenter Range Feeder: Wilder Enrique PT (Physical Therapist) PHYSICAL THERAPY [...] Comments: Upon PT arrival pt sitting in [facility]. pt agreeable to therapy. Pt had spilled [...] able to propel himself down to the [facility] gym. Pt requiring verbal cu es for directions. Pt in gym vitals assessed again O2 below 88% but quickly recovered with d eep breathing. Pt able to transfer from [facility] and ambulate in [facility] gym. Vitals assessed again a nd found WNL. Pt requiring a therapeutic rest break after ambulation. Pt propelled over to / / bars where pt practiced walkign forward and backward with varying UE support. Pt propelled himself back up to his room sitting in [facility] with call light within reach. Precautions Spinal [...] Author: EMMA Jauregui Service: (none) Author Type: Process Excellence Manager ant Filed: 11/24/17 1141 Date of Service: 11/24/17929 Status: Signed Starcher And Tenter Range Feeder: EMMA Jauregui (Graffiti Cleaner) OCCUPATIONAL THERAPY TREATMENT NOTE OT Received On: 11/24/17 Reason for Treatment: Deconditioning, Other (comment) (t12 compression fx) Requires OT Follow Up: Yes Assistance Required: 1 person School Speech Language Pathologist Needed: No Family/Caregiver Present: No Recommendation: (Cont IPR) Equipment Recommended: Adviser Sales, Sock aid, Other (comment) (pt currently has all items in ro om) Requires OT Follow Up: Yes Recommendation Comments Pt would benefit from education on AE, using quill fixer and sock aide for dressing. Pt current [...] would benefit from education on AE, using quill fixer and so ck aide for dressing. Pt currently has personal AE in room. Safety Devices in Place: Yes Type of Devices: Chair alarm, Call lite in place, Wheelchair FIM Grooming Which grooming tasks completed during this session?: Oral care, [place] hair, Wash/rinse/dry face Patient completed % of overall grooming tasks: 100 Percent Grooming Final Score: Supervision/Set-up Upper Body Dressing Clothing Items Worn This Session: loom changeover operator shirt Upper Body Dressing Final Score: Supervision/Set-up [...] Date of Service: 11/24/17799 Status: Attested Addendum Starcher And Tenter Range Feeder: SARAH NewellS (Speech Therapist) Related Notes: Original Note by Savita Breazeale, GRAB SETTER-S (Speech Therapist) filed at 11/05 07/24 0909 Cosigner: Meche Batista, CCC-GRAB SETTER at 11/24/17 09 Attestation signed by Mecheqasim Batista CCC-GRAB SETTER at 11/24/17 09 Student therapist educationally participated [...] made to add treatment plan and frequency GRAB SETTER Received On: 11/24/17 Requires GRAB SETTER Follow Up: Yes Treatment Plan: Continue with [...] evidence of learning [] Refused Savita Sandoval, GRAB SETTER-S 11/24/2017 onver kelin Transaction, Provider Unknown - 11/23/2017 5:05 PM PDT Nurse Progress Note by Naina Angeles RN at 11/23/171704 Author: Naina Angeles RN Service: (none) Author Type: Registered Nurse Filed: 11/23/17 465 Date of Service: 11/23/171704 Status: Signed Starcher And Tenter Range Feeder: Naina Angeles RN (Registered Nurse) No significant [...] by Wing Micah Jain MD at 11/23/17 1306 Author: Wing Micah Jain MD Service: (none) Author Type: Physician Filed: 11/23/17 1302 Date of Service: 11/23/17 130 Status: Signed Starcher And Tenter Range Feeder: Wing Micah Jain MD (Physician) [facility] Service: Physical Medicine & Rehab Progress [...] stable Plan: pain management Chronic atrial fibrillation (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) (10/21/2017) Assessment: stable Plan: on oxygen Hypertension [...] 11/22/171957 Date of Service: 11/22/171756 Status: Signed Starcher And Tenter Range Feeder: Naina Angeles RN (Registered Nurse) No significant [...] by Wing Micah Jain MD at 11/22/17 3140 Author: Wing Micah Jain MD Service: (none) Author Type: Physician Filed: 11/22/17 9611 Date of Service: 11/22/171534 Status: Signed Starcher And Tenter Range Feeder: Wing Micah Jain MD (Physician) [facility] Service: Physical Medicine & Rehab Progress [...] Date of Service: 11/22/17 1030 Status: Signed Starcher And Tenter Range Feeder: EMMA Mead (Graffiti Cleaner) OCCUPATIONAL THERAPY TREATMENT NOTE OT Received On: 11/22/17 Reason for Treatment: Other (comment) (t12 compression fx) Requires OT Follow Up: Yes Assistance Required: 1 person School Speech Language Pathologist Needed: No Family/Caregiver Present: No Recommendation: (continue IRF) Equipment Recommended: Adviser Sales, Sock aid, Sponge long handled, Shoe horn [...] Social Interaction Social Interaction Final Score: Complete [place] Problem Solving Problem Solving Final Score: Supervision/Set-up Memory Memory Final Score: Modified [place] Barriers to d/c at this time include: [...] AM PDT Progress Notes by Dulce Branch CCC-GRAB SETTER at 11/22/17814 Author: CHAYITO GrubbsGRAB SETTER Service: (none) Author Type: Speech and Fancy Sewer ologist Filed: 11/22/17 0956 Date of Service: 11/22/17814 Status: Signed Starcher And Tenter Range Feeder: Dulce Branch CCC-GRAB SETTER (Speech and Language Pathologist) SPEECH - LANGUAGE - COGNITION GRAB SETTER Received On: 11/22/17 Requires GRAB SETTER Follow Up: Yes Treatment Plan: Continue with [...] evidence of learning [] Refused Dulce Branch CCC-GRAB SETTER onver kelin Transaction, Provider Unknown - 11/22/2017 8:00 AM PDT Therapy Progress Note by Dulce Sanders PT at 11/22/17 0800 Author: Dulce Sanders PT Service: (none) Author Type: Physical Therapist Filed: 11/22/17 4701 Date of Service: 11/22/17 08 Status: Signed Starcher And Tenter Range Feeder: Dulce Sanders PT (Physical Therapist) PHYSICAL THERAPY TREATMENT NOTE PT Received On: 11/22/17 Reason for Treatment: Other (comment) (Other (comment) (s/p fall with compression fx, SOB w ith CHF ) Requires PT Follow Up: Yes Follow up PT Only?: No Assistance Required: 1 person School Speech Language Pathologist Needed: No Recommendations: IRF Plan Treatment/Interventions: Continue [...] 11/21/171614 Date of Service: 11/21/171514 Status: Attested Starcher And Tenter Range Feeder: EVANGELIST Braun (Physical Therapist) Cosigner: Josy Kwok PT at 1615 Attestation signed by Josy Kwok PT at 11/21/171615 Student therapist educationally participated in therapy session under the supervision of brent vazquez licensed therapist. This note was created by the student therapist and co-signed by the [facility] therapist. Information in this note may have [...] (none) Author Type: Occupational Therapist Filed: 11/21/17 1542 Date of Service: 11/21/17 1430 Status: Signed Starcher And Tenter Range Feeder: GURWINDER Carr (Occupational Therapist) OCCUPATIONAL THERAPY TREATMENT NOTE OT Received On: 11/21/17 Reason for Treatment: Other (comment) (T12 compression fx) Requires OT Follow Up: Yes Assistance Required: 1 person School Speech Language Pathologist Needed: No Family/Caregiver Present: No Recommendation: (cont IPR) Equipment Recommended: Adviser Sales, Sock aid, Shoe horn long handled, Sponge [...] to p/u items with use of the quill fixer-pt req uiring for technique and placement of [...] Date of Service: 11/21/17 1130 Status: Signed Starcher And Tenter Range Feeder: GURWINDER Mortensen (Occupational Therapist) OCCUPATIONAL THERAPY TREATMENT NOTE OT Received On: 11/21/17 Reason for Treatment: Other (comment) (T12 compression fx) Requires OT Follow Up: Yes Assistance Required: 1 person School Speech Language Pathologist Needed: No Family/Caregiver Present: No Recommendation: (cont IPR) Equipment Recommended: Adviser Sales, Sock aid, Shoe horn long handled, Sponge [...] Pt participated in floor retriev al with quill fixer. Bed mobility OOB mod I. STS to [...] Date of Service: 11/21/17 1000 Status: Signed Starcher And Tenter Range Feeder: Yisel Goetz PT (Physical Therapist) PHYSICAL THERAPY [...] in room sit ting in w/c with AXMINSTER RUG SETTER to assist pt back to bed once [...] Aware: SELAM Cyr Safety Devices in Place: (AXMINSTER RUG SETTER to assist pt back to bed once [...] of learning [] Refused tegTereza johnson MS CCC-GRAB SETTER - 11/21/2017 8:45 AM PDT Therapy Progress Note by Tereza Montanez MS CCC-GRAB SETTER at 11/21/17 3442 Author: Tereza Montanez MS CCC-GRAB SETTER Service: (none) Author Type: Speech and Language Pathologist Filed: 11/21/17 1130 Date of Service: 11/21/17 2696 Status: Signed Starcher And Tenter Range Feeder: Tereza Montanez MS CCC-GRAB SETTER (Speech and Language Pathologist) ADULT STANDARDIZED TESTS GRAB SETTER Last Visit GRAB SETTER Received On: 11/21/17 Requires GRAB SETTER Follow Up: Yes Assessment of Language-Related Functional Activities Understanding medicine labels # correct: 8 Understanding medicine labels % correct: 80 SPEECH - LANGUAGE - COGNITION GRAB SETTER Received On: 11/21/17 Requires GRAB SETTER Follow Up: Yes Session type: Treatment Family/Caregiver [...] of learning [] Refused Tereza Montanez MS CCC-GRAB SETTER ristobal, Felipe Obrien MD - 11/21/2017 7:24 AM PDTFormatting of this note might be different from the arin delgadillo Progress Notes by Wing Micah Jain MD at 11/21/17723 Author: Wing Micah Jain MD Service: (none) Author Type: Physician Filed: 11/21/17723 Date of Service: 11/21/17723 Status: Signed Starcher And Tenter Range Feeder: Wing Micah Jain MD (Physician) [facility] Service: Physical Medicine & Rehab Progress [...] stable Plan: pain management T12 compression fracture ([facility]) (09/19/2017) Assessment: stable Plan: pain management Chronic atrial fibrillation (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) (10/21/2017) Assessment: stable Plan: on oxygen Hypertension [...] (none) Author Type: Occupational Therapist Filed: 11/20/17 2065 Date of Service: 11/20/17 1525 Status: Signed Starcher And Tenter Range Feeder: GURWINDER Mortensen (Occupational Therapist) OCCUPATIONAL THERAPY TREATMENT NOTE OT Received On: 11/20/17 Reason for Treatment: Other (comment) (T12 compression fx) Requires OT Follow Up: Yes Assistance Required: 1 person School Speech Language Pathologist Needed: No Family/Caregiver Present: No Recommendation: (cont IPR) Equipment Recommended: Adviser Sales, Sock aid, Shoe horn long handled, Sponge [...] (none) Author Type: Physical Therapist Filed: 11/20/17 6593 Date of Service: 11/20/170 Status: Signed Starcher And Tenter Range Feeder: Samira Sanders PT (Physical Therapist) PHYSICAL THERAPY [...] Date of Service: 11/20/17 1100 Status: Signed Starcher And Tenter Range Feeder: Samira Sanders PT (Physical Therapist) PHYSICAL THERAPY [...] Date of Service: 11/20/17 1000 Status: Signed Starcher And Tenter Range Feeder: GURWINDER Mortensen (Occupational Therapist) OCCUPATIONAL THERAPY TREATMENT NOTE OT Received On: 11/20/17 Reason for Treatment: Other (comment), Deconditioning (T12 compression fx) Requires OT Follow Up: Yes Assistance Required: 1 person School Speech Language Pathologist Needed: No Family/Caregiver Present: No Recommendation: (cont IPR) Equipment Recommended: Adviser Sales, Sock aid, Shoe horn long handled, Sponge [...] Body Dressing Clothing Items Worn This Session: loom changeover operator shirt Upper Body Dressing Final Score: Minimal [...] Grubbs Service: (none) Author Type: Speech and Fancy Sewer ologist Filed: 11/20/17 9164 Date of Service: 11/20/17914 Status: Addendum Starcher And Tenter Range Feeder: CHAYITO GrubbsGRAB SETTER (Speech and Language Pathologist) Related Notes: Original Note by Savita Sandoval, GRAB SETTER-S (Speech Therapist) filed at 11/04 01/21 1129 ADULT STANDARDIZED TESTS GRAB SETTER Last Visit GRAB SETTER Received On: 11/20/17 Requires GRAB SETTER Follow Up: Yes Plan of Care Treatment [...] this time. SPEECH - LANGUAGE - COGNITION GRAB SETTER Received On: 11/20/17 Requires GRAB SETTER Follow Up: Yes Treatment Plan: Continue with [...] evidence of learning [] Refused Savita Sandoval, GRAB SETTER-S 11/20/2017 Student therapist educationally participated in therapy [...] vazquez student's role in care. Dulce Branch CCC-GRAB SETTER Wing Micah Lopes MD - 11/20/2017 6:53 AM PDTFormatting of this note might be different from the orig inal. Progress Notes by Wing Micah Jain MD at 11/20/17 0653 Author: Wing Micah Jain MD Service: (none) Author Type: Physician Filed: 11/20/17 0739 Date of Service: 11/20/17652 Status: Addendum Starcher And Tenter Range Feeder: Wing Micah Jain MD (Physician) Related Notes: Original Note by Wing Micah Jain MD (Physician) filed at 11/20/17 0653 [facility] Service: Physical Medicine & Rehab Progress [...] stable Plan: pain management Chronic atrial fibrillation (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) (10/21/2017) Assessment: stable Plan: on oxygen Hypertension [...] 0344 Date of Service: 11/20/17327 Status: Signed Starcher And Tenter Range Feeder: Juventino Velasco RN (Registered Nurse) Patient set [...] 11/19/171817 Date of Service: 11/19/171817 Status: Signed Starcher And Tenter Range Feeder: Enzo Chan (Recreational Therapist) 11/19/171816 Attendance Activity [...] Note by Josy Kwok PT at 11/19/17 1504 Author: Josy Kwok PT Service: (none) Author Type: Physical Therapist Filed: 11/19/17 1526 Date of Service: 11/19/171504 Status: Signed Starcher And Tenter Range Feeder: Josy Kwok PT (Physical Therapist) PHYSICAL THERAPY TREATMENT NOTE PT Received On: 11/19/17 Reason for Treatment: Other (comment) (/p fall with compression fx, SOB with CHF exacerbati on) Requires PT Follow Up: Yes Follow up PT Only?: No Assistance Required: 1 person School Speech Language Pathologist Needed: No Recommendations: IRF Plan Treatment/Interventions: Continue [...] Date of Service: 11/19/17 150 Status: Attested Starcher And Tenter Range Feeder: WILLIAM Byrd (Pharmacist) Cosigner: Yecenia Resendez RPH [...] Byrd 11/19/2017 3:00 PM Levar Reyes MS CCC-GRAB SETTER - 11/19/2017 1:30 PM PDT Therapy Progress Note by Daja Marrero MS CCC-GRAB SETTER at 11/19/17 7065 Author: Daja Marrero MS CCC-GRAB SETTER Service: (none) Author Type: Speech and Language Pathol ogist Filed: 11/19/17 9261 Date of Service: 11/19/17 4313 Status: Signed Starcher And Tenter Range Feeder: Daja Marrero MS CCC-GRAB SETTER (Speech and Language Pathologist) SPEECH - LANGUAGE - COGNITION GRAB SETTER Received On: 11/19/17 Requires GRAB SETTER Follow Up: Yes Treatment Plan: Continue with [...] lawn. Goals are progressing unless otherwise indicated. GRAB SETTER to con't testing and indirectly work on [...] of learning [] Refused DAJA MARRERO MS CCC-GRAB SETTER 11/19/2017 Mariajose Bajwa OTR/L - 11/19/2017 1:00 PM PDTFormatting of this note might be different from the arin delgadillo Therapy Progress Note by GURWINDER Mortensen at 11/19/17 1300 Author: GURWINDER Mortensen Service: (none) Author Type: Occupational Therapist Filed: 11/19/17 1941 Date of Service: 11/19/17 1300 Status: Signed Starcher And Tenter Range Feeder: GURWINDER Mortensen (Occupational Therapist) OCCUPATIONAL THERAPY TREATMENT NOTE OT Received On: 11/19/17 Reason for Treatment: Deconditioning, Other (comment) (T12 compression fx) Requires OT Follow Up: Yes Assistance Required: 1 person School Speech Language Pathologist Needed: No Family/Caregiver Present: No Recommendation: (cont IPR) Equipment Recommended: Adviser Sales, Sock aid, Shoe horn long handled, Sponge [...] understanding. Pt left sitting in wc for GRAB SETTER session at end of this session, no other needs identified. Therapeutic exercise - strength Therapeutic Exercise - Strength Strength: Yes Strength Exercise: STS x 5 reps sba with for techniques. Safety Devices in Place: Yes Type of Devices: Chair alarm, Wheelchair (with GRAB SETTER) Barriers to d/c at this time include: [...] (none) Author Type: Physical Therapist Filed: 11/19/17 9979 Date of Service: 11/19/170 Status: Signed Starcher And Tenter Range Feeder: Samira Sanders PT (Physical Therapist) PHYSICAL THERAPY [...] Author: RONNELL Rangel Service: (none) Author Type: Fishing Vessel Mate Filed: 11/19/17 111 Date of Service: 11/19/171117 Status: Signed Starcher And Tenter Range Feeder: RONNELL Rangel (Fishing Vessel Mate) The interdisciplinary team rounded with the patient and family (son and DIL) after team con ference. A copy of the team conference was provided and questions were answered. RONNELL RM 11/19/2017 11:18 AM onver kelin Higginsaction, Provider Unknown - 11/19/2017 9:56 AM PDT Case Management by RONNELL Rangel at 05/955 Author: RONNELL Rangel Service: (none) Author Type: Fishing Vessel Mate Filed: 11/19/1758 Date of Service: 11/19/17955 Status: Signed Starcher And Tenter Range Feeder: RONNELL Rangel (Fishing Vessel Mate) Met with pt, son and DIL to discuss dcp. Provided information for traveling notaries. Pt' s PCP has recently retired therefore will need to follow-up with his office to see who will provide services. Pt's Cat Sitter is Dr. Knox, they would prefer for him to monitor INR i f possible. onver kelin Transaction, Provider Unknown - 11/19/2017 8:15 AM PDT Therapy Progress Note by SABAS Carr/Gaby at 11/19/17814 Author: GURWINDER Carr Service: (none) Author Type: Occupational Therapist Filed: 11/19/1748 Date of Service: 11/19/17814 Status: Addendum Starcher And Tenter Range Feeder: GURWINDER Carr (Occupational Therapist) Related Notes: Original Note by GURWINDER Carr (Occupational Therapist) filed at 39 OCCUPATIONAL THERAPY TREATMENT NOTE OT Received On: 11/19/17 Reason for Treatment: Deconditioning Requires OT Follow Up: Yes Assistance Required: 1 person School Speech Language Pathologist Needed: No Family/Caregiver Present: No Recommendation: (cont IPR) Equipment Recommended: Adviser Sales, Sock aid, Shoe horn long handled, Sponge [...] person. LE Dressing LE Dressing Adaptive Equipment: Adviser Sales, Sock aide Sock Level of Assistance: Setup, Minimal verbal cues Shoe Level of Assistance: Setup, Minimal verbal cues LE Dressing Where Assessed: Wheelchair LE Dressing Comments: Reviewed use of AE, including quill fixer & sockaid. Pt still requiring V Cs for technique. Pt was able to don sandals when top strap (closest to toe) already fastene d. Pt was able to grab onto strap closest to ankle with use of the quill fixer. Additional time to complete, but was successful. Reviewed locations to purchase AE and benefits to its use, including reinforcing back precautions and increasing independence in ADLs. Functional Standing Tolerance Time: 4+ Activity: Retrieval tasks with use of FWW and quill fixer. Comments: Pt was able to reach for [...] Social Interaction Social Interaction Final Score: Complete [place] Problem Solving Problem Solving Final Score: Modified [place] Memory Memory Final Score: Modified [place] Pain The patient reported pain rated at [...] Refused Addendum to add home safety questionnaire [facility] Occupational Therapy Department Home Safety Assessment 1. What is the month? November 2. What is the day? 3. What is the year? 2017 4. If there is a storm at night and the electricity went off, what would you do? (get a fla shlight, light a candle, go to a friends house for the night, call the paid search manager) to go sleep, (with cueing) grab a flashlight 5. What would you do if it was still off the next day? (call the [employer]) call someon e; son or [employer] 6. What type of heat source do you have in your home? (electricity, gas, oil, wood, other) electric 7. If it is snowing outside and your heat wasn t working, what would you do? (put on warm clothing, stay with a friend, call the electric/gas company) blankets 8. Who would you call to fix your heat? [facility] 9. If there is a tear in [...] you do first? (turn off the breaker, route service manager, call fire department to find out) unplug the la mp 12. What should you do next? (pull plug if breaker is off, route service manager, etc) turn the dong ker off 13. [...] it up or smother 18. If you pickling grader the phone to call 911 during an [...] 11/18/171819 Date of Service: 11/18/171819 Status: Signed Starcher And Tenter Range Feeder: Enzo Chan (Recreational Therapist) 11/18/171817 Attendance Activity [...] Note by Shena Loredo RPH at 11/18/17 341 Author: Shena Loredo RPH Service: Pharmacy Author Type: Pharmacist Filed: 11/18/17 155 Date of Service: 11/18/171552 Status: Signed Starcher And Tenter Range Feeder: Shena Loredo RPH (Pharmacist) Antimicrobial Stewardship Team [...] Progress Note by EVANGELIST Braun at 11/18/17 1455 Author: EVANGELIST Braun Service: (none) Author Type: Physical Therapist Filed: 11/18/17 0683 Date of Service: 11/18/171449 Status: Attested Starcher And Tenter Range Feeder: EVANGELIST Braun (Physical Therapist) Cosigner: Josy Kwok PT at 5 Attestation signed by Josy Kwok PT at 11/18/17 162 Student therapist educationally participated in therapy session under the supervision of brent vazquez licensed therapist. This note was created by the student therapist and co-signed by the [facility]. Information in this note may have [...] Barriers to Discharge: Physical Deficits Impacting Functional [place], Self-care Defic its Impacting Functional [place], Equipment Needs (see comment) Plan Treatment/Interventions: Continue [...] (none) Author Type: Speech Therapist Filed: 11/18/17 1449 Date of Service: 11/18/17 1345 Status: Attested Starcher And Tenter Range Feeder: SARAH NewellS (Speech Therapist) Cosigner: MS CHAYITO AlvarezS LP at 11/18/17 1548 Attestation signed by MS TREY Alvarez at 11/18/17 3777 Student therapist educationally participated in therapy session under the supervision of brent vazquez licensed therapist. This note was created by the student therapist and co-signed by the formerly named [facility] therapist. Information in this note may have been obtained from flowsheet charting. T his note is co-signed at the treatment plan/progress note level. The patient approved of brent vazquez student's role in care. 11/18/17 1345 GRAB SETTER Last Visit GRAB SETTER Received On 11/18/17 Requires GRAB SETTER Follow Up Yes General Session type Treatment Additional Pertinent History Session targeted memory of OT vocabulary (sock aid and quill fixer ) as well as the initiation of [...] evaluation/treatment Treatment Frequency 4-6 x/week Memory/Recall Goals Singing Messenger Goals Increased recall Pt will demonstrate increased [...] evidence of learning [] Refused Savita Sandoval, GRAB SETTER-S 11/18/2017 Marianne Nur OTR/Gaby - 11/18/2017 12:45 PM PDTFormatting of this note might be different from t he original. Therapy Progress Note by GURWINDER Rogers at 11/18/17 4071 Author: GURWINDER Rogers Service: (none) Author Type: Occupational Therapist Filed: 11/18/17 4896 Date of Service: 11/18/17 1241 Status: Signed Starcher And Tenter Range Feeder: GURWINDER Rogers (Occupational Therapist) OCCUPATIONAL THERAPY TREATMENT NOTE OT Received On: 11/18/17 Reason for Treatment: Deconditioning Requires OT Follow Up: Yes Assistance Required: 1 person School Speech Language Pathologist Needed: No Family/Caregiver Present: No Recommendation: (cont IPR) Equipment Recommended: Adviser Sales, Sock aid, Leg liftner Requires OT Follow [...] ADL/IADL LE Dressing LE Dressing Adaptive Equipment: Adviser Sales, Sock aide LE Dressing Where Assessed: Wheelchair LE Dressing Comments: Trial of quill fixer and sock aid for LE dressing. Pt [...] Social Interaction Social Interaction Final Score: Modified [place] Problem Solving Problem Solving Final Score: Minimal [...] Progress Note by GURWINDER Rogers at 11/18/17 8725 Author: GURWINDER Rogers Service: (none) Author Type: Occupational Therapist Filed: 11/18/17 1527 Date of Service: 11/18/171129 Status: Signed Starcher And Tenter Range Feeder: GURWINDER Rogers (Occupational Therapist) 11/18/17 8281 OT Last Visit OT Received On 06/05/18 Reason for Treatment Deconditioning Requires OT Follow Up Yes Assistance Required 1 person School Speech Language Pathologist Needed No Family/Caregiver Present No Precautions Spinal [...] goals Recommendation Recommendation (cont IPR) Equipment Recommended Adviser Sales;Sock aid;Leg emergency specialist 3 11/18/17 1130 Grooming Which grooming tasks [...] - Total Assistance for Bladder Management Required [place] changes diaper/absorbent pad Bladder Management: Level of [...] Author: RONNELL Rangel Service: (none) Author Type: Fishing Vessel Mate Filed: 11/18/17 1124 Date of Service: 11/18/17 110 Status: Signed Starcher And Tenter Range Feeder: RONNELL Rangel (Fishing Vessel Mate) 11/18/17 1000 Discharge Planning Evaluation Admitting Diagnosis [...] Dora Relationship to Patient DIL Phone number [phone] Mental Status Oriented Prior functional status independent Power of College Football Coach No Resources Financial concerns No Transportation issues No Patient/Family concerns No Prescription Plan Yes Name of Pharmacy [facility] in [place], Mail order Met with patient and completed initial assessment and discussed discharge planning, Pt is a 87 y.o., male. Pt was living alone prior to admit. He said he was struggling with taking care of his own needs, therefore the dcp is for patient to move in with his son Blayne and JOHNNY John. 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 Pt was driving pr ior to admit. He already has a disabled parking permit. Pt denied depression or anxiety. Patient's PCP is: Eze Rice Patient's insurance: Medicare/[facility] Coverage concerns: No Medication coverage/concerns: No Rx [...] 0959 Date of Service: 11/18/17899 Status: Signed Starcher And Tenter Range Feeder: Josy Kwok PT (Physical Therapist) PHYSICAL THERAPY RE-assessment [...] Barriers to Discharge: Physical Deficits Impacting Functional [place], Self-care Defic its Impacting Functional [place], Equipment Needs (see comment) Plan Treatment/Interventions: Continue [...] 11/18/17712 Date of Service: 11/18/17711 Status: Signed Starcher And Tenter Range Feeder: Wing Micah Jain MD (Physician) [facility] Service: Physical Medicine & Rehab Progress [...] nasal oxygen Chronic respiratory failure with hypoxia ([facility]) (10/21/2017) Assessment: stable Plan: on oxygen Hypertension [...] Note by Josy Kwok PT at 11/17/17 5151 Author: Josy Kwok PT Service: (none) Author Type: Physical Therapist Filed: 11/17/17 1549 Date of Service: 11/17/17 3326 Status: Signed Starcher And Tenter Range Feeder: Josy Kwok PT (Physical Therapist) PHYSICAL THERAPY [...] Progress Note by EMMA Jauregui at 11/17/17 6970 Author: EMMA Jauregui Service: (none) Author Type: Process Excellence Manager ranjit Filed: 11/17/17 1812 Date of Service: 11/17/171329 Status: Signed Starcher And Tenter Range Feeder: EMMA Jauregui (Graffiti Cleaner) OCCUPATIONAL THERAPY TREATMENT NOTE OT Received On: 11/17/17 Reason for Treatment: Deconditioning Requires OT Follow Up: Yes Assistance Required: 1 person School Speech Language Pathologist Needed: No Family/Caregiver Present: No Recommendation: (cont IPR) Equipment Recommended: Adviser Sales, Sock aid, Leg liftner Requires OT Follow [...] Body Dressing Clothing Items Worn This Session: loom changeover operator shirt Upper Body Dressing Final Score: Supervision/Set-up [...] (none) Author Type: Physical Therapist Filed: 11/17/17 5161 Date of Service: 11/17/17 1100 Status: Signed Starcher And Tenter Range Feeder: Josy Kwok PT (Physical Therapist) PHYSICAL THERAPY [...] 1020 Date of Service: 11/17/171016 Status: Addendum Starcher And Tenter Range Feeder: Wing Micah Jain MD (Physician) Related Notes: Original Note by Wing Micah Jain MD (Physician) filed at 11/17/17 101 [facility] Service: Physical Medicine & Rehab Progress [...] stable Plan: pain management Chronic atrial fibrillation (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) (10/21/2017) Assessment: stable Plan: on oxygen Hypertension [...] Progress Note by GURWINDER Cummins at 11/17/17 4030 Author: GURWINDER Cummins Service: (none) Author Type: Occupational Therapist Filed: 11/17/17 1123 Date of Service: 11/17/1792 Status: Signed Starcher And Tenter Range Feeder: GURWINDER Cummins (Occupational Therapist) OCCUPATIONAL THERAPY TREATMENT NOTE OT Received On: 11/17/17 Reason for Treatment: Deconditioning Requires OT Follow Up: Yes Assistance Required: 1 person School Speech Language Pathologist Needed: No Family/Caregiver Present: No Recommendation: (cont [...] LE Dressing: Yes LE Dressing Adaptive Equipment: Adviser Sales, Sock aide Pants Level of Assistance: Moderate [...] Which grooming tasks completed during this session?: [place] hair, Wash/rinse/dry hands, Wash /rinse/dry face Patient completed % of overall grooming tasks: 100 Percent Grooming Final Score: Supervision/Set-up Upper Body Dressing Clothing Items Worn This Session: loom changeover operator shirt Upper Body Dressing Final Score: Supervision/Set-up [...] Social Interaction Social Interaction Final Score: Complete [place] Problem Solving Problem Solving Final Score: Modified [place] Memory Memory Final Score: Modified [place] Barriers to d/c at this time include: [...] 11/16/172055 Date of Service: 11/16/172053 Status: Signed Starcher And Tenter Range Feeder: Wing Micah Jain MD (Physician) [facility] Service: Physical Medicine & Rehab Progress [...] stable Plan: cont with Digoxin COPD, severe ([facility]) (10/21/2017) Assessment: stable Plan: on nasal oxygen [...] 11/16/171413 Date of Service: 11/16/171413 Status: Signed Starcher And Tenter Range Feeder: Enzo Chan (Recreational Therapist) 11/16/17 1409 Attendance Activity (Recreational Assessment review) Therapeutic Recreation Social Skills Initiates conversation or social interaction (very talkative) Physical Functioning Skills Increase tolerance Cognitive Function (good) Leisure Participation Active participation [place] Interest (tv, reading, crafts, music, computers, cooking, rope hobby) Satisfied with Leisure Interest Yes ("Really good.") Time Spent With Patient Minutes 45 Requires REC Follow Up Yes (possible Knowledge Adventure project, history journaling, magic cards) onver kelin Transaction, Provider Unknown - 11/15/2017 11:51 PM PDT Nurse Progress Note by Juventino Velasco RN at 11/15/17 2060 Author: Juventino Velasco RN Service: (none) Author Type: Registered Nurse Filed: 11/15/17 1035 Date of Service: 11/15/17 102 Status: Signed Starcher And Tenter Range Feeder: Juventino Velasco RN (Registered Nurse) UA culture came back positive tonight (2230) for gram positive cocci. Called Dr. Cristina alvarado he attending (1828) for orders but he declined to make any new changes. onver kelin Transaction, Provider Unknown - 11/15/2017 6:24 PM PDT Nurse Progress Note by Naina Angeles RN at 11/15/171823 Author: Naina Angeles RN Service: (none) Author Type: Registered Nurse Filed: 11/15/171924 Date of Service: 11/15/171823 Status: Signed Starcher And Tenter Range Feeder: Naina Angeles RN (Registered Nurse) No significant [...] Date of Service: 11/15/17 1630 Status: Signed Starcher And Tenter Range Feeder: Navdeep Chisholm PT (Physical Therapist) PHYSICAL THERAPY TREATMENT NOTE PT Received On: 11/15/17 Reason for Treatment: Other (comment) (S/p fall with T-12 compression fx) Requires PT Follow Up: Yes Follow up PT Only?: No Focus for Next Treatment: Bed Mobility Technique, Transfer Technique Assistance Required: 1 person Recommendations: IRF Barriers to Discharge: Physical Deficits Impacting Functional [place], Self-care Defic its Impacting Functional [place] Plan Treatment/Interventions: Continue per Primary PT POC [...] Progress Note by GURWINDER Devlin at 11/15/17 1106 Author: GURWINDER Devlin Service: (none) Author Type: Occupational Therapist Filed: 11/15/17 9917 Date of Service: 11/15/17 9852 Status: Signed Starcher And Tenter Range Feeder: GURWINDER Devlin (Occupational Therapist) OCCUPATIONAL THERAPY TREATMENT NOTE OT Received On: 11/15/17 Reason for Treatment: Deconditioning Requires OT Follow Up: Yes Assistance Required: 1 person School Speech Language Pathologist Needed: No Family/Caregiver Present: No Recommendation: (cont [...] notified, Call lite in place, Other (comment) (AXMINSTER RUG SETTER in room ) FIM Grooming Which grooming tasks completed during this session?: [place] hair, Wash/rinse/dry hands, Wash /rinse/dry face Patient [...] Body Dressing Clothing Items Worn This Session: loom changeover operator shirt Upper Body Dressing Final Score: Supervision/Set-up [...] 11/15/17916 Date of Service: 11/15/17914 Status: Signed Starcher And Tenter Range Feeder: Graeme Evans DO (Physician) [facility] Service: Physical Medicine & Rehab Progress [...] & PLAN Continue full PT, OT and GRAB SETTER program Disposition: home Code Status: Prior Graeme Evans DO 11/15/2017 documented in this encounter H&P Notes Harmony Byrne MD - 11/14/2017 4:56 PM PDT H&P by Harmony Byrne MD at 11/14/17 6991 Author: Harmony Byrne MD Service: Physical Medicine and Rehab Author Type: Physician Filed: 11/14/17 1800 Date of Service: 11/14/17 3327 Status: Signed Starcher And Tenter Range Feeder: Harmony Byrne MD (Physician) [facility] Service: Physical Medicine and Rehab Admission [...] Pt says that he sees Dr Knox, recovery collector, and Dr Wei, disability liaison officer. His medicatio ns were changed and his Lasix was increased but he stopped all Lasix a few days before admis kelin. He also fell 3 - 4 days before admission. He has Chronic Back pain but the pain marilyn me increasingly worse. He denies leg weakness or numbness. His edema and dyspnea also in creased so he came to [facility]. He was admitted and aggressively diuresed. [...] clamping routine prior to disc harge to [facility] without success. No BM x 1 week. [...] 23.81 kg/m HEENT: No Neck Lymph Nodes. [place]. . RESP: Pt speaks in short sentences [...] CN 2 - 12 grossly normal except [place]. Reflexes symmetric. Sens ations of light touch [...] with hypoxia (HCC) [facility] 87 y/[facility] male admitted to [facility] for debilitation due to CHF and Gait [...] next day. Bladder Ultrasound s prn. 9. [place]. [facility] working. 10. Disposition. [...] 0237 Date of Service: 12/02/17235 Status: Signed Starcher And Tenter Range Feeder: Esha Garcia RN (Registered Nurse) Patient will [...] 12/01/171832 Date of Service: 12/01/171832 Status: Signed Starcher And Tenter Range Feeder: Gonsalo Voss RN (Registered Nurse) Problem: Pain [...] 11/30/172342 Date of Service: 11/30/172342 Status: Signed Starcher And Tenter Range Feeder: Juventino Velasco RN (Registered Nurse) Problem: Pain [...] 0758 Date of Service: 11/30/17757 Status: Signed Starcher And Tenter Range Feeder: Jody Brown RN (Registered Nurse) Problem: Bowel [...] 11/29/172357 Date of Service: 11/29/172357 Status: Signed Starcher And Tenter Range Feeder: Juventino Velasco RN (Registered Nurse) Problem: Pain [...] 11/29/17843 Date of Service: 11/29/17843 Status: Signed Starcher And Tenter Range Feeder: Marisol Tyler RN (Registered Nurse) Problem: Knowledge [...] 11/29/177 Date of Service: 11/29/1716 Status: Signed Starcher And Tenter Range Feeder: Juventino Velasco RN (Registered Nurse) Problem: Pain [...] 11/28/17941 Date of Service: 11/28/17941 Status: Signed Starcher And Tenter Range Feeder: Jody Brown RN (Registered Nurse) Problem: Risk [...] 11/28/1733 Date of Service: 11/28/1733 Status: Signed Starcher And Tenter Range Feeder: Donya Venegas RN (Registered Nurse) Problem: Bladder/Voiding [...] 11/27/17922 Date of Service: 11/27/17922 Status: Signed Starcher And Tenter Range Feeder: Marisol Tyler RN (Registered Nurse) Problem: Safety [...] Donya Venegas RN at 11/26/172327 Author: Donya Venegas RN Service: (none) Author Type: Registered Nurse Filed: 11/26/172327 Date of Service: 11/26/172327 Status: Signed Starcher And Tenter Range Feeder: Donya Venegas RN (Registered Nurse) Problem: Pain [...] by Wing Micah Jain MD at 11/26/17 3840 Author: Wing Micah Jain MD Service: (none) Author Type: Physician Filed: 11/26/17 8969 Date of Service: 11/26/17 1446 Status: Signed Starcher And Tenter Range Feeder: Wing Micah Jain MD (Physician) INTERDISCIPLINARY TEAM CONFERENCE INPATIENT REHAB UNIT Patient's Name: Yeyo Casarez Admit Date: 11/14/2017 CSN: [id number] Admit Dx (Etiologic Dx): T12 compression fracture; [...] recommended (to be obtained by family/friends): Leg emergency specialist, tub transfer bench, g rab bars in [...] story Home Exterior Layout: 1-3 steps (1 IACHA) Home Interior Layout: Lives on main level with bedroom/bathroom Bathroom Shower/Tub: Tub/shower unit Bathroom Toilet: Standard Bathroom Accessibility: Accessible via walker Home Equipment: Cane quad Prior Function Level of [place]: Modified independent with functional mobility, Modified independent with ADLs, Assist with IADLs, Driving in community Falls in Past Year: Yes Lives With: Alone Receives Help From: Credit Review Analyst ADL Assistance: Independent Home ADL's: (Assistance provided by housekeeper nanny and son) Employment: Retired for age Leisure: [...] continue) LE Dressing Adaptive Equipment: Sock aid, Adviser Sales, Dressing stick Functional Transfer Goals Pt Will Perform All Functional Transfers: With min assist, With assistive device, Goal met (LTG supervision-goal met) Speech Therapy Goals Memory/Recall Goals Singing Messenger Goals: Increased recall Pt will demonstrate increased [...] progressing Staff present Administration: Wing Cristobal MD, High School Guidance Counselor Therapy Services Discharge Planning: RONNELL Rangel, Outboard Motor MechanicSecurity Monitor Services: Barbara Edwards RN Occupational Therapy: Mariajose Morin, OTR/L Physical Therapy: Carisa Garner, PT Speech/Language Pathology: Daja Marrero MS, CCC-GRAB SETTER Scribe: Jana Loredo PT Trinity Singh MA, CCC-GRAB SETTER - 11/26/2017 10:15 AM PDTFormatting of this note might be differe nt from the original. Treatment Plan by Trinity Arzola MA CCC-GRAB SETTER at 11/26/17 1015 Author: Trinity Arzola MA CCC-GRAB SETTER Service: (none) Author Type: Speech and Language Pathologist Filed: 11/26/17 3819 Date of Service: 11/26/17 1015 Status: Signed Starcher And Tenter Range Feeder: Trinity Arzola MA CCC-GRAB SETTER (Speech and Language Pathologist) SPEECH - LANGUAGE - COGNITION GRAB SETTER Received On: 04/20/18 Requires GRAB SETTER Follow Up: Yes Treatment Plan: Cognitive evaluation/treatment [...] of learning [] Refused Trinity Arzola MA CCC-GRAB SETTER lan o f Care - Conversion Transaction, Provider Unknown - 11/26/2017 9:40 AM PDTFormatting of thi s note might be different from the original. Plan of Care by Marisol Tyler RN at 11/26/17939 Author: Marisol Tyler RN Service: (none) Author Type: Registered Nurse Filed: 11/26/17939 Date of Service: 11/26/17939 Status: Signed Starcher And Tenter Range Feeder: Marsiol Tyler RN (Registered Nurse) Problem: Safety Goal: [...] 11/26/178 Date of Service: 11/26/17326 Status: Signed Starcher And Tenter Range Feeder: Esha Garcia RN (Registered Nurse) Patient will [...] Date of Service: 05/22/18 1600 Status: Signed Starcher And Tenter Range Feeder: Dulce Sanders, PT (Physical Therapist) PHYSICAL THERAPY RE-EVALUATION PT Received On: 11/25/17 Reason for Treatment: Other (comment) (L1 compression fracture) Requires PT Follow Up: Yes Follow up PT Only?: No Focus for Next Treatment: Stair Training, Family Training/Education (see comment), Bed Mobi lity Technique, Transfer Technique PT Eval/Reassessment Date: 11/25/17 Assistance Required: 1 person School Speech Language Pathologist Needed: No Recommendations: IRF (HHPT at d/c) [...] bed. Pt and family to benefit from [facility] to progress all mobility techniques [...] 11/25/17941 Date of Service: 11/25/17941 Status: Signed Starcher And Tenter Range Feeder: Jody Brown RN (Registered Nurse) Problem: Pain [...] 0309 Date of Service: 11/25/17308 Status: Signed Starcher And Tenter Range Feeder: Esha Garcia RN (Registered Nurse) Patient will [...] 11/24/17940 Date of Service: 11/24/17940 Status: Signed Starcher And Tenter Range Feeder: Jody Brown RN (Registered Nurse) Problem: Risk [...] 11/23/172229 Date of Service: 11/23/172229 Status: Signed Starcher And Tenter Range Feeder: Anna Joaquin RN (Registered Nurse) Problem: Bladder/Voiding Goal: LTG - Patient will achieve acceptable level of continence Outcome: Progressing Pt remains continent. Uses urinal at bedside. Will continue to monitor. Dejan DSOS lan o f Care - Conversion Transaction, Provider Unknown - 11/23/2017 10:39 AM PDTFormatting of thi s note might be different from the original. Plan of Care by Naina Angeles RN at 11/23/171038 Author: Naina Angeles RN Service: (none) Author Type: Registered Nurse Filed: 11/23/179 Date of Service: 11/23/171038 Status: Signed Starcher And Tenter Range Feeder: Naina Angeles RN (Registered Nurse) Problem: Bowel [...] 11/22/172301 Date of Service: 11/22/172301 Status: Signed Starcher And Tenter Range Feeder: Evelin Chan RN (Registered Nurse) Problem: Bladder/Voiding [...] 154 Date of Service: 11/22/171544 Status: Signed Starcher And Tenter Range Feeder: Naina Angeles RN (Registered Nurse) Problem: Pain [...] 11/21/174 Date of Service: 11/21/172333 Status: Signed Starcher And Tenter Range Feeder: Evelin Chan RN (Registered Nurse) Problem: Safety [...] 11/21/17956 Date of Service: 11/21/17956 Status: Signed Starcher And Tenter Range Feeder: Marisol Tyler RN (Registered Nurse) Problem: Safety [...] 11/20/172347 Date of Service: 11/20/172347 Status: Signed Starcher And Tenter Range Feeder: Juventino Velasco RN (Registered Nurse) Problem: Pain [...] Date of Service: 11/20/17 101 Status: Signed Starcher And Tenter Range Feeder: Jody Brown RN (Registered Nurse) Problem: Pain [...] 11/20/1733 Date of Service: 11/20/1733 Status: Signed Starcher And Tenter Range Feeder: Juventino Velasco RN (Registered Nurse) Problem: Bladder/Voiding [...] 11/19/17949 Date of Service: 11/19/17949 Status: Signed Starcher And Tenter Range Feeder: Marisol Tyler RN (Registered Nurse) Problem: Knowledge [...] 11/19/17910 Date of Service: 11/19/17836 Status: Signed Starcher And Tenter Range Feeder: Wing Micah Jain MD (Physician) INTERDISCIPLINARY TEAM CONFERENCE INPATIENT REHAB UNIT Patient's Name: Yeyo Casarez Admit Date: 11/14/2017 CSN: [id number] Admit Dx (Etiologic Dx): T12 compression fracture; 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 [facility] Impairment Group Code (IGC): 16 Date of [...] Equipment recommended (to be obtained by family/friends): Adviser Sales;Sock aid;Leg emergency specialist Family training pending Driving Not recommended Barriers [...] Equipment: Cane quad Prior Function Level of [place]: Modified independent with functional mobility, Modified independent with ADLs, Assist with IADLs, Driving in community Falls in Past Year: Yes Lives With: Alone Receives Help From: Credit Review Analyst ADL Assistance: Independent Home ADL's: (Assistance provided by housekeeper nanny and son) Employment: Retired for age Leisure: [...] not yet met) LE Dressing Adaptive Equipment: Adviser Sales, Sock aid, Dressing stick Functional Transfer Goals Pt Will Perform All Functional Transfers: With min assist, With assistive device, Goal not met (LTG: Supervision- not met continue) Speech Therapy Goals Memory/Recall Goals Half-Way Goals: Increased recall Pt will demonstrate increased [...] progressing Staff present Administration: Wing Cristobal MD, High School Guidance Counselor Therapy Services Discharge Planning: RONNELL Rangel, Outboard Motor MechanicSecurity Monitor Services: Barbara Edwards RN Occupational Therapy: Mariajose Morin, OTR/L Physical Therapy: Josy Kwok PT Speech/Language Pathology: JESE Reeder, [facility]-GRAB SETTER Scribe: Jana Loredo, PT lan of Care - Conversi on Transaction, Provider Unknown - 11/19/2017 3:53 AM PDTFormatting of this note might be d ifferent from the original. Plan of Care by Donya Venegas RN at 11/19/17352 Author: Donya Venegas RN Service: (none) Author Type: Registered Nurse Filed: 11/19/17352 Date of Service: 11/19/17352 Status: Signed Starcher And Tenter Range Feeder: Donya Venegas RN (Registered Nurse) Problem: Pain [...] Date of Service: 11/18/17 101 Status: Signed Starcher And Tenter Range Feeder: Marisol Tyler RN (Registered Nurse) Problem: Breathing [...] 11/18/17421 Date of Service: 11/18/17421 Status: Signed Starcher And Tenter Range Feeder: Donya Venegas RN (Registered Nurse) Problem: Bladder/Voiding [...] katelynn at frequent intervals. Meche Hernandez MS CCC-GRAB SETTER - 11/17/2017 10:30 AM PDTFormatting of this note migh t be different from the original. Treatment Plan by Meche Batista MS CCC-GRAB SETTER at 11/17/17 1030 Author: Meche Batista MS CCC-GRAB SETTER Service: (none) Author Type: Speech and Language Pa thologist Filed: 11/17/17 1158 Date of Service: 11/17/17 1030 Status: Signed Starcher And Tenter Range Feeder: Meche Lynne, MS CCC-GRAB SETTER (Speech and Language Pathologist) SPEECH - LANGUAGE - COGNITION GRAB SETTER Received On: 11/17/17 Requires GRAB SETTER Follow Up: Yes Treatment Plan: Cognitive evaluation/treatment Treatment Frequency: 4-6 x/week Session type: Evaluation Additional Pertinent History: Patient reported that he lives alone and is independent with ADLs and iADLs at baseline. 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 Family/Caregiver Present: No Recommend GRAB SETTER to follow to assess safety with ADLs [...] Situation Reasoning: Deficit awareness/judgement Reasoning Comments: After GRAB SETTER explained roles and responsibilities, pt said, "Well, [...] that [facility]. [...] Date of Service: 11/17/17 1018 Status: Signed Starcher And Tenter Range Feeder: Wing Micah Jain MD (Physician) [facility] (Inpatient [...] 11/17/17935 Date of Service: 11/17/17935 Status: Signed Starcher And Tenter Range Feeder: Jody Brown RN (Registered Nurse) Problem: Pain [...] 11/17/17127 Date of Service: 11/17/17127 Status: Signed Starcher And Tenter Range Feeder: Juventino Velasco RN (Registered Nurse) Problem: Bowel [...] 11/16/17941 Date of Service: 11/16/17941 Status: Signed Starcher And Tenter Range Feeder: Jody Brown RN (Registered Nurse) Problem: Bowel [...] 0011 Date of Service: 11/16/1710 Status: Signed Starcher And Tenter Range Feeder: Juventino Velasco RN (Registered Nurse) Problem: Bowel [...] Date of Service: 11/15/17 1405 Status: Signed Starcher And Tenter Range Feeder: Naina Angeles RN (Registered Nurse) Problem: Risk for Falls Goal: No falls during hospitalization Patient will not fall during hospitalization. Outcome: Progressing Needs reminders to call whenever wants to transfer out of bed iscNavdeep Dumont PT - 11/15/2017 10:05 AM PDT Treatment Plan by Navdeep Chisholm PT at 11/15/17 1005 Author: Navdeep Chisholm PT Service: (none) Author Type: Physical Therapist Filed: 11/15/17 4708 Date of Service: 11/15/17 1005 Status: Signed Starcher And Tenter Range Feeder: Navdeep Chisholm PT (Physical Therapist) PHYSICAL THERAPY EVALUATION PT Received On: 11/15/17 Reason for Treatment: Other (comment) (S/p fall with T-12 compression fx, ) Requires PT Follow Up: Yes Follow up PT Only?: No PT Eval/Reassessment Date: 11/15/17 Assistance Required: 1 person School Speech Language Pathologist Needed: No Recommendations: IRF Equipment Recommended: (To be determined) Barriers to Discharge: Physical Deficits Impacting Functional [place], Self-care Defic its Impacting Functional [place], Pain Recommendation Comments: Pt is severely limited [...] brief. Incotinent of bowel episoded in breif, AXMINSTER RUG SETTER A with pericare while PT stabilzed pt [...] Equipment: Cane quad Prior Function Level of [place]: Modified independent with functional mobility, Modified independent with ADLs, Modified independent with IADLs, Driving in community Falls in Past Year: Yes (Pt reports something slipped out of hand and he fell) Lives With: Alone Receives Help From: Credit Review Analyst ADL Assistance: Independent Employment: Retired for age [...] of Assist: With modified independence Low - 99989 Moderate - 61586 High - 20486 History [] no personal factors &/or comorbidities [] 1-2 personal factors &/or comorbiditi es [x] 3 or more personal factors &/or comorbidities Examination [] 1-2 elements [x] 3 elements [] 4 or more elements Clinical Presentation [] stable [] evolving [x] unstable Clinical Decision Making Complexity: [] Low 78983 [x] Moderate 82435 [] High 9 7163 lan of Care - Conversion Transaction, Provider Unknown - 11/15/2017 3:07 AM PDT Plan of Care by Juventino Velasco RN at 11/15/17306 Author: Juventino Velasco RN Service: (none) Author Type: Registered Nurse Filed: 11/15/17306 Date of Service: 11/15/17306 Status: Signed Starcher And Tenter Range Feeder: Juventino Velasco RN (Registered Nurse) Problem: Risk [...] Care by Jessika Black RN at 11/14/17 253 Author: Jessika Black RN Service: (none) Author Type: Registered Nurse Filed: 11/14/17 8705 Date of Service: 11/14/171743 Status: Signed Starcher And Tenter Range Feeder: Jessika Black RN (Registered Nurse) Problem: Bowel [...] Treatment Plan by SABAS Dahl/Gaby at 11/14/17 3904 Author: GURWINDER Dahl Service: (none) Author Type: Occupational Therapist Filed: 11/14/17 3725 Date of Service: 11/14/171506 Status: Signed Starcher And Tenter Range Feeder: GURWINDER Dahl (Occupational Therapist) OCCUPATIONAL THERAPY EVALUATION OT Received On: 11/14/17 Reason for Treatment: Deconditioning Requires OT Follow Up: Awaiting tx order OT Eval/Reassessment Date: 11/14/17 Assistance Required: 1 person School Speech Language Pathologist Needed: No Family/Caregiver Present: No Recommendation: (Cont [...] Equipment: Cane quad Prior Function Level of [place]: Modified independent with functional mobility, Modified independent with ADLs, Assist with IADLs, Driving in community Falls in Past Year: Yes Lives With: Alone Receives Help From: Credit Review Analyst ADL Assistance: Independent Home ADL's: (Assistance provided by housekeeper nanny and son) Employment: Retired for age Leisure: [...] bed (LTG: Supervision) LE Dressing Adaptive Equipment: Adviser Sales, Sock aid, Dressing stick Functional Transfer Goals [...] evidence of learning [] Refused Low - 90086 Moderate - 82270 High - 80154 History [] Brief history including review of medical record [x] Expanded review of medica l records; additional review of physical, cognitive, or psychosocial skills [] Review of tx dical records; extensive additional review of physical, [...] eugenio Clinical Decision Making Complexity: [] Low 48428 [x] Moderate 00570 [] High 28092 docume nted in this encounter Plan of Treatment +--------+---------+ + + + | Date | Type | Specialty | Care Team | Description | +--------+---------+ + + + | 06/22/ | Office | Cardiology | Jody Lebron | | | 2019 | Visit | | [address] | | | | | | [address] | | | | | | [place] [address] | | | | | | [phone] | | | | | | | [...] | | | | | performed at [facility] | | | | | | [place] [facility];[place], [place] | | | | | | [address] | | | | + + + [...] | | | | | performed at [facility] | | | | | | [address];[place], [place] | | | | | | [address] | | | | + + + [...] | | | | | performed at [facility] [place] | | | | | | [facility];[place], [place] | | | | | | [address] | | | | + + + [...] | | | | | performed at [facility] | | | | | | [address];[place], [place] | | | | | | [address] | | | | + + + [...] | | | | | performed at [facility] | | | | | | [facility];[place], [place] | | | | | | [address] | | | | + + + [...] | | Last Dose | performed at [facility] | | LAB | | | | [address];[place] | | | | | | [address] | | | | + + + + + + | Time of | UNKNOWNComment: Testing | | EXTERNAL | | | Last Dose | performed at [facility] | | LAB | | | | [place] [address];[place] | | | | | | [address] | | | | + + + + + + | Digoxin | 1.3Comment: Testing | 0.90 - 2.00 | EXTERNAL | | | level | performed at [facility], [address] | ng/mL | LAB | | | | [address], | | | | | | [place] [address] | | | | + + + [...] | | | | | performed at [facility] | | | | | | [address];[place], [place] | | | | | | [address] | | | | + + + [...] | | | | | performed at [facility] [place] | | | | | | [facility];[place] | | | | | | [address] | | | | + + + [...] | | | | | performed at [facility];[address] | | | | | | [place] [facility];[place], [place] | | | | | | [address] | | | | + + + [...] | | | | | performed at [facility];[address] | | | | | | [address];[place] | | | | | | [address] | | | | + + + [...] | | | | | performed at [facility];[address] | | | | | | [facility];[place], [place] | | | | | | [address] | | | | + + + [...] | | | | | performed at [facility] | | | | | | [facility];[place], [place] | | | | | | [address] | | | | + + + [...] | | | | | performed at [facility];[address] | | | | | | [address];[place], [place] | | | | | | [address] | | | | + + + [...] | | | | | performed at [facility] | | | | | | [place] [facility];[place], [place] | | | | | | [address] | | | | + + + [...] - 1.030 | EXTERNAL | | | [place], | | | LAB | | | [...] | | [facility] | performed at [facility];[address] | | LAB | | | | [place] [address];[place] | | | | | | [address] | | | | + + + [...]
--- OUTSIDE RECORDS SUMMARY | ~2020-02-22 | XMS | Encounter Summary ---
Demographics + + + | Address | [address] | | | [place] [address] | + + + | Home Phone | | + + + | Preferred Language | Unknown | + + + | Marital Status | | + + + | Jainism Affiliation | [id number] | + + + | Race | White | + + + | Ethnic Group | Not or | + + + Author + + + | Author | [facility] | | | and [place] | + + + | Organization | [facility] | | | [...] ECON | Unknown | | | in [facility]) | | | | + + +---------+ + Care Team Providers + +------+ + | Care Vinyl Cutter Name | Role | Phone | + +------+ + | Nalini Jones MD | PCP | | + +------+ + Reason for Visit + + + | Reason | Comments | + + + | Follow-up, Office | 3 month | | Visit | | + + + Encounter Details +--------+---------+ + + + | Date | Type | Department | Care Team | Description | +--------+---------+ + + + | 03/29/ | Office | [facility] | Jody Lebron | Coronary artery | | 2019 | Visit | CARDIOLOGY RE[facility] | [address] | disease of lytton | | | | [address] | [place] [address] | artery of lytton | | | | [address] | [place] [address] | heart with stable | | | | [place] | [phone] | angina pectoris | | | | [id number] | | (HCC) (Primary Dx); | | | | [phone] | | History of non-ST | | | | | | elevation myocardial | | | | | | infarction | | | | | | (NSTEMI); Chronic | | | | | | diastolic heart | | | | | | failure (HCC); | | | | | | Persistent atrial | | | | | | fibrillation (HCC); | | | | | | [...] disease | | | | | | ([facility]); Other | | | | | | secondary pulmonary | | | | | | hypertension ([facility]); | | | | | | 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 | | | | | | disease ([facility]); | | | | | | Chronic obstructive | | | | | | pulmonary disease, | | | | | | unspecified COPD | | | | | | type ([facility]); Chronic | | | | | | respiratory failure | | | | | | with hypoxia, on | | | | | | home O2 therapy | | | | | | ([facility]); Hyperkalemia | +--------+---------+ + + + Social History [...] + + + | Blood Pressure | 116/58 | 03/29/2019 10:43 AM | | | | | PDT | | + + + + + | Pulse | 54 | 03/29/2019 10:43 AM | | | | | PDT | | + + + + + | Temperature | - | - | | + + + + + | Respiratory Rate | - | - | | + + + + + | Oxygen Saturation | 92% | 03/29/2019 10:43 AM | | | | | PDT | | + + + + + | Inhaled Oxygen | - | - | | | Concentration | | | | + + + + + | Weight | 67.7 kg (149 lb 4.8 | 03/29/2019 10:43 AM | | | | oz) | PDT | | + + + + + | Height | 175.3 cm (5' 9") | 03/29/2019 10:43 AM | | | | | PDT | | + + + + + | Body Mass Index | 22.05 | 03/29/2019 10:43 AM | | | | | PDT | | + + + + + documented in this encounter Patient Instructions Patient Instructions Jody Lebron FNP - 03/29/2019 10:30 AM PDTI have ordered you non fasting labs to be done at [facility] in 3 weeks I made these changes to medications : changed torsemide to 10 mg twice a day , and take at 8 am and 2 pm See me back in 1 month documented in this encounter Progress Notes Jody Lebron FNP - 03/29/2019 10:30 AM PDTFormatting of this note might be differe nt from the original. Date of visit: 03/29/2019 Primary Care Physician: Nalini Jones MD CHIEF COMPLAINT: Chief Complaint Patient presents with Follow-up, Office Visit 3 month HISTORY OF PRESENT ILLNESS: Jose Ayala is an 88 year old man who is here today for 3 month follow up on his diastolic heart failure, with slightly seen in visit due to report of increased weight, and shortness of breath He is with his son Blayne, today , who contributed to history , and is his primary caregive r, though he also lives in assisted living at [facility]. He was previously seen patient of and last seen by him 10/16/2017, and also has b een seen by heart failure BAGMAN/WOMAN, Cornelia Escudero , last on 01/2018. He has now established care with Dr. 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 I saw him last in December 24, 2018. 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 Though previously documented as valvular atrial fibrillation , he has not undergone valve surgery, either repair or replacement, and does not have severe rheumatic mitral stenosis. His current and previous testing and procedures are detailed below. He was previously hospitalized on November 1405/2018 until December 022017 at [facility] for increa sed dyspnea, edema, and back pain due to acute heart failure and new T12 compression fractur e felt heart failure exacerbation secondary to stopping diuretic and fall. He was also hospitalized [facility] on June 10 - June 14 for acute decompensa tion of chronic diastolic heart failure and iron deficiency anemia as well as exacerbation o f his chronic respiratory failure, and chronic A. fib . He was admitted again to [facility] September 30 - October 04, 2018 after a ground-level fall at home with injury to his left shoulder, predominantly soft tissue, symptomatic maurice cardia, hypotension, acute kidney injury,in the setting of chronic UTI. His current and previous testing and procedures are detailed below. When last seen by Dr. Godwin, he continued spironolactone 25 mg twice daily, continue torsemide 10 mg daily and recommended it could be increased to 20 mg as needed, continue met oprolol 12.5 mg twice daily, and continued Eliquis 2.5 mg twice daily. I received notification from his care facility last week that his weight and increased t o 148 pounds, and he was having a little central edema, and shortness of breath, and I incre ased his torsemide to 15 mg daily until I could see him today. Today he reports he has not noticed much difference on torsemide 15 mg, and still has reba e increased abdominal edema, though no pedal edema, but dyspnea is stable, and he and his so n report that he was out last week with his son walking around [employer] , and running other errands for considerable length of time, and he tolerated it well, though tired the next da y. Both he and his son and he has increased activity tolerance He has not had any hospital admissions since seen by Dr. Lloyd on November 11, which is also the longest he has gone without being admitted to the emergency room or hospital. He looks much improved today, and is now using a walker to ambulate instead of a wheelchair , and his son reports he seems much stronger and less short of breath, though still using co ntinuous oxygen. He denies any chest pain, focal [...] pertinent items noted in HPI. Constitutional: reports mild ongoing Fatigue, denies unexplained weight loss. Appetite i s good. Weight is Decreased 13 lbs since 11/14/2017 when weighed 162 lbs, dry weight close to 138 lbs Denies night sweats fevers or chills HENT: Denies nosebleeds. Moderate hearing loss. Denies dysphagia Eyes: Denies visual disturbance or double vision. Respiratory/Sleep::Ongoing HERNANDEZ, Use continuous oxygen. 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 Denies hemoptysis or excessive sputum production. Denies snoring, PND. Cardiovascular: Resolved LE edema. Some central edema. Denies chest pain, palpitations .D enies history of rheumatic fever. Denies claudication . [...] other psychiatric il lness. Vaccines: Current on 2018 flu vaccine. Current on pneumonia vaccine. Habits/Social : history of smoking, quit 09/1999. EtOH use. seldom now, previously 2 bourb ons per day, . Drinks 1 servings of caffeine daily . Denies recreational or illicit drug use. Exercises with occasional walking , limited by pain from compression fractures, and O2 and tolerates. Lives in [place] [facility]. Son lives nearby. Use d to live in [facility] Medications Prior to Visit Medication Sig Dispense Refill acetaminophen (TYLENOL) 500 mg tablet Take 500 mg by mouth every 4 (four) hours as need ed for Pain. albuterol-ipratropium 2.5-0.5 mg/3 mL SOLN 0 alendronate (FOSAMAX) 70 mg tablet ampicillin (PRINCIPEN) 500 MG capsule apixaban (ELIQUIS) 2.5 mg tablet Take 1 tablet by mouth 2 (two) times daily. aspirin (ASPIRIN ADULT LOW STRENGTH) 81 mg chewable tablet Take 81 mg by mouth Daily. aspirin 81 MG tablet Take 81 mg by mouth daily. atorvaSTATin (LIPITOR) 10 mg tablet Take 1 tablet by mouth every morning. bisoprolol-hydrochlorothiazide (ZIAC) 10-6.25 mg per tablet one-half tablet by mouth da олег (Patient not taking: Reported on 03/29/2019) Calcium Carbonate-Vitamin D (OYST-DANIELLE-D 500 PO) Take 1 tablet by mouth qhs CARTIA XT 120 MG 24 hr capsule take 1 capsule by mouth once daily 0 cephalexin (KEFLEX) 250 mg capsule Coenzyme Q10 (COQ10) 200 MG CAPS Take 200 mg by mouth Daily. digoxin (LANOXIN) 125 mcg tablet Take 125 mcg by mouth Daily. (Patient not taking: Repo rted on 03/29/2019) doxazosin (CARDURA) 1 mg tablet doxazosin (CARDURA) 2 MG tablet Take 2 mg by mouth 2 times daily. (Patient not taking: Reported on 03/29/2019) ferrous gluconate (FERGON) 324 (38 Fe) MG tablet Take 324 mg by mouth daily with breakf ast. furosemide (LASIX) 20 mg tablet hydrochlorothiazide 25 mg tablet one-half tablet by mouth daily (Patient not taking: Re ported on 03/29/2019) lisinopril (PRINIVIL, ZESTRIL) 10 mg tablet Take 10 mg by mouth 2 times daily. (Patient not taking: Reported on 03/29/2019) lisinopril (PRINIVIL,ZESTRIL) 2.5 MG tablet loperamide (IMODIUM A-D) 2 MG tablet Take 2 mg by mouth 2 times daily. (Patient not kd ing: Reported on 03/29/2019) MAGNESIUM PO Take 400 mg by mouth daily. metoprolol succinate (TOPROL-XL) 25 mg 24 hr tablet metoprolol succinate (TOPROL-XL) 25 mg 24 hr tablet metoprolol tartrate (LOPRESSOR) 25 mg tablet Take 0.5 tablets by mouth 2 (two) times da олег. Hold for HR< 50 bpm, or SBP< 100 mmHg mirabegron (MYRBETRIQ) 50 mg ER tablet Take 1 tablet by mouth daily. Multiple Vitamins-Minerals (CENTRUM SILVER) TABS one by mouth daily (Patient taking dif ferently: 1 tablet.) Multiple Vitamins-Minerals (MULTIVITAMIN ADULT PO) Take 1 tablet by mouth daily. Multiple Vitamins-Minerals (PRESERVISION AREDS 2 PO) Take 1 capsule by mouth daily. MYRBETRIQ 25 MG ER tablet Na Ferric Gluc Cplx in Sucrose (FERRLECIT IV) Inject into the vein once a week. naproxen (NAPROSYN) 500 mg tablet nitrofurantoin (MACROBID) 100 mg capsule olmesartan (BENICAR) 40 MG tablet Take 40 mg by mouth Daily. (Patient not taking: Repor brant on 03/29/2019) oxybutynin (DITROPAN) 5 mg tablet oxyCODONE (OXY-IR) 5 MG capsule Take 5 mg by mouth every 8 (eight) hours as needed. oxyCODONE (ROXICODONE) 5 mg tablet potassium chloride (MICRO-K) 10 mEq CR capsule PROAIR HFA 108 (90 Base) MCG/ACT inhaler simvastatin (ZOCOR) 20 mg tablet simvastatin (ZOCOR) 40 mg tablet Take 40 mg by mouth every evening. (Patient not taking : Reported on 03/29/2019) spironolactone (ALDACTONE) 25 mg tablet Take 25 mg by mouth twice daily spironolactone (ALDACTONE) 50 mg tablet tadalafil (CIALIS) 20 MG tablet Take 20 mg by mouth as needed. (Patient not taking: Rep orted on 03/29/2019) tamsulosin (FLOMAX) 0.4 mg CAPS Take 2 capsules by mouth daily. torsemide (DEMADEX) 10 mg tablet Take 1.5 tablets by mouth Daily. 45 tablet 11 umeclidinium-vilanterol (ANORO ELLIPTA) 62.5-25 mcg/puff inhaler Inhale 1 puff into the lungs daily. UNABLE TO FIND Start oxygen on exertion/ambulation at __ LPM via nasal cannula, and at night at __ LPM. Pls evaluate for conserving device. Pls provide home concentrator and tomasa ble oxygen system. warfarin (COUMADIN) 2 mg tablet warfarin (COUMADIN) 3 MG tablet Take 3 mg by mouth Daily. (Patient not taking: Reported on 03/29/2019) No facility-administered medications prior to visit. PHYSICAL EXAM: Wt Readings from Last 3 Encounters: 03/29/19 67.7 kg (149 lb 4.8 oz) 12/02/17 68.8 kg (151 lb 9.6 oz) 11/14/17 73.5 kg (162 lb 1.6 oz) Temp Readings from Last 3 Encounters: 12/02/17 35.6 C (96.1 F) 11/14/17 36.7 C (98 F) BP Readings from Last 3 Encounters: 03/29/19 116/58 12/02/17 132/74 11/14/17 (!) 141/106 Pulse Readings from Last 3 Encounters: 03/29/19 54 12/02/17 83 11/14/17 111 Vital signs: 12/24/2018 Wt:143 Lbs. BP:110/56 . HR. 62 Vital signs: 11/11/2018 Wt: 136 Lbs. BP: 96/54 . HR. 55 GENERAL: Frail elderly man, in no distress. Appears approximately stated age. HEENT: Normocephalic, atraumatic. EYES: PERRL, EOM normal.orbital and eyelid edema MOUTH: Oral mucosae moist, dentures, no lesions noted NECK: No JVD, lymphadenopathy, thyromegaly, bruits. Carotid pulses are 2+ bilaterally LUNGS/CHEST: Kyphoscoliosis, diminished breath sounds throughout, continuous oxygen. Margot r bilaterally, with no rhonchi or wheezing noted, respirations unlabored HEART: Nondisplaced PMI, irregularly irregular rhythm with borderline controlled rate, S1, S2 normal. 2/6 LLSB Murmurs, [...] branch/ramus intermedius branch, and complete occlusion RCA. [id number]-[id number] involvement of the rest of the system.Good [...] Valsalva, 41 mm. Mobile intra-arterial septum Echo: 11/12/2017:([facility] . Atrial fib. EF 55-60 percent. [...] te pulmonary hypertension, RVSP 50.90 mmHg. Trace ME. No pericardial effusion. IVC WNL, C CARPENTER REFRIGERATOR normal. 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 Rate 92 bpm, QRS 92 ms, QTC 4 30 ms, wondering baseline, tracing personally reviewed by me E K10/19/2018: NS rhythm, PACs, A. fib at 85 bpm, ME 236 ms, QRS 94 ms, QTC 430 ms burt negrete personally reviewed by me, also had atrial fib with controlled ventricular response at 62 bpm captured when EKG tracing allowed to run LABS Labs: 03/31/2018: BMP: Sodium 139, potassium 3.9, chloride 95, glucose 96, BUN 20, creatinin e 0.69, GFR 109 Labs: 03/27/2018:( [facility] ER) CMP: Sodium 134, potassium 5.7, [...] hematocrit 40.8, plate lets 298. Labs: 09/30/2018: [facility] ER: CMP: Sodium 131, potassium 4.9, chloride [...] 4.56, hemoglobin 14.5, hematocrit 44.6, platelets 221 ASSESSMENT & PLAN: He was here today with his son for 3 month follow-up, as well and recent report for weig ht gain and increased shortness of breath. He has problems as detailed below with significant co morbidities, and is a DNR/DNI. His dry weight is close to 138 pounds, and his weight today is 149 pounds, which is up 6 pounds since I saw him last. Though his activity tolerance is much improved, as now ambulating independently with his wa lker, he seems to have a little more central edema, though no peripheral edema, and he has n ot noticed any change to his weight since I increased his torsemide to 15 mg last week. His labs performed on March 25 are detailed above, CMP is normal except for mildly elev ated potassium 5.3, which may be due to hemolysis, and his CBC with hematocrit and platelet count, but the lipid panel that I had ordered does not seem to have been performed. I discussed this with him and his son today, and have increased his torsemide to 20 mg d aily, to be dose as Torsemide 10 mg in the morning, and 10 mg at 2 PM in the afternoon. I made no other changes to his cardiac medications today, and he should continue aspirin 81 mg daily for coronary artery disease, atorvastatin 10 mg nightly for hyperlipidemia, met oprolol tartrate 12.5 mg twice daily for atrial fibrillation and heart failure( which should be held for heart rate less than 50, or systolic blood pressure less than 100), spironolact one 25 mg twice daily for heart failure, and now torsemide 10 mg at 8 AM and [...] daily walki ng of 15-30 minutes daily ,and he has improved since I saw him last, as he is now able to a mbulate again with a walker instead of a wheelchair, and for prolonged periods of time. He looked bright and alert today, and about the best that I had seen him, has not had an y recent hospitalizations . I will see him back on May 06, 2019, and he will see Dr. Lloyd on May 19, nd I have ordered a BMP to be performed prior to seeing me back with copies to be sent, with copies to be sent to his PCP, Dr. Jones. 1. 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 History of non-ST elevation myocardial infarction (NSTEMI) 3. Chronic diastolic heart failure (HCC) 4. Persistent atrial fibrillation (HCC) 5. Chronic anticoagulation 6. Encounter for monitoring diuretic therapy 7. Essential hypertension 8. Mixed hyperlipidemia 9. Moderate mitral regurgitation by prior echocardiogram 10. Stage 3 chronic kidney disease (HCC) 11. Other secondary pulmonary hypertension (HCC) 12. 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 Chronic obstructive pulmonary disease, unspecified COPD type (HCC) 14. Chronic respiratory failure with hypoxia, on home O2 therapy (HCC) 15. Hyperkalemia Orders Placed This Encounter Procedures Basic Metabolic Panel The following portions of the patient's history [...] Taylor BARRETO [facility] Cardiology 03/29/2019 docume nted in this encounter Plan of Treatment +--------+---------+ + + + | Date | Type | Specialty | Care Team | Description | +--------+---------+ + + + | 06/22/ | Office | Cardiology | Jody Lebron | | | 2019 | Visit | | [address] | | | | | | [address] | | | | | | [place] [address] | | | | | | [phone] | | | | | | | | +--------+---------+ + + + documented as of this encounter Visit Diagnoses + + | Diagnosis | + + | Coronary artery disease of lytton artery of lyt[place] heart with stable angina pectoris | | (HCC) - Primary | + + | History of non-ST elevation myocardial infarction (NSTEMI) Old myocardial infarction | + + | Chronic diastolic heart failure (HCC) Chronic diastolic heart failure | + + | Persistent atrial fibrillation (HCC) Atrial fibrillation | + + | Chronic [...] O2 therapy (HCC) | + + | Hyperkalemia Hyperpotassemia | + + documented in this encounter
--- OUTSIDE RECORDS SUMMARY | ~2020-02-22 | XMS | Encounter Summary ---
Demographics + + + | Address | [address] | | | [place] [address] | + + + | Home Phone [...] ECON | Unknown | | | in [facility]) | | | | + + +---------+ + Care Team Providers + +------+ + | Care Homicide Squad Lieutenant Name | Role | Phone | + +------+ + PCP | Unavailable | + +------+ + Encounter Details +--------+ + + + + | Date | Type | Department | Care Team | Description | +--------+ + + + + | 11/11/ | Hospital | [facility] | Tae Donaldson | COPD with acute | | 2018 - | Encounter | [facility] | Norm Fonseca MD [address] | exacerbation ([facility]); | | | | CARE [address]LO[address] | [address] | Acute pulmonary | | 11/14/ | | [address] | [place] [address] | edema ([facility]); T12 | | 2018 | | [place], [place] | [phone] | compression fracture | | | | [address] | | ([facility]); Acute on | | | | [phone] | | chronic congestive | | | | | | heart failure, | | | | | | unspecified heart | | | | | | failure type ([facility]); | | | | | | Multiple falls; | | | | | | Intractable low back | | | | | | pain; Shortness of | | | | | | breath; Atrial | | | | | | fibrillation with | | | | | | RVR ([facility]) | +--------+ + + + [...] Date of Service: 11/14/17 1009 Status: Signed Side Stitcher: James North DO (Physician) [facility] Service: Hospitalist Discharge Summary Date of Admission: 11/11/2017 Date of Discharge: 11/14/2017 To [facility] with Dr Jain Discharge Provider: James North [...] MD [address] [place] [id number] Enzo Knox MD [address] [place] [address] Medication List CHANGE how you take these [...] 11/14/171115 Date of Service: 11/14/171112 Status: Signed Side Stitcher: Niranjan Espinoza RN (Registered Nurse) Report called and given to [facility] nurse Concepcion. Albaro arias RN reviewed AVS with patient and family. To be transported down to [facility] by our nursing staff. onver kelin Transaction, Provider Unknown - 11/14/2017 11:07 AM PDT Nurse Progress Note by Albaro Rodriguez RN at 11/14/17 1107 Author: Albaro Rodriguez RN Service: (none) Author Type: Registered Nurse Filed: 11/14/17 1109 Date of Service: 11/14/17 1107 Status: Signed Side Stitcher: Albaro Rodriguez RN (Registered Nurse) Discharge teaching [...] Mitzi Garber CMA Service: (none) Author Type: Crepe Sole Scourer Filed: 11/14/17 1054 Date of Service: 11/14/17 1053 Status: Signed Side Stitcher: Mitzi Garber CMA (Crepe Sole Scourer) GPS- Patient enrolled. Will follow for appointments once DC from [facility]. Shena Maxwell PT - 11/14/2017 8:45 AM PDT Therapy Progress Note by Shena Escudero PT at 11/14/17 0845 Author: Shena Escudero PT Service: (none) Author Type: Physical Therapist Filed: 11/14/17 1205 Date of Service: 11/14/17 0845 Status: Signed Side Stitcher: Shena Escudero PT (Physical Therapist) PHYSICAL THERAPY TREATMENT NOTE PT Received On: 11/14/17 Reason for Treatment: Other (comment) (compression fx) Requires PT Follow Up: Yes Follow up PT Only?: No Assistance Required: 1 person Process Control Board Operator Needed: No Recommendations: IRF Barriers to Discharge: Physical Deficits Impacting Functional [place], Self-care Defic its Impacting Functional [place], Equipment Needs (see comment) Plan Treatment/Interventions: Continue [...] 11/13/171625 Date of Service: 11/13/171624 Status: Signed Side Stitcher: Jane Finch RN (Registered Nurse) Discharge Planning: CM attended Hospitalist rounding, pt likely to need IPR or SNF, ADC simona n TBD. ames North DO - 11/13/2017 2:26 PM PDTFormatting of this note might be different from the shaneka amy. Progress Notes by James North DO at 11/13/17 1429 Author: James North DO Service: Hospitalist Author Type: Physician Filed: 11/13/17 1428 Date of Service: 11/13/171425 Status: Signed Side Stitcher: James North DO (Physician) PROGRESS NOTE 11/13/2017 [...] Date of Service: 11/12/17 161 Status: Signed Side Stitcher: Ana Maria Kuo RN (Registered Nurse) 11/12/17 [...] Oriented Prior functional status independent Power of Furnace Reliner No Anticipated Discharge Plan Post Acute Care Needs None at this time Plan communicated to patient/family Yes Resources Financial concerns Yes (ability to afford an [facility] or caregivers) Transportation issues No Patient/Family concerns [...] Pt fitted for support back brace from [facility] . Patient's PCP is: Eze Rice (planning on retired) Patient's insurance: Medicare/[facility] Coverage concerns: none Medication coverage/concerns: none Rx Bedside Delivery: Community resources utilized / needed: Pt needing assistance at home. Possibly HHS, discu ssed caregiver options. Family lives in [place], [place]. Pt lives in [place] and is resist ant to move to [facility] at this time. Pt concerned he can [...] days. CM to follow up with Dora-daughter ([phone]) about family assistance with home assistance. In current area he is relying on friends for assistance. Najma Kuo RN,BSN,CM BrowJames barney DO - 11/12/2017 11:39 AM PDTFormatting of this note might be different from the shaneka gicon. Progress Notes by James North DO at 11/12/17 1130 Author: James North DO Service: Hospitalist Author Type: Physician Filed: 11/12/17 1142 Date of Service: 11/12/17 1139 Status: Signed Side Stitcher: James North DO (Physician) PROGRESS NOTE 11/12/2017 [...] Date of Service: 11/12/17 1032 Status: Signed Side Stitcher: Dulce Sanders PT (Physical Therapist) 11/12/17 1032 [...] 11/12/17239 Date of Service: 11/12/17239 Status: Signed Side Stitcher: Ian Hussein RPH (Pharmacist) Note ccl 70.1ml/min meds reviewed pharmacy will follow [facility] 0240 docume nted in this encounter H&P Notes Tae Donaldson MD - 11/11/2017 11:26 PM PDTFormatting of this note might be diff erent from the original. H&P by Tae Donaldson MD at 11/11/172325 Author: Tae Donaldson MD Service: Hospitalist Author Type: Physician Filed: 11/12/17249 Date of Service: 11/11/172325 Status: Signed Side Stitcher: Tae Donaldson MD (Physician) [facility] Service: Hospitalist Admission History & Physical Date [...] Nov 11 2017 7:37PM Referring Provider Line: [phone] ID: [id number] Ct L-spine Without Contrast Result [...] severe (HCC) Chronic respiratory failure with hypoxia ([facility]) ASSESSMENT & PLAN Patient Active [...] old Plan: As above T12 compression fracture ([facility]) (09/19/2017) Assessment: New Plan: dded lidocaine patch to oral and IV pain medication, PT consult , OT consult, Dr. Micah lanier for TLSO brace, Robaxin 1500 mg qid, Percocet prn, Chronic atrial fibrillation ([facility]) (09/19/2017) Assessment: heart rate not well controlled Plan: digoxin 25 g twice and then restart his digoxin pill 0.125 mg daily, increase Car dizem to 240 mg orally daily, adjust as needed. Chronic respiratory failure with hypoxia/COPD ([facility]) (10/21/2017) Assessment: Exacerbated by the [...] care with other providers well as Computerized Database Admin. Other recommendations for management of this patient [...] Inpatient to Acute Care Floor Dictation software, [employer], used which may contain error for similar [...] 11/12/17137 Date of Service: 11/12/17137 Status: Signed Side Stitcher: Jadon Sinha RN (Registered Nurse) Report to Naina DOSS 6RPa Jadon Sinha RN 11/12/17137 odine z, Eddie Fernandez MD - 11/11/2017 8:56 PM PDT ED Provider Notes by Eddie Rondon DO at 11/11/172055 Author: Eddie Rondon DO Service: Emergency Department Author Type: Physician Filed: 11/12/17 0329 Date of Service: 11/11/172055 Status: Signed Side Stitcher: Eddie Rondon DO (Physician) [facility] Department of Emergency Medicine 8:56 PM 11/11/2017 [...] minimal exertion. 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 Patient states his party supply specialist discontinued his Lasix and lisinopril approximately 5 weeks ago and starte d him on diltiazem. 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 Nursing notes reviewed for chief complaint, medications, clinical presentation and vital si gns Laboratory Evaluation Results Procedure Component Value Ref Range Date/Time Cardiac Panel [[id number]] (Abnormal) Collected: 11/11/171907 Order Status: Completed Updated: [...] ng/mL CK-MB Index 4.0 Troponin I, Lab [[id number]] Collected: 11/11/171907 Order Status: Completed Specimen: Blood Updated: 11/11/171950 TROPONIN I 0.033 0.00 - 0.10 ng/mL BNP [[id number]] (Abnormal) Collected: 11/11/171907 Order Status: Completed Specimen: [...] 11 2017 7:37PM Referring Provider Teresita ne: [phone] ID: [id number] Narrative: EXAM: CHEST RADIOGRAPHY EXAM [...] with RVR at 126bpm Normal QRS and Ulman Normal QT and QTc Normal ST/T without [...] recognition system. The possibility of "sound alike" competitive shopper errors, addition and/or deletions may occur. If [...] 11/11/171854 Date of Service: 11/11/171852 Status: Signed Side Stitcher: Savanah Munroe RN (Registered Nurse) Pt currently [...] 11/11/171845 Date of Service: 11/11/171842 Status: Signed Side Stitcher: Gregory Bernard PA-C (Physician Home Care Music Therapist) Cosigner: Bang Allen DO at 11/11/171850 Procedures [...] 1528 Date of Service: 11/11/171527 Status: Signed Side Stitcher: Ronan Koenig RN (Registered Nurse) [email or web address]@home docume nted in this encounter Miscellaneous Notes Plan of Care - Conversion Transaction, Provider Unknown - 11/14/2017 4:29 AM PDT Plan of Care by Enzo Bassett RN at 11/14/17428 Author: Enzo Bassett RN Service: (none) Author Type: Registered Nurse Filed: 11/14/17428 Date of Service: 11/14/17428 Status: Signed Side Stitcher: Enzo Bassett RN (Registered Nurse) Problem: Pain [...] 11/13/172210 Date of Service: 11/13/172208 Status: Signed Side Stitcher: Wing Micah Jain MD (Physician) IPR Pre-admission Screening Etiology of Impairment: Debility 16 Debility (non-cardiac, non-pulmonary) Date of onset: Type/Date of surgery:; Prior level of function Level of [place]: Modified independent with functional mobility, Modified independent with ADLs, Assist with IADLs, 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 Wing Demetra Jain MD 11/13/2017 10:11 PM lan of Care - Conversi on Transaction, Provider Unknown - 11/13/2017 1:15 PM PDTFormatting of this note might be d ifferent from the original. Plan of Care by Niranjan Espinoza RN at 11/13/171314 Author: Niranjan Espinoza RN Service: (none) Author Type: Registered Nurse Filed: 11/13/171314 Date of Service: 11/13/171314 Status: Signed Side Stitcher: Niranjan Espinoza RN (Registered Nurse) Problem: Safety [...] Author: SN Zari Service: (none) Author Type: Hospital Admissions Clerk Filed: 11/13/171108 Date of Service: 11/13/171108 Status: Signed Side Stitcher: SN Zari (Hospital Admissions Clerk) Problem: Safety Goal: Patient will be injury [...] the original. Plan of Care by Enzo Bsasett RN at 11/12/172227 Author: Enzo Bassett RN Service: (none) Author Type: Registered Nurse Filed: 11/12/172227 Date of Service: 11/12/172227 Status: Signed Side Stitcher: Enzo Bassett RN (Registered Nurse) Problem: Safety [...] 11/12/171534 Date of Service: 11/12/171534 Status: Signed Side Stitcher: Maria Dolores Morrissey RN (Registered Nurse) Problem: [...] 11/12/172025 Date of Service: 11/12/171499 Status: Signed Side Stitcher: Dulce Sanders PT (Physical Therapist) PHYSICAL THERAPY EVALUATION PT Received On: 11/12/17 Reason for Treatment: Other (comment) (compression fx) Requires PT Follow Up: Awaiting tx order Follow up PT Only?: No Focus for Next Treatment: Patient Education (see comment), Formal Balance Assessment, Bed M obility Technique, Transfer Technique (gait progression, brace education/donning ) PT Eval/Reassessment Date: 11/12/17 Assistance Required: 1 person, 2 person Process Control Board Operator Needed: No Recommendations: IRF, Acute OT Barriers to Discharge: Physical Deficits Impacting Functional [place], Self-care Defic its Impacting Functional [place], Equipment Needs (see comment), Lack of Family [...] Equipment: Cane quad Prior Function Level of [place]: Modified independent with functional mobility, Modified independent with ADLs, Assist with IADLs, 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, 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 pineda) Falls in Past Year: Yes Lives With: Alone Receives Help From: (son lives in [place], [place]) ADL Assistance: Independent Home ADL's: Need [...] Assistive Device: Least restricitve device Low - 91738 Moderate - 76083 High - 91722 History [] no personal factors &/or comorbidities [x] 1-2 personal factors &/or comorbidit ies [] 3 or more personal factors &/or comorbidities Examination [] 1-2 elements [x] 3 elements [] 4 or more elements Clinical Presentation [] stable [x] evolving [] unstable Clinical Decision Making Complexity: [] Low 79560 [x] Moderate 57161 [] High 9 7163 lan o f Care - Conversion Transaction, Provider Unknown - 11/12/2017 3:27 AM PDTFormatting of thi s note might be different from the original. Plan of Care by Naina Lane RN at 11/12/17326 Author: Naina Lane RN Service: (none) Author Type: Registered Nurse Filed: 11/12/17326 Date of Service: 11/12/17326 Status: Signed Side Stitcher: Naina Lane RN (Registered Nurse) Problem: Pain [...] TERAN | | | | | | [place] [address] | | | | | | [phone] | | | | | | | [...] | | | | | performed at [facility] | | | | | | [address];[place], [place] | | | | | | [address] | | | | + + + [...] | | | | | performed at [facility], [address] | | | | | [address] [facility], | | | | | | [place] [address] | | | | | |ANISO | | | | | |1+ | | | | | |OVALO | | | | | |NORMAL PLT MORPH | | | | | |Testing performed at [facility], [address] [place] [address] | | | | | | | [...] | | | | | | at [facility], [address] | | | | | | [facility], | | | | | | [place] [address] | | | | + + + [...] | | | | | performed at [facility];[address] | | | | | | [address];[place] | | | | | | [address] | | | | + + + [...] | | without stenosis. 7. There is iiks-ol-pzfmfrzq aortic regurgitation. | | | 8. Moderate [...] | sclerosis without stenosis. 7. There is afww-is-qnjmeetg aortic | | | regurgitation. 8. Moderate [...] | without stenosis. Aortic Valve: There is cvdt-qg-fbdwgmpm aortic | | | regurgitation. Aortic Valve: [...] | | A4C: 7.96 cm AR Dec Burleigh: 2.62 m/s2 AR Dec Time: 1693.47 | [...] TR | | | Vmax: 3.46 m/s Environmental Scientist: Authenticated by: Flaco Murrell | | | [...] aortic valve sclerosis without stenosis.7. There is bxbh-im-bqpojkzy aortic | | regurgitation.8. Moderate mitral regurgitation [...] | | without stenosis.Aortic Valve: There is zwct-ml-xxtdapdd aortic regurgitation.Aortic | | Valve: There is [...] | Index (A-L): 106.43 ml/m2LAAs A2C: 41.41 [id number] A-L A2C: 191.03 mlLALs A2C: | | 7.62 cmLAAs A4C: 43.61 [id number] A-L A4C: 202.64 mlLALs A4C: 7.96 cmAR Dec Burleigh: | | 2.62 m/s2AR Dec Time: 1693.47 msAR maxP.94 mmHgAR PHT: 491.10 msAR Vmax: | | 4.44 m/Roxy maxP.42 mmHgAV meanP.15 mmHgAV Vmax: 1.36 m/Roxy Vmean: 0.95 | | m/Roxy VTI: 25.11 cmAVA Vmax: 2.85 cm2AVA (VTI): 2.88 [id number] Vmax: 0.00 | | cm2/m2AVAI (VTI): 0.00 [...] maxP.90 mmHgTR Vmax: 3.46 m/s | | Environmental Scientist: JRAuthenticated by: Flaco YBARRAepradha Date/Time: 11-15-2017 11:53:11 [...] sclerosis | | without stenosis.7. There is arlp-st-dzflxgbl aortic regurgitation.8. Moderate mitral | | regurgitation [...] |LALs A4C: 7.96 cm | |AR Dec Burleigh: 2.62 m/s2 | |AR Dec Time: 1693.47 [...] |TR Vmax: 3.46 m/s | | | |Environmental Scientist: JR | |Authenticated by: Flaco Murrell MD [...] sclerosis without stenosis. | |7. There is uhds-aj-acsoyfyc aortic regurgitation. | |8. Moderate mitral regurgitation [...] | | | | | | BY DATAllegroREAD BACK RESULTS | | | | | | VERIFIEDTesting | | | | | | performed at [facility];[address] | | | | | | [address];[place], [place] | | | | | | [address] | | | | + + + [...] | | | | | performed at [facility], [address] | | [address] | [address] [facility], | | | | | | [place] [address] | | | | | |MICRO | | | | | |1+ | | | | | |OVALO | | | | | |NORMAL PLT MORPH | | | | | |Testing performed at [facility], [address] [facility], [place] [address] | | | | | | | [...] EXTERNAL | | | | performed at [facility], [address] | | LAB | | | | [address], | | | | | | [place] [address] | | | | + + + [...] | | | | | [place] [address] | | | | + + + [...] | | | | | | at [facility], [address] | | | | | | [address], | | | | | | [place] [address] | | | | + + + [...] | | | | | | at [facility];[address] [place] [address] | | | | | | [facility];[place] [address] | | | | + + + [...] LAB | | | | performed at [facility], [address] | | | | | | [address], | | | | | | [place] [address] | | | | | |Testing performed at [facility], [address] [place] [address] | | | | | | | [...] EXTERNAL | | | | performed at [facility], [address] | | LAB | | | | [address], | | | | | | [place] [address] | | | | + + + [...] EXTERNAL | | | | performed at [facility], [address] | | LAB | | | | [address], | | | | | | [place] [address] | | | | + + + [...] | | | | | | at [facility], [address] | | | | | | [facility], | | | | | | [place] [address] | | | | + + + [...] | | | | | ONLY, -COMPUTER (113), | | | | | | slot editor Basilio Alatorre | | | | | | Ced (123) on 11/13/2017 | | | | | | 3:35:29 AM | | | | + + + + + + + + | Specimen | + + | | + + + + + | Narrative | Performed At | + + + | Historically converted procedure from [facility] | EXTERNAL LAB | + + + [...] - 02/17/2019 5:56 AM PDT RUDY Elizondo [id number] years | | Male11/11/2017 9:51 PMCT LUMBAR [...] | | | | | | ACUTE MS Testing | | | | | | performed at [facility];[address] | | | | | | [facility];[place], [place] | | | | | | [address] | | | | + + + [...] EXTERNAL | | | | performed at [facility];[address] | | LAB | | | | [address];[place] | | | | | | [address] | | | | + + + [...] 7:37PM | | | Referring Provider Line: [phone] ID: [id number] | | + + + [...] 2017 7:37PM Referring Provider | | Line: [phone] ID: [id number] | | | |TECHNIQUE: 2 [...] 11 2017 7:37PM Referring Provider Li ne: [phone] ID: [id number] | + + documented in [...]
--- OUTSIDE RECORDS SUMMARY | ~2020-02-22 | XMS | Encounter Summary ---
Demographics + + + | Address | [address] | | | [place] [address] | + + + | Home Phone | | + + + | Preferred Language | Unknown | + + + | Marital Status | | + + + | Presybeterian Affiliation | 1077 | + + + | Race | White | + + + | Ethnic Group | Not or | + + + Author + + + | Author | [facility] | | | and [place] | + + + | Organization | [facility] | | | [...] Unknown | | | in [facility]) | | | | + + +---------+ + Care Team Providers + +------+ + | Care Football Coach Name | Role | Phone | + [...] + + | 03/29/ | Office | [facility] | Jody Lebron | Coronary artery | | 2019 | Visit | CARDIOLOGY REGGIE | [address] | disease of shoalwater | | | | [address] | [place] | artery of shoalwater | | | | [address] | [place] [address] | heart with stable | | | | [place] | [phone] | angina pectoris | | | | [address] | | (HCC) (Primary Dx); | | | | [phone] | | History of non-ST | | [...] disease | | | | | | ([facility]); Other | | | | | | secondary pulmonary | | | | | | hypertension ([facility]); | | | | | | 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 He was previously seen patient of and last seen by him 10/16/2017, and also has b een seen by heart failure CUSTOMER CARE REPRESENTATIVE, Cornelia Escudero , last on 01/2018. He has now established care with Dr. Godwin , who is his local primary rubber vulcanizing machine operator, an d last seen by him in [...] on Eliquis 2.5 mg twice daily for [id number] VASC score is 5 (CHF, a ge, vasc dis,) . Though previously documented as valvular atrial fibrillation , he has not undergone valve surgery, either repair or replacement, and does not have severe rheumatic mitral stenosis. His current and previous testing and procedures are detailed below. He was previously hospitalized on November 1405/2018 until December 022017 at [facility] for increa sed dyspnea, edema, and back pain due to acute heart failure and new T12 compression fractur e felt heart failure exacerbation secondary to stopping diuretic and fall. He was also hospitalized [facility] on June 10 - June 14 for acute decompensa tion of chronic diastolic heart failure and iron deficiency anemia as well as exacerbation o f his chronic respiratory failure, and chronic A. fib . He was admitted again to [facility] September 30 - October 04, [...] last week with his son walking around [facility] , and running other errands for considerable [...] fractures, and O2 and tolerates. Lives in [place] [facility]. Son lives nearby. Use d to live in [place] [facility] Medications Prior to Visit Medication Sig [...] branch/ramus intermedius branch, and complete occlusion RCA. Mlaf-mx-lknokurx involvement of the rest of the system.Good [...] atrial fib is 73 bpm, old septal [place]. Nonspecific ST and T-wave abnormalities. Stress heart [...] Valsalva, 41 mm. Mobile intra-arterial septum Echo: 11/12/2017:([facility]) . Atrial fib. EF 55-60 [...] te pulmonary hypertension, RVSP 50.90 mmHg. Trace MI. No pericardial effusion. IVC WNL, C CYBER SECURITY INSTRUCTOR normal. 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 Rate 92 bpm, QRS 92 ms, QTC 4 30 ms, wondering baseline, tracing personally reviewed by me E K10/19/2018: NS rhythm, PACs, A. fib at 85 bpm, MI 236 ms, QRS 94 ms, QTC 430 ms burt negrete personally reviewed by me, also had atrial fib with controlled ventricular response at 62 bpm captured when EKG tracing allowed to run LABS Labs: 03/31/2018: BMP: Sodium 139, potassium 3.9, chloride 95, glucose 96, BUN 20, creatinin e 0.69, GFR 109 Labs: 03/27/2018:( [facility]) CMP: Sodium 134, potassium 5.7, [...] hematocrit 40.8, plate lets 298. Labs: 09/30/2018: [facility]: CMP: Sodium 131, potassium [...] Dr. Jones. 1. 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 Problem list. 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
--- OUTSIDE RECORDS SUMMARY | ~2020-02-22 | XMS | Encounter Summary ---
Demographics + + + | Address | [address] | | | [place] [address] | + + + | Home Phone | | + + + | Preferred Language | Unknown | + + + | Marital Status | | + + + | Mosque Affiliation | 1077 | + + + | Race | White | + + + | Ethnic Group | Not or | + + + Author + + + | Author | [facility] | | | and [place] | + + + | Organization | [facility] | | | [...] ECON | Unknown | | | in [facility]) | | | | + + +---------+ + Care Team Providers + +------+ + | Care Component Assembler Name | Role | Phone | + +------+ + PCP | Unavailable | + +------+ + Encounter Details +--------+ + + + + | Date | Type | Department | Care Team | Description | +--------+ + + + + | 11/13/ | Hospital | [facility] | Conversion | Facet arthropathy, | | 2016 | Encounter | [facility] | Transaction, | lumbar; Lumbar | | | | [address] | Provider Unknown | degenerative disc | | | | [address] [place], [place] | [phone] | disease; Sacroiliac | | | | [address] | | joint pain; | | | | [phone] | | Spondylolisthesis of | | | | | | lumbar region | +--------+ + + + + Social [...] TERAN | | | | | | [place] [address] | | | | | | [phone] | | | | | | | | +--------+---------+ + + + documented as of this encounter Procedures + +--------+ + + + | Procedure Name | Priori | Date/Time | Associated Diagnosis | Comments | | | ty | | | | + +--------+ + + + | XR LUMBAR SPINE 2 OR | Routin | 11/14/2015 | | Results for this | | 3 VW | e | 12:43 PM | | procedure are in the | | | | PDT | | results section. | + +--------+ + + + | XR SPINE SURVEY 2 OR | Routin | 11/14/2015 | | Results for this | | 3 VIEWS | e | 12:43 PM | | procedure are in the | | | | PDT | | results section. | + +--------+ + + + documented in this encounter Results XR Spine Survey 2 or 3 Vws (11/14/2015 12:43 PM PDT) + + | Specimen | + + | | + + + + + | Impressions | Performed At | + + + | 1. 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 2. Chronic compression deformity of | | | the L1 vertebral body. | | + + + + + + | Narrative | Performed At | + + + | [facility] XR SCOLIOSIS SPINE AP AND LATERAL HISTORY: Lumbar | | | degenerative disc disease with facet arthropathy and sacroiliac pain. | | | TECHNIQUE: Standing anterior and lateral views of the spine. | | | COMPARISON: None. FINDINGS: Dextroconvex convex scoliotic | | | curvature lumbar spine with Gonzalez angle of 25 degrees. Severe | | | compression deformity L1 vertebral body. Multilevel degenerative | | | change lumbar spine with disc space narrowing, degenerative endplate | | | change, and endplate spurring. Levoconvex curvature at the | | | cervicothoracic junction. Coronal balance is normal. Anterior sagittal | | | balance measuring 8.8 cm. Pleural thickening noted on the right side | | | of the chest. | | + + + + + | Procedure Note | + + | Kendell, Armando Conversion - 02/18/2019 1:20 PM PDT [facility] SCOLIOSIS SPINE AP AND | | LATERAL HISTORY:Lumbar degenerative disc disease with facet arthropathy and sacroiliac | | pain. TECHNIQUE:Standing anterior and lateral views of the spine. COMPARISON:None. | | FINDINGS:Dextroconvex convex scoliotic curvature lumbar spine with Gonzalez angle of 25 | | degrees. Severe compression deformity L1 vertebral body. Multilevel degenerative change | | lumbar spine with disc space narrowing, degenerative endplate change, and endplate | | spurring. Levoconvex curvature at the cervicothoracic junction. Coronal balance is | | normal. Anterior sagittal balance measuring 8.8 cm. Pleural thickening noted on the | | right side of the chest. IMPRESSION: 1. Dextroconvex scoliotic curvature of the lumbar | | spine with multilevel degenerative change.2. Chronic compression deformity of the L1 | | vertebral body. | | | |FINDINGS: | |Dextroconvex convex scoliotic curvature lumbar spine with Gonzalez angle of 25 degrees. Severe compression deformity L1 vertebral body. Multilevel degenerative change lumbar spine with di sc space narrowing, degenerative endplate change, and endplate | |spurring. Levoconvex curvature at the cervicothoracic junction. Coronal balance is normal. Anterior sagittal balance measuring 8.8 cm. Pleural thickening noted on the right side of th e chest. | | | |IMPRESSION: | |1. 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 | |2. Chronic compression deformity of the L1 vertebral body. | | | | | + + XR Lumbar Spine 2 or 3 Vw (11/14/2015 12:43 PM PDT) + + | Specimen | + + | | + + + + + | Impressions | Performed At | + + + | 1. Severe multilevel degenerative change of the lumbar spine. 2. | | | Severe compression deformity L1 vertebral body, stable | | | | | + + + + + + | Narrative | Performed At | + + + | [facility] CAR[facility] LUMBAR SPINE LIMITED 2-3 VIEW HISTORY: | | | Degenerative disc disease with facet arthropathy and sacroiliac joint | | | pain TECHNIQUE: Lateral flexion and extension images of the | | | lumbar spine. COMPARISON: 11/14/2015 FINDINGS: Compression | | | deformity of the L1 vertebral body with approximately 70% loss in | | | anterior height, stable. Multilevel degenerative change of the lumbar | | | spine with disc space narrowing, degenerative endplate change, | | | endplate spurring. Multilevel degenerative facet disease greatest at | | | L3-S1. Mild anterior spondylolisthesis of L4 on L5 measuring 2.7 | | | mm with extension and 5.4 mm with flexion. Retrolisthesis of L2 on L3 | | | measuring 4.1 mm with extension and 4.3 mm with flexion. Mild | | | retrolisthesis of L1 on L2 measuring 4.5 mm with extension and 4.2 | | | mm with flexion. | | + + + + + | Procedure Note | + + | Kendell, Rad Conversion - 02/18/2019 1:20 PM PDT [facility] LUMBAR SPINE LIMITED 2-3 | | VIEW HISTORY:Degenerative disc disease with facet arthropathy and sacroiliac joint pain | | TECHNIQUE:Lateral flexion and extension images of the lumbar spine. | | COMPARISON:11/14/2015 FINDINGS:Compression deformity of the L1 vertebral body with | | approximately 70% loss in anterior height, stable. Multilevel degenerative change of the | | lumbar spine with disc space narrowing, degenerative endplate change, endplate | | spurring. Multilevel degenerative facet disease greatest at L3-S1. Mild anterior | | spondylolisthesis of L4 on L5 measuring 2.7 mm with extension and 5.4 mm with flexion. | | Retrolisthesis of L2 on L3 measuring 4.1 mm with extension and 4.3 mm with flexion. Mild | | retrolisthesis of L1 on L2 measuring 4.5 mm with extension and 4.2 mm with flexion. | | IMPRESSION: 1. Severe multilevel degenerative change of the lumbar spine.2. Severe | | compression deformity L1 vertebral body, stable | |Compression deformity of the L1 vertebral body with approximately 70% loss in anterior heig ht, stable. Multilevel degenerative change of the lumbar spine with disc space narrowing, de generative endplate change, endplate | |spurring. Multilevel degenerative | |facet disease greatest at L3-S1. | | | |Mild anterior spondylolisthesis of L4 on L5 measuring 2.7 mm with extension and 5.4 mm with flexion. Retrolisthesis of L2 on L3 measuring 4.1 mm with extension and 4.3 mm with flexion . Mild retrolisthesis of L1 | |on L2 measuring 4.5 mm with extension and | |4.2 mm with flexion. | | | |IMPRESSION: | |1. Severe multilevel degenerative change of the lumbar spine. | |2. 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
--- OUTSIDE RECORDS SUMMARY | ~2020-02-22 | XMS | Encounter Summary ---
Demographics + + + | Address | [address] | | | [place] [address] | + + + | Home Phone | | + + + | Preferred Language | Unknown | + + + | Marital Status | | + + + | Faith Affiliation | 1077 | + + + | Race | White | + + + | Ethnic Group | Not or | + + + Author + + + | Author | [facility] | | | and [place] | + + + | Organization | [facility] | | | [...] ECON | Unknown | | | in [facility]) | | | | + + +---------+ + Care Team Providers + +------+ + | Care Dairy Manager Name | Role | Phone | + [...] | RADHA | | | | | ([facility]) | [facility] [place] | [place] | | | | | Moderate | [address] | [address] | | | | | mitral | Phone: | Phone: | | | | | regurgitatio | [phone] | [phone] | | | | | n by prior | Fax: | Fax: | | | | | echocardiogr | [phone] | [phone] | | | | | am Chronic | | | | | | | respiratory | | | | | | | failure with | | | | | | | hypoxia, on | | | | | | | home O2 | | | | | | | therapy | | | | | | | ([facility]) Stage | | | | | | | 3 chronic | | | | | | | kidney | | | | | | | disease | | | | | | | ([facility]) | | | +--------+ + + + + + Reason for Visit + + + | Reason | Comments | + + + | Follow-up | | + + + Encounter Details +--------+---------+ + + + | Date | Type | Department | Care Team | Description | +--------+---------+ + + + | 05/19/ | Office | [facility] | Sera Keating, | Chronic diastolic | | 2019 | Visit | CARDIOLOGY REGGIE | MD Bozena BENITEZ | heart failure (HCC) | | | | [address] | [place], [place] | (Primary Dx); | | | | [address] | [address] | Moderate mitral | | | | [place] | | regurgitation by | | | | [address] | | prior | | | | [phone] | | echocardiogram; | | | | [...] (A) 06/25/2018 GLUF 96 12/04/2017 EC09/30/2018 From [facility] sinus bradycardia with first-degree AV block. [...] mild disease. LCX mild disease/ first OM BILLET STRAIGHTENER. RCA is BILLET STRAIGHTENER at proximal segment. Left to right collaterals. [...] TERAN | | | | | | [place] [address] | | | | | | [phone] | | | | | | | [...] therapy | | | | | | ([facility]) Stage 3 | | | | | [...]
--- OUTSIDE RECORDS SUMMARY | ~2020-02-22 | XMS | Encounter Summary ---
Demographics + + + | Address | [address] | | | [place] [address] | + + + | Home Phone | | + + + | Preferred Language | Unknown | + + + | Marital Status | | + + + | Hindu Affiliation | 1077 | + + + | Race | White | + + + | Ethnic Group | Not or | + + + Author + + + | Author | [facility] | | | and [place] | + + + | Organization | [facility] | | | [...] Team Providers + +------+ + | Care Nursing Service Director Name | Role | Phone | + +------+ + PCP | Unavailable | + +------+ + Encounter Details +--------+ + + + + | Date | Type | Department | Care Team | Description | +--------+ + + + + | 12/25/ | Hospital | [facility] | Conversion | Pain | | 2014 | Encounter | [address] | Transaction, | | | | | [address] | Provider Unknown | | | | | [place], [place] | [phone] | | | | | [address] | | | | | | [phone] | | | +--------+ + + + [...] TERAN | | | | | | [place] [address] | | | | | | [phone] | | | | | | | | +--------+---------+ + + + documented as of this encounter Procedures + +--------+ + + + | Procedure Name | Priori | Date/Time | Associated Diagnosis | Comments | | | ty | | | | + +--------+ + + + | FL C ARM < 1 HOUR | Routin | 11/24/2012 | | Results for this | | | e | 5:53 AM | | procedure are in the | | | | PDT | | results section. | + +--------+ + + + documented in this encounter Results FL C-Arm < 1 Hour (11/24/2012 5:53 AM PDT) + + | Specimen | [...]
--- OUTSIDE RECORDS SUMMARY | ~2020-02-22 | XMS | Encounter Summary ---
Demographics + + + | Address | [address] | | | [place] [address] | + + + | Home Phone | | + + + | Preferred Language | Unknown | + + + | Marital Status | | + + + | Mormon Affiliation | 1077 | + + + [...] | + + +---------+ + | Dora Casarze (Daughter | ECON | Unknown | | | in [facility]) | | | | + + +---------+ + Care Team Providers + +------+ + | Care Photographic Processor Name | Role | Phone | + +------+ + PCP | Unavailable | + +------+ + Encounter Details +--------+ + + + + | Date | Type | Department | Care Team | Description | +--------+ + + + + | 09/08/ | Hospital | [facility] | Conversion | Diagnosis unknown | | 2018 | Encounter | [address] | Transaction, | | | | | [address] | Provider Unknown | | | | | [place], [place] | | | | | | [address] | (Fax) | | | | | [phone] | | | +--------+ + + + [...] TERAN | | | | | | [place] [address] | | | | | | [phone] | | | | | | | [...]
--- OUTSIDE RECORDS SUMMARY | ~2020-02-22 | XMS | Encounter Summary ---
Demographics + + + | Address | [address] | | | [place] [address] | + + + | Home Phone | | + + + | Preferred Language | Unknown | + + + | Marital Status | | + + + | Sikhism Affiliation | 1077 | + + + | Race | White | + + + | Ethnic Group | Not or | + + + Author + + + | Author | [facility] | | | and [place] | + + + | Organization | [facility] | | [...] ECON | Unknown | | | in [facility]) | | | | + + +---------+ + Care Team Providers + +------+ + | Care Zipper Lining Folder Name | Role | Phone | + +------+ + | Nalini Jones MD | PCP | | + +------+ + Encounter Details +--------+ + + + + | Date | Type | Department | Care Team | Description | +--------+ + + + + | 08/22/ | Orders Only | [facility] | Enzo Knox Levi, | | | 2016 | | MUNDO ECHOLS | [address] | | | | | [address] | [place] [address] | | | | | [place], [place] | [phone] | | | | | [address] | | | | | | [phone] | | | +--------+ + + + [...] TERAN | | | | | | [place] [address] | | | | | | [phone] | | | | | | | [...] | There is mild aortic regurgitation. 5. Wpnz-jp-kezdjhys tricuspid | | | regurgitation present. 6. [...] | There is mild aortic regurgitation. 5. Ymqv-ht-djwkoohn tricuspid | | | regurgitation present. 6. [...] | | appears structurally normal. Tricuspid Valve: Nhgf-rf-uehbzqap | | | tricuspid regurgitation present. Tricuspid [...] MV A Kehinde: 0.00 m/s MV Dec Hidalgo: 8.21 m/s2 MV | | | DecT: [...] TR | | | Vmax: 3.20 m/s Pot Runner: MAURICIO Authenticated by: Enzo | | | [...] There is mild aortic regurgitation.5. | | Vwed-ec-coxwmipw tricuspid regurgitation present.6. There is moderate pulmonary [...] | | valve appears structurally normal.Tricuspid Valve: Rejg-ts-pdwdrfxs tricuspid | | regurgitation present.Tricuspid Valve: There [...] | 5.04 cmLVPWd: 1.18 cmLVOT Area: 4.13 [id number] Diam: 2.29 cm%FS: 27.04 | | %EF(Teich): [...] mlLAESV Index (A-L): 102.57 ml/m2LAAs A2C: 45.30 [id number] A-L | | A2C: 225.05 mlLALs A2C: 7.74 cmLAAs A4C: 38.88 yv9PKWTD A-L A4C: 174.31 mlLALs | | A4C: 7.36 cmRAAs: 35.04 vm0IQYPF A-L: 143.71 mlRAESV MOD: 141.58 mlRALs: 7.25 | | cmAo Diam: 4.13 cmLA Diam: 6.87 cmLA/Ao: 1.66AV maxP.96 mmHgAV meanPG: | | 3.07 mmHgAV Vmax: 1.31 m/Roxy Vmean: 0.81 m/Roxy VTI: 18.10 cmAVA Vmax: 2.56 | | cm2AVA (VTI): 2.88 bh8LTYU maxP.69 mmHgLVOT meanP.30 mmHgLVSI Dopp: | | 26.36 ml/m2LVSV Dopp: 52.19 mlLVOT Vmax: 0.81 m/sLVOT Vmean: 0.52 m/sLVOT VTI: | | 12.61 cmMV A Kehinde: 0.00 m/sMV Dec Hidalgo: 8.21 m/s2MV DecT: 114.96 msMV E Kehinde: | | 0.94 m/sMV E/A Ratio: 927.06MV PHT: 33.34 msMVA By PHT: 6.59 ha3Yxhfxw e': 0.08 | | m/sSeptal E/e': 11.30Lateral e': 0.12 m/sLateral E/e': 7.73RAP: 10 mmHgRVSP: | | 51.15 mmHgTR maxP.15 mmHgTR Vmax: 3.20 m/s Pot Runner: DHAuthenticated by: | | Enzo Knox MD, [...] | II).4. There is mild aortic regurgitation.5. Tzrb-gc-lwnjcril tricuspid regurgitation | | present.6. There is [...] A Kehinde: 0.00 m/s | |MV Dec Hidalgo: 8.21 m/s2 | |MV DecT: 114.96 ms [...] |TR Vmax: 3.20 m/s | | | |Pot Runner: | |Authenticated by: Enzo Knox MD, FACC, FACP, [facility] | |Report Date/Time: 08-23-2016 14:29:04 [...] There is mild aortic regurgitation. | |5. Gwnz-bf-zcnzoaeh tricuspid regurgitation present. | |6. There is moderate pulmonary hypertension. | |7. 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 | + + documented in this encounter Visit Diagnoses Not on filedocumented in this encounter"
--- OUTSIDE RECORDS SUMMARY | ~2020-02-22 | XMS | Encounter Summary ---
Demographics + + + | Address | [address] | | | [place] [address] | + + + | Home Phone | | + + + | Preferred Language | Unknown | + + + | Marital Status | | + + + | Church Affiliation | 1077 | + + + | Race | White | + + + | Ethnic Group | Not or | + + + Author + + + | Author | [facility] | | | and [place] | + + + | Organization | [facility] | | | [...] Team Providers + +------+ + | Care Egg Factory Worker Name | Role | Phone | + +------+ + PCP | Unavailable | + +------+ + Encounter Details +--------+ + + + + | Date | Type | Department | Care Team | Description | +--------+ + + + + | 11/12/ | Hospital | [facility] | Timur Londono MD | | | 2011 | Encounter | [facility] | [address], [place] | | | | | [address] | [address] [place], [place] | | | | | [place], [place] | [address] | | | | | [address] | | | | | | [phone] | | | +--------+ + + + [...] Londono MD, Bharath Ambrocio, RN, Pao Barbour, Promotion Writer Referring MD: Eze Rice MD Medicines: Midazolam [...] by the physician, the nurse and the copier repair technician. The procedure was verified in the [...] TERAN | | | | | | [place] [address] | | | | | | [phone] | | | | | | | | +--------+---------+ + + + documented as of this encounter Visit Diagnoses Not on filedocumented in this encounter"
--- OUTSIDE RECORDS SUMMARY | ~2020-02-22 | XMS | Encounter Summary ---
Demographics + + + | Address | [address] | | | [place] [address] | + + + | Home Phone | | + + + | Preferred Language | Unknown | + + + | Marital Status | | + + + | Lutheran Affiliation | 1077 | + + + | Race | White | + + + | Ethnic Group | Not or | + + + Author + + + | Author | [facility] | | | and [place] | + + + | Organization | [facility] | | | and [...] Team Providers + +------+ + | Care Cashier Clerk Name | Role | Phone | + +------+ + | Nalini oJnes MD | PCP | | + +------+ + Reason for Visit + + + | Reason | Comments | + + + | Follow-up | | + + + Encounter Details +--------+---------+ + + + | Date | Type | Department | Care Team | Description | +--------+---------+ + + + | 06/24/ | Office | [facility] | Jody Lebron | Persistent atrial | | 2019 | Visit | CARDIOLOGY [place] | [address] | fibrillation (HCC) | | | | [address] | [address] | (Primary Dx); | | | | [address] | [place] [address] | Coronary artery | | | | [place] | [phone] | disease of [place] | | | | [address] | | artery of [place] | | | | [phone] | | heart with stable | | [...] he also lives in assisted living at [facility]. He was previously been a patient of ,and last seen by him 10/16/2017, and also has been seen by heart failure AUTOMOTIVE QUALITY ENGINEER, Cornelia Escudero , last on 01/2018. He has now established care with Dr. Godwin , who is his local primary brand coordinator, an d last seen by him in [...] on Eliquis 2.5 mg twice daily for [id number] VASC score is 5 (CHF, a ge, vasc dis,) . Though previously documented as valvular atrial fibrillation , he has not undergone valve surgery, either repair or replacement, and does not have severe rheumatic mitral stenosis. His current and previous testing and procedures are detailed below. He was previously hospitalized on November 1405/2018 until December 02[address] [facility] for increa sed dyspnea, edema, and back pain due to acute heart failure and new T12 compression fractur e, and heart failure exacerbation likely secondary to stopping diuretic and fall. He was also hospitalized [facility] on June 10 - June 14, 2018 for acute deco mpensation of chronic diastolic heart failure and iron deficiency anemia as well as exacerba tion of his chronic respiratory failure, and chronic A. fib . He was admitted again to [facility] September 30 - October 04, 2018 [...] well with heart rate controlled and no ocle ges to medications . He referred him [...] fractures, and O2 and tolerates. Lives in [facility] living. Son lives nearby. Use d to live in [place] [facility] Medications Prior to Visit Medication Sig [...] branch/ramus intermedius branch, and complete occlusion RCA. [id number] involvement of the rest of the system.Good [...] atrial fib is 73 bpm, old septal MS. Nonspecific ST and T-wave abnormalities. Stress heart [...] Valsalva, 41 mm. Mobile intra-arterial septum Echo: 11/12/2017[facility] . Atrial fib. EF 55-60 percent. [...] te pulmonary hypertension, RVSP 50.90 mmHg. Trace MS. No pericardial effusion. IVC WNL, C SAND WORKER normal. Aortic root dilated 4.1 cm, stable [...] inferolateral leads, tracing per sonally reviewed by tx EK11/11/2017: Atrial fib with RVR, rate 1 26 bpm, QRS 90 ms, QTC 443 ms him a tracing perc ent reviewed by tx EK03/28/2018: Atrial fibrillation with slow ventricular response, rate 47 bpm, QRS 102 ms , QTC 332 ms , tracing personally reviewed by tx EK05/18/2018: Atrial fib with borderline controlled rate. Rate 92 bpm, QRS 92 ms, QTC 4 30 ms, wondering baseline, tracing personally reviewed by me E K10/19/2018: NS rhythm, PACs, A. fib at 85 bpm, MS 236 ms, QRS 94 ms, QTC 430 ms burt negrete personally reviewed by me, also had atrial fib with controlled ventricular response at 62 bpm captured when EKG tracing allowed to run EK06/24/2019: Atrial fib with RVR, occasional PVC. Rate 123 bpm, QRS 90 ms, QTC 449 ms, tracing personally reviewed by tx LABS Labs: 03/31/2018: BMP: Sodium 139, potassium [...] hematocrit 40.8, plate lets 298. Labs: 09/30/2018: [facility]: CMP: Sodium 131, potassium 4.9, [...] atrial fibrillation 2. 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 Problem list. Taylor BARRETO [facility] 06/25/2019 Ashley castro in this encounter Plan of Treatment +--------+---------+ + + + | Date | Type | Specialty | Care Team | Description | +--------+---------+ + + + | 06/22/ Office | Cardiology | Jody Lebron | | | 2019 | Visit | | [address] | | | | | | [address] | | | | | | [place] [address] | | | | | | [phone] | | | | | | | [...] | | | | | by [employer] Read Only, | | | | | | [employer] Eli ([id number]), | | | | | | city editor Edgardo Cueva | | | | | | ([phone]) on 06/24/2019 | | | | | [...] + + | Coronary artery disease of [place] artery of [place] heart with stable angina pectoris | | [...]
--- OUTSIDE RECORDS SUMMARY | ~2020-02-22 | XMS | Encounter Summary ---
Demographics + + + | Address | [address] | | | [place] [address] | + + + | Home Phone | | + + + | Preferred Language | Unknown | + + + | Marital Status | | + + + | Church Affiliation | 1077 | + + + | Race | White | + + + | Ethnic Group | Not or | + + + Author + + + | Author | [facility] | | | and [place] | + + + | Organization | [facility] | | | [...] ECON | Unknown | | | in [facility]) | | | | + + +---------+ + Care Team Providers + +------+ + | Care Assembler For Puller Over Hand Name | Role | Phone | + +------+ + | Nalini Jones MD | PCP | | + +------+ + Encounter Details +--------+ + + + + | Date | Type | Department | Care Team | Description | +--------+ + + + + | 04/23/ | Orders Only | [facility] | Enzo Knox, | | | 2016 | | [address] [place] | [address] | | | | | [address] | [place] [address] | | | | | [place] | [phone] | | | | | [address] | | | | | | [phone] | | | +--------+ + + + [...] TERAN | | | | | | [place] [address] | | | | | | [phone] | | | | | | | [...] LA/Ao: 1.93 TAPSE: 1.58 cm AR Dec Island: 2.29 m/s2 | | | AR Dec [...] 0.92 m/s MV | | | Dec Island: 4.93 m/s2 MV DecT: 183.10 ms MV E Kehinde: 0.89 m/s | | | MV DecT: 145.02 ms PV maxP.45 mmHg PV Vmax: 1.05 m/s | | | RAP: 10 mmHg RV S': 0.08 m/s RVSP: 50.46 mmHg TR maxPG: | | | 40.46 mmHg TR Vmax: 3.14 m/s Typewriter Mechanic: RONALD Authenticated | | | by: Enzo [...] mlLAESV Index (A-L): 90.09 ml/m2LAAs A2C: 42.26 [id number] A-L A2C: 203.39 mlLALs | | A2C: 7.45 cmLAAs A4C: 35.80 ve1HZJNL A-L A4C: 148.83 mlLAESV MOD A4C: 140.90 | | mlLALs A4C: 7.31 cmRAAs: 32.35 [id number] A-L: 134.91 mlRAESV MOD: 140.79 mlRALs: | | 6.58 cmAo Diam: 3.91 cmAo/LA: 0.51LA Diam: 7.56 cmLA/Ao: 1.93TAPSE: 1.58 | | cmAR Dec Island: 2.29 m/s2AR Dec Time: 1909.57 msAR maxP.85 mmHgAR PHT: | | 553.77 msAR Vmax: 4.38 m/Roxy Env.Ti: 251.60 msAV maxP.91 mmHgAV meanP.07 | | mmHgAV Vmax: 1.40 m/Roxy Vmean: 0.94 m/Roxy VTI: 23.83 cmAVA Vmax: 3.02 cm2AVA | | (VTI): 2.92 hk6HEEB Vmax: 0.00 cm2/m2AVAI (VTI): 0.00 cm2/m2LVOT Env.Ti: 222.31 | | msLVOT maxP.33 mmHgLVOT meanP.01 mmHgLVSI Dopp: 35.72 ml/m2LVSV Dopp: | | 69.65 mlLVOT Vmax: 0.90 m/sLVOT Vmean: 0.67 m/sLVOT VTI: 14.93 cmMR maxP.14 | | mmHgMR meanP.02 mmHgMR Vmax: 4.61 m/sMR Vmean: 3.68 m/sMR VTI: 131.43 cmMV | | E Kehinde: 0.92 m/sMV Dec Island: 4.93 m/s2MV DecT: 183.10 msMV E Kehinde: 0.89 m/sMV | | DecT: 145.02 msPV maxP.45 mmHgPV Vmax: 1.05 m/sRAP: 10 mmHgRV S': 0.08 | | m/sRVSP: 50.46 mmHgTR maxP.46 mmHgTR Vmax: 3.14 m/s Typewriter Mechanic: | | RKAuthenticated by: Enzo Knox MD, [...] | |TAPSE: 1.58 cm | |AR Dec Island: 2.29 m/s2 | |AR Dec Time: 1909.57 [...] E Kehinde: 0.92 m/s | |MV Dec Island: 4.93 m/s2 | |MV DecT: 183.10 ms | |MV E Kehinde: 0.89 m/s | |MV DecT: 145.02 ms | |PV maxP.45 mmHg | |PV Vmax: 1.05 m/s | |RAP: 10 mmHg | |RV S': 0.08 m/s | |RVSP: 50.46 mmHg | |TR maxP.46 mmHg | |TR Vmax: 3.14 m/s | | | |Typewriter Mechanic: RK | |Authenticated by: Enzo Knox MD, FACC, FACP, [facility] | |Report Date/Time: 04-26-2017 15:19:7 | [...]
--- OUTSIDE RECORDS SUMMARY | ~2020-02-22 | XMS | Encounter Summary ---
Demographics + + + | Address | [address] | | | [place] [address] | + + + | Home Phone | | + + + | Preferred Language | Unknown | + + + | Marital Status | | + + + | Adventist Affiliation | 1077 | + + + | Race | White | + + + | Ethnic Group | Not or | + + + Author + + + | Author | [facility] | | | and [place] | + + + | Organization | [facility] | | | and [...] ECON | Unknown | | | in [facility]) | | | | + + +---------+ + Care Team Providers + +------+ + | Care Attendant Self Service Store Name | Role | Phone | + +------+ + PCP | Unavailable | + +------+ + Encounter Details +--------+ + + + + | Date | Type | Department | Care Team | Description | +--------+ + + + + | 10/25/ | Hospital | [facility] | Conversion | Pain | | 2018 | Encounter | CONVERSION [address] | Transaction, | | | | | [address] | Provider Unknown | | | | | [place], [place] | [phone] | | | | | [address] | | | | | | [phone] | | | +--------+ + + + [...] TERAN | | | | | | [place] [address] | | | | | | [phone] | | | | | | | | +--------+---------+ + + + documented as of this encounter Procedures + +--------+ + + + | Procedure Name | Priori | Date/Time | Associated Diagnosis | Comments | | | ty | | | | + +--------+ + + + | XR CHEST 2 VIEWS | Routin | 07/10/2017 | | Results for this | | | e | 2:29 AM | | procedure are in the | | | | PST | | results section. | + +--------+ + + + documented in this encounter Results XR Chest 2 Vws (07/10/2017 2:29 AM PST) + + | Specimen [...]
--- OUTSIDE RECORDS SUMMARY | ~2020-02-22 | XMS | Encounter Summary ---
Demographics + + + | Address | [address] | | | [place] [address] | + + + | Home Phone | | + + + | Preferred Language | Unknown | + + + | Marital Status | | + + + | Jehovah'S Witness Affiliation | 1077 | + + + [...] ECON | Unknown | | | in [facility]) | | | | + + +---------+ + Care Team Providers + +------+ + | Care Open Hearth Laborer Name | Role | Phone | + +------+ + PCP | Unavailable | + +------+ + Encounter Details +--------+ + + + + | Date | Type | Department | Care Team | Description | +--------+ + + + + | 06/25/ | Orders Only | [facility] | Jody Lebron | | | 2018 | | CARDIOLOGY [place] | [address] | | | | | [address] | [address] | | | | | [place], [place] | [place] [address] | | | | | [address] | [phone] | | | | | [phone] | | | +--------+ + + + [...] TERAN | | | | | | [place] [address] | | | | | | [phone] | | | | | | | [...]
--- OUTSIDE RECORDS SUMMARY | ~2020-02-22 | XMS | Encounter Summary ---
Demographics + + + | Address | [address] | | | [place] [address] | + + + | Home Phone | | + + + | Preferred Language | Unknown | + + + | Marital Status | | + + + | Mandaen Affiliation | 1077 | + + + | Race | White | + + + | Ethnic Group | Not or | + + + Author + + + | Author | [facility] | | | and [place] | + + + | Organization | [facility] | | | [...] ECON | Unknown | | | in [facility]) | | | | + + +---------+ + Care Team Providers + +------+ + | Care Wire Hanger Name | Role | Phone | + +------+ + PCP | Unavailable | + +------+ + Encounter Details +--------+ + + + + | Date | Type | Department | Care Team | Description | +--------+ + + + + | 12/25/ | Hospital | [facility] | Conversion | Pain | | 2014 | Encounter | CON[address] | Transaction, | | | | | [address] | Provider Unknown | | | | | [place], [place] | [phone] | | | | | [address] | | | | | | [phone] | | | +--------+ + + + [...] TERAN | | | | | | [place] [address] | | | | | | [phone] | | | | | | | [...]
--- OUTSIDE RECORDS SUMMARY | ~2020-02-22 | XMS | Encounter Summary ---
Demographics + + + | Address | [address] | | | [place] [address] | + + + | Home Phone | | + + + | Preferred Language | Unknown | + + + | Marital Status | | + + + | Rastafari Affiliation | 1077 | + + + | Race | White | + + + | Ethnic Group | Not or | + + + Author + + + | Author | [facility] | | | and [place] | + + + | Organization | [facility] | | | and [...] Team Providers + +------+ + | Care Fleet Mechanic Name | Role | Phone | [...] + + | 03/24/ | Telephone | [facility] | Jody Lebron | Medication Question | | 2018 | | [facility]IOLOGY [facility] | [address] | | | | | [address] | [address] | | | | | [address] | [place] [address] | | | | | [address] | [phone] | | | | | [phone] | | | +--------+ + + + [...] TERAN | | | | | | [place] [address] | | | | | | [phone] | | | | | | | | +--------+---------+ + + + documented as of this encounter Visit Diagnoses + + | Diagnosis | + + | Chronic diastolic heart failure (HCC) - Primary Chronic diastolic heart failure | + + documented in this encounter"
--- OUTSIDE RECORDS SUMMARY | ~2020-02-22 | XMS | Encounter Summary ---
Demographics + + + | Address | [address] | | | [place] [address] | + + + | Home Phone [...] ECON | Unknown | | | in [facility]) | | | | + + +---------+ + Care Team Providers + +------+ + | Care Heel Reducer Name | Role | Phone | + +------+ + PCP | Unavailable | + +------+ + Encounter Details +--------+ + + + + | Date | Type | Department | Care Team | Description | +--------+ + + + + | 12/04/ | Orders Only | [facility] | Conversion | | | 2018 | | CARDIOLOGY [place] | Transaction, | | | | | [address] | Provider Unknown | | | | | [place], [place] | [phone] | | | | | [address] | (Fax) | | | | | [phone] | | | +--------+ + + + [...] TERAN | | | | | | [place] [address] | | | | | | [phone] | | | | | | | | +--------+---------+ + + + documented as of this encounter Procedures + +--------+ + + + | Procedure Name | Priori | Date/Time | Associated Diagnosis | Comments | | | ty | | | | + +--------+ + + + | BASIC METABOLIC | Routin | 12/04/2017 | | Results for this | | PANEL | e | 11:47 AM | | procedure are in the | | | | PDT | | results section. | + +--------+ + + + documented in this encounter Results Basic Metabolic Panel (12/04/2017 11:47 AM PDT) + + + + + + | Component | Value | Ref Range | Performed | Pathologist | | | | | At | Signature | + + + + + + | Glucose, | 96 | 70 - 100 mg/dL | EXTERNAL | | | Fasting | | | LAB | | + + + + + + | BUN | 32 (A) | 6 - 23 mg/dL | EXTERNAL | | | | | | LAB | | + + + + + + | Creatinine | 1.20 (A) | 70 - 1.11 mg/dL | EXTERNAL | | | | | | LAB | | + + + + + + | BUN/Creatin | 26.7 | 6.0 - 28.6 | EXTERNAL | | | ine Ratio | | | LAB | | + + + + + + | Calcium | 9.8 | 8.4 - 10.2 | EXTERNAL | | | | | mg/dL | LAB | | + + + + + + | Na | 138 | 132 - 143 | EXTERNAL | | | | | mmol/L | LAB | | + + + + + + | K | 5.0 | 3.6 - 5.1 | EXTERNAL | | | | | mmol/L | LAB | | + + + + + + | Cl | 96 | 95 - 112 mmol/L | EXTERNAL | | | | | | LAB | | + + + + + + | CO2 | 32 (A) | 19 - 31 mmol/L | EXTERNAL | | | | | | LAB | | + + + + + + | Anion Gap | 15.0 | 7 - 21 mmol/L | EXTERNAL | | | | | | LAB | | + + + + + + | Estimated | 58 (A) | 60 mg/dL | EXTERNAL | | | GFR [...]
--- OUTSIDE RECORDS SUMMARY | ~2020-02-22 | XMS | Encounter Summary ---
Demographics + + + | Address | [address] | | | [place] [address] | + + + | Home Phone [...] Team Providers + +------+ + | Care Window Unit Air Conditioning Mechanic Name | Role | Phone | + +------+ + PCP | Unavailable | + +------+ + Encounter Details +--------+ + + + + | Date | Type | Department | Care Team | Description | +--------+ + + + + | 01/27/ | Orders Only | [facility] | Provider, | Atherosclerotic | | 2018 | | SYSTEM GENERIC OP | [address] | heart disease of | | | | CONVERSION [address] | [address] | [place] coronary | | | | [address] [place], [place] | [place] [address] | artery with other | | | | [address] | | forms of angina | | | | [phone] | | pectoris (HCC); | | | | | | Chronic atrial | | | | | | fibrillation (HCC); | | | | | | Essential (primary) | | | | | | hypertension; | | | | | | Chronic kidney | | | | | | disease, stage III | | | | | | (moderate) (HCC); | | | | | | Other iron | | | | | | deficiency anemias; | | | | | | Mixed hyperlipidemia | +--------+ + + + + Social [...] TERAN | | | | | | [place] [address] | | | | | | [phone] | | | | | | | | +--------+---------+ + + + + +------+--------+ + + | Name | Type | Priori | Associated Diagnoses | Order Schedule | | | | ty | | | + +------+--------+ + + | CBC with Manual | Lab | Routin | Atherosclerotic | Expected: | | Differential | | e | heart disease of | 07/22/2018, Expires: | | | | | [place] coronary | 07/22/2019 | | | | | artery with other | | | | | | forms of angina | | | | | | pectoris (HCC) | | | | | | Chronic atrial | | | | | | fibrillation (HCC) | | + +------+--------+ + + | Comprehensive | Lab | Routin | Essential | Expected: | | Metabolic Panel | | e | (primary) | 02/04/2019, Expires: | | | | | hypertension | 06/25/2020 | | | | | Chronic kidney | | | | | | disease, stage III | | | | | | (moderate) (HCC) | | + +------+--------+ + + | CBC with | Lab | Routin | Other iron | Expected: | | Differential | | e | deficiency anemias | 02/04/2019, Expires: | | | | | | 12/24/2019 | + +------+--------+ + + | Lipid Panel | Lab | Routin | Mixed | Expected: | | | | e | hyperlipidemia | 02/04/2019, Expires: | | | | | | 06/25/2020 | + +------+--------+ + + documented as of this encounter Visit Diagnoses + + | Diagnosis | + + | 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
--- OUTSIDE RECORDS SUMMARY | ~2020-02-22 | XMS | Encounter Summary ---
Demographics + + + | Address | [address] | | | [place] [address] | + + + | Home Phone [...] + + | Author | [facility] | | | and [place] | + + + | Organization | 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
--- OUTSIDE RECORDS SUMMARY | ~2020-02-22 | XMS | Encounter Summary ---
Demographics + + + | Address | [address] | | | [place] [address] | + + + | Home Phone | | + + + | Preferred Language | Unknown | + + + | Marital Status | | + + + | Yarsanism Affiliation | 1077 | + + + [...] Team Providers + +------+ + | Care Bridge Teacher Name | Role | Phone | [...] + + | 12/14/ | Office | [facility] | Sera Keating, | Chronic diastolic | | 2020 | Visit | CARDIOLOGY [place] | [address] | heart failure (HCC) | | | | [address] | [place], [place] | (Primary Dx); | | | | [address] | [address] | Essential | | | | [place] | | hypertension; | | | | [address] | | Coronary artery | | | | [phone] | | disease of [place] | | | | | | artery [place] | | | | | | heart [...] using a walker. Continues to be in [facility] living. Continues to have arthritic pain [...] mild disease. LCX mild disease/ first OM CASTING DIRECTOR. RCA is CASTING DIRECTOR at proximal segment. Left to right [...] TERAN | | | | | | [place] [address] | | | | | | [phone] | | | | | | | [...] | | | | | disease of [place] | | | | | | artery of [place] | | | | | | heart [...] | | | | | disease of [place] | | | | | | artery of [place] | | | | | | 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 | | | | | | (HCC) | | + +------+--------+ + + | Comprehensive | Lab | Routin | Chronic diastolic | 1 Occurrences | | Metabolic Panel | | e | heart failure ([facility]) | starting 12/15/2019 | | | | | Essential | until 12/14/2020 | | | | | hypertension | | | | | | Coronary artery | | | | | | disease of [place] | | | | | | artery of [place] | | | | | | 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 | | | | | | ([facility]) | | + +------+--------+ + + documented as of this encounter Visit Diagnoses + + | Diagnosis | + + | Chronic diastolic heart failure (HCC) - Primary Chronic diastolic heart failure | + + | Essential hypertension Unspecified essential hypertension | + + | Coronary artery disease of [place] artery of [place] heart with stable angina pectoris | | (HCC) | + + documented in this encounter
--- OUTSIDE RECORDS SUMMARY | ~2020-02-22 | XMS | Encounter Summary ---
Demographics + + + | Address | [address] | | | [place] [address] | + + + | Home Phone | | + + + | Preferred Language | Unknown | + + + | Marital Status | | + + + | Druze Affiliation | 1077 | + + + | Race | White | + + + | Ethnic Group | Not or | + + + Author + + + | Author | [facility] | | | and [place] | + + + | Organization | [facility] | | | [...] Team Providers + +------+ + | Care X Ray Technologist Name | Role | Phone | + +------+ + | Nalini Jones MD | PCP | | + +------+ + Encounter Details +--------+ + + + + | Date | Type | Department | Care Team | Description | +--------+ + + + + | 08/22/ | Orders Only | [facility] | Enzo Knox Levi, | | | 2017 | | CARDIOLOGY ALISO VIEJO | [address] | | | | | [address] | [place] [address] | | | | | [address] | [phone] | | | | | [place], [place] | | | | | | [address] | | | | | | [phone] | | | +--------+ + + + [...] [address] | | | | | | [place] [address] | | | | | | [phone] | | | | | | | | +--------+---------+ + + + documented as of this encounter Procedures + +--------+ + + + | Procedure Name | Priori | Date/Time | Associated Diagnosis | Comments | | | ty | | | | + +--------+ + + + | NM MYOCARDIAL | Routin | 08/22/2016 | | Results for this | | PERFUSION MULT SPECT | e | 3:14 PM | | procedure are in the | | | | PST | | results section. | + +--------+ + + + documented in this encounter Results NM Myocardial Perfusion Mult SPECT (08/22/2016 3:14 PM PST) + + | Specimen | + + | | + + + + + | Impressions | Performed At | + + + | Limited exercise tolerance No exercise-induced symptoms No change | | | in the underlying arrhythmia ECG suggestive of ischemia SPECT images | | | show a small inferior defect that worsens at rest. No ischemia. | | | Normal LV systolic function No comparison studies available. | | | Enzo Knox MD, FACC, FACP, FASNC | | + + + + + + | Narrative | Performed At | + + + | [facility] [address], [facility] [place], [place] | | | [phone] NUCLEAR TREADMILL STRESS TEST ? TEST DATE: | | | 08/22/2016 NAME: Yeyo Casarez : 1930 | | | ORDERING MD: Enzo Knox MD INDICATION FOR TEST: 86 year old | | | male being evaluated for atrial fibrillation, coronary artery disease. | | | RISK FACTORS: hypertension, hyperlipidemia. PREVIOUS CARDIAC | | | PROCEDURES: no. PROCEDURE: Adrián protocol. Rest dose- 11.5 mCi of | | | Tc-99 Myoview given intravenously. Stress dose- At 3:00 minutes 32.9 | | | mCi of Tc-99 Myoview given intravenously. Effective Dose Equivalent: | | | 15.3 mSv. Predicted exercise time was 4 minutes. Predicted Maximum | | | HR: 136. Predicted 85% Max HR: 116. REST DATA: Heart Rate: 79 | | | bpm, BP: 104/78. ECG: Atrial fibrillation rate 73. Old septal [place]. | | | Nonspecific ST and T wave abnormalities. STRESS DATA: Exercise | | | Time: 3:14 minutes, Heart Rate achieved: 148 bpm, Max BP: 139/69, RPP: | | | 488[address]. METS: 5.10. The patient walked to 108% MPHR. Symptoms none The | | | test was terminated due to patient bilateral leg fatigue, ECG: No | | | change in the underlying arrhythmia. ST segment depression | | | suggestive of ischemia area EJECTION FRACTION: REST EF: 65% STRESS | | | EF: 68%. IMAGING: The quality images are good. No artifacts are | | | seen. SPECT images show a small inferior defect that worsens at rest. | | | Gated images show abnormal thickening in the inferior region. Wall | | | motion study is normal. Post stress ejection fraction is 68%.. | | + + + + + | Procedure Note | + + | Kend[place], Rad Conversion - 02/25/2019 7:08 PM [facility] [id number] | | Dr [place], [phone] NUCLEAR TREADMILL STRESS TEST?TEST DATE: | | 08/22/2016NAME: Yeyo LeidaDOB: 1930MRN: [id number] MD: Enzo Knox MD | | INDICATION FOR TEST: 86 year old male being evaluated for atrial fibrillation, | | coronary artery disease. RISK FACTORS: hypertension, hyperlipidemia. PREVIOUS CARDIAC | | PROCEDURES: no. PROCEDURE: Adrián protocol. Rest dose- 11.5 mCi of Tc-99 Myoview given | | intravenously. Stress dose- At 3:00 minutes 32.9 mCi of Tc-99 Myoview given | | intravenously. Effective Dose Equivalent: 15.3 mSv. Predicted exercise time was 4 | | minutes. Predicted Maximum HR: 136. Predicted 85% Max HR: 116. REST DATA: Heart Rate: | | 79 bpm, BP: 104/78. ECG: Atrial fibrillation rate 73. Old septal [place]. Nonspecific ST and | | T wave abnormalities. STRESS DATA: Exercise Time: 3:14 minutes, Heart Rate achieved: 148 | | bpm, Max BP: 139/69, RPP: 41615. METS: 5.10. The patient walked to 108% MPHR. Symptoms | | none The test was terminated due to patient bilateral leg fatigue, ECG: No change in | | the underlying arrhythmia. ST segment depression suggestive of ischemia area EJECTION | | FRACTION: REST EF: 65% STRESS EF: 68%. IMAGING:The quality images are good. No artifacts | | are seen. SPECT images show a small inferior defect that worsens at rest. Gated images | | show abnormal thickening in the inferior region. Wall motion study is normal. Post | | stress ejection fraction is 68%.. IMPRESSION: Limited exercise toleranceNo | | exercise-induced symptomsNo change in the underlying arrhythmiaECG suggestive of | | ischemiaSPECT images show a small inferior defect that worsens at rest. No | | ischemia.Normal LV systolic functionNo comparison studies available. Enzo Knox, | | , FACC, FACP, FASNC | | | |REST DATA: Heart Rate: 79 bpm, BP: 104/78. ECG: Atrial fibrillation rate 73. Old septal [place] . Nonspecific ST and T wave abnormalities. | | | |STRESS DATA: Exercise Time: 3:14 minutes, Heart Rate achieved: 148 bpm, Max BP: 139/69, RPP : 24113. METS: 5.10. The patient walked to 108% MPHR. Symptoms none The test was terminated due to patient bilateral leg | |fatigue, ECG: No change in the underlying | | arrhythmia. ST segment depression suggestive of ischemia area | | | |EJECTION FRACTION: REST EF: 65% STRESS EF: 68%. | | | |IMAGING: | |The quality images are good. No artifacts are seen. SPECT images show a small inferior defe ct that worsens at rest. Gated images show abnormal thickening in the inferior region. Wall motion study is normal. Post stress ejection fraction is 68%.. | | | |IMPRESSION: | |Limited exercise tolerance | |No exercise-induced symptoms | |No change in the underlying arrhythmia | |ECG suggestive of ischemia | |SPECT images show a small inferior defect that worsens at rest. No ischemia. | |Normal LV systolic function | |No comparison studies available. | | | |Enzo Knox MD, FACC, FACP, FASNC | | | | | + + documented in this encounter Visit Diagnoses Not on filedocumented in this encounter"
--- OUTSIDE RECORDS SUMMARY | ~2020-02-22 | XMS | Encounter Summary ---
Demographics + + + | Address | [address] | | | [place] [address] | + + + | Home Phone [...] ECON | Unknown | | | in [facility]) | | | | + + +---------+ + Care Team Providers + +------+ + | Care Fiber Optics Engineer Name | Role | Phone | + +------+ + PCP | Unavailable | + +------+ + Encounter Details +--------+ + + + + | Date | Type | Department | Care Team | Description | +--------+ + + + + | 10/25/ | Hospital | [facility] | Conversion | Pain | | 2018 | Encounter | CONVERSION [address] | Transaction, | | | | | [address] | Provider Unknown | | | | | [place], [place] | [phone] | | | | | [address] | | | | | | [phone] | | | +--------+ + + + [...] [address] | | | | | | [place] [address] | | | | | | [phone] | | | | | | | | +--------+---------+ + + + documented as of this encounter Procedures + +--------+ + + + | Procedure Name | Priori | Date/Time | Associated Diagnosis | Comments | | | ty | | | | + +--------+ + + + | XR CHEST 2 VIEWS | Routin | 06/03/2016 | | Results for this | | | e | 2:29 AM | | procedure are in the | | | | PST | | results section. | + +--------+ + + + documented in this encounter Results XR Chest 2 Vws (06/03/2016 2:29 AM PST) + + | Specimen [...]
--- OUTSIDE RECORDS SUMMARY | ~2020-02-22 | XMS | Encounter Summary ---
Demographics + + + | Address | [address] | | | [place] [address] | + + + | Home Phone [...] Author + + + | Author | [facility] | | | and [place] | + + + | Organization | [facility] | | [...] ECON | Unknown | | | in [facility]) | | | | + + +---------+ + Care Team Providers + +------+ + | Care Cloth Picker Name | Role | Phone | + +------+ + PCP | Unavailable | + +------+ + Encounter Details +--------+ + + + + | Date | Type | Department | Care Team | Description | +--------+ + + + + | 01/27/ | Orders Only | [facility] | Provider, | Atherosclerotic | | 2018 | | [facility] GENER[facility] | [address] | heart disease of | | | | CONVERSION [address] | [address] | [place] coronary | | | | [address] [place], [place] | [place] [address] | artery with other | | | | [address] | | forms of angina | | | | [phone] | | pectoris (HCC); | | | [...] [address] | | | | | | [place] [address] | | | | | | [phone] | | | | | | | [...] 07/22/2018, Expires: | | | | | [place] coronary | 07/22/2019 | | | | [...] + + | Atherosclerotic heart disease of [place] coronary artery with other forms of angina [...]
--- OUTSIDE RECORDS SUMMARY | ~2020-02-22 | XMS | Encounter Summary ---
Demographics + + + | Address | [address] | | | [place] [address] | + + + | Home Phone | | + + + | Preferred Language | Unknown | + + + | Marital Status | | + + + | Anglican Affiliation | 1077 | + + + | Race | White | + + + | Ethnic Group | Not or | + + + Author + + + | Author | [facility] | | | and [place] | + + + | Organization | [facility] | | [...] Team Providers + +------+ + | Care Dough Mixer Name | Role | Phone | + +------+ + PCP | Unavailable | + +------+ + Encounter Details +--------+ + + + + | Date | Type | Department | Care Team | Description | +--------+ + + + + | 11/13/ | Hospital | [facility] | Conversion | Facet arthropathy, | | 2016 | Encounter | [facility] MRI [address] | Transaction, | lumbar | | | | [address] | Provider Unknown | | | | | [place], [place] | | | | | | [address] | (Fax) | | | | | [phone] | | | +--------+ + + + [...] | 06/22/ | Office | Cardiology | Bernardino[facility]ody | | | 2020 | Visit | | [address] | | | | | | [address] | | | | | | [place] [address] | | | | | | [phone] | | | | | | | | +--------+---------+ + + + documented as of this encounter Procedures + +--------+ + + + | Procedure Name | Priori | Date/Time | Associated Diagnosis | Comments | | | ty | | | | + +--------+ + + + | MRI LUMBAR SPINE WO | Routin | 11/14/2015 | | Results for this | | CONTRAST | e | 12:27 PM | | procedure are in the | | | | PDT | | results section. | + +--------+ + + + documented in this encounter Results MRI Lumbar Spine wo Contrast (11/14/2015 12:27 PM PDT) + + | Specimen | + + | | + + + + + | Impressions | Performed At | + + + | 1. Dextroscoliotic curvature of the lumbar spine centered at | | | L2. 2. Multilevel degeneration of the intervertebral discs of the | | | lumbar spine. 3. Facet joint arthropathy, most prominent from L3-L4 | | | through L5-S1. 4. Other findings as above. Electronically | | | signed by Yuan Huitron MD on 11/14/2015 2:13 PM | | + + + + + + | Narrative | Performed At | + + + | RUDY MARTI 1930 MRI LUMBAR SPINE WO CONTRAST 11/14/2015 | | | 12:27 PM INDICATION: Facet joint arthropathy. Lumbar degenerative | | | disease. COMPARISON: November 14, 2015 radiograph TECHNIQUE: | | | Imaging was performed on a 1.5 Kamila MRI system. Multiplanar | | | sequences according to a standard department protocol were acquired | | | without contrast. FINDINGS: Conus ends at L1. No abnormal | | | signal of the terminal spinal cord. Dextroscoliotic curvature of the | | | lumbar spine centered at L2. T10-T11 and T11-T12 levels are | | | unremarkable with no spinal canal stenosis or neural foraminal | | | stenosis. T12-L1: Intervertebral disc height loss. Partial osseous | | | fusion of the right aspect of the disc space. Right mild neural | | | foraminal narrowing. Left neural foramen is open. L1-L2: Anterior | | | vertebral body height loss at L1 measuring approximately 50%. Mild | | | posterior disc protrusion. No spinal canal stenosis. Left moderate | | | neural foraminal narrowing. Right neural foramen is open. L2-L3: | | | Mild retrolisthesis of L2 on L3 measuring approximate 5 mm. | | | Intervertebral disc degeneration. Intervertebral disc height loss. | | | Left moderate neural foraminal narrowing. Right neural foramen is | | | open. Mild facet joint arthropathy. L3-L4: Intervertebral disc | | | desiccation. No spinal canal stenosis. Right mild neural foraminal | | | narrowing. Left neural foramen is open. Minimal retrolisthesis of L3 | | | on L4 measuring approximately 2 mm. Bilateral moderate facet joint | | | arthropathy. L4-L5: No spinal canal stenosis. Broad-based | | | circumferential disc bulge. Mild anterolisthesis of L4 on L5 | | | (measuring 4 mm.) Left neural foramen is open. Right mild neural | | | foraminal narrowing. Right advanced facet joint arthropathy. Left | | | moderate facet joint arthropathy. L5-S1: Intervertebral disc | | | desiccation. Broad-based circumferential disc bulge. No spinal canal | | | stenosis. No neural foraminal stenosis. Bilateral moderate facet joint | | | arthropathy. | | + + + + + | Procedure Note | + + | Armando Rdz Conversion - 02/18/2019 1:20 PM ELLA MARTI193MRI LUMBAR SPINE WO | | CONTRAST11/14/2015 12:27 PM INDICATION: Facet joint arthropathy. Lumbar degenerative | | disease. COMPARISON: November 14, 2015 radiograph TECHNIQUE:Imaging was performed on a 1.5 | | Kamila MRI system. Multiplanar sequences according to a standard department protocol | | were acquired without contrast. FINDINGS: Conus ends at L1. No abnormal signal of the | | terminal spinal cord. 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 | | T10-T11 and T11-T12 levels are unremarkable with no spinal canal stenosis or neural | | foraminal stenosis. T12-L1: Intervertebral disc height loss. Partial osseous fusion of | | the right aspect of the disc space. Right mild neural foraminal narrowing. Left neural | | foramen is open. L1-L2: Anterior vertebral body height loss at L1 measuring | | approximately 50%. Mild posterior disc protrusion. No spinal canal stenosis. Left | | moderate neural foraminal narrowing. Right neural foramen is open. L2-L3: Mild | | retrolisthesis of L2 on L3 measuring approximate 5 mm. Intervertebral disc degeneration. | | Intervertebral disc height loss. Left moderate neural foraminal narrowing. Right neural | | foramen is open. Mild facet joint arthropathy. L3-L4: Intervertebral disc desiccation. | | No spinal canal stenosis. Right mild neural foraminal narrowing. Left neural foramen is | | open. Minimal retrolisthesis of L3 on L4 measuring approximately 2 mm. Bilateral | | moderate facet joint arthropathy. L4-L5: No spinal canal stenosis. Broad-based | | circumferential disc bulge. Mild anterolisthesis of L4 on L5 (measuring 4 mm.) Left | | neural foramen is open. Right mild neural foraminal narrowing. Right advanced facet | | joint arthropathy. Left moderate facet joint arthropathy. L5-S1: Intervertebral disc | | desiccation. Broad-based circumferential disc bulge. No spinal canal stenosis. No neural | | foraminal stenosis. Bilateral moderate facet joint arthropathy. IMPRESSION: 1. | | Dextroscoliotic curvature of the lumbar spine centered at L2.2. Multilevel degeneration | | of the intervertebral discs of the lumbar spine.3. Facet joint arthropathy, most | | prominent from L3-L4 through L5-S1.4. Other findings as above. | |joint arthropathy. | | | |L5-S1: Intervertebral disc desiccation. Broad-based circumferential disc bulge. No spinal c anal stenosis. No neural foraminal stenosis. Bilateral moderate facet joint arthropathy. | | | |IMPRESSION: | | | |1. 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 | |2. Multilevel degeneration of the intervertebral discs of the lumbar spine. | |3. Facet joint arthropathy, most prominent from L3-L4 through L5-S1. | |4. Other findings as above. 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
--- OUTSIDE RECORDS SUMMARY | ~2020-02-22 | XMS | Encounter Summary ---
Demographics + + + | Address | [address] | | | [place] [address] | + + + | Home Phone | | + + + | Preferred Language | Unknown | + + + | Marital Status | | + + + | Anglican Affiliation | 1077 | + + + | Race | White | + + + | Ethnic Group | Not or | + + + Author + + + | Author | [facility] | | | and [place] | + + + | Organization | [facility] | | | [...] Team Providers + +------+ + | Care Driver Sales Name | Role | Phone | + [...] + + | 07/29/ | Office | [facility] | Jody Lebron | Persistent atrial | | 2019 | Visit | CARDIOLOGY REGGIE | [address] | fibrillation (HCC) | | | | [address] | [address] | (Primary Dx); | | | | [address] | [place] [address] | Chronic diastolic | | | | [place] | [phone] | heart failure (HCC); | | | | [address] | | Coronary artery | | | | [phone] | | disease of [place] | | | | | | artery of [place] | | | | | | heart [...] Non fasting labs [facility] , but drink water prior to having [...] he also lives in assisted living at [facility]. He was previously been a patient of ,and last seen by him 10/16/2017, and also has been seen by heart failure [employer] CELLAR, Cornelia Escudero , last on 01/2018. He has now established care with Dr. Godwin , who is his local primary operators teacher, an d last seen by him in [...] on Eliquis 2.5 mg twice daily for [id number] VASC score is 5 (CHF, a ge, vasc dis,) . Though previously documented as valvular atrial fibrillation , he has not undergone valve surgery, either repair or replacement, and does not have severe rheumatic mitral stenosis. His current and previous testing and procedures are detailed below. He was previously hospitalized on November 1405/2018 until December 022017 at [facility] for increa sed dyspnea, edema, and back pain due to acute heart failure and new T12 compression fractur e, and heart failure exacerbation likely secondary to stopping diuretic and fall. He was also hospitalized [facility] on June 10 - June 14, 2018 for acute deco mpensation of chronic diastolic heart failure and iron deficiency anemia as well as exacerba tion of his chronic respiratory failure, and chronic A. fib . He was admitted again to [facility] September 30 - October 04, 2018 [...] Labs . His vital sign record from [facility] documents blood pressure has also been well [...] fractures, and O2 and tolerates. Lives in [place] [facility]. Son lives nearby. Use d to live in [facility] Medications Prior to Visit Medication Sig [...] branch/ramus intermedius branch, and complete occlusion RCA. [id number] involvement of the rest of the system.Good [...] atrial fib is 73 bpm, old septal [place]. Nonspecific ST and T-wave abnormalities. Stress heart [...] Valsalva, 41 mm. Mobile intra-arterial septum Echo: 11/12/2017:([facility]) . Atrial fib. EF [...] te pulmonary hypertension, RVSP 50.90 mmHg. Trace MO. No pericardial effusion. IVC WNL, C LAP CHECKER normal. 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 fib at 85 bpm, MO 236 ms, QRS 94 ms, QTC 430 ms jose luis ng personally reviewed by me, also had atrial fib with controlled ventricular response at 62 bpm captured when EKG tracing allowed to run EK06/24/2019:(bisoprolol 2.5 mg) Atrial fib with RVR, occasional PVC. Rate 123 bpm, QRS 90 ms, QTC 449 ms, tracing personally reviewed by tx EK07/29/2019:( bisoprolol 5 mg ) Sinus rhythm with occasional PAC. Rate 63 bpm, MO 178 ms, QRS 98 ms, QTC 405 ms, tracing personally reviewed by tx, and compared to EKG performed on June 24, sinus rhythm has replaced atrial fib, and rate now well controlled LABS Labs: 03/31/2018: BMP: Sodium 139, potassium 3.9, chloride 95, glucose 96, BUN 20, creatinin e 0.69, GFR 109 Labs: 03/27/2018:( [facility] ER) CMP: Sodium 134, potassium 5.7, chloride [...] 40.8, plate lets 298. Labs: 09/30/2018: [facility] ER: CMP: Sodium 131, potassium 4.9, chloride [...] failure (HCC) 3. 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 History of non-ST elevation myocardial infarction (NSTEMI) 5. Moderate mitral regurgitation by prior echocardiogram 6. Chronic anticoagulation 7. Essential hypertension 8. Mixed hyperlipidemia 9. Other secondary pulmonary hypertension (HCC) 10. Encounter for monitoring diuretic therapy 11. Chronic respiratory failure with hypoxia, on home O2 therapy ([facility]) 12. Stage 3 chronic kidney disease ([facility]) 13. Chronic obstructive pulmonary disease, unspecified COPD type ([facility]) 14. Former smoker Orders Placed This Encounter [...] medication and vital sign record from [facility] personally reviewed by me. Allergies, current medications.labs Family history, past medical history, past social history, past surgical history. Problem list. 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
--- OUTSIDE RECORDS SUMMARY | ~2020-02-22 | XMS | Encounter Summary ---
Demographics + + + | Address | [address] | | | [place] [address] | + + + | Home Phone [...] + + + | Author | [facility] | | | and [place] | + + + | Organization | [facility] | | | [...] Unknown | | | in [facility]) | | | | + + +---------+ + Care Team Providers + +------+ + | Care Network Systems Operator Name | Role | Phone | + +------+ + PCP | Unavailable | + +------+ + Encounter Details +--------+ + + + + | Date | Type | Department | Care Team | Description | +--------+ + + + + | 12/04/ | Orders Only | [facility] | Conversion | | | 2018 | | CARDIOLOGY [place] | Transaction, | | | | | [address] | Provider Unknown | | | | | [place], [place] | [phone] | | | | | [address] | (Fax) | | | | | [phone] | | | +--------+ + + + [...] TERAN | | | | | | [place] [address] | | | | | | [phone] | | | | | | | [...]
--- OUTSIDE RECORDS SUMMARY | ~2020-02-22 | XMS | Encounter Summary ---
Demographics + + + | Address | [address] | | | [place] [address] | + + + | Home Phone | | + + + | Preferred Language | Unknown | + + + | Marital Status | | + + + | Methodist Affiliation | 1077 | + + + | Race | White | + + + | Ethnic Group | Not or | + + + Author + + + | Author | [facility] | | | and [place] | + + + | Organization | [facility] | | | [...] ECON | Unknown | | | in [facility]) | | | | + + +---------+ + Care Team Providers + +------+ + | Care Consumer Marketing Specialist Name | Role | Phone | + +------+ + PCP | Unavailable | + +------+ + Encounter Details +--------+ + + + + | Date | Type | Department | Care Team | Description | +--------+ + + + + | 11/13/ | Hospital | [facility] | Conversion | Facet arthropathy, | | 2016 | Encounter | [facility] MRI [address] | Transaction, | lumbar | | | | [address] | Provider Unknown | | | | | [place], [place] | | | | | | [address] | (Fax) | | | | | [phone] | | | +--------+ + + + [...] TERAN | | | | | | [place] [address] | | | | | | [phone] | | | | | | | [...]
--- OUTSIDE RECORDS SUMMARY | ~2020-02-22 | XMS | Encounter Summary ---
Demographics + + + | Address | [address] | | | [place] [address] | + + + | Home Phone | | + + + | Preferred Language | Unknown | + + + | Marital Status | | + + + | Roman Catholic Affiliation | 1077 | + + + | Race | White | + + + | Ethnic Group | Not or | + + + Author + + + | Author | [facility] | | | and [place] | + + + | Organization | [facility] | [...] ECON | Unknown | | | in [facility]) | | | | + + +---------+ + Care Team Providers + +------+ + | Care Materials Planning Manager Name | Role | Phone | [...] | | [address] | [place], [place] | | | | | [place], [place] | [address] | | | | | [address] | | | | | | [phone] | | | +--------+ + + + [...] TERAN | | | | | | [facility] [address] | | | | | | [phone] | | | | | | | [...] 6.88 cm TAPSE: 1.90 cm AR Dec [place]: | | | 2.60 m/s2 AR Dec [...] MV A Kehinde: 0.44 m/s MV Dec [place]: 3.91 | | | m/s2 MV DecT: 187.42 ms MV E Kehinde: 0.73 m/s MV E/A Ratio: | | | 1.65 MV PHT: 54.35 ms MVA By PHT: 4.04 cm2 TR maxP.14 | | | mmHg TR Vmax: 3.35 m/s RV s': 0.12 m/s Associate Director Finance: MORALES | | | Authenticated by: Sera Almontedenver Report Date/Time: 10-06-2018 | | | 15:40:22 [...] | 4.37 cmLVPWd: 1.13 cmLVOT Area: 4.34 [id number] Diam: 2.35 cm%FS: 36.00 %EF(Teich): | | [...] (A-L): 101.61 ml/m2LAAs A2C: 38.67 | | ta1KDUZG A-L A2C: 172.17 mlLALs A2C: 7.37 cmLAAs A4C: 41.54 go2KXHHJ A-L A4C: | | 195.38 mlLALs A4C: 7.49 cmRAAs: 21.71 ic9HLLQV A-L: 58.10 mlRAESV MOD: 61.98 | | mlRALs: 6.88 cmTAPSE: 1.90 cmAR Dec [place]: 2.60 m/s2AR Dec Time: 1609.18 msAR | | maxP.36 mmHgAR PHT: 466.66 msAR Vmax: 4.19 m/Roxy maxP.15 mmHgAV meanPG: | | 4.43 mmHgAV Vmax: 1.51 m/Roxy Vmean: 1.00 m/Roxy VTI: 27.53 cmAVA Vmax: 2.61 | | cm2AVA (VTI): 2.84 bw1VIZF (Vmax): 0.00 cm2/m2AVAI (VTI): 0.00 cm2/m2LVOT maxPG: | | 3.31 mmHgLVOT meanP.66 mmHgLVSI Dopp: 42.98 ml/m2LVSV Dopp: 78.23 mlLVOT | | Vmax: 0.91 m/sLVOT Vmean: 0.59 m/sLVOT VTI: 18.00 cmMV A [place]: 0.44 m/sMV Dec | | [place]: 3.91 m/s2MV DecT: 187.42 msMV E [place]: 0.73 m/sMV E/A Ratio: 1.65MV PHT: | | 54.35 msMVA By PHT: 4.04 cm2TR maxP.14 mmHgTR Vmax: 3.35 m/sRV s': 0.12 m/s | | Associate Director Finance: DBSAuthenticated by: Sera Leighort Date/Time: 10-06-2018 15:40:22 [...] | |TAPSE: 1.90 cm | |AR Dec [place]: 2.60 m/s2 | |AR Dec Time: 1609.18 [...] A Kehinde: 0.44 m/s | |MV Dec [place]: 3.91 m/s2 | |MV DecT: 187.42 ms | |MV E [place]: 0.73 m/s | |MV E/A Ratio: 1.65 | |MV PHT: 54.35 ms | |MVA By PHT: 4.04 cm2 | |TR maxP.14 mmHg | |TR Vmax: 3.35 m/s | |RV s': 0.12 m/s | | | |Associate Director Finance: DBS | |Authenticated by: Sera Godwin | [...]
--- OUTSIDE RECORDS SUMMARY | ~2020-02-22 | XMS | Encounter Summary ---
Demographics + + + | Address | [address] | | | [place] [address] | + + + | Home Phone | | + + + | Preferred Language | Unknown | + + + | Marital Status | | + + + | Yazdanism Affiliation | 1077 | + + + | Race | White | + + + | Ethnic Group | Not or | + + + Author + + + | Author | [facility] | | | and [place] | + + + | Organization | [facility] | | | [...] Team Providers + +------+ + | Care Reconciliation Coordinator Name | Role | Phone | + [...] + + | 05/06/ | Office | [facility] | Jody Lebron | Coronary artery | | 2019 | Visit | CARDIOLOGY REGGIE | [address] | disease of c[place] | | | | [address] | [address] [address] | artery of [place] | | | | [address] | [place] [address] | heart with stable | | | | [place] | [phone] | angina pectoris | | | | [address] | | (HCC) (Primary Dx); | | | | [phone] | | History of non-ST | | | | | | elevation myocardial | | | | | | infarction | | | | | | (NSTEMI); Chronic | | | | | | diastolic heart | | | | | | failure (HCC); | | | | | | Persistent atrial | | | | | | fibrillation ([facility]); | | | | | | Chronic [...] disease | | | | | | ([facility]); Other | | | | | | secondary pulmonary | | | | | | hypertension ([facility]); | | | | | | 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 He was previously seen patient of and last seen by him 10/16/2017, and also has b een seen by heart failure ELECTRODYNAMICIST, Cornelia Escudero , last on 01/2018. He has now established care with Dr. Keating , who is his local primary rouge mixer, an charo last seen by him in [...] on Eliquis 2.5 mg twice daily for [id number] VASC score is 5 (CHF, a ge, vasc dis,) . Though previously documented as valvular atrial fibrillation , he has not undergone valve surgery, either repair or replacement, and does not have severe rheumatic mitral stenosis. His current and previous testing and procedures are detailed below. He was previously hospitalized on November 1405/2018 until December 022017 at [facility] for increa sed dyspnea, edema, and back pain due to acute heart failure and new T12 compression fractur e, and heart failure exacerbation likely secondary to stopping diuretic and fall. He was also hospitalized [facility] on June 10 - June 14 for acute decompensa tion of chronic diastolic heart failure and iron deficiency anemia as well as exacerbation o f his chronic respiratory failure, and chronic A. fib . He was admitted again to [facility] September 30 - October 04, 2018 after [...] fractures, and O2 and tolerates. Lives in [facility]. Son lives nearby. Use d to live in [place] [facility] Medications Prior to Visit Medication Sig [...] branch/ramus intermedius branch, and complete occlusion RCA. [id number] involvement of the rest of the system.Good [...] atrial fib is 73 bpm, old septal ID. Nonspecific ST and T-wave abnormalities. Stress heart [...] Valsalva, 41 mm. Mobile intra-arterial septum Echo: 11/12/2017:([facility]) . Atrial fib. EF 55-60 percent. LV [...] te pulmonary hypertension, RVSP 50.90 mmHg. Trace IN. No pericardial effusion. IVC WNL, C RECTIFYING ATTENDANT normal. 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 Rate 92 bpm, QRS 92 ms, QTC 4 30 ms, wondering baseline, tracing personally reviewed by me E K10/19/2018: NS rhythm, PACs, A. fib at 85 bpm, IN 236 ms, QRS 94 ms, QTC 430 [...] hematocrit 40.8, plate lets 298. Labs: 09/30/2018: [facility] ER: CMP: Sodium 131, potassium 4.9, chloride [...] saw him last at 146-147 lbs in [facility],and think now higher weight with incr eased muscle and calories. I reviewed his labs with him and his son, and discussed with him that he does not seem fl uid overloaded on current diuretics , and seems much improved overall. I am concerned today though his heart rate is more elevated, and also has been elevated at [facility], and BP more labile recently ;and I [...] November 2018. 1. 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 Problem list. [place] BARRETO [facility] 05/06/2019 docum ented in this encounter [...] TERAN | | | | | | [place] [address] | | | | | | [phone] | | | | | | | | +--------+---------+ + + + documented as of this encounter Visit Diagnoses + + | Diagnosis | + + | Coronary artery disease of [place] artery of [place] heart with stable angina pectoris | | (HCC) - Primary | + + | History of non-ST elevation myocardial infarction (NSTEMI) Old myocardial infarction | + + | Chronic diastolic heart failure (HCC) Chronic diastolic heart failure | + + | Persistent atrial fibrillation ([facility]) Atrial fibrillation | + + | Chronic [...]
--- OUTSIDE RECORDS SUMMARY | ~2020-02-22 | XMS | Encounter Summary ---
Demographics + + + | Address | [address] | | | [place] [address] | + + + | Home Phone [...] + | Author | [facility] | | | and [place] | + + + | Organization | [facility] | | | and [...] ECON | Unknown | | | in [facility]) | | | | + + +---------+ + Care Team Providers + +------+ + | Care Digital Marketing Assistant Name | Role | Phone | + +------+ + PCP | Unavailable | + +------+ + Encounter Details +--------+ + + + + | Date | Type | Department | Care Team | Description | +--------+ + + + + | 10/25/ | Hospital | [facility] | Conversion | Pain | | 2018 | Encounter | CONVERSION [address] | Transaction, | | | | | [address] | Provider Unknown | | | | | [place], [place] | [phone] | | | | | [address] | | | | | | [phone] | | | +--------+ + + + [...] TERAN | | | | | | [place] [address] | | | | | | [phone] | | | | | | | [...]
--- OUTSIDE RECORDS SUMMARY | ~2020-02-22 | XMS | Encounter Summary ---
Demographics + + + | Address | [address] | | | [place] [address] | + + + | Home Phone | | + + + | Preferred Language | Unknown | + + + | Marital Status | | + + + | Congregation Affiliation | 1077 | + + + [...] | Unknown | | | in [facility]) | | | | + + +---------+ + Care Team Providers + +------+ + | Care Multiple Tube Winding Machine Operator Name | Role | Phone | + +------+ + | Nalini Jonse MD | PCP | | + +------+ + Reason for Visit + + + | Reason | Comments | + + + | Follow-up, Office | 2 month | | Visit | | + + + Encounter Details +--------+---------+ + + + | Date | Type | Department | Care Team | Description | +--------+---------+ + + + | 09/26/ | Office | [facility] | Jody Lebron | Persistent atrial | | 2020 | Visit | CARDIOLOGY REGGIE | [address] | fibrillation (HCC) | | | | [address] | [place] [address] | (Primary Dx); | | | | [address] | [place] [address] | Chronic diastolic | | | | [place] | [phone] | heart failure (HCC); | | | | [address] | | Coronary artery | | | | [phone] | | disease of [place] | | | | | | artery of [place] | | | | | | heart [...] strain that is spread mainly from pers kz-pf-qlfysw through respiratory droplets when an infected person [...] are not available, use an alcohol-based hand box press operator with at least 60 % alcohol covering [...] need to sindhu l 911, notify the trimmer operator that you have or think you [...] local public health website. CDC: COVID-19: https://www.cdc.gov/coronavirus/2019-ncov/index.html [place] Coronavirus Advisory: https://www.lequire.org/ibakmjgs-ewq-cqiztycq/coron avirus-advisory Virtual Visits Available https://virtual.providence.org/ documented in [...] he also lives in assisted living at [facility]. He was previously been a patient of ,and last seen by him 10/16/2017, and also has been seen by heart failure TELEMARKETER, Cornelia Escudero , last on 01/2018. He has now established care with Dr. Keating , who is his local primary signals officer, an d last seen by him in [...] on Eliquis 2.5 mg twice daily for [id number] VASC score is 5 (CHF, a ge, vasc dis,) . Though previously documented as valvular atrial fibrillation , he has not undergone valve surgery, either repair or replacement, and does not have severe rheumatic mitral stenosis. He was previously hospitalized on November 1405/2018 until December 022017 at [facility] for increa sed dyspnea, edema, and back pain due to acute heart failure and new T12 compression fractur e, and heart failure exacerbation likely secondary to stopping diuretic and fall. He was also hospitalized [facility] on June 10 - June 14, 2018 for acute deco mpensation of chronic diastolic heart failure and iron deficiency anemia as well as exacerba tion of his chronic respiratory failure, and chronic A. fib . He was admitted again to [facility] September 30 - October 04, 2018 after [...] Labs . His vital sign record from [facility] documents blood pressure has also been well [...] 09/1999. EtOH use. seldom now, [facility], . Drinks 1 servings of caffeine daily . Denies recreational or illicit drug use. Exercises with occasional walking , limited by pain from compression fractures, and O2 and tolerates. Lives in [place] [facility]. Son lives nearby. Use d to live in [place] [facility] Medications Prior to Visit Medication Sig [...] branch/ramus intermedius branch, and complete occlusion RCA. Drtk-dm-yuekdoyu involvement of the rest of the system.Good [...] atrial fib is 73 bpm, old septal PA. Nonspecific ST and T-wave abnormalities. Stress heart [...] Valsalva, 41 mm. Mobile intra-arterial septum Echo: 11/12/2017:([facility]) . Atrial fib. EF 55-60 percent. [...] te pulmonary hypertension, RVSP 50.90 mmHg. Trace WI. No pericardial effusion. IVC WNL, C LIVESTOCK BROKER normal. 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 Rate 92 bpm, QRS 92 ms, QTC 4 30 ms, wondering baseline, tracing personally reviewed by wy E K10/19/2018: NS rhythm, PAC's, A. fib at 85 bpm, WI 236 ms, QRS 94 ms, QTC 430 ms jose luis ng personally reviewed by wy, also had atrial fib with controlled ventricular response at 62 bpm captured when EKG tracing allowed to run EK06/24/2019:(bisoprolol 2.5 mg) Atrial fib with RVR, occasional PVC. Rate 123 bpm, QRS 90 ms, QTC 449 ms, tracing personally reviewed by wy EK07/29/2019:( bisoprolol 5 mg ) Sinus rhythm with occasional PAC. Rate 63 bpm, WI 178 ms, QRS 98 ms, QTC 405 ms, tracing personally reviewed by me, and compared to EKG performed on June 24, sinus rhythm has replaced atrial fib, and rate now well controlled LABS Labs: 03/31/2018: BMP: Sodium 139, potassium 3.9, chloride 95, glucose 96, BUN 20, creatinin e 0.69, GFR 109 Labs: 03/27/2018:( [facility] ER) CMP: Sodium 134, potassium 5.7, [...] hematocrit 40.8, plate lets 298. Labs: 09/30/2018: [facility] ER: CMP: Sodium 131, potassium 4.9, chloride [...] failure (HCC) 3. 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 Allergies, current medications.labs Family history, past medical history, past social history, past surgical history. Problem list. This encounter was dictated with voice recognition software and may contain inadvertent rec ognition errors. Portions of this chart may have been copied from previous notes for continuity of care purp ose [place] BARRETO [facility] 09/27/2019 docume nted in this encounter Plan of Treatment +--------+---------+ + + + | Date | Type | Specialty | Care Team | Description | +--------+---------+ + + + | 06/22/ | Office | Cardiology | Jody Lebron | | 2019 | Visit | | [address] | | | | | | [address] | | | | | | [place] [address] | | | | | | [phone] | | | | | | | | +--------+---------+ + + + documented as of this encounter Visit Diagnoses + + | Diagnosis | + + | Persistent atrial fibrillation (HCC) - Primary Atrial fibrillation | + + | Chronic diastolic heart failure (HCC) Chronic diastolic heart failure | + + | Coronary artery disease of [place] artery of [place] heart with stable angina pectoris | | [...]
--- OUTSIDE RECORDS SUMMARY | ~2020-02-22 | XMS | Encounter Summary ---
Demographics + + + | Address | [address] | | | [place] [address] | + + + | Home Phone [...] Team Providers + +------+ + | Care Kiln Furniture Caster Name | Role | Phone | + +------+ + PCP | Unavailable | + +------+ + Encounter Details +--------+ + + + + | Date | Type | Department | Care Team | Description | +--------+ + + + + | 10/25/ | Hospital | [facility] | Conversion | Pain | | 2018 | Encounter | CONVERSION [address] | Transaction, | | | | | [address] | Provider Unknown | | | | | [place], [place] | [phone] | | | | | [address] | | | | | | [phone] | | | +--------+ + + + [...] TERAN | | | | | | [place] [address] | | | | | | [phone] | | | | | | | [...]
--- OUTSIDE RECORDS SUMMARY | ~2020-02-22 | XMS | Encounter Summary ---
Demographics + + + | Address | [address] | | | [place] [address] | + + + | Home Phone | | + + + | Preferred Language | Unknown | + + + | Marital Status | | + + + | Amish Affiliation | 1077 | + + + | Race | White | + + + | Ethnic Group | Not or | + + + Author + + + | Author | [facility] | | | and [place] | + + + | Organization | [facility] | | [...] ECON | Unknown | | | in [facility]) | | | | + + +---------+ + Care Team Providers + +------+ + | Care Government Sales Manager Name | Role | Phone | + +------+ + | Nalini Jones MD | PCP | | + +------+ + Encounter Details +--------+ + + + + | Date | Type | Department | Care Team | Description | +--------+ + + + + | 08/22/ | Orders Only | [facility] | Enzo Knox Levi, | | | 2017 | | CARDIOLOGY LYERLY | [address] | | | | | [address] | [place] [address] | | | | | [address] | [phone] | | | | | [place], [place] | | | | | | [address] | | | | | | [phone] | | | +--------+ + + + [...] TERAN | | | | | | [place] [address] | | | | | | [phone] | | | | | | | [...] Performed At | + + + | [facility] C[facility] [address], [facility] [place], [place] | | | [phone] NUCLEAR TREADMILL STRESS TEST ? TEST DATE: [...] ECG: Atrial fibrillation rate 73. Old septal IN. | | | Nonspecific ST and T wave abnormalities. STRESS DATA: Exercise | | | Time: 3:14 minutes, Heart Rate achieved: 148 bpm, Max BP: 139/69, RPP: | | | [id number]. METS: 5.10. The patient walked to 108% [...] [place], Rad Conversion - 02/25/2019 7:08 PM [facility] [id number] | | Dr [place], [phone] NUCLEAR TREADMILL STRESS TEST?TEST DATE: | | 08/22/2016NAME: Yeyo LeidaDOB: 1930MRN: [id number] MD: Enzo Knox MD | | INDICATION [...] ECG: Atrial fibrillation rate 73. Old septal IN. Nonspecific ST and | | T wave abnormalities. STRESS DATA: Exercise Time: 3:14 minutes, Heart Rate achieved: 148 | | bpm, Max BP: 139/69, RPP: 19169. METS: 5.10. The patient walked to 108% [...] ECG: Atrial fibrillation rate 73. Old septal IN . Nonspecific ST and T wave abnormalities. | | | |STRESS DATA: Exercise Time: 3:14 minutes, Heart Rate achieved: 148 bpm, Max BP: 139/69, RPP : [id number]. METS: 5.10. The patient walked to 108% [...]
--- OUTSIDE RECORDS SUMMARY | ~2020-02-22 | XMS | Encounter Summary ---
Demographics + + + | Address | [address] | | | [place] [address] | + + + | Home Phone | | + + + | Preferred Language | Unknown | + + + | Marital Status | | + + + | Episcopalian Affiliation | 1077 | + + + [...] | Unknown | | | in [facility]) | | | | + + +---------+ + Care Team Providers + +------+ + | Care Electronic Equipment Installer Name | Role | Phone | + +------+ + PCP | Unavailable | + +------+ + Encounter Details +--------+ + + + + | Date | Type | Department | Care Team | Description | +--------+ + + + + | 09/08/ | Hospital | [facility] | Conversion | Diagnosis unknown | | 2018 | Encounter | CONVERSION [address] | Transaction, | | | | | [address] | Provider Unknown | | | | | [place], [place] | | | | | | [address] | (Fax) | | | | | [phone] | | | +--------+ + + + [...] TERAN | | | | | | [place] [address] | | | | | | [phone] | | | | | | | [...]
--- OUTSIDE RECORDS SUMMARY | ~2020-02-22 | XMS | Encounter Summary ---
Demographics + + + | Address | [address] | | | [place] [address] | + + + | Home Phone | | + + + | Preferred Language | Unknown | + + + | Marital Status | | + + + | Orthodox Affiliation | 1077 | + + + | Race | White | + + + | Ethnic Group | Not or | + + + Author + + + | Author | [facility] | | | and [place] | + + + | Organization | [facility] | | | and [...] ECON | Unknown | | | in [facility]) | | | | + + +---------+ + Care Team Providers + +------+ + | Care Lpn Cma Name | Role | Phone | + +------+ + PCP | Unavailable | + +------+ + Encounter Details +--------+ + + + + | Date | Type | Department | Care Team | Description | +--------+ + + + + | 10/25/ | Hospital | [facility] | Conversion | Pain | | 2018 | Encounter | CONVERSION [address] | Transaction, | | | | | [address] | Provider Unknown | | | | | [place], [place] | [phone] | | | | | [address] | | | | | | [phone] | | | +--------+ + + + [...] TERAN | | | | | | [place] [address] | | | | | | [phone] | | | | | | | [...]
--- OUTSIDE RECORDS SUMMARY | ~2020-02-22 | XMS | Encounter Summary ---
Demographics + + + | Address | [address] | | | [place] [address] | + + + | Home Phone | | + + + | Preferred Language | Unknown | + + + | Marital Status | | + + + | Amish Affiliation | 1077 | + + + | Race | White | + + + | Ethnic Group | Not or | + + + Author + + + | Author | [facility] | | | and [place] | + + + | Organization | [facility] | | | [...] Unknown | | | in [facility]) | | | | + + +---------+ + Care Team Providers + +------+ + | Care Turf Grower Name | Role | Phone | + +------+ + PCP | Unavailable | + +------+ + Encounter Details +--------+ + + + + | Date | Type | Department | Care Team | Description | +--------+ + + + + | 10/25/ | Hospital | [facility] | Conversion | Pain | | 2018 | Encounter | CONVERSION [address] | Transaction, | | | | | [address] | Provider Unknown | | | | | [place], [place] | [phone] | | | | | [address] | | | | | | [phone] | | | +--------+ + + + [...] TERAN | | | | | | [place] [address] | | | | | | [phone] | | | | | | | [...]
[~2020-02-22 18:59] MED LIST changes: +ADULT LOW DOSE81 MG PO; -ANORO ELLIPTA1 EACH INH; +ANORO ELLIPTA1 EACH PO; -ASPIR 8181 MG PO
--- OUTSIDE RECORDS SUMMARY | 2020-02-22 19:02 | XMS ---
PreManage Notification: RUDY MARTI Security [employer] Events No recent Security Events currently on file CRITERIA MET - [facility] - Has Care Guidelines - PDMP - [facility] - 2 Visits in 30 Days CARE PROVIDERS THUY JONES Family [facility] 12/29/2019-Current PHONE: [phone] Ricky Douglass DO [facility] Current PHONE: [phone] CANDIDO STEINER Internal Medicine: Pulmonary Disease 03/30/2018-Current PHONE: Unknown Ahmet has no Care Guidelines for this patient. Care History Medical/Surgical 02/21/2020 [facility] Scheduled visit with PCP Dr. Jones on 02/24/2020 12/30/2019 [facility] Patient will contact Dr. Jones if follow up needed. 03/30/2018 [facility] - Patient is currently established with [facility]. If patient is seen in the ED during business hours. Please contact CHWs at [facility]. Care Recommendation: This patient has had 5 [...] providing care. E.D. VISIT COUNT (12 MO.) 3 [facility] TOTAL 3 NOTE: Visits indicate total known visits. ED/UCC VISIT TRACKING (12 MO.) 02/22/2020 19:00 RO[facility]IO [facility] [place] TYPE: Emergency COMPLAINT: - WEAKNESS/ALTERED LOC 02/19/2020 10:44 [facility] [place] TYPE: Emergency COMPLAINT: - FALL DIAGNOSES: - Heart failure, unspecified - Other mcc (current) drug therapy - Personal history of nicotine dependence - Encounter for examination and observation following other acc - Unspecified atrial fibrillation - Chronic obstructive pulmonary disease, unspecified 12/28/2019 19:44 [facility] [place] TYPE: Emergency COMPLAINT: - GLF DIAGNOSES: - Chronic obstructive pulmonary disease, unspecified - Personal history of nicotine dependence - Other mcc (current) drug therapy - Encounter for immunization - Heart failure, unspecified - 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
[2020-02-22] MEDS ORDERED: GABAPENTIN100 MG PO (19:33)
[2020-02-23] MEDS ORDERED: BISOPROLOL FUMAR5 MG PO (09:56)
[2020-02-23] MEDS ORDERED: PERCOCET 5-3251 EACH PO (10:01)
[2020-02-23] MEDS ORDERED: ALDACTONE25 MG PO (10:08)
[2020-02-23] MEDS ORDERED: TORSEMIDE10 MG PO (10:09)
[2020-02-23] MEDS ORDERED: ACETAMINOPHEN325 M1 PO (10:15)
--- NOTE | 2020-02-23 14:36 | EKG ---
[facility] [address] [place] [address] Signed Atrial fibrillation Nonspecific ST and T wave abnormality Abnormal ECG When compared with ECG of 30-SEP-2018 17:47, Atrial fibrillation has replaced Sinus rhythm Vent. rate has increased BY [address] now depressed in Lateral leads Nonspecific T wave abnormality no longer evident in Anterior leads Confirmed by MELQUIADES SANCHEZ MD ([id number] on 02/23/2020 2:36:19 PM Electronically Signed By: MELQUIADES SANCHEZ MD 02/23/20 1436 PATIENT NAME: RUDY MARTI Electrocardiogram DATE OF : 34 PHYSICIAN: MELQUIADES SANCHEZ MD REPORT #: [id number] REPORT IS CONFIDENTIAL AND NOT TO BE RELEASED WITHOUT AUTHORIZATION
[2020-02-28] MEDS ORDERED: PERCOCET 5-3251 EACH PO (12:12)
[2020-02-28] MEDS ORDERED: TORSEMIDE10 MG PO (12:13)
== END 2020-02-28 13:25 | disposition home or self-care (01) | DRG 291 ==
LOC: ED 18:59 → MS 23:58
PROVIDERS: ADMIT Internal Medicine
DX: I50.33 Acute on chronic diastolic (congestive) heart failure (principal); J96.22 Acute and chronic respiratory failure with hypercapnia; J44.1 Chronic obstructive pulmonary disease with (acute) exacerbation; Z20.828 Contact with and (suspected) exposure to other viral communicable diseases; M54.9 Dorsalgia, unspecified; J98.6 Disorders of diaphragm; E78.5 Hyperlipidemia, unspecified; I08.1 Rheumatic disorders of both mitral and tricuspid valves; I27.20 Pulmonary hypertension, unspecified; G89.4 Chronic pain syndrome; R39.15 Urgency of urination; E87.5 Hyperkalemia; T50.0X5A Adverse effect of mineralocorticoids and their antagonists, initial encounter; Z66 Do not resuscitate; Z87.891 Personal history of nicotine dependence; Z88.5 Allergy status to narcotic agent; Z79.899 Other long term (current) drug therapy; Z79.01 Long term (current) use of anticoagulants; Z79.82 Long term (current) use of aspirin; Z79.891 Long term (current) use of opiate analgesic
CPT/HCPCS: 36415; 70450; 71045; 80048; 80053; 81001; 82803; 83605; 83735; 83880; 84100; 84484; 85025; 85651; 93005; 93010; 93306; 94640; 94644; 94660; 94760; 94762; 96374; 99285-25; C9803; J2920; J7512; U0003